=== PATIENT | male | born 1950 | race Caucasian/White ===

== ENCOUNTER 2016-12-25 21:20 | Inpatient (IN) | payer MEDICARE, MEDICAID ==
--- NOTE | 2016-12-25 21:42 | ED Physician Chart ---
Chief Complaint/HPI - Patient Information Date Seen:: 12/25/16 Time Seen:: 21:17 Chief Complaint:: ABDOMINAL PAIN History of Present Illness:: THIS IS A 66 YR OLD [facility] PATIENT SENT HERE FOR AN EVALUATION OF HIS ABDOMINAL PAIN AND DIZZINESS. HE IS CHRONICALLY ILL WITH COPD, CONVULSIONS, OBESITY AND PARKINSON'S . Allergies:: Allergies Allergy/AdvReac Type Severity Reaction Status Date / Time Penicillins Allergy Verified 12/25/16 21:30 Historian:: Patient Review:: Nurse's Note Reviewed Review of Systems - Review of Systems General/Constitutional: No fever, No chills, No weight loss, No weakness, No diaphoresis, No edema, No loss of appetite Skin: No skin lesions, No rash, No bruising, Other (THSI PATIENT IS NOT A RELIABLE HISTORIAN) Head: No headache, No light-headedness Eyes: No loss of vision, No pain, No diplopia ENT: No earache, No nasal drainage, No sore throat, No tinnitus Neck: No neck pain, No swelling, No thyromegaly, No stiffness, No mass noted Cardio Vascular: No chest pain, No palpitations, No PND, No orthopnea, No edema Pulmonary: No SOB, No cough, No sputum, No wheezing GI: No nausea, No vomiting, No diarrhea, No pain, No melena, No hematochezia, No constipation, No hematemesis G/U: No dysuria, No frequency, No hematuria Musculoskeletal: No bone or joint pain, No back pain, No muscle pain Endocrine: No polyuria, No polydipsia Psychiatric: No prior psych history, No depression, No anxiety, No suicidal ideation Hematopoietic: No bruising, No lymphadenopathy Allergic/Immuno: No urticaria, No angioedema Neurological: No syncope, No focal symptoms, No weakness, No paresthesia, No headache, No seizure, No dizziness, No confusion, No vertigo Past Medical History - Past Medical History Obtainable: Yes Past Medical History: HTN, Asthma/COPD, Dyslipidemia, Seizures, Cataract Family History: None Social History: Non Smoker, No Alcohol, No Drug Use Surgical History: None Psychiatricy History: Schizophrenia, Bipolar, Dementia Medication: Reviewed Family Medical History - Family Member Mother History Unknown: Yes Physical Exam - Physical Examination General/Constitutional: Awake, Well-developed, well-nourished, Alert, No distress, GCS 15, Non-toxic appearing, Ambulatory Head: Atraumatic Eyes: Lids, conjuctiva normal, PERRL, EOMI Skin: Nl inspection, No rash, No skin lesions, No ecchymosis, Well hydrated, No lymphadenopathy ENMT: External ears, nose nl, Nasal exam nl, Lips, teeth, gums nl Neck: Nontender, Full ROM w/o pain, No JVD, No nuchal rigidity, No bruit, No mass, No stridor Respiratory: Nl effort/Exclusion, Clear to Auscultation Other Respiratory comments:: BILATERAL RHONCHI WITH A FEW WHEEZES Cardio Vascular: RRR, No murmur, gallop, rubs, NL S1 S2 GI: No organomegaly, No hernia, Normal BS's, No mass/bruits, No McBurney tenderness Other GI comments:: THERE IS MINIMAL RIGHT LOWER QUADRANT TENDERNESS. ABDOMEN IS SLIGHTLY DISTENDED : No CVA tenderness Extremities: No tenderness or effusion, Full ROM, normal strength in all extremities, No edema, Normal digits & nails Other Extremities comments:: SIGNIFICANT MUSCLE WASTING IN ALL FOUR EXTREMITIES. Neuro/Psych: Alert/oriented, DTR's symmetric, Normal sensory exam, Normal motor strength, Judgement/insight normal, Mood normal, Normal gait, No focal deficits Misc: normal gait, Normal back, No paraspinal tenderness Labs/Radiology/EKG Results - Lab Results Results: Laboratory Results - last 24 hr 12/25/16 12/25/16 12/25/16 21:50 21:50 21:50 WBC 11.7 H D RBC 4.58 Hgb 14.8 Hct 43.8 MCV 95.6 MCH 32.4 H MCHC Differential 33.9 RDW 13.5 Plt Count 207 MPV 9.4 Neutrophils % 74.8 Lymphocytes % 11.9 L Monocytes % 5.7 Eosinophils % 5.3 H Basophils % 2.3 H PT 11.7 H INR 1.17 Sodium 137 Potassium 4.1 Chloride 105 Carbon Dioxide 31.0 Anion Gap 5.1 L BUN 22 Creatinine 0.9 Est GFR ( Amer) > 60.0 Est GFR (Non-Af Amer) > 60.0 BUN/Creatinine Ratio 24.4 Glucose 134 H Calcium 9.9 Total Bilirubin 0.4 AST 17 ALT 7 Alkaline Phosphatase 38 Troponin I Total Protein 7.6 Albumin 4.0 L Globulin 3.6 Albumin/Globulin Ratio 1.1 Urine Source Urine Color Urine Clarity Urine pH Ur Specific [place] Urine Protein Urine Glucose (UA) Urine Ketones Urine Blood Urine Nitrate Urine Bilirubin Urine Urobilinogen Ur Leukocyte Esterase Urine RBC Urine WBC Ur Epithelial Cells Urine Bacteria 12/25/16 12/25/16 21:50 22:00 WBC RBC Hgb Hct MCV MCH MCHC Differential RDW Plt Count MPV Neutrophils % Lymphocytes % Monocytes % Eosinophils % Basophils % PT INR Sodium Potassium Chloride Carbon Dioxide Anion Gap BUN Creatinine Est GFR ( Amer) Est GFR (Non-Af Amer) BUN/Creatinine Ratio Glucose Calcium Total Bilirubin AST ALT Alkaline Phosphatase Troponin I 0.01 Total Protein Albumin Globulin Albumin/Globulin Ratio Urine Source CLEAN C Urine Color YELLOW Urine Clarity CLEAR Urine pH 7.0 Ur Specific [place] 1.025 Urine Protein NEGATIVE Urine Glucose (UA) NEGATIVE Urine Ketones TRACE Urine Blood NEGATIVE Urine Nitrate NEGATIVE Urine Bilirubin NEGATIVE Urine Urobilinogen 1.0 Ur Leukocyte Esterase NEGATIVE Urine RBC 0-2 H Urine WBC 0-2 Ur Epithelial Cells OCCASIONAL Urine Bacteria OCCASIONAL - Radiology Results Results: CHEST X-RAY = CARDIOMEGALY - EKG Interpretations EKG Time:: 21:40 Rhythm: NORMAL SINUS [place]: LEFT AXIS Rate: 74 ED Septic Shock - . Is Septic Shock (SBP<90, OR Lactate>4 mmol\L) present?: No Reassessment (Disposition) - Reassessment Reassessment Condition:: Unchanged - Diagnosis Diagnosis:: ABDOMINAL PAIN BRONCHITIS - Patient Disposition Discharge/Transfer:: Acute Care w/in this hosp Admitting Medical Physician:: Juno Harden Condition at Disposition:: Unchanged
[2016-12-25 22:09] LABS: % BASOPHILS 2.3 % (0.0-2.0); % EOSINOPHILS 5.3 % (0.0-5.0); % LYMPHOCYTES 11.9 % (20.0-50.0); % MONOCYTES 5.7 % (2.0-10.0); % NEUTROPHILS 74.8 % (40.0-80.0); HEMATOCRIT 43.8 % (39.0-49.0); HEMOGLOBIN 14.8 gm/dL (13.2-17.3); MEAN CELL VOLUME 95.6 fl (80-99); MEAN CORPUSCULAR HEMOGLOBIN 32.4 pg (26.0-30.0); MEAN CORPUSCULAR HGB CONC 33.9 pg (28.0-36.0); MEAN PLATELET VOLUME 9.4 fl; NEUTROPHILE ABSOLUTE 8.7 Th/cmm (1.8-8.0); PLATELET COUNT 207 Th/cmm (150-400); RED BLOOD COUNT 4.58 Mil/cmm (4.30-5.70); RED CELL DISTRIBUTION WIDTH 13.5 % (11.5-20.0)
[2016-12-25 22:10] LABS: WHITE BLOOD COUNT 11.7 Th/cmm (4.8-10.8)
[2016-12-25 22:16] LABS: ALB/GLOB RATIO 1.1 (1.0-1.8); ALKALINE PHOSPHATASE 38 U/L (34-104); ANION GAP 5.1 (7.0-16.0); BILIRUBIN,TOTAL 0.4 mg/dL (0.3-1.0); BUN - UREA NITROGEN 22 mg/dL (7-25); BUN/CREATININE RATIO 24.4; CALCIUM SERUM 9.9 mg/dL (8.6-10.3); CHLORIDE 105 mEq/L (98-107); CREATININE - SERUM 0.9 mg/dL (0.7-1.3); GLUCOSE 134 mg/dL (70-105); POTASSIUM SERUM 4.1 mEq/L (3.5-5.1); SGOT 17 U/L (13-39); SGPT/ALT 7 U/L (7-52); SODIUM SERUM 137 mEq/L (136-145)
[2016-12-25 22:17] LABS: INR 1.17 (0.5-1.4); PROTHROMBIN TIME (TEST) 11.7 SECONDS (9.5-11.5)
[2016-12-25 22:28] LABS: URINE BILIRUBIN NEGATIVE (NEGATIVE); URINE BLOOD NEGATIVE (NEGATIVE); URINE COLOR YELLOW; URINE GLUCOSE (UA) NEGATIVE (NEGATIVE); URINE KETONE TRACE mg/dL (NEGATIVE)
[2016-12-25 22:29] LABS: URINE BACTERIA OCCASIONAL /hpf (NONE SEEN); URINE EPITHELIAL CELLS OCCASIONAL /lpf (FEW); URINE PROTEIN NEGATIVE (NEGATIVE); URINE RBC 0-2 /hpf (0-5); URINE WBC 0-2 /hpf (0-5)
[2016-12-25] MEDS ORDERED: Magnesium Hydroxide (MOM) 30 mL UDC PO PRN (22:56)
[2016-12-25] MEDS ORDERED: Maalox 30 mL Cup PO PRN (22:56)
[2016-12-25] MEDS ORDERED: guaiFENesin 200 MG/10 ML UDC PO PRN (23:00)
[2016-12-25] MEDS ORDERED: Ipratropium Neb 0.5 mg/2.5 mL UD HHN ONE (23:12)
[2016-12-25] MEDS ORDERED: Albuterol Nebulizer 2.5mg/3mL HHN ONE (23:12)
[2016-12-26] MEDS: D5-0.45NS 1,000 ML IV SCH ×2 (00:11→12:34)
[2016-12-26] MEDS ORDERED: Levofloxacin 500mg/100mL 500 MG/100 ML BAG IV ONE (01:46)
[2016-12-26] MEDS: Levofloxacin 500mg/100mL 500 MG/100 ML BAG IV SCH ×2 (01:57→23:04)
[2016-12-26] MEDS: Lactulose 10 Gm/15 mL 30mL UDC PO SCH ×3 (08:09→17:56)
[2016-12-26] MEDS ORDERED: Ipratropium Neb 0.5 mg/2.5 mL UD HHN SCH ×2 (09:00→11:00)
[2016-12-26] MEDS ORDERED: Albuterol Nebulizer 2.5mg/3mL HHN SCH ×2 (09:00→11:00)
[2016-12-26] MEDS: Aspirin 81mg Chewable Tab PO SCH (09:40)
[2016-12-26] MEDS: Benztropine 1 MG TAB PO SCH ×2 (09:41→17:53)
[2016-12-26] MEDS: Fenofibrate, Micronized 134 mg Cap PO SCH (09:42)
[2016-12-26] MEDS: Pantoprazole 40 mg EC Tab PO SCH ×2 (09:44→17:54)
[2016-12-26] MEDS: Multivitamin Tab PO SCH (09:44)
--- NOTE | 2016-12-26 11:24 | Diagnostic Imaging Report ---
Portable chest x-ray HISTORY: Shortness of breath The heart size is difficult to assess with portable technique in a poor inspiration, but appears generous. Density is noted about the left costophrenic angle suggesting a small pleural effusion. IMPRESSION: 1. Findings suggesting a small left pleural effusion 2. Suggestion of a generous heart size
--- NOTE | 2016-12-26 20:06 | Admit Criteria Form ---
Admit Criteria Forms - Admit Criteria Diagnosis: ABDOMINAL PAIN Clinical Indications for Admission to Inpatient Care (Place 'X' for any and all applicable criteria): Admission is indicated for ANY ONE of the following(1)(2)(3)(4)(5): [X]I. Inpatient admission required rather than observation care (Also use Abdominal Pain: Observation Care, as appropriate) because of ANY ONE of the following: [ ]a) Severe pain requiring acute inpatient management [ ]b) Identification of etiology/finding that requires inpatient care (eg, aortic dissection, free air) [ ]c) Absent bowel sounds with complete ileus(6) [ ]d) Suspected toxic megacolon [ ]e) Severe electrolyte abnormalities requiring inpatient care [ ]f) High fever or infection requiring inpatient admission as indicated by ANY ONE of following(7)(8): [ ] i) Appropriate outpatient or observational care antimicrobial treatment unavailable, not effective, or not feasible [ ] ii) Documented bacteremia [ ] iii) Temperature > 104.9 degrees F (oral) [ ] iv) T >103.1 F (oral) or < 96.8 F(rectal) that does not respond to all emergency treatment measures [ ]g) Signs of intestinal obstruction [B] [ ]h) Hemodynamic instability [ ]i) IV fluid to replace significant ongoing losses (greater than 3 L/m2 per day) (12)(13) [ ]j) Percutaneous or open drainage (eg, abscess, biliary tract ) procedures [ ]k) Parenteral nutrition regimen that must be implemented on inpatient basis [X]l) Other condition,treatment or monitoring requiring inpatient admission. [ ]II. Peritoneal signs present [ ]III. Surgery needed that cannot be performed on an ambulatory basis. [ ]IV. Evaluation requires patient to not eat or drink for extended period ( eg, more than 24 hours). [ ]V. Contraindications and/or Inappropriate clinical situations for Observational Care in patients with abdominal pain, when ANY ONE of the following is required: [ ]a) Thorough evaluation is required to prevent catastrophic events due to delays in diagnosing (e.g.Mesenteric ischemia) 1,3 [ ]b) Patient with severe pathology or with chronic symptoms unlikely to improve in the ED stay (3) [ ]. General contraindications and/or Inappropriate clinical situations for Observational Care in patients with abdominal pain, when ANY ONE of the following is required: [ ]a) Prediction of prolongation of LOS based on ANY ONE of the following may be considered as a contraindication for observational care 2, 3, 4, 5, 6, 7, 8, 9, 10, 11 [ ]i) Age > 65 yrs. [ ]ii) Patient arriving by ambulance [ ]iii) Patient with high acuity [ ]iv) Patient requiring vital sign monitoring [ ]v) Patient on IV medication [ ]b) Systolic blood pressures 180mmHg 3,12 [ ]c) Patient with altered mental status including delirium and other alteration of consciousness, (3) [ ]d) Patient whose discharge disposition will be to a usp home or rehabilitation home should not be managed in Emergency Department Observation Unit. CMS rule requires 3 days hospital stay before such placement.3,13 [ ]e) Patient with failure to thrive due to broad array of etiologies 3,16,17 [ ]f) Inability to ambulate 3,14 Extended stay beyond goal length of stay may be needed for(2)(3): [ ]a) Persistent abdominal pain with suspected intra-abdominal process [ ]b) Diagnosed condition requiring continued stay (e.g., pancreatitis, complicated diverticulitis) [ ]c) Surgery (e.g., colectomy) The original [facility] content created by [employer] has been revised. The portions of the content which have been revised are identified through the use of italic text or in bold, and [facility] has neither reviewed nor approved the modified material.All other unmodified content is copyright [facility]. Please see references footnoted in the original [facility] edition 2016 Admit Criteria Met?: Yes
[2016-12-26] MEDS: Atorvastatin Calcium 10 MG TAB PO SCH (20:50)
[2016-12-27 05:57] LABS: HEMATOCRIT 39.7 % (39.0-49.0); HEMOGLOBIN 13.5 gm/dL (13.2-17.3); MEAN CELL VOLUME 96.3 fl (80-99); MEAN CORPUSCULAR HEMOGLOBIN 32.7 pg (26.0-30.0); MEAN CORPUSCULAR HGB CONC 33.9 pg (28.0-36.0); MEAN PLATELET VOLUME 8.7 fl; PLATELET COUNT 181 Th/cmm (150-400); RED BLOOD COUNT 4.12 Mil/cmm (4.30-5.70); RED CELL DISTRIBUTION WIDTH 13.8 % (11.5-20.0); WHITE BLOOD COUNT 5.4 Th/cmm (4.8-10.8)
[2016-12-27 06:13] LABS: ALB/GLOB RATIO 1.1 (1.0-1.8); ALKALINE PHOSPHATASE 35 U/L (34-104); ANION GAP 2.2 (7.0-16.0); BILIRUBIN,TOTAL 0.3 mg/dL (0.3-1.0); BUN - UREA NITROGEN 17 mg/dL (7-25); BUN/CREATININE RATIO 18.9; CALCIUM SERUM 8.8 mg/dL (8.6-10.3); CARBON DIOXIDE 30.7 mEq/L (21.0-31.0); CHLORIDE 104 mEq/L (98-107); CREATININE - SERUM 0.9 mg/dL (0.7-1.3); GLUCOSE 89 mg/dL (70-105); MAGNESIUM 1.6 mg/dL (1.9-2.7); POTASSIUM SERUM 3.9 mEq/L (3.5-5.1); SGOT 12 U/L (13-39); SGPT/ALT 5 U/L (7-52); SODIUM SERUM 133 mEq/L (136-145)
[2016-12-27] MEDS: Lactulose 10 Gm/15 mL 30mL UDC PO SCH ×4 (06:51→17:37)
[2016-12-27 07:51] LABS: BASOPHIL 1 % (0-3); EOSINOPHIL 16 % (0-5); NEUTROPHILS 42 % (40-80); PLATELET ESTIMATE ADEQUATE (NORMAL); PLATELET MORPHOLOGY NORMAL (NORMAL); TOTAL CELLS COUNTED 100
--- NOTE | 2016-12-27 09:00 | History & Physical ---
CHIEF COMPLAINT: Abdominal pain and shortness of breath. HISTORY OF PRESENT ILLNESS: This is a 66-year-old male with a history of stroke, DJD, hypercholesterolemia, schizoaffective disorder and Parkinson's, was admitted from nursing facility secondary to not feeling well with increasing shortness of breath, generalized weakness. The patient was also complaining of abdominal discomfort. The patient is not a best historian. PAST MEDICAL HISTORY: As mentioned in history of present illness. PAST SURGICAL HISTORY: Status post ELECTRICIAN CHIEF shunt, craniotomy. ALLERGIES: PENICILLIN. The patient was given Rocephin ____. MEDICATIONS: Tylenol, aspirin, Lipitor, Cogentin, Sinemet, Depakote, ____, lactulose, magnesium, multivitamins, Ditropan, ____, BuSpar. FAMILY HISTORY: Noncontributory. SOCIAL HISTORY: The patient is a residential patient requiring 24-hour total care. The patient is an avid smoker. PHYSICAL EXAMINATION: VITAL SIGNS: Blood pressure 110/66, respirations 18, pulse 67, temperature 98.4. GENERAL: Elderly male who appears his stated age and appears chronically ill. NECK: Supple. No mass. LUNGS: Equal breath sounds with a few rhonchi. HEART: Regular rate and rhythm without appreciable murmurs. ABDOMEN: Soft, nontender, and globular. Positive bowel sounds. EXTREMITIES: ____ excoriations. Trace edema. NEUROLOGIC: Limited, moving 4 extremities. LABORATORY DATA: WBC ____, hemoglobin 14, ____. INR 1.1. Sodium 137, potassium 4.1, BUN 22, creatinine 0.9, blood sugar 134, and albumin 4.0. ASSESSMENT AND PLAN: Acute chronic obstructive pulmonary disease exacerbation, acute bronchitis, generalized weakness, leukocytosis, abdominal pain of unclear etiology, stroke, degenerative joint disease, hypercholesterolemia, schizoaffective disorder and Parkinson's. We will continue with gentle IV hydration, continue IV antibiotic. We will review the patient's chest x-ray. We will ____ ultrasound. We will monitor the patient's liver function tests. We will continue to monitor the patient closely. JOB# [id number]
--- NOTE | 2016-12-27 09:20 | Diagnostic Imaging Report ---
CHEST X-RAY: AP view INDICATION: Pneumonia COMPARISON: 12/25/2016 FINDINGS: Lower lung volume are seen with bibasal atelectatic changes and small left effusion. No focal consolidation identified. Heart size is difficult to assess on this exam. IMPRESSION: Persistent low lung volumes with bibasal atelectasis and small left effusion.
[2016-12-27] MEDS: Fenofibrate, Micronized 134 mg Cap PO SCH (09:29)
[2016-12-27] MEDS: Aspirin 81mg Chewable Tab PO SCH (09:29)
[2016-12-27] MEDS: Pantoprazole 40 mg EC Tab PO SCH ×2 (09:29→17:37)
[2016-12-27] MEDS: Multivitamin Tab PO SCH (09:29)
[2016-12-27] MEDS: Benztropine 1 MG TAB PO SCH ×2 (09:30→17:37)
--- NOTE | 2016-12-27 10:29 | Diagnostic Imaging Report ---
Ultrasound abdomen HISTORY: Abdominal pain COMPARISON: None Technique: Sonography of the abdomen was performed in multiple planes. FINDINGS: Exam is markedly limited due to body habitus. The liver demonstrates increased echogenicity and measures 23cm. The liver margins are not well-defined, limiting evaluation for focal lesions. There is suboptimal visualization of the gallbladder. No discrete gallstones identified. The gallbladder wall measures 3 mm. The common bile duct was also not seen. Assessment of pancreas is also limited due to bowel gas. The right kidney measures 11.9 cm. Left kidney measures 12.8 cm. Limited evaluation of the kidneys demonstrates no obvious focal lesions or hydronephrosis. The spleen measures 12.6 cm. The proximal abdominal aorta measures 2.6 cm. The mid and distal abdominal aorta were not well visualized. IMPRESSION: Markedly limited exam due to body habitus. Hepatomegaly with increased echogenicity which may reflect underlying hepatocellular disease, correlate clinically. Suboptimal evaluation of the gallbladder. No evidence of hydronephrosis. Mild increased left renal size was noted. Borderline prominent spleen. If indicated CT exam would provide for additional detail and assessment.
[2016-12-27] MEDS: D5-0.45NS 1,000 ML IV SCH (12:41)
--- NOTE | 2016-12-27 14:23 | Internal Medicine Prog Note ---
Internal Medicine Subjective - Subjective Service Date: 12/27/16 Patient is:: awake Patient Complaints of:: cough, other Internal Medicine Objective - Results Result Diagrams: 12/27/16 05:30 12/27/16 05:30 Recent Labs: Laboratory Last Values WBC 5.4 Th/cmm (4.8-10.8) D 12/27/16 05:30 RBC 4.12 Mil/cmm (4.30-5.70) L 12/27/16 05:30 Hgb 13.5 gm/dL (13.2-17.3) 12/27/16 05:30 Hct 39.7 % (39.0-49.0) 12/27/16 05:30 MCV 96.3 fl (80-99) 12/27/16 05:30 MCH 32.7 pg (26.0-30.0) H 12/27/16 05:30 MCHC Differential 33.9 pg (28.0-36.0) 12/27/16 05:30 RDW 13.8 % (11.5-20.0) 12/27/16 05:30 Plt Count 181 Th/cmm (150-400) 12/27/16 05:30 MPV 8.7 fl 12/27/16 05:30 Neutrophils % 74.8 % (40.0-80.0) 12/25/16 21:50 Lymphocytes % 11.9 % (20.0-50.0) L 12/25/16 21:50 Monocytes % 5.7 % (2.0-10.0) 12/25/16 21:50 Eosinophils % 5.3 % (0.0-5.0) H 12/25/16 21:50 Basophils % 2.3 % (0.0-2.0) H 12/25/16 21:50 Neutrophils (Manual) 42 % (40-80) 12/27/16 05:30 Lymphocytes 32 % (20-50) 12/27/16 05:30 Monocytes 8 % (2-10) 12/27/16 05:30 Eosinophils 16 % (0-5) H 12/27/16 05:30 Basophils 1 % (0-3) 12/27/16 05:30 Atypical Lymphocytes 1 % 12/27/16 05:30 Platelet Estimate ADEQUATE (NORMAL) 12/27/16 05:30 Platelet Morphology NORMAL (NORMAL) 12/27/16 05:30 RBC Morph Micro Appear NORMAL (NORMAL) 12/27/16 05:30 PT 11.7 SECONDS (9.5-11.5) H 12/25/16 21:50 INR 1.17 (0.5-1.4) 12/25/16 21:50 Sodium 133 mEq/L (136-145) L 12/27/16 05:30 Potassium 3.9 mEq/L (3.5-5.1) 12/27/16 05:30 Chloride 104 mEq/L (98-107) 12/27/16 05:30 Carbon Dioxide 30.7 mEq/L (21.0-31.0) 12/27/16 05:30 Anion Gap 2.2 (7.0-16.0) L 12/27/16 05:30 BUN 17 mg/dL (7-25) 12/27/16 05:30 Creatinine 0.9 mg/dL (0.7-1.3) 12/27/16 05:30 Est GFR ( Amer) > 60.0 ml/min (>90) 12/27/16 05:30 Est GFR (Non-Af Amer) > 60.0 ml/min 12/27/16 05:30 BUN/Creatinine Ratio 18.9 12/27/16 05:30 Glucose 89 mg/dL (70-105) 12/27/16 05:30 Calcium 8.8 mg/dL (8.6-10.3) 12/27/16 05:30 Magnesium 1.6 mg/dL (1.9-2.7) L 12/27/16 05:30 Total Bilirubin 0.3 mg/dL (0.3-1.0) 12/27/16 05:30 AST 12 U/L (13-39) L 12/27/16 05:30 ALT 5 U/L (7-52) L 12/27/16 05:30 Alkaline Phosphatase 35 U/L (34-104) 12/27/16 05:30 Ammonia 136 umol/L (16-53) H 12/27/16 05:30 Troponin I 0.01 ng/mL (0.01-0.05) 12/25/16 21:50 Total Protein 6.3 gm/dL (6.0-8.3) 12/27/16 05:30 Albumin 3.3 gm/dL (4.2-5.5) L 12/27/16 05:30 Globulin 3.0 gm/dL 12/27/16 05:30 Albumin/Globulin Ratio 1.1 (1.0-1.8) 12/27/16 05:30 TSH 1.91 uIU/ml (0.34-5.60) 12/25/16 21:50 Urine Source CLEAN C 12/25/16 22:00 Urine Color YELLOW 12/25/16 22:00 Urine Clarity CLEAR (CLEAR) 12/25/16 22:00 Urine pH 7.0 12/25/16 22:00 Ur Specific [place] 1.025 (1.005-1.030) 12/25/16 22:00 Urine Protein NEGATIVE mg/dL (NEGATIVE) 12/25/16 22:00 Urine Glucose (UA) NEGATIVE mg/dL (NEGATIVE) 12/25/16 22:00 Urine Ketones TRACE mg/dL (NEGATIVE) 12/25/16 22:00 Urine Blood NEGATIVE (NEGATIVE) 12/25/16 22:00 Urine Nitrate NEGATIVE (NEGATIVE) 12/25/16 22:00 Urine Bilirubin NEGATIVE (NEGATIVE) 12/25/16 22:00 Urine Urobilinogen 1.0 E.U./dL (0.2 - 1.0) 12/25/16 22:00 Ur Leukocyte Esterase NEGATIVE (NEGATIVE) 12/25/16 22:00 Urine RBC 0-2 /hpf (0-5) H 12/25/16 22:00 Urine WBC 0-2 /hpf (0-5) 12/25/16 22:00 Ur Epithelial Cells OCCASIONAL /lpf (FEW) 12/25/16 22:00 Urine Bacteria OCCASIONAL /hpf (NONE SEEN) 12/25/16 22:00 - Physical Exam Vitals and I&O: Vital Signs Temp 98.2 F 12/27/16 12:07 Pulse 75 12/27/16 12:07 Resp 18 12/27/16 12:07 BP 137/72 12/27/16 12:07 Pulse Ox 96 12/27/16 12:07 Intake & Output 12/26/16 12/27/16 12/27/16 18:59 06:59 18:59 Intake Total 777.348 0078 Balance 746.461 1945 Intake: Intake, IV Amount 555.104 7273 D5-0.45NS 1,000 ml @ 80 358.906 8455 mls/hr IV .[id number] [facility] Rx #:[id number] Active Medications: Current Medications Acetaminophen (Tylenol) 650 mg PO Q4H PRN PRN Reason: PAIN OR FEVER >100.5 Stop: 02/24/17 00:21 Last Admin: 12/26/16 13:37 Dose: 650 mg Al Hydrox/Mg Hydrox/Simethicone (Maalox) 30 ml PO Q6HR PRN PRN Reason: GI DISTRESS Stop: 02/23/17 22:55 Albuterol Sulfate (Albuterol 2.5mg/3ml Neb Ud) 2.5 mg HHN QIDRT [facility] Stop: 02/24/17 10:59 Ascorbic Acid (Vitamin C) 500 mg PO DAILY [facility] Stop: 02/24/17 08:59 Last Admin: 12/27/16 09:30 Dose: 500 mg Aspirin (Aspirin Chewable) 81 mg PO DAILY [facility] Stop: 02/24/17 08:59 Last Admin: 12/27/16 09:29 Dose: 81 mg Atorvastatin Calcium (Lipitor) 20 mg PO HS [facility] Stop: 02/24/17 20:59 Last Admin: 12/26/16 20:50 Dose: 20 mg Benztropine Mesylate (Cogentin) 1 mg PO BID [facility] Stop: 02/24/17 08:59 Last Admin: 12/27/16 09:30 Dose: 1 mg Buspirone HCl (Buspar) 10 mg PO BID [facility] PRN Reason: Protocol Stop: 02/24/17 08:59 Last Admin: 12/27/16 09:30 Dose: 10 mg Carbamazepine (Tegretol) 600 mg PO Q12HR [facility] PRN Reason: Protocol Stop: 02/24/17 08:59 Last Admin: 12/27/16 09:29 Dose: 600 mg Carbidopa/Levodopa (Sinemet 25mg-100 Mg) 1 tab PO TID [facility] Stop: 02/24/17 08:59 Last Admin: 12/27/16 09:29 Dose: 1 tab Divalproex Sodium (Depakote Dr) 1,000 mg PO BID [facility] Stop: 02/24/17 08:59 Last Admin: 02/22/17 09:29 Dose: 1,000 mg Divalproex Sodium (Depakote Dr) 500 mg PO HS [facility] Stop: 02/24/17 20:59 Last Admin: 12/26/16 20:51 Dose: 500 mg Docusate Sodium (Colace) 100 mg PO DAILY [facility] Stop: 02/24/17 08:59 Last Admin: 12/27/16 09:30 Dose: 100 mg Fenofibrate (Tricor) 134 mg PO DAILY [facility] Stop: 02/24/17 08:59 Last Admin: 12/27/16 09:29 Dose: 134 mg Guaifenesin (Robitussin) 200 mg PO Q4HR PRN PRN Reason: Cough or Congestion Stop: 02/23/17 22:59 Heparin Sodium (Porcine) (Heparin) 5,000 units SUBQ Q12HR [facility] Stop: 02/24/17 08:59 Last Admin: 12/27/16 09:30 Dose: 5,000 units Dextrose/Sodium Chloride (D5-0.45ns) 1,000 mls @ 80 mls/hr IV .[id number] [facility] Stop: 02/23/17 22:59 Last Admin: 12/27/16 12:41 Dose: 80 mls/hr Levofloxacin (Levaquin Pb) 500 mg in 100 mls @ 100 mls/hr IV Q24HR [facility] Stop: 02/23/17 22:59 Last Admin: 12/26/16 23:04 Dose: 100 mls/hr Ipratropium [place] (Atrovent Neb 0.5mg/2.5ml) 0.5 mg HHN QIDRT [facility] Stop: 02/24/17 10:59 Lactulose (Cephulac) 40 gm PO Q6HR [facility] Stop: 02/24/17 06:59 Last Admin: 12/27/16 12:40 Dose: Not Given Lorazepam (Ativan) 1 mg IV Q4HR PRN; Protocol PRN Reason: Seizure Stop: 02/23/17 22:59 Losartan Potassium (Cozaar) 100 mg PO DAILY [facility] Stop: 02/24/17 08:59 Last Admin: 12/27/16 09:30 Dose: Not Given Magnesium Hydroxide (Milk Of Magnesia) 30 ml PO HS PRN PRN Reason: Constipation Stop: 02/23/17 22:55 Multivitamins/Vitamin C (Theragran) 1 tab PO DAILY [facility] Stop: 02/24/17 08:59 Last Admin: 12/27/16 09:29 Dose: 1 tab Ondansetron HCl (Zofran) 4 mg IV Q8H PRN PRN Reason: Nausea / Vomiting Stop: 02/23/17 22:59 Oxybutynin Chloride (Ditropan) 5 mg PO HS [facility] Stop: 02/24/17 20:59 Last Admin: 12/26/16 20:50 Dose: 5 mg Pantoprazole Sodium (Protonix) 40 mg PO BID [facility] Stop: 02/24/17 08:59 Last Admin: 12/27/16 09:29 Dose: 40 mg Quetiapine Fumarate (Seroquel) 50 mg PO BID [facility] PRN Reason: Protocol Stop: 02/24/17 08:59 Last Admin: 12/27/16 09:29 Dose: 50 mg General: weak, alert HEENT: NC/AT Neck: Supple Lungs: ronchi Cardiovascular: RRR, Normal S1, Normal S2, without murmur Abdomen: soft non-tender, non-distended, positive bowel sound - Procedures Procedures: Procedures Procedure Code Date GROUP PSYCHOTHERAPY 78625 12/06/15 GROUP PSYCHOTHERAPY [id number] 12/06/15 OTHER GROUP THERAPY 94.44 06/02/14 RECREATIONAL THERAPY 93.81 07/28/11 Internal Medicine Assmt/Plan - Assessment Assessment: COPD EXACERBATION ACUTE BRONCHITIS GENERALIZED WEAKNESS LEUKOCYTOSIS ABDOMINAL PAIN OF UNCLEAR ETIOLOGY HX STROKE DJD HYPERCHOLESTEREMIA SCHIZPHRENIA PARKINSONS - Plan Plan: BRONCHODILATORS SUPPLEMENTAL OXYGEN IVABX LEVAQUIN F/U LABS
[2016-12-27] MEDS ORDERED: Mag Sulfate 2gm/50mL Premix 2 GM/50 ML BAG IV ONE (15:30)
[2016-12-27] MEDS: Atorvastatin Calcium 10 MG TAB PO SCH (21:00)
[2016-12-27] MEDS: Levofloxacin 500mg/100mL 500 MG/100 ML BAG IV SCH (23:23)
[2016-12-28] MEDS: Lactulose 10 Gm/15 mL 30mL UDC PO SCH ×4 (01:08→17:27)
[2016-12-28 06:04] LABS: % BASOPHILS 0.6 % (0.0-2.0); % EOSINOPHILS 10.6 % (0.0-5.0); % LYMPHOCYTES 32.6 % (20.0-50.0); % MONOCYTES 11.4 % (2.0-10.0); % NEUTROPHILS 44.8 % (40.0-80.0); HEMATOCRIT 39.9 % (39.0-49.0); HEMOGLOBIN 13.4 gm/dL (13.2-17.3); MEAN CELL VOLUME 97.1 fl (80-99); MEAN CORPUSCULAR HEMOGLOBIN 32.5 pg (26.0-30.0); MEAN CORPUSCULAR HGB CONC 33.5 pg (28.0-36.0); MEAN PLATELET VOLUME 8.6 fl; NEUTROPHILE ABSOLUTE 2.1 Th/cmm (1.8-8.0); PLATELET COUNT 162 Th/cmm (150-400); RED BLOOD COUNT 4.11 Mil/cmm (4.30-5.70); RED CELL DISTRIBUTION WIDTH 13.8 % (11.5-20.0); WHITE BLOOD COUNT 4.6 Th/cmm (4.8-10.8)
[2016-12-28 06:23] LABS: ALB/GLOB RATIO 1.1 (1.0-1.8); ALKALINE PHOSPHATASE 35 U/L (34-104); ANION GAP 5.6 (7.0-16.0); BILIRUBIN,DIRECT 0.12 mg/dL (0.0-0.2); BILIRUBIN,TOTAL 0.3 mg/dL (0.3-1.0); BUN - UREA NITROGEN 17 mg/dL (7-25); BUN/CREATININE RATIO 21.3; CALCIUM SERUM 8.9 mg/dL (8.6-10.3); CARBON DIOXIDE 30.3 mEq/L (21.0-31.0); CHLORIDE 104 mEq/L (98-107); CREATININE - SERUM 0.8 mg/dL (0.7-1.3); GLUCOSE 101 mg/dL (70-105); POTASSIUM SERUM 3.9 mEq/L (3.5-5.1); SGOT 12 U/L (13-39); SGPT/ALT 5 U/L (7-52); SODIUM SERUM 136 mEq/L (136-145)
--- NOTE | 2016-12-28 07:20 | Consultation ---
REASON FOR CONSULTATION: High ammonia level. HISTORY OF PRESENT ILLNESS: This consult was obtained through the courtesy of Dr. Harden for this 66-year-old with history of CVA, degenerative joint disease, schizoaffective disorder, Parkinson's disease, hyperlipidemia, admitted from a retirement for not feeling well, shortness of breath, weakness and abdominal pain. Evaluation showed hepatomegaly and lab work showed increased ammonia level. The patient is responsive, communicating, seems coherent, but he has no insight into his medical condition, he denies having any abdominal pain, surgery or any symptoms. PAST MEDICAL HISTORY: As above. 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 SOCIAL HISTORY: Nonsmoker, nonalcoholic, IV drug abuser. FAMILY HISTORY: Unobtainable. REVIEW OF SYSTEMS: Technically negative, but in retrospect, the patient is not fully aware of this condition. ALLERGIES: PENICILLIN. MEDICATIONS: Included Tylenol, aspirin, Lipitor, Sinemet, Depakote, Cogentin, lactulose, multivitamin, Ditropan, BuSpar. PHYSICAL EXAMINATION: GENERAL: The patient is awake, oriented to self. VITAL SIGNS: Blood pressure is 129/71, heart rate 71, respiratory rate 19, and temperature 98.1. HEAD AND NECK: Pupils reactive to light. Extraocular muscles intact. Sclerae are anicteric. Conjunctivae not pale. Oral cavity, no lesion. NECK: Supple, no jugular venous distention, no carotid bruit or lymph node. CHEST: Good respiratory movements. LUNGS: Clear to auscultation. CARDIOVASCULAR: Regular rate and rhythm. No murmur or gallop. ABDOMEN: Obese, soft, positive bowel sounds. EXTREMITIES: Lower extremities, no edema. CENTRAL NERVOUS SYSTEM: The patient having tremors. No asterixis. LABORATORY DATA: ____ PT is 11.7 seconds, white count was 11.7 on presentation, now 5.4. Platelets are 181, H and H are normal. Chemistry showed ammonia of 136, albumin of 3.3. Ultrasound showed hepatomegaly, increased echogenicity. IMPRESSION: A 66-year-old with multiple medical problems, now with high ammonia. ASSESSMENT AND PLAN: 1. Abdominal pain, most probably enteritis, seems to have resolved. Advance diet and if the patient clinically has recurrent symptoms, then consider CAT scan. 2. High ammonia level. The patient already on lactulose, so he might have chronic liver disease. We will do workup for chronic liver disease including hepatitis profile, GUILLERMO, ferritin, etc. We will recheck the ammonia level in the morning. If improving continue, if not, we will add Xifaxan. Other medical problems such as schizoaffective disorder, degenerative joint disease, CVA, etc., as per Dr. Harden. Thank you, Dr. Harden for allowing me to participate in the care of this patient. If you have any further questions, please let me know. JOB# [id number] MTDD
--- NOTE | 2016-12-28 07:45 | Consultation ---
PSYCHIATRIC CONSULTATION: The patient was seen, chart reviewed, discussed with staff. HISTORY OF PRESENT ILLNESS: The patient is a 66-year-old male known to myself from prior treatment at this longterm facility, also on inpatient ____. The patient has a history of schizoaffective disorder, currently admitted to the hospital with some weakness, coughing, abdominal pain and dizziness. The patient has been restless at times, anxious, displaying hypersexual behavior, episodes of agitation, which has been also a problem recently at his longterm. The patient is taking his medications and denied feeling depressed. PAST PSYCHIATRIC HISTORY: Multiple hospitalizations, chronic history of mental illness. PAST MEDICAL HISTORY: COPD, history of CVA and possible infection, slight dehydration. PSYCHOSOCIAL HISTORY: The patient resides in [facility] and requires complete care. MENTAL STATUS EXAMINATION: The patient was somewhat irritable, made fair eye contact, some difficulty talking. Speech is dysarthric, word finding difficulty. The patient is slightly guarded and paranoid, does not have any hallucinations; however, the patient is oriented to person, knew he was in the hospital, did not know the time. ASSESSMENT: Schizoaffective disorder in psychotic phase. PLAN: We will continue current medication regimen. We will continue the current dose of Seroquel. We will provide supportive measures. Consider psychiatric hospitalization if his agitation and hypersexual behavior continues, which the patient has been to the [facility] for similar problem in the past. We will monitor closely. Thank you for the consultation. JOB# [id number]
[2016-12-28] MEDS: Pantoprazole 40 mg EC Tab PO SCH ×2 (08:49→17:24)
[2016-12-28] MEDS: Multivitamin Tab PO SCH (08:50)
[2016-12-28] MEDS: Benztropine 1 MG TAB PO SCH ×2 (08:50→17:24)
[2016-12-28] MEDS: Aspirin 81mg Chewable Tab PO SCH (08:50)
[2016-12-28] MEDS: Fenofibrate, Micronized 134 mg Cap PO SCH (08:51)
[2016-12-28 14:20] LABS: FOLIC ACID 10.7 ng/mL (>3.0)
[2016-12-28] MEDS: Atorvastatin Calcium 10 MG TAB PO SCH (20:51)
[2016-12-28 23:52] VITALS: BP 122/72
[2017-01-01 04:10] LABS: CERULOPLASMIN 17.3 mg/dL (16.0-31.0); FERRITIN 142 ng/mL (30-400); HEP B CORE IGM Negative (Negative); HEP C ANTIBODY <0.1 s/co ratio (0.0-0.9)
--- NOTE | 2017-02-11 08:19 | Discharge Summary ---
FINAL DIAGNOSES: Acute chronic obstructive pulmonary disease exacerbation, acute bronchitis, generalized weakness, leukocytosis, abdominal pain of unclear etiology, history of stroke, degenerative joint disease, hypercholesterolemia, schizoaffective disorder, Parkinson's. HOSPITAL COURSE: During the hospital course, the patient was admitted to the med/surg unit. The patient was kept on IV fluids for hydration, also on IV antibiotics. The patient was not feeling well at the nursing facility. For this reason, the patient was transferred to [facility]. The patient had a chest x-ray done and the impression is persistent low lung volumes with bibasilar atelectasis and small left effusion. The patient was also kept on bronchodilators and supplemental oxygen. Abdominal ultrasound was done due to complaining of abdominal pain. Impression was markedly edematous ____ due to ____. The patient had a consultation with GI. His plan of care ____ the abdominal pain was probably enteritis. The patient's abdominal pain has resolved, and the patient was ____, and the patient tolerated the diet well. For this reason, the patient was cleared for discharge to Geropsych unit. CONDITION UPON DISCHARGE: Fair. DISPOSITION: Geropsych Unit. JOB# [id number]
== END 2016-12-28 23:45 | DRG 202 ==
LOC: ER 21:20 → MSI 23:00
PROVIDERS: ADMIT Internal Medicine; ATTEND Internal Medicine
DX: J20.9 Acute bronchitis, unspecified (principal); J44.0 Chronic obstructive pulmonary disease with (acute) lower respiratory infection; G20 Parkinson's disease; F03.90 Unspecified dementia, unspecified severity, without behavioral disturbance, psychotic disturbance, mood disturbance, and anxiety; J44.1 Chronic obstructive pulmonary disease with (acute) exacerbation; M19.90 Unspecified osteoarthritis, unspecified site; E78.5 Hyperlipidemia, unspecified; F25.9 Schizoaffective disorder, unspecified; E66.9 Obesity, unspecified; I10 Essential (primary) hypertension; J45.909 Unspecified asthma, uncomplicated; G40.909 Epilepsy, unspecified, not intractable, without status epilepticus; F31.9 Bipolar disorder, unspecified; E78.00 Pure hypercholesterolemia, unspecified; D72.829 Elevated white blood cell count, unspecified; Z79.82 Long term (current) use of aspirin; Z86.73 Personal history of transient ischemic attack (TIA), and cerebral infarction without residual deficits; Z68.29 Body mass index [BMI] 29.0-29.9, adult; Z88.0 Allergy status to penicillin
CPT/HCPCS: 36415-UA; 71010-TC; 76700-TC; 80048-TC; 80053-TC; 80074-90; 80076-TC; 81001-TC; 82140-TC; 82390-90; 82607-90; 82728-90; 82746-90; 83735-TC; 84443-TC; 84484-TC; 85007-TC; 85025-TC; 85027-TC; 85610-TC; 90779; J0696; J1644; J1956; J3475; J7613; Z7610

== ENCOUNTER 2016-12-27 23:35 | Inpatient (IN) | payer MEDICARE, MEDICAID ==
[2016-12-29 00:22] VITALS: BP 122/72
[2016-12-29] MEDS ORDERED: guaiFENesin 200 MG/10 ML UDC PO PRN (00:38)
[2016-12-29] MEDS ORDERED: Magnesium Hydroxide (MOM) 30 mL UDC PO PRN (00:38)
[2016-12-29] MEDS ORDERED: Maalox 30 mL Cup PO PRN (00:38)
[2016-12-29] MEDS ORDERED: Non-Formulary Item 1 EA (Levofloxacin 500mg/100ml [Levaquin Pb] 500 MG) IV SCH (00:45)
[2016-12-29] MEDS: Lactulose 10 Gm/15 mL 30mL UDC PO SCH ×5 (06:20→23:44)
[2016-12-29] MEDS: Albuterol Nebulizer 2.5mg/3mL HHN SCH ×4 (08:20→19:00)
[2016-12-29] MEDS: Ipratropium Neb 0.5 mg/2.5 mL UD HHN SCH ×4 (08:20→19:00)
[2016-12-29] MEDS: Pantoprazole 40 mg EC Tab PO SCH ×2 (08:28→17:03)
[2016-12-29] MEDS: Multivitamin Tab PO SCH (08:28)
[2016-12-29] MEDS: Aspirin 81mg Chewable Tab PO SCH (08:28)
[2016-12-29] MEDS: Fenofibrate, Micronized 134 mg Cap PO SCH (08:28)
[2016-12-29] MEDS: Benztropine 1 MG TAB PO SCH ×2 (08:28→17:04)
[2016-12-29] MEDS ORDERED: Levofloxacin 500mg/100mL 500 MG/100 ML BAG IV SCH (09:00)
[2016-12-29] MEDS ORDERED: DIVALPROEX SODIUM 1000 MG PO SCH (09:00)
--- NOTE | 2016-12-29 13:02 | Internal Medicine Prog Note ---
Internal Medicine Subjective - Subjective Patient seen and examined:: with staff, chart reviewed Patient is:: awake, verbal, interactive Per staff patient is:: no adverse event, eating well, confused Internal Medicine Objective - Physical Exam Vitals and I&O: Vital Signs Temp 98.0 F 12/29/16 01:00 Pulse 61 12/29/16 10:47 Resp 18 12/29/16 10:47 BP 149/71 12/29/16 08:27 Pulse Ox 92 12/29/16 10:47 Active Medications: Current Medications Acetaminophen (Tylenol) 650 mg PO Q4H PRN PRN Reason: PAIN OR FEVER >100.5 Stop: 02/27/17 01:43 Al Hydrox/Mg Hydrox/Simethicone (Maalox) 30 ml PO Q6HR PRN PRN Reason: GI DISTRESS Stop: 02/27/17 00:37 Albuterol Sulfate (Albuterol 2.5mg/3ml Neb Ud) 2.5 mg HHN QIDRT [facility] Stop: 02/27/17 06:59 Last Admin: 12/29/16 10:46 Dose: 2.5 mg Ascorbic Acid (Vitamin C) 500 mg PO DAILY [facility] Stop: 02/27/17 08:59 Last Admin: 12/29/16 08:28 Dose: 500 mg Aspirin (Aspirin Chewable) 81 mg PO DAILY [facility] Stop: 02/27/17 08:59 Last Admin: 12/29/16 08:28 Dose: 81 mg Atorvastatin Calcium (Lipitor) 20 mg PO HS [facility] PRN Reason: Protocol Stop: 02/27/17 20:59 Benztropine Mesylate (Cogentin) 1 mg PO BID [facility] Stop: 02/27/17 08:59 Last Admin: 12/29/16 08:28 Dose: 1 mg Buspirone HCl (Buspar) 10 mg PO BID [facility] PRN Reason: Protocol Stop: 02/27/17 08:59 Carbamazepine (Tegretol) 600 mg PO Q12HR [facility] PRN Reason: Protocol Stop: 02/27/17 08:59 Carbidopa/Levodopa (Sinemet 25mg-100 Mg) 1 tab PO TID [facility] Stop: 02/27/17 08:59 Last Admin: 12/29/16 08:28 Dose: 1 tab Divalproex Sodium (Depakote Dr) 500 mg PO HS [facility] PRN Reason: Protocol Stop: 02/27/17 20:59 Divalproex Sodium (Depakote Dr) 1,000 mg PO BID [facility] PRN Reason: Protocol Stop: 02/27/17 08:59 Docusate Sodium (Colace) 100 mg PO DAILY [facility] Stop: 02/27/17 08:59 Last Admin: 12/29/16 08:28 Dose: 100 mg Fenofibrate (Tricor) 134 mg PO DAILY [facility] Stop: 02/27/17 08:59 Last Admin: 12/29/16 08:28 Dose: 134 mg Guaifenesin (Robitussin) 200 mg PO Q4HR PRN PRN Reason: Cough or Congestion Stop: 02/27/17 00:37 Heparin Sodium (Porcine) (Heparin) 5,000 units SUBQ Q12HR [facility] Stop: 02/27/17 08:59 Last Admin: 12/29/16 08:27 Dose: 5,000 units Hydrocortisone (Hydrocortisone 2.5%) 1 appl TP BID [facility] Stop: 02/27/17 08:59 Last Admin: 12/29/16 09:26 Dose: Not Given Ipratropium [place] (Atrovent Neb 0.5mg/2.5ml) 0.5 mg HHN QIDRT [facility] Stop: 02/27/17 06:59 Last Admin: 12/29/16 10:46 Dose: 0.5 mg Lactulose (Cephulac) 40 gm PO Q6HR [facility] Stop: 02/27/17 05:59 Last Admin: 12/29/16 12:34 Dose: Not Given Losartan Potassium (Cozaar) 100 mg PO DAILY [facility] Stop: 02/27/17 08:59 Last Admin: 12/29/16 08:27 Dose: 100 mg Magnesium Hydroxide (Milk Of Magnesia) 30 ml PO HS PRN PRN Reason: Constipation Stop: 02/27/17 00:37 Multivitamins/Vitamin C (Theragran) 1 tab PO DAILY [facility] Stop: 02/27/17 08:59 Last Admin: 12/29/16 08:28 Dose: 1 tab Oxybutynin Chloride (Ditropan) 5 mg PO HS [facility] Stop: 02/27/17 20:59 Pantoprazole Sodium (Protonix) 40 mg PO BID [facility] Stop: 02/27/17 08:59 Last Admin: 02/24/17 08:28 Dose: 40 mg Quetiapine Fumarate (Seroquel) 50 mg PO BID [facility] PRN Reason: Protocol Stop: 02/27/17 08:59 General: demented HEENT: NC/AT, PERRLA Neck: Supple, No JVD Lungs: CTAB Cardiovascular: RRR, Normal S1, Normal S2 Abdomen: soft non-tender, globular Extremities: excoriation, contracture Neurological: no change - Procedures Procedures: Procedures Procedure Code Date GROUP PSYCHOTHERAPY 59548 12/06/15 GROUP PSYCHOTHERAPY GZHZZZZ 12/06/15 OTHER GROUP THERAPY 94.44 06/02/14 RECREATIONAL THERAPY 93.81 07/28/11 Internal Medicine Assmt/Plan - Assessment Assessment: COPD ACUTE BRONCHITIS GENERALIZED WEAKNESS LEUKOCYTOSIS ABDOMINAL PAIN HX STROKE DJD HYPERCHOLESTEREMIA SCHIZPHRENIA PARKINSONS - Plan Plan: cont on o2 bronchodilator fall precaution cont on sinemet usha rn
[2016-12-29] MEDS: Atorvastatin Calcium 10 MG TAB PO SCH (20:40)
[2016-12-29] MEDS ORDERED: DIVALPROEX SODIUM 500 MG PO SCH (21:00)
--- NOTE | 2016-12-29 21:07 | Psychosocial Evaluation ---
IDENTIFYING DATA: The patient is a 66-year-old male, resident of [facility]. JUSTIFICATION FOR HOSPITALIZATION: The patient is admitted here on a voluntary basis in view of his acute agitation and psychosis. CHIEF COMPLAINT: "I don't know. It is too hot in here." HISTORY OF PRESENT ILLNESS: This is one of multiple psychiatric hospitalizations for this patient who is a resident of [facility] and has been diagnosed to have schizoaffective disorder and is being followed up by Dr. Mabry on an outpatient basis. The patient is reported to have been screaming, yelling and has been getting easily upset. The patient is also reported to have been closing himself and has been becoming hypersexual and making inappropriate comments. The patient could not be contained at a lower level of care and hence patient has been referred over here for stabilization. PAST PSYCHIATRIC HISTORY: The patient had been hospitalized on multiple occasions. MEDICAL HISTORY: Physical examination is requested and done by Dr. Harden and is noted to be significant for degenerative joint disease, hypertension, seizure disorder, history of CVA. SOCIAL HISTORY: The patient is a resident of [facility]. SUBSTANCE ABUSE HISTORY: None. PHYSICAL OR SEXUAL ABUSE HISTORY: None. LEGAL PROBLEMS: None at this time. MENTAL EXAMINATION: The patient is a 66-year-old, looking his stated age, superficially cooperative. Eye contact is poor. Mood is noted to be irritable. Affect is constricted. Insight and judgment at this time are noted to be impaired. Impulse control seems to be poor. Coping skills are also noted to be poor. The patient is not making much sense. The patient has been screaming and yelling. The patient has paranoid delusions, but denies any command hallucinations. The patient at this time is not able to contract for safety. The patient is getting easily upset. Staff have reported that the patient has been taking his clothes off on the bed. The patient is alert and oriented to time, place and person. The patient's behavior is acutely danger to self and others. DIAGNOSTIC IMPRESSION: AXIS I: Schizoaffective disorder, psychotic at this time. AXIS II: None. AXIS III: As per Dr. Harden. IMMEDIATE TREATMENT PLAN: The patient is going to be continued on the ____ 600 mg twice a day and buspirone 10 mg twice a day and Seroquel 50 mg twice a day and patient is going to be closely monitored. Once stabilized, the patient is going to be discharged to self to be followed up on an outpatient basis. ESTIMATED LENGTH OF STAY: 5-7 days. DISCHARGE CRITERIA: When he no longer a threat to self or others and be able to cope up with the stress. [facility]# [id number]
[2016-12-30] MEDS: Lactulose 10 Gm/15 mL 30mL UDC PO SCH ×4 (05:28→23:31)
[2016-12-30] MEDS: Albuterol Nebulizer 2.5mg/3mL HHN SCH ×4 (07:22→20:08)
[2016-12-30] MEDS: Ipratropium Neb 0.5 mg/2.5 mL UD HHN SCH ×4 (07:22→20:08)
[2016-12-30] MEDS: Multivitamin Tab PO SCH (08:43)
[2016-12-30] MEDS: Aspirin 81mg Chewable Tab PO SCH (08:45)
[2016-12-30] MEDS: Benztropine 1 MG TAB PO SCH ×2 (08:45→17:06)
[2016-12-30] MEDS: Pantoprazole 40 mg EC Tab PO SCH ×2 (08:45→17:06)
[2016-12-30] MEDS: Fenofibrate, Micronized 134 mg Cap PO SCH (08:46)
--- NOTE | 2016-12-30 11:12 | Internal Medicine Prog Note ---
Internal Medicine Subjective - Subjective Service Date: 12/30/16 Patient seen and examined:: with staff Patient is:: awake Per staff patient is:: no adverse event Internal Medicine Objective - Physical Exam Vitals and I&O: Vital Signs Temp 98.0 F 12/29/16 17:22 Pulse 64 12/30/16 08:47 Resp 18 12/30/16 07:26 BP 134/79 12/30/16 08:47 Pulse Ox 95 12/30/16 07:26 Intake & Output 12/29/16 12/30/16 12/30/16 18:59 06:59 18:59 Intake Total 1000 Balance 1000 Intake: Oral 1000 Other: # Voids 3 # Bowel Movements 1 Active Medications: Current Medications Acetaminophen (Tylenol) 650 mg PO Q4H PRN PRN Reason: PAIN OR FEVER >100.5 Stop: 02/27/17 01:43 Last Admin: 12/30/16 09:20 Dose: 650 mg Al Hydrox/Mg Hydrox/Simethicone (Maalox) 30 ml PO Q6HR PRN PRN Reason: GI DISTRESS Stop: 02/27/17 00:37 Last Admin: 12/30/16 09:21 Dose: 30 ml Albuterol Sulfate (Albuterol 2.5mg/3ml Neb Ud) 2.5 mg HHN QIDRT [facility] Stop: 02/27/17 06:59 Last Admin: 12/30/16 07:22 Dose: 2.5 mg Ascorbic Acid (Vitamin C) 500 mg PO DAILY [facility] Stop: 02/27/17 08:59 Last Admin: 12/30/16 08:45 Dose: 500 mg Aspirin (Aspirin Chewable) 81 mg PO DAILY [facility] Stop: 02/27/17 08:59 Last Admin: 12/30/16 08:45 Dose: 81 mg Atorvastatin Calcium (Lipitor) 20 mg PO HS [facility] PRN Reason: Protocol Stop: 02/27/17 20:59 Last Admin: 12/29/16 20:40 Dose: 20 mg Benztropine Mesylate (Cogentin) 1 mg PO BID [facility] Stop: 02/27/17 08:59 Last Admin: 12/30/16 08:45 Dose: 1 mg Buspirone HCl (Buspar) 10 mg PO BID [facility] PRN Reason: Protocol Stop: 02/27/17 08:59 Last Admin: 12/30/16 08:45 Dose: 10 mg Carbamazepine (Tegretol) 600 mg PO Q12HR [facility] PRN Reason: Protocol Stop: 02/27/17 08:59 Last Admin: 12/30/16 08:46 Dose: 600 mg Carbidopa/Levodopa (Sinemet 25mg-100 Mg) 1 tab PO TID [facility] Stop: 02/27/17 08:59 Last Admin: 12/30/16 08:46 Dose: 1 tab Divalproex Sodium (Depakote Dr) 500 mg PO HS [facility] PRN Reason: Protocol Stop: 02/27/17 20:59 Divalproex Sodium (Depakote Dr) 1,000 mg PO BID [facility] PRN Reason: Protocol Stop: 02/27/17 08:59 Last Admin: 12/30/16 08:44 Dose: Not Given Docusate Sodium (Colace) 100 mg PO DAILY [facility] Stop: 02/27/17 08:59 Last Admin: 12/30/16 08:46 Dose: 100 mg Fenofibrate (Tricor) 134 mg PO DAILY [facility] Stop: 02/27/17 08:59 Last Admin: 12/30/16 08:46 Dose: 134 mg Guaifenesin (Robitussin) 200 mg PO Q4HR PRN PRN Reason: Cough or Congestion Stop: 02/27/17 00:37 Heparin Sodium (Porcine) (Heparin) 5,000 units SUBQ Q12HR [facility] Stop: 02/27/17 08:59 Last Admin: 12/30/16 08:48 Dose: 5,000 units Hydrocortisone (Hydrocortisone 2.5%) 1 appl TP BID [facility] Stop: 02/27/17 08:59 Last Admin: 12/30/16 08:49 Dose: Not Given Ipratropium [place] (Atrovent Neb 0.5mg/2.5ml) 0.5 mg HHN QIDRT [facility] Stop: 02/27/17 06:59 Last Admin: 12/30/16 07:22 Dose: 0.5 mg Lactulose (Cephulac) 40 gm PO Q6HR [facility] Stop: 02/27/17 05:59 Last Admin: 12/30/16 05:28 Dose: Not Given Levofloxacin (Levaquin) 500 mg PO Q24H [facility] Stop: 02/27/17 17:59 Last Admin: 02/24/17 17:04 Dose: 500 mg Losartan Potassium (Cozaar) 100 mg PO DAILY [facility] Stop: 02/27/17 08:59 Last Admin: 12/30/16 08:47 Dose: 100 mg Magnesium Hydroxide (Milk Of Magnesia) 30 ml PO HS PRN PRN Reason: Constipation Stop: 02/27/17 00:37 Multivitamins/Vitamin C (Theragran) 1 tab PO DAILY [facility] Stop: 02/27/17 08:59 Last Admin: 12/30/16 08:43 Dose: 1 tab Oxybutynin Chloride (Ditropan) 5 mg PO HS [facility] Stop: 02/27/17 20:59 Last Admin: 12/29/16 20:40 Dose: 5 mg Pantoprazole Sodium (Protonix) 40 mg PO BID [facility] Stop: 02/27/17 08:59 Last Admin: 12/30/16 08:45 Dose: 40 mg Quetiapine Fumarate (Seroquel) 50 mg PO BID [facility] PRN Reason: Protocol Stop: 02/27/17 08:59 Last Admin: 12/30/16 08:47 Dose: Not Given General: alert HEENT: NC/AT, PERRLA Neck: Supple Lungs: CTAB Cardiovascular: RRR, Normal S1, Normal S2, without murmur Abdomen: soft non-tender, non-distended, positive bowel sound Neurological: no change - Procedures Procedures: Procedures Procedure Code Date GROUP PSYCHOTHERAPY 61139 12/06/15 GROUP PSYCHOTHERAPY GZHZZZZ 12/06/15 OTHER GROUP THERAPY 94.44 06/02/14 RECREATIONAL THERAPY 93.81 07/28/11 Internal Medicine Assmt/Plan - Assessment Assessment: COPD ACUTE BRONCHITIS GENERALIZED WEAKNESS ABDOMINAL PAIN HX STROKE DJD HYPERCHOLESTEREMIA SCHIZPHRENIA PARKINSONS - Plan Plan: bronchodilators as needed supplemental o2 fall precautions cpm
--- NOTE | 2016-12-30 19:51 | Progress Notes ---
PSYCHIATRIC PROGRESS NOTE TIME PATIENT SEEN: 12 noon. SUBJECTIVE: Staff was spoken to. The patient is interviewed. Mood is noted to be irritable. Affect is constricted. Insight and judgment are noted to be still impaired. Impulse control is noted to be poor. The patient is currently on psychotropic medication and mood stabilizers. The patient is currently on Seroquel and Depakote. The patient has still been testing the limits and is sexually preoccupied. The patient has been trying to disrobe. The patient has no insight into his illness. Coping skills are noted to be very poor at this time. ASSESSMENT: The patient is still grossly psychotic. PLAN: To continue the patient with supportive therapy. I encouraged the patient to verbalize the concerns rather than to act out. The patient is not ready to be discharged to a lower level of care in view of his acute psychosis and mood swings. JOB# [id number]
[2016-12-30] MEDS: Atorvastatin Calcium 10 MG TAB PO SCH (20:35)
[2016-12-31] MEDS: Lactulose 10 Gm/15 mL 30mL UDC PO SCH ×3 (05:15→23:41)
[2016-12-31] MEDS: Albuterol Nebulizer 2.5mg/3mL HHN SCH ×4 (07:26→20:00)
[2016-12-31] MEDS: Ipratropium Neb 0.5 mg/2.5 mL UD HHN SCH ×4 (07:26→20:00)
[2016-12-31] MEDS: Pantoprazole 40 mg EC Tab PO SCH ×2 (08:46→16:31)
[2016-12-31] MEDS: Aspirin 81mg Chewable Tab PO SCH (08:46)
[2016-12-31] MEDS: Multivitamin Tab PO SCH (08:46)
[2016-12-31] MEDS: Benztropine 1 MG TAB PO SCH ×2 (08:46→16:31)
[2016-12-31] MEDS: Fenofibrate, Micronized 134 mg Cap PO SCH (08:46)
--- NOTE | 2016-12-31 12:23 | Internal Medicine Prog Note ---
Internal Medicine Subjective - Subjective Service Date: 12/31/16 Patient seen and examined:: with staff Patient is:: awake Per staff patient is:: no adverse event Internal Medicine Objective - Physical Exam Vitals and I&O: Vital Signs Temp 97.9 F 12/31/16 06:31 Pulse 75 12/31/16 11:29 Resp 18 12/31/16 11:29 BP 118/60 12/31/16 06:31 Pulse Ox 96 12/31/16 11:29 Intake & Output 12/30/16 12/31/16 12/31/16 18:59 06:59 18:59 Intake Total 900 0 Balance 900 0 Intake: Oral 900 0 Other: # Voids 4 4 # Bowel Movements 1 0 Active Medications: Current Medications Acetaminophen (Tylenol) 650 mg PO Q4H PRN PRN Reason: PAIN OR FEVER >100.5 Stop: 02/27/17 01:43 Last Admin: 12/30/16 09:20 Dose: 650 mg Al Hydrox/Mg Hydrox/Simethicone (Maalox) 30 ml PO Q6HR PRN PRN Reason: GI DISTRESS Stop: 02/27/17 00:37 Last Admin: 12/30/16 09:21 Dose: 30 ml Albuterol Sulfate (Albuterol 2.5mg/3ml Neb Ud) 2.5 mg HHN QIDRT [facility] Stop: 02/27/17 06:59 Last Admin: 12/31/16 11:24 Dose: 2.5 mg Ascorbic Acid (Vitamin C) 500 mg PO DAILY [facility] Stop: 02/27/17 08:59 Last Admin: 12/31/16 08:46 Dose: 500 mg Aspirin (Aspirin Chewable) 81 mg PO DAILY [facility] Stop: 02/27/17 08:59 Last Admin: 12/31/16 08:46 Dose: 81 mg Atorvastatin Calcium (Lipitor) 20 mg PO HS [facility] PRN Reason: Protocol Stop: 02/27/17 20:59 Last Admin: 12/30/16 20:35 Dose: 20 mg Benztropine Mesylate (Cogentin) 1 mg PO BID [facility] Stop: 02/27/17 08:59 Last Admin: 12/31/16 08:46 Dose: 1 mg Buspirone HCl (Buspar) 10 mg PO BID [facility] PRN Reason: Protocol Stop: 02/27/17 08:59 Last Admin: 12/31/16 08:45 Dose: 10 mg Carbamazepine (Tegretol) 600 mg PO Q12HR [facility] PRN Reason: Protocol Stop: 02/27/17 08:59 Last Admin: 12/31/16 08:46 Dose: 600 mg Carbidopa/Levodopa (Sinemet 25mg-100 Mg) 1 tab PO TID [facility] Stop: 02/27/17 08:59 Last Admin: 12/31/16 08:46 Dose: 1 tab Divalproex Sodium (Depakote Dr) 500 mg PO HS [facility] PRN Reason: Protocol Stop: 02/27/17 20:59 Last Admin: 12/30/16 20:36 Dose: 500 mg Divalproex Sodium (Depakote Dr) 1,000 mg PO BID [facility] PRN Reason: Protocol Stop: 02/27/17 08:59 Last Admin: 12/31/16 08:46 Dose: 1,000 mg Docusate Sodium (Colace) 100 mg PO DAILY [facility] Stop: 02/27/17 08:59 Last Admin: 12/31/16 08:46 Dose: 100 mg Fenofibrate (Tricor) 134 mg PO DAILY [facility] Stop: 02/27/17 08:59 Last Admin: 12/31/16 08:46 Dose: 134 mg Guaifenesin (Robitussin) 200 mg PO Q4HR PRN PRN Reason: Cough or Congestion Stop: 02/27/17 00:37 Heparin Sodium (Porcine) (Heparin) 5,000 units SUBQ Q12HR [facility] Stop: 02/27/17 08:59 Last Admin: 12/31/16 08:45 Dose: 5,000 units Hydrocortisone (Hydrocortisone 2.5%) 1 appl TP BID [facility] Stop: 02/27/17 08:59 Last Admin: 12/30/16 17:06 Dose: 1 appl Ipratropium [place] (Atrovent Neb 0.5mg/2.5ml) 0.5 mg HHN QIDRT [facility] Stop: 02/27/17 06:59 Last Admin: 12/31/16 11:24 Dose: 0.5 mg Lactulose (Cephulac) 40 gm PO Q6HR [facility] Stop: 02/27/17 05:59 Last Admin: 12/31/16 05:15 Dose: 40 gm Levofloxacin (Levaquin) 500 mg PO Q24H [facility] Stop: 02/27/17 17:59 Last Admin: 12/30/16 17:06 Dose: 500 mg Losartan Potassium (Cozaar) 100 mg PO DAILY [facility] Stop: 02/27/17 08:59 Last Admin: 12/30/16 08:47 Dose: 100 mg Magnesium Hydroxide (Milk Of Magnesia) 30 ml PO HS PRN PRN Reason: Constipation Stop: 02/27/17 00:37 Multivitamins/Vitamin C (Theragran) 1 tab PO DAILY [facility] Stop: 02/27/17 08:59 Last Admin: 12/31/16 08:46 Dose: 1 tab Oxybutynin Chloride (Ditropan) 5 mg PO HS [facility] Stop: 02/27/17 20:59 Last Admin: 12/30/16 20:36 Dose: 5 mg Pantoprazole Sodium (Protonix) 40 mg PO BID [facility] Stop: 02/27/17 08:59 Last Admin: 12/31/16 08:46 Dose: 40 mg Quetiapine Fumarate (Seroquel) 50 mg PO BID [facility] PRN Reason: Protocol Stop: 02/27/17 08:59 Last Admin: 12/31/16 08:46 Dose: 50 mg General: alert HEENT: NC/AT, PERRLA Neck: Supple Lungs: CTAB Cardiovascular: RRR, Normal S1, Normal S2, without murmur Abdomen: soft non-tender, non-distended Extremities: clear - Procedures Procedures: Procedures Procedure Code Date GROUP PSYCHOTHERAPY 97343 12/06/15 GROUP PSYCHOTHERAPY GZHZZZZ 12/06/15 OTHER GROUP THERAPY 94.44 06/02/14 RECREATIONAL THERAPY 93.81 07/28/11 Internal Medicine Assmt/Plan - Assessment Assessment: COPD ACUTE BRONCHITIS GENERALIZED WEAKNESS ABDOMINAL PAIN HX STROKE DJD HYPERCHOLESTEREMIA SCHIZPHRENIA PARKINSONS - Plan Plan: bronchodilators as needed supplemental o2 fall precautions cpm
[2016-12-31] MEDS: Atorvastatin Calcium 10 MG TAB PO SCH (20:26)
--- NOTE | 2017-01-01 00:02 | Progress Notes ---
PSYCHIATRIC PROGRESS NOTE TIME PATIENT SEEN: 12 noon. SUBJECTIVE: Staff was spoken to. The patient is interviewed. Mood is noted to be irritable. Affect is constricted. Mood is noted to be still labile and the patient is reported to be sexually preoccupied and has been asking to kiss one of the staff nurse. The patient has no insight into his illness. ____ are noted to be very poor. The patient is testing the limits. No side effects to the medications are noted. The patient, however, has been having difficult time to cope with the stress. ASSESSMENT: The patient is still grossly psychotic. PLAN: To continue the patient with the current medications. I encouraged the patient to verbalize the concerns rather than to act out. The patient is not ready to be discharged to a lower level of care in view of his impulsive behavior. Follow the patient with supportive therapy. Staff are going to be encouraged to medicate the patient appropriately if he continues to be presenting with these inappropriate behaviors. JOB# [id number]
[2017-01-01] MEDS: Lactulose 10 Gm/15 mL 30mL UDC PO SCH ×4 (05:33→17:06)
[2017-01-01] MEDS: Ipratropium Neb 0.5 mg/2.5 mL UD HHN SCH ×4 (07:25→18:53)
[2017-01-01] MEDS: Albuterol Nebulizer 2.5mg/3mL HHN SCH ×4 (07:25→18:53)
[2017-01-01] MEDS: Fenofibrate, Micronized 134 mg Cap PO SCH (08:53)
[2017-01-01] MEDS: Aspirin 81mg Chewable Tab PO SCH (08:53)
[2017-01-01] MEDS: Benztropine 1 MG TAB PO SCH ×2 (08:53→17:06)
[2017-01-01] MEDS: Multivitamin Tab PO SCH (08:53)
[2017-01-01] MEDS: Pantoprazole 40 mg EC Tab PO SCH ×2 (08:53→17:06)
--- NOTE | 2017-01-01 13:19 | Internal Medicine Prog Note ---
Internal Medicine Subjective - Subjective Service Date: 01/01/17 Patient seen and examined:: with staff Patient is:: awake Per staff patient is:: no adverse event Internal Medicine Objective - Physical Exam Vitals and I&O: Vital Signs Temp 97.4 F 01/01/17 06:25 Pulse 72 01/01/17 11:12 Resp 20 01/01/17 11:12 BP 124/66 01/01/17 06:25 Pulse Ox 97 01/01/17 11:12 Intake & Output 12/31/16 01/01/17 01/01/17 18:59 06:59 18:59 Intake Total 900 120 Balance 900 120 Intake: Oral 900 120 Other: # Voids 4 3 # Bowel Movements 1 Active Medications: Current Medications Acetaminophen (Tylenol) 650 mg PO Q4H PRN PRN Reason: PAIN OR FEVER >100.5 Stop: 02/27/17 01:43 Last Admin: 12/30/16 09:20 Dose: 650 mg Al Hydrox/Mg Hydrox/Simethicone (Maalox) 30 ml PO Q6HR PRN PRN Reason: GI DISTRESS Stop: 02/27/17 00:37 Last Admin: 12/30/16 09:21 Dose: 30 ml Albuterol Sulfate (Albuterol 2.5mg/3ml Neb Ud) 2.5 mg HHN QIDRT [facility] Stop: 02/27/17 06:59 Last Admin: 01/01/17 11:09 Dose: 2.5 mg Ascorbic Acid (Vitamin C) 500 mg PO DAILY [facility] Stop: 02/27/17 08:59 Last Admin: 01/01/17 08:53 Dose: 500 mg Aspirin (Aspirin Chewable) 81 mg PO DAILY [facility] Stop: 02/27/17 08:59 Last Admin: 01/01/17 08:53 Dose: 81 mg Atorvastatin Calcium (Lipitor) 20 mg PO HS DARA PRN Reason: Protocol Stop: 02/27/17 20:59 Last Admin: 12/31/16 20:26 Dose: 20 mg Benztropine Mesylate (Cogentin) 1 mg PO BID [facility] Stop: 02/27/17 08:59 Last Admin: 01/01/17 08:53 Dose: 1 mg Buspirone HCl (Buspar) 10 mg PO BID [facility] PRN Reason: Protocol Stop: 02/27/17 08:59 Last Admin: 01/01/17 08:53 Dose: 10 mg Carbamazepine (Tegretol) 600 mg PO Q12HR DARA PRN Reason: Protocol Stop: 02/27/17 08:59 Last Admin: 01/01/17 08:53 Dose: 600 mg Carbidopa/Levodopa (Sinemet 25mg-100 Mg) 1 tab PO TID DARA Stop: 02/27/17 08:59 Last Admin: 01/01/17 08:53 Dose: 1 tab Divalproex Sodium (Depakote Dr) 500 mg PO HS DARA PRN Reason: Protocol Stop: 02/27/17 20:59 Last Admin: 12/31/16 20:26 Dose: 500 mg Divalproex Sodium (Depakote Dr) 1,000 mg PO BID DARA PRN Reason: Protocol Stop: 02/27/17 08:59 Last Admin: 01/01/17 08:53 Dose: 1,000 mg Docusate Sodium (Colace) 100 mg PO DAILY [facility] Stop: 02/27/17 08:59 Last Admin: 01/01/17 08:53 Dose: 100 mg Fenofibrate (Tricor) 134 mg PO DAILY [facility] Stop: 02/27/17 08:59 Last Admin: 01/01/17 08:53 Dose: 134 mg Guaifenesin (Robitussin) 200 mg PO Q4HR PRN PRN Reason: Cough or Congestion Stop: 02/27/17 00:37 Heparin Sodium (Porcine) (Heparin) 5,000 units SUBQ Q12HR [facility] Stop: 02/27/17 08:59 Last Admin: 01/01/17 08:52 Dose: 5,000 units Hydrocortisone (Hydrocortisone 2.5%) 1 appl TP BID [facility]ARA Stop: 02/27/17 08:59 Last Admin: 01/01/17 08:52 Dose: 1 appl Ipratropium [place] (Atrovent Neb 0.5mg/2.5ml) 0.5 mg HHN QIDRT [facility] Stop: 02/27/17 06:59 Last Admin: 01/01/17 11:09 Dose: 0.5 mg Lactulose (Cephulac) 40 gm PO Q6HR [facility] Stop: 02/27/17 05:59 Last Admin: 01/01/17 10:20 Dose: Not Given Levofloxacin (Levaquin) 500 mg PO Q24H [facility] Stop: 02/27/17 17:59 Last Admin: 12/31/16 17:04 Dose: 500 mg Losartan Potassium (Cozaar) 100 mg PO DAILY [facility] Stop: 02/27/17 08:59 Last Admin: 01/01/17 10:20 Dose: Not Given Magnesium Hydroxide (Milk Of Magnesia) 30 ml PO HS PRN PRN Reason: Constipation Stop: 02/27/17 00:37 Multivitamins/Vitamin C (Theragran) 1 tab PO DAILY [facility] Stop: 02/27/17 08:59 Last Admin: 01/01/17 08:53 Dose: 1 tab Oxybutynin Chloride (Ditropan) 5 mg PO HS [facility]ARA Stop: 02/27/17 20:59 Last Admin: 12/31/16 20:26 Dose: 5 mg Pantoprazole Sodium (Protonix) 40 mg PO BID [facility] Stop: 02/27/17 08:59 Last Admin: 01/01/17 08:53 Dose: 40 mg Quetiapine Fumarate (Seroquel) 50 mg PO BID [facility]ARA PRN Reason: Protocol Stop: 02/27/17 08:59 Last Admin: 01/01/17 08:54 Dose: 50 mg General: alert HEENT: NC/AT, PERRLA Neck: Supple Lungs: CTAB Cardiovascular: RRR, Normal S1, Normal S2, without murmur Abdomen: soft non-tender, non-distended, positive bowel sound - Procedures Procedures: Procedures Procedure Code Date GROUP PSYCHOTHERAPY 00598 12/06/15 GROUP PSYCHOTHERAPY GZHZZZZ 12/06/15 OTHER GROUP THERAPY 94.44 06/02/14 RECREATIONAL THERAPY 93.81 07/28/11 Internal Medicine Assmt/Plan - Assessment Assessment: COPD ACUTE BRONCHITIS GENERALIZED WEAKNESS ABDOMINAL PAIN HX STROKE DJD HYPERCHOLESTEREMIA SCHIZPHRENIA PARKINSONS - Plan Plan: bronchodilators as needed supplemental o2 fall precautions cpm
[2017-01-01] MEDS: Atorvastatin Calcium 10 MG TAB PO SCH (21:17)
--- NOTE | 2017-01-01 22:38 | Progress Notes ---
SUBJECTIVE: The patient was seen, remains irritable, angry, still high perceptual towards female staff, patient remains inappropriate; however, he is taking his medications. He does not appear to have any side effects. His insight is still poor, judgment remains impaired. ASSESSMENT: The patient is still in psychotic phase. PLAN: Continue stabilization. Continue medication management. Continue Seroquel. JOB# [id number]
--- NOTE | 2017-01-01 22:48 | Admit Criteria Form ---
Admit Criteria Forms - Admit Criteria Diagnosis: PSYCHIATRIC DISORDERS Clinical Indications for Inpatient Care (Place 'X' for any and all applicable criteria): Ongoing inpatient care may be needed for ANY ONE of the following(1)(2)(3)(4)(6) (7)(8): [X]I. Danger to self or others not manageable at lower level of care. [ ]II. Grave disability (eg, inability to perform self care necessary at lower level of care) [ ]III. Agitation or inappropriate behavior interfering with care for primary condition (eg, attempting to discontinue lines or drains prematurely, unable to cooperate with respiratory care) [ ]IV. Severe disability or disorder indicated by ALL of the following: [ ]a) Severe behavioral health disorder-related symptoms or condition indicated by ANY ONE of the following: [ ]i) Severe problem with cognition, memory, judgment, or impulse control [ ]ii) Severe clinical manifestations (eg, hallucinations, delusions, other acute psychotic symptoms, [place], extreme agitation or anxiety) [ ]b) Patient management at lower level of care is not feasible until acute intervention or modification is initiated. Extended stay beyond goal length of stay for the primary condition may be indicated when ANY ONE of the following is present: (1)(2)(3)(4): [ ]a) Patient is a danger to self or others and not manageable at lower level of care. [ ]b) Behavior crisis management, including physical or chemical restraints, is required and is not available at a lower level of care. [ ]c) Behavioral symptoms (e.g., agitation, somnolence, inappropriate behavior) are present, and are not manageable at a lower level of care. [ ]d) Patient cannot understand follow-up treatment and crisis plan. [ ]e) Provider and supports are not sufficiently available at lower level of care. [ ]f) Patient cannot participate (e.g., verify absence of plan for harm) and is in needed of monitoring. The original [facility] content created by [facility] [employer] has been revised. The portions of the content which have been revised are identified through the use of italic text or in bold, and [facility] [employer] has neither reviewed nor approved the modified material. All other unmodified content is copyright [facility] [employer]. Please see references footnoted in the original [facility] edition 2016 Admit Criteria Met?: Yes
[2017-01-02] MEDS: Lactulose 10 Gm/15 mL 30mL UDC PO SCH ×4 (01:50→23:02)
[2017-01-02] MEDS: Albuterol Nebulizer 2.5mg/3mL HHN SCH ×4 (07:03→19:35)
[2017-01-02] MEDS: Ipratropium Neb 0.5 mg/2.5 mL UD HHN SCH ×4 (07:03→19:35)
[2017-01-02] MEDS: Fenofibrate, Micronized 134 mg Cap PO SCH (09:03)
[2017-01-02] MEDS: Pantoprazole 40 mg EC Tab PO SCH ×2 (09:03→17:08)
[2017-01-02] MEDS: Benztropine 1 MG TAB PO SCH ×2 (09:03→17:08)
[2017-01-02] MEDS: Multivitamin Tab PO SCH (09:03)
[2017-01-02] MEDS: Aspirin 81mg Chewable Tab PO SCH (09:03)
--- NOTE | 2017-01-02 13:35 | Internal Medicine Prog Note ---
Internal Medicine Subjective - Subjective Service Date: 01/02/17 Patient seen and examined:: with staff Patient is:: awake Per staff patient is:: no adverse event Internal Medicine Objective - Physical Exam Vitals and I&O: Vital Signs Temp 97.9 F 01/02/17 06:46 Pulse 70 01/02/17 10:57 Resp 20 01/02/17 10:57 BP 117/58 01/02/17 09:04 Pulse Ox 95 01/02/17 10:57 Intake & Output 01/01/17 01/02/17 01/02/17 18:59 06:59 18:59 Intake Total 1200 120 Balance 1200 120 Intake: Oral 1200 120 Other: # Voids 4 3 # Bowel Movements 1 0 Active Medications: Current Medications Acetaminophen (Tylenol) 650 mg PO Q4H PRN PRN Reason: PAIN OR FEVER >100.5 Stop: 02/27/17 01:43 Last Admin: 12/30/16 09:20 Dose: 650 mg Al Hydrox/Mg Hydrox/Simethicone (Maalox) 30 ml PO Q6HR PRN PRN Reason: GI DISTRESS Stop: 02/27/17 00:37 Last Admin: 12/30/16 09:21 Dose: 30 ml Albuterol Sulfate (Albuterol 2.5mg/3ml Neb Ud) 2.5 mg HHN QIDRT [facility] Stop: 02/27/17 06:59 Last Admin: 01/02/17 10:56 Dose: 2.5 mg Ascorbic Acid (Vitamin C) 500 mg PO DAILY [facility] Stop: 02/27/17 08:59 Last Admin: 01/02/17 09:03 Dose: 500 mg Aspirin (Aspirin Chewable) 81 mg PO DAILY [facility] Stop: 02/27/17 08:59 Last Admin: 01/02/17 09:03 Dose: 81 mg Atorvastatin Calcium (Lipitor) 20 mg PO HS DARA PRN Reason: Protocol Stop: 02/27/17 20:59 Last Admin: 01/01/17 21:17 Dose: 20 mg Benztropine Mesylate (Cogentin) 1 mg PO BID [facility] Stop: 02/27/17 08:59 Last Admin: 01/02/17 09:03 Dose: 1 mg Buspirone HCl (Buspar) 10 mg PO BID [facility]ARA PRN Reason: Protocol Stop: 02/27/17 08:59 Last Admin: 01/02/17 09:03 Dose: 10 mg Carbamazepine (Tegretol) 600 mg PO Q12HR [facility] PRN Reason: Protocol Stop: 02/27/17 08:59 Last Admin: 01/02/17 09:03 Dose: 600 mg Carbidopa/Levodopa (Sinemet 25mg-100 Mg) 1 tab PO TID [facility] Stop: 02/27/17 08:59 Last Admin: 01/02/17 09:03 Dose: 1 tab Divalproex Sodium (Depakote Dr) 500 mg PO HS [facility]ARA PRN Reason: Protocol Stop: 02/27/17 20:59 Last Admin: 01/01/17 21:18 Dose: 500 mg Divalproex Sodium (Depakote Dr) 1,000 mg PO BID [facility] PRN Reason: Protocol Stop: 02/27/17 08:59 Last Admin: 01/02/17 09:03 Dose: 1,000 mg Docusate Sodium (Colace) 100 mg PO DAILY [facility] Stop: 02/27/17 08:59 Last Admin: 01/02/17 09:03 Dose: 100 mg Fenofibrate (Tricor) 134 mg PO DAILY [facility] Stop: 02/27/17 08:59 Last Admin: 01/02/17 09:03 Dose: 134 mg Guaifenesin (Robitussin) 200 mg PO Q4HR PRN PRN Reason: Cough or Congestion Stop: 02/27/17 00:37 Heparin Sodium (Porcine) (Heparin) 5,000 units SUBQ Q12HR [facility] Stop: 02/27/17 08:59 Last Admin: 01/02/17 09:02 Dose: 5,000 units Hydrocortisone (Hydrocortisone 2.5%) 1 appl TP BID [facility] Stop: 02/27/17 08:59 Last Admin: 01/02/17 09:04 Dose: 1 appl Ipratropium [place] (Atrovent Neb 0.5mg/2.5ml) 0.5 mg HHN QIDRT [facility] Stop: 02/27/17 06:59 Last Admin: 01/02/17 10:56 Dose: 0.5 mg Lactulose (Cephulac) 40 gm PO Q6HR [facility] Stop: 02/27/17 05:59 Last Admin: 01/02/17 06:05 Dose: 40 gm Levofloxacin (Levaquin) 500 mg PO Q24H [facility] Stop: 02/27/17 17:59 Last Admin: 01/01/17 17:06 Dose: 500 mg Losartan Potassium (Cozaar) 100 mg PO DAILY [facility] Stop: 02/27/17 08:59 Last Admin: 01/02/17 09:04 Dose: Not Given Magnesium Hydroxide (Milk Of Magnesia) 30 ml PO HS PRN PRN Reason: Constipation Stop: 02/27/17 00:37 Multivitamins/Vitamin C (Theragran) 1 tab PO DAILY [facility] Stop: 02/27/17 08:59 Last Admin: 01/02/17 09:03 Dose: 1 tab Oxybutynin Chloride (Ditropan) 5 mg PO HS [facility] Stop: 02/27/17 20:59 Last Admin: 01/01/17 21:23 Dose: 5 mg Pantoprazole Sodium (Protonix) 40 mg PO BID [facility] Stop: 02/27/17 08:59 Last Admin: 01/02/17 09:03 Dose: 40 mg Quetiapine Fumarate (Seroquel) 50 mg PO BID [facility]ARA PRN Reason: Protocol Stop: 02/27/17 08:59 Last Admin: 01/02/17 09:03 Dose: 50 mg General: alert HEENT: NC/AT, PERRLA Neck: Supple Lungs: CTAB Cardiovascular: RRR, Normal S1, Normal S2, without murmur Abdomen: soft non-tender - Procedures Procedures: Procedures Procedure Code Date GROUP PSYCHOTHERAPY 44236 12/06/15 GROUP PSYCHOTHERAPY GZHZZZZ 12/06/15 OTHER GROUP THERAPY 94.44 06/02/14 RECREATIONAL THERAPY 93.81 07/28/11 Internal Medicine Assmt/Plan - Assessment Assessment: COPD ACUTE BRONCHITIS GENERALIZED WEAKNESS ABDOMINAL PAIN HX STROKE DJD HYPERCHOLESTEREMIA SCHIZPHRENIA PARKINSONS - Plan Plan: bronchodilators as needed supplemental o2 fall precautions cpm
[2017-01-02] MEDS: Atorvastatin Calcium 10 MG TAB PO SCH (20:19)
--- NOTE | 2017-01-03 02:22 | Progress Notes ---
SUBJECTIVE: The patient was seen and discussed with staff. Still irritable at times, easily agitated, still showing hypersexual behaviors towards female staff, making obscene gestures or trying to touch female staff, trying to masturbate at times. On the other hand, he is taking his medications. Sleep has been fair. The patient's insight is still limited. Judgment remains impaired. ASSESSMENT: The patient is still highly disorganized. PLAN: We will continue stabilization. Continue medication management. Continue supportive measures. JOB# [id number]
[2017-01-03] MEDS: Lactulose 10 Gm/15 mL 30mL UDC PO SCH ×3 (06:12→17:08)
[2017-01-03] MEDS: Albuterol Nebulizer 2.5mg/3mL HHN SCH ×4 (07:25→20:11)
[2017-01-03] MEDS: Ipratropium Neb 0.5 mg/2.5 mL UD HHN SCH ×4 (07:25→20:10)
[2017-01-03] MEDS: Benztropine 1 MG TAB PO SCH ×2 (09:54→16:54)
[2017-01-03] MEDS: Fenofibrate, Micronized 134 mg Cap PO SCH (09:54)
[2017-01-03] MEDS: Multivitamin Tab PO SCH (09:54)
[2017-01-03] MEDS: Aspirin 81mg Chewable Tab PO SCH (09:55)
[2017-01-03] MEDS: Pantoprazole 40 mg EC Tab PO SCH ×2 (09:56→16:56)
--- NOTE | 2017-01-03 12:26 | Internal Medicine Prog Note ---
Internal Medicine Subjective - Subjective Service Date: 01/03/17 Patient seen and examined:: with staff Patient is:: awake Per staff patient is:: no adverse event Internal Medicine Objective - Physical Exam Vitals and I&O: Vital Signs Temp 98.0 F 01/03/17 06:49 Pulse 65 01/03/17 11:43 Resp 18 01/03/17 11:43 BP 114/70 01/03/17 09:56 Pulse Ox 97 01/03/17 11:43 Intake & Output 01/02/17 01/03/17 01/03/17 18:59 06:59 18:59 Intake Total 1300 240 Balance 1300 240 Intake: Oral 1300 240 Other: # Voids 7 2 # Bowel Movements 1 0 Active Medications: Current Medications Acetaminophen (Tylenol) 650 mg PO Q4H PRN PRN Reason: PAIN OR FEVER >100.5 Stop: 02/27/17 01:43 Last Admin: 12/30/16 09:20 Dose: 650 mg Al Hydrox/Mg Hydrox/Simethicone (Maalox) 30 ml PO Q6HR PRN PRN Reason: GI DISTRESS Stop: 02/27/17 00:37 Last Admin: 12/30/16 09:21 Dose: 30 ml Albuterol Sulfate (Albuterol 2.5mg/3ml Neb Ud) 2.5 mg HHN QIDRT [facility] Stop: 02/27/17 06:59 Last Admin: 01/03/17 11:40 Dose: 2.5 mg Ascorbic Acid (Vitamin C) 500 mg PO DAILY [facility] Stop: 02/27/17 08:59 Last Admin: 01/03/17 09:56 Dose: 500 mg Aspirin (Aspirin Chewable) 81 mg PO DAILY [facility] Stop: 02/27/17 08:59 Last Admin: 01/03/17 09:55 Dose: 81 mg Atorvastatin Calcium (Lipitor) 20 mg PO HS DARA PRN Reason: Protocol Stop: 02/27/17 20:59 Last Admin: 01/02/17 20:19 Dose: 20 mg Benztropine Mesylate (Cogentin) 1 mg PO BID [facility] Stop: 02/27/17 08:59 Last Admin: 01/03/17 09:54 Dose: 1 mg Buspirone HCl (Buspar) 10 mg PO BID [facility]ARA PRN Reason: Protocol Stop: 02/27/17 08:59 Last Admin: 01/03/17 10:42 Dose: 10 mg Carbamazepine (Tegretol) 600 mg PO Q12HR [facility]ARA PRN Reason: Protocol Stop: 02/27/17 08:59 Last Admin: 01/03/17 09:56 Dose: 600 mg Carbidopa/Levodopa (Sinemet 25mg-100 Mg) 1 tab PO TID [facility] Stop: 02/27/17 08:59 Last Admin: 01/03/17 09:56 Dose: 1 tab Divalproex Sodium (Depakote Dr) 500 mg PO HS DARA PRN Reason: Protocol Stop: 02/27/17 20:59 Last Admin: 01/02/17 20:19 Dose: 500 mg Divalproex Sodium (Depakote Dr) 1,000 mg PO BID [facility] PRN Reason: Protocol Stop: 02/27/17 08:59 Last Admin: 01/03/17 09:57 Dose: 1,000 mg Docusate Sodium (Colace) 100 mg PO DAILY [facility] Stop: 02/27/17 08:59 Last Admin: 01/03/17 09:54 Dose: 100 mg Fenofibrate (Tricor) 134 mg PO DAILY [facility] Stop: 02/27/17 08:59 Last Admin: 01/03/17 09:54 Dose: 134 mg Guaifenesin (Robitussin) 200 mg PO Q4HR PRN PRN Reason: Cough or Congestion Stop: 02/27/17 00:37 Heparin Sodium (Porcine) (Heparin) 5,000 units SUBQ Q12HR [facility] Stop: 02/27/17 08:59 Last Admin: 01/03/17 09:56 Dose: 5,000 units Hydrocortisone (Hydrocortisone 2.5%) 1 appl TP BID [facility] Stop: 02/27/17 08:59 Last Admin: 01/03/17 09:56 Dose: 1 appl Ipratropium [place] (Atrovent Neb 0.5mg/2.5ml) 0.5 mg HHN QIDRT [facility] Stop: 02/27/17 06:59 Last Admin: 01/03/17 11:40 Dose: 0.5 mg Lactulose (Cephulac) 40 gm PO Q6HR [facility] Stop: 02/27/17 05:59 Last Admin: 01/03/17 06:12 Dose: 40 gm Levofloxacin (Levaquin) 500 mg PO Q24H [facility] Stop: 02/27/17 17:59 Last Admin: 01/02/17 17:08 Dose: 500 mg Losartan Potassium (Cozaar) 100 mg PO DAILY [facility] Stop: 02/27/17 08:59 Last Admin: 01/03/17 09:56 Dose: Not Given Magnesium Hydroxide (Milk Of Magnesia) 30 ml PO HS PRN PRN Reason: Constipation Stop: 02/27/17 00:37 Multivitamins/Vitamin C (Theragran) 1 tab PO DAILY [facility] Stop: 02/27/17 08:59 Last Admin: 01/03/17 09:54 Dose: 1 tab Oxybutynin Chloride (Ditropan) 5 mg PO HS [facility] Stop: 02/27/17 20:59 Last Admin: 01/02/17 20:20 Dose: 5 mg Pantoprazole Sodium (Protonix) 40 mg PO BID [facility] Stop: 02/27/17 08:59 Last Admin: 01/03/17 09:56 Dose: 40 mg Quetiapine Fumarate (Seroquel) 50 mg PO BID [facility]ARA PRN Reason: Protocol Stop: 02/27/17 08:59 Last Admin: 01/03/17 12:02 Dose: Not Given General: alert HEENT: NC/AT, PERRLA Neck: Supple Lungs: CTAB Cardiovascular: RRR, Normal S1, Normal S2, without murmur Abdomen: soft non-tender, non-distended - Procedures Procedures: Procedures Procedure Code Date GROUP PSYCHOTHERAPY 34951 12/06/15 GROUP PSYCHOTHERAPY GZHZZZZ 12/06/15 OTHER GROUP THERAPY 94.44 06/02/14 RECREATIONAL THERAPY 93.81 07/28/11 Internal Medicine Assmt/Plan - Assessment Assessment: COPD ACUTE BRONCHITIS GENERALIZED WEAKNESS ABDOMINAL PAIN HX STROKE DJD HYPERCHOLESTEREMIA SCHIZPHRENIA PARKINSONS - Plan Plan: bronchodilators as needed supplemental o2 fall precautions cpm Nutritional Asmnt/Malnutr-PDOC - Dietary Evaluation Malnutrition Findings (Please click <Entered> for more info): Nutritional Asmnt/Malnutrition Start: 01/02/17 17: 09 Text: Status: Complete Freq: Document 01/02/17 17:09 CRISTEL (Rec: 01/02/17 17:11 CRISTEL [id number]) Nutritional Asmnt/Malnutrition Patient General Information Nutritional Screening Moderate Risk Screening Diagnosis Psychosis Pertinent Medical Hx/Surgical Hx COPD, acute bronchitis, generalized weakness, leuokcytosis, abdominal pain, hx stroke, DJD, hypercholesteremia, schizophrenia, parkinsons Subjective Information 66 year old male. Pt was participating in group session durring visit. Spoke with nursing staff and [employer]YSICIAN [employer], pt is a questionable/poor historian, often goes off topic and is verbally inappropriate, however no nutritional concerns at this time. Avg PO intake 100% of meals, meeting nutritional needs. Current Diet Order/ Nutrition Support [facility] soft chopped Pertinent Medications Maalox, Vitamin C, Lipitor, Colace, Cephylac, MOM, Theragran, Protonix, Seroquel Pertinent Labs No current labs Nutritional Hx/Data Height 6 ft Height (Calculated Centimeters) 182.9 Current Weight (lbs) 220 lb Weight (Calculated Kilograms) 99.8 Weight (Calculated Grams) 10633.3 [place] Body Weight 178lb Weight Status Overweight GI Symptoms Food Allergies No Cultural/Ethnic/Confucianism Belief Unknown. Usual diet at home Unknown. Skin Integrity/Comment: Jani 18. Skin intact. Current %PO Good (75-100%) Estimated Nutritional Goals Calories/Kcals/Kg IBW 178lb / 80.9kg 25-30kcal/ kg Kcals Calculated 2023-2427kcal Protein g/kg: IBW 80.9kg 1g/kg Protein Calculated 81g Fluid: ml 2022-2427ml (1ml/kcal) Nutritional Problem 1. Problem Problem No nutritional problems at this time. Intervention/Recommendation Comments 1. Continue with [facility] soft chopped diet. Current PO intake is adequate. Expected Outcomes/Goals Expected Outcomes/Goals 1. PO intake continue to meet at least 75% of estimated nutritional needs.
[2017-01-03 12:57] LABS: PROTHROMBIN TIME (TEST) 10.4 SECONDS (9.5-11.5)
[2017-01-03] MEDS: Atorvastatin Calcium 10 MG TAB PO SCH (20:44)
[2017-01-04] MEDS: Lactulose 10 Gm/15 mL 30mL UDC PO SCH ×4 (00:42→20:18)
--- NOTE | 2017-01-04 02:08 | Progress Notes ---
SUBJECTIVE: The patient was seen, discussed with staff, and chart reviewed. Remains compliant with his medications, does not appear to have any side effects. No sedation or EPS. The patient, however, continues to have some inappropriate sexual behavior, hypersexual with female staff, attempted to touch other patients too. The patient is compliant with Depakote and Seroquel. ASSESSMENT: The patient continues to lack capacity for self-care and he continues to require hospitalization. PLAN: We will monitor closely. Continue supportive measures. [facility]# [id number]
[2017-01-04] MEDS: Albuterol Nebulizer 2.5mg/3mL HHN SCH ×4 (08:34→19:14)
[2017-01-04] MEDS: Ipratropium Neb 0.5 mg/2.5 mL UD HHN SCH ×4 (08:34→19:14)
[2017-01-04] MEDS: Multivitamin Tab PO SCH (09:24)
[2017-01-04] MEDS: Pantoprazole 40 mg EC Tab PO SCH ×2 (09:24→18:43)
[2017-01-04] MEDS: Fenofibrate, Micronized 134 mg Cap PO SCH (09:24)
[2017-01-04] MEDS: Benztropine 1 MG TAB PO SCH ×2 (09:24→18:43)
[2017-01-04] MEDS: Aspirin 81mg Chewable Tab PO SCH (09:24)
--- NOTE | 2017-01-04 12:21 | Internal Medicine Prog Note ---
Internal Medicine Subjective - Subjective Patient seen and examined:: with staff, chart reviewed Patient is:: awake, verbal, interactive Patient Complaints of:: congestion Per staff patient is:: no adverse event, confused Internal Medicine Objective - Results Recent Labs: Laboratory Last Values PT 10.4 SECONDS (9.5-11.5) 01/03/17 12:20 INR 1.00 (0.5-1.4) 01/03/17 12:20 PTT (Actin FS) 25.1 SECONDS (26.0-38.0) L 01/03/17 12:20 Ammonia 136 umol/L (16-53) H 01/03/17 15:06 - Physical Exam Vitals and I&O: Vital Signs Temp 98 F 01/03/17 17:53 Pulse 65 01/04/17 11:32 Resp 18 01/04/17 11:32 BP 107/75 01/04/17 11:07 Pulse Ox 97 01/04/17 11:32 Intake & Output 01/03/17 01/04/17 01/04/17 18:59 06:59 18:59 Intake Total 950 120 Balance 950 120 Intake: Oral 950 120 Other: # Voids 3 3 # Bowel Movements 1 Active Medications: Current Medications Acetaminophen (Tylenol) 650 mg PO Q4H PRN PRN Reason: PAIN OR FEVER >100.5 Stop: 02/27/17 01:43 Last Admin: 12/30/16 09:20 Dose: 650 mg Al Hydrox/Mg Hydrox/Simethicone (Maalox) 30 ml PO Q6HR PRN PRN Reason: GI DISTRESS Stop: 02/27/17 00:37 Last Admin: 12/30/16 09:21 Dose: 30 ml Albuterol Sulfate (Albuterol 2.5mg/3ml Neb Ud) 2.5 mg HHN QIDRT [facility] Stop: 02/27/17 06:59 Last Admin: 01/04/17 11:32 Dose: 2.5 mg Ascorbic Acid (Vitamin C) 500 mg PO DAILY [facility] Stop: 02/27/17 08:59 Last Admin: 01/04/17 09:28 Dose: 500 mg Aspirin (Aspirin Chewable) 81 mg PO DAILY [facility] Stop: 02/27/17 08:59 Last Admin: 01/04/17 09:24 Dose: 81 mg Atorvastatin Calcium (Lipitor) 20 mg PO HS [facility] PRN Reason: Protocol Stop: 02/27/17 20:59 Last Admin: 01/03/17 20:44 Dose: 20 mg Benztropine Mesylate (Cogentin) 1 mg PO BID [facility] Stop: 02/27/17 08:59 Last Admin: 01/04/17 09:24 Dose: 1 mg Buspirone HCl (Buspar) 10 mg PO BID [facility] PRN Reason: Protocol Stop: 02/27/17 08:59 Last Admin: 01/04/17 09:29 Dose: 10 mg Carbamazepine (Tegretol) 600 mg PO Q12HR [facility] PRN Reason: Protocol Stop: 02/27/17 08:59 Last Admin: 01/04/17 09:28 Dose: 600 mg Carbidopa/Levodopa (Sinemet 25mg-100 Mg) 1 tab PO TID [facility] Stop: 02/27/17 08:59 Last Admin: 01/04/17 09:24 Dose: 1 tab Divalproex Sodium (Depakote Dr) 500 mg PO HS [facility] PRN Reason: Protocol Stop: 02/27/17 20:59 Last Admin: 01/03/17 20:44 Dose: 500 mg Divalproex Sodium (Depakote Dr) 1,000 mg PO BID [facility] PRN Reason: Protocol Stop: 02/27/17 08:59 Last Admin: 01/04/17 09:25 Dose: 1,000 mg Docusate Sodium (Colace) 100 mg PO DAILY [facility] Stop: 02/27/17 08:59 Last Admin: 01/04/17 09:24 Dose: 100 mg Fenofibrate (Tricor) 134 mg PO DAILY [facility] Stop: 02/27/17 08:59 Last Admin: 01/04/17 09:24 Dose: 134 mg Guaifenesin (Robitussin) 200 mg PO Q4HR PRN PRN Reason: Cough or Congestion Stop: 02/27/17 00:37 Hydrocortisone (Hydrocortisone 2.5%) 1 appl TP BID [facility] Stop: 02/27/17 08:59 Last Admin: 01/04/17 11:08 Dose: 1 appl Ipratropium [place] (Atrovent Neb 0.5mg/2.5ml) 0.5 mg HHN QIDRT [facility] Stop: 02/27/17 06:59 Last Admin: 01/04/17 11:32 Dose: 0.5 mg Lactulose (Cephulac) 40 gm PO Q6HR [facility] Stop: 02/27/17 05:59 Last Admin: 01/04/17 05:29 Dose: 40 gm Levofloxacin (Levaquin) 500 mg PO Q24H [facility] Stop: 02/27/17 17:59 Last Admin: 01/03/17 17:03 Dose: 500 mg Losartan Potassium (Cozaar) 100 mg PO DAILY [facility] Stop: 02/27/17 08:59 Last Admin: 01/04/17 11:07 Dose: Not Given Magnesium Hydroxide (Milk Of Magnesia) 30 ml PO HS PRN PRN Reason: Constipation Stop: 02/27/17 00:37 Multivitamins/Vitamin C (Theragran) 1 tab PO DAILY [facility] Stop: 02/27/17 08:59 Last Admin: 01/04/17 09:24 Dose: 1 tab Oxybutynin Chloride (Ditropan) 5 mg PO HS [facility] Stop: 02/27/17 20:59 Last Admin: 01/03/17 20:44 Dose: 5 mg Pantoprazole Sodium (Protonix) 40 mg PO BID [facility] Stop: 02/27/17 08:59 Last Admin: 01/04/17 09:24 Dose: 40 mg Quetiapine Fumarate (Seroquel) 50 mg PO BID [facility] PRN Reason: Protocol Stop: 02/27/17 08:59 Last Admin: 01/04/17 09:27 Dose: 50 mg General: demented HEENT: NC/AT, PERRLA Neck: Supple, No JVD Lungs: CTAB Cardiovascular: RRR, Normal S1, Normal S2 Abdomen: soft non-tender, globular, positive bowel sound Extremities: excoriation Neurological: no change, disorganized - Procedures Procedures: Procedures Procedure Code Date GROUP PSYCHOTHERAPY 90692 12/06/15 GROUP PSYCHOTHERAPY GZHZZZZ 12/06/15 OTHER GROUP THERAPY 94.44 06/02/14 RECREATIONAL THERAPY 93.81 07/28/11 Internal Medicine Assmt/Plan - Assessment Assessment: COPD ACUTE BRONCHITIS GENERALIZED WEAKNESS LEUKOCYTOSIS ABDOMINAL PAIN HX STROKE DJD HYPERCHOLESTEREMIA SCHIZPHRENIA PARKINSONS - Plan Plan: cont on o2 bronchodilator fall precaution cont on sinemet dw rn Nutritional Asmnt/Malnutr-PDOC - Dietary Evaluation Malnutrition Findings (Please click <Entered> for more info): Nutritional Asmnt/Malnutrition Start: 01/02/17 17: 09 Text: Status: Complete Freq: Document 01/02/17 17:09 CRISTEL (Rec: 01/02/17 17:11 [email or web address]) Nutritional Asmnt/Malnutrition Patient General Information Nutritional Screening Moderate Risk Screening Diagnosis Psychosis Pertinent Medical Hx/Surgical Hx COPD, acute bronchitis, generalized weakness, leuokcytosis, abdominal pain, hx stroke, DJD, hypercholesteremia, schizophrenia, parkinsons Subjective Information 66 year old male. Pt was participating in group session durring visit. Spoke with nursing staff and CONTENT MANAGEMENT CONSULTANT, pt is a questionable/poor historian, often goes off topic and is verbally inappropriate, however no nutritional concerns at this time. Avg PO intake 100% of meals, meeting nutritional needs. Current Diet Order/ Nutrition Support [facility] soft chopped Pertinent Medications Maalox, Vitamin C, Lipitor, Colace, Cephylac, MOM, Theragran, Protonix, Seroquel Pertinent Labs No current labs Nutritional Hx/Data Height 1.83 m Height (Calculated Centimeters) 182.9 Current Weight (lbs) 99.79 kg Weight (Calculated Kilograms) 99.8 Weight (Calculated Grams) 03188.3 [place] Body Weight 178lb Weight Status Overweight GI Symptoms Food Allergies No Cultural/Ethnic/Tenriism Belief Unknown. Usual diet at home Unknown. Skin Integrity/Comment: Jani 18. Skin intact. Current %PO Good (75-100%) Estimated Nutritional Goals Calories/Kcals/Kg IBW 178lb / 80.9kg 25-30kcal/ kg Kcals Calculated 2023-2427kcal Protein g/kg: IBW 80.9kg 1g/kg Protein Calculated 81g Fluid: ml 2023-2427ml (1ml/kcal) Nutritional Problem 1. Problem Problem No nutritional problems at this time. Intervention/Recommendation Comments 1. Continue with [facility] soft chopped diet. Current PO intake is adequate. Expected Outcomes/Goals Expected Outcomes/Goals 1. PO intake continue to meet at least 75% of estimated nutritional needs.
[2017-01-04] MEDS: Atorvastatin Calcium 10 MG TAB PO SCH (20:49)
--- NOTE | 2017-01-04 21:57 | Progress Notes ---
SUBJECTIVE: The patient was seen, discussed with staff. Still disorganized, irritable, some agitation with some hypersexual behavior. The patient, however, is taking his medication. Sleep has been fair. Appetite is fair. Insight is still poor and judgment remains impaired. ASSESSMENT: The patient continues to lack capacity for his self care and is still impulsive. PLAN: We will continue hospitalization. Continue to monitor closely. [facility]# [id number]
[2017-01-05] MEDS: Lactulose 10 Gm/15 mL 30mL UDC PO SCH ×6 (00:22→23:58)
[2017-01-05] MEDS: Albuterol Nebulizer 2.5mg/3mL HHN SCH ×4 (09:00→19:55)
[2017-01-05] MEDS: Ipratropium Neb 0.5 mg/2.5 mL UD HHN SCH ×4 (09:01→19:55)
[2017-01-05] MEDS: Aspirin 81mg Chewable Tab PO SCH (09:41)
[2017-01-05] MEDS: Benztropine 1 MG TAB PO SCH ×2 (09:41→17:52)
[2017-01-05] MEDS: Fenofibrate, Micronized 134 mg Cap PO SCH (09:42)
[2017-01-05] MEDS: Pantoprazole 40 mg EC Tab PO SCH ×2 (09:43→17:53)
[2017-01-05] MEDS: Multivitamin Tab PO SCH (09:43)
--- NOTE | 2017-01-05 15:02 | Internal Medicine Prog Note ---
Internal Medicine Subjective - Subjective Service Date: 01/05/17 Patient seen and examined:: with staff Patient is:: awake Per staff patient is:: no adverse event Internal Medicine Objective - Results Recent Labs: Laboratory Last Values PT 10.4 SECONDS (9.5-11.5) 01/03/17 12:20 INR 1.00 (0.5-1.4) 01/03/17 12:20 PTT (Actin FS) 25.1 SECONDS (26.0-38.0) L 01/03/17 12:20 Ammonia 136 umol/L (16-53) H 01/03/17 15:06 - Physical Exam Vitals and I&O: Vital Signs Temp 98.2 F 01/05/17 06:12 Pulse 78 01/05/17 11:00 Resp 20 01/05/17 11:00 BP 140/77 01/05/17 09:42 Pulse Ox 95 01/05/17 11:00 Intake & Output 01/04/17 01/05/17 01/05/17 18:59 06:59 18:59 Intake Total 120 Balance 120 Intake: Oral 120 Other: # Voids 3 Active Medications: Current Medications Acetaminophen (Tylenol) 650 mg PO Q4H PRN PRN Reason: PAIN OR FEVER >100.5 Stop: 02/27/17 01:43 Last Admin: 12/30/16 09:20 Dose: 650 mg Al Hydrox/Mg Hydrox/Simethicone (Maalox) 30 ml PO Q6HR PRN PRN Reason: GI DISTRESS Stop: 02/27/17 00:37 Last Admin: 12/30/16 09:21 Dose: 30 ml Albuterol Sulfate (Albuterol 2.5mg/3ml Neb Ud) 2.5 mg HHN QIDRT [facility] Stop: 02/27/17 06:59 Last Admin: 01/05/17 11:00 Dose: Not Given Ascorbic Acid (Vitamin C) 500 mg PO DAILY [facility] Stop: 02/27/17 08:59 Last Admin: 01/05/17 09:40 Dose: 500 mg Aspirin (Aspirin Chewable) 81 mg PO DAILY [facility] Stop: 02/27/17 08:59 Last Admin: 01/05/17 09:41 Dose: 81 mg Atorvastatin Calcium (Lipitor) 20 mg PO [facility] PRN Reason: Protocol Stop: 02/27/17 20:59 Last Admin: 01/04/17 20:49 Dose: 20 mg Benztropine Mesylate (Cogentin) 1 mg PO BID [facility] Stop: 02/27/17 08:59 Last Admin: 01/05/17 09:41 Dose: 1 mg Buspirone HCl (Buspar) 10 mg PO BID [facility] PRN Reason: Protocol Stop: 02/27/17 08:59 Last Admin: 01/05/17 09:41 Dose: 10 mg Carbamazepine (Tegretol) 600 mg PO Q12HR [facility] PRN Reason: Protocol Stop: 02/27/17 08:59 Last Admin: 01/05/17 09:41 Dose: 600 mg Carbidopa/Levodopa (Sinemet 25mg-100 Mg) 1 tab PO TID [facility] Stop: 02/27/17 08:59 Last Admin: 01/05/17 09:41 Dose: 1 tab Divalproex Sodium (Depakote Dr) 500 mg PO HS [facility] PRN Reason: Protocol Stop: 02/27/17 20:59 Last Admin: 01/04/17 20:48 Dose: 500 mg Divalproex Sodium (Depakote Dr) 1,000 mg PO BID [facility] PRN Reason: Protocol Stop: 02/27/17 08:59 Last Admin: 01/05/17 09:42 Dose: 1,000 mg Docusate Sodium (Colace) 100 mg PO DAILY [facility] Stop: 02/27/17 08:59 Last Admin: 01/05/17 09:42 Dose: Not Given Fenofibrate (Tricor) 134 mg PO DAILY [facility] Stop: 02/27/17 08:59 Last Admin: 01/05/17 09:42 Dose: 134 mg Guaifenesin (Robitussin) 200 mg PO Q4HR PRN PRN Reason: Cough or Congestion Stop: 02/27/17 00:37 Hydrocortisone (Hydrocortisone 2.5%) 1 appl TP BID [facility] Stop: 02/27/17 08:59 Last Admin: 01/05/17 10:00 Dose: 1 appl Ipratropium [place] (Atrovent Neb 0.5mg/2.5ml) 0.5 mg HHN QIDRT [facility] Stop: 02/27/17 06:59 Last Admin: 01/05/17 11:00 Dose: Not Given Lactulose (Cephulac) 40 gm PO Q6HR [facility] Stop: 02/27/17 05:59 Last Admin: 01/05/17 12:34 Dose: Not Given Levofloxacin (Levaquin) 500 mg PO Q24H [facility] Stop: 02/27/17 17:59 Last Admin: 01/04/17 18:43 Dose: 500 mg Losartan Potassium (Cozaar) 100 mg PO DAILY [facility] Stop: 02/27/17 08:59 Last Admin: 01/05/17 09:42 Dose: 100 mg Magnesium Hydroxide (Milk Of Magnesia) 30 ml PO HS PRN PRN Reason: Constipation Stop: 02/27/17 00:37 Multivitamins/Vitamin C (Theragran) 1 tab PO DAILY [facility] Stop: 02/27/17 08:59 Last Admin: 01/05/17 09:43 Dose: 1 tab Oxybutynin Chloride (Ditropan) 5 mg PO HS [facility] Stop: 02/27/17 20:59 Last Admin: 01/04/17 20:47 Dose: 5 mg Pantoprazole Sodium (Protonix) 40 mg PO BID [facility] Stop: 02/27/17 08:59 Last Admin: 01/05/17 09:43 Dose: 40 mg Quetiapine Fumarate (Seroquel) 50 mg PO BID [facility] PRN Reason: Protocol Stop: 02/27/17 08:59 Last Admin: 01/05/17 09:43 Dose: 50 mg General: alert HEENT: NC/AT, PERRLA Neck: Supple Lungs: CTAB Cardiovascular: RRR, Normal S1, Normal S2, without murmur Abdomen: soft non-tender, non-distended, positive bowel sound Neurological: no change - Procedures Procedures: Procedures Procedure Code Date GROUP PSYCHOTHERAPY 97728 12/06/15 GROUP PSYCHOTHERAPY GZHZZZZ 12/06/15 OTHER GROUP THERAPY 94.44 06/02/14 RECREATIONAL THERAPY 93.81 07/28/11 Internal Medicine Assmt/Plan - Assessment Assessment: COPD ACUTE BRONCHITIS GENERALIZED WEAKNESS ABDOMINAL PAIN HX STROKE DJD HYPERCHOLESTEREMIA SCHIZPHRENIA PARKINSONS - Plan Plan: bronchodilators as needed supplemental o2 fall precautions cpm Nutritional Asmnt/Malnutr-PDOC - Dietary Evaluation Malnutrition Findings (Please click <Entered> for more info): Nutritional Asmnt/Malnutrition Start: 01/02/17 17: 09 Text: Status: Complete Freq: Document 01/02/17 17:09 GSUN (Rec: 01/02/17 17:11 GSUN [email or web address]) Nutritional Asmnt/Malnutrition Patient General Information Nutritional Screening Moderate Risk Screening Diagnosis Psychosis Pertinent Medical Hx/Surgical Hx COPD, acute bronchitis, generalized weakness, leuokcytosis, abdominal pain, hx stroke, DJD, hypercholesteremia, schizophrenia, parkinsons Subjective Information 66 year old male. Pt was participating in group session durring visit. Spoke with nursing staff and DAIRY DEPARTMENT MANAGER, pt is a questionable/poor historian, often goes off topic and is verbally inappropriate, however no nutritional concerns at this time. Avg PO intake 100% of meals, meeting nutritional needs. Current Diet Order/ Nutrition Support [facility] soft chopped Pertinent Medications Maalox, Vitamin C, Lipitor, Colace, Cephylac, MOM, Theragran, Protonix, Seroquel Pertinent Labs No current labs Nutritional Hx/Data Height 6 ft Height (Calculated Centimeters) 182.9 Current Weight (lbs) 220 lb Weight (Calculated Kilograms) 99.8 Weight (Calculated Grams) 74652.3 [place] Body Weight 178lb Weight Status Overweight GI Symptoms Food Allergies No Cultural/Ethnic/Orthodox Belief Unknown. Usual diet at home Unknown. Skin Integrity/Comment: Jani 18. Skin intact. Current %PO Good (75-100%) Estimated Nutritional Goals Calories/Kcals/Kg IBW 178lb / 80.9kg 25-30kcal/ kg Kcals Calculated 2023-2427kcal Protein g/kg: IBW 80.9kg 1g/kg Protein Calculated 81g Fluid: ml 2023-2427ml (1ml/kcal) Nutritional Problem 1. Problem Problem No nutritional problems at this time. Intervention/Recommendation Comments 1. Continue with [facility] soft chopped diet. Current PO intake is adequate. Expected Outcomes/Goals Expected Outcomes/Goals 1. PO intake continue to meet at least 75% of estimated nutritional needs.
[2017-01-05] MEDS: Atorvastatin Calcium 10 MG TAB PO SCH (20:53)
--- NOTE | 2017-01-06 00:02 | Progress Notes ---
SUBJECTIVE: I met this patient, discussed with staff. Still disorganized, guarded, still irritable, some mood swings, still with some hypersexual behavior; however, his appetite and sleep are fair. His vital signs are stable. The patient is compliant with his medication. He has no sedation or EPS. ASSESSMENT: The patient is still in psychotic phase, still intrusive and lacks ability to care for himself. PLAN: We will continue hospitalization and monitor closely. JOB# [id number]
[2017-01-06] MEDS: Lactulose 10 Gm/15 mL 30mL UDC PO SCH ×3 (05:51→17:14)
[2017-01-06] MEDS: Ipratropium Neb 0.5 mg/2.5 mL UD HHN SCH ×4 (07:06→19:51)
[2017-01-06] MEDS: Albuterol Nebulizer 2.5mg/3mL HHN SCH ×4 (07:06→19:51)
[2017-01-06] MEDS: Aspirin 81mg Chewable Tab PO SCH (08:34)
[2017-01-06] MEDS: Benztropine 1 MG TAB PO SCH ×2 (08:35→16:31)
[2017-01-06] MEDS: Multivitamin Tab PO SCH (08:35)
[2017-01-06] MEDS: Pantoprazole 40 mg EC Tab PO SCH ×2 (08:36→16:32)
[2017-01-06] MEDS: Fenofibrate, Micronized 134 mg Cap PO SCH (08:46)
--- NOTE | 2017-01-06 16:23 | Internal Medicine Prog Note ---
Internal Medicine Subjective - Subjective Patient seen and examined:: with staff, chart reviewed Patient is:: awake, interactive, in wheelchair Per staff patient is:: no adverse event, eating well, confused Internal Medicine Objective - Results Recent Labs: Laboratory Last Values PT 10.4 SECONDS (9.5-11.5) 01/03/17 12:20 INR 1.00 (0.5-1.4) 01/03/17 12:20 PTT (Actin FS) 25.1 SECONDS (26.0-38.0) L 01/03/17 12:20 Ammonia 136 umol/L (16-53) H 01/03/17 15:06 - Physical Exam Vitals and I&O: Vital Signs Temp 98 F 01/06/17 15:27 Pulse 75 01/06/17 15:27 Resp 21 01/06/17 15:27 BP 134/92 01/06/17 15:27 Pulse Ox 98 01/06/17 15:27 Intake & Output 01/05/17 01/06/17 01/06/17 18:59 06:59 18:59 Intake Total 950 Balance 950 Intake: Oral 950 Other: # Voids 3 2 # Bowel Movements 1 Active Medications: Current Medications Acetaminophen (Tylenol) 650 mg PO Q4H PRN PRN Reason: PAIN OR FEVER >100.5 Stop: 02/27/17 01:43 Last Admin: 12/30/16 09:20 Dose: 650 mg Al Hydrox/Mg Hydrox/Simethicone (Maalox) 30 ml PO Q6HR PRN PRN Reason: GI DISTRESS Stop: 02/27/17 00:37 Last Admin: 12/30/16 09:21 Dose: 30 ml Albuterol Sulfate (Albuterol 2.5mg/3ml Neb Ud) 2.5 mg HHN QIDRT [facility] Stop: 02/27/17 06:59 Last Admin: 01/06/17 14:31 Dose: 2.5 mg Ascorbic Acid (Vitamin C) 500 mg PO DAILY [facility] Stop: 02/27/17 08:59 Last Admin: 01/06/17 08:34 Dose: 500 mg Aspirin (Aspirin Chewable) 81 mg PO DAILY [facility] Stop: 02/27/17 08:59 Last Admin: 01/06/17 08:34 Dose: 81 mg Atorvastatin Calcium (Lipitor) 20 mg PO HS [facility] PRN Reason: Protocol Stop: 02/27/17 20:59 Last Admin: 01/05/17 20:53 Dose: 20 mg Benztropine Mesylate (Cogentin) 1 mg PO BID [facility] Stop: 02/27/17 08:59 Last Admin: 01/06/17 08:35 Dose: 1 mg Buspirone HCl (Buspar) 10 mg PO BID [facility] PRN Reason: Protocol Stop: 02/27/17 08:59 Last Admin: 01/06/17 08:32 Dose: 10 mg Carbamazepine (Tegretol) 600 mg PO Q12HR [facility] PRN Reason: Protocol Stop: 02/27/17 08:59 Last Admin: 01/06/17 08:44 Dose: 600 mg Carbidopa/Levodopa (Sinemet 25mg-100 Mg) 1 tab PO TID [facility] Stop: 02/27/17 08:59 Last Admin: 01/06/17 13:30 Dose: 1 tab Divalproex Sodium (Depakote Dr) 500 mg PO HS [facility] PRN Reason: Protocol Stop: 02/27/17 20:59 Last Admin: 01/05/17 20:54 Dose: 500 mg Divalproex Sodium (Depakote Dr) 1,000 mg PO BID [facility] PRN Reason: Protocol Stop: 02/27/17 08:59 Last Admin: 01/06/17 08:45 Dose: 1,000 mg Docusate Sodium (Colace) 100 mg PO DAILY [facility] Stop: 02/27/17 08:59 Last Admin: 01/06/17 08:34 Dose: 100 mg Fenofibrate (Tricor) 134 mg PO DAILY [facility] Stop: 02/27/17 08:59 Last Admin: 01/06/17 08:46 Dose: 134 mg Guaifenesin (Robitussin) 200 mg PO Q4HR PRN PRN Reason: Cough or Congestion Stop: 02/27/17 00:37 Hydrocortisone (Hydrocortisone 2.5%) 1 appl TP BID [facility] Stop: 02/27/17 08:59 Last Admin: 01/06/17 08:36 Dose: 1 appl Ipratropium [place] (Atrovent Neb 0.5mg/2.5ml) 0.5 mg HHN QIDRT [facility] Stop: 02/27/17 06:59 Last Admin: 01/06/17 14:31 Dose: 0.5 mg Lactulose (Cephulac) 40 gm PO Q6HR [facility] Stop: 02/27/17 05:59 Last Admin: 01/06/17 12:55 Dose: Not Given Levofloxacin (Levaquin) 500 mg PO Q24H [facility] Stop: 02/27/17 17:59 Last Admin: 01/05/17 18:50 Dose: 500 mg Losartan Potassium (Cozaar) 100 mg PO DAILY [facility] Stop: 02/27/17 08:59 Last Admin: 01/06/17 08:36 Dose: Not Given Magnesium Hydroxide (Milk Of Magnesia) 30 ml PO HS PRN PRN Reason: Constipation Stop: 02/27/17 00:37 Multivitamins/Vitamin C (Theragran) 1 tab PO DAILY [facility] Stop: 02/27/17 08:59 Last Admin: 01/06/17 08:35 Dose: 1 tab Oxybutynin Chloride (Ditropan) 5 mg PO HS [facility] Stop: 02/27/17 20:59 Last Admin: 01/05/17 20:54 Dose: 5 mg Pantoprazole Sodium (Protonix) 40 mg PO BID [facility] Stop: 02/27/17 08:59 Last Admin: 01/06/17 08:36 Dose: 40 mg Paroxetine HCl (Paxil) 10 mg PO DAILY [facility] PRN Reason: Protocol Stop: 03/08/17 08:59 Quetiapine Fumarate (Seroquel) 50 mg PO BID [facility] PRN Reason: Protocol Stop: 02/27/17 08:59 Last Admin: 01/06/17 08:37 Dose: 50 mg General: demented, obese HEENT: NC/AT, PERRLA Neck: Supple, No JVD Lungs: CTAB Cardiovascular: RRR, Normal S1, Normal S2 Abdomen: soft non-tender, globular, positive bowel sound Extremities: excoriation, contracture Neurological: no change - Procedures Procedures: Procedures Procedure Code Date GROUP PSYCHOTHERAPY 48802 12/06/15 GROUP PSYCHOTHERAPY GZHZZZZ 12/06/15 OTHER GROUP THERAPY 94.44 06/02/14 RECREATIONAL THERAPY 93.81 07/28/11 Internal Medicine Assmt/Plan - Assessment Assessment: COPD ACUTE BRONCHITIS GENERALIZED WEAKNESS LEUKOCYTOSIS ABDOMINAL PAIN HX STROKE DJD HYPERCHOLESTEREMIA SCHIZPHRENIA PARKINSONS - Plan Plan: cont on o2 bronchodilator fall precaution cont on sinemet dw rn Nutritional Asmnt/Malnutr-PDOC - Dietary Evaluation Malnutrition Findings (Please click <Entered> for more info): Nutritional Asmnt/Malnutrition Start: 01/02/17 17: 09 Text: Status: Complete Freq: Document 01/02/17 17:09 CRISTEL (Rec: 01/02/17 17:11 [email or web address]) Nutritional Asmnt/Malnutrition Patient General Information Nutritional Screening Moderate Risk Screening Diagnosis Psychosis Pertinent Medical Hx/Surgical Hx COPD, acute bronchitis, generalized weakness, leuokcytosis, abdominal pain, hx stroke, DJD, hypercholesteremia, schizophrenia, parkinsons Subjective Information 66 year old male. Pt was participating in group session durring visit. Spoke with nursing staff and CHILI PEPPER GRINDER, pt is a questionable/poor historian, often goes off topic and is verbally inappropriate, however no nutritional concerns at this time. Avg PO intake 100% of meals, meeting nutritional needs. Current Diet Order/ Nutrition Support [facility] soft chopped Pertinent Medications Maalox, Vitamin C, Lipitor, Colace, Cephylac, MOM, Theragran, Protonix, Seroquel Pertinent Labs No current labs Nutritional Hx/Data Height 1.83 m Height (Calculated Centimeters) 182.9 Current Weight (lbs) 99.79 kg Weight (Calculated Kilograms) 99.8 Weight (Calculated Grams) 15108.3 [place] Body Weight 178lb Weight Status Overweight GI Symptoms Food Allergies No Cultural/Ethnic/Temple Belief Unknown. Usual diet at home Unknown. Skin Integrity/Comment: Jani 18. Skin intact. Current %PO Good (75-100%) Estimated Nutritional Goals Calories/Kcals/Kg IBW 178lb / 80.9kg 25-30kcal/ kg Kcals Calculated 202-2427kcal Protein g/kg: IBW 80.9kg 1g/kg Protein Calculated 81g Fluid: ml 2023-2427ml (1ml/kcal) Nutritional Problem 1. Problem Problem No nutritional problems at this time. Intervention/Recommendation Comments 1. Continue with [facility] soft chopped diet. Current PO intake is adequate. Expected Outcomes/Goals Expected Outcomes/Goals 1. PO intake continue to meet at least 75% of estimated nutritional needs.
[2017-01-06] MEDS: Atorvastatin Calcium 10 MG TAB PO SCH (20:26)
[2017-01-07] MEDS: Lactulose 10 Gm/15 mL 30mL UDC PO SCH ×4 (00:55→17:37)
[2017-01-07] MEDS: Ipratropium Neb 0.5 mg/2.5 mL UD HHN SCH ×3 (06:53→14:29)
[2017-01-07] MEDS: Albuterol Nebulizer 2.5mg/3mL HHN SCH ×4 (06:53→20:21)
[2017-01-07] MEDS: Aspirin 81mg Chewable Tab PO SCH (08:31)
[2017-01-07] MEDS: Multivitamin Tab PO SCH (08:32)
[2017-01-07] MEDS: Pantoprazole 40 mg EC Tab PO SCH ×2 (08:32→16:26)
[2017-01-07] MEDS: Fenofibrate, Micronized 134 mg Cap PO SCH (08:34)
[2017-01-07] MEDS: Benztropine 1 MG TAB PO SCH ×2 (08:34→16:21)
--- NOTE | 2017-01-07 09:09 | Progress Notes ---
SUBJECTIVE: The patient was seen, discussed with staff, and chart reviewed. Still with sexually inappropriate behavior, at times trying to masturbate excessively. The patient's insight remains poor. Judgment is still impaired. The patient at times appears to be depressed. ASSESSMENT: The patient is still anxious and has mood instability, still with episodes of agitation. PLAN: We will continue supportive measures, monitor closely. Add Paxil 10 mg p.o. daily. We will monitor closely. [facility]# [id number]
--- NOTE | 2017-01-07 15:27 | Internal Medicine Prog Note ---
Internal Medicine Subjective - Subjective Patient seen and examined:: with staff, chart reviewed Patient is:: awake, verbal, interactive, in wheelchair Per staff patient is:: no adverse event, confused Internal Medicine Objective - Results Recent Labs: Laboratory Last Values PT 10.4 SECONDS (9.5-11.5) 01/03/17 12:20 INR 1.00 (0.5-1.4) 01/03/17 12:20 PTT (Actin FS) 25.1 SECONDS (26.0-38.0) L 01/03/17 12:20 Ammonia 136 umol/L (16-53) H 01/03/17 15:06 - Physical Exam Vitals and I&O: Vital Signs Temp 98 F 01/06/17 15:27 Pulse 81 01/07/17 14:31 Resp 16 01/07/17 14:31 BP 100/54 01/07/17 08:34 Pulse Ox 95 01/07/17 14:31 Intake & Output 01/06/17 01/07/17 01/07/17 18:59 06:59 18:59 Other: # Voids 2 Active Medications: Current Medications Acetaminophen (Tylenol) 650 mg PO Q4H PRN PRN Reason: PAIN OR FEVER >100.5 Stop: 02/27/17 01:43 Last Admin: 12/30/16 09:20 Dose: 650 mg Al Hydrox/Mg Hydrox/Simethicone (Maalox) 30 ml PO Q6HR PRN PRN Reason: GI DISTRESS Stop: 02/27/17 00:37 Last Admin: 12/30/16 09:21 Dose: 30 ml Albuterol Sulfate (Albuterol 2.5mg/3ml Neb Ud) 2.5 mg HHN QIDRT [facility] Stop: 02/27/17 06:59 Last Admin: 01/07/17 14:29 Dose: 2.5 mg Ascorbic Acid (Vitamin C) 500 mg PO DAILY [facility] Stop: 02/27/17 08:59 Last Admin: 01/07/17 08:32 Dose: 500 mg Aspirin (Aspirin Chewable) 81 mg PO DAILY [facility] Stop: 02/27/17 08:59 Last Admin: 01/07/17 08:31 Dose: 81 mg Atorvastatin Calcium (Lipitor) 20 mg PO [facility] PRN Reason: Protocol Stop: 02/27/17 20:59 Last Admin: 01/06/17 20:26 Dose: 20 mg Benztropine Mesylate (Cogentin) 1 mg PO BID [facility] Stop: 02/27/17 08:59 Last Admin: 01/07/17 08:34 Dose: 1 mg Buspirone HCl (Buspar) 10 mg PO BID [facility]ARA PRN Reason: Protocol Stop: 02/27/17 08:59 Last Admin: 01/07/17 08:31 Dose: 10 mg Carbamazepine (Tegretol) 600 mg PO Q12HR [facility] PRN Reason: Protocol Stop: 02/27/17 08:59 Last Admin: 01/07/17 08:34 Dose: 600 mg Carbidopa/Levodopa (Sinemet 25mg-100 Mg) 1 tab PO TID [facility] Stop: 02/27/17 08:59 Last Admin: 01/07/17 13:14 Dose: 1 tab Divalproex Sodium (Depakote Dr) 500 mg PO HS [facility] PRN Reason: Protocol Stop: 02/27/17 20:59 Last Admin: 01/06/17 20:26 Dose: 500 mg Divalproex Sodium (Depakote Dr) 1,000 mg PO BID [facility] PRN Reason: Protocol Stop: 02/27/17 08:59 Last Admin: 01/07/17 08:33 Dose: 1,000 mg Docusate Sodium (Colace) 100 mg PO DAILY [facility] Stop: 02/27/17 08:59 Last Admin: 01/07/17 08:32 Dose: 100 mg Fenofibrate (Tricor) 134 mg PO DAILY [facility] Stop: 02/27/17 08:59 Last Admin: 01/07/17 08:34 Dose: 134 mg Guaifenesin (Robitussin) 200 mg PO Q4HR PRN PRN Reason: Cough or Congestion Stop: 02/27/17 00:37 Hydrocortisone (Hydrocortisone 2.5%) 1 appl TP BID [facility]ARA Stop: 02/27/17 08:59 Last Admin: 01/07/17 13:12 Dose: 1 appl Ipratropium [place] (Atrovent Neb 0.5mg/2.5ml) 0.5 mg HHN QIDRT [facility] Stop: 02/27/17 06:59 Last Admin: 01/07/17 14:29 Dose: 0.5 mg Lactulose (Cephulac) 40 gm PO Q6HR [facility] Stop: 02/27/17 05:59 Last Admin: 01/07/17 13:13 Dose: 40 gm Levofloxacin (Levaquin) 500 mg PO Q24H [facility] Stop: 02/27/17 17:59 Last Admin: 01/06/17 17:15 Dose: 500 mg Losartan Potassium (Cozaar) 100 mg PO DAILY [facility] Stop: 02/27/17 08:59 Last Admin: 01/07/17 08:34 Dose: Not Given Magnesium Hydroxide (Milk Of Magnesia) 30 ml PO HS PRN PRN Reason: Constipation Stop: 02/27/17 00:37 Multivitamins/Vitamin C (Theragran) 1 tab PO DAILY [facility] Stop: 02/27/17 08:59 Last Admin: 01/07/17 08:32 Dose: 1 tab Oxybutynin Chloride (Ditropan) 5 mg PO HS [facility] Stop: 02/27/17 20:59 Last Admin: 01/06/17 20:27 Dose: 5 mg Pantoprazole Sodium (Protonix) 40 mg PO BID [facility] Stop: 02/27/17 08:59 Last Admin: 01/07/17 08:32 Dose: 40 mg Paroxetine HCl (Paxil) 10 mg PO DAILY [facility] PRN Reason: Protocol Stop: 03/08/17 08:59 Last Admin: 01/07/17 08:32 Dose: 10 mg Quetiapine Fumarate (Seroquel) 50 mg PO BID [facility] PRN Reason: Protocol Stop: 02/27/17 08:59 Last Admin: 01/07/17 08:32 Dose: 50 mg General: demented HEENT: NC/AT, PERRLA Neck: Supple, No JVD Lungs: CTAB Cardiovascular: RRR, Normal S1, Normal S2 Abdomen: soft non-tender, globular, distended, positive bowel sound Extremities: excoriation Neurological: no change, disorganized - Procedures Procedures: Procedures Procedure Code Date GROUP PSYCHOTHERAPY 27081 12/06/15 GROUP PSYCHOTHERAPY GZHZZZZ 12/06/15 OTHER GROUP THERAPY 94.44 06/02/14 RECREATIONAL THERAPY 93.81 07/28/11 Internal Medicine Assmt/Plan - Assessment Assessment: COPD ACUTE BRONCHITIS GENERALIZED WEAKNESS LEUKOCYTOSIS ABDOMINAL PAIN HX STROKE DJD HYPERCHOLESTEREMIA SCHIZPHRENIA PARKINSONS - Plan Plan: cont on o2 bronchodilator fall precaution cont on sinemet dw rn Nutritional Asmnt/Malnutr-PDOC - Dietary Evaluation Malnutrition Findings (Please click <Entered> for more info): Nutritional Asmnt/Malnutrition Start: 01/02/17 17: 09 Text: Status: Complete Freq: Document 01/02/17 17:09 CRISTEL (Rec: 01/02/17 17:11 [email or web address]) Nutritional Asmnt/Malnutrition Patient General Information Nutritional Screening Moderate Risk Screening Diagnosis Psychosis Pertinent Medical Hx/Surgical Hx COPD, acute bronchitis, generalized weakness, leuokcytosis, abdominal pain, hx stroke, DJD, hypercholesteremia, schizophrenia, parkinsons Subjective Information 66 year old male. Pt was participating in group session durring visit. Spoke with nursing staff and REGISTERED NURSE CARDIAC, pt is a questionable/poor historian, often goes off topic and is verbally inappropriate, however no nutritional concerns at this time. Avg PO intake 100% of meals, meeting nutritional needs. Current Diet Order/ Nutrition Support [facility] soft chopped Pertinent Medications Maalox, Vitamin C, Lipitor, Colace, Cephylac, MOM, Theragran, Protonix, Seroquel Pertinent Labs No current labs Nutritional Hx/Data Height 1.83 m Height (Calculated Centimeters) 182.9 Current Weight (lbs) 99.79 kg Weight (Calculated Kilograms) 99.8 Weight (Calculated Grams) 32293.3 [place] Body Weight 178lb Weight Status Overweight GI Symptoms Food Allergies No Cultural/Ethnic/Gnosticist Belief Unknown. Usual diet at home Unknown. Skin Integrity/Comment: Jani 18. Skin intact. Current %PO Good (75-100%) Estimated Nutritional Goals Calories/Kcals/Kg IBW 178lb / 80.9kg 25-30kcal/ kg Kcals Calculated 202-2427kcal Protein g/kg: IBW 80.9kg 1g/kg Protein Calculated 81g Fluid: ml 2023-2427ml (1ml/kcal) Nutritional Problem 1. Problem Problem No nutritional problems at this time. Intervention/Recommendation Comments 1. Continue with [facility] soft chopped diet. Current PO intake is adequate. Expected Outcomes/Goals Expected Outcomes/Goals 1. PO intake continue to meet at least 75% of estimated nutritional needs.
[2017-01-07] MEDS: Atorvastatin Calcium 10 MG TAB PO SCH (20:45)
[2017-01-08] MEDS: Lactulose 10 Gm/15 mL 30mL UDC PO SCH ×4 (00:15→18:06)
--- NOTE | 2017-01-08 02:26 | Progress Notes ---
SUBJECTIVE: The patient was seen today, remains disorganized, irritable, still angry at times; however, is taking his medications. The patient continues to have hypersexual behavior episodes where he tries to masturbate in front of others. ASSESSMENT: The patient still in psychotic phase, still highly impulsive. PLAN: We will continue to monitor closely. Continue stabilization. The patient was started on Paxil. JOB# [id number]
[2017-01-08] MEDS: Ipratropium Neb 0.5 mg/2.5 mL UD HHN SCH ×4 (06:45→21:10)
[2017-01-08] MEDS: Albuterol Nebulizer 2.5mg/3mL HHN SCH ×4 (06:45→21:11)
[2017-01-08] MEDS: Pantoprazole 40 mg EC Tab PO SCH ×2 (09:07→17:39)
[2017-01-08] MEDS: Fenofibrate, Micronized 134 mg Cap PO SCH (09:09)
[2017-01-08] MEDS: Benztropine 1 MG TAB PO SCH ×2 (09:09→17:39)
[2017-01-08] MEDS: Aspirin 81mg Chewable Tab PO SCH (09:09)
[2017-01-08] MEDS: Multivitamin Tab PO SCH (09:09)
--- NOTE | 2017-01-08 12:36 | Internal Medicine Prog Note ---
Internal Medicine Subjective - Subjective Service Date: 01/08/17 (in activity room eating lunch nad) Patient is:: awake Per staff patient is:: no adverse event Internal Medicine Objective - Results Recent Labs: Laboratory Last Values PT 10.4 SECONDS (9.5-11.5) 01/03/17 12:20 INR 1.00 (0.5-1.4) 01/03/17 12:20 PTT (Actin FS) 25.1 SECONDS (26.0-38.0) L 01/03/17 12:20 Ammonia 136 umol/L (16-53) H 01/03/17 15:06 - Physical Exam Vitals and I&O: Vital Signs Temp 97.4 F 01/08/17 06:57 Pulse 70 01/08/17 10:28 Resp 16 01/08/17 10:28 BP 133/80 01/08/17 09:16 Pulse Ox 96 01/08/17 10:28 Intake & Output 01/07/17 01/08/17 01/08/17 18:59 06:59 18:59 Intake Total 240 Balance 240 Intake: Oral 240 Other: # Voids 3 # Bowel Movements 1 0 Active Medications: Current Medications Acetaminophen (Tylenol) 650 mg PO Q4H PRN PRN Reason: PAIN OR FEVER >100.5 Stop: 02/27/17 01:43 Last Admin: 12/30/16 09:20 Dose: 650 mg Al Hydrox/Mg Hydrox/Simethicone (Maalox) 30 ml PO Q6HR PRN PRN Reason: GI DISTRESS Stop: 02/27/17 00:37 Last Admin: 12/30/16 09:21 Dose: 30 ml Albuterol Sulfate (Albuterol 2.5mg/3ml Neb Ud) 2.5 mg HHN QIDRT [facility] Stop: 02/27/17 06:59 Last Admin: 01/08/17 10:26 Dose: 2.5 mg Ascorbic Acid (Vitamin C) 500 mg PO DAILY [facility] Stop: 02/27/17 08:59 Last Admin: 01/08/17 09:09 Dose: 500 mg Aspirin (Aspirin Chewable) 81 mg PO DAILY [facility] Stop: 02/27/17 08:59 Last Admin: 01/08/17 09:09 Dose: 81 mg Atorvastatin Calcium (Lipitor) 20 mg PO [facility] PRN Reason: Protocol Stop: 02/27/17 20:59 Last Admin: 01/07/17 20:45 Dose: 20 mg Benztropine Mesylate (Cogentin) 1 mg PO BID [facility] Stop: 02/27/17 08:59 Last Admin: 01/08/17 09:09 Dose: 1 mg Buspirone HCl (Buspar) 10 mg PO BID [facility] PRN Reason: Protocol Stop: 02/27/17 08:59 Last Admin: 01/08/17 09:08 Dose: 10 mg Carbamazepine (Tegretol) 600 mg PO Q12HR [facility] PRN Reason: Protocol Stop: 02/27/17 08:59 Last Admin: 01/08/17 09:07 Dose: 600 mg Carbidopa/Levodopa (Sinemet 25mg-100 Mg) 1 tab PO TID [facility] Stop: 02/27/17 08:59 Last Admin: 01/08/17 09:09 Dose: 1 tab Divalproex Sodium (Depakote Dr) 500 mg PO HS [facility] PRN Reason: Protocol Stop: 02/27/17 20:59 Last Admin: 01/07/17 20:45 Dose: 500 mg Divalproex Sodium (Depakote Dr) 1,000 mg PO BID [facility] PRN Reason: Protocol Stop: 02/27/17 08:59 Last Admin: 01/08/17 09:08 Dose: 1,000 mg Docusate Sodium (Colace) 100 mg PO DAILY [facility] Stop: 02/27/17 08:59 Last Admin: 01/08/17 09:09 Dose: 100 mg Fenofibrate (Tricor) 134 mg PO DAILY [facility] Stop: 02/27/17 08:59 Last Admin: 01/08/17 09:09 Dose: 134 mg Guaifenesin (Robitussin) 200 mg PO Q4HR PRN PRN Reason: Cough or Congestion Stop: 02/27/17 00:37 Hydrocortisone (Hydrocortisone 2.5%) 1 appl TP BID [facility] Stop: 02/27/17 08:59 Last Admin: 01/08/17 09:14 Dose: 1 appl Ipratropium [place] (Atrovent Neb 0.5mg/2.5ml) 0.5 mg HHN QIDRT [facility] Stop: 02/27/17 06:59 Last Admin: 01/08/17 10:26 Dose: 0.5 mg Lactulose (Cephulac) 40 gm PO Q6HR [facility] Stop: 02/27/17 05:59 Last Admin: 01/08/17 06:54 Dose: Not Given Levofloxacin (Levaquin) 500 mg PO Q24H [facility] Stop: 02/27/17 17:59 Last Admin: 01/07/17 17:38 Dose: 500 mg Losartan Potassium (Cozaar) 100 mg PO DAILY [facility] Stop: 02/27/17 08:59 Last Admin: 01/08/17 09:16 Dose: 100 mg Magnesium Hydroxide (Milk Of Magnesia) 30 ml PO HS PRN PRN Reason: Constipation Stop: 02/27/17 00:37 Multivitamins/Vitamin C (Theragran) 1 tab PO DAILY [facility] Stop: 02/27/17 08:59 Last Admin: 01/08/17 09:09 Dose: 1 tab Oxybutynin Chloride (Ditropan) 5 mg PO HS [facility] Stop: 02/27/17 20:59 Last Admin: 01/07/17 20:45 Dose: 5 mg Pantoprazole Sodium (Protonix) 40 mg PO BID [facility] Stop: 02/27/17 08:59 Last Admin: 01/08/17 09:07 Dose: 40 mg Paroxetine HCl (Paxil) 10 mg PO DAILY [facility] PRN Reason: Protocol Stop: 03/08/17 08:59 Last Admin: 01/08/17 09:08 Dose: 10 mg Quetiapine Fumarate (Seroquel) 50 mg PO BID [facility] PRN Reason: Protocol Stop: 02/27/17 08:59 Last Admin: 01/08/17 09:09 Dose: 50 mg General: alert HEENT: NC/AT, PERRLA Neck: Supple Lungs: CTAB Cardiovascular: RRR, Normal S1, Normal S2, without murmur Abdomen: soft non-tender Extremities: clear - Procedures Procedures: Procedures Procedure Code Date GROUP PSYCHOTHERAPY 75404 12/06/15 GROUP PSYCHOTHERAPY GZHZZZZ 12/06/15 OTHER GROUP THERAPY 94.44 06/02/14 RECREATIONAL THERAPY 93.81 07/28/11 Internal Medicine Assmt/Plan - Assessment Assessment: COPD ACUTE BRONCHITIS GENERALIZED WEAKNESS ABDOMINAL PAIN HX STROKE DJD HYPERCHOLESTEREMIA SCHIZPHRENIA PARKINSONS - Plan Plan: bronchodilators as needed supplemental o2 fall precautions cpm Nutritional Asmnt/Malnutr-PDOC - Dietary Evaluation Malnutrition Findings (Please click <Entered> for more info): Nutritional Asmnt/Malnutrition Start: 01/02/17 17: 09 Text: Status: Complete Freq: Document 01/02/17 17:09 CRISTEL (Rec: 01/02/17 17:11 CRISTEL [email or web address]) Nutritional Asmnt/Malnutrition Patient General Information Nutritional Screening Moderate Risk Screening Diagnosis Psychosis Pertinent Medical Hx/Surgical Hx COPD, acute bronchitis, generalized weakness, leuokcytosis, abdominal pain, hx stroke, DJD, hypercholesteremia, schizophrenia, parkinsons Subjective Information 66 year old male. Pt was participating in group session durring visit. Spoke with nursing staff and AVIATION PROJECT ENGINEER, pt is a questionable/poor historian, often goes off topic and is verbally inappropriate, however no nutritional concerns at this time. Avg PO intake 100% of meals, meeting nutritional needs. Current Diet Order/ Nutrition Support [facility] soft chopped Pertinent Medications Maalox, Vitamin C, Lipitor, Colace, Cephylac, MOM, Theragran, Protonix, Seroquel Pertinent Labs No current labs Nutritional Hx/Data Height 6 ft Height (Calculated Centimeters) 182.9 Current Weight (lbs) 220 lb Weight (Calculated Kilograms) 99.8 Weight (Calculated Grams) 39884.3 [place] Body Weight 178lb Weight Status Overweight GI Symptoms Food Allergies No Cultural/Ethnic/Mosque Belief Unknown. Usual diet at home Unknown. Skin Integrity/Comment: Jani 18. Skin intact. Current %PO Good (75-100%) Estimated Nutritional Goals Calories/Kcals/Kg IBW 178lb / 80.9kg 25-30kcal/ kg Kcals Calculated 2022-2427kcal Protein g/kg: IBW 80.9kg 1g/kg Protein Calculated 81g Fluid: ml 2022-2427ml (1ml/kcal) Nutritional Problem 1. Problem Problem No nutritional problems at this time. Intervention/Recommendation Comments 1. Continue with [facility] soft chopped diet. Current PO intake is adequate. Expected Outcomes/Goals Expected Outcomes/Goals 1. PO intake continue to meet at least 75% of estimated nutritional needs.
[2017-01-08] MEDS: Atorvastatin Calcium 10 MG TAB PO SCH (20:36)
--- NOTE | 2017-01-08 22:32 | Progress Notes ---
SUBJECTIVE: The patient was seen, discussed with staff, still somewhat anxious, intrusive, irritable at times, some hypersexual behavior, but he is easier to redirect and his anger outbursts have decreased. The patient's insight is still limited, judgment remains impaired. ASSESSMENT: The patient continues to be paranoid and agitated and irritable. PLAN: We will continue hospitalization, continue supportive measures, continue to monitor closely, hypersexual behavior is slowly decreasing. [facility]# [id number]
[2017-01-09] MEDS: Lactulose 10 Gm/15 mL 30mL UDC PO SCH ×3 (00:30→17:29)
[2017-01-09] MEDS: Ipratropium Neb 0.5 mg/2.5 mL UD HHN SCH ×3 (08:52→15:44)
[2017-01-09] MEDS: Albuterol Nebulizer 2.5mg/3mL HHN SCH ×4 (08:52→19:39)
[2017-01-09] MEDS: Benztropine 1 MG TAB PO SCH ×2 (09:45→17:27)
[2017-01-09] MEDS: Fenofibrate, Micronized 134 mg Cap PO SCH (09:45)
[2017-01-09] MEDS: Pantoprazole 40 mg EC Tab PO SCH ×2 (09:45→17:28)
[2017-01-09] MEDS: Aspirin 81mg Chewable Tab PO SCH (09:46)
[2017-01-09] MEDS: Multivitamin Tab PO SCH (09:46)
--- NOTE | 2017-01-09 12:21 | Internal Medicine Prog Note ---
Internal Medicine Subjective - Subjective Service Date: 01/09/17 Patient seen and examined:: with staff Patient is:: awake Per staff patient is:: no adverse event Internal Medicine Objective - Results Recent Labs: Laboratory Last Values PT 10.4 SECONDS (9.5-11.5) 01/03/17 12:20 INR 1.00 (0.5-1.4) 01/03/17 12:20 PTT (Actin FS) 25.1 SECONDS (26.0-38.0) L 01/03/17 12:20 Ammonia 136 umol/L (16-53) H 01/03/17 15:06 - Physical Exam Vitals and I&O: Vital Signs Temp 97.5 F 01/09/17 06:25 Pulse 69 01/09/17 09:09 Resp 16 01/09/17 09:09 BP 106/66 01/09/17 06:25 Pulse Ox 98 01/09/17 09:09 Intake & Output 01/08/17 01/09/17 01/09/17 18:59 06:59 18:59 Intake Total 2400 120 Output Total 4 Balance 2396 120 Intake: Oral 2400 120 Output: Urine 4 Other: # Voids 3 # Bowel Movements 1 Active Medications: Current Medications Acetaminophen (Tylenol) 650 mg PO Q4H PRN PRN Reason: PAIN OR FEVER >100.5 Stop: 02/27/17 01:43 Last Admin: 12/30/16 09:20 Dose: 650 mg Al Hydrox/Mg Hydrox/Simethicone (Maalox) 30 ml PO Q6HR PRN PRN Reason: GI DISTRESS Stop: 02/27/17 00:37 Last Admin: 12/30/16 09:21 Dose: 30 ml Albuterol Sulfate (Albuterol 2.5mg/3ml Neb Ud) 2.5 mg HHN QIDRT [facility] Stop: 02/27/17 06:59 Last Admin: 01/09/17 12:07 Dose: 2.5 mg Ascorbic Acid (Vitamin C) 500 mg PO DAILY [facility] Stop: 02/27/17 08:59 Last Admin: 01/09/17 09:46 Dose: 500 mg Aspirin (Aspirin Chewable) 81 mg PO DAILY [facility] Stop: 02/27/17 08:59 Last Admin: 01/09/17 09:46 Dose: 81 mg Atorvastatin Calcium (Lipitor) 20 mg PO HS [facility] PRN Reason: Protocol Stop: 02/27/17 20:59 Last Admin: 01/08/17 20:36 Dose: 20 mg Benztropine Mesylate (Cogentin) 1 mg PO BID [facility] Stop: 02/27/17 08:59 Last Admin: 01/09/17 09:45 Dose: 1 mg Buspirone HCl (Buspar) 10 mg PO BID [facility] PRN Reason: Protocol Stop: 02/27/17 08:59 Last Admin: 01/09/17 09:45 Dose: 10 mg Carbamazepine (Tegretol) 600 mg PO Q12HR [facility] PRN Reason: Protocol Stop: 02/27/17 08:59 Last Admin: 01/09/17 09:46 Dose: 600 mg Carbidopa/Levodopa (Sinemet 25mg-100 Mg) 1 tab PO TID [facility] Stop: 02/27/17 08:59 Last Admin: 01/09/17 09:45 Dose: 1 tab Divalproex Sodium (Depakote Dr) 500 mg PO HS [facility] PRN Reason: Protocol Stop: 02/27/17 20:59 Last Admin: 01/08/17 20:36 Dose: 500 mg Divalproex Sodium (Depakote Dr) 1,000 mg PO BID [facility] PRN Reason: Protocol Stop: 02/27/17 08:59 Last Admin: 01/09/17 09:45 Dose: 1,000 mg Docusate Sodium (Colace) 100 mg PO DAILY [facility] Stop: 02/27/17 08:59 Last Admin: 01/09/17 09:46 Dose: 100 mg Fenofibrate (Tricor) 134 mg PO DAILY [facility] Stop: 02/27/17 08:59 Last Admin: 01/09/17 09:45 Dose: 134 mg Guaifenesin (Robitussin) 200 mg PO Q4HR PRN PRN Reason: Cough or Congestion Stop: 02/27/17 00:37 Hydrocortisone (Hydrocortisone 2.5%) 1 appl TP BID [facility] Stop: 02/27/17 08:59 Last Admin: 01/08/17 17:42 Dose: 1 appl Ipratropium [place] (Atrovent Neb 0.5mg/2.5ml) 0.5 mg HHN QIDRT [facility] Stop: 02/27/17 06:59 Last Admin: 01/09/17 12:07 Dose: 0.5 mg Lactulose (Cephulac) 40 gm PO Q6HR [facility] Stop: 02/27/17 05:59 Last Admin: 01/09/17 06:11 Dose: 40 gm Levofloxacin (Levaquin) 500 mg PO Q24H [facility] Stop: 02/27/17 17:59 Last Admin: 01/08/17 17:40 Dose: 500 mg Losartan Potassium (Cozaar) 100 mg PO DAILY [facility] Stop: 02/27/17 08:59 Last Admin: 01/08/17 09:16 Dose: 100 mg Magnesium Hydroxide (Milk Of Magnesia) 30 ml PO HS PRN PRN Reason: Constipation Stop: 02/27/17 00:37 Multivitamins/Vitamin C (Theragran) 1 tab PO DAILY [facility] Stop: 02/27/17 08:59 Last Admin: 01/09/17 09:46 Dose: 1 tab Oxybutynin Chloride (Ditropan) 5 mg PO HS [facility] Stop: 02/27/17 20:59 Last Admin: 01/08/17 20:36 Dose: 5 mg Pantoprazole Sodium (Protonix) 40 mg PO BID [facility] Stop: 02/27/17 08:59 Last Admin: 01/09/17 09:45 Dose: 40 mg Paroxetine HCl (Paxil) 10 mg PO DAILY [facility] PRN Reason: Protocol Stop: 03/08/17 08:59 Last Admin: 01/08/17 09:08 Dose: 10 mg Quetiapine Fumarate (Seroquel) 50 mg PO BID [facility] PRN Reason: Protocol Stop: 02/27/17 08:59 Last Admin: 01/09/17 09:44 Dose: 50 mg General: alert HEENT: NC/AT, PERRLA Neck: Supple Lungs: CTAB Cardiovascular: RRR, Normal S1, Normal S2, without murmur Abdomen: soft non-tender, non-distended Extremities: clear - Procedures Procedures: Procedures Procedure Code Date GROUP PSYCHOTHERAPY 79303 12/06/15 GROUP PSYCHOTHERAPY GZHZZZZ 12/06/15 OTHER GROUP THERAPY 94.44 06/02/14 RECREATIONAL THERAPY 93.81 07/28/11 Internal Medicine Assmt/Plan - Assessment Assessment: COPD ACUTE BRONCHITIS GENERALIZED WEAKNESS ABDOMINAL PAIN HX STROKE DJD HYPERCHOLESTEREMIA SCHIZPHRENIA PARKINSONS - Plan Plan: bronchodilators as needed supplemental o2 fall precautions cpm Nutritional Asmnt/Malnutr-PDOC - Dietary Evaluation Malnutrition Findings (Please click <Entered> for more info): Nutritional Asmnt/Malnutrition Start: 01/02/17 17: 09 Text: Status: Complete Freq: Document 01/02/17 17:09 CRISTEL (Rec: 01/02/17 17:11 CRISTEL [email or web address]) Nutritional Asmnt/Malnutrition Patient General Information Nutritional Screening Moderate Risk Screening Diagnosis Psychosis Pertinent Medical Hx/Surgical Hx COPD, acute bronchitis, generalized weakness, leuokcytosis, abdominal pain, hx stroke, DJD, hypercholesteremia, schizophrenia, parkinsons Subjective Information 66 year old male. Pt was participating in group session durring visit. Spoke with nursing staff and TAFFY PULLER, pt is a questionable/poor historian, often goes off topic and is verbally inappropriate, however no nutritional concerns at this time. Avg PO intake 100% of meals, meeting nutritional needs. Current Diet Order/ Nutrition Support [facility] soft chopped Pertinent Medications Maalox, Vitamin C, Lipitor, Colace, Cephylac, MOM, Theragran, Protonix, Seroquel Pertinent Labs No current labs Nutritional Hx/Data Height 6 ft Height (Calculated Centimeters) 182.9 Current Weight (lbs) 220 lb Weight (Calculated Kilograms) 99.8 Weight (Calculated Grams) 28836.3 [place] Body Weight 178lb Weight Status Overweight GI Symptoms Food Allergies No Cultural/Ethnic/Confucianist Belief Unknown. Usual diet at home Unknown. Skin Integrity/Comment: Jani 18. Skin intact. Current %PO Good (75-100%) Estimated Nutritional Goals Calories/Kcals/Kg IBW 178lb / 80.9kg 25-30kcal/ kg Kcals Calculated 2022-2427kcal Protein g/kg: IBW 80.9kg 1g/kg Protein Calculated 81g Fluid: ml 2023-2427ml (1ml/kcal) Nutritional Problem 1. Problem Problem No nutritional problems at this time. Intervention/Recommendation Comments 1. Continue with [facility] soft chopped diet. Current PO intake is adequate. Expected Outcomes/Goals Expected Outcomes/Goals 1. PO intake continue to meet at least 75% of estimated nutritional needs.
[2017-01-09] MEDS: Atorvastatin Calcium 10 MG TAB PO SCH (20:56)
[2017-01-10] MEDS: Lactulose 10 Gm/15 mL 30mL UDC PO SCH ×4 (00:05→17:12)
--- NOTE | 2017-01-10 02:54 | Progress Notes ---
SUBJECTIVE: The patient was seen, discussed with staff, still restless and anxious. Some anger outburst, still with hypersexual behavior, but he is easy to redirect by staff and his behavior appears to be decreasing. The patient is taking his medication. Sleep is fair. His appetite is fair. His insight and impulse control is still poor. ASSESSMENT: The patient continues to stabilize in a setting. PLAN: We will continue to monitor closely. Continue supportive measures. Continue medication management. JOB# [id number]
[2017-01-10] MEDS: Ipratropium Neb 0.5 mg/2.5 mL UD HHN SCH ×4 (07:34→19:05)
[2017-01-10] MEDS: Albuterol Nebulizer 2.5mg/3mL HHN SCH ×4 (07:35→19:05)
[2017-01-10] MEDS: Benztropine 1 MG TAB PO SCH ×2 (08:43→17:11)
[2017-01-10] MEDS: Multivitamin Tab PO SCH (08:43)
[2017-01-10] MEDS: Aspirin 81mg Chewable Tab PO SCH (08:43)
[2017-01-10] MEDS: Fenofibrate, Micronized 134 mg Cap PO SCH (08:43)
[2017-01-10] MEDS: Pantoprazole 40 mg EC Tab PO SCH ×2 (08:43→17:11)
--- NOTE | 2017-01-10 10:43 | Internal Medicine Prog Note ---
Internal Medicine Subjective - Subjective Service Date: 01/10/17 Patient seen and examined:: with staff Patient is:: awake Per staff patient is:: no adverse event Internal Medicine Objective - Results Recent Labs: Laboratory Last Values PT 10.4 SECONDS (9.5-11.5) 01/03/17 12:20 INR 1.00 (0.5-1.4) 01/03/17 12:20 PTT (Actin FS) 25.1 SECONDS (26.0-38.0) L 01/03/17 12:20 Ammonia 136 umol/L (16-53) H 01/03/17 15:06 - Physical Exam Vitals and I&O: Vital Signs Temp 98.2 F 01/10/17 06:23 Pulse 69 01/10/17 08:41 Resp 18 01/10/17 07:35 BP 119/71 01/10/17 08:41 Pulse Ox 98 01/10/17 07:35 Intake & Output 01/09/17 01/10/17 01/10/17 18:59 06:59 18:59 Intake Total 1100 Balance 1100 Intake: Oral 1100 Other: # Voids 7 2 # Bowel Movements 2 0 Active Medications: Current Medications Acetaminophen (Tylenol) 650 mg PO Q4H PRN PRN Reason: PAIN OR FEVER >100.5 Stop: 02/27/17 01:43 Last Admin: 01/10/17 05:05 Dose: 650 mg Al Hydrox/Mg Hydrox/Simethicone (Maalox) 30 ml PO Q6HR PRN PRN Reason: GI DISTRESS Stop: 02/27/17 00:37 Last Admin: 12/30/16 09:21 Dose: 30 ml Albuterol Sulfate (Albuterol 2.5mg/3ml Neb Ud) 2.5 mg HHN QIDRT [facility] Stop: 02/27/17 06:59 Last Admin: 01/10/17 07:35 Dose: Not Given Ascorbic Acid (Vitamin C) 500 mg PO DAILY [facility] Stop: 02/27/17 08:59 Last Admin: 01/10/17 08:43 Dose: 500 mg Aspirin (Aspirin Chewable) 81 mg PO DAILY [facility] Stop: 02/27/17 08:59 Last Admin: 01/10/17 08:43 Dose: 81 mg Atorvastatin Calcium (Lipitor) 20 mg PO HS [facility] PRN Reason: Protocol Stop: 02/27/17 20:59 Last Admin: 01/09/17 20:56 Dose: 20 mg Benztropine Mesylate (Cogentin) 1 mg PO BID [facility] Stop: 02/27/17 08:59 Last Admin: 01/10/17 08:43 Dose: 1 mg Buspirone HCl (Buspar) 10 mg PO BID [facility]ARA PRN Reason: Protocol Stop: 02/27/17 08:59 Last Admin: 01/10/17 08:43 Dose: 10 mg Carbamazepine (Tegretol) 600 mg PO Q12HR [facility] PRN Reason: Protocol Stop: 02/27/17 08:59 Last Admin: 01/10/17 08:42 Dose: 600 mg Carbidopa/Levodopa (Sinemet 25mg-100 Mg) 1 tab PO TID [facility] Stop: 02/27/17 08:59 Last Admin: 01/10/17 08:43 Dose: 1 tab Divalproex Sodium (Depakote Dr) 500 mg PO HS [facility] PRN Reason: Protocol Stop: 02/27/17 20:59 Last Admin: 01/09/17 20:56 Dose: 500 mg Divalproex Sodium (Depakote Dr) 1,000 mg PO BID [facility] PRN Reason: Protocol Stop: 02/27/17 08:59 Last Admin: 01/10/17 08:41 Dose: 1,000 mg Docusate Sodium (Colace) 100 mg PO DAILY [facility] Stop: 02/27/17 08:59 Last Admin: 01/10/17 08:43 Dose: 100 mg Fenofibrate (Tricor) 134 mg PO DAILY [facility] Stop: 02/27/17 08:59 Last Admin: 01/10/17 08:43 Dose: 134 mg Guaifenesin (Robitussin) 200 mg PO Q4HR PRN PRN Reason: Cough or Congestion Stop: 02/27/17 00:37 Hydrocortisone (Hydrocortisone 2.5%) 1 appl TP BID [facility] Stop: 02/27/17 08:59 Last Admin: 01/10/17 08:41 Dose: 1 appl Ipratropium [place] (Atrovent Neb 0.5mg/2.5ml) 0.5 mg HHN QIDRT [facility] Stop: 02/27/17 06:59 Last Admin: 01/10/17 07:34 Dose: Not Given Lactulose (Cephulac) 40 gm PO Q6HR [facility] Stop: 02/27/17 05:59 Last Admin: 01/10/17 05:12 Dose: 40 gm Levofloxacin (Levaquin) 500 mg PO Q24H [facility] Stop: 02/27/17 17:59 Last Admin: 01/09/17 17:29 Dose: 500 mg Losartan Potassium (Cozaar) 100 mg PO DAILY [facility] Stop: 02/27/17 08:59 Last Admin: 01/10/17 08:41 Dose: 100 mg Magnesium Hydroxide (Milk Of Magnesia) 30 ml PO HS PRN PRN Reason: Constipation Stop: 02/27/17 00:37 Multivitamins/Vitamin C (Theragran) 1 tab PO DAILY [facility] Stop: 02/27/17 08:59 Last Admin: 01/10/17 08:43 Dose: 1 tab Oxybutynin Chloride (Ditropan) 5 mg PO HS [facility] Stop: 02/27/17 20:59 Last Admin: 01/09/17 20:56 Dose: 5 mg Pantoprazole Sodium (Protonix) 40 mg PO BID [facility] Stop: 02/27/17 08:59 Last Admin: 01/10/17 08:43 Dose: 40 mg Paroxetine HCl (Paxil) 10 mg PO DAILY [facility] PRN Reason: Protocol Stop: 03/08/17 08:59 Last Admin: 01/10/17 08:41 Dose: 10 mg Quetiapine Fumarate (Seroquel) 50 mg PO BID [facility]ARA PRN Reason: Protocol Stop: 02/27/17 08:59 Last Admin: 01/10/17 08:43 Dose: 50 mg General: alert HEENT: NC/AT, PERRLA Neck: Supple Lungs: CTAB Cardiovascular: RRR, Normal S1, Normal S2, without murmur Abdomen: soft non-tender, non-distended Neurological: no change - Procedures Procedures: Procedures Procedure Code Date GROUP PSYCHOTHERAPY 42723 12/06/15 GROUP PSYCHOTHERAPY GZHZZZZ 12/06/15 OTHER GROUP THERAPY 94.44 06/02/14 RECREATIONAL THERAPY 93.81 07/28/11 Internal Medicine Assmt/Plan - Assessment Assessment: COPD ACUTE BRONCHITIS GENERALIZED WEAKNESS ABDOMINAL PAIN HX STROKE DJD HYPERCHOLESTEREMIA SCHIZPHRENIA PARKINSONS - Plan Plan: swallow eval to be done bronchodilators as needed supplemental o2 fall precautions cpm Nutritional Asmnt/Malnutr-PDOC - Dietary Evaluation Malnutrition Findings (Please click <Entered> for more info): Nutritional Asmnt/Malnutrition Start: 01/02/17 17: 09 Text: Status: Complete Freq: Document 01/02/17 17:09 CRISTEL (Rec: 01/02/17 17:11 [email or web address]) Nutritional Asmnt/Malnutrition Patient General Information Nutritional Screening Moderate Risk Screening Diagnosis Psychosis Pertinent Medical Hx/Surgical Hx COPD, acute bronchitis, generalized weakness, leuokcytosis, abdominal pain, hx stroke, DJD, hypercholesteremia, schizophrenia, parkinsons Subjective Information 66 year old male. Pt was participating in group session durring visit. Spoke with nursing staff and CATALOGUE MAKER, pt is a questionable/poor historian, often goes off topic and is verbally inappropriate, however no nutritional concerns at this time. Avg PO intake 100% of meals, meeting nutritional needs. Current Diet Order/ Nutrition Support [facility] soft chopped Pertinent Medications Maalox, Vitamin C, Lipitor, Colace, Cephylac, MOM, Theragran, Protonix, Seroquel Pertinent Labs No current labs Nutritional Hx/Data Height 6 ft Height (Calculated Centimeters) 182.9 Current Weight (lbs) 220 lb Weight (Calculated Kilograms) 99.8 Weight (Calculated Grams) 83602.3 [place] Body Weight 178lb Weight Status Overweight GI Symptoms Food Allergies No Cultural/Ethnic/Restorationist Belief Unknown. Usual diet at home Unknown. Skin Integrity/Comment: Jani 18. Skin intact. Current %PO Good (75-100%) Estimated Nutritional Goals Calories/Kcals/Kg IBW 178lb / 80.9kg 25-30kcal/ kg Kcals Calculated 202-2427kcal Protein g/kg: IBW 80.9kg 1g/kg Protein Calculated 81g Fluid: ml 2023-2427ml (1ml/kcal) Nutritional Problem 1. Problem Problem No nutritional problems at this time. Intervention/Recommendation Comments 1. Continue with [facility] soft chopped diet. Current PO intake is adequate. Expected Outcomes/Goals Expected Outcomes/Goals 1. PO intake continue to meet at least 75% of estimated nutritional needs.
[2017-01-10] MEDS: Atorvastatin Calcium 10 MG TAB PO SCH (20:57)
--- NOTE | 2017-01-11 04:31 | Progress Notes ---
SUBJECTIVE: The patient was seen, discussed with staff, chart reviewed. Still anxious, angry, still irritable at times and episodes where he had sexually inappropriate behavior. His insight is still poor. Impulsivity is still high. The patient's thought process is fragmented. The patient, however, is taking his medication and has no side effects. No sedation or EPS. His sleep is fair. Appetite is fair. ASSESSMENT: The patient continues to be impulsive and irritable and continues to lack capacity for self-care. PLAN: Continue hospitalization. Continue to monitor closely. Continue supportive measures. JOB# [id number]
[2017-01-11] MEDS: Lactulose 10 Gm/15 mL 30mL UDC PO SCH ×4 (06:31→17:33)
[2017-01-11] MEDS: Ipratropium Neb 0.5 mg/2.5 mL UD HHN SCH ×4 (07:18→19:23)
[2017-01-11] MEDS: Albuterol Nebulizer 2.5mg/3mL HHN SCH ×4 (07:18→19:23)
[2017-01-11] MEDS: Pantoprazole 40 mg EC Tab PO SCH ×2 (08:38→17:32)
[2017-01-11] MEDS: Aspirin 81mg Chewable Tab PO SCH (08:42)
[2017-01-11] MEDS: Benztropine 1 MG TAB PO SCH ×2 (08:42→17:32)
[2017-01-11] MEDS: Fenofibrate, Micronized 134 mg Cap PO SCH (08:43)
[2017-01-11] MEDS: Multivitamin Tab PO SCH (08:43)
--- NOTE | 2017-01-11 11:15 | Internal Medicine Prog Note ---
Internal Medicine Subjective - Subjective Service Date: 01/11/17 Patient seen and examined:: with staff Patient is:: awake Per staff patient is:: no adverse event Internal Medicine Objective - Results Recent Labs: Laboratory Last Values PT 10.4 SECONDS (9.5-11.5) 01/03/17 12:20 INR 1.00 (0.5-1.4) 01/03/17 12:20 PTT (Actin FS) 25.1 SECONDS (26.0-38.0) L 01/03/17 12:20 Ammonia 136 umol/L (16-53) H 01/03/17 15:06 - Physical Exam Vitals and I&O: Vital Signs Temp 98.0 F 01/10/17 14:00 Pulse 74 01/11/17 08:44 Resp 18 01/11/17 07:19 BP 122/70 01/11/17 08:44 Pulse Ox 98 01/11/17 07:19 Intake & Output 01/10/17 01/11/17 01/11/17 18:59 06:59 18:59 Intake Total 1000 Balance 1000 Intake: Oral 1000 Other: # Voids 3 # Bowel Movements 1 Active Medications: Current Medications Acetaminophen (Tylenol) 650 mg PO Q4H PRN PRN Reason: PAIN OR FEVER >100.5 Stop: 02/27/17 01:43 Last Admin: 01/10/17 05:05 Dose: 650 mg Al Hydrox/Mg Hydrox/Simethicone (Maalox) 30 ml PO Q6HR PRN PRN Reason: GI DISTRESS Stop: 02/27/17 00:37 Last Admin: 12/30/16 09:21 Dose: 30 ml Albuterol Sulfate (Albuterol 2.5mg/3ml Neb Ud) 2.5 mg HHN QIDRT [facility] Stop: 02/27/17 06:59 Last Admin: 01/11/17 07:18 Dose: 2.5 mg Ascorbic Acid (Vitamin C) 500 mg PO DAILY [facility] Stop: 02/27/17 08:59 Last Admin: 01/11/17 08:40 Dose: 500 mg Aspirin (Aspirin Chewable) 81 mg PO DAILY [facility] Stop: 02/27/17 08:59 Last Admin: 01/11/17 08:42 Dose: 81 mg Atorvastatin Calcium (Lipitor) 20 mg PO HS [facility] PRN Reason: Protocol Stop: 02/27/17 20:59 Last Admin: 01/10/17 20:57 Dose: 20 mg Benztropine Mesylate (Cogentin) 1 mg PO BID [facility] Stop: 02/27/17 08:59 Last Admin: 01/11/17 08:42 Dose: 1 mg Buspirone HCl (Buspar) 10 mg PO BID [facility] PRN Reason: Protocol Stop: 02/27/17 08:59 Last Admin: 01/11/17 08:42 Dose: 10 mg Carbamazepine (Tegretol) 600 mg PO Q12HR [facility] PRN Reason: Protocol Stop: 02/27/17 08:59 Last Admin: 01/11/17 08:40 Dose: 600 mg Carbidopa/Levodopa (Sinemet 25mg-100 Mg) 1 tab PO TID [facility] Stop: 02/27/17 08:59 Last Admin: 01/11/17 08:39 Dose: 1 tab Divalproex Sodium (Depakote Dr) 500 mg PO HS [facility] PRN Reason: Protocol Stop: 02/27/17 20:59 Last Admin: 01/10/17 20:57 Dose: 500 mg Divalproex Sodium (Depakote Dr) 1,000 mg PO BID [facility] PRN Reason: Protocol Stop: 02/27/17 08:59 Last Admin: 01/11/17 08:38 Dose: 1,000 mg Docusate Sodium (Colace) 100 mg PO DAILY [facility] Stop: 02/27/17 08:59 Last Admin: 01/11/17 08:41 Dose: 100 mg Fenofibrate (Tricor) 134 mg PO DAILY [facility] Stop: 02/27/17 08:59 Last Admin: 01/11/17 08:43 Dose: 134 mg Guaifenesin (Robitussin) 200 mg PO Q4HR PRN PRN Reason: Cough or Congestion Stop: 02/27/17 00:37 Hydrocortisone (Hydrocortisone 2.5%) 1 appl TP BID [facility] Stop: 02/27/17 08:59 Last Admin: 01/11/17 08:45 Dose: 1 appl Ipratropium [place] (Atrovent Neb 0.5mg/2.5ml) 0.5 mg HHN QIDRT [facility] Stop: 02/27/17 06:59 Last Admin: 01/11/17 07:18 Dose: 0.5 mg Lactulose (Cephulac) 40 gm PO Q6HR [facility] Stop: 02/27/17 05:59 Last Admin: 01/11/17 06:31 Dose: 40 gm Levofloxacin (Levaquin) 500 mg PO Q24H [facility] Stop: 02/27/17 17:59 Last Admin: 01/10/17 17:13 Dose: 500 mg Losartan Potassium (Cozaar) 100 mg PO DAILY [facility] Stop: 02/27/17 08:59 Last Admin: 01/11/17 08:44 Dose: 100 mg Magnesium Hydroxide (Milk Of Magnesia) 30 ml PO HS PRN PRN Reason: Constipation Stop: 02/27/17 00:37 Multivitamins/Vitamin C (Theragran) 1 tab PO DAILY [facility] Stop: 02/27/17 08:59 Last Admin: 01/11/17 08:43 Dose: 1 tab Oxybutynin Chloride (Ditropan) 5 mg PO HS [facility] Stop: 02/27/17 20:59 Last Admin: 01/10/17 20:57 Dose: 5 mg Pantoprazole Sodium (Protonix) 40 mg PO BID [facility] Stop: 02/27/17 08:59 Last Admin: 01/11/17 08:38 Dose: 40 mg Paroxetine HCl (Paxil) 10 mg PO DAILY [facility] PRN Reason: Protocol Stop: 03/08/17 08:59 Last Admin: 01/11/17 08:41 Dose: 10 mg Quetiapine Fumarate (Seroquel) 50 mg PO BID [facility] PRN Reason: Protocol Stop: 02/27/17 08:59 Last Admin: 01/11/17 08:43 Dose: 50 mg General: alert HEENT: NC/AT, PERRLA Neck: Supple Lungs: CTAB Cardiovascular: RRR, Normal S1, without murmur Abdomen: soft non-tender, non-distended - Procedures Procedures: Procedures Procedure Code Date GROUP PSYCHOTHERAPY 04254 12/06/15 GROUP PSYCHOTHERAPY GZHZZZZ 12/06/15 OTHER GROUP THERAPY 94.44 06/02/14 RECREATIONAL THERAPY 93.81 07/28/11 Internal Medicine Assmt/Plan - Assessment Assessment: COPD ACUTE BRONCHITIS GENERALIZED WEAKNESS ABDOMINAL PAIN HX STROKE DJD HYPERCHOLESTEREMIA SCHIZPHRENIA PARKINSONS - Plan Plan: bronchodilators as needed supplemental o2 fall precautions cpm Nutritional Asmnt/Malnutr-PDOC - Dietary Evaluation Malnutrition Findings (Please click <Entered> for more info): Nutritional Asmnt/Malnutrition Start: 01/02/17 17: 09 Text: Status: Complete Freq: Document 01/02/17 17:09 CRISTEL (Rec: 01/02/17 17:11 CRISTEL [email or web address]) Nutritional Asmnt/Malnutrition Patient General Information Nutritional Screening Moderate Risk Screening Diagnosis Psychosis Pertinent Medical Hx/Surgical Hx COPD, acute bronchitis, generalized weakness, leuokcytosis, abdominal pain, hx stroke, DJD, hypercholesteremia, schizophrenia, parkinsons Subjective Information 66 year old male. Pt was participating in group session durring visit. Spoke with nursing staff and AIRCRAFT OR[employer]NCE SYSTEMS MECHANIC, pt is a questionable/poor historian, often goes off topic and is verbally inappropriate, however no nutritional concerns at this time. Avg PO intake 100% of meals, meeting nutritional needs. Current Diet Order/ Nutrition Support [facility] soft chopped Pertinent Medications Maalox, Vitamin C, Lipitor, Colace, Cephylac, MOM, Theragran, Protonix, Seroquel Pertinent Labs No current labs Nutritional Hx/Data Height 6 ft Height (Calculated Centimeters) 182.9 Current Weight (lbs) 220 lb Weight (Calculated Kilograms) 99.8 Weight (Calculated Grams) 96778.3 [place] Body Weight 178lb Weight Status Overweight GI Symptoms Food Allergies No Cultural/Ethnic/Mu-Ism Belief Unknown. Usual diet at home Unknown. Skin Integrity/Comment: Jani 18. Skin intact. Current %PO Good (75-100%) Estimated Nutritional Goals Calories/Kcals/Kg IBW 178lb / 80.9kg 25-30kcal/ kg Kcals Calculated 2022-2427kcal Protein g/kg: IBW 80.9kg 1g/kg Protein Calculated 81g Fluid: ml 2022-2427ml (1ml/kcal) Nutritional Problem 1. Problem Problem No nutritional problems at this time. Intervention/Recommendation Comments 1. Continue with the [facility] soft chopped diet. Current PO intake is adequate. Expected Outcomes/Goals Expected Outcomes/Goals 1. PO intake continue to meet at least 75% of estimated nutritional needs.
[2017-01-11] MEDS: Atorvastatin Calcium 10 MG TAB PO SCH (20:27)
--- NOTE | 2017-01-12 05:18 | Progress Notes ---
SUBJECTIVE: I met this patient, discussed with staff, chart reviewed, less hypersexual behavior, less angry, less agitation. Sleep is fair, taking his medications. His vital signs are stable. His appetite is fair. The patient, however, continues to be impaired and continues to require assistance and he continues to have some anger outburst. ASSESSMENT: The patient's condition slowly stabilizing, possible discharge over the next 1-2 days. PSYCHIATRIC# [id number]
[2017-01-12] MEDS: Lactulose 10 Gm/15 mL 30mL UDC PO SCH ×4 (06:12→17:37)
[2017-01-12] MEDS: Albuterol Nebulizer 2.5mg/3mL HHN SCH ×3 (08:05→16:11)
[2017-01-12] MEDS: Ipratropium Neb 0.5 mg/2.5 mL UD HHN SCH ×3 (08:05→16:11)
[2017-01-12] MEDS: Aspirin 81mg Chewable Tab PO SCH (08:37)
[2017-01-12] MEDS: Benztropine 1 MG TAB PO SCH ×2 (08:40→17:35)
[2017-01-12] MEDS: Multivitamin Tab PO SCH (08:40)
[2017-01-12] MEDS: Fenofibrate, Micronized 134 mg Cap PO SCH (08:41)
[2017-01-12] MEDS: Pantoprazole 40 mg EC Tab PO SCH ×2 (08:41→17:35)
--- NOTE | 2017-01-12 12:37 | Internal Medicine Prog Note ---
Internal Medicine Subjective - Subjective Patient seen and examined:: with staff, chart reviewed Patient is:: awake, verbal, interactive, talking Per staff patient is:: no episodes of fall, eating well, noncompliant, confused Internal Medicine Objective - Results Recent Labs: Laboratory Last Values PT 10.4 SECONDS (9.5-11.5) 01/03/17 12:20 INR 1.00 (0.5-1.4) 01/03/17 12:20 PTT (Actin FS) 25.1 SECONDS (26.0-38.0) L 01/03/17 12:20 Ammonia 136 umol/L (16-53) H 01/03/17 15:06 - Physical Exam Vitals and I&O: Vital Signs Temp 98.2 F 01/12/17 11:31 Pulse 78 01/12/17 11:31 Resp 20 01/12/17 11:31 BP 111/60 01/12/17 11:31 Pulse Ox 98 01/12/17 11:31 Intake & Output 01/11/17 01/12/17 01/12/17 18:59 06:59 18:59 Intake Total 1000 Balance 1000 Intake: Oral 1000 Other: # Voids 3 # Bowel Movements 1 Active Medications: Current Medications Acetaminophen (Tylenol) 650 mg PO Q4H PRN PRN Reason: PAIN OR FEVER >100.5 Stop: 02/27/17 01:43 Last Admin: 01/10/17 05:05 Dose: 650 mg Al Hydrox/Mg Hydrox/Simethicone (Maalox) 30 ml PO Q6HR PRN PRN Reason: GI DISTRESS Stop: 02/27/17 00:37 Last Admin: 12/30/16 09:21 Dose: 30 ml Albuterol Sulfate (Albuterol 2.5mg/3ml Neb Ud) 2.5 mg HHN QIDRT [facility] Stop: 02/27/17 06:59 Last Admin: 01/12/17 08:05 Dose: Not Given Ascorbic Acid (Vitamin C) 500 mg PO DAILY [facility] Stop: 02/27/17 08:59 Last Admin: 01/12/17 08:41 Dose: 500 mg Aspirin (Aspirin Chewable) 81 mg PO DAILY [facility] Stop: 02/27/17 08:59 Last Admin: 01/12/17 08:37 Dose: 81 mg Atorvastatin Calcium (Lipitor) 20 mg PO HS [facility]ARA PRN Reason: Protocol Stop: 02/27/17 20:59 Last Admin: 01/11/17 20:27 Dose: 20 mg Benztropine Mesylate (Cogentin) 1 mg PO BID [facility] Stop: 02/27/17 08:59 Last Admin: 01/12/17 08:40 Dose: 1 mg Buspirone HCl (Buspar) 10 mg PO BID [facility]ARA PRN Reason: Protocol Stop: 02/27/17 08:59 Last Admin: 01/12/17 08:40 Dose: 10 mg Carbamazepine (Tegretol) 600 mg PO Q12HR [facility] PRN Reason: Protocol Stop: 02/27/17 08:59 Last Admin: 01/12/17 08:37 Dose: 600 mg Carbidopa/Levodopa (Sinemet 25mg-100 Mg) 1 tab PO TID [facility] Stop: 02/27/17 08:59 Last Admin: 01/12/17 08:40 Dose: 1 tab Divalproex Sodium (Depakote Dr) 500 mg PO HS [facility] PRN Reason: Protocol Stop: 02/27/17 20:59 Last Admin: 01/11/17 20:28 Dose: 500 mg Divalproex Sodium (Depakote Dr) 1,000 mg PO BID [facility] PRN Reason: Protocol Stop: 02/27/17 08:59 Last Admin: 01/12/17 08:37 Dose: 1,000 mg Docusate Sodium (Colace) 100 mg PO DAILY [facility] Stop: 02/27/17 08:59 Last Admin: 01/12/17 08:40 Dose: 100 mg Fenofibrate (Tricor) 134 mg PO DAILY [facility] Stop: 02/27/17 08:59 Last Admin: 01/12/17 08:41 Dose: 134 mg Guaifenesin (Robitussin) 200 mg PO Q4HR PRN PRN Reason: Cough or Congestion Stop: 02/27/17 00:37 Hydrocortisone (Hydrocortisone 2.5%) 1 appl TP BID [facility] Stop: 02/27/17 08:59 Last Admin: 01/12/17 08:44 Dose: 1 appl Ipratropium [place] (Atrovent Neb 0.5mg/2.5ml) 0.5 mg HHN QIDRT [facility] Stop: 02/27/17 06:59 Last Admin: 01/12/17 08:05 Dose: Not Given Lactulose (Cephulac) 40 gm PO Q6HR [facility] Stop: 02/27/17 05:59 Last Admin: 01/12/17 12:23 Dose: Not Given Levofloxacin (Levaquin) 500 mg PO Q24H [facility] Stop: 02/27/17 17:59 Last Admin: 01/11/17 17:32 Dose: 500 mg Losartan Potassium (Cozaar) 100 mg PO DAILY [facility] Stop: 02/27/17 08:59 Last Admin: 01/12/17 08:39 Dose: Not Given Magnesium Hydroxide (Milk Of Magnesia) 30 ml PO HS PRN PRN Reason: Constipation Stop: 02/27/17 00:37 Multivitamins/Vitamin C (Theragran) 1 tab PO DAILY [facility] Stop: 02/27/17 08:59 Last Admin: 01/12/17 08:40 Dose: 1 tab Oxybutynin Chloride (Ditropan) 5 mg PO HS [facility] Stop: 02/27/17 20:59 Last Admin: 01/11/17 20:28 Dose: 5 mg Pantoprazole Sodium (Protonix) 40 mg PO BID [facility] Stop: 02/27/17 08:59 Last Admin: 01/12/17 08:41 Dose: 40 mg Paroxetine HCl (Paxil) 10 mg PO DAILY [facility] PRN Reason: Protocol Stop: 03/08/17 08:59 Last Admin: 01/12/17 08:37 Dose: 10 mg Quetiapine Fumarate (Seroquel) 50 mg PO BID [facility]ARA PRN Reason: Protocol Stop: 02/27/17 08:59 Last Admin: 01/12/17 08:40 Dose: 50 mg General: demented HEENT: NC/AT, PERRLA Neck: Supple, No JVD, No LAD Lungs: CTAB Cardiovascular: RRR, Normal S1, Normal S2 Abdomen: soft non-tender, globular, positive bowel sound Extremities: excoriation, contracture Neurological: disorganized, unable to follow command - Procedures Procedures: Procedures Procedure Code Date GROUP PSYCHOTHERAPY 11666 12/06/15 GROUP PSYCHOTHERAPY GZHZZZZ 12/06/15 OTHER GROUP THERAPY 94.44 06/02/14 RECREATIONAL THERAPY 93.81 07/28/11 Internal Medicine Assmt/Plan - Assessment Assessment: COPD ACUTE BRONCHITIS GENERALIZED WEAKNESS LEUKOCYTOSIS ABDOMINAL PAIN HX STROKE DJD HYPERCHOLESTEREMIA SCHIZPHRENIA PARKINSONS - Plan Plan: cont on o2 bronchodilator fall precaution cont on sinemet dw rn Nutritional Asmnt/Malnutr-PDOC - Dietary Evaluation Malnutrition Findings (Please click <Entered> for more info): Nutritional Asmnt/Malnutrition Start: 01/02/17 17: 09 Text: Status: Complete Freq: Document 01/02/17 17:09 CRISTEL (Rec: 01/02/17 17:11 [email or web address] [email or web address]) Nutritional Asmnt/Malnutrition Patient General Information Nutritional Screening Moderate Risk Screening Diagnosis Psychosis Pertinent Medical Hx/Surgical Hx COPD, acute bronchitis, generalized weakness, leuokcytosis, abdominal pain, hx stroke, DJD, hypercholesteremia, schizophrenia, parkinsons Subjective Information 66 year old male. Pt was participating in group session durring visit. Spoke with nursing staff and HEAD SILVERMAN, pt is a questionable/poor historian, often goes off topic and is verbally inappropriate, however no nutritional concerns at this time. Avg PO intake 100% of meals, meeting nutritional needs. Current Diet Order/ Nutrition Support [facility] soft chopped Pertinent Medications Maalox, Vitamin C, Lipitor, Colace, Cephylac, MOM, Theragran, Protonix, Seroquel Pertinent Labs No current labs Nutritional Hx/Data Height 1.83 m Height (Calculated Centimeters) 182.9 Current Weight (lbs) 99.79 kg Weight (Calculated Kilograms) 99.8 Weight (Calculated Grams) 85827.3 [place] Body Weight 178lb Weight Status Overweight GI Symptoms Food Allergies No Cultural/Ethnic/Jewish Belief Unknown. Usual diet at home Unknown. Skin Integrity/Comment: Jani 18. Skin intact. Current %PO Good (75-100%) Estimated Nutritional Goals Calories/Kcals/Kg IBW 178lb / 80.9kg 25-30kcal/ kg Kcals Calculated 202-2427kcal Protein g/kg: IBW 80.9kg 1g/kg Protein Calculated 81g Fluid: ml 2022-2427ml (1ml/kcal) Nutritional Problem 1. Problem Problem No nutritional problems at this time. Intervention/Recommendation Comments 1. Continue with [facility] soft chopped diet. Current PO intake is adequate. Expected Outcomes/Goals Expected Outcomes/Goals 1. PO intake continue to meet at least 75% of estimated nutritional needs.
--- NOTE | 2017-01-12 23:08 | Discharge Summary ---
REASON FOR HOSPITALIZATION: Schizoaffective disorder, psychotic phase, possible dementia ____. HISTORY OF PRESENT ILLNESS: The patient is a 66-year-old male, who was sent from his fdc facility for increased agitation, depression, irritability, hypersexual behavior, poor impulse control. The patient was admitted to the medical floor, then transferred to the Geropsychiatric unit ____. HOSPITALIZATION COURSE: Medications were implemented. The patient initially was refusing care, but then he started to comply with the Seroquel. The patient did not have any side effects. At times, he was noted to be depressed, although at times he was noted to be hypersexual and trying to masturbate or disrobe in public. Paxil was added to help with depressive symptoms and anxiety symptoms, and he was continued with Seroquel. Condition improved over time, agitation resolved, hypersexual behaviors subsided down, so on 01/12/2017, the patient was discharged back to his facility. FINAL DIAGNOSES: Schizoaffective disorder ____ dementia, Alzheimer's type. Medical, history of cerebrovascular accident, hypertension, gastroesophageal reflux disease, osteoarthritis. CONDITION ON DISCHARGE: Improved. No agitation. Poor sleep and appetite. No suicidal thoughts. DISPOSITION: The patient was discharged to his fdc, [facility]. EXPECTED COURSE OF RECOVERY: The patient with chronic condition. [facility]# [id number]
== END 2017-01-12 19:00 | DRG 885 ==
LOC: UNDOADMIN 23:35 → GERO 23:35
DX: F25.9 Schizoaffective disorder, unspecified (principal); G20 Parkinson's disease; J44.0 Chronic obstructive pulmonary disease with (acute) lower respiratory infection; F02.80 Dementia in other diseases classified elsewhere, unspecified severity, without behavioral disturbance, psychotic disturbance, mood disturbance, and anxiety; G30.9 Alzheimer's disease, unspecified; M19.90 Unspecified osteoarthritis, unspecified site; I10 Essential (primary) hypertension; G40.909 Epilepsy, unspecified, not intractable, without status epilepticus; J20.9 Acute bronchitis, unspecified; R53.1 Weakness; D72.829 Elevated white blood cell count, unspecified; R10.9 Unspecified abdominal pain; E78.00 Pure hypercholesterolemia, unspecified; K21.9 Gastro-esophageal reflux disease without esophagitis; Z86.73 Personal history of transient ischemic attack (TIA), and cerebral infarction without residual deficits
CPT/HCPCS: 36415-UA; 82140-TC; 85610-TC; 90779; 90899; 94640; 94760; G0410; J1644; J1956; J7613; X3401; Z7610

== ENCOUNTER 2017-06-29 15:55 | Emergency (ER) | payer MEDICARE, MEDICAID ==
[2017-06-29 16:19] LABS: % BASOPHILS 0.4 % (0.0-2.0); % LYMPHOCYTES 36.1 % (20.0-50.0); % MONOCYTES 8.6 % (2.0-10.0); % NEUTROPHILS 46.9 % (40.0-80.0); HEMOGLOBIN 14.6 gm/dL (13.2-17.3); MEAN CELL VOLUME 96.1 fl (80-99); MEAN CORPUSCULAR HEMOGLOBIN 32.6 pg (26.0-30.0); MEAN CORPUSCULAR HGB CONC 33.9 pg (28.0-36.0); NEUTROPHILE ABSOLUTE 1.9 Th/cmm (1.8-8.0); PLATELET COUNT 192 Th/cmm (150-400); RED BLOOD COUNT 4.47 Mil/cmm (4.30-5.70); RED CELL DISTRIBUTION WIDTH 14.2 % (11.5-20.0); WHITE BLOOD COUNT 4.1 Th/cmm (4.8-10.8)
[2017-06-29 16:35] LABS: ALB/GLOB RATIO 1.2 (1.0-1.8); ALKALINE PHOSPHATASE 42 U/L (34-104); BILIRUBIN,TOTAL 0.4 mg/dL (0.3-1.0); BUN - UREA NITROGEN 13 mg/dL (7-25); BUN/CREATININE RATIO 16.3; CALCIUM SERUM 9.6 mg/dL (8.6-10.3); CARBON DIOXIDE 24.9 mEq/L (21.0-31.0); CHLORIDE 103 mEq/L (98-107); CREATININE - SERUM 0.8 mg/dL (0.7-1.3); GLUCOSE 131 mg/dL (70-105); POTASSIUM SERUM 3.9 mEq/L (3.5-5.1); SGOT 13 U/L (13-39); SGPT/ALT 9 U/L (7-52); SODIUM SERUM 132 mEq/L (136-145)
--- NOTE | 2017-06-29 16:55 | ED Physician Chart ---
Chief Complaint/HPI - Patient Information Date Seen:: 06/29/17 Time Seen:: 16:13 Chief Complaint:: URINE SMELLS BAD History of Present Illness:: THIS IS A CHRONICALLY DISABLED SENIOR LIVING PATIENT SENT HERE FOR EVALUATION AND TREATMENT FOR HIS FOWL SMELLING URINE. THE PATIENT DENIES URINARY INFECTION SYMPTOMS. HE DENIES FEVER, NAUSEA AND VOMITING. HE IS A PSYCH PATIENT WITH HTN AND DEMENTIA. Allergies:: Allergies Allergy/AdvReac Type Severity Reaction Status Date / Time Penicillins Allergy Verified 12/25/16 21:30 Vitals:: Vital Signs - 8 hr 06/29/17 16:02 Temp 98.1 F HR 68 RR 17 BP 142/71 O2 Sat % 94 Historian:: Medical Records Review:: Nurse's Note Reviewed, Old Chart Reviewed, Transfer documents Reviewed Review of Systems - Review of Systems General/Constitutional: No fever, No chills, No weight loss, No weakness, No diaphoresis, No edema, No loss of appetite, Other (THE REVIEW OF SYSTEM IS NOT RELIABLE) Skin: No skin lesions, No rash, No bruising Head: No headache, No light-headedness Eyes: No loss of vision, No pain, No diplopia ENT: No earache, No nasal drainage, No sore throat, No tinnitus Neck: No neck pain, No swelling, No thyromegaly, No stiffness, No mass noted Cardio Vascular: No chest pain, No palpitations, No PND, No orthopnea, No edema Pulmonary: No SOB, No cough, No sputum, No wheezing GI: No nausea, No vomiting, No diarrhea, No pain, No melena, No hematochezia, No constipation, No hematemesis G/U: No dysuria, No frequency, No hematuria Musculoskeletal: No bone or joint pain, No back pain, No muscle pain Endocrine: No polyuria, No polydipsia Psychiatric: No prior psych history, No depression, No anxiety, No suicidal ideation Hematopoietic: No bruising, No lymphadenopathy Allergic/Immuno: No urticaria, No angioedema Neurological: No syncope, No focal symptoms, No weakness, No paresthesia, No headache, No seizure, No dizziness, No confusion, No vertigo Past Medical History - Past Medical History Obtainable: Yes Past Medical History: HTN, Asthma/COPD, Dyslipidemia, Seizures, Dementia, Cataract Family History: None Social History: Non Smoker, No Alcohol, No Drug Use Surgical History: other (NECK SURGERY) Psychiatricy History: Schizophrenia, Dementia Medication: Reviewed Family Medical History - Family Member Mother History Unknown: Yes Physical Exam - Physical Examination General/Constitutional: Awake, Well-developed, well-nourished, Alert, No distress, GCS 15, Non-toxic appearing, Ambulatory Other Gen/Cons comments:: POOR SPEAKING WITH INTERMITTENT CONFUSION, AND GENERALIZED WEAKNESS. Head: Atraumatic Eyes: Lids, conjuctiva normal, PERRL, EOMI Skin: Nl inspection, No rash, No skin lesions, No ecchymosis, Well hydrated, No lymphadenopathy ENMT: External ears, nose nl, Nasal exam nl, Lips, teeth, gums nl Neck: Nontender, Full ROM w/o pain, No JVD, No nuchal rigidity, No bruit, No mass, No stridor Respiratory: Nl effort/Exclusion, Clear to Auscultation, No Wheeze/Rhonchi/Rales Cardio Vascular: RRR, No murmur, gallop, rubs, NL S1 S2 GI: No tenderness/rebounding/guarding, No organomegaly, No hernia, Normal BS's, Nondistended, No mass/bruits, No McBurney tenderness : No CVA tenderness Extremities: No tenderness or effusion, Full ROM, normal strength in all extremities, No edema, Normal digits & nails Neuro/Psych: Alert/oriented, DTR's symmetric, Normal sensory exam, Normal motor strength (LEFT LOWER EXTREMITY WEAKNESS ), Judgement/insight normal, Mood normal , Normal gait, No focal deficits Misc: normal gait, Normal back, No paraspinal tenderness Labs/Radiology/EKG Results - Lab Results Results: Laboratory Tests 06/29/17 06/29/17 06/29/17 16:13 16:13 16:13 WBC 4.1 L RBC 4.47 Hgb 14.6 Hct 43.0 MCV 96.1 MCH 32.6 H MCHC Differential 33.9 RDW 14.2 Plt Count 192 MPV 8.0 Neutrophils % 46.9 Lymphocytes % 36.1 Monocytes % 8.6 Eosinophils % 8.0 H Basophils % 0.4 Sodium 132 L Potassium 3.9 Chloride 103 Carbon Dioxide 24.9 Anion Gap 8.0 BUN 13 Creatinine 0.8 Est GFR ( Amer) > 60.0 Est GFR (Non-Af Amer) > 60.0 BUN/Creatinine Ratio 16.3 Glucose 131 H Calcium 9.6 Total Bilirubin 0.4 AST 13 ALT 9 Alkaline Phosphatase 42 Troponin I 0.01 Total Protein 7.3 Albumin 3.9 L Globulin 3.4 Albumin/Globulin Ratio 1.2 - EKG Interpretations EKG Time:: 16:07 Rate & Rhythm: RATE=66 NSR [place]: LEFT Assessment - Assessment General Assessment: URINARY TRACT INFECTION ED Septic Shock - . Is Septic Shock (SBP<90, OR Lactate>4 mmol\L) present?: No - <6hrs of presentation: Vital Signs: Vital Signs - 8 hr 06/29/17 16:02 Temp 98.1 F HR 68 RR 17 BP 142/71 O2 Sat % 94 Reassessment (Disposition) - Reassessment Reassessment Condition:: Unchanged - Aftercare/Follow up Instructions Aftercare/Follow-Up Instructions:: Counseled pt regarding lab results/diagnosis & need follow up, Refer to Discharge Instructions, Counseled pt & family regarding lab results/diagnosis & need follow up - Patient Disposition Discharge/Transfer:: Home
[2017-06-29 17:30] LABS: URINE BILIRUBIN NEGATIVE (NEGATIVE); URINE BLOOD NEGATIVE (NEGATIVE); URINE GLUCOSE (UA) NEGATIVE (NEGATIVE); URINE KETONE NEGATIVE (NEGATIVE); URINE PROTEIN NEGATIVE (NEGATIVE)
[2017-06-29 18:03] LABS: URINE COLOR YELLOW; URINE RBC NONE SEEN /hpf (0-5); URINE WBC NONE SEEN /hpf (0-5)
[2017-06-29 18:04] LABS: URINE BACTERIA NONE SEEN /hpf (NONE SEEN); URINE EPITHELIAL CELLS NONE SEEN /lpf (FEW)
--- NOTE | 2017-06-30 08:11 | Diagnostic Imaging Report ---
Portable chest x-ray Time: 1619 History: Pain Allowing for portable technique the heart size is normal. No focal pulmonary parenchymal processes. No hilar or mediastinal abnormalities. Mild blunting left costophrenic angle appreciated might be due to positioning or pleural thickening Impression: No acute abnormalities.
== END 2017-06-29 20:20 ==
LOC: ER 15:55
DX: N39.0 Urinary tract infection, site not specified (principal); I10 Essential (primary) hypertension; J44.9 Chronic obstructive pulmonary disease, unspecified; J45.909 Unspecified asthma, uncomplicated; G40.909 Epilepsy, unspecified, not intractable, without status epilepticus; E78.5 Hyperlipidemia, unspecified
CPT/HCPCS: 36415-UA; 71010-TC; 80053-TC; 81001-TC; 84443-TC; 84484-TC; 85025-TC; 93005

== ENCOUNTER 2017-07-19 16:02 | Inpatient (IN) | payer MEDICARE, MEDICAID ==
[2017-07-19 16:46] LABS: % BASOPHILS 0.1 % (0.0-2.0); % EOSINOPHILS 4.2 % (0.0-5.0); % LYMPHOCYTES 21.2 % (20.0-50.0); % MONOCYTES 7.9 % (2.0-10.0); % NEUTROPHILS 66.6 % (40.0-80.0); HEMATOCRIT 43.3 % (41.0-60); HEMOGLOBIN 14.5 gm/dL (12-16); MEAN CELL VOLUME 97.9 fl (80-99); MEAN CORPUSCULAR HEMOGLOBIN 32.7 pg (26.0-30.0); MEAN CORPUSCULAR HGB CONC 33.4 pg (28.0-36.0); MEAN PLATELET VOLUME 8.5 fl; NEUTROPHILE ABSOLUTE 4.2 Th/cmm (1.8-8.0); PLATELET COUNT 172 Th/cmm (150-400); RED BLOOD COUNT 4.42 Mil/cmm (4.30-5.70)
[2017-07-19 16:55] LABS: WHITE BLOOD COUNT 6.4 Th/cmm (4.8-10.8)
--- NOTE | 2017-07-19 17:06 | ED Physician Chart ---
ED Chief Complaint/HPI - Patient Information Date Seen:: 07/19/17 Time Seen:: 14:15 Chief Complaint:: abnormal labs History of Present Illness:: Patient had a serum ammonia level of 118 on labs drawn at his senior living facility. Allergies:: Allergies Allergy/AdvReac Type Severity Reaction Status Date / Time Penicillins Allergy Verified 07/19/17 16:51 Vitals:: Vital Signs - 8 hr 07/19/17 16:41 Temp 98.1 F HR 63 RR 16 BP 99/56 O2 Sat % 94 Historian:: Patient, EMS Review:: Nurse's Note Reviewed ED Review of Systems - Review of Systems General/Constitutional: No fever Skin: No skin lesions Head: No headache Eyes: No loss of vision ENT: No earache Neck: No neck pain Cardio Vascular: No chest pain, No palpitations Pulmonary: No SOB GI: No nausea, No vomiting G/U: No dysuria, No frequency Musculoskeletal: No bone or joint pain Endocrine: No polyuria Psychiatric: Prior psych history Hematopoietic: No bruising Allergic/Immuno: Urticaria Neurological: No syncope ED Past Medical History - Past Medical History Past Medical History: HTN, Dyslipidemia, PUD/GERD, Seizures, Arthritis, Other ( Parkinson's disease; hyperlipidemia) Family History: Diabetes Melitus Social History: Smoker Surgical History: None Psychiatricy History: Other (schizoaffective disorder) Medication: Reviewed Family Medical History - Family Member Mother History Unknown: Yes ED Physical Exam - Physical Examination Other Gen/Cons comments:: Chronically ill-appearing; in no acute distress Head: Atraumatic Eyes: Lids, conjuctiva normal Skin: Nl inspection, No rash ENMT: External ears, nose nl, TM canals nl Neck: No nuchal rigidity Respiratory: Nl effort/Exclusion Other Respiratory comments:: Prolonged expirations Cardio Vascular: RRR GI: No tenderness/rebounding/guarding, No organomegaly : No CVA tenderness Extremities: No tenderness or effusion Other Neuro/Psych comments:: Slight decreased hand grasp and left leg lack of coordination; slight droop in the left corner of mouth Misc: Normal back ED Labs/Radiology/EKG Results - Lab Results Results: Laboratory Tests 07/19/17 16:36 WBC 6.4 D RBC 4.42 Hgb 14.5 Hct 43.3 MCV 97.9 MCH 32.7 H MCHC Differential 33.4 RDW 14.0 Plt Count 172 MPV 8.5 Neutrophils % 66.6 Lymphocytes % 21.2 Monocytes % 7.9 Eosinophils % 4.2 Basophils % 0.1 Laboratory Results - last 24 hr 07/19/17 07/19/17 07/19/17 16:36 16:36 16:36 WBC 6.4 D RBC 4.42 Hgb 14.5 Hct 43.3 MCV 97.9 MCH 32.7 H MCHC Differential 33.4 RDW 14.0 Plt Count 172 MPV 8.5 Neutrophils % 66.6 Lymphocytes % 21.2 Monocytes % 7.9 Eosinophils % 4.2 Basophils % 0.1 Sodium 134 L Potassium 3.8 Chloride 101 Carbon Dioxide 29.7 Anion Gap 7.1 BUN 14 Creatinine 0.8 Est GFR ( Amer) > 60.0 Est GFR (Non-Af Amer) > 60.0 BUN/Creatinine Ratio 17.5 Glucose 109 H Calcium 9.5 Total Bilirubin 0.4 Direct Bilirubin 0.10 AST 12 L ALT < 3 L Alkaline Phosphatase 36 Ammonia 126 H Total Protein 6.9 Albumin 4.0 L Globulin 2.9 Albumin/Globulin Ratio 1.4 Valproic Acid 51.0 Carbamazepine 8.7 ED Septic Shock - . Is Septic Shock (SBP<90, OR Lactate>4 mmol\L) present?: No - <6hrs of presentation: Vital Signs: Vital Signs - 8 hr 07/19/17 16:41 Temp 98.1 F HR 63 RR 16 BP 99/56 O2 Sat % 94 ED Reassessment (Disposition) - Reassessment Reassessment Condition:: Unchanged - Diagnosis Diagnosis:: Altered mental status; elevated ammonia; left hemiparesis - Patient Disposition Admitted to:: Med/Surg Spoke to:: Juno Harden Admitting Medical Physician:: Juno Harden Condition at Disposition:: Stable, Unchanged
[2017-07-19 17:07] LABS: ALB/GLOB RATIO 1.4 (1.0-1.8); ALKALINE PHOSPHATASE 36 U/L (34-104); ANION GAP 7.1 (7.0-16.0); BILIRUBIN,TOTAL 0.4 mg/dL (0.3-1.0); BUN - UREA NITROGEN 14 mg/dL (7-25); BUN/CREATININE RATIO 17.5; CALCIUM SERUM 9.5 mg/dL (8.6-10.3); CARBON DIOXIDE 29.7 mEq/L (21.0-31.0); CHLORIDE 101 mEq/L (98-107); CREATININE - SERUM 0.8 mg/dL (0.7-1.3); GLUCOSE 109 mg/dL (70-105); POTASSIUM SERUM 3.8 mEq/L (3.5-5.1); SGOT 12 U/L (13-39); SODIUM SERUM 134 mEq/L (136-145)
[2017-07-19] MEDS ORDERED: Lactulose 10 Gm/15 mL 30mL UDC PO STA (17:08)
[2017-07-19 17:22] LABS: SGPT/ALT < 3 U/L (7-52)
[2017-07-19] MEDS ORDERED: Lactulose 10 Gm/15 mL 30mL UDC ONE (18:48)
[2017-07-19] MEDS: D5-0.45NS 1,000 ML IV SCH (20:35)
[2017-07-19] MEDS: guaiFENesin 200 MG/10 ML UDC PO PRN (20:40)
[2017-07-19 21:12] VITALS: BP 133/75
[2017-07-20] MEDS: Lactulose 10 Gm/15 mL 30mL UDC PO SCH ×4 (01:36→17:11)
[2017-07-20] MEDS: Aspirin 81mg Chewable Tab PO SCH (09:17)
[2017-07-20] MEDS: Benztropine 1 MG TAB PO SCH ×2 (09:17→16:24)
[2017-07-20] MEDS: Pantoprazole 40 mg EC Tab PO SCH ×2 (09:17→16:24)
[2017-07-20] MEDS: D5-0.45NS 1,000 ML IV SCH ×2 (09:28→21:19)
[2017-07-20] MEDS ORDERED: VTE Chemical Prophylaxis Screen/Admission MC PRN (11:39)
--- NOTE | 2017-07-20 11:50 | Internal Medicine Prog Note ---
Internal Medicine Subjective - Subjective Service Date: 07/20/17 ([facility] [id number]) Internal Medicine Objective - Results Result Diagrams: 07/19/17 16:36 07/19/17 16:36 Recent Labs: Laboratory Last Values WBC 6.4 Th/cmm (4.8-10.8) D 07/19/17 16:36 RBC 4.42 Mil/cmm (4.30-5.70) 07/19/17 16:36 Hgb 14.5 gm/dL (12-16) 07/19/17 16:36 Hct 43.3 % (41.0-60) 07/19/17 16:36 MCV 97.9 fl (80-99) 07/19/17 16:36 MCH 32.7 pg (26.0-30.0) H 07/19/17 16:36 MCHC Differential 33.4 pg (28.0-36.0) 07/19/17 16:36 RDW 14.0 % (11.5-20.0) 07/19/17 16:36 Plt Count 172 Th/cmm (150-400) 07/19/17 16:36 MPV 8.5 fl 07/19/17 16:36 Neutrophils % 66.6 % (40.0-80.0) 07/19/17 16:36 Lymphocytes % 21.2 % (20.0-50.0) 07/19/17 16:36 Monocytes % 7.9 % (2.0-10.0) 07/19/17 16:36 Eosinophils % 4.2 % (0.0-5.0) 07/19/17 16:36 Basophils % 0.1 % (0.0-2.0) 07/19/17 16:36 Sodium 134 mEq/L (136-145) L 07/19/17 16:36 Potassium 3.8 mEq/L (3.5-5.1) 07/19/17 16:36 Chloride 101 mEq/L (98-107) 07/19/17 16:36 Carbon Dioxide 29.7 mEq/L (21.0-31.0) 07/19/17 16:36 Anion Gap 7.1 (7.0-16.0) 07/19/17 16:36 BUN 14 mg/dL (7-25) 07/19/17 16:36 Creatinine 0.8 mg/dL (0.7-1.3) 07/19/17 16:36 Est GFR ( Amer) > 60.0 ml/min (>90) 07/19/17 16:36 Est GFR (Non-Af Amer) > 60.0 ml/min 07/19/17 16:36 BUN/Creatinine Ratio 17.5 07/19/17 16:36 Glucose 109 mg/dL (70-105) H 07/19/17 16:36 Calcium 9.5 mg/dL (8.6-10.3) 07/19/17 16:36 Total Bilirubin 0.4 mg/dL (0.3-1.0) 07/19/17 16:36 Direct Bilirubin 0.10 mg/dL (0.0-0.2) 07/19/17 16:36 AST 12 U/L (13-39) L 07/19/17 16:36 ALT < 3 U/L (7-52) L 07/19/17 16:36 Alkaline Phosphatase 36 U/L (34-104) 07/19/17 16:36 Ammonia 126 umol/L (16-53) H 07/19/17 16:36 Total Protein 6.9 gm/dL (6.0-8.3) 07/19/17 16:36 Albumin 4.0 gm/dL (4.2-5.5) L 07/19/17 16:36 Globulin 2.9 gm/dL 07/19/17 16:36 Albumin/Globulin Ratio 1.4 (1.0-1.8) 07/19/17 16:36 Valproic Acid 51.0 ug/mL (50.0-100.0) 07/19/17 16:36 Carbamazepine 8.7 ug/ml (4.0-12.0) 07/19/17 16:36 - Physical Exam Vitals and I&O: Vital Signs Temp 97.6 F 07/20/17 08:00 Pulse 58 07/20/17 09:15 Resp 18 07/20/17 08:15 BP 141/84 07/20/17 09:15 Pulse Ox 94 07/20/17 08:00 Intake & Output 07/19/17 07/20/17 07/20/17 18:59 06:59 18:59 Intake Total 350 1000 Output Total 400 Balance -50 1000 Weight (lbs) 228 lb 1 oz Intake: Intake, IV Amount 1000 D5-0.45NS 1,000 ml @ 80 1000 mls/hr IV .[id number] [facility] Rx #:[id number] Oral 350 Output: Urine 400 Other: # Voids 1 # Bowel Movements 0 Active Medications: Current Medications Aspirin (Aspirin Chewable) 81 mg PO DAILY DARA Stop: 09/18/17 08:59 Last Admin: 07/20/17 09:17 Dose: 81 mg Benztropine Mesylate (Cogentin) 1 mg PO BID DARA Stop: 09/18/17 08:59 Last Admin: 07/20/17 09:17 Dose: 1 mg Buspirone HCl (Buspar) 10 mg PO BID DARA PRN Reason: Protocol Stop: 09/18/17 08:59 Last Admin: 07/20/17 09:16 Dose: 10 mg Carbamazepine (Tegretol) 600 mg PO Q12HR DARA PRN Reason: Protocol Stop: 09/17/17 20:59 Last Admin: 07/20/17 09:17 Dose: 600 mg Carbidopa/Levodopa (Sinemet 25mg-100 Mg) 1 tab PO TID DARA Stop: 09/17/17 20:59 Last Admin: 07/20/17 09:15 Dose: 1 tab Divalproex Sodium (Depakote Dr) 1,000 mg PO BID DARA PRN Reason: Protocol Stop: 09/18/17 08:59 Last Admin: 07/20/17 09:16 Dose: 1,000 mg Divalproex Sodium (Depakote Dr) 500 mg PO HS DARA PRN Reason: Protocol Stop: 09/17/17 20:59 Last Admin: 07/19/17 20:36 Dose: 500 mg Docusate Sodium (Colace) 100 mg PO DAILY [facility] Stop: 09/18/17 08:59 Last Admin: 07/20/17 09:16 Dose: 100 mg Guaifenesin (Robitussin) 200 mg PO Q4HR PRN PRN Reason: Cough or Congestion Stop: 09/17/17 19:57 Last Admin: 07/19/17 20:40 Dose: 200 mg Dextrose/Sodium Chloride (D5-0.45ns) 1,000 mls @ 80 mls/hr IV .[id number] [facility] Stop: 09/17/17 19:59 Last Admin: 07/20/17 09:28 Dose: 80 mls/hr Lactulose (Cephulac) 30 gm PO Q6HR DARA Stop: 09/18/17 00:00 Last Admin: 07/20/17 11:34 Dose: Not Given Losartan Potassium (Cozaar) 100 mg PO DAILY DARA Stop: 09/18/17 08:59 Last Admin: 07/20/17 09:15 Dose: 100 mg Miscellaneous (Vte [employer] Prophylaxis Screen/ Admission) 1 ea [facility] PRN PRN PRN Reason: PROTOCOL Stop: 09/18/17 11:38 Ondansetron HCl (Zofran) 4 mg IV Q8H PRN PRN Reason: Nausea / Vomiting Stop: 09/17/17 19:57 Oxybutynin Chloride (Ditropan) 5 mg PO HS DARA Stop: 09/17/17 20:59 Last Admin: 07/19/17 20:37 Dose: 5 mg Pantoprazole Sodium (Protonix) 40 mg PO BID DARA Stop: 09/18/17 08:59 Last Admin: 07/20/17 09:17 Dose: 40 mg Paroxetine HCl (Paxil) 10 mg PO DAILY DARA PRN Reason: Protocol Stop: 09/18/17 08:59 Last Admin: 07/20/17 09:17 Dose: 10 mg Quetiapine Fumarate (Seroquel) 50 mg PO BID DARA PRN Reason: Protocol Stop: 09/18/17 08:59 Last Admin: 07/20/17 09:16 Dose: 50 mg - Procedures Procedures: Procedures Procedure Code Date GROUP PSYCHOTHERAPY 72724 12/06/15 GROUP PSYCHOTHERAPY [id number] 12/06/15 OTHER GROUP THERAPY 94.44 06/02/14 RECREATIONAL THERAPY 93.81 07/28/11 Internal Medicine Assmt/Plan - Assessment Assessment: ALOC Elevated Ammonia Generalized Weakness hypercholesteremia djd schizoaffective parkinson's
--- NOTE | 2017-07-20 13:29 | History & Physical ---
ADMIT DATE: 07/19/2017 CHIEF COMPLAINT: High ammonia level. HISTORY OF PRESENT ILLNESS: This is a 66-year-old male who is a resident of [facility] who was brought here to [facility] for elevated ammonia. Upon examination, the patient is awake, alert with confusion in no apparent distress. PAST MEDICAL HISTORY: CVA, DJD, hypercholesterolemia, schizoaffective disorder, Parkinson's. PAST SURGICAL HISTORY: EDUCATION PROGRAM COORDINATOR shunt, craniotomy. ALLERGIES: PENICILLIN. MEDICATIONS: Tylenol, aspirin, Lipitor, Cogentin, Sinemet, Depakote, lactulose, magnesium, multivitamin, Ditropan, BuSpar. FAMILY HISTORY: Noncontributory. SOCIAL HISTORY: The [facility] is a [facility] resident, requiring 24-hour nursing care. PHYSICAL EXAMINATION: GENERAL: The patient appears obese, in no apparent distress. VITAL SIGNS: Temperature 97.6, heart rate ____, respiration 18, blood pressure 111/64. HEENT: Normocephalic, atraumatic. NECK: Supple. No mass. LUNGS: Clear bilaterally rhythm. ABDOMEN: Soft, nontender. LABORATORY DATA: WBC 6.4, H and H 14.5 and 43.5, platelet 172. Sodium 134, potassium ____, chloride 101, BUN 14, creatinine 0.8, ammonia level 126. ASSESSMENT: Altered level of consciousness, elevated ammonia, generalized weakness, degenerative joint disease, hypercholesterolemia, schizoaffective disorder, Parkinson's. PLAN: We will monitor the patient's ammonia level. Keep the patient on IV fluids for hydration. We will get a Psych consult as well. We will continue to monitor the patient. JOB# [id number]
[2017-07-20 14:17] LABS: ANION GAP 7.8 (7.0-16.0); BUN - UREA NITROGEN 11 mg/dL (7-25); BUN/CREATININE RATIO 15.7; CALCIUM SERUM 8.9 mg/dL (8.6-10.3); CHLORIDE 103 mEq/L (98-107); CREATININE - SERUM 0.7 mg/dL (0.7-1.3); GLUCOSE 147 mg/dL (70-105); POTASSIUM SERUM 3.8 mEq/L (3.5-5.1); SODIUM SERUM 134 mEq/L (136-145)
[2017-07-20] MEDS: guaiFENesin 200 MG/10 ML UDC PO PRN (21:11)
--- NOTE | 2017-07-20 23:03 | Consultation ---
DATE OF CONSULTATION: 07/20/2017 The patient was seen, chart reviewed, discussed with staff. HISTORY OF PRESENT ILLNESS: The patient is a 66-year-old male with a history of dementia and schizoaffective disorder, currently on medical floor, has been somewhat anxious, restless, some episodes of yelling, but for the most part has been passively cooperative with staff. The patient does not appear to be depressed. PAST PSYCHIATRIC HISTORY: Prior hospitalizations, history of agitation. PAST MEDICAL HISTORY: As per H and P. 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 PSYCHOSOCIAL HISTORY: The patient resides at [facility] and requires complete care. MENTAL STATUS EXAMINATION: The patient is cooperative, some delayed responses. Speech is dysarthric. Minimal few words. Some word-finding difficulty at times. The patient is guarded, irritable, but does not appear to be depressed. He is oriented to person, knew he is in the hospital, did not know the name of the hospital, not oriented to time. ASSESSMENT: Dementia, not otherwise specified versus vascular type and schizoaffective disorder. PLAN: At this time, would recommend continuation of medical supportive measures. We will decrease Cogentin to 0.5 mg p.o. b.i.d. to decrease any episodes of confusion related to anticholinergic activity. Consider inpatient Geropsychiatric hospitalization. We will follow closely. Thank you for the consultation. JOB# [id number]
[2017-07-21] MEDS: Lactulose 10 Gm/15 mL 30mL UDC PO SCH ×5 (00:13→23:50)
[2017-07-21 06:14] LABS: % BASOPHILS 0.1 % (0.0-2.0); % LYMPHOCYTES 23.2 % (20.0-50.0); HEMATOCRIT 39.4 % (41.0-60); HEMOGLOBIN 13.2 gm/dL (12-16); MEAN CELL VOLUME 96.9 fl (80-99); MEAN CORPUSCULAR HEMOGLOBIN 32.4 pg (26.0-30.0); NEUTROPHILE ABSOLUTE 4.5 Th/cmm (1.8-8.0); RED BLOOD COUNT 4.07 Mil/cmm (4.30-5.70)
[2017-07-21 06:37] LABS: % EOSINOPHILS 3.8 % (0.0-5.0); % MONOCYTES 8.3 % (2.0-10.0); % NEUTROPHILS 64.6 % (40.0-80.0); MEAN CORPUSCULAR HGB CONC 33.4 pg (28.0-36.0); MEAN PLATELET VOLUME 8.4 fl; PLATELET COUNT 146 Th/cmm (150-400); RED CELL DISTRIBUTION WIDTH 13.7 % (11.5-20.0)
[2017-07-21 06:40] LABS: ANION GAP 6.9 (7.0-16.0); BUN - UREA NITROGEN 8 mg/dL (7-25); BUN/CREATININE RATIO 11.4; CALCIUM SERUM 8.3 mg/dL (8.6-10.3); CARBON DIOXIDE 28.8 mEq/L (21.0-31.0); CHLORIDE 99 mEq/L (98-107); CREATININE - SERUM 0.7 mg/dL (0.7-1.3); GLUCOSE 95 mg/dL (70-105); POTASSIUM SERUM 3.7 mEq/L (3.5-5.1); SODIUM SERUM 131 mEq/L (136-145)
[2017-07-21] MEDS: Pantoprazole 40 mg EC Tab PO SCH ×2 (10:00→16:28)
[2017-07-21] MEDS: Aspirin 81mg Chewable Tab PO SCH (10:01)
[2017-07-21] MEDS: Benztropine 1 MG TAB PO SCH ×2 (10:06→16:28)
[2017-07-21] MEDS: D5-0.45NS 1,000 ML IV SCH (11:58)
--- NOTE | 2017-07-21 15:14 | Internal Medicine Prog Note ---
Internal Medicine Subjective - Subjective Service Date: 07/21/17 Patient seen and examined:: with staff Patient is:: awake Per staff patient has:: no adverse event, tolerating meds Internal Medicine Objective - Results Result Diagrams: 07/21/17 06:01 07/21/17 06:01 Recent Labs: Laboratory Last Values WBC 7.0 Th/cmm (4.8-10.8) 07/21/17 06:01 RBC 4.07 Mil/cmm (4.30-5.70) L 07/21/17 06:01 Hgb 13.2 gm/dL (12-16) 07/21/17 06:01 Hct 39.4 % (41.0-60) L 07/21/17 06:01 MCV 96.9 fl (80-99) 07/21/17 06:01 MCH 32.4 pg (26.0-30.0) H 07/21/17 06:01 MCHC Differential 33.4 pg (28.0-36.0) 07/21/17 06:01 RDW 13.7 % (11.5-20.0) 07/21/17 06:01 Plt Count 146 Th/cmm (150-400) L 07/21/17 06:01 MPV 8.4 fl 07/21/17 06:01 Neutrophils % 64.6 % (40.0-80.0) 07/21/17 06:01 Lymphocytes % 23.2 % (20.0-50.0) 07/21/17 06:01 Monocytes % 8.3 % (2.0-10.0) 07/21/17 06:01 Eosinophils % 3.8 % (0.0-5.0) 07/21/17 06:01 Basophils % 0.1 % (0.0-2.0) 07/21/17 06:01 Sodium 131 mEq/L (136-145) L 07/21/17 06:01 Potassium 3.7 mEq/L (3.5-5.1) 07/21/17 06:01 Chloride 99 mEq/L (98-107) 07/21/17 06:01 Carbon Dioxide 28.8 mEq/L (21.0-31.0) 07/21/17 06:01 Anion Gap 6.9 (7.0-16.0) L 07/21/17 06:01 BUN 8 mg/dL (7-25) 07/21/17 06:01 Creatinine 0.7 mg/dL (0.7-1.3) 07/21/17 06:01 Est GFR ( Amer) > 60.0 ml/min (>90) 07/21/17 06:01 Est GFR (Non-Af Amer) > 60.0 ml/min 07/21/17 06:01 BUN/Creatinine Ratio 11.4 07/21/17 06:01 Glucose 95 mg/dL (70-105) 07/21/17 06:01 Calcium 8.3 mg/dL (8.6-10.3) L 07/21/17 06:01 Total Bilirubin 0.4 mg/dL (0.3-1.0) 07/19/17 16:36 Direct Bilirubin 0.10 mg/dL (0.0-0.2) 07/19/17 16:36 AST 12 U/L (13-39) L 07/19/17 16:36 ALT < 3 U/L (7-52) L 07/19/17 16:36 Alkaline Phosphatase 36 U/L (34-104) 07/19/17 16:36 Ammonia 95 umol/L (16-53) H 07/21/17 06:01 Total Protein 6.9 gm/dL (6.0-8.3) 07/19/17 16:36 Albumin 4.0 gm/dL (4.2-5.5) L 07/19/17 16:36 Globulin 2.9 gm/dL 07/19/17 16:36 Albumin/Globulin Ratio 1.4 (1.0-1.8) 07/19/17 16:36 Valproic Acid 51.0 ug/mL (50.0-100.0) 07/19/17 16:36 Carbamazepine 8.7 ug/ml (4.0-12.0) 07/19/17 16:36 - Physical Exam Vitals and I&O: Vital Signs Temp 97.1 F 07/21/17 12:00 Pulse 60 07/21/17 12:00 Resp 20 07/21/17 12:00 BP 121/79 07/21/17 12:00 Pulse Ox 97 07/21/17 12:00 Intake & Output 0907/21/17 07/21/17 18:59 06:59 18:59 Intake Total 9545 359 3077 Output Total 550 Balance 0245 224 6006 Weight (lbs) 228 lb 236 lb 4.8 oz Intake: Intake, IV Amount 2670 577 2688 D5-0.45NS 1,000 ml @ 80 4493 111 4741 mls/hr IV .[id number] [facility] Rx #:[id number] Oral 850 Output: Urine 550 Other: # Voids 2 # Bowel Movements 6 1 Stool Characteristics Soft Active Medications: Current Medications Aspirin (Aspirin Chewable) 81 mg PO DAILY [facility] Stop: 09/18/17 08:59 Last Admin: 07/21/17 10:01 Dose: 81 mg Benztropine Mesylate (Cogentin) 0.5 mg PO BID [facility] Stop: 09/18/17 17:39 Last Admin: 07/21/17 10:06 Dose: 0.5 mg Buspirone HCl (Buspar) 10 mg PO BID [facility] PRN Reason: Protocol Stop: 09/18/17 08:59 Last Admin: 07/21/17 10:00 Dose: 10 mg Carbamazepine (Tegretol) 600 mg PO Q12HR [facility] PRN Reason: Protocol Stop: 09/17/17 20:59 Last Admin: 07/21/17 10:00 Dose: 600 mg Carbidopa/Levodopa (Sinemet 25mg-100 Mg) 1 tab PO TID [facility] Stop: 09/17/17 20:59 Last Admin: 07/21/17 13:53 Dose: 1 tab Divalproex Sodium (Depakote Dr) 1,000 mg PO BID [facility] PRN Reason: Protocol Stop: 09/18/17 08:59 Last Admin: 07/21/17 10:07 Dose: 1,000 mg Divalproex Sodium (Depakote Dr) 500 mg PO HS [facility] PRN Reason: Protocol Stop: 09/17/17 20:59 Last Admin: 07/20/17 21:11 Dose: 500 mg Docusate Sodium (Colace) 100 mg PO DAILY [facility] Stop: 09/18/17 08:59 Last Admin: 07/21/17 10:02 Dose: 100 mg Guaifenesin (Robitussin) 200 mg PO Q4HR PRN PRN Reason: Cough or Congestion Stop: 09/17/17 19:57 Last Admin: 07/20/17 21:11 Dose: 200 mg Dextrose/Sodium Chloride (D5-0.45ns) 1,000 mls @ 80 mls/hr IV .[id number] [facility] Stop: 09/17/17 19:59 Last Admin: 07/21/17 11:58 Dose: 80 mls/hr Lactulose (Cephulac) 30 gm PO Q6HR [facility] Stop: 09/18/17 00:00 Last Admin: 07/21/17 11:57 Dose: 30 gm Losartan Potassium (Cozaar) 100 mg PO DAILY [facility] Stop: 09/18/17 08:59 Last Admin: 07/21/17 10:02 Dose: 100 mg Miscellaneous (Vte Chemical Prophylaxis Screen/ Admission) 1 ea [facility] PRN PRN PRN Reason: PROTOCOL Stop: 09/18/17 11:38 Ondansetron HCl (Zofran) 4 mg IV Q8H PRN PRN Reason: Nausea / Vomiting Stop: 09/17/17 19:57 Oxybutynin Chloride (Ditropan) 5 mg PO HS [facility] Stop: 09/17/17 20:59 Last Admin: 07/20/17 21:11 Dose: 5 mg Pantoprazole Sodium (Protonix) 40 mg PO BID [facility] Stop: 09/18/17 08:59 Last Admin: 07/21/17 10:00 Dose: 40 mg Paroxetine HCl (Paxil) 10 mg PO DAILY [facility] PRN Reason: Protocol Stop: 09/18/17 08:59 Last Admin: 07/21/17 10:02 Dose: 10 mg Quetiapine Fumarate (Seroquel) 50 mg PO BID [facility] PRN Reason: Protocol Stop: 09/18/17 08:59 Last Admin: 07/21/17 10:00 Dose: 50 mg General: weak, alert HEENT: NC/AT, PERRLA Neck: Supple Lungs: CTAB Cardiovascular: RRR, Normal S1, Normal S2, without murmur Abdomen: soft, non-tender, non-distended, positive bowel sound Extremities: clear, excoriation Neurological: no change - Procedures Procedures: Procedures Procedure Code Date GROUP PSYCHOTHERAPY 94201 12/06/15 GROUP PSYCHOTHERAPY GZHZZZZ 12/06/15 OTHER GROUP THERAPY 94.44 06/02/14 RECREATIONAL THERAPY 93.81 07/28/11 Internal Medicine Assmt/Plan - Assessment Assessment: ALOC Elevated Ammonia Generalized Weakness hypercholesteremia djd schizoaffective parkinson's - Plan Plan: MONITOR AMMONIA LEVEL IVF FOR HYDRATION AM LABS CONTINUE CURRENT PLAN OF CARE
[2017-07-22] MEDS: D5-0.45NS 1,000 ML IV SCH (04:03)
[2017-07-22 05:18] LABS: % BASOPHILS 0.2 % (0.0-2.0); % EOSINOPHILS 5.4 % (0.0-5.0); % LYMPHOCYTES 35.5 % (20.0-50.0); % MONOCYTES 8.7 % (2.0-10.0); % NEUTROPHILS 50.2 % (40.0-80.0); HEMATOCRIT 40.3 % (41.0-60); HEMOGLOBIN 13.6 gm/dL (12-16); MEAN CELL VOLUME 97.5 fl (80-99); MEAN CORPUSCULAR HEMOGLOBIN 32.8 pg (26.0-30.0); MEAN CORPUSCULAR HGB CONC 33.7 pg (28.0-36.0); MEAN PLATELET VOLUME 8.2 fl; NEUTROPHILE ABSOLUTE 2.5 Th/cmm (1.8-8.0); PLATELET COUNT 165 Th/cmm (150-400); RED BLOOD COUNT 4.13 Mil/cmm (4.30-5.70)
[2017-07-22 05:36] LABS: ANION GAP 7.2 (7.0-16.0); BUN - UREA NITROGEN 8 mg/dL (7-25); BUN/CREATININE RATIO 11.4; CALCIUM SERUM 8.4 mg/dL (8.6-10.3); CARBON DIOXIDE 27.6 mEq/L (21.0-31.0); CHLORIDE 96 mEq/L (98-107); CREATININE - SERUM 0.7 mg/dL (0.7-1.3); GLUCOSE 95 mg/dL (70-105); POTASSIUM SERUM 3.8 mEq/L (3.5-5.1); SODIUM SERUM 127 mEq/L (136-145)
[2017-07-22] MEDS: Lactulose 10 Gm/15 mL 30mL UDC PO SCH ×3 (06:14→17:09)
[2017-07-22] MEDS: Pantoprazole 40 mg EC Tab PO SCH ×2 (09:31→16:10)
[2017-07-22] MEDS: Benztropine 1 MG TAB PO SCH ×2 (09:31→16:11)
[2017-07-22] MEDS: Aspirin 81mg Chewable Tab PO SCH (09:32)
[2017-07-22] MEDS: D5-0.9%NS 1,000 ML IV SCH (12:12)
--- NOTE | 2017-07-22 14:58 | Internal Medicine Prog Note ---
Internal Medicine Subjective - Subjective Service Date: 07/22/17 Patient is:: awake Per staff patient has:: no adverse event, tolerating meds Internal Medicine Objective - Results Result Diagrams: 07/22/17 05:00 07/22/17 05:00 Recent Labs: Laboratory Last Values WBC 5.0 Th/cmm (4.8-10.8) D 07/22/17 05:00 RBC 4.13 Mil/cmm (4.30-5.70) L 07/22/17 05:00 Hgb 13.6 gm/dL (12-16) 07/22/17 05:00 Hct 40.3 % (41.0-60) L 07/22/17 05:00 MCV 97.5 fl (80-99) 07/22/17 05:00 MCH 32.8 pg (26.0-30.0) H 07/22/17 05:00 MCHC Differential 33.7 pg (28.0-36.0) 07/22/17 05:00 RDW 14.0 % (11.5-20.0) 07/22/17 05:00 Plt Count 165 Th/cmm (150-400) 07/22/17 05:00 MPV 8.2 fl 07/22/17 05:00 Neutrophils % 50.2 % (40.0-80.0) 07/22/17 05:00 Lymphocytes % 35.5 % (20.0-50.0) 07/22/17 05:00 Monocytes % 8.7 % (2.0-10.0) 07/22/17 05:00 Eosinophils % 5.4 % (0.0-5.0) H 07/22/17 05:00 Basophils % 0.2 % (0.0-2.0) 07/22/17 05:00 Sodium 127 mEq/L (136-145) L 07/22/17 05:00 Potassium 3.8 mEq/L (3.5-5.1) 07/22/17 05:00 Chloride 96 mEq/L (98-107) L 07/22/17 05:00 Carbon Dioxide 27.6 mEq/L (21.0-31.0) 07/22/17 05:00 Anion Gap 7.2 (7.0-16.0) 07/22/17 05:00 BUN 8 mg/dL (7-25) 07/22/17 05:00 Creatinine 0.7 mg/dL (0.7-1.3) 07/22/17 05:00 Est GFR ( Amer) > 60.0 ml/min (>90) 07/22/17 05:00 Est GFR (Non-Af Amer) > 60.0 ml/min 07/22/17 05:00 BUN/Creatinine Ratio 11.4 07/22/17 05:00 Glucose 95 mg/dL (70-105) 07/22/17 05:00 Calcium 8.4 mg/dL (8.6-10.3) L 07/22/17 05:00 Total Bilirubin 0.4 mg/dL (0.3-1.0) 07/19/17 16:36 Direct Bilirubin 0.10 mg/dL (0.0-0.2) 07/19/17 16:36 AST 12 U/L (13-39) L 07/19/17 16:36 ALT < 3 U/L (7-52) L 07/19/17 16:36 Alkaline Phosphatase 36 U/L (34-104) 07/19/17 16:36 Ammonia 95 umol/L (16-53) H 07/21/17 06:01 Total Protein 6.9 gm/dL (6.0-8.3) 07/19/17 16:36 Albumin 4.0 gm/dL (4.2-5.5) L 07/19/17 16:36 Globulin 2.9 gm/dL 07/19/17 16:36 Albumin/Globulin Ratio 1.4 (1.0-1.8) 07/19/17 16:36 Valproic Acid 51.0 ug/mL (50.0-100.0) 07/19/17 16:36 Carbamazepine 8.7 ug/ml (4.0-12.0) 07/19/17 16:36 - Physical Exam Vitals and I&O: Vital Signs Temp 97.8 F 07/22/17 11:55 Pulse 63 07/22/17 11:55 Resp 20 07/22/17 11:55 BP 139/81 07/22/17 11:55 Pulse Ox 95 07/22/17 11:55 Intake & Output 07/21/17 07/22/17 07/22/17 18:59 06:59 18:59 Intake Total 1600 1100 Output Total 250 0 Balance 1350 1100 Weight (lbs) 236 lb 236 lb Intake: Intake, IV Amount 1000 1000 D5-0.45NS 1,000 ml @ 80 1000 1000 mls/hr IV .[id number] [facility] Rx #:[id number] Oral 600 100 Output: Urine 250 Stool 0 Other: # Voids 250 4 # Bowel Movements 0 Stool Characteristics Soft Soft Soft Active Medications: Current Medications Aspirin (Aspirin Chewable) 81 mg PO DAILY [facility] Stop: 09/18/17 08:59 Last Admin: 07/22/17 09:32 Dose: 81 mg Benztropine Mesylate (Cogentin) 0.5 mg PO BID [facility] Stop: 09/18/17 17:39 Last Admin: 07/22/17 09:31 Dose: 0.5 mg Buspirone HCl (Buspar) 10 mg PO BID [facility] PRN Reason: Protocol Stop: 09/18/17 08:59 Last Admin: 07/22/17 09:30 Dose: 10 mg Carbamazepine (Tegretol) 600 mg PO Q12HR [facility] PRN Reason: Protocol Stop: 09/17/17 20:59 Last Admin: 07/22/17 09:31 Dose: 600 mg Carbidopa/Levodopa (Sinemet 25mg-100 Mg) 1 tab PO TID [facility] Stop: 09/17/17 20:59 Last Admin: 07/22/17 13:05 Dose: 1 tab Divalproex Sodium (Depakote Dr) 1,000 mg PO BID [facility] PRN Reason: Protocol Stop: 09/18/17 08:59 Last Admin: 07/22/17 09:31 Dose: 1,000 mg Divalproex Sodium (Depakote Dr) 500 mg PO HS [facility] PRN Reason: Protocol Stop: 09/17/17 20:59 Last Admin: 07/21/17 20:33 Dose: 500 mg Docusate Sodium (Colace) 100 mg PO DAILY [facility] Stop: 09/18/17 08:59 Last Admin: 07/22/17 09:32 Dose: 100 mg Guaifenesin (Robitussin) 200 mg PO Q4HR PRN PRN Reason: Cough or Congestion Stop: 09/17/17 19:57 Last Admin: 07/20/17 21:11 Dose: 200 mg Dextrose/Sodium Chloride (D5-0.9%Ns) 1,000 mls @ 80 mls/hr IV .[id number] [facility] Stop: 09/20/17 11:59 Last Admin: 07/22/17 12:12 Dose: 80 mls/hr Lactulose (Cephulac) 30 gm PO Q6HR [facility] Stop: 09/18/17 00:00 Last Admin: 07/22/17 11:38 Dose: 30 gm Losartan Potassium (Cozaar) 100 mg PO DAILY [facility] Stop: 09/18/17 08:59 Last Admin: 07/22/17 09:32 Dose: 100 mg Miscellaneous (Vte Chemical Prophylaxis Screen/ Admission) 1 ea [facility] PRN PRN PRN Reason: PROTOCOL Stop: 09/18/17 11:38 Ondansetron HCl (Zofran) 4 mg IV Q8H PRN PRN Reason: Nausea / Vomiting Stop: 09/17/17 19:57 Oxybutynin Chloride (Ditropan) 5 mg PO HS [facility] Stop: 09/17/17 20:59 Last Admin: 07/21/17 20:33 Dose: 5 mg Pantoprazole Sodium (Protonix) 40 mg PO BID [facility] Stop: 09/18/17 08:59 Last Admin: 07/22/17 09:31 Dose: 40 mg Paroxetine HCl (Paxil) 10 mg PO DAILY [facility] PRN Reason: Protocol Stop: 09/18/17 08:59 Last Admin: 07/22/17 09:32 Dose: 10 mg Quetiapine Fumarate (Seroquel) 50 mg PO BID [facility] PRN Reason: Protocol Stop: 09/18/17 08:59 Last Admin: 07/22/17 09:32 Dose: 50 mg General: weak, alert HEENT: NC/AT, PERRLA Neck: Supple Lungs: CTAB Cardiovascular: RRR, Normal S1, Normal S2, without murmur Abdomen: soft, non-tender, non-distended, positive bowel sound Extremities: clear, excoriation Neurological: no change - Procedures Procedures: Procedures Procedure Code Date GROUP PSYCHOTHERAPY 09207 12/06/15 GROUP PSYCHOTHERAPY GZHZZZZ 12/06/15 OTHER GROUP THERAPY 94.44 06/02/14 RECREATIONAL THERAPY 93.81 07/28/11 Internal Medicine Assmt/Plan - Assessment Assessment: ALOC Elevated Ammonia Generalized Weakness hypercholesteremia djd schizoaffective parkinson's - Plan Plan: MONITOR AMMONIA LEVEL IVF FOR HYDRATION AM LABS CONTINUE CURRENT PLAN OF CARE
[2017-07-22] MEDS: guaiFENesin 200 MG/10 ML UDC PO PRN (20:46)
[2017-07-23] MEDS: D5-0.9%NS 1,000 ML IV SCH ×2 (01:29→17:47)
[2017-07-23] MEDS: Lactulose 10 Gm/15 mL 30mL UDC PO SCH ×4 (01:36→17:43)
[2017-07-23 06:19] LABS: % BASOPHILS 0.2 % (0.0-2.0); % EOSINOPHILS 5.6 % (0.0-5.0); % LYMPHOCYTES 30.8 % (20.0-50.0); % MONOCYTES 8.9 % (2.0-10.0); % NEUTROPHILS 54.5 % (40.0-80.0); HEMATOCRIT 42.3 % (41.0-60); HEMOGLOBIN 13.9 gm/dL (12-16); MEAN CELL VOLUME 96.4 fl (80-99); MEAN CORPUSCULAR HEMOGLOBIN 31.8 pg (26.0-30.0); MEAN PLATELET VOLUME 8.2 fl; NEUTROPHILE ABSOLUTE 2.7 Th/cmm (1.8-8.0); PLATELET COUNT 170 Th/cmm (150-400); RED BLOOD COUNT 4.39 Mil/cmm (4.30-5.70); RED CELL DISTRIBUTION WIDTH 13.9 % (11.5-20.0); WHITE BLOOD COUNT 4.9 Th/cmm (4.8-10.8)
[2017-07-23 06:25] LABS: ANION GAP 8.6 (7.0-16.0); BUN - UREA NITROGEN 6 mg/dL (7-25); CALCIUM SERUM 8.5 mg/dL (8.6-10.3); CARBON DIOXIDE 27.1 mEq/L (21.0-31.0); CHLORIDE 98 mEq/L (98-107); CREATININE - SERUM 0.6 mg/dL (0.7-1.3); GLUCOSE 97 mg/dL (70-105); POTASSIUM SERUM 3.7 mEq/L (3.5-5.1); SODIUM SERUM 130 mEq/L (136-145)
[2017-07-23] MEDS: Pantoprazole 40 mg EC Tab PO SCH ×2 (08:52→16:18)
[2017-07-23] MEDS: Benztropine 1 MG TAB PO SCH ×2 (08:53→16:19)
[2017-07-23] MEDS: Aspirin 81mg Chewable Tab PO SCH (08:53)
[2017-07-23] MEDS: guaiFENesin 200 MG/10 ML UDC PO PRN (12:28)
--- NOTE | 2017-07-23 13:28 | Internal Medicine Prog Note ---
Internal Medicine Subjective - Subjective Service Date: 07/23/17 Patient is:: awake Per staff patient has:: no adverse event, tolerating meds Internal Medicine Objective - Results Result Diagrams: 07/23/17 05:30 07/23/17 05:30 Recent Labs: Laboratory Last Values WBC 4.9 Th/cmm (4.8-10.8) 07/23/17 05:30 RBC 4.39 Mil/cmm (4.30-5.70) 07/23/17 05:30 Hgb 13.9 gm/dL (12-16) 07/23/17 05:30 Hct 42.3 % (41.0-60) 07/23/17 05:30 MCV 96.4 fl (80-99) 07/23/17 05:30 MCH 31.8 pg (26.0-30.0) H 07/23/17 05:30 MCHC Differential 33.0 pg (28.0-36.0) 07/23/17 05:30 RDW 13.9 % (11.5-20.0) 07/23/17 05:30 Plt Count 170 Th/cmm (150-400) 07/23/17 05:30 MPV 8.2 fl 07/23/17 05:30 Neutrophils % 54.5 % (40.0-80.0) 07/23/17 05:30 Lymphocytes % 30.8 % (20.0-50.0) 07/23/17 05:30 Monocytes % 8.9 % (2.0-10.0) 07/23/17 05:30 Eosinophils % 5.6 % (0.0-5.0) H 07/23/17 05:30 Basophils % 0.2 % (0.0-2.0) 07/23/17 05:30 Sodium 130 mEq/L (136-145) L 07/23/17 05:30 Potassium 3.7 mEq/L (3.5-5.1) 07/23/17 05:30 Chloride 98 mEq/L (98-107) 07/23/17 05:30 Carbon Dioxide 27.1 mEq/L (21.0-31.0) 07/23/17 05:30 Anion Gap 8.6 (7.0-16.0) 07/23/17 05:30 BUN 6 mg/dL (7-25) L 07/23/17 05:30 Creatinine 0.6 mg/dL (0.7-1.3) L 07/23/17 05:30 Est GFR ( Amer) > 60.0 ml/min (>90) 07/23/17 05:30 Est GFR (Non-Af Amer) > 60.0 ml/min 07/23/17 05:30 BUN/Creatinine Ratio 10.0 07/23/17 05:30 Glucose 97 mg/dL (70-105) 07/23/17 05:30 Calcium 8.5 mg/dL (8.6-10.3) L 07/23/17 05:30 Total Bilirubin 0.4 mg/dL (0.3-1.0) 07/19/17 16:36 Direct Bilirubin 0.10 mg/dL (0.0-0.2) 07/19/17 16:36 AST 12 U/L (13-39) L 07/19/17 16:36 ALT < 3 U/L (7-52) L 07/19/17 16:36 Alkaline Phosphatase 36 U/L (34-104) 07/19/17 16:36 Ammonia 147 umol/L (16-53) H 07/23/17 05:30 Total Protein 6.9 gm/dL (6.0-8.3) 07/19/17 16:36 Albumin 4.0 gm/dL (4.2-5.5) L 07/19/17 16:36 Globulin 2.9 gm/dL 07/19/17 16:36 Albumin/Globulin Ratio 1.4 (1.0-1.8) 07/19/17 16:36 Valproic Acid 51.0 ug/mL (50.0-100.0) 07/19/17 16:36 Carbamazepine 8.7 ug/ml (4.0-12.0) 07/19/17 16:36 - Physical Exam Vitals and I&O: Vital Signs Temp 97.6 F 07/23/17 08:00 Pulse 63 07/23/17 08:52 Resp 18 07/23/17 08:00 BP 134/79 07/23/17 08:52 Pulse Ox 95 07/23/17 08:00 Intake & Output 07/22/17 07/23/17 07/23/17 18:59 06:59 18:59 Intake Total 1520 1000 Balance 1520 1000 Weight (lbs) 236 lb 237 lb 14.4 oz Intake: Intake, IV Amount 1000 D5-0.9%Ns 1,000 ml @ 80 1000 mls/hr IV .[id number] [facility] Rx #:[id number] Oral 1520 Other: # Voids 3 # Bowel Movements 1 Stool Characteristics Soft Soft Soft Active Medications: Current Medications Aspirin (Aspirin Chewable) 81 mg PO DAILY [facility] Stop: 09/18/17 08:59 Last Admin: 07/23/17 08:53 Dose: 81 mg Benztropine Mesylate (Cogentin) 0.5 mg PO BID [facility] Stop: 09/18/17 17:39 Last Admin: 07/23/17 08:53 Dose: 0.5 mg Buspirone HCl (Buspar) 10 mg PO BID [facility] PRN Reason: Protocol Stop: 09/18/17 08:59 Last Admin: 07/23/17 08:53 Dose: 10 mg Carbamazepine (Tegretol) 600 mg PO Q12HR [facility] PRN Reason: Protocol Stop: 09/17/17 20:59 Last Admin: 07/23/17 08:51 Dose: 600 mg Carbidopa/Levodopa (Sinemet 25mg-100 Mg) 1 tab PO TID [facility] Stop: 09/17/17 20:59 Last Admin: 07/23/17 08:53 Dose: 1 tab Divalproex Sodium (Depakote Dr) 1,000 mg PO BID [facility] PRN Reason: Protocol Stop: 09/18/17 08:59 Last Admin: 07/23/17 08:56 Dose: 1,000 mg Divalproex Sodium (Depakote Dr) 500 mg PO HS [facility] PRN Reason: Protocol Stop: 09/17/17 20:59 Last Admin: 07/22/17 20:43 Dose: 500 mg Docusate Sodium (Colace) 100 mg PO DAILY [facility] Stop: 09/18/17 08:59 Last Admin: 07/23/17 08:52 Dose: 100 mg Guaifenesin (Robitussin) 200 mg PO Q4HR PRN PRN Reason: Cough or Congestion Stop: 09/17/17 19:57 Last Admin: 07/23/17 12:28 Dose: 200 mg Dextrose/Sodium Chloride (D5-0.9%Ns) 1,000 mls @ 80 mls/hr IV .[id number] [facility] Stop: 09/20/17 11:59 Last Admin: 07/23/17 01:29 Dose: 80 mls/hr Lactulose (Cephulac) 30 gm PO Q6HR [facility] Stop: 09/18/17 00:00 Last Admin: 07/23/17 11:30 Dose: 30 gm Losartan Potassium (Cozaar) 100 mg PO DAILY [facility] Stop: 09/18/17 08:59 Last Admin: 07/23/17 08:52 Dose: 100 mg Miscellaneous (Vte Chemical Prophylaxis Screen/ Admission) 1 ea [facility] PRN PRN PRN Reason: PROTOCOL Stop: 09/18/17 11:38 Ondansetron HCl (Zofran) 4 mg IV Q8H PRN PRN Reason: Nausea / Vomiting Stop: 09/17/17 19:57 Oxybutynin Chloride (Ditropan) 5 mg PO HS [facility] Stop: 09/17/17 20:59 Last Admin: 07/22/17 20:42 Dose: 5 mg Pantoprazole Sodium (Protonix) 40 mg PO BID [facility] Stop: 09/18/17 08:59 Last Admin: 07/23/17 08:52 Dose: 40 mg Paroxetine HCl (Paxil) 10 mg PO DAILY [facility] PRN Reason: Protocol Stop: 09/18/17 08:59 Last Admin: 07/23/17 08:52 Dose: 10 mg Quetiapine Fumarate (Seroquel) 50 mg PO BID [facility] PRN Reason: Protocol Stop: 09/18/17 08:59 Last Admin: 07/23/17 08:52 Dose: 50 mg General: weak, alert HEENT: NC/AT, PERRLA Neck: Supple Lungs: CTAB Cardiovascular: RRR, Normal S1, Normal S2, without murmur Abdomen: soft, non-tender, non-distended, positive bowel sound Extremities: clear, excoriation Neurological: no change - Procedures Procedures: Procedures Procedure Code Date GROUP PSYCHOTHERAPY 56544 12/06/15 GROUP PSYCHOTHERAPY GZHZZZZ 12/06/15 OTHER GROUP THERAPY 94.44 06/02/14 RECREATIONAL THERAPY 93.81 07/28/11 Internal Medicine Assmt/Plan - Assessment Assessment: ALOC Elevated Ammonia Generalized Weakness hypercholesteremia djd schizoaffective parkinson's - Plan Plan: MAY NEED TO GO TO GEROPSYCH UNIT MONITOR AMMONIA LEVEL IVF FOR HYDRATION AM LABS CONTINUE CURRENT PLAN OF CARE
[2017-07-24] MEDS: Lactulose 10 Gm/15 mL 30mL UDC PO SCH ×4 (00:05→17:51)
[2017-07-24 05:22] LABS: % BASOPHILS 0.8 % (0.0-2.0); % EOSINOPHILS 5.6 % (0.0-5.0); % LYMPHOCYTES 32.8 % (20.0-50.0); % MONOCYTES 9.6 % (2.0-10.0); % NEUTROPHILS 51.2 % (40.0-80.0); HEMATOCRIT 43.7 % (41.0-60); HEMOGLOBIN 14.5 gm/dL (12-16); MEAN CELL VOLUME 98.1 fl (80-99); MEAN CORPUSCULAR HEMOGLOBIN 32.5 pg (26.0-30.0); MEAN CORPUSCULAR HGB CONC 33.1 pg (28.0-36.0); MEAN PLATELET VOLUME 8.1 fl; NEUTROPHILE ABSOLUTE 2.4 Th/cmm (1.8-8.0); PLATELET COUNT 179 Th/cmm (150-400); RED BLOOD COUNT 4.46 Mil/cmm (4.30-5.70); WHITE BLOOD COUNT 4.7 Th/cmm (4.8-10.8)
[2017-07-24 05:52] LABS: ANION GAP 8.9 (7.0-16.0); BUN - UREA NITROGEN 8 mg/dL (7-25); BUN/CREATININE RATIO 13.3; CALCIUM SERUM 8.6 mg/dL (8.6-10.3); CHLORIDE 97 mEq/L (98-107); CREATININE - SERUM 0.6 mg/dL (0.7-1.3); GLUCOSE 96 mg/dL (70-105); POTASSIUM SERUM 3.9 mEq/L (3.5-5.1); SODIUM SERUM 130 mEq/L (136-145)
[2017-07-24] MEDS: D5-0.9%NS 1,000 ML IV SCH (06:19)
[2017-07-24] MEDS: Benztropine 1 MG TAB PO SCH ×2 (09:38→17:51)
[2017-07-24] MEDS: Pantoprazole 40 mg EC Tab PO SCH ×2 (09:38→17:51)
[2017-07-24] MEDS: Aspirin 81mg Chewable Tab PO SCH (09:39)
--- NOTE | 2017-07-24 12:12 | Internal Medicine Prog Note ---
Internal Medicine Subjective - Subjective Service Date: 07/24/17 Patient seen and examined:: with staff Patient is:: awake Patient Complaints of:: cough Per staff patient has:: no adverse event, tolerating meds Internal Medicine Objective - Results Result Diagrams: 07/24/17 05:10 07/24/17 05:10 Recent Labs: Laboratory Last Values WBC 4.7 Th/cmm (4.8-10.8) L 07/24/17 05:10 RBC 4.46 Mil/cmm (4.30-5.70) 07/24/17 05:10 Hgb 14.5 gm/dL (12-16) 07/24/17 05:10 Hct 43.7 % (41.0-60) 07/24/17 05:10 MCV 98.1 fl (80-99) 07/24/17 05:10 MCH 32.5 pg (26.0-30.0) H 07/24/17 05:10 MCHC Differential 33.1 pg (28.0-36.0) 07/24/17 05:10 RDW 14.0 % (11.5-20.0) 07/24/17 05:10 Plt Count 179 Th/cmm (150-400) 07/24/17 05:10 MPV 8.1 fl 07/24/17 05:10 Neutrophils % 51.2 % (40.0-80.0) 07/24/17 05:10 Lymphocytes % 32.8 % (20.0-50.0) 07/24/17 05:10 Monocytes % 9.6 % (2.0-10.0) 07/24/17 05:10 Eosinophils % 5.6 % (0.0-5.0) H 07/24/17 05:10 Basophils % 0.8 % (0.0-2.0) 07/24/17 05:10 Sodium 130 mEq/L (136-145) L 07/24/17 05:10 Potassium 3.9 mEq/L (3.5-5.1) 07/24/17 05:10 Chloride 97 mEq/L (98-107) L 07/24/17 05:10 Carbon Dioxide 28.0 mEq/L (21.0-31.0) 07/24/17 05:10 Anion Gap 8.9 (7.0-16.0) 07/24/17 05:10 BUN 8 mg/dL (7-25) 07/24/17 05:10 Creatinine 0.6 mg/dL (0.7-1.3) L 07/24/17 05:10 Est GFR ( Amer) > 60.0 ml/min (>90) 07/24/17 05:10 Est GFR (Non-Af Amer) > 60.0 ml/min 07/24/17 05:10 BUN/Creatinine Ratio 13.3 07/24/17 05:10 Glucose 96 mg/dL (70-105) 07/24/17 05:10 Calcium 8.6 mg/dL (8.6-10.3) 07/24/17 05:10 Total Bilirubin 0.4 mg/dL (0.3-1.0) 07/19/17 16:36 Direct Bilirubin 0.10 mg/dL (0.0-0.2) 07/19/17 16:36 AST 12 U/L (13-39) L 07/19/17 16:36 ALT < 3 U/L (7-52) L 07/19/17 16:36 Alkaline Phosphatase 36 U/L (34-104) 07/19/17 16:36 Ammonia 140 umol/L (16-53) H 07/24/17 05:10 Total Protein 6.9 gm/dL (6.0-8.3) 07/19/17 16:36 Albumin 4.0 gm/dL (4.2-5.5) L 07/19/17 16:36 Globulin 2.9 gm/dL 07/19/17 16:36 Albumin/Globulin Ratio 1.4 (1.0-1.8) 07/19/17 16:36 Valproic Acid 51.0 ug/mL (50.0-100.0) 07/19/17 16:36 Carbamazepine 8.7 ug/ml (4.0-12.0) 07/19/17 16:36 - Physical Exam Vitals and I&O: Vital Signs Temp 97.4 F 07/24/17 08:11 Pulse 56 07/24/17 09:39 Resp 19 07/24/17 08:11 BP 126/75 07/24/17 09:39 Pulse Ox 95 07/24/17 08:11 Intake & Output 07/23/17 07/24/17 07/24/17 18:59 06:59 18:59 Intake Total 1000 1100 Balance 1000 1100 Weight (lbs) 236 lb Intake: Intake, IV Amount 1000 1000 D5-0.9%Ns 1,000 ml @ 80 1000 1000 mls/hr IV .[id number] DARA Rx #:[id number] Oral 100 Other: # Voids 3 # Bowel Movements 1 Stool Characteristics Soft Soft Soft Active Medications: Current Medications Aspirin (Aspirin Chewable) 81 mg PO DAILY [facility] Stop: 09/18/17 08:59 Last Admin: 07/24/17 09:39 Dose: 81 mg Benztropine Mesylate (Cogentin) 0.5 mg PO BID DARA Stop: 09/18/17 17:39 Last Admin: 07/24/17 09:38 Dose: 0.5 mg Buspirone HCl (Buspar) 10 mg PO BID DARA PRN Reason: Protocol Stop: 09/18/17 08:59 Last Admin: 07/24/17 09:38 Dose: 10 mg Carbamazepine (Tegretol) 600 mg PO Q12HR DARA PRN Reason: Protocol Stop: 09/17/17 20:59 Last Admin: 07/24/17 09:39 Dose: 600 mg Carbidopa/Levodopa (Sinemet 25mg-100 Mg) 1 tab PO TID DARA Stop: 09/17/17 20:59 Last Admin: 07/24/17 09:40 Dose: 1 tab Divalproex Sodium (Depakote Dr) 1,000 mg PO BID DARA PRN Reason: Protocol Stop: 09/18/17 08:59 Last Admin: 07/24/17 09:38 Dose: 1,000 mg Divalproex Sodium (Depakote Dr) 500 mg PO HS DARA PRN Reason: Protocol Stop: 09/17/17 20:59 Last Admin: 07/23/17 21:46 Dose: 500 mg Docusate Sodium (Colace) 100 mg PO DAILY [facility] Stop: 09/18/17 08:59 Last Admin: 07/24/17 09:38 Dose: 100 mg Guaifenesin (Robitussin) 200 mg PO Q4HR PRN PRN Reason: Cough or Congestion Stop: 09/17/17 19:57 Last Admin: 07/23/17 12:28 Dose: 200 mg Dextrose/Sodium Chloride (D5-0.9%Ns) 1,000 mls @ 80 mls/hr IV .[id number] DARA Stop: 09/20/17 11:59 Last Admin: 07/24/17 06:19 Dose: 80 mls/hr Lactulose (Cephulac) 30 gm PO Q6HR DARA Stop: 09/18/17 00:00 Last Admin: 07/24/17 11:51 Dose: 30 gm Losartan Potassium (Cozaar) 100 mg PO DAILY DARA Stop: 09/18/17 08:59 Last Admin: 07/24/17 09:39 Dose: 100 mg Miscellaneous (Vte Chemical Prophylaxis Screen/ Admission) 1 ea [facility] PRN PRN PRN Reason: PROTOCOL Stop: 09/18/17 11:38 Ondansetron HCl (Zofran) 4 mg IV Q8H PRN PRN Reason: Nausea / Vomiting Stop: 09/17/17 19:57 Oxybutynin Chloride (Ditropan) 5 mg PO HS DARA Stop: 09/17/17 20:59 Last Admin: 07/23/17 21:46 Dose: 5 mg Pantoprazole Sodium (Protonix) 40 mg PO BID DARA Stop: 09/18/17 08:59 Last Admin: 07/24/17 09:38 Dose: 40 mg Paroxetine HCl (Paxil) 10 mg PO DAILY DARA PRN Reason: Protocol Stop: 09/18/17 08:59 Last Admin: 07/24/17 09:39 Dose: 10 mg Quetiapine Fumarate (Seroquel) 50 mg PO BID DARA PRN Reason: Protocol Stop: 09/18/17 08:59 Last Admin: 07/24/17 09:38 Dose: 50 mg General: weak, alert HEENT: NC/AT, PERRLA Neck: Supple Lungs: ronchi Cardiovascular: RRR, Normal S1, Normal S2, without murmur Abdomen: soft, non-tender, non-distended, positive bowel sound Extremities: clear, excoriation Neurological: no change - Procedures Procedures: Procedures Procedure Code Date GROUP PSYCHOTHERAPY 58491 12/06/15 GROUP PSYCHOTHERAPY [id number] 12/06/15 OTHER GROUP THERAPY 94.44 06/02/14 RECREATIONAL THERAPY 93.81 07/28/11 Internal Medicine Assmt/Plan - Assessment Assessment: ALOC Elevated Ammonia Generalized Weakness hypercholesteremia djd schizoaffective parkinson's - Plan Plan: chest xray today prn anti-tussive will add bronchodilators MONITOR AMMONIA LEVEL IVF FOR HYDRATION AM LABS CONTINUE CURRENT PLAN OF CARE
--- NOTE | 2017-07-24 13:52 | Diagnostic Imaging Report ---
CHEST X-RAY: AP view INDICATION: Cough COMPARISON: 06/29/2017 FINDINGS: Low lung the lungs are seen with left basal density. Heart size is borderline prominent. Gas-filled loops of bowel are seen along the right upper quadrant. IMPRESSION: Low lung volume with left basal density. Atelectasis versus infiltrate of the left lung base cannot be excluded. The may also be a small left effusion. Borderline cardiomegaly.
[2017-07-24] MEDS: Albuterol Nebulizer 2.5mg/3mL HHN SCH ×2 (15:49→19:01)
[2017-07-24] MEDS: Ipratropium Neb 0.5 mg/2.5 mL UD HHN SCH ×2 (15:49→19:01)
[2017-07-25] MEDS: Lactulose 10 Gm/15 mL 30mL UDC PO SCH ×4 (00:25→17:30)
[2017-07-25] MEDS: D5-0.9%NS 1,000 ML IV SCH ×3 (00:27→13:03)
[2017-07-25 06:07] LABS: % LYMPHOCYTES 35.9 % (20.0-50.0); % MONOCYTES 8.6 % (2.0-10.0); % NEUTROPHILS 47.5 % (40.0-80.0); HEMATOCRIT 42.3 % (41.0-60); HEMOGLOBIN 14.2 gm/dL (12-16); MEAN CELL VOLUME 96.1 fl (80-99); MEAN CORPUSCULAR HEMOGLOBIN 32.3 pg (26.0-30.0); MEAN CORPUSCULAR HGB CONC 33.6 pg (28.0-36.0); NEUTROPHILE ABSOLUTE 2.4 Th/cmm (1.8-8.0); PLATELET COUNT 170 Th/cmm (150-400); RED CELL DISTRIBUTION WIDTH 13.7 % (11.5-20.0); WHITE BLOOD COUNT 4.8 Th/cmm (4.8-10.8)
[2017-07-25 06:26] LABS: ANION GAP 7.1 (7.0-16.0); BUN - UREA NITROGEN 9 mg/dL (7-25); BUN/CREATININE RATIO 12.9; CALCIUM SERUM 8.5 mg/dL (8.6-10.3); CARBON DIOXIDE 29.6 mEq/L (21.0-31.0); CHLORIDE 96 mEq/L (98-107); CREATININE - SERUM 0.7 mg/dL (0.7-1.3); GLUCOSE 97 mg/dL (70-105); POTASSIUM SERUM 3.7 mEq/L (3.5-5.1); SODIUM SERUM 129 mEq/L (136-145)
[2017-07-25] MEDS: Albuterol Nebulizer 2.5mg/3mL HHN SCH ×4 (06:56→19:17)
[2017-07-25] MEDS: Ipratropium Neb 0.5 mg/2.5 mL UD HHN SCH ×4 (06:56→19:17)
[2017-07-25] MEDS: Benztropine 1 MG TAB PO SCH ×2 (08:15→16:25)
[2017-07-25] MEDS: Aspirin 81mg Chewable Tab PO SCH (08:15)
[2017-07-25] MEDS: Pantoprazole 40 mg EC Tab PO SCH ×2 (08:16→16:25)
--- NOTE | 2017-07-25 12:39 | Internal Medicine Prog Note ---
Internal Medicine Subjective - Subjective Service Date: 07/25/17 Patient is:: awake Patient Complaints of:: cough Per staff patient has:: no adverse event, tolerating meds Internal Medicine Objective - Results Result Diagrams: 07/25/17 05:55 07/25/17 05:55 Recent Labs: Laboratory Last Values WBC 4.8 Th/cmm (4.8-10.8) 07/25/17 05:55 RBC 4.40 Mil/cmm (4.30-5.70) 07/25/17 05:55 Hgb 14.2 gm/dL (12-16) 07/25/17 05:55 Hct 42.3 % (41.0-60) 07/25/17 05:55 MCV 96.1 fl (80-99) 07/25/17 05:55 MCH 32.3 pg (26.0-30.0) H 07/25/17 05:55 MCHC Differential 33.6 pg (28.0-36.0) 07/25/17 05:55 RDW 13.7 % (11.5-20.0) 07/25/17 05:55 Plt Count 170 Th/cmm (150-400) 07/25/17 05:55 MPV 8.0 fl 07/25/17 05:55 Neutrophils % 47.5 % (40.0-80.0) 07/25/17 05:55 Lymphocytes % 35.9 % (20.0-50.0) 07/25/17 05:55 Monocytes % 8.6 % (2.0-10.0) 07/25/17 05:55 Eosinophils % 7.0 % (0.0-5.0) H 07/25/17 05:55 Basophils % 1.0 % (0.0-2.0) 07/25/17 05:55 Sodium 129 mEq/L (136-145) L 07/25/17 05:55 Potassium 3.7 mEq/L (3.5-5.1) 07/25/17 05:55 Chloride 96 mEq/L (98-107) L 07/25/17 05:55 Carbon Dioxide 29.6 mEq/L (21.0-31.0) 07/25/17 05:55 Anion Gap 7.1 (7.0-16.0) 07/25/17 05:55 BUN 9 mg/dL (7-25) 07/25/17 05:55 Creatinine 0.7 mg/dL (0.7-1.3) 07/25/17 05:55 Est GFR ( Amer) > 60.0 ml/min (>90) 07/25/17 05:55 Est GFR (Non-Af Amer) > 60.0 ml/min 07/25/17 05:55 BUN/Creatinine Ratio 12.9 07/25/17 05:55 Glucose 97 mg/dL (70-105) 07/25/17 05:55 Calcium 8.5 mg/dL (8.6-10.3) L 07/25/17 05:55 Total Bilirubin 0.4 mg/dL (0.3-1.0) 07/19/17 16:36 Direct Bilirubin 0.10 mg/dL (0.0-0.2) 07/19/17 16:36 AST 12 U/L (13-39) L 07/19/17 16:36 ALT < 3 U/L (7-52) L 07/19/17 16:36 Alkaline Phosphatase 36 U/L (34-104) 07/19/17 16:36 Ammonia 111 umol/L (16-53) H 07/25/17 05:55 Total Protein 6.9 gm/dL (6.0-8.3) 07/19/17 16:36 Albumin 4.0 gm/dL (4.2-5.5) L 07/19/17 16:36 Globulin 2.9 gm/dL 07/19/17 16:36 Albumin/Globulin Ratio 1.4 (1.0-1.8) 07/19/17 16:36 Valproic Acid 51.0 ug/mL (50.0-100.0) 07/19/17 16:36 Carbamazepine 8.7 ug/ml (4.0-12.0) 07/19/17 16:36 - Physical Exam Vitals and I&O: Vital Signs Temp 97.5 F 07/25/17 11:00 Pulse 52 07/25/17 11:32 Resp 18 07/25/17 11:32 BP 126/76 07/25/17 11:00 Pulse Ox 92 07/25/17 11:32 Intake & Output 07/24/17 07/25/17 07/25/17 18:59 06:59 18:59 Intake Total 1500.000 200 890.667 Balance 1500.000 200 890.667 Weight (lbs) 233 lb 6.4 oz 238 lb Intake: Intake, IV Amount 1000.000 890.667 D5-0.9%Ns 1,000 ml @ 80 1000.000 890.667 mls/hr IV .[id number] [facility] Rx #:[id number] Oral 500 200 Other: # Voids 2 4 # Bowel Movements 0 1 Stool Characteristics Soft Soft Soft Active Medications: Current Medications Albuterol Sulfate (Albuterol 2.5mg/3ml Neb Ud) 2.5 mg HHN QIDRT [facility] Stop: 09/22/17 14:59 Last Admin: 07/25/17 11:32 Dose: 2.5 mg Aspirin (Aspirin Chewable) 81 mg PO DAILY [facility] Stop: 09/18/17 08:59 Last Admin: 07/25/17 08:15 Dose: 81 mg Benztropine Mesylate (Cogentin) 0.5 mg PO BID [facility] Stop: 09/18/17 17:39 Last Admin: 07/25/17 08:15 Dose: 0.5 mg Buspirone HCl (Buspar) 10 mg PO BID [facility] PRN Reason: Protocol Stop: 09/18/17 08:59 Last Admin: 07/25/17 08:16 Dose: 10 mg Carbamazepine (Tegretol) 600 mg PO Q12HR [facility] PRN Reason: Protocol Stop: 09/17/17 20:59 Last Admin: 07/25/17 08:15 Dose: 600 mg Carbidopa/Levodopa (Sinemet 25mg-100 Mg) 1 tab PO TID [facility] Stop: 09/17/17 20:59 Last Admin: 07/25/17 08:15 Dose: 1 tab Divalproex Sodium (Depakote Dr) 1,000 mg PO BID [facility] PRN Reason: Protocol Stop: 09/18/17 08:59 Last Admin: 07/25/17 08:15 Dose: 1,000 mg Divalproex Sodium (Depakote Dr) 500 mg PO HS [facility] PRN Reason: Protocol Stop: 09/17/17 20:59 Last Admin: 07/24/17 21:50 Dose: 500 mg Docusate Sodium (Colace) 100 mg PO DAILY [facility] Stop: 09/18/17 08:59 Last Admin: 07/25/17 08:16 Dose: 100 mg Guaifenesin (Robitussin) 200 mg PO Q4HR PRN PRN Reason: Cough or Congestion Stop: 09/17/17 19:57 Last Admin: 07/23/17 12:28 Dose: 200 mg Dextrose/Sodium Chloride (D5-0.9%Ns) 1,000 mls @ 60 mls/hr IV .[id number] [facility] Stop: 09/20/17 11:59 Ipratropium [place] (Atrovent Neb 0.5mg/2.5ml) 0.5 mg HHN QIDRT [facility] Stop: 09/22/17 14:59 Last Admin: 07/25/17 11:32 Dose: 0.5 mg Lactulose (Cephulac) 30 gm PO Q6HR [facility] Stop: 09/18/17 00:00 Last Admin: 07/25/17 11:46 Dose: 30 gm Losartan Potassium (Cozaar) 100 mg PO DAILY [facility] Stop: 09/18/17 08:59 Last Admin: 07/25/17 08:20 Dose: 100 mg Miscellaneous (Vte Chemical Prophylaxis Screen/ Admission) 1 ea [facility] PRN PRN PRN Reason: PROTOCOL Stop: 09/18/17 11:38 Ondansetron HCl (Zofran) 4 mg IV Q8H PRN PRN Reason: Nausea / Vomiting Stop: 09/17/17 19:57 Oxybutynin Chloride (Ditropan) 5 mg PO HS [facility] Stop: 09/17/17 20:59 Last Admin: 07/24/17 21:50 Dose: 5 mg Pantoprazole Sodium (Protonix) 40 mg PO BID [facility] Stop: 09/18/17 08:59 Last Admin: 07/25/17 08:16 Dose: 40 mg Paroxetine HCl (Paxil) 10 mg PO DAILY [facility] PRN Reason: Protocol Stop: 09/18/17 08:59 Last Admin: 07/25/17 08:16 Dose: 10 mg Quetiapine Fumarate (Seroquel) 50 mg PO BID [facility] PRN Reason: Protocol Stop: 09/18/17 08:59 Last Admin: 07/25/17 08:16 Dose: 50 mg General: weak, alert HEENT: NC/AT, PERRLA Neck: Supple Lungs: ronchi Cardiovascular: RRR, Normal S1, Normal S2, without murmur Abdomen: soft, non-tender, non-distended, positive bowel sound Extremities: clear, excoriation Neurological: no change - Procedures Procedures: Procedures Procedure Code Date GROUP PSYCHOTHERAPY 58221 12/06/15 GROUP PSYCHOTHERAPY GZHZZZZ 12/06/15 OTHER GROUP THERAPY 94.44 06/02/14 RECREATIONAL THERAPY 93.81 07/28/11 Internal Medicine Assmt/Plan - Assessment Assessment: ALOC Elevated Ammonia Generalized Weakness hypercholesteremia djd schizoaffective parkinson's - Plan Plan: MONITOR AMMONIA LEVEL IVF FOR HYDRATION AM LABS CONTINUE CURRENT PLAN OF CARE Nutritional Asmnt/Malnutr-PDOC - Dietary Evaluation Malnutrition Findings (Please click <Entered> for more info): Nutritional Asmnt/Malnutrition Start: 07/24/17 15: 55 Text: Status: Complete Freq: Document 07/24/17 15:56 GSUN (Rec: 07/24/17 16:11 GSUN [email or web address]) Nutritional Asmnt/Malnutrition Patient General Information Nutritional Screening Moderate Risk Screening Diagnosis ALOC, elevated ammonia Pertinent Medical Hx/Surgical Hx CVA, DJD, hypercholesterolemia , schizoaffective disorder, Parkinson's Subjective Information 66 year old male from SNF. Pt is a questionable historian and was verbally inappropriate during visit. Locker Room Manager explained current diet order, pt expressed understandning. Pt appeared overweight, no muscle fat wasting noted. Avg PO intake 75-100% of meals since adm, meeting nutritional needs. Pt denied nutritional concerns at this time. Current Diet Order/ Nutrition Support Low protein, low sodium Pertinent Medications D5-0.9%ns, Colace, Cephulac, Zofran, Protonix, Seroquel Pertinent Labs Ammonia 95-147H since adm Nutritional Hx/Data Height 6 ft Height (Calculated Centimeters) 182.9 Current Weight (lbs) 233 lb 6.4 oz Weight (Calculated Kilograms) 105.9 Weight (Calculated Grams) 043429.5 [place] Body Weight 178 Weight Status Obese GI Symptoms Food Allergies No Usual diet at home Jennifer Nuñez SNF: [facility] soft, chopped meat. Skin Integrity/Comment: Jani 12. Reddened upper chest and left upper arm. Current %PO Good (75-100%) Estimated Nutritional Goals BEE in Kcals: Adj wt of IBW Calories/Kcals/Kg AdjBW 191.9lb/87.2kg Kcals Calculated 2180-2616kcal (25-30kcal/kg) Protein: Adj wt of IBW Protein Calculated 52-70g (0.6-0.8g/kg) Fluid: ml 2180-2616ml (1ml/kcal) Nutritional Problem 1. Problem Problem Excessive protein intake related to Etiology estimated protein needs aeb Signs/Symptoms: elevated ammonia levels Intervention/Recommendation Comments 1. Continue with current diet order as pt tolerates. Avg PO intake is adequate. Expected Outcomes/Goals Expected Outcomes/Goals 1. PO intake continue to meet at least 75% of estimated nutritional needs.
--- NOTE | 2017-07-25 15:42 | Diagnostic Imaging Report ---
CT scan of the chest without intravenous contrast HISTORY: Pneumonia, shortness of breath Total DLP equals 430 CTDI equals 9.9 Axial sections were obtained from a level above the clavicles down to a level below the diaphragm. The overall heart size is normal. Faint coronary artery and atherosclerotic vascular calcification noted. No abnormal mediastinal masses are seen. No definite abnormal hilar masses. There is elevation of the right hemidiaphragm. Faint linear parenchymal density noted in the periphery of the left lower lobe consistent with scarring or subsegmental atelectasis. No pleural fluid. Degenerative changes seen within the spine. IMPRESSION: 1. Linear parenchymal density within the left lower lobe consistent with scarring or subsegmental atelectasis. 2. Elevation of the right hemidiaphragm 3. Faint coronary artery and atherosclerotic vascular calcification
[2017-07-26] MEDS: Lactulose 10 Gm/15 mL 30mL UDC PO SCH ×5 (00:55→23:10)
[2017-07-26] MEDS: D5-0.9%NS 1,000 ML IV SCH ×2 (05:14→23:17)
[2017-07-26 05:58] LABS: % BASOPHILS 0.1 % (0.0-2.0); % EOSINOPHILS 6.9 % (0.0-5.0); % LYMPHOCYTES 30.7 % (20.0-50.0); % MONOCYTES 9.7 % (2.0-10.0); % NEUTROPHILS 52.6 % (40.0-80.0); HEMATOCRIT 42.3 % (41.0-60); MEAN CELL VOLUME 96.8 fl (80-99); MEAN CORPUSCULAR HEMOGLOBIN 32.1 pg (26.0-30.0); MEAN CORPUSCULAR HGB CONC 33.2 pg (28.0-36.0); MEAN PLATELET VOLUME 7.7 fl; NEUTROPHILE ABSOLUTE 2.8 Th/cmm (1.8-8.0); PLATELET COUNT 182 Th/cmm (150-400); RED BLOOD COUNT 4.36 Mil/cmm (4.30-5.70); RED CELL DISTRIBUTION WIDTH 13.6 % (11.5-20.0); WHITE BLOOD COUNT 5.4 Th/cmm (4.8-10.8)
[2017-07-26 06:19] LABS: ANION GAP 7.3 (7.0-16.0); BUN - UREA NITROGEN 9 mg/dL (7-25); BUN/CREATININE RATIO 12.9; CALCIUM SERUM 8.7 mg/dL (8.6-10.3); CARBON DIOXIDE 29.7 mEq/L (21.0-31.0); CHLORIDE 97 mEq/L (98-107); CREATININE - SERUM 0.7 mg/dL (0.7-1.3); GLUCOSE 88 mg/dL (70-105); SODIUM SERUM 130 mEq/L (136-145)
[2017-07-26] MEDS: Ipratropium Neb 0.5 mg/2.5 mL UD HHN SCH ×4 (07:32→19:52)
[2017-07-26] MEDS: Albuterol Nebulizer 2.5mg/3mL HHN SCH ×4 (07:32→19:52)
[2017-07-26] MEDS: Aspirin 81mg Chewable Tab PO SCH (08:11)
[2017-07-26] MEDS: Pantoprazole 40 mg EC Tab PO SCH ×2 (08:12→16:15)
[2017-07-26] MEDS: Benztropine 1 MG TAB PO SCH ×2 (08:12→16:14)
--- NOTE | 2017-07-26 14:01 | Internal Medicine Prog Note ---
Internal Medicine Subjective - Subjective Service Date: 07/26/17 Patient seen and examined:: with staff Patient is:: awake Patient Complaints of:: cough Per staff patient has:: no adverse event, tolerating meds Internal Medicine Objective - Results Result Diagrams: 07/26/17 05:48 07/26/17 05:48 Recent Labs: Laboratory Last Values WBC 5.4 Th/cmm (4.8-10.8) 07/26/17 05:48 RBC 4.36 Mil/cmm (4.30-5.70) 07/26/17 05:48 Hgb 14.0 gm/dL (12-16) 07/26/17 05:48 Hct 42.3 % (41.0-60) 07/26/17 05:48 MCV 96.8 fl (80-99) 07/26/17 05:48 MCH 32.1 pg (26.0-30.0) H 07/26/17 05:48 MCHC Differential 33.2 pg (28.0-36.0) 07/26/17 05:48 RDW 13.6 % (11.5-20.0) 07/26/17 05:48 Plt Count 182 Th/cmm (150-400) 07/26/17 05:48 MPV 7.7 fl 07/26/17 05:48 Neutrophils % 52.6 % (40.0-80.0) 07/26/17 05:48 Lymphocytes % 30.7 % (20.0-50.0) 07/26/17 05:48 Monocytes % 9.7 % (2.0-10.0) 07/26/17 05:48 Eosinophils % 6.9 % (0.0-5.0) H 07/26/17 05:48 Basophils % 0.1 % (0.0-2.0) 07/26/17 05:48 Sodium 130 mEq/L (136-145) L 07/26/17 05:48 Potassium 4.0 mEq/L (3.5-5.1) 07/26/17 05:48 Chloride 97 mEq/L (98-107) L 07/26/17 05:48 Carbon Dioxide 29.7 mEq/L (21.0-31.0) 07/26/17 05:48 Anion Gap 7.3 (7.0-16.0) 07/26/17 05:48 BUN 9 mg/dL (7-25) 07/26/17 05:48 Creatinine 0.7 mg/dL (0.7-1.3) 07/26/17 05:48 Est GFR ( Amer) > 60.0 ml/min (>90) 07/26/17 05:48 Est GFR (Non-Af Amer) > 60.0 ml/min 07/26/17 05:48 BUN/Creatinine Ratio 12.9 07/26/17 05:48 Glucose 88 mg/dL (70-105) 07/26/17 05:48 Calcium 8.7 mg/dL (8.6-10.3) 07/26/17 05:48 Total Bilirubin 0.4 mg/dL (0.3-1.0) 07/19/17 16:36 Direct Bilirubin 0.10 mg/dL (0.0-0.2) 07/19/17 16:36 AST 12 U/L (13-39) L 07/19/17 16:36 ALT < 3 U/L (7-52) L 07/19/17 16:36 Alkaline Phosphatase 36 U/L (34-104) 07/19/17 16:36 Ammonia 93 umol/L (16-53) H 07/26/17 05:48 Total Protein 6.9 gm/dL (6.0-8.3) 07/19/17 16:36 Albumin 4.0 gm/dL (4.2-5.5) L 07/19/17 16:36 Globulin 2.9 gm/dL 07/19/17 16:36 Albumin/Globulin Ratio 1.4 (1.0-1.8) 07/19/17 16:36 Valproic Acid 51.0 ug/mL (50.0-100.0) 07/19/17 16:36 Carbamazepine 8.7 ug/ml (4.0-12.0) 07/19/17 16:36 - Physical Exam Vitals and I&O: Vital Signs Temp 97.3 F 07/26/17 11:32 Pulse 63 07/26/17 13:05 Resp 18 07/26/17 13:05 BP 154/85 07/26/17 11:32 Pulse Ox 93 07/26/17 13:05 Intake & Output 07/25/17 07/26/17 07/26/17 18:59 06:59 18:59 Intake Total 354.406 9183 Output Total 1700 Balance 890.667 -529 Weight (lbs) 234 lb Intake: Intake, IV Amount 890.667 971 D5-0.9%Ns 1,000 ml @ 60 971 mls/hr IV .[id number] [facility] Rx #:[id number] D5-0.9%Ns 1,000 ml @ 80 890.667 mls/hr IV .[id number] [facility] Rx #:[id number] Oral 200 Output: Urine 1700 Other: # Bowel Movements 0 Stool Characteristics Soft Soft Soft Active Medications: Current Medications Albuterol Sulfate (Albuterol 2.5mg/3ml Neb Ud) 2.5 mg HHN QIDRT [facility] Stop: 09/22/17 14:59 Last Admin: 07/26/17 13:02 Dose: 2.5 mg Aspirin (Aspirin Chewable) 81 mg PO DAILY [facility] Stop: 09/18/17 08:59 Last Admin: 07/26/17 08:11 Dose: 81 mg Benztropine Mesylate (Cogentin) 0.5 mg PO BID [facility] Stop: 09/18/17 17:39 Last Admin: 07/26/17 08:12 Dose: 0.5 mg Buspirone HCl (Buspar) 10 mg PO BID [facility] PRN Reason: Protocol Stop: 09/18/17 08:59 Last Admin: 07/26/17 08:11 Dose: 10 mg Carbamazepine (Tegretol) 600 mg PO Q12HR [facility] PRN Reason: Protocol Stop: 09/17/17 20:59 Last Admin: 07/26/17 08:11 Dose: 600 mg Carbidopa/Levodopa (Sinemet 25mg-100 Mg) 1 tab PO TID [facility] Stop: 09/17/17 20:59 Last Admin: 07/26/17 08:11 Dose: 1 tab Divalproex Sodium (Depakote Dr) 1,000 mg PO BID [facility] PRN Reason: Protocol Stop: 09/18/17 08:59 Last Admin: 07/26/17 08:11 Dose: 1,000 mg Divalproex Sodium (Depakote Dr) 500 mg PO HS [facility] PRN Reason: Protocol Stop: 09/17/17 20:59 Last Admin: 07/25/17 20:20 Dose: 500 mg Docusate Sodium (Colace) 100 mg PO DAILY [facility] Stop: 09/18/17 08:59 Last Admin: 07/26/17 08:12 Dose: 100 mg Guaifenesin (Robitussin) 200 mg PO Q4HR PRN PRN Reason: Cough or Congestion Stop: 09/17/17 19:57 Last Admin: 07/23/17 12:28 Dose: 200 mg Dextrose/Sodium Chloride (D5-0.9%Ns) 1,000 mls @ 60 mls/hr IV .[id number] [facility] Stop: 09/20/17 11:59 Last Admin: 07/26/17 05:14 Dose: 60 mls/hr Ipratropium [place] (Atrovent Neb 0.5mg/2.5ml) 0.5 mg HHN QIDRT [facility] Stop: 09/22/17 14:59 Last Admin: 07/26/17 13:03 Dose: 0.5 mg Lactulose (Cephulac) 30 gm PO Q6HR [facility] Stop: 09/18/17 00:00 Last Admin: 07/26/17 11:30 Dose: 30 gm Losartan Potassium (Cozaar) 100 mg PO DAILY [facility] Stop: 09/18/17 08:59 Last Admin: 07/26/17 08:12 Dose: 100 mg Miscellaneous (Vte Chemical Prophylaxis Screen/ Admission) 1 ea [facility] PRN PRN PRN Reason: PROTOCOL Stop: 09/18/17 11:38 Ondansetron HCl (Zofran) 4 mg IV Q8H PRN PRN Reason: Nausea / Vomiting Stop: 09/17/17 19:57 Oxybutynin Chloride (Ditropan) 5 mg PO HS [facility] Stop: 09/17/17 20:59 Last Admin: 07/25/17 20:19 Dose: 5 mg Pantoprazole Sodium (Protonix) 40 mg PO BID [facility] Stop: 09/18/17 08:59 Last Admin: 07/26/17 08:12 Dose: 40 mg Paroxetine HCl (Paxil) 10 mg PO DAILY [facility] PRN Reason: Protocol Stop: 09/18/17 08:59 Last Admin: 07/26/17 08:11 Dose: 10 mg Quetiapine Fumarate (Seroquel) 50 mg PO BID [facility] PRN Reason: Protocol Stop: 09/18/17 08:59 Last Admin: 07/26/17 08:11 Dose: 50 mg General: weak, alert HEENT: NC/AT, PERRLA Neck: Supple Lungs: ronchi Cardiovascular: RRR, Normal S1, Normal S2, without murmur Abdomen: soft, non-tender, non-distended, positive bowel sound Extremities: clear, excoriation Neurological: no change - Procedures Procedures: Procedures Procedure Code Date GROUP PSYCHOTHERAPY 37233 12/06/15 GROUP PSYCHOTHERAPY GZHZZZZ 12/06/15 OTHER GROUP THERAPY 94.44 06/02/14 RECREATIONAL THERAPY 93.81 07/28/11 Internal Medicine Assmt/Plan - Assessment Assessment: ALOC Elevated Ammonia Generalized Weakness hypercholesteremia djd schizoaffective parkinson's - Plan Plan: MONITOR AMMONIA LEVEL IVF FOR HYDRATION AM LABS CONTINUE CURRENT PLAN OF CARE Nutritional Asmnt/Malnutr-PDOC - Dietary Evaluation Malnutrition Findings (Please click <Entered> for more info): Nutritional Asmnt/Malnutrition Start: 07/24/17 15: 55 Text: Status: Complete Freq: Document 07/24/17 15:56 GSUN (Rec: 07/24/17 16:11 GSUN [email or web address]) Nutritional Asmnt/Malnutrition Patient General Information Nutritional Screening Moderate Risk Screening Diagnosis ALOC, elevated ammonia Pertinent Medical Hx/Surgical Hx CVA, DJD, hypercholesterolemia , schizoaffective disorder, Parkinson's Subjective Information 66 year old male from [facility]. Pt is a questionable historian and was verbally inappropriate during visit. Laboratory Mechanical Technician explained current diet order, pt expressed understandning. Pt appeared overweight, no muscle fat wasting noted. Avg PO intake 75-100% of meals since adm, meeting nutritional needs. Pt denied nutritional concerns at this time. Current Diet Order/ Nutrition Support Low protein, low sodium Pertinent Medications D5-0.9%ns, Colace, Cephulac, Zofran, Protonix, Seroquel Pertinent Labs Ammonia 95-147H since adm Nutritional Hx/Data Height 6 ft Height (Calculated Centimeters) 182.9 Current Weight (lbs) 233 lb 6.4 oz Weight (Calculated Kilograms) 105.9 Weight (Calculated Grams) 717276.5 [place] Body Weight 178 Weight Status Obese GI Symptoms Food Allergies No Usual diet at home Jennifer Nuñez SNF: [facility] soft, chopped meat. Skin Integrity/Comment: Jani 12. Reddened upper chest and left upper arm. Current %PO Good (75-100%) Estimated Nutritional Goals BEE in Kcals: Adj wt of IBW Calories/Kcals/Kg AdjBW 191.9lb/87.2kg Kcals Calculated 2180-2616kcal (25-30kcal/kg) Protein: Adj wt of IBW Protein Calculated 52-70g (0.6-0.8g/kg) Fluid: ml 2180-2616ml (1ml/kcal) Nutritional Problem 1. Problem Problem Excessive protein intake related to Etiology estimated protein needs aeb Signs/Symptoms: elevated ammonia levels Intervention/Recommendation Comments 1. Continue with current diet order as pt tolerates. Avg PO intake is adequate. Expected Outcomes/Goals Expected Outcomes/Goals 1. PO intake continue to meet at least 75% of estimated nutritional needs.
[2017-07-27 05:35] LABS: % BASOPHILS 0.7 % (0.0-2.0); % EOSINOPHILS 6.9 % (0.0-5.0); % MONOCYTES 10.2 % (2.0-10.0); % NEUTROPHILS 48.2 % (40.0-80.0); HEMATOCRIT 41.8 % (41.0-60); HEMOGLOBIN 13.8 gm/dL (12-16); MEAN CELL VOLUME 96.5 fl (80-99); MEAN CORPUSCULAR HEMOGLOBIN 31.9 pg (26.0-30.0); MEAN CORPUSCULAR HGB CONC 33.1 pg (28.0-36.0); MEAN PLATELET VOLUME 7.9 fl; NEUTROPHILE ABSOLUTE 2.4 Th/cmm (1.8-8.0); PLATELET COUNT 183 Th/cmm (150-400); RED BLOOD COUNT 4.33 Mil/cmm (4.30-5.70); RED CELL DISTRIBUTION WIDTH 13.6 % (11.5-20.0); WHITE BLOOD COUNT 4.9 Th/cmm (4.8-10.8)
[2017-07-27 05:54] LABS: ANION GAP 8.3 (7.0-16.0); BUN - UREA NITROGEN 8 mg/dL (7-25); BUN/CREATININE RATIO 11.4; CALCIUM SERUM 8.6 mg/dL (8.6-10.3); CARBON DIOXIDE 28.5 mEq/L (21.0-31.0); CHLORIDE 98 mEq/L (98-107); CREATININE - SERUM 0.7 mg/dL (0.7-1.3); GLUCOSE 97 mg/dL (70-105); POTASSIUM SERUM 3.8 mEq/L (3.5-5.1); SODIUM SERUM 131 mEq/L (136-145)
[2017-07-27] MEDS: Lactulose 10 Gm/15 mL 30mL UDC PO SCH ×3 (07:00→17:30)
[2017-07-27] MEDS: Albuterol Nebulizer 2.5mg/3mL HHN SCH ×4 (07:50→19:28)
[2017-07-27] MEDS: Ipratropium Neb 0.5 mg/2.5 mL UD HHN SCH ×4 (07:50→19:28)
[2017-07-27] MEDS: Pantoprazole 40 mg EC Tab PO SCH ×2 (08:13→16:46)
[2017-07-27] MEDS: Aspirin 81mg Chewable Tab PO SCH (08:13)
[2017-07-27] MEDS: Benztropine 1 MG TAB PO SCH ×2 (08:13→16:46)
--- NOTE | 2017-07-27 12:28 | Internal Medicine Prog Note ---
Internal Medicine Subjective - Subjective Service Date: 07/27/17 Patient seen and examined:: with staff Patient is:: awake Patient Complaints of:: cough Per staff patient has:: no adverse event, tolerating meds Internal Medicine Objective - Results Result Diagrams: 07/27/17 05:18 07/27/17 05:18 Recent Labs: Laboratory Last Values WBC 4.9 Th/cmm (4.8-10.8) 07/27/17 05:18 RBC 4.33 Mil/cmm (4.30-5.70) 07/27/17 05:18 Hgb 13.8 gm/dL (12-16) 07/27/17 05:18 Hct 41.8 % (41.0-60) 07/27/17 05:18 MCV 96.5 fl (80-99) 07/27/17 05:18 MCH 31.9 pg (26.0-30.0) H 07/27/17 05:18 MCHC Differential 33.1 pg (28.0-36.0) 07/27/17 05:18 RDW 13.6 % (11.5-20.0) 07/27/17 05:18 Plt Count 183 Th/cmm (150-400) 07/27/17 05:18 MPV 7.9 fl 07/27/17 05:18 Neutrophils % 48.2 % (40.0-80.0) 07/27/17 05:18 Lymphocytes % 34.0 % (20.0-50.0) 07/27/17 05:18 Monocytes % 10.2 % (2.0-10.0) H 07/27/17 05:18 Eosinophils % 6.9 % (0.0-5.0) H 07/27/17 05:18 Basophils % 0.7 % (0.0-2.0) 07/27/17 05:18 Sodium 131 mEq/L (136-145) L 07/27/17 05:18 Potassium 3.8 mEq/L (3.5-5.1) 07/27/17 05:18 Chloride 98 mEq/L (98-107) 07/27/17 05:18 Carbon Dioxide 28.5 mEq/L (21.0-31.0) 07/27/17 05:18 Anion Gap 8.3 (7.0-16.0) 07/27/17 05:18 BUN 8 mg/dL (7-25) 07/27/17 05:18 Creatinine 0.7 mg/dL (0.7-1.3) 07/27/17 05:18 Est GFR ( Amer) > 60.0 ml/min (>90) 07/27/17 05:18 Est GFR (Non-Af Amer) > 60.0 ml/min 07/27/17 05:18 BUN/Creatinine Ratio 11.4 07/27/17 05:18 Glucose 97 mg/dL (70-105) 07/27/17 05:18 Calcium 8.6 mg/dL (8.6-10.3) 07/27/17 05:18 Total Bilirubin 0.4 mg/dL (0.3-1.0) 07/19/17 16:36 Direct Bilirubin 0.10 mg/dL (0.0-0.2) 07/19/17 16:36 AST 12 U/L (13-39) L 07/19/17 16:36 ALT < 3 U/L (7-52) L 07/19/17 16:36 Alkaline Phosphatase 36 U/L (34-104) 07/19/17 16:36 Ammonia 100 umol/L (16-53) H 07/27/17 05:18 Total Protein 6.9 gm/dL (6.0-8.3) 07/19/17 16:36 Albumin 4.0 gm/dL (4.2-5.5) L 07/19/17 16:36 Globulin 2.9 gm/dL 07/19/17 16:36 Albumin/Globulin Ratio 1.4 (1.0-1.8) 07/19/17 16:36 Valproic Acid 51.0 ug/mL (50.0-100.0) 07/19/17 16:36 Carbamazepine 8.7 ug/ml (4.0-12.0) 07/19/17 16:36 - Physical Exam Vitals and I&O: Vital Signs Temp 98.7 F 07/27/17 08:00 Pulse 60 07/27/17 11:47 Resp 18 07/27/17 11:47 BP 131/78 07/27/17 08:14 Pulse Ox 91 07/27/17 11:47 Intake & Output 07/26/17 07/27/17 07/27/17 18:59 06:59 18:59 Intake Total 1200 1000 300 Output Total 780 Balance 1200 1000 -480 Weight (lbs) 234 lb 234 lb 9.6 oz 236 lb Intake: Intake, IV Amount 1000 D5-0.9%Ns 1,000 ml @ 60 1000 mls/hr IV .[id number] [facility] Rx #:[id number] Oral 1200 300 Output: Urine 780 Other: # Bowel Movements 0 Stool Characteristics Soft Soft Soft Active Medications: Current Medications Albuterol Sulfate (Albuterol 2.5mg/3ml Neb Ud) 2.5 mg HHN QIDRT [facility] Stop: 09/22/17 14:59 Last Admin: 07/27/17 11:44 Dose: 2.5 mg Aspirin (Aspirin Chewable) 81 mg PO DAILY [facility] Stop: 09/18/17 08:59 Last Admin: 07/27/17 08:13 Dose: 81 mg Benztropine Mesylate (Cogentin) 0.5 mg PO BID [facility] Stop: 09/18/17 17:39 Last Admin: 07/27/17 08:13 Dose: 0.5 mg Buspirone HCl (Buspar) 10 mg PO BID DARA PRN Reason: Protocol Stop: 09/18/17 08:59 Last Admin: 07/27/17 08:13 Dose: 10 mg Carbamazepine (Tegretol) 600 mg PO Q12HR DARA PRN Reason: Protocol Stop: 09/17/17 20:59 Last Admin: 07/27/17 08:12 Dose: 600 mg Carbidopa/Levodopa (Sinemet 25mg-100 Mg) 1 tab PO TID [facility] Stop: 09/17/17 20:59 Last Admin: 07/27/17 08:13 Dose: 1 tab Divalproex Sodium (Depakote Dr) 1,000 mg PO BID DARA PRN Reason: Protocol Stop: 09/18/17 08:59 Last Admin: 07/27/17 08:13 Dose: 1,000 mg Divalproex Sodium (Depakote Dr) 500 mg PO HS DARA PRN Reason: Protocol Stop: 09/17/17 20:59 Last Admin: 07/26/17 20:25 Dose: 500 mg Docusate Sodium (Colace) 100 mg PO DAILY [facility] Stop: 09/18/17 08:59 Last Admin: 07/27/17 08:12 Dose: 100 mg Guaifenesin (Robitussin) 200 mg PO Q4HR PRN PRN Reason: Cough or Congestion Stop: 09/17/17 19:57 Last Admin: 07/23/17 12:28 Dose: 200 mg Dextrose/Sodium Chloride (D5-0.9%Ns) 1,000 mls @ 60 mls/hr IV .[id number] [facility] Stop: 09/20/17 11:59 Last Admin: 07/26/17 23:17 Dose: 60 mls/hr Ipratropium Lee (Atrovent Neb 0.5mg/2.5ml) 0.5 mg HHN QIDRT [facility] Stop: 09/22/17 14:59 Last Admin: 07/27/17 11:44 Dose: 0.5 mg Lactulose (Cephulac) 30 gm PO Q6HR [facility] Stop: 09/18/17 00:00 Last Admin: 07/27/17 11:23 Dose: 30 gm Losartan Potassium (Cozaar) 100 mg PO DAILY [facility] Stop: 09/18/17 08:59 Last Admin: 07/27/17 08:14 Dose: 100 mg Miscellaneous (Vte Chemical Prophylaxis Screen/ Admission) 1 ea [facility] PRN PRN PRN Reason: PROTOCOL Stop: 09/18/17 11:38 Ondansetron HCl (Zofran) 4 mg IV Q8H PRN PRN Reason: Nausea / Vomiting Stop: 09/17/17 19:57 Oxybutynin Chloride (Ditropan) 5 mg PO HS [facility] Stop: 09/17/17 20:59 Last Admin: 07/26/17 20:27 Dose: 5 mg Pantoprazole Sodium (Protonix) 40 mg PO BID [facility] Stop: 09/18/17 08:59 Last Admin: 07/27/17 08:13 Dose: 40 mg Paroxetine HCl (Paxil) 10 mg PO DAILY [facility] PRN Reason: Protocol Stop: 09/18/17 08:59 Last Admin: 07/27/17 08:13 Dose: 10 mg Quetiapine Fumarate (Seroquel) 50 mg PO BID [facility] PRN Reason: Protocol Stop: 09/18/17 08:59 Last Admin: 07/27/17 08:13 Dose: 50 mg General: weak, alert HEENT: NC/AT, PERRLA Neck: Supple Lungs: ronchi Cardiovascular: RRR, Normal S1, Normal S2, without murmur Abdomen: soft, non-tender, non-distended, positive bowel sound Extremities: clear, excoriation Neurological: no change - Procedures Procedures: Procedures Procedure Code Date GROUP PSYCHOTHERAPY 35634 12/06/15 GROUP PSYCHOTHERAPY GZHZZZZ 12/06/15 OTHER GROUP THERAPY 94.44 06/02/14 RECREATIONAL THERAPY 93.81 07/28/11 Internal Medicine Assmt/Plan - Assessment Assessment: ALOC Elevated Ammonia Generalized Weakness hypercholesteremia djd schizoaffective parkinson's - Plan Plan: MONITOR AMMONIA LEVEL IVF FOR HYDRATION AM LABS CONTINUE CURRENT PLAN OF CARE Nutritional Asmnt/Malnutr-PDOC - Dietary Evaluation Malnutrition Findings (Please click <Entered> for more info): Nutritional Asmnt/Malnutrition Start: 07/24/17 15: 55 Text: Status: Complete Freq: Document 07/24/17 15:56 GSUN (Rec: 07/24/17 16:11 [facility] Nutritional Asmnt/Malnutrition Patient General Information Nutritional Screening Moderate Risk Screening Diagnosis ALOC, elevated ammonia Pertinent Medical Hx/Surgical Hx CVA, DJD, hypercholesterolemia , schizoaffective disorder, Parkinson's Subjective Information 66 year old male from SNF. Pt is a questionable historian and was verbally inappropriate during visit. Scenic Artist explained current diet order, pt expressed understandning. Pt appeared overweight, no muscle fat wasting noted. Avg PO intake 75-100% of meals since adm, meeting nutritional needs. Pt denied nutritional concerns at this time. Current Diet Order/ Nutrition Support Low protein, low sodium Pertinent Medications D5-0.9%ns, Colace, Cephulac, Zofran, Protonix, Seroquel Pertinent Labs Ammonia 95-147H since adm Nutritional Hx/Data Height 6 ft Height (Calculated Centimeters) 182.9 Current Weight (lbs) 233 lb 6.4 oz Weight (Calculated Kilograms) 105.9 Weight (Calculated Grams) 071132.5 [place] Body Weight 178 Weight Status Obese GI Symptoms Food Allergies No Usual diet at home [facility]: [facility] soft, chopped meat. Skin Integrity/Comment: Jani 12. Reddened upper chest and left upper arm. Current %PO Good (75-100%) Estimated Nutritional Goals BEE in Kcals: Adj wt of IBW Calories/Kcals/Kg AdjBW 191.9lb/87.2kg Kcals Calculated 2180-2616kcal (25-30kcal/kg) Protein: Adj wt of IBW Protein Calculated 52-70g (0.6-0.8g/kg) Fluid: ml 2180-2616ml (1ml/kcal) Nutritional Problem 1. Problem Problem Excessive protein intake related to Etiology estimated protein needs aeb Signs/Symptoms: elevated ammonia levels Intervention/Recommendation Comments 1. Continue with current diet order as pt tolerates. Avg PO intake is adequate. Expected Outcomes/Goals Expected Outcomes/Goals 1. PO intake continue to meet at least 75% of estimated nutritional needs.
[2017-07-27] MEDS: D5-0.9%NS 1,000 ML IV SCH (16:51)
[2017-07-28] MEDS: Lactulose 10 Gm/15 mL 30mL UDC PO SCH ×4 (00:37→18:49)
[2017-07-28 05:27] LABS: % BASOPHILS 0.1 % (0.0-2.0); % EOSINOPHILS 7.9 % (0.0-5.0); % LYMPHOCYTES 29.3 % (20.0-50.0); % MONOCYTES 12.2 % (2.0-10.0); % NEUTROPHILS 50.5 % (40.0-80.0); HEMATOCRIT 42.7 % (41.0-60); HEMOGLOBIN 14.1 gm/dL (12-16); MEAN CELL VOLUME 97.9 fl (80-99); MEAN CORPUSCULAR HEMOGLOBIN 32.4 pg (26.0-30.0); MEAN CORPUSCULAR HGB CONC 33.1 pg (28.0-36.0); MEAN PLATELET VOLUME 7.7 fl; NEUTROPHILE ABSOLUTE 2.5 Th/cmm (1.8-8.0); PLATELET COUNT 155 Th/cmm (150-400); RED BLOOD COUNT 4.37 Mil/cmm (4.30-5.70); RED CELL DISTRIBUTION WIDTH 13.9 % (11.5-20.0); WHITE BLOOD COUNT 4.9 Th/cmm (4.8-10.8)
[2017-07-28 05:46] LABS: ANION GAP 6.1 (7.0-16.0); BUN - UREA NITROGEN 9 mg/dL (7-25); BUN/CREATININE RATIO 11.3; CALCIUM SERUM 8.6 mg/dL (8.6-10.3); CARBON DIOXIDE 31.6 mEq/L (21.0-31.0); CHLORIDE 97 mEq/L (98-107); CREATININE - SERUM 0.8 mg/dL (0.7-1.3); GLUCOSE 92 mg/dL (70-105); POTASSIUM SERUM 3.7 mEq/L (3.5-5.1); SODIUM SERUM 131 mEq/L (136-145)
[2017-07-28] MEDS: Ipratropium Neb 0.5 mg/2.5 mL UD HHN SCH ×4 (07:27→19:27)
[2017-07-28] MEDS: Albuterol Nebulizer 2.5mg/3mL HHN SCH ×4 (07:27→19:27)
[2017-07-28] MEDS: Pantoprazole 40 mg EC Tab PO SCH ×2 (08:33→17:16)
[2017-07-28] MEDS: Benztropine 1 MG TAB PO SCH ×2 (08:33→17:16)
[2017-07-28] MEDS: Aspirin 81mg Chewable Tab PO SCH (08:34)
[2017-07-28] MEDS: D5-0.9%NS 1,000 ML IV SCH (10:30)
--- NOTE | 2017-07-28 21:19 | Discharge Summary ---
DATE OF DISCHARGE: 07/27/2017 CHIEF COMPLAINT: Change in mental status and high ammonia level. FINAL DIAGNOSES: Hepatic encephalopathy, high ammonia, altered level of consciousness, generalized weakness, degenerative joint disease, hypercholesterolemia, schizoaffective disorder, Parkinson, and obesity. HISTORY: This is a 66-year-old male from nursing facility, brought in secondary to acting erratically. The patient's ammonia apparently was elevated. The patient was transferred for further management. PHYSICAL EXAMINATION: VITAL SIGNS: Blood pressure 118/64, respirations 18, pulse 80, temperature 98.6. GENERAL: The patient is morbidly obese middle-aged male, in no acute distress. NECK: Supple. No mass. LUNGS: Equal breath sounds, few rhonchi. HEART: Regular rate and rhythm without systolic ejection murmur. ABDOMEN: Soft, globular. Positive bowel sounds. EXTREMITIES: Positive excoriations. HOSPITAL COURSE: The patient was admitted to medical floor, continued on IV hydration. Neurological workup was done, there was a question of pneumonia. The patient was apparently started on IV antibiotics. CT showed linear parenchymal density in left lower lobe, ____. The patient condition was stabilized and stable to discharge. The patient was seen by Psychiatry during the admission for adjustment of his psychotropic medications. CONDITION ON DISCHARGE: Fair. DISCHARGE INSTRUCTIONS: The patient is to continue current management and will be discharged to nursing facility with current regimen. JOB# [id number]
== END 2017-07-27 20:03 | disposition home or self-care (01) | DRG 441 ==
LOC: ER 16:02 → MSI 18:00
PROVIDERS: ADMIT Internal Medicine; ATTEND Internal Medicine
DX: K72.00 Acute and subacute hepatic failure without coma (principal); J18.9 Pneumonia, unspecified organism; E87.1 Hypo-osmolality and hyponatremia; G20 Parkinson's disease; F03.90 Unspecified dementia, unspecified severity, without behavioral disturbance, psychotic disturbance, mood disturbance, and anxiety; G81.94 Hemiplegia, unspecified affecting left nondominant side; Z68.1 Body mass index [BMI] 19.9 or less, adult; M19.90 Unspecified osteoarthritis, unspecified site; F25.9 Schizoaffective disorder, unspecified; G40.909 Epilepsy, unspecified, not intractable, without status epilepticus; I10 Essential (primary) hypertension; K21.9 Gastro-esophageal reflux disease without esophagitis; F17.210 Nicotine dependence, cigarettes, uncomplicated; E78.00 Pure hypercholesterolemia, unspecified; F41.9 Anxiety disorder, unspecified; E66.01 Morbid (severe) obesity due to excess calories; Z86.73 Personal history of transient ischemic attack (TIA), and cerebral infarction without residual deficits; Z88.0 Allergy status to penicillin; Z82.49 Family history of ischemic heart disease and other diseases of the circulatory system
CPT/HCPCS: 36415-UA; 71010-TC; 71250-TC; 80048-TC; 80076-TC; 80156-TC; 80164-TC; 82140-TC; 85025-TC; 90779; 94640; 94760; J7042; J7613; Z7610

== ENCOUNTER 2017-09-17 16:57 | Inpatient (IN) | payer MEDICARE, MEDICAID ==
--- NOTE | 2017-09-17 17:18 | ED Physician Chart ---
ED Chief Complaint/HPI - Patient Information Date Seen:: 09/17/17 Time Seen:: 17:05 Chief Complaint:: Hematochezia History of Present Illness:: onset today of hematochezia and melena; no report of H/As, neck pain, C/P, SOB, Abd. Pain, A/N/v/D/C, fever, chills, or urinary s/s Allergies:: Allergies Allergy/AdvReac Type Severity Reaction Status Date / Time Penicillins Allergy Verified 07/19/17 16:51 Vitals:: Vital Signs - 8 hr 09/17/17 17:06 Temp 98.0 F HR 67 RR 16 BP 107/79 O2 Sat % 95 Historian:: Patient, EMS Review:: Nurse's Note Reviewed, EMS run form Reviewed, Transfer documents Reviewed ED Review of Systems - Review of Systems General/Constitutional: No fever, No chills, No weight loss, No weakness, No diaphoresis, No edema, No loss of appetite Skin: No skin lesions, No rash, No bruising Head: No headache, No light-headedness Eyes: No loss of vision, No pain, No diplopia ENT: No earache, No nasal drainage, No sore throat, No tinnitus Neck: No neck pain, No swelling, No thyromegaly, No stiffness, No mass noted Cardio Vascular: No chest pain, No palpitations, No PND, No orthopnea, No edema Pulmonary: No SOB, No cough, No sputum, No wheezing GI: No nausea, No vomiting, No diarrhea, No pain, Melena, Hematochezia, No constipation, No hematemesis G/U: No dysuria, No frequency, No hematuria Musculoskeletal: No bone or joint pain, No back pain, No muscle pain Endocrine: No polyuria, No polydipsia Psychiatric: Prior psych history, Depression, No anxiety, No suicidal ideation, No homicidal ideation, Auditory hallucination, No visual hallucination Hematopoietic: No bruising, No lymphadenopathy Allergic/Immuno: No urticaria, No angioedema Neurological: No syncope, No focal symptoms, No weakness, No paresthesia, No headache, No seizure, No dizziness, No confusion, No vertigo ED Past Medical History - Past Medical History Obtainable: Yes Past Medical History: HTN, Dyslipidemia, PUD/GERD Family History: Diabetes Melitus, HTN Social History: Non Smoker, No Alcohol, No Drug Use, Single, Care Facility Surgical History: None Psychiatricy History: Depression, Schizophrenia, Bipolar Medication: Reviewed Family Medical History - Family Member Mother History Unknown: Yes ED Physical Exam - Physical Examination General/Constitutional: Awake, Well-developed, well-nourished, Alert, No distress, GCS 15, Non-toxic appearing, Ambulatory Head: Atraumatic Eyes: Lids, conjuctiva normal, PERRL, EOMI Skin: Nl inspection, No rash, No skin lesions, No ecchymosis, Well hydrated, No lymphadenopathy ENMT: External ears, nose nl, TM canals nl, Nasal exam nl, Lips, teeth, gums nl , Oropharynx nl, Tonsils nl Neck: Nontender, Full ROM w/o pain, No JVD, No nuchal rigidity, No bruit, No mass, No stridor Respiratory: Nl effort/Exclusion, Clear to Auscultation, No Wheeze/Rhonchi/Rales Cardio Vascular: RRR, No murmur, gallop, rubs, NL S1 S2, Carotid/Femoral/Distal pulses equal bilaterally GI: No tenderness/rebounding/guarding, No organomegaly, No hernia, Normal BS's, Nondistended, No mass/bruits, No McBurney tenderness Other GI comments:: + stool for blood : No CVA tenderness Extremities: No tenderness or effusion, Full ROM, normal strength in all extremities, No edema, Normal digits & nails Neuro/Psych: Alert/oriented, DTR's symmetric, Normal sensory exam, Normal motor strength, Judgement/insight normal, Mood normal, Normal gait, No focal deficits Misc: Normal back, No paraspinal tenderness ED Labs/Radiology/EKG Results - Lab Results Comments:: Na+: 131; Hct: 38.9; - EKG Interpretations EKG Time:: 17:32 Rate & Rhythm: 60; NSR Comments:: non-specific st-t changes ED Septic Shock - . Is Septic Shock (SBP<90, OR Lactate>4 mmol\L) present?: No - <6hrs of presentation: Vital Signs: Vital Signs - 8 hr 09/17/17 17:06 Temp 98.0 F HR 67 RR 16 BP 107/79 O2 Sat % 95 ED Reassessment (Disposition) - Reassessment Reassessment Condition:: Improved - Diagnosis Diagnosis:: Hyponatremia; Anemia; Hematochezia; GI Bleed - Aftercare/Follow up Instructions Aftercare/Follow-Up Instructions:: Counseled pt regarding lab results/diagnosis & need follow up, Counseled pt & family regarding lab results/diagnosis & need follow up - Patient Disposition Discharge/Transfer:: Acute Care w/in this hosp Accepting Physician:: Dr. Harden Time Called:: [phone] Time Responded:: 18:40 Admitted to:: Telemetry Spoke to:: Dr. Harden Admitting Medical Physician:: Dr. Harden Condition at Disposition:: Stable, Improved
[2017-09-17] MEDS ORDERED: Sodium Chloride 0.9% 1,000 ML IV ONE (17:19)
[2017-09-17 17:46] LABS: % BASOPHILS 0.1 % (0.0-2.0); % EOSINOPHILS 3.1 % (0.0-5.0); % LYMPHOCYTES 25.4 % (20.0-50.0); % NEUTROPHILS 64.4 % (40.0-80.0); HEMATOCRIT 38.9 % (41.0-60); HEMOGLOBIN 13.2 gm/dL (12-16); MEAN CELL VOLUME 95.7 fl (80-99); MEAN CORPUSCULAR HEMOGLOBIN 32.5 pg (26.0-30.0); MEAN CORPUSCULAR HGB CONC 33.9 pg (28.0-36.0); MEAN PLATELET VOLUME 7.7 fl; NEUTROPHILE ABSOLUTE 5.1 Th/cmm (1.8-8.0); RED BLOOD COUNT 4.07 Mil/cmm (4.30-5.70); RED CELL DISTRIBUTION WIDTH 13.2 % (11.5-20.0)
[2017-09-17 17:47] LABS: PLATELET COUNT 299 Th/cmm (150-400); WHITE BLOOD COUNT 7.8 Th/cmm (4.8-10.8)
[2017-09-17 17:59] LABS: INR 1.11 (0.5-1.4); PROTHROMBIN TIME (TEST) 11.6 SECONDS (9.5-11.5)
[2017-09-17 18:04] LABS: ALB/GLOB RATIO 1.1 (1.0-1.8); ALKALINE PHOSPHATASE 41 U/L (34-104); ANION GAP 7.8 (7.0-16.0); BILIRUBIN,TOTAL 0.4 mg/dL (0.3-1.0); BUN - UREA NITROGEN 16 mg/dL (7-25); BUN/CREATININE RATIO 17.8; CALCIUM SERUM 9.2 mg/dL (8.6-10.3); CHLORIDE 99 mEq/L (98-107); CHOLESTEROL 123 mg/dL (<200); CREATININE - SERUM 0.9 mg/dL (0.7-1.3); GLUCOSE 99 mg/dL (70-105); POTASSIUM SERUM 3.8 mEq/L (3.5-5.1); SGOT 17 U/L (13-39); SGPT/ALT 4 U/L (7-52); SODIUM SERUM 131 mEq/L (136-145); TRIGLYCERIDES 253 mg/dL (<150)
[2017-09-17 18:05] LABS: AMYLASE SERUM 38 U/L (29-103); LIPASE 22 U/L (11-82)
[2017-09-17] MEDS: Atorvastatin Calcium 10 MG TAB PO SCH (22:30)
[2017-09-17] MEDS: D5-0.9%NS 1,000 ML IV SCH (22:33)
[2017-09-17 23:00] VITALS: BP 95/46
[2017-09-17] MEDS: Lactulose 10 Gm/15 mL 30mL UDC PO SCH (23:15)
--- NOTE | 2017-09-18 07:47 | Diagnostic Imaging Report ---
CHEST X-RAY: AP view INDICATION: pain COMPARISON: Chest x-ray 07/24/[address] chest on 07/25/2017 FINDINGS: Low lung volumes are seen with left basal density. Mild cardiomegaly is noted. Degenerative changes of the spine are noted. IMPRESSION: Low lung volumes and left basal density. When compared to prior exams, findings may be due to superimposition of soft tissue structures. A small left effusion and/or left basal infiltrate is considered less likely, however clinical correlation is recommended. Mild cardiomegaly.
[2017-09-18] MEDS: Lactulose 10 Gm/15 mL 30mL UDC PO SCH ×4 (08:48→21:15)
[2017-09-18] MEDS: Triple Antibiotic 0.94 gm Pkt TP SCH (08:49)
[2017-09-18] MEDS: Fenofibrate, Micronized 134 mg Cap PO SCH (08:49)
[2017-09-18] MEDS: Benztropine 1 MG TAB PO SCH ×2 (08:49→16:39)
--- NOTE | 2017-09-18 12:26 | Internal Medicine Prog Note ---
Internal Medicine Subjective - Subjective Service Date: 09/18/17 ([id number] HNP DICTATED) Patient seen and examined:: with staff Internal Medicine Objective - Results Result Diagrams: 09/17/17 17:39 09/17/17 17:39 Recent Labs: Laboratory Last Values WBC 7.8 Th/cmm (4.8-10.8) D 09/17/17 17:39 RBC 4.07 Mil/cmm (4.30-5.70) L 09/17/17 17:39 Hgb 13.2 gm/dL (12-16) 09/17/17 17:39 Hct 38.9 % (41.0-60) L 09/17/17 17:39 MCV 95.7 fl (80-99) 09/17/17 17:39 MCH 32.5 pg (26.0-30.0) H 09/17/17 17:39 MCHC Differential 33.9 pg (28.0-36.0) 09/17/17 17:39 RDW 13.2 % (11.5-20.0) 09/17/17 17:39 Plt Count 299 Th/cmm (150-400) D 09/17/17 17:39 MPV 7.7 fl 09/17/17 17:39 Neutrophils % 64.4 % (40.0-80.0) 09/17/17 17:39 Lymphocytes % 25.4 % (20.0-50.0) 09/17/17 17:39 Monocytes % 7.0 % (2.0-10.0) 09/17/17 17:39 Eosinophils % 3.1 % (0.0-5.0) 09/17/17 17:39 Basophils % 0.1 % (0.0-2.0) 09/17/17 17:39 PT 11.6 SECONDS (9.5-11.5) H 09/17/17 17:39 INR 1.11 (0.5-1.4) 09/17/17 17:39 Sodium 131 mEq/L (136-145) L 09/17/17 17:39 Potassium 3.8 mEq/L (3.5-5.1) 09/17/17 17:39 Chloride 99 mEq/L (98-107) 09/17/17 17:39 Carbon Dioxide 28.0 mEq/L (21.0-31.0) 09/17/17 17:39 Anion Gap 7.8 (7.0-16.0) 09/17/17 17:39 BUN 16 mg/dL (7-25) 09/17/17 17:39 Creatinine 0.9 mg/dL (0.7-1.3) 09/17/17 17:39 Est GFR ( Amer) > 60.0 ml/min (>90) 09/17/17 17:39 Est GFR (Non-Af Amer) > 60.0 ml/min 09/17/17 17:39 BUN/Creatinine Ratio 17.8 09/17/17 17:39 Glucose 99 mg/dL (70-105) 09/17/17 17:39 Calcium 9.2 mg/dL (8.6-10.3) 09/17/17 17:39 Total Bilirubin 0.4 mg/dL (0.3-1.0) 09/17/17 17:39 AST 17 U/L (13-39) 09/17/17 17:39 ALT 4 U/L (7-52) L 09/17/17 17:39 Alkaline Phosphatase 41 U/L (34-104) 09/17/17 17:39 Creatine Kinase 90 U/L (30-223) 09/17/17 17:39 Troponin I ng/mL (0.01-0.05) 09/17/17 17:39 B-Natriuretic Peptide 33.3 pg/mL (5.0-100.0) 09/17/17 17:39 Total Protein 7.4 gm/dL (6.0-8.3) 09/17/17 17:39 Albumin 3.8 gm/dL (4.2-5.5) L 09/17/17 17:39 Globulin 3.6 gm/dL 09/17/17 17:39 Albumin/Globulin Ratio 1.1 (1.0-1.8) 09/17/17 17:39 Triglycerides 253 mg/dL (<150) H 09/17/17 17:39 Cholesterol 123 mg/dL (<200) 09/17/17 17:39 LDL Cholesterol Direct 54 mg/dL (75-193) L 09/17/17 17:39 HDL Cholesterol 35 mg/dL (23-92) 09/17/17 17:39 Amylase 38 U/L (29-103) 09/17/17 17:39 Lipase 22 U/L (11-82) 09/17/17 17:39 - Physical Exam Vitals and I&O: Vital Signs Temp 96.6 F 09/18/17 08:00 Pulse 51 09/18/17 08:48 Resp 20 09/18/17 08:00 BP 101/55 09/18/17 08:48 Pulse Ox 93 09/18/17 08:00 Intake & Output 09/17/17 09/18/17 09/18/17 18:59 06:59 18:59 Intake Total 400 Output Total 920 Balance -520 Weight (lbs) 225 lb Intake: Oral 400 Output: Urine 920 Other: # Bowel Movements 0 Active Medications: Current Medications Acetaminophen (Tylenol) 650 mg PO Q4H PRN PRN Reason: Pain Or Fever above 101 Stop: 11/16/17 18:56 Atorvastatin Calcium (Lipitor) 20 mg PO HS DARA PRN Reason: Protocol Stop: 11/16/17 20:59 Last Admin: 09/17/17 22:30 Dose: 20 mg Benztropine Mesylate (Cogentin) 1 mg PO BID [facility] Stop: 11/17/17 08:59 Last Admin: 09/18/17 08:49 Dose: 1 mg Buspirone HCl (Buspar) 10 mg PO BID [facility]ARA PRN Reason: Protocol Stop: 11/17/17 08:59 Carbamazepine (Tegretol) 600 mg PO Q12HR DARA PRN Reason: Protocol Stop: 11/16/17 20:59 Carbidopa/Levodopa (Sinemet 25mg-100 Mg) 1 tab PO TID [facility] Stop: 11/16/17 20:59 Last Admin: 09/18/17 08:49 Dose: 1 tab Divalproex Sodium (Depakote Dr) 1,000 mg PO BID [facility]ARA PRN Reason: Protocol Stop: 11/17/17 08:59 Divalproex Sodium (Depakote Dr) 500 mg PO HS [facility]ARA PRN Reason: Protocol Stop: 11/16/17 20:59 Fenofibrate (Tricor) 134 mg PO DAILY [facility] Stop: 11/17/17 08:59 Last Admin: 09/18/17 08:49 Dose: 134 mg Dextrose/Sodium Chloride (D5-0.9%Ns) 1,000 mls @ 80 mls/hr IV .[id number] [facility] Stop: 11/16/17 18:59 Last Admin: 09/17/17 22:33 Dose: 80 mls/hr Lactulose (Cephulac) 30 gm PO QID [facility] Stop: 11/16/17 20:59 Last Admin: 09/18/17 08:48 Dose: 30 gm Levocarnitine (Carnitor) mg PO DAILY [facility] Stop: 11/17/17 08:59 Losartan Potassium (Cozaar) 100 mg PO DAILY [facility] Stop: 11/17/17 08:59 Last Admin: 09/18/17 08:48 Dose: Not Given Neomycin/Polymyxin/Bacitracin (Triple Antibiotic Pkt) 1 pkt TP DAILY [facility] Stop: 11/17/17 08:59 Last Admin: 09/18/17 08:49 Dose: 1 pkt Ondansetron HCl (Zofran) 4 mg IV Q8H PRN PRN Reason: Nausea / Vomiting Stop: 11/16/17 18:56 Oxybutynin Chloride (Ditropan) 5 mg PO HS [facility] Stop: 11/16/17 20:59 Last Admin: 09/17/17 22:30 Dose: 5 mg Pantoprazole Sodium (Protonix) 40 mg IVP BID [facility] Stop: 11/17/17 08:59 Last Admin: 09/18/17 08:49 Dose: 40 mg Paroxetine HCl (Paxil) 10 mg PO DAILY [facility] PRN Reason: Protocol Stop: 11/17/17 08:59 Quetiapine Fumarate (Seroquel) 50 mg PO BID [facility] PRN Reason: Protocol Stop: 11/17/17 08:59 - Procedures Procedures: Procedures Procedure Code Date GROUP PSYCHOTHERAPY 82630 12/06/15 GROUP PSYCHOTHERAPY GZHZZZZ 12/06/15 OTHER GROUP THERAPY 94.44 06/02/14 RECREATIONAL THERAPY 93.81 07/28/11 Internal Medicine Assmt/Plan - Assessment Assessment: ACUTE UPPER GI BLEED HYPONATREMIA MILD PROTEIN FRANCI MALNUTRITION DJD HYPERCHOLESTEREMIA
[2017-09-18] MEDS: D5-0.9%NS 1,000 ML IV SCH (13:47)
[2017-09-18] MEDS ORDERED: Magnesium Citrate 1.75 GM/300 mL Bottle PO ONE (15:30)
--- NOTE | 2017-09-18 16:57 | History & Physical ---
ADMIT DATE: 09/18/2017 CHIEF COMPLAINT: Bloody stool. HISTORY OF PRESENT ILLNESS: This is a 66-year-old male who is a resident of [facility] who was brought here to [facility] due to blood in stool for further management. The patient is now admitted to the med/surg unit. PAST MEDICAL HISTORY: CVA, DJD, hypercholesterolemia, schizoaffective disorder, Parkinson's, high ammonia level. PAST SURGICAL HISTORY: PRODUCT DEVELOPMENT COORDINATOR shunt and craniotomy. ALLERGIES: PENICILLIN. MEDICATIONS: Tylenol, aspirin, Lipitor, Cogentin, Sinemet, Depakote, lactulose, magnesium, multivitamins, Ditropan, BuSpar. FAMILY HISTORY: Noncontributory. SOCIAL HISTORY: The patient is a senior care resident, requiring 24-hour nursing care. PHYSICAL EXAMINATION: GENERAL: The patient is obese, awake, no apparent distress. VITAL SIGNS: Temperature 96.6, heart rate 51, blood pressure is 101/55, respirations 20, O2 93%. HEENT: Head; normocephalic, atraumatic. NECK: Supple. No mass. LUNGS: Clear bilaterally. HEART: ____. ABDOMEN: Soft, nontender. LABORATORY DATA: WBC 7.8, H and H 13.2 and 38.9, platelets 299. Sodium 131, potassium 3.8, chloride 99, BUN 16, creatinine 0.9. DIAGNOSTICS: The patient had a chest x-ray done and the impression is low lung volumes and left basal density when compared to prior exam ____ soft tissue structures, a small left effusion or left basal infiltrate, consider less likely. ASSESSMENT: Acute gastrointestinal bleed, hyponatremia, mild protein-calorie malnutrition, generalized weakness, DJD, hypercholesterolemia, schizoaffective disorder, Parkinson's. PLAN: We will get GI on the case. We will monitor patient's H and H. Keep patient on IV fluids for hydration. We will have patient on Protonix IV. We will have a Psychiatry on the case as well. We will continue to follow this patient. JOB# [id number]
[2017-09-18] MEDS: Atorvastatin Calcium 10 MG TAB PO SCH (21:15)
[2017-09-19] MEDS: D5-0.9%NS 1,000 ML IV SCH (04:26)
[2017-09-19 06:12] LABS: % EOSINOPHILS 1.9 % (0.0-5.0); % LYMPHOCYTES 16.3 % (20.0-50.0); % MONOCYTES 7.1 % (2.0-10.0); % NEUTROPHILS 74.7 % (40.0-80.0); HEMATOCRIT 39.1 % (41.0-60); MEAN CELL VOLUME 96.4 fl (80-99); MEAN CORPUSCULAR HGB CONC 33.2 pg (28.0-36.0); MEAN PLATELET VOLUME 8.6 fl; NEUTROPHILE ABSOLUTE 7.1 Th/cmm (1.8-8.0); PLATELET COUNT 278 Th/cmm (150-400); RED BLOOD COUNT 4.05 Mil/cmm (4.30-5.70); RED CELL DISTRIBUTION WIDTH 13.3 % (11.5-20.0)
[2017-09-19 06:16] LABS: WHITE BLOOD COUNT 9.5 Th/cmm (4.8-10.8)
[2017-09-19 06:31] LABS: ANION GAP 8.3 (7.0-16.0); BUN - UREA NITROGEN 8 mg/dL (7-25); BUN/CREATININE RATIO 11.4; CALCIUM SERUM 8.9 mg/dL (8.6-10.3); CARBON DIOXIDE 27.5 mEq/L (21.0-31.0); CHLORIDE 104 mEq/L (98-107); CREATININE - SERUM 0.7 mg/dL (0.7-1.3); GLUCOSE 102 mg/dL (70-105); POTASSIUM SERUM 3.8 mEq/L (3.5-5.1); SODIUM SERUM 136 mEq/L (136-145)
[2017-09-19 07:53] LABS: INR 1.2 (0.5-1.4); PROTHROMBIN TIME (TEST) 12.6 SECONDS (9.5-11.5)
[2017-09-19] MEDS: Lactulose 10 Gm/15 mL 30mL UDC PO SCH ×3 (08:27→17:04)
[2017-09-19] MEDS: Benztropine 1 MG TAB PO SCH ×2 (08:27→17:04)
[2017-09-19] MEDS: Triple Antibiotic 0.94 gm Pkt TP SCH (08:27)
[2017-09-19] MEDS: Fenofibrate, Micronized 134 mg Cap PO SCH (08:27)
[2017-09-19] MEDS ORDERED: Lidocaine 2% Gel 5 mL TP ONE (08:45)
--- NOTE | 2017-09-19 11:35 | Internal Medicine Prog Note ---
Internal Medicine Subjective - Subjective Service Date: 09/19/17 Patient seen and examined:: with staff Patient is:: awake, verbal Per staff patient has:: tolerating meds Internal Medicine Objective - Results Result Diagrams: 09/19/17 05:18 09/19/17 05:18 Recent Labs: Laboratory Last Values WBC 9.5 Th/cmm (4.8-10.8) D 09/19/17 05:18 RBC 4.05 Mil/cmm (4.30-5.70) L 09/19/17 05:18 Hgb 13.0 gm/dL (12-16) 09/19/17 05:18 Hct 39.1 % (41.0-60) L 09/19/17 05:18 MCV 96.4 fl (80-99) 09/19/17 05:18 MCH 32.0 pg (26.0-30.0) H 09/19/17 05:18 MCHC Differential 33.2 pg (28.0-36.0) 09/19/17 05:18 RDW 13.3 % (11.5-20.0) 09/19/17 05:18 Plt Count 278 Th/cmm (150-400) 09/19/17 05:18 MPV 8.6 fl 09/19/17 05:18 Neutrophils % 74.7 % (40.0-80.0) 09/19/17 05:18 Lymphocytes % 16.3 % (20.0-50.0) L 09/19/17 05:18 Monocytes % 7.1 % (2.0-10.0) 09/19/17 05:18 Eosinophils % 1.9 % (0.0-5.0) 09/19/17 05:18 Basophils % 0.0 % (0.0-2.0) 09/19/17 05:18 PT 12.6 SECONDS (9.5-11.5) H 09/19/17 05:18 INR 1.20 (0.5-1.4) 09/19/17 05:18 PTT (Actin FS) 23.9 SECONDS (26.0-38.0) L 09/19/17 05:18 Sodium 136 mEq/L (136-145) 09/19/17 05:18 Potassium 3.8 mEq/L (3.5-5.1) 09/19/17 05:18 Chloride 104 mEq/L (98-107) 09/19/17 05:18 Carbon Dioxide 27.5 mEq/L (21.0-31.0) 09/19/17 05:18 Anion Gap 8.3 (7.0-16.0) 09/19/17 05:18 BUN 8 mg/dL (7-25) 09/19/17 05:18 Creatinine 0.7 mg/dL (0.7-1.3) 09/19/17 05:18 Est GFR ( Amer) > 60.0 ml/min (>90) 09/19/17 05:18 Est GFR (Non-Af Amer) > 60.0 ml/min 09/19/17 05:18 BUN/Creatinine Ratio 11.4 09/19/17 05:18 Glucose 102 mg/dL (70-105) 09/19/17 05:18 POC Glucose 112 MG/DL (70 - 105) H 09/19/17 06:24 Calcium 8.9 mg/dL (8.6-10.3) 09/19/17 05:18 Total Bilirubin 0.4 mg/dL (0.3-1.0) 09/17/17 17:39 AST 17 U/L (13-39) 09/17/17 17:39 ALT 4 U/L (7-52) L 09/17/17 17:39 Alkaline Phosphatase 41 U/L (34-104) 09/17/17 17:39 Creatine Kinase 90 U/L (30-223) 09/17/17 17:39 Troponin I ng/mL (0.01-0.05) 09/17/17 17:39 B-Natriuretic Peptide 33.3 pg/mL (5.0-100.0) 09/17/17 17:39 Total Protein 7.4 gm/dL (6.0-8.3) 09/17/17 17:39 Albumin 3.8 gm/dL (4.2-5.5) L 09/17/17 17:39 Globulin 3.6 gm/dL 09/17/17 17:39 Albumin/Globulin Ratio 1.1 (1.0-1.8) 09/17/17 17:39 Triglycerides 253 mg/dL (<150) H 09/17/17 17:39 Cholesterol 123 mg/dL (<200) 09/17/17 17:39 LDL Cholesterol Direct 54 mg/dL (75-193) L 09/17/17 17:39 HDL Cholesterol 35 mg/dL (23-92) 09/17/17 17:39 Amylase 38 U/L (29-103) 09/17/17 17:39 Lipase 22 U/L (11-82) 09/17/17 17:39 - Physical Exam Vitals and I&O: Vital Signs Temp 97.2 F 09/19/17 08:00 Pulse 66 09/19/17 08:27 Resp 18 09/19/17 08:00 BP 113/41 09/19/17 08:27 Pulse Ox 92 09/19/17 08:00 Intake & Output 09/18/17 09/19/17 09/19/17 18:59 06:59 18:59 Intake Total 1374.667 774.666 Balance 1374.667 774.666 Weight (lbs) 223 lb 8 oz Intake: Intake, IV Amount 1374.667 774.666 D5-0.9%Ns 1,000 ml @ 80 1374.667 774.666 mls/hr IV .[id number] [facility] Rx #:[id number] Active Medications: Current Medications Acetaminophen (Tylenol) 650 mg PO Q4H PRN PRN Reason: Pain Or Fever above 101 Stop: 11/16/17 18:56 Atorvastatin Calcium (Lipitor) 20 mg PO HS DARA PRN Reason: Protocol Stop: 11/16/17 20:59 Last Admin: 09/18/17 21:15 Dose: 20 mg Benztropine Mesylate (Cogentin) 1 mg PO BID [facility] Stop: 11/17/17 08:59 Last Admin: 09/19/17 08:27 Dose: Not Given Buspirone HCl (Buspar) 10 mg PO BID DARA PRN Reason: Protocol Stop: 11/17/17 08:59 Carbamazepine (Tegretol) 600 mg PO Q12HR DARA PRN Reason: Protocol Stop: 11/16/17 20:59 Carbidopa/Levodopa (Sinemet 25mg-100 Mg) 1 tab PO TID DARA Stop: 11/16/17 20:59 Last Admin: 09/19/17 08:27 Dose: Not Given Divalproex Sodium (Depakote Dr) 1,000 mg PO BID DARA PRN Reason: Protocol Stop: 11/17/17 08:59 Divalproex Sodium (Depakote Dr) 500 mg PO HS DARA PRN Reason: Protocol Stop: 11/16/17 20:59 Fenofibrate (Tricor) 134 mg PO DAILY DARA Stop: 11/17/17 08:59 Last Admin: 09/19/17 08:27 Dose: Not Given Dextrose/Sodium Chloride (D5-0.9%Ns) 1,000 mls @ 80 mls/hr IV .[id number] DARA Stop: 11/16/17 18:59 Last Infusion: 09/19/17 06:18 Dose: 80 mls/hr Lactulose (Cephulac) 30 gm PO QID DARA Stop: 11/16/17 20:59 Last Admin: 09/19/17 08:27 Dose: Not Given Levocarnitine (Carnitor) mg PO DAILY DARA Stop: 11/17/17 08:59 Losartan Potassium (Cozaar) 100 mg PO DAILY DARA Stop: 11/17/17 08:59 Last Admin: 09/19/17 08:27 Dose: Not Given Neomycin/Polymyxin/Bacitracin (Triple Antibiotic Pkt) 1 pkt TP DAILY [facility] Stop: 11/17/17 08:59 Last Admin: 09/19/17 08:27 Dose: Not Given Ondansetron HCl (Zofran) 4 mg IV Q8H PRN PRN Reason: Nausea / Vomiting Stop: 11/16/17 18:56 Oxybutynin Chloride (Ditropan) 5 mg PO HS [facility] Stop: 11/16/17 20:59 Last Admin: 09/18/17 21:16 Dose: 5 mg Pantoprazole Sodium (Protonix) 40 mg IVP BID DARA Stop: 11/17/17 08:59 Last Admin: 09/19/17 08:32 Dose: 40 mg Paroxetine HCl (Paxil) 10 mg PO DAILY [facility] PRN Reason: Protocol Stop: 11/17/17 08:59 Quetiapine Fumarate (Seroquel) 50 mg PO BID DARA PRN Reason: Protocol Stop: 11/17/17 08:59 General: alert, obese HEENT: NC/AT, PERRLA Neck: Supple Lungs: CTAB Cardiovascular: RRR, Normal S1, Normal S2, without murmur Abdomen: soft, non-distended, positive bowel sound Neurological: alert - Procedures Procedures: Procedures Procedure Code Date GROUP PSYCHOTHERAPY 51786 12/06/15 GROUP PSYCHOTHERAPY [id number] 12/06/15 OTHER GROUP THERAPY 94.44 06/02/14 RECREATIONAL THERAPY 93.81 07/28/11 Internal Medicine Assmt/Plan - Assessment Assessment: ACUTE UPPER GI BLEED HYPONATREMIA MILD PROTEIN FRANCI MALNUTRITION DJD HYPERCHOLESTEREMIA - Plan Plan: as ordered by GI CTA for sma sval to be done today, once cleared by GI will dc patient continue current plan of care
--- NOTE | 2017-09-19 12:32 | Operative Report ---
DATE OF SURGERY: 09/19/2017 INPATIENT COLONOSCOPY REPORT ENDOSCOPIST: Sergo Olivares MD PROCEDURE PERFORMED: Colonoscopy with snare polypectomy and colonoscopy with biopsy. PREOPERATIVE DIAGNOSIS: Lower gastrointestinal bleed. POSTOPERATIVE DIAGNOSES: Colonic ulcers and colonic polyps and diverticulosis. INDICATION: The patient is a 66-year-old male with developmental delay, who is a permanent resident [facility] a [facility] who comes in with lower GI bleeding. CONSENT: Informed consent was obtained from the patient's health care proxy. The risks and benefits of the procedure were discussed and include but are not limited to infection, bleeding, perforation, need for surgery, cardiopulmonary complications, missed pathology and . The patient indicated his understanding of these risks and the health care proxy additionally indicated the understanding and signed the consent form. ANESTHESIA: General anesthesia was used under the care of anesthesiologist. PROCEDURE IN DETAIL: After the initiation of general anesthesia, the patient was placed in the left lateral decubitus position. Rectal exam was performed and was normal. Next, a well lubricated colonoscope was introduced into the anus and guided under direct visualization to the level of the cecum, which was confirmed by the presence of the appendiceal orifice and the IC valve, which were photographed. The scope was then slowly and systematically withdrawn making sure to examine the entire colonic mucosa carefully. Retroflexion was performed in the rectum prior to scope straightening and withdrawal from the body. There were no obvious signs of complication at the end of the procedure. FINDINGS: The [place] bowel prep score was 3 in all segments of the colon. Within the ascending colon, there were multiple areas of colonic ulceration and erythema. This had the endoscopic appearance of possibly ischemic colitis in the process of healing. This area was extensively biopsied for histology to confirm. Additionally, there were a few areas of colonic ulceration in the proximal transverse colon as well, which were biopsied. There were 2 colonic polyps observed in the transverse colon measuring 5-6 mm in size, which were removed with cold snare polypectomy. Additionally, there was a 5 mm polyp in the rectum that was removed with cold snare polypectomy and retrieved. There was diverticulosis throughout the colon, most severe in the descending and sigmoid area, this was nonbleeding at the time of endoscopy. There were moderate internal hemorrhoids on retroflexed view. IMPRESSION AND RECOMMENDATIONS: 1. Likely colonic ischemic-induced ulceration in the ascending colon and transverse colon. 2. Two transverse colon polyps and one rectum polyp, removed with cold snare polypectomy. 3. Diverticulosis throughout the colon, most severe in the descending and sigmoid colon. 4. Internal hemorrhoids. DISCUSSION: 1. The source of the patient's lower GI bleeding is likely the ischemic ulcers that were seen in the ascending colon and transverse colon. The patient does have a history of cardiovascular and stroke in the past, which puts him at risk for ischemia. As this was mostly on the right side of his colon, the patient should undergo CT angiogram of the abdomen to make sure that the superior mesenteric artery is not occluded. This can be done now as the patient does not have any evidence of acute kidney injury. 2. The patient needs repeat colonoscopy in 3 years most likely given 3 colonic polyps were removed. We will follow up the pathology results. 3. The patient should avoid all NSAIDs as this can also cause these type of ulcers seen on this endoscopic exam. Thank you for allowing me to participate in this patient's care. Please call with any further questions. [facility]# [id number]
--- NOTE | 2017-09-19 13:12 | Consultation ---
DATE OF CONSULTATION: 09/18/2017 REASON FOR CONSULTATION: GI bleed. HISTORY OF PRESENT ILLNESS: This consult was obtained through the request of Dr. Harden for this 66-year-old with history of hypertension, hyperlipidemia, morbid obesity, peptic ulcer disease, depression, and schizophrenia who also had some traumatic injury ____, requiring tracheostomy as well. The patient was admitted for lower GI bleed. Apparently, the patient is not a good historian, had several episodes of lower GI bleed, came to the hospital and was admitted for that. Denies any abdominal pain. No weight loss. No nausea, vomiting, diarrhea, or constipation. PAST MEDICAL HISTORY: Hypertension, hyperlipidemia, peptic ulcer disease, depression, and schizophrenia. PAST SURGICAL HISTORY: He had tracheostomy according to him. SOCIAL HISTORY: Smokes few cigarettes a day, nonalcoholic, and IV drug abuser. FAMILY HISTORY: Noncontributory. ALLERGIES: PENICILLIN. MEDICATIONS: The patient is on Tylenol, atorvastatin, Cogentin, BuSpar, Tegretol, Sinemet, Depakote, TriCor, Lactulose, levocarnitine, Cozaar, Zofran, Ditropan, Protonix, Paxil, and Seroquel. REVIEW OF SYSTEMS: Denies weight loss. Denies abdominal pain. No hematemesis. No melena. No nausea or vomiting. PHYSICAL EXAMINATION: GENERAL: This patient is awake, oriented to self and place, and in no acute distress. VITAL SIGNS: Blood pressure is 101/55, heart rate 51, respiratory rate 20, and temperature is 98.6. HEAD AND NECK: Pupils reactive to light. Extraocular muscles could not be tested. Oral cavity, no lesion. NECK: Supple. No jugular venous distention. No carotid bruit or lymph node. CHEST: Good respiratory movements. LUNGS: Clear to auscultation. CARDIOVASCULAR: Regular rate and rhythm. No murmur or gallop. ABDOMEN: Soft, positive bowel sound, and obese. Nontender. EXTREMITIES: Lower extremities, no edema. CENTRAL NERVOUS SYSTEM: The patient is weak on the left side. LABORATORY DATA: H and H of 13.2 and 38.9 with the platelets of 299. PT is 11.6 seconds. Liver enzymes are normal. IMPRESSION: A 66-year-old presenting with lower gastrointestinal bleed. ASSESSMENT: Gastrointestinal bleed, rule out colitis versus diverticulosis versus colon cancer versus hemorrhoids. RECOMMENDATIONS: 1. Monitor H and H. 2. Transfuse if needed. 3. Colonoscopy in the morning. 4. Further recommendations to follow. Other medical problems such as hypertension, hyperlipidemia, obesity, bipolar disorder, Parkinson disease, etc., as per Dr. Harden. Thank you, Dr. Harden for allowing me to participate in the care the patient. If you have any further questions, please let me know. JOB# [id number]
[2017-09-19] MEDS ORDERED: IOHEXOL 350mg/mL 150mL IV ONE (13:14)
--- NOTE | 2017-09-19 14:50 | Diagnostic Imaging Report ---
CT abdomen and pelvis, angiogram Indication: Right sided ischemic colitis, assess superior mesenteric artery Comparison: None, Technique: Axial images were obtained from the lung bases to the bilateral proximal femurs with IV contrast, angiogram protocol. Multiplanar reconstructions were made. Comparison: Abdominal ultrasound on 12/27/2016 Technique: Axial images were obtained from the lung bases of bowel proximal femurs with IV contrast, angiogram protocol. Multiplanar reconstructions were made. Total DLP 637 CTD I 15 Findings: Atelectatic changes of the lung bases are seen with view left basal infiltrates. The liver appears cirrhotic. No focal lesions identified. No focal splenic or pancreatic lesions. No focal adrenal lesions. No evidence of hydronephrosis. 1.2 cm left renal cyst is noted. Additional 8 mm right renal cyst is noted. The prostate gland measures 5.0 x 5 cm. Mild diverticulosis is noted without evidence of diverticulitis. No significant focal bowel wall thickening. Degenerative changes of the spine are noted. Vasculature: There is no evidence of any aortic dissection or aortic aneurysm. Mild to moderate atherosclerotic vascular disease is seen greatest along the infrarenal abdominal aorta extending distally with areas of calcified and soft plaque formation. There is mild narrowing of the origin of the celiac artery. The superior mesenteric artery is patent with no significant focal atherosclerotic disease identified. There is moderate narrowing along the origin of the inferior mesenteric artery. The origin of bilateral renal arteries are patent. Mild atherosclerosis of the renal arteries is noted. IMPRESSION: Mild to moderate atherosclerotic vascular disease as detailed above. The superior mesenteric artery is patent. No significant focal stenosis identified. Mild narrowing along the origin of the celiac artery. Moderate narrowing along the origin of the inferior mesenteric artery. Please refer to above report for details. Focal left basal airspace disease/infiltrate Cirrhotic appearing liver. Prominent prostate gland. Please correlate with clinical findings.
--- NOTE | 2017-09-20 14:21 | Pathology Report ---
[id number] Collection Date: 09/19/2017 Surgeon: Dr. Noble Olivares Specimen Description: 1. Ascending colon biopsy 2. Transverse colon biopsy 3. Transverse colon polyp 4. Rectal polyp Gross Description: Part I: Received in formalin are five crain soft tissue fragments, ranging from 0.1 to 0.2 cm in greatest dimension. Totally submitted in one cassette labeled A. Gross Description: Part II: Received in formalin is a single crain soft tissue fragment, measuring 0.1 cm in greatest dimension. Totally submitted in one cassette labeled B. Gross Description: Part III: Received in formalin is a 0.3 cm crain soft tissue fragment. Totally submitted in one cassette labeled C. Gross Description: Part IV: Received in formalin is a 0.4 cm polypoid portion of crain soft tissue. Totally submitted in one cassette labeled D. Microscopic Description: Part I: The histologic sections show colon mucosa with a focal area of superficial mucosal ulceration. There is hemorrhage and inflammation at this area of ulceration, consisting of increased numbers of lymphocytes and plasma cells admixed with neutrophils. Diagnosis: Part I: Superficial mucosal ulceration and hemorrhage with associated acute and chronic inflammation (ascending colon biopsy). Microscopic Description: Part II: The histologic sections show colon mucosa with focal superficial mucosal ulceration with associated chronic inflammation, consisting of increased numbers of lymphocytes and plasma cells. There is also superficial hemorrhage associated with this ulcer. There is no evidence for atypia. Diagnosis: Part II: Superficial mucosal ulceration with associated chronic inflammation and hemorrhage (transverse colon biopsy). Microscopic Description: Part III: The histologic sections show a polypoid portion of colon mucosa with adenomatous glanular changes present consisting of mostly tubules, consistent with benign tubular adenoma. Diagnosis: Part III: Benign adenomatous polyp consistent with tubular adenoma (transverse colon polyp). Microscopic Description: Part IV: The histologic sections show a polypoid portion of colorectal mucosa with hyperplastic glandular changes present, consistent with benign hyperplastic polyp. Diagnosis: Part IV: Benign hyperplastic polyp, rectal biopsy. Comment: the ulceration and hemorrhagic changes seen in the ascending and transverse colon are suggestive of ischemic colitis. Clinical followup is recommended to determine if further studies are warranted. [facility]# [id number] [facility]
== END 2017-09-19 18:20 | disposition home or self-care (01) | DRG 393 ==
LOC: ER 16:57 → MSI 18:53
PROVIDERS: ADMIT Internal Medicine; ATTEND Internal Medicine
PROC: 0DBK8ZX Excision of Ascending Colon, Via Natural or Artificial Opening Endoscopic, Diagnostic (ICD-10-PCS; principal; 2017-09-19)
PROC: 0DBL8ZX Excision of Transverse Colon, Via Natural or Artificial Opening Endoscopic, Diagnostic (ICD-10-PCS; 2017-09-19)
PROC: 0DBP8ZZ Excision of Rectum, Via Natural or Artificial Opening Endoscopic (ICD-10-PCS; 2017-09-19)
PROC: 0DBL8ZZ Excision of Transverse Colon, Via Natural or Artificial Opening Endoscopic (ICD-10-PCS; 2017-09-19)
DX: K55.059 Acute (reversible) ischemia of intestine, part and extent unspecified (principal); K57.31 Diverticulosis of large intestine without perforation or abscess with bleeding; K63.3 Ulcer of intestine; G20 Parkinson's disease; E87.1 Hypo-osmolality and hyponatremia; E44.1 Mild protein-calorie malnutrition; M19.90 Unspecified osteoarthritis, unspecified site; F25.9 Schizoaffective disorder, unspecified; I10 Essential (primary) hypertension; K21.9 Gastro-esophageal reflux disease without esophagitis; D64.9 Anemia, unspecified; E78.00 Pure hypercholesterolemia, unspecified; E66.01 Morbid (severe) obesity due to excess calories; F17.210 Nicotine dependence, cigarettes, uncomplicated; K63.5 Polyp of colon; K62.1 Rectal polyp; K64.8 Other hemorrhoids; Z68.30 Body mass index [BMI] 30.0-30.9, adult; Z83.3 Family history of diabetes mellitus; Z82.49 Family history of ischemic heart disease and other diseases of the circulatory system; Z86.73 Personal history of transient ischemic attack (TIA), and cerebral infarction without residual deficits; Z88.0 Allergy status to penicillin
CPT/HCPCS: 36415-UA; 71010-TC; 80048-TC; 80053-TC; 80061-TC; 82150-TC; 82550-TC; 82948-90; 83690-TC; 83880-TC; 84484-TC; 85025-TC; 85610-TC; 85730-TC; 93005; 94760; C9113; J0696; J2704; J7030; J7042; Z7506; Z7610

== ENCOUNTER 2018-01-28 11:58 | Inpatient (IN) | payer MEDICARE, MEDICAID ==
[2018-01-28] MEDS ORDERED: Sodium Chloride 0.9% 1,000 ML IV ONE (12:25)
--- NOTE | 2018-01-28 12:32 | ED Physician Chart ---
ED Chief Complaint/HPI - Patient Information Date Seen:: 01/28/18 Time Seen:: 12:10 Chief Complaint:: Abdominal Pain History of Present Illness:: onset x 2 days of intermittent, diffuse, crampy abdominal pain, N/V; no report of trauma, H/As, S/T, neck pain, C/P, SOB, A/D/C, fever, chills, or urinary s/s Allergies:: Allergies Allergy/AdvReac Type Severity Reaction Status Date / Time Penicillins Allergy Verified 07/19/17 16:51 Vitals:: Vital Signs - 8 hr 01/28/18 12:12 Temp 97.6 F HR 63 RR 16 BP 124/67 O2 Sat % 94 Historian:: Patient Review:: Nurse's Note Reviewed, Old Chart Reviewed, EMS run form Reviewed ED Past Medical History - Past Medical History Obtainable: Yes Past Medical History: HTN, Asthma/COPD, CVA/TIA, Dyslipidemia, Seizures, Arthritis, Dementia, Other (Parkinson's Disease) Family History: Diabetes Melitus, HTN Social History: Non Smoker, No Alcohol, No Drug Use, Single, Care Facility Surgical History: None Psychiatricy History: Dementia Medication: Reviewed Family Medical History - Family Member Mother History Unknown: Yes ED Physical Exam - Physical Examination General/Constitutional: Awake, Well-developed, well-nourished, Alert, No distress, GCS 15, Non-toxic appearing, Ambulatory Head: Atraumatic Eyes: Lids, conjuctiva normal, PERRL, EOMI Skin: Nl inspection, No rash, No skin lesions, No ecchymosis, Well hydrated, No lymphadenopathy ENMT: External ears, nose nl, TM canals nl, Nasal exam nl, Lips, teeth, gums nl , Oropharynx nl, Tonsils nl Neck: Nontender, Full ROM w/o pain, No JVD, No nuchal rigidity, No bruit, No mass, No stridor Respiratory: Nl effort/Exclusion, Clear to Auscultation, No Wheeze/Rhonchi/Rales Cardio Vascular: RRR, No murmur, gallop, rubs, NL S1 S2, Carotid/Femoral/Distal pulses equal bilaterally GI: No tenderness/rebounding/guarding, No organomegaly, No hernia, Normal BS's, Nondistended, No mass/bruits, No McBurney tenderness : No CVA tenderness Extremities: No tenderness or effusion, Full ROM, normal strength in all extremities, No edema, Normal digits & nails Neuro/Psych: DTR's symmetric, Mood normal Other Neuro/Psych comments:: Disoriented and confused; + Decreased motor/sensory functions of left facial; RUE and RLE cw old CVA; nonverbal Misc: Normal back, No paraspinal tenderness ED Labs/Radiology/EKG Results - Lab Results Comments:: Na+: 124 - Radiology Results Comments:: NAD - EKG Interpretations EKG Time:: 12:30 Rate & Rhythm: 63; NSR Comments:: non-specific st-t changes ED Septic Shock - . Is Septic Shock (SBP<90, OR Lactate>4 mmol\L) present?: No - <6hrs of presentation: Vital Signs: Vital Signs - 8 hr 01/28/18 12:12 Temp 97.6 F HR 63 RR 16 BP 124/67 O2 Sat % 94 ED Reassessment (Disposition) - Reassessment Reassessment Condition:: Improved - Diagnosis Diagnosis:: Dx: Abdominal Pain; Hyponatremia; N/V; AGE; Dehydration; Gastroenteritis - Aftercare/Follow up Instructions Aftercare/Follow-Up Instructions:: Counseled pt regarding lab results/diagnosis & need follow up, Counseled pt & family regarding lab results/diagnosis & need follow up - Patient Disposition Discharge/Transfer:: Acute Care w/in this hosp Accepting Physician:: Dr. Harden Time Called:: 1400 Time Responded:: 14:00 Admitted to:: Med/Surg Spoke to:: Dr. Harden Admitting Medical Physician:: Dr. Harden Condition at Disposition:: Stable, Improved
[2018-01-28 12:44] LABS: % BASOPHILS 0.5 % (0.0-2.0); % EOSINOPHILS 2.2 % (0.0-5.0); % LYMPHOCYTES 21.2 % (20.0-50.0); % MONOCYTES 7.8 % (2.0-10.0); % NEUTROPHILS 68.3 % (40.0-80.0); EOSINOPHILE ABSOLUTE 0.2 Th/cmm (0.1-0.4); HEMATOCRIT 37.2 % (41.0-60); LYMPHOCYTE ABSOLUTE 1.6 Th/cmm (1.5-3.0); MEAN CELL VOLUME 88.9 fl (80-99); MEAN CORPUSCULAR HEMOGLOBIN 31.1 pg (27.0-31.0); MEAN PLATELET VOLUME 7.5 fl; MONOCYTE ABSOLUTE 0.6 Th/cmm (0.3-1.0); NEUTROPHILE ABSOLUTE 5.3 Th/cmm (1.8-8.0); PLATELET COUNT 223 Th/cmm (150-400); RED BLOOD COUNT 4.18 Mil/cmm (3.80-5.80); RED CELL DISTRIBUTION WIDTH 15.7 % (11.5-20.0); WHITE BLOOD COUNT 7.7 Th/cmm (4.8-10.8)
[2018-01-28 12:55] LABS: INR 1.12 (0.5-1.4); PROTHROMBIN TIME (TEST) 11.7 SECONDS (9.5-11.5)
[2018-01-28 13:00] LABS: ALB/GLOB RATIO 1.1 (1.0-1.8); ALBUMIN 3.7 gm/dL (4.2-5.5); ALKALINE PHOSPHATASE 65 U/L (34-104); AMYLASE SERUM 35 U/L (29-103); ANION GAP 8.9 (7.0-16.0); BILIRUBIN,TOTAL 0.3 mg/dL (0.3-1.0); BUN - UREA NITROGEN 8 mg/dL (7-25); CALCIUM SERUM 9.2 mg/dL (8.6-10.3); CARBON DIOXIDE 25.1 mEq/L (21.0-31.0); CHLORIDE 94 mEq/L (98-107); CHOLESTEROL 125 mg/dL (<200); CREATININE - SERUM 0.6 mg/dL (0.7-1.3); CREATININE KINASE 97 U/L (30-223); GFR AFRICAN-AMERICAN > 60.0 ml/min (>90); GFR NON AFRICAN-AMERICAN > 60.0 ml/min; GLUCOSE 110 mg/dL (70-105); HDL -HIGH DENSITY LIPOPROTEIN 46 mg/dL (23-92); LIPASE 11 U/L (11-82); SGOT 10 U/L (13-39); SGPT/ALT 3 U/L (7-52); SODIUM SERUM 124 mEq/L (136-145); TOTAL PROTEIN,SERUM 7.1 gm/dL (6.0-8.3); TRIGLYCERIDES 131 mg/dL (<150)
--- NOTE | 2018-01-28 13:57 | Diagnostic Imaging Report ---
CHEST X-RAY: AP view INDICATION: pain COMPARISON: 09/17/2017 FINDINGS: Congestive changes are seen with low lung volumes and small left effusion. Cardiomegaly is noted. Degenerative changes of the spine are noted. IMPRESSION: Congestive changes with low lung volumes and small left effusion. Pneumonia of the left lower lung zone cannot be excluded. Cardiomegaly.
[2018-01-28] MEDS ORDERED: Albuterol Nebulizer 2.5mg/3mL IH PRN (15:21)
[2018-01-28] MEDS ORDERED: guaiFENesin 200 MG/10 ML UDC PO PRN (15:21)
[2018-01-28] MEDS ORDERED: Ipratropium Neb 0.5 mg/2.5 mL UD IH PRN (15:21)
[2018-01-28] MEDS ORDERED: Maalox 30 mL Cup PO PRN (15:21)
[2018-01-28 15:27] LABS: URINE MICROSCOPIC INDICATED? YES; URINE SOURCE CLEAN C
[2018-01-28 15:29] LABS: URINE BILIRUBIN NEGATIVE (NEGATIVE); URINE BLOOD NEGATIVE (NEGATIVE); URINE GLUCOSE (UA) NEGATIVE (NEGATIVE); URINE KETONE NEGATIVE (NEGATIVE); URINE LEUKOCYTE ESTERASE NEGATIVE (NEGATIVE); URINE NITRATE NEGATIVE (NEGATIVE); URINE PROTEIN NEGATIVE (NEGATIVE)
[2018-01-28] MEDS: D5-0.45NS 1,000 ML IV SCH (15:51)
[2018-01-28 15:53] LABS: URINE CLARITY CLEAR (CLEAR); URINE COLOR YELLOW
[2018-01-28 15:54] LABS: URINE BACTERIA NONE SEEN /hpf (NONE SEEN); URINE EPITHELIAL CELLS NONE SEEN /lpf (FEW); URINE RBC NONE SEEN /hpf (0-5); URINE WBC NONE SEEN /hpf (0-5)
--- NOTE | 2018-01-28 16:33 | History & Physical ---
ADMIT DATE: 01/28/2018 CHIEF COMPLAINT: Vomiting and abdominal pain. HISTORY OF PRESENT ILLNESS: This is a 67-year-old male who is well known to me from [facility]. I was called regarding this patient earlier this morning. The patient has been having 3 times episode of vomiting since last night and the patient has been complaining of nausea and the patient was noted to have increasing in confusion. The patient also complains of abdominal pain. For further management, the patient will be admitted. PAST MEDICAL HISTORY: CVA, DJD, hypercholesterolemia, schizoaffective disorder, Parkinson's, high ammonia level. PAST SURGICAL HISTORY: [employer] shunt, craniotomy. ALLERGIES: PENICILLIN. MEDICATIONS: Tylenol, aspirin, Lipitor, Cogentin, Sinemet, Depakote, lactulose, magnesium, multivitamin, Ditropan, BuSpar. FAMILY HISTORY: Noncontributory. SOCIAL HISTORY: The patient is a [facility] resident, requiring 24 hour nursing care. REVIEW OF SYSTEMS: GENERAL: Denies any fevers and chills. CARDIOVASCULAR: Denies chest pain. RESPIRATORY: Denies shortness of breath. GASTROINTESTINAL: Complains of nausea and complains of abdominal pain. GENITOURINARY: Denies increased frequency or dysuria. NEUROLOGIC: No headaches, seizures or syncope. All other systems are reviewed and are negative. PHYSICAL EXAMINATION: GENERAL: The patient is well developed, well nourished, no apparent distress. VITAL SIGNS: Temperature 97.6, heart rate 63, blood pressure 124/67, respirations 16, O2 94%. HEENT: Head; normocephalic, atraumatic. NECK: Supple. No mass. LUNGS: Clear bilaterally. HEART: Regular rate and rhythm. ABDOMEN: Mildly distended. LABORATORY DATA: WBC 7.7, H and H 13.0 and 37.2, platelet of 223. Sodium 124, potassium 4.0, chloride 94, BUN 8, creatinine 0.6. ASSESSMENT: 1. Intractable nausea and vomiting. 2. Abdominal pain. 3. Hyponatremia. 4. Mild protein calorie malnutrition, generalized weakness, DJD, hypercholesterolemia, schizoaffective disorder, Parkinson's. PLAN: We will get a KUB done. Keep patient on IV fluids for hydration. We will keep the patient n.p.o. for now. We will get GI to see the patient, will get follow up labs. We will continue to monitor this patient. JOB# [id number]
[2018-01-28] MEDS: Benztropine 1 MG TAB PO SCH (17:22)
[2018-01-28] MEDS: Lactulose 10 Gm/15 mL 30mL UDC PO SCH ×2 (17:22→20:33)
[2018-01-28] MEDS: Atorvastatin Calcium 10 MG TAB PO SCH (20:34)
[2018-01-29] MEDS: D5-0.45NS 1,000 ML IV SCH ×2 (05:11→18:14)
[2018-01-29 05:59] LABS: % BASOPHILS 0.3 % (0.0-2.0); % EOSINOPHILS 3.4 % (0.0-5.0); % LYMPHOCYTES 29.1 % (20.0-50.0); % MONOCYTES 9.9 % (2.0-10.0); % NEUTROPHILS 57.3 % (40.0-80.0); EOSINOPHILE ABSOLUTE 0.2 Th/cmm (0.1-0.4); HEMATOCRIT 37.9 % (41.0-60); HEMOGLOBIN 12.5 gm/dL (12-16); LYMPHOCYTE ABSOLUTE 1.4 Th/cmm (1.5-3.0); MEAN CELL VOLUME 90.4 fl (80-99); MEAN CORPUSCULAR HEMOGLOBIN 29.7 pg (27.0-31.0); MEAN CORPUSCULAR HGB CONC 32.9 pg (28.0-36.0); MEAN PLATELET VOLUME 7.8 fl; MONOCYTE ABSOLUTE 0.5 Th/cmm (0.3-1.0); NEUTROPHILE ABSOLUTE 2.7 Th/cmm (1.8-8.0); PLATELET COUNT 234 Th/cmm (150-400); RED BLOOD COUNT 4.19 Mil/cmm (3.80-5.80); RED CELL DISTRIBUTION WIDTH 15.9 % (11.5-20.0); WHITE BLOOD COUNT 4.8 Th/cmm (4.8-10.8)
[2018-01-29 06:08] LABS: ANION GAP 8.6 (7.0-16.0); BUN - UREA NITROGEN 6 mg/dL (7-25); CALCIUM SERUM 8.9 mg/dL (8.6-10.3); CHLORIDE 96 mEq/L (98-107); CREATININE - SERUM 0.6 mg/dL (0.7-1.3); GFR AFRICAN-AMERICAN > 60.0 ml/min (>90); GFR NON AFRICAN-AMERICAN > 60.0 ml/min; GLUCOSE 119 mg/dL (70-105); POTASSIUM SERUM 3.6 mEq/L (3.5-5.1); SODIUM SERUM 126 mEq/L (136-145)
[2018-01-29 07:46] VITALS: BP 134/77
--- NOTE | 2018-01-29 07:58 | Diagnostic Imaging Report ---
CT scan abdomen and pelvis without intravenous contrast HISTORY: Pain Total DLP equals 956 CTDI equals 15.8 Axial sections were obtained from the xiphoid process down to the pubic symphysis. The liver exhibits a bulbous contour of the left lobe. No focal lesions. The spleen appears normal. No focal abnormality seen within the pancreas. No focal renal lesions. No hydronephrosis. The adrenal glands appear normal bilaterally. No abnormality seen in the region of the appendix. The exam of the pelvis demonstrates [id number] enlargement of the prostate gland. No abnormal soft tissue masses or abnormal fluid collections. Colonic diverticula are seen. No bowel dilatation. IMPRESSION: 1. No acute intra-abdominal abnormalities 2. Mild to moderate enlargement of the prostate gland 3. Diverticulosis 4. Generalized accentuation of the lower interstitial lung markings.
[2018-01-29] MEDS: Aspirin 81mg Chewable Tab PO SCH (08:17)
[2018-01-29] MEDS: Benztropine 1 MG TAB PO SCH ×2 (08:18→16:47)
[2018-01-29] MEDS: Fenofibrate, Micronized 134 mg Cap PO SCH (08:18)
[2018-01-29] MEDS: Lactulose 10 Gm/15 mL 30mL UDC PO SCH ×4 (09:47→21:49)
--- NOTE | 2018-01-29 10:45 | Consultation ---
DATE OF CONSULTATION: 01/29/2018 INPATIENT GASTROINTESTINAL CONSULTATION CONSULTING PHYSICIAN: Dr. Harden. REASON FOR CONSULTATION: Abdominal pain, vomiting, elevated ammonia level. HISTORY OF PRESENT ILLNESS: The patient is a 67-year-old male with past medical history significant for previous stroke, hypercholesterolemia, schizoaffective disorder, Parkinson's disease, possible cirrhosis who was admitted to the hospital from his nursing facility with abdominal pain and vomiting. The patient apparently had 3 episodes of vomiting at his nursing facility and was increasingly confused there more than his baseline. He also complained of abdominal pain. For these reasons, he was transferred to the hospital for further evaluation. At the current time, the patient reports he does not have any abdominal pain. He is eating his meal without issue. He has also had a bowel movement that was noted to be normal brown stool. Of note, the patient was here in September and had a colonoscopy done for signs and symptoms of colitis and findings showed ischemic colitis on the right side as well as several polyps. He had a CT angiogram performed at that time which noted mild to moderate atherosclerosis and moderate narrowing of the inferior mesenteric artery and possible liver cirrhosis, but no occlusions. He was treated conservatively at that time and ultimately discharged. He also had a CT scan last night that showed diverticulosis, but no other findings. PAST MEDICAL HISTORY: History of stroke, Parkinson's disease, schizoaffective disorder, hyperlipidemia. PAST SURGICAL HISTORY: [employer] shunt, craniotomy in the past. FAMILY HISTORY: Noncontributory. SOCIAL HISTORY: The patient is a permanent resident of a nursing facility, requiring 24-hour care. ALLERGIES: REPORTED TO [facility]. CURRENT MEDICATIONS: Tylenol, Maalox, albuterol, aspirin, Lipitor, Cogentin, BuSpar, Tegretol, carbidopa-levodopa, Depakote, Colace, fenofibrate, Robitussin, Atrovent, lactulose, Carnitor, losartan, Zofran, oxybutynin, Protonix b.i.d. dosing, Seroquel and Paxil. PHYSICAL EXAMINATION: VITAL SIGNS: Blood pressure is 116/68, pulse 8 beats per minute, temperature 96.7, respiratory rate is 18, oxygen 96%. GENERAL: The patient is in bed. He is alert and oriented x 1. No apparent distress. HEAD, EYES, EARS, NOSE AND THROAT: Normocephalic, atraumatic appearing head. Pupils are equal and reactive to light. Extraocular muscles are intact. There is no scleral icterus. Moist mucous membranes. NECK: Supple. No JVD or thyromegaly or lymphadenopathy. CHEST: Crackles at the bases. CARDIOVASCULAR: S1, S2 present. Regular rate and rhythm. ABDOMEN: Obese, soft, nontender to palpation, no guarding, no rebound, no distention. EXTREMITIES: 1+ pitting edema bilaterally. Pulses are not present. SKIN: There are no obvious jaundice or cyanosis. LABORATORY DATA: White blood cell count 4.8, hemoglobin is 12.5, platelet count is 234. INR is 1.1. Sodium 126, BUN is 6, creatinine 0.6, total bilirubin is 0.3, AST 10, ALT 3. Ammonia level was 234. Lipase is 11. Imaging studies of the abdomen and pelvis CT without contrast was performed and shows diverticulosis, no other acute findings. IMPRESSION: This is a 67-year-old male with previous stroke, Parkinson's disease, schizoaffective disorder, who was admitted to the hospital with nausea and vomiting, abdominal pain in his nursing facility. 1. Nausea, vomiting. 2. Abdominal pain. 3. History of stroke. 4. Schizoaffective disorder. 5. Parkinson's disease. 6. History of ischemic colitis in 09/2017. DISCUSSION: At the current time, the patient seems to be doing well and he no longer has symptoms of nausea and vomiting and pain, unclear what the etiology of these symptoms were, given within normal. CT scan shows no acute findings at this time, it is possible that the patient became altered because of elevated ammonia level and portal hypertension, which caused nausea and vomiting. It is also possible that he had a gastroparesis, which has since resolved or constipation, which has since resolved with the lactulose. Regardless, he has had a colonoscopy recently and we do need to do another one now with GI bleeding. RECOMMENDATIONS: 1. We will adjust the lactulose to t.i.d. dosing to help with elevated ammonia level. The patient's previous CT angiogram did show evidence of cirrhosis status. He likely will need ultrasound every 6 months to look for HCC as well as an upper endoscopy every 1-2 years for variceal screening. 2. If the patient's symptoms return or get worse, we can consider doing EGD here in the hospital. 3. We will adjust the Protonix to daily dosing. 4. Continue to advance a diet as tolerated. The patient is currently doing well with his full liquid diet. I will continue to follow the patient. Thank you for allowing me to participate in his care. Please call if any further questions. JOB# [id number]
--- NOTE | 2018-01-29 13:04 | Internal Medicine Prog Note ---
Internal Medicine Subjective - Subjective Service Date: 01/29/18 Patient seen and examined:: with staff Patient is:: awake, verbal Per staff patient has:: no adverse event, tolerating meds Internal Medicine Objective - Results Result Diagrams: 01/29/18 05:35 01/29/18 05:35 Recent Labs: Laboratory Last Values WBC 4.8 Th/cmm (4.8-10.8) 01/29/18 05:35 RBC 4.19 Mil/cmm (3.80-5.80) 01/29/18 05:35 Hgb 12.5 gm/dL (12-16) 01/29/18 05:35 Hct 37.9 % (41.0-60) L 01/29/18 05:35 MCV 90.4 fl (80-99) 01/29/18 05:35 MCH 29.7 pg (27.0-31.0) 01/29/18 05:35 MCHC Differential 32.9 pg (28.0-36.0) 01/29/18 05:35 RDW 15.9 % (11.5-20.0) 01/29/18 05:35 Plt Count 234 Th/cmm (150-400) 01/29/18 05:35 MPV 7.8 fl 01/29/18 05:35 Neutrophils % 57.3 % (40.0-80.0) 01/29/18 05:35 Lymphocytes % 29.1 % (20.0-50.0) 01/29/18 05:35 Monocytes % 9.9 % (2.0-10.0) 01/29/18 05:35 Eosinophils % 3.4 % (0.0-5.0) 01/29/18 05:35 Basophils % 0.3 % (0.0-2.0) 01/29/18 05:35 PT 11.7 SECONDS (9.5-11.5) H 01/28/18 12:30 INR 1.12 (0.5-1.4) 01/28/18 12:30 Sodium 126 mEq/L (136-145) L 01/29/18 05:35 Potassium 3.6 mEq/L (3.5-5.1) 01/29/18 05:35 Chloride 96 mEq/L (98-107) L 01/29/18 05:35 Carbon Dioxide 25.0 mEq/L (21.0-31.0) 01/29/18 05:35 Anion Gap 8.6 (7.0-16.0) 01/29/18 05:35 BUN 6 mg/dL (7-25) L 01/29/18 05:35 Creatinine 0.6 mg/dL (0.7-1.3) L 01/29/18 05:35 Est GFR ( Amer) > 60.0 ml/min (>90) 01/29/18 05:35 Est GFR (Non-Af Amer) > 60.0 ml/min 01/29/18 05:35 BUN/Creatinine Ratio 10.0 01/29/18 05:35 Glucose 119 mg/dL (70-105) H 01/29/18 05:35 Calcium 8.9 mg/dL (8.6-10.3) 01/29/18 05:35 Total Bilirubin 0.3 mg/dL (0.3-1.0) 01/28/18 12:30 AST 10 U/L (13-39) L 01/28/18 12:30 ALT 3 U/L (7-52) L 01/28/18 12:30 Alkaline Phosphatase 65 U/L (34-104) 01/28/18 12:30 Ammonia 234 umol/L (16-53) H 01/29/18 05:35 Creatine Kinase 97 U/L (30-223) 01/28/18 12:30 Troponin I < 0.01 ng/mL (0.01-0.05) L 01/28/18 12:30 B-Natriuretic Peptide 28.8 pg/mL (5.0-100.0) 01/28/18 12:30 Total Protein 7.1 gm/dL (6.0-8.3) 01/28/18 12:30 Albumin 3.7 gm/dL (4.2-5.5) L 01/28/18 12:30 Globulin 3.4 gm/dL 01/28/18 12:30 Albumin/Globulin Ratio 1.1 (1.0-1.8) 01/28/18 12:30 Triglycerides 131 mg/dL (<150) 01/28/18 12:30 Cholesterol 125 mg/dL (<200) 01/28/18 12:30 LDL Cholesterol Direct 66 mg/dL (75-193) L 01/28/18 12:30 HDL Cholesterol 46 mg/dL (23-92) 01/28/18 12:30 Amylase 35 U/L (29-103) 01/28/18 12:30 Lipase 11 U/L (11-82) 01/28/18 12:30 Urine Source CLEAN C 01/28/18 15:22 Urine Color YELLOW 01/28/18 15:22 Urine Clarity CLEAR (CLEAR) 01/28/18 15:22 Urine pH 7.0 (4.6 - 8.0) 01/28/18 15:22 Ur Specific [place] 1.010 (1.005-1.030) 01/28/18 15:22 Urine Protein NEGATIVE mg/dL (NEGATIVE) 01/28/18 15:22 Urine Glucose (UA) NEGATIVE mg/dL (NEGATIVE) 01/28/18 15:22 Urine Ketones NEGATIVE mg/dL (NEGATIVE) 01/28/18 15:22 Urine Blood NEGATIVE (NEGATIVE) 01/28/18 15:22 Urine Nitrate NEGATIVE (NEGATIVE) 01/28/18 15:22 Urine Bilirubin NEGATIVE (NEGATIVE) 01/28/18 15:22 Urine Urobilinogen 1.0 E.U./dL (0.2 - 1.0) 01/28/18 15:22 Ur Leukocyte Esterase NEGATIVE (NEGATIVE) 01/28/18 15:22 Urine RBC NONE SEEN /hpf (0-5) 01/28/18 15:22 Urine WBC NONE SEEN /hpf (0-5) 01/28/18 15:22 Ur Epithelial Cells NONE SEEN /lpf (FEW) 01/28/18 15:22 Urine Bacteria NONE SEEN /hpf (NONE SEEN) 01/28/18 15:22 - Physical Exam Vitals and I&O: Vital Signs Temp 97.6 F 01/29/18 12:00 Pulse 57 01/29/18 12:00 Resp 18 01/29/18 12:00 BP 154/83 01/29/18 12:00 Pulse Ox 94 01/29/18 12:00 Intake & Output 01/28/18 01/29/18 01/29/18 18:59 06:59 18:59 Intake Total 90.667 1259.333 Output Total 200 Balance 90.667 1059.333 Weight (lbs) 225 lb 127 lb Intake: Intake, IV Amount 90.667 909.333 D5-0.45NS 1,000 ml @ 80 90.667 909.333 mls/hr IV .[id number] [facility] Rx #:[id number] Oral 350 Output: Urine 200 Other: # Voids 1 # Bowel Movements 0 Stool Characteristics Soft Weight Source Bedscale Active Medications: Current Medications Acetaminophen (Tylenol) 650 mg PO Q4HR PRN PRN Reason: Pain Or Fever above 101 Stop: 03/29/18 15:20 Al Hydrox/Mg Hydrox/Simethicone (Maalox) 30 ml PO Q6HR PRN PRN Reason: Dyspepsia Stop: 03/29/18 15:20 Albuterol Sulfate (Albuterol 2.5mg/3ml Neb Ud) 2.5 mg IH Q2HR PRN PRN Reason: Shortness of Breath or Wheeze Stop: 03/29/18 15:20 Aspirin (Aspirin Chewable) 81 mg PO DAILY [facility] Stop: 03/30/18 08:59 Last Admin: 01/29/18 08:17 Dose: 81 mg Atorvastatin Calcium (Lipitor) 20 mg PO HS [facility] PRN Reason: Protocol Stop: 03/29/18 20:59 Last Admin: 01/28/18 20:34 Dose: 20 mg Benztropine Mesylate (Cogentin) 1 mg PO BID [facility] Stop: 03/29/18 16:59 Last Admin: 01/29/18 08:18 Dose: 1 mg Buspirone HCl (Buspar) 10 mg PO BID [facility] PRN Reason: Protocol Stop: 03/29/18 16:59 Last Admin: 01/29/18 08:18 Dose: 10 mg Carbamazepine (Tegretol) 600 mg PO Q12HR [facility] PRN Reason: Protocol Stop: 03/29/18 20:59 Last Admin: 01/29/18 08:12 Dose: 600 mg Carbidopa/Levodopa (Sinemet 25mg-100 Mg) 1 tab PO TID [facility] Stop: 03/29/18 15:20 Last Admin: 01/29/18 08:12 Dose: 1 tab Divalproex Sodium (Depakote Dr) 1,000 mg PO BID [facility] PRN Reason: Protocol Stop: 03/29/18 16:59 Last Admin: 01/29/18 08:17 Dose: 1,000 mg Divalproex Sodium (Depakote Dr) 500 mg PO HS [facility] PRN Reason: Protocol Stop: 03/29/18 20:59 Last Admin: 01/28/18 20:34 Dose: 500 mg Docusate Sodium (Colace) 100 mg PO DAILY [facility] Stop: 03/30/18 08:59 Last Admin: 01/29/18 08:18 Dose: 100 mg Fenofibrate (Tricor) 134 mg PO DAILY [facility] Stop: 03/30/18 08:59 Last Admin: 01/29/18 08:18 Dose: 134 mg Guaifenesin (Robitussin) 100 mg PO Q4H PRN PRN Reason: Cough or Congestion Stop: 03/29/18 15:20 Last Admin: 01/29/18 08:11 Dose: 100 mg Dextrose/Sodium Chloride (D5-0.45ns) 1,000 mls @ 80 mls/hr IV .[id number] [facility] Stop: 03/29/18 15:20 Last Admin: 01/29/18 05:11 Dose: 80 mls/hr Ipratropium [place] (Atrovent Neb 0.5mg/2.5ml) 0.5 mg IH Q2HR PRN PRN Reason: Shortness of Breath or Wheeze Stop: 03/29/18 15:20 Lactulose (Cephulac) 30 gm PO TID [facility] Stop: 03/30/18 13:59 Levocarnitine (Carnitor) 990 mg PO BID [facility] Stop: 03/30/18 08:59 Last Admin: 01/29/18 08:21 Dose: 990 mg Losartan Potassium (Cozaar) 100 mg PO DAILY [facility] Stop: 03/30/18 08:59 Last Admin: 01/29/18 11:33 Dose: 100 mg Ondansetron HCl (Zofran) 4 mg IV Q8H PRN PRN Reason: Nausea / Vomiting Stop: 03/29/18 15:20 Oxybutynin Chloride (Ditropan) 5 mg PO HS [facility] Stop: 03/29/18 20:59 Last Admin: 01/28/18 20:34 Dose: 5 mg Pantoprazole Sodium (Protonix) 40 mg IVP DAILY [facility] Stop: 03/31/18 08:59 Paroxetine HCl (Paxil) 10 mg PO DAILY [facility] PRN Reason: Protocol Stop: 03/30/18 08:59 Last Admin: 01/29/18 08:18 Dose: 10 mg Quetiapine Fumarate (Seroquel) 50 mg PO BID [facility] PRN Reason: Protocol Stop: 03/29/18 16:59 Last Admin: 01/29/18 08:17 Dose: 50 mg General: weak, alert HEENT: NC/AT, PERRLA Neck: Supple Lungs: CTAB Cardiovascular: RRR, Normal S1, Normal S2, without murmur Abdomen: non-tender, positive bowel sound Extremities: excoriation Neurological: alert - Procedures Procedures: Procedures Procedure Code Date COLONOSCOPY W/LESION REMOVAL 66167 09/17/17 EXCISION OF ASCENDING COLON, ENDO, DIAGN [id number] 09/17/17 EXCISION OF RECTUM, ENDO [id number] 09/17/17 EXCISION OF TRANSVERSE COLON, ENDO [id number] 09/17/17 EXCISION OF TRANSVERSE COLON, ENDO, DIAGN [id number] 09/17/17 GROUP PSYCHOTHERAPY 43470 12/06/15 GROUP PSYCHOTHERAPY [id number] 12/06/15 OTHER GROUP THERAPY 94.44 06/02/14 RECREATIONAL THERAPY 93.81 07/28/11 Internal Medicine Assmt/Plan - Assessment Assessment: Intractable nausea/vomiting abdominal pain hyponatremia mild protein calorie malnutrition generalized weakness DJD hypercholesteremia schizoaffective disorder parkinson's - Plan Plan: continue ivf for hydration gi follow up follow up labs in am monitor ammonia level continue current plan of care
--- NOTE | 2018-01-29 16:14 | Consultation ---
DATE OF CONSULTATION: 01/29/2018 PSYCHIATRIC CONSULTATION CHIEF COMPLAINT: Psychotic illness. HISTORY OF PRESENT ILLNESS: The patient is a 67-year-old male with a history of schizoaffective disorder and dementia, currently admitted to medical floor, has been restless at times, easily agitated, trying to grab female staff, making some sexual inappropriate remarks. The patient, however, is passively accepting treatment and has not been striking out. The patient is a poor historian. PAST PSYCHIATRIC HISTORY: Multiple psychiatric hospitalizations, chronic schizoaffective disorder. PAST MEDICAL HISTORY: Refer to [facility] PSYCHOSOCIAL HISTORY: The patient resides at [facility], requires complete care. MENTAL STATUS EXAMINATION: The patient has made fair eye contact. Speech, slightly dysarthric, short sentences. Affect irritable. The patient is oriented to person who is in the hospital and did not know his age. Thought process disorganized. The patient has some paranoia. ASSESSMENT: Schizoaffective disorder and dementia, not otherwise specified. PLAN: At this time, would recommend continuation of medical supportive measures, continue Seroquel 50 mg p.o. b.i.d. and he is also on Paxil 10 mg daily, use Ativan 0.5 mg p.o. q. 4 hours p.r.n. anxiety. We will follow closely while on the medical floor. Thank you for the consultation. Consider psychiatric hospitalization if sexual inappropriate behavior consists. JOB# [id number]
[2018-01-29] MEDS: Atorvastatin Calcium 10 MG TAB PO SCH (21:48)
[2018-01-30] MEDS: D5-0.45NS 1,000 ML IV SCH (06:15)
[2018-01-30 06:50] LABS: % BASOPHILS 0.2 % (0.0-2.0); % MONOCYTES 8.9 % (2.0-10.0); % NEUTROPHILS 70.9 % (40.0-80.0); EOSINOPHILE ABSOLUTE 0.1 Th/cmm (0.1-0.4); HEMOGLOBIN 13.3 gm/dL (12-16); LYMPHOCYTE ABSOLUTE 1.2 Th/cmm (1.5-3.0); MEAN CELL VOLUME 90.1 fl (80-99); MEAN CORPUSCULAR HEMOGLOBIN 29.9 pg (27.0-31.0); MEAN CORPUSCULAR HGB CONC 33.2 pg (28.0-36.0); MEAN PLATELET VOLUME 7.9 fl; MONOCYTE ABSOLUTE 0.6 Th/cmm (0.3-1.0); PLATELET COUNT 239 Th/cmm (150-400); RED BLOOD COUNT 4.44 Mil/cmm (3.80-5.80); RED CELL DISTRIBUTION WIDTH 15.7 % (11.5-20.0); WHITE BLOOD COUNT 6.9 Th/cmm (4.8-10.8)
[2018-01-30 07:16] LABS: BUN - UREA NITROGEN 5 mg/dL (7-25); CALCIUM SERUM 9.1 mg/dL (8.6-10.3); CARBON DIOXIDE 24.7 mEq/L (21.0-31.0); CHLORIDE 95 mEq/L (98-107); CREATININE - SERUM 0.6 mg/dL (0.7-1.3); GFR AFRICAN-AMERICAN > 60.0 ml/min (>90); GFR NON AFRICAN-AMERICAN > 60.0 ml/min; GLUCOSE 103 mg/dL (70-105); POTASSIUM SERUM 3.7 mEq/L (3.5-5.1); SODIUM SERUM 127 mEq/L (136-145)
[2018-01-30] MEDS: Benztropine 1 MG TAB PO SCH ×2 (08:44→17:15)
[2018-01-30] MEDS: Aspirin 81mg Chewable Tab PO SCH (08:45)
[2018-01-30] MEDS: Lactulose 10 Gm/15 mL 30mL UDC PO SCH ×3 (08:45→21:05)
[2018-01-30] MEDS: Fenofibrate, Micronized 134 mg Cap PO SCH (08:45)
--- NOTE | 2018-01-30 10:26 | Internal Medicine Prog Note ---
Internal Medicine Subjective - Subjective Service Date: 01/30/18 Patient seen and examined:: with staff Patient is:: awake, verbal Per staff patient has:: no adverse event, tolerating meds Internal Medicine Objective - Results Result Diagrams: 01/30/18 05:44 01/30/18 05:44 Recent Labs: Laboratory Last Values WBC 6.9 Th/cmm (4.8-10.8) 01/30/18 05:44 RBC 4.44 Mil/cmm (3.80-5.80) 01/30/18 05:44 Hgb 13.3 gm/dL (12-16) 01/30/18 05:44 Hct 40.0 % (41.0-60) L 01/30/18 05:44 MCV 90.1 fl (80-99) 01/30/18 05:44 MCH 29.9 pg (27.0-31.0) 01/30/18 05:44 MCHC Differential 33.2 pg (28.0-36.0) 01/30/18 05:44 RDW 15.7 % (11.5-20.0) 01/30/18 05:44 Plt Count 239 Th/cmm (150-400) 01/30/18 05:44 MPV 7.9 fl 01/30/18 05:44 Neutrophils % 70.9 % (40.0-80.0) 01/30/18 05:44 Lymphocytes % 18.0 % (20.0-50.0) L 01/30/18 05:44 Monocytes % 8.9 % (2.0-10.0) 01/30/18 05:44 Eosinophils % 2.0 % (0.0-5.0) 01/30/18 05:44 Basophils % 0.2 % (0.0-2.0) 01/30/18 05:44 PT 11.7 SECONDS (9.5-11.5) H 01/28/18 12:30 INR 1.12 (0.5-1.4) 01/28/18 12:30 Sodium 127 mEq/L (136-145) L 01/30/18 05:44 Potassium 3.7 mEq/L (3.5-5.1) 01/30/18 05:44 Chloride 95 mEq/L (98-107) L 01/30/18 05:44 Carbon Dioxide 24.7 mEq/L (21.0-31.0) 01/30/18 05:44 Anion Gap 11.0 (7.0-16.0) 01/30/18 05:44 BUN 5 mg/dL (7-25) L 01/30/18 05:44 Creatinine 0.6 mg/dL (0.7-1.3) L 01/30/18 05:44 Est GFR ( Amer) > 60.0 ml/min (>90) 01/30/18 05:44 Est GFR (Non-Af Amer) > 60.0 ml/min 01/30/18 05:44 BUN/Creatinine Ratio 8.3 01/30/18 05:44 Glucose 103 mg/dL (70-105) 01/30/18 05:44 Calcium 9.1 mg/dL (8.6-10.3) 01/30/18 05:44 Total Bilirubin 0.3 mg/dL (0.3-1.0) 01/28/18 12:30 AST 10 U/L (13-39) L 01/28/18 12:30 ALT 3 U/L (7-52) L 01/28/18 12:30 Alkaline Phosphatase 65 U/L (34-104) 01/28/18 12:30 Ammonia 234 umol/L (16-53) H 01/29/18 05:35 Creatine Kinase 97 U/L (30-223) 01/28/18 12:30 Troponin I < 0.01 ng/mL (0.01-0.05) L 01/28/18 12:30 B-Natriuretic Peptide 28.8 pg/mL (5.0-100.0) 01/28/18 12:30 Total Protein 7.1 gm/dL (6.0-8.3) 01/28/18 12:30 Albumin 3.7 gm/dL (4.2-5.5) L 01/28/18 12:30 Globulin 3.4 gm/dL 01/28/18 12:30 Albumin/Globulin Ratio 1.1 (1.0-1.8) 01/28/18 12:30 Triglycerides 131 mg/dL (<150) 01/28/18 12:30 Cholesterol 125 mg/dL (<200) 01/28/18 12:30 LDL Cholesterol Direct 66 mg/dL (75-193) L 01/28/18 12:30 HDL Cholesterol 46 mg/dL (23-92) 01/28/18 12:30 Amylase 35 U/L (29-103) 01/28/18 12:30 Lipase 11 U/L (11-82) 01/28/18 12:30 Urine Source CLEAN C 01/28/18 15:22 Urine Color YELLOW 01/28/18 15:22 Urine Clarity CLEAR (CLEAR) 01/28/18 15:22 Urine pH 7.0 (4.6 - 8.0) 01/28/18 15:22 Ur Specific [place] 1.010 (1.005-1.030) 01/28/18 15:22 Urine Protein NEGATIVE mg/dL (NEGATIVE) 01/28/18 15:22 Urine Glucose (UA) NEGATIVE mg/dL (NEGATIVE) 01/28/18 15:22 Urine Ketones NEGATIVE mg/dL (NEGATIVE) 01/28/18 15:22 Urine Blood NEGATIVE (NEGATIVE) 01/28/18 15:22 Urine Nitrate NEGATIVE (NEGATIVE) 01/28/18 15:22 Urine Bilirubin NEGATIVE (NEGATIVE) 01/28/18 15:22 Urine Urobilinogen 1.0 E.U./dL (0.2 - 1.0) 01/28/18 15:22 Ur Leukocyte Esterase NEGATIVE (NEGATIVE) 01/28/18 15:22 Urine RBC NONE SEEN /hpf (0-5) 01/28/18 15:22 Urine WBC NONE SEEN /hpf (0-5) 01/28/18 15:22 Ur Epithelial Cells NONE SEEN /lpf (FEW) 01/28/18 15:22 Urine Bacteria NONE SEEN /hpf (NONE SEEN) 01/28/18 15:22 - Physical Exam Vitals and I&O: Vital Signs Temp 97 F 01/30/18 04:00 Pulse 53 01/30/18 09:05 Resp 18 01/30/18 04:00 BP 132/70 01/30/18 09:05 Pulse Ox 94 01/30/18 04:00 Intake & Output 01/29/18 01/30/18 01/30/18 18:59 06:59 18:59 Intake Total 1000 1161.333 Output Total 0 Balance 1000 1161.333 Weight (lbs) 127 lb 218 lb Intake: Intake, IV Amount 1000 961.333 D5-0.45NS 1,000 ml @ 80 1000 961.333 mls/hr IV .[id number] [facility] Rx #:[id number] Oral 200 Output: Stool 0 Other: # Voids 3 # Bowel Movements 0 Stool Characteristics Soft Weight Source Bedscale Active Medications: Current Medications Acetaminophen (Tylenol) 650 mg PO Q4HR PRN PRN Reason: Pain Or Fever above 101 Stop: 03/29/18 15:20 Al Hydrox/Mg Hydrox/Simethicone (Maalox) 30 ml PO Q6HR PRN PRN Reason: Dyspepsia Stop: 03/29/18 15:20 Albuterol Sulfate (Albuterol 2.5mg/3ml Neb Ud) 2.5 mg IH Q2HR PRN PRN Reason: Shortness of Breath or Wheeze Stop: 03/29/18 15:20 Aspirin (Aspirin Chewable) 81 mg PO DAILY [facility] Stop: 03/30/18 08:59 Last Admin: 01/30/18 08:45 Dose: 81 mg Atorvastatin Calcium (Lipitor) 20 mg PO HS [facility] PRN Reason: Protocol Stop: 03/29/18 20:59 Last Admin: 01/29/18 21:48 Dose: 20 mg Benztropine Mesylate (Cogentin) 1 mg PO BID [facility] Stop: 03/29/18 16:59 Last Admin: 01/30/18 08:44 Dose: 1 mg Buspirone HCl (Buspar) 10 mg PO BID [facility] PRN Reason: Protocol Stop: 03/29/18 16:59 Last Admin: 01/30/18 08:45 Dose: 10 mg Carbamazepine (Tegretol) 600 mg PO Q12HR [facility] PRN Reason: Protocol Stop: 03/29/18 20:59 Last Admin: 01/30/18 08:44 Dose: 600 mg Carbidopa/Levodopa (Sinemet 25mg-100 Mg) 1 tab PO TID [facility] Stop: 03/29/18 15:20 Last Admin: 01/30/18 08:44 Dose: 1 tab Divalproex Sodium (Depakote Dr) 1,000 mg PO BID [facility] PRN Reason: Protocol Stop: 03/29/18 16:59 Last Admin: 01/30/18 08:44 Dose: 1,000 mg Divalproex Sodium (Depakote Dr) 500 mg PO HS [facility] PRN Reason: Protocol Stop: 03/29/18 20:59 Last Admin: 01/29/18 21:48 Dose: 500 mg Docusate Sodium (Colace) 100 mg PO DAILY [facility] Stop: 03/30/18 08:59 Last Admin: 01/30/18 08:45 Dose: 100 mg Fenofibrate (Tricor) 134 mg PO DAILY [facility] Stop: 03/30/18 08:59 Last Admin: 01/30/18 08:45 Dose: 134 mg Guaifenesin (Robitussin) 100 mg PO Q4H PRN PRN Reason: Cough or Congestion Stop: 03/29/18 15:20 Last Admin: 01/29/18 08:11 Dose: 100 mg Heparin Sodium (Porcine) (Heparin) 5,000 units SUBQ Q12HR [facility] Stop: 03/30/18 20:59 Last Admin: 01/30/18 08:46 Dose: 5,000 units Dextrose/Sodium Chloride (D5-0.45ns) 1,000 mls @ 80 mls/hr IV .[id number] [facility] Stop: 03/29/18 15:20 Last Admin: 01/30/18 06:15 Dose: 80 mls/hr Ipratropium [place] (Atrovent Neb 0.5mg/2.5ml) 0.5 mg IH Q2HR PRN PRN Reason: Shortness of Breath or Wheeze Stop: 03/29/18 15:20 Lactulose (Cephulac) 30 gm PO TID [facility] Stop: 03/30/18 13:59 Last Admin: 01/30/18 08:45 Dose: 30 gm Levocarnitine (Carnitor) 990 mg PO BID [facility] Stop: 03/30/18 08:59 Last Admin: 01/30/18 08:45 Dose: 990 mg Lorazepam (Ativan) 0.5 mg PO Q4HR PRN; Protocol PRN Reason: Anxiety Stop: 03/30/18 13:41 Losartan Potassium (Cozaar) 100 mg PO DAILY [facility] Stop: 03/30/18 08:59 Last Admin: 01/30/18 09:05 Dose: Not Given Ondansetron HCl (Zofran) 4 mg IV Q8H PRN PRN Reason: Nausea / Vomiting Stop: 03/29/18 15:20 Oxybutynin Chloride (Ditropan) 5 mg PO HS [facility] Stop: 03/29/18 20:59 Last Admin: 01/29/18 21:48 Dose: 5 mg Pantoprazole Sodium (Protonix) 40 mg IVP DAILY [facility] Stop: 03/31/18 08:59 Last Admin: 01/30/18 08:45 Dose: 40 mg Paroxetine HCl (Paxil) 10 mg PO DAILY [facility] PRN Reason: Protocol Stop: 03/30/18 08:59 Last Admin: 01/30/18 08:44 Dose: 10 mg Quetiapine Fumarate (Seroquel) 50 mg PO BID [facility] PRN Reason: Protocol Stop: 03/29/18 16:59 Last Admin: 01/30/18 08:45 Dose: 50 mg General: weak, alert HEENT: NC/AT, PERRLA Neck: Supple Lungs: CTAB Cardiovascular: RRR, Normal S1, Normal S2, without murmur Abdomen: non-tender, positive bowel sound Extremities: excoriation Neurological: alert - Procedures Procedures: Procedures Procedure Code Date COLONOSCOPY W/LESION REMOVAL 40913 09/17/17 EXCISION OF ASCENDING COLON, ENDO, DIAGN [id number] 09/17/17 EXCISION OF RECTUM, ENDO [id number] 09/17/17 EXCISION OF TRANSVERSE COLON, ENDO [id number] 09/17/17 EXCISION OF TRANSVERSE COLON, ENDO, DIAGN [id number] 09/17/17 GROUP PSYCHOTHERAPY 89374 12/06/15 GROUP PSYCHOTHERAPY GZHZZZZ 12/06/15 OTHER GROUP THERAPY 94.44 06/02/14 RECREATIONAL THERAPY 93.81 07/28/11 Internal Medicine Assmt/Plan - Assessment Assessment: Intractable nausea/vomiting abdominal pain hyponatremia mild protein calorie malnutrition generalized weakness DJD hypercholesteremia schizoaffective disorder parkinson's - Plan Plan: switch ivf to NS gi follow up follow up labs in am monitor ammonia level continue current plan of care Nutritional Asmnt/Malnutr-PDOC - Dietary Evaluation Malnutrition Findings (Please click <Entered> for more info): Nutritional Asmnt/Malnutrition Start: 01/29/18 15: 57 Text: Status: Complete Freq: Document 01/29/18 15:57 SHANTEL (Rec: 01/29/18 16:19 SHANTEL [facility]) Nutritional Asmnt/Malnutrition Patient General Information Nutritional Screening Moderate Risk Diagnosis abd pain Pertinent Medical Hx/Surgical Hx CVA, DJD, hypercholesterolemia , schizoaffective disorder, parkinson's high ammonia level , [employer] shunt, craniotomy Subjective Information Consult received for skin integrity. Jani score 14. pt seen sleeping in bed at time of visit. Per MD note 01/29, pt was doing well with full liquid diet, no complain of abdominal pain at this time. Adm wt 225lb noted. but pt appeared thin. Current Diet Order/ Nutrition Support full liquid Pertinent Medications D5-0.45ns, olace, seroquel, protonix Pertinent Labs 01/29 Na 126, K 3.6, Cl 96, BUN 6, Cr 0.6, glucose 119, Ammonia 234 Nutritional Hx/Data Height 6 ft Height (Calculated Centimeters) 182.9 Current Weight (lbs) 127 lb Weight (Calculated Kilograms) 57.6 Weight (Calculated Grams) 97739.2 [place] Body Weight 178 Body Mass Index (BMI) 17.2 Weight Status Underweight GI Symptoms GI Symptoms None Last BM 0 Difficult in: None Skin Integrity/Comment: rash to scrotum, scar to left lateral malleolis Estimated Nutritional Goals BEE in Kcals: Using Current wt Calories/Kcals/Kg 30-35 Kcals Calculated 1924-2250 Protein: Using Current wt Protein g/k-1.2 Protein Calculated 58-70 Fluid: ml 1740-2030ml (1ml/kcal) Nutritional Problem 1. Problem Problem altered GI function Etiology possible GI dysfunction Signs/Symptoms: abdominal pain over the past few days and pt now on full liquid Intervention/Recommendation Comments 1. Advance diet as tolerated. 2. Monitor PO intake, wt, labs and skin integrity 3. F/U as high risk in 2-3 days, 01/31-02/01 Expected Outcomes/Goals Expected Outcomes/Goals 1. PO intake to meet at least 75% of nutritional needs. 2. Wt stability, GI function to improve,. skin to remain intact, labs to approach WNL.
[2018-01-30] MEDS: Sodium Chloride 0.9% 1,000 ML IV SCH (11:24)
--- NOTE | 2018-01-30 12:14 | GI Progress Note ---
Subjective - Review of Systems Service Date: 01/30/18 Subjective: No abd pain, no vomiting. Objective - Results Result Diagrams: 01/30/18 05:44 01/30/18 05:44 Recent Labs: Laboratory Last Values WBC 6.9 Th/cmm (4.8-10.8) 01/30/18 05:44 RBC 4.44 Mil/cmm (3.80-5.80) 01/30/18 05:44 Hgb 13.3 gm/dL (12-16) 01/30/18 05:44 Hct 40.0 % (41.0-60) L 01/30/18 05:44 MCV 90.1 fl (80-99) 01/30/18 05:44 MCH 29.9 pg (27.0-31.0) 01/30/18 05:44 MCHC Differential 33.2 pg (28.0-36.0) 01/30/18 05:44 RDW 15.7 % (11.5-20.0) 01/30/18 05:44 Plt Count 239 Th/cmm (150-400) 01/30/18 05:44 MPV 7.9 fl 01/30/18 05:44 Neutrophils % 70.9 % (40.0-80.0) 01/30/18 05:44 Lymphocytes % 18.0 % (20.0-50.0) L 01/30/18 05:44 Monocytes % 8.9 % (2.0-10.0) 01/30/18 05:44 Eosinophils % 2.0 % (0.0-5.0) 01/30/18 05:44 Basophils % 0.2 % (0.0-2.0) 01/30/18 05:44 PT 11.7 SECONDS (9.5-11.5) H 01/28/18 12:30 INR 1.12 (0.5-1.4) 01/28/18 12:30 Sodium 127 mEq/L (136-145) L 01/30/18 05:44 Potassium 3.7 mEq/L (3.5-5.1) 01/30/18 05:44 Chloride 95 mEq/L (98-107) L 01/30/18 05:44 Carbon Dioxide 24.7 mEq/L (21.0-31.0) 01/30/18 05:44 Anion Gap 11.0 (7.0-16.0) 01/30/18 05:44 BUN 5 mg/dL (7-25) L 01/30/18 05:44 Creatinine 0.6 mg/dL (0.7-1.3) L 01/30/18 05:44 Est GFR ( Amer) > 60.0 ml/min (>90) 01/30/18 05:44 Est GFR (Non-Af Amer) > 60.0 ml/min 01/30/18 05:44 BUN/Creatinine Ratio 8.3 01/30/18 05:44 Glucose 103 mg/dL (70-105) 01/30/18 05:44 Calcium 9.1 mg/dL (8.6-10.3) 01/30/18 05:44 Total Bilirubin 0.3 mg/dL (0.3-1.0) 01/28/18 12:30 AST 10 U/L (13-39) L 01/28/18 12:30 ALT 3 U/L (7-52) L 01/28/18 12:30 Alkaline Phosphatase 65 U/L (34-104) 01/28/18 12:30 Ammonia 234 umol/L (16-53) H 01/29/18 05:35 Creatine Kinase 97 U/L (30-223) 01/28/18 12:30 Troponin I < 0.01 ng/mL (0.01-0.05) L 01/28/18 12:30 B-Natriuretic Peptide 28.8 pg/mL (5.0-100.0) 01/28/18 12:30 Total Protein 7.1 gm/dL (6.0-8.3) 01/28/18 12:30 Albumin 3.7 gm/dL (4.2-5.5) L 01/28/18 12:30 Globulin 3.4 gm/dL 01/28/18 12:30 Albumin/Globulin Ratio 1.1 (1.0-1.8) 01/28/18 12:30 Triglycerides 131 mg/dL (<150) 01/28/18 12:30 Cholesterol 125 mg/dL (<200) 01/28/18 12:30 LDL Cholesterol Direct 66 mg/dL (75-193) L 01/28/18 12:30 HDL Cholesterol 46 mg/dL (23-92) 01/28/18 12:30 Amylase 35 U/L (29-103) 01/28/18 12:30 Lipase 11 U/L (11-82) 01/28/18 12:30 Urine Source CLEAN C 01/28/18 15:22 Urine Color YELLOW 01/28/18 15:22 Urine Clarity CLEAR (CLEAR) 01/28/18 15:22 Urine pH 7.0 (4.6 - 8.0) 01/28/18 15:22 Ur Specific [place] 1.010 (1.005-1.030) 01/28/18 15:22 Urine Protein NEGATIVE mg/dL (NEGATIVE) 01/28/18 15:22 Urine Glucose (UA) NEGATIVE mg/dL (NEGATIVE) 01/28/18 15:22 Urine Ketones NEGATIVE mg/dL (NEGATIVE) 01/28/18 15:22 Urine Blood NEGATIVE (NEGATIVE) 01/28/18 15:22 Urine Nitrate NEGATIVE (NEGATIVE) 01/28/18 15:22 Urine Bilirubin NEGATIVE (NEGATIVE) 01/28/18 15:22 Urine Urobilinogen 1.0 E.U./dL (0.2 - 1.0) 01/28/18 15:22 Ur Leukocyte Esterase NEGATIVE (NEGATIVE) 01/28/18 15:22 Urine RBC NONE SEEN /hpf (0-5) 01/28/18 15:22 Urine WBC NONE SEEN /hpf (0-5) 01/28/18 15:22 Ur Epithelial Cells NONE SEEN /lpf (FEW) 01/28/18 15:22 Urine Bacteria NONE SEEN /hpf (NONE SEEN) 01/28/18 15:22 - Physical Exam Vitals and I&O: Vital Signs Temp 96.2 F 01/30/18 08:00 Pulse 53 01/30/18 09:05 Resp 19 01/30/18 10:29 BP 132/70 01/30/18 09:05 Pulse Ox 95 01/30/18 08:00 Intake & Output 01/29/18 01/30/18 01/30/18 18:59 06:59 18:59 Intake Total 1000 1161.333 Output Total 0 Balance 1000 1161.333 Weight (lbs) 57.606 kg 98.883 kg Intake: Intake, IV Amount 1000 961.333 D5-0.45NS 1,000 ml @ 80 1000 961.333 mls/hr IV .[id number] [facility] Rx #:[id number] Oral 200 Output: Stool 0 Other: # Voids 3 # Bowel Movements 0 Stool Characteristics Soft Weight Source Bedscale Active Medications: Current Medications Acetaminophen (Tylenol) 650 mg PO Q4HR PRN PRN Reason: Pain Or Fever above 101 Stop: 03/29/18 15:20 Al Hydrox/Mg Hydrox/Simethicone (Maalox) 30 ml PO Q6HR PRN PRN Reason: Dyspepsia Stop: 03/29/18 15:20 Albuterol Sulfate (Albuterol 2.5mg/3ml Neb Ud) 2.5 mg IH Q2HR PRN PRN Reason: Shortness of Breath or Wheeze Stop: 03/29/18 15:20 Aspirin (Aspirin Chewable) 81 mg PO DAILY [facility] Stop: 03/30/18 08:59 Last Admin: 01/30/18 08:45 Dose: 81 mg Atorvastatin Calcium (Lipitor) 20 mg PO [facility] PRN Reason: Protocol Stop: 03/29/18 20:59 Last Admin: 01/29/18 21:48 Dose: 20 mg Benztropine Mesylate (Cogentin) 1 mg PO BID [facility] Stop: 03/29/18 16:59 Last Admin: 01/30/18 08:44 Dose: 1 mg Buspirone HCl (Buspar) 10 mg PO BID [facility] PRN Reason: Protocol Stop: 03/29/18 16:59 Last Admin: 01/30/18 08:45 Dose: 10 mg Carbamazepine (Tegretol) 600 mg PO Q12HR [facility] PRN Reason: Protocol Stop: 03/29/18 20:59 Last Admin: 01/30/18 08:44 Dose: 600 mg Carbidopa/Levodopa (Sinemet 25mg-100 Mg) 1 tab PO TID [facility] Stop: 03/29/18 15:20 Last Admin: 01/30/18 08:44 Dose: 1 tab Divalproex Sodium (Depakote Dr) 1,000 mg PO BID [facility] PRN Reason: Protocol Stop: 03/29/18 16:59 Last Admin: 01/30/18 08:44 Dose: 1,000 mg Divalproex Sodium (Depakote Dr) 500 mg PO HS [facility] PRN Reason: Protocol Stop: 03/29/18 20:59 Last Admin: 01/29/18 21:48 Dose: 500 mg Docusate Sodium (Colace) 100 mg PO DAILY [facility] Stop: 03/30/18 08:59 Last Admin: 01/30/18 08:45 Dose: 100 mg Fenofibrate (Tricor) 134 mg PO DAILY [facility] Stop: 03/30/18 08:59 Last Admin: 01/30/18 08:45 Dose: 134 mg Guaifenesin (Robitussin) 100 mg PO Q4H PRN PRN Reason: Cough or Congestion Stop: 03/29/18 15:20 Last Admin: 01/29/18 08:11 Dose: 100 mg Heparin Sodium (Porcine) (Heparin) 5,000 units SUBQ Q12HR [facility] Stop: 03/30/18 20:59 Last Admin: 01/30/18 08:46 Dose: 5,000 units Sodium Chloride (Nacl 0.9%) 1,000 mls @ 80 mls/hr IV .[id number] [facility] Stop: 03/31/18 10:26 Last Admin: 01/30/18 11:24 Dose: 80 mls/hr Ipratropium [place] (Atrovent Neb 0.5mg/2.5ml) 0.5 mg IH Q2HR PRN PRN Reason: Shortness of Breath or Wheeze Stop: 03/29/18 15:20 Lactulose (Cephulac) 30 gm PO TID [facility] Stop: 03/30/18 13:59 Last Admin: 01/30/18 08:45 Dose: 30 gm Levocarnitine (Carnitor) 990 mg PO BID [facility] Stop: 03/30/18 08:59 Last Admin: 01/30/18 08:45 Dose: 990 mg Lorazepam (Ativan) 0.5 mg PO Q4HR PRN; Protocol PRN Reason: Anxiety Stop: 03/30/18 13:41 Losartan Potassium (Cozaar) 100 mg PO DAILY [facility] Stop: 03/30/18 08:59 Last Admin: 01/30/18 09:05 Dose: Not Given Ondansetron HCl (Zofran) 4 mg IV Q8H PRN PRN Reason: Nausea / Vomiting Stop: 03/29/18 15:20 Oxybutynin Chloride (Ditropan) 5 mg PO HS [facility] Stop: 03/29/18 20:59 Last Admin: 01/29/18 21:48 Dose: 5 mg Pantoprazole Sodium (Protonix) 40 mg IVP DAILY [facility] Stop: 03/31/18 08:59 Last Admin: 01/30/18 08:45 Dose: 40 mg Paroxetine HCl (Paxil) 10 mg PO DAILY [facility] PRN Reason: Protocol Stop: 03/30/18 08:59 Last Admin: 01/30/18 08:44 Dose: 10 mg Quetiapine Fumarate (Seroquel) 50 mg PO BID [facility] PRN Reason: Protocol Stop: 03/29/18 16:59 Last Admin: 01/30/18 08:45 Dose: 50 mg General: Alert HEENT: Atraumatic, PERRLA, EOMI Neck: Supple Cardiovascular: Regular rate Abdomen: Bowel sounds, Soft, Obese, no Tender, no Hepatomegaly, no Splenomegaly , no Distended, no Rebound, no Mass Extremities: no Clubbing Skin: no Rash - Procedures Procedures: Procedures Procedure Code Date COLONOSCOPY W/LESION REMOVAL 72869 09/17/17 EXCISION OF ASCENDING COLON, ENDO, DIAGN [id number] 09/17/17 EXCISION OF RECTUM, ENDO [id number] 09/17/17 EXCISION OF TRANSVERSE COLON, ENDO [id number] 09/17/17 EXCISION OF TRANSVERSE COLON, ENDO, DIAGN [id number] 09/17/17 GROUP PSYCHOTHERAPY 09379 12/06/15 GROUP PSYCHOTHERAPY GZHZZZZ 12/06/15 OTHER GROUP THERAPY 94.44 06/02/14 RECREATIONAL THERAPY 93.81 07/28/11 Assessment/Plan - Problem List Patient Problems: All Active Problems N/V WITH GENERALIZED ABDOMINAL PAIN (Acute) - Assessment Assessment: # Nausea and vomiting # Abd pain These issues have resolved, pt tolerating his diet. Has history of ischemic colitis diagnosed at colonoscopy in late 2017. Due again in 3 years # Possible cirrhosis CTA showed nodular liver and pt had elevated ammonia. Plts are not depressed however. Pt likely has early cirrhosis, etiology possible ANAYA Plan: - cont lactulose tid, can titrate to 2-3 loose stools per day - US in 6 months for HCC screening - EGD as outpt in 1 year for variceal screening - cont diet as tolerated - outpt GI followup Thank you for allowing us to participate in the care of this patient, please call with any questions. GI to see as needed
[2018-01-30] MEDS: Atorvastatin Calcium 10 MG TAB PO SCH (21:05)
[2018-01-31 06:22] LABS: % BASOPHILS 0.2 % (0.0-2.0); % EOSINOPHILS 2.1 % (0.0-5.0); % LYMPHOCYTES 20.8 % (20.0-50.0); % MONOCYTES 7.8 % (2.0-10.0); % NEUTROPHILS 69.1 % (40.0-80.0); EOSINOPHILE ABSOLUTE 0.1 Th/cmm (0.1-0.4); HEMATOCRIT 41.3 % (41.0-60); HEMOGLOBIN 13.5 gm/dL (12-16); LYMPHOCYTE ABSOLUTE 1.3 Th/cmm (1.5-3.0); MEAN CELL VOLUME 89.6 fl (80-99); MEAN CORPUSCULAR HEMOGLOBIN 29.4 pg (27.0-31.0); MEAN CORPUSCULAR HGB CONC 32.8 pg (28.0-36.0); MEAN PLATELET VOLUME 8.1 fl; MONOCYTE ABSOLUTE 0.5 Th/cmm (0.3-1.0); NEUTROPHILE ABSOLUTE 4.5 Th/cmm (1.8-8.0); PLATELET COUNT 265 Th/cmm (150-400); RED BLOOD COUNT 4.61 Mil/cmm (3.80-5.80); RED CELL DISTRIBUTION WIDTH 16.1 % (11.5-20.0); WHITE BLOOD COUNT 6.4 Th/cmm (4.8-10.8)
[2018-01-31] MEDS: Sodium Chloride 0.9% 1,000 ML IV SCH (06:44)
[2018-01-31 06:47] LABS: ANION GAP 10.6 (7.0-16.0); BUN - UREA NITROGEN 9 mg/dL (7-25); CALCIUM SERUM 9.3 mg/dL (8.6-10.3); CARBON DIOXIDE 23.3 mEq/L (21.0-31.0); CHLORIDE 95 mEq/L (98-107); CREATININE - SERUM 0.6 mg/dL (0.7-1.3); GFR AFRICAN-AMERICAN > 60.0 ml/min (>90); GFR NON AFRICAN-AMERICAN > 60.0 ml/min; GLUCOSE 98 mg/dL (70-105); POTASSIUM SERUM 3.9 mEq/L (3.5-5.1); SODIUM SERUM 125 mEq/L (136-145)
[2018-01-31] MEDS: Fenofibrate, Micronized 134 mg Cap PO SCH (09:08)
[2018-01-31] MEDS: Benztropine 1 MG TAB PO SCH ×3 (09:09→16:57)
[2018-01-31] MEDS: Aspirin 81mg Chewable Tab PO SCH (09:09)
[2018-01-31] MEDS: Lactulose 10 Gm/15 mL 30mL UDC PO SCH ×3 (09:09→14:56)
--- NOTE | 2018-01-31 16:29 | Internal Medicine Prog Note ---
Internal Medicine Subjective - Subjective Service Date: 01/31/18 (va [id number]) Patient is:: awake, verbal Per staff patient has:: no adverse event, tolerating meds Internal Medicine Objective - Results Result Diagrams: 01/31/18 05:45 01/31/18 05:45 Recent Labs: Laboratory Last Values WBC 6.4 Th/cmm (4.8-10.8) 01/31/18 05:45 RBC 4.61 Mil/cmm (3.80-5.80) 01/31/18 05:45 Hgb 13.5 gm/dL (12-16) 01/31/18 05:45 Hct 41.3 % (41.0-60) 01/31/18 05:45 MCV 89.6 fl (80-99) 01/31/18 05:45 MCH 29.4 pg (27.0-31.0) 01/31/18 05:45 MCHC Differential 32.8 pg (28.0-36.0) 01/31/18 05:45 RDW 16.1 % (11.5-20.0) 01/31/18 05:45 Plt Count 265 Th/cmm (150-400) 01/31/18 05:45 MPV 8.1 fl 01/31/18 05:45 Neutrophils % 69.1 % (40.0-80.0) 01/31/18 05:45 Lymphocytes % 20.8 % (20.0-50.0) 01/31/18 05:45 Monocytes % 7.8 % (2.0-10.0) 01/31/18 05:45 Eosinophils % 2.1 % (0.0-5.0) 01/31/18 05:45 Basophils % 0.2 % (0.0-2.0) 01/31/18 05:45 PT 11.7 SECONDS (9.5-11.5) H 01/28/18 12:30 INR 1.12 (0.5-1.4) 01/28/18 12:30 Sodium 125 mEq/L (136-145) L 01/31/18 05:45 Potassium 3.9 mEq/L (3.5-5.1) 01/31/18 05:45 Chloride 95 mEq/L (98-107) L 01/31/18 05:45 Carbon Dioxide 23.3 mEq/L (21.0-31.0) 01/31/18 05:45 Anion Gap 10.6 (7.0-16.0) 01/31/18 05:45 BUN 9 mg/dL (7-25) 01/31/18 05:45 Creatinine 0.6 mg/dL (0.7-1.3) L 01/31/18 05:45 Est GFR ( Amer) > 60.0 ml/min (>90) 01/31/18 05:45 Est GFR (Non-Af Amer) > 60.0 ml/min 01/31/18 05:45 BUN/Creatinine Ratio 15.0 01/31/18 05:45 Glucose 98 mg/dL (70-105) 01/31/18 05:45 Calcium 9.3 mg/dL (8.6-10.3) 01/31/18 05:45 Total Bilirubin 0.3 mg/dL (0.3-1.0) 01/28/18 12:30 AST 10 U/L (13-39) L 01/28/18 12:30 ALT 3 U/L (7-52) L 01/28/18 12:30 Alkaline Phosphatase 65 U/L (34-104) 01/28/18 12:30 Ammonia 153 umol/L (16-53) H 01/31/18 05:45 Creatine Kinase 97 U/L (30-223) 01/28/18 12:30 Troponin I < 0.01 ng/mL (0.01-0.05) L 01/28/18 12:30 B-Natriuretic Peptide 28.8 pg/mL (5.0-100.0) 01/28/18 12:30 Total Protein 7.1 gm/dL (6.0-8.3) 01/28/18 12:30 Albumin 3.7 gm/dL (4.2-5.5) L 01/28/18 12:30 Globulin 3.4 gm/dL 01/28/18 12:30 Albumin/Globulin Ratio 1.1 (1.0-1.8) 01/28/18 12:30 Triglycerides 131 mg/dL (<150) 01/28/18 12:30 Cholesterol 125 mg/dL (<200) 01/28/18 12:30 LDL Cholesterol Direct 66 mg/dL (75-193) L 01/28/18 12:30 HDL Cholesterol 46 mg/dL (23-92) 01/28/18 12:30 Amylase 35 U/L (29-103) 01/28/18 12:30 Lipase 11 U/L (11-82) 01/28/18 12:30 Urine Source CLEAN C 01/28/18 15:22 Urine Color YELLOW 01/28/18 15:22 Urine Clarity CLEAR (CLEAR) 01/28/18 15:22 Urine pH 7.0 (4.6 - 8.0) 01/28/18 15:22 Ur Specific [place] 1.010 (1.005-1.030) 01/28/18 15:22 Urine Protein NEGATIVE mg/dL (NEGATIVE) 01/28/18 15:22 Urine Glucose (UA) NEGATIVE mg/dL (NEGATIVE) 01/28/18 15:22 Urine Ketones NEGATIVE mg/dL (NEGATIVE) 01/28/18 15:22 Urine Blood NEGATIVE (NEGATIVE) 01/28/18 15:22 Urine Nitrate NEGATIVE (NEGATIVE) 01/28/18 15:22 Urine Bilirubin NEGATIVE (NEGATIVE) 01/28/18 15:22 Urine Urobilinogen 1.0 E.U./dL (0.2 - 1.0) 01/28/18 15:22 Ur Leukocyte Esterase NEGATIVE (NEGATIVE) 01/28/18 15:22 Urine RBC NONE SEEN /hpf (0-5) 01/28/18 15:22 Urine WBC NONE SEEN /hpf (0-5) 01/28/18 15:22 Ur Epithelial Cells NONE SEEN /lpf (FEW) 01/28/18 15:22 Urine Bacteria NONE SEEN /hpf (NONE SEEN) 01/28/18 15:22 - Physical Exam Vitals and I&O: Vital Signs Temp 98.7 F 01/31/18 16:05 Pulse 59 01/31/18 16:05 Resp 18 01/31/18 16:05 BP 129/60 01/31/18 16:05 Pulse Ox 95 01/31/18 16:05 Intake & Output 01/30/18 01/31/18 01/31/18 18:59 06:59 18:59 Intake Total 480 1000 Balance 480 1000 Weight (lbs) 218 lb 223 lb Intake: Intake, IV Amount 1000 Sodium Chloride 0.9% 1, 1000 000 ml @ 80 mls/hr IV . [id number] [facility] Rx#:[id number] Oral 480 Other: # Voids 3 3 # Bowel Movements 0 Weight Source Estimated Bedscale Active Medications: Current Medications Acetaminophen (Tylenol) 650 mg PO Q4HR PRN PRN Reason: Pain Or Fever above 101 Stop: 03/29/18 15:20 Al Hydrox/Mg Hydrox/Simethicone (Maalox) 30 ml PO Q6HR PRN PRN Reason: Dyspepsia Stop: 03/29/18 15:20 Albuterol Sulfate (Albuterol 2.5mg/3ml Neb Ud) 2.5 mg IH Q2HR PRN PRN Reason: Shortness of Breath or Wheeze Stop: 03/29/18 15:20 Aspirin (Aspirin Chewable) 81 mg PO DAILY [facility] Stop: 03/30/18 08:59 Last Admin: 01/31/18 09:09 Dose: 81 mg Atorvastatin Calcium (Lipitor) 20 mg PO HS DARA PRN Reason: Protocol Stop: 03/29/18 20:59 Last Admin: 01/30/18 21:05 Dose: 20 mg Benztropine Mesylate (Cogentin) 1 mg PO BID [facility] Stop: 03/29/18 16:59 Last Admin: 01/31/18 09:28 Dose: Not Given Buspirone HCl (Buspar) 10 mg PO BID DARA PRN Reason: Protocol Stop: 03/29/18 16:59 Last Admin: 01/31/18 09:28 Dose: Not Given Carbamazepine (Tegretol) 600 mg PO Q12HR DARA PRN Reason: Protocol Stop: 03/29/18 20:59 Last Admin: 01/31/18 09:08 Dose: 600 mg Carbidopa/Levodopa (Sinemet 25mg-100 Mg) 1 tab PO TID [facility] Stop: 03/29/18 15:20 Last Admin: 01/31/18 14:56 Dose: 1 tab Divalproex Sodium (Depakote Dr) 1,000 mg PO BID DARA PRN Reason: Protocol Stop: 03/29/18 16:59 Last Admin: 01/31/18 09:28 Dose: Not Given Divalproex Sodium (Depakote Dr) 500 mg PO HS DARA PRN Reason: Protocol Stop: 03/29/18 20:59 Last Admin: 01/30/18 21:05 Dose: 500 mg Docusate Sodium (Colace) 100 mg PO DAILY [facility] Stop: 03/30/18 08:59 Last Admin: 01/31/18 09:09 Dose: 100 mg Fenofibrate (Tricor) 134 mg PO DAILY DARA Stop: 03/30/18 08:59 Last Admin: 01/31/18 09:08 Dose: 134 mg Guaifenesin (Robitussin) 100 mg PO Q4H PRN PRN Reason: Cough or Congestion Stop: 03/29/18 15:20 Last Admin: 01/29/18 08:11 Dose: 100 mg Heparin Sodium (Porcine) (Heparin) 5,000 units SUBQ Q12HR [facility] Stop: 03/30/18 20:59 Last Admin: 01/31/18 09:10 Dose: 5,000 units Sodium Chloride (Nacl 0.9%) 1,000 mls @ 80 mls/hr IV .[id number] [facility] Stop: 03/31/18 10:26 Last Admin: 01/31/18 06:44 Dose: 80 mls/hr Ipratropium [place] (Atrovent Neb 0.5mg/2.5ml) 0.5 mg IH Q2HR PRN PRN Reason: Shortness of Breath or Wheeze Stop: 03/29/18 15:20 Lactulose (Cephulac) 30 gm PO TID [facility] Stop: 03/30/18 13:59 Last Admin: 01/31/18 14:56 Dose: 30 gm Levocarnitine (Carnitor) 990 mg PO BID [facility] Stop: 03/30/18 08:59 Last Admin: 01/31/18 09:28 Dose: Not Given Lorazepam (Ativan) 0.5 mg PO Q4HR PRN; Protocol PRN Reason: Anxiety Stop: 03/30/18 13:41 Losartan Potassium (Cozaar) 100 mg PO DAILY [facility] Stop: 03/30/18 08:59 Last Admin: 01/31/18 09:09 Dose: 100 mg Ondansetron HCl (Zofran) 4 mg IV Q8H PRN PRN Reason: Nausea / Vomiting Stop: 03/29/18 15:20 Oxybutynin Chloride (Ditropan) 5 mg PO HS [facility] Stop: 03/29/18 20:59 Last Admin: 01/30/18 21:04 Dose: 5 mg Pantoprazole Sodium (Protonix) 40 mg IVP DAILY [facility] Stop: 03/31/18 08:59 Last Admin: 01/31/18 09:08 Dose: 40 mg Paroxetine HCl (Paxil) 10 mg PO DAILY [facility] PRN Reason: Protocol Stop: 03/30/18 08:59 Last Admin: 01/31/18 09:09 Dose: 10 mg Quetiapine Fumarate (Seroquel) 50 mg PO BID [facility] PRN Reason: Protocol Stop: 03/29/18 16:59 Last Admin: 01/31/18 09:28 Dose: Not Given Sodium Chloride (Nacl Tab) 1 gm PO BID [facility] Stop: 04/01/18 16:59 General: weak, alert HEENT: NC/AT, PERRLA Neck: Supple Lungs: CTAB Cardiovascular: RRR, Normal S1, Normal S2, without murmur Abdomen: non-tender, positive bowel sound Extremities: excoriation Neurological: alert - Procedures Procedures: Procedures Procedure Code Date COLONOSCOPY W/LESION REMOVAL 91906 09/17/17 EXCISION OF ASCENDING COLON, ENDO, DIAGN [id number] 09/17/17 EXCISION OF RECTUM, ENDO [id number] 09/17/17 EXCISION OF TRANSVERSE COLON, ENDO [id number] 09/17/17 EXCISION OF TRANSVERSE COLON, ENDO, DIAGN [id number] 09/17/17 GROUP PSYCHOTHERAPY 97770 12/06/15 GROUP PSYCHOTHERAPY [id number] 12/06/15 OTHER GROUP THERAPY 94.44 06/02/14 RECREATIONAL THERAPY 93.81 07/28/11 Internal Medicine Assmt/Plan - Assessment Assessment: Intractable nausea/vomiting abdominal pain hyponatremia mild protein calorie malnutrition generalized weakness DJD hypercholesteremia schizoaffective disorder parkinson's - Plan Plan: switch ivf to NS gi follow up follow up labs in am monitor ammonia level continue current plan of care Nutritional Asmnt/Malnutr-PDOC - Dietary Evaluation Malnutrition Findings (Please click <Entered> for more info): Nutritional Asmnt/Malnutrition Start: 01/29/18 15: 57 Text: Status: Complete Freq: Document 01/29/18 15:57 SHANTEL (Rec: 01/29/18 16:19 LCLALA [id number]) Nutritional Asmnt/Malnutrition Patient General Information Nutritional Screening Moderate Risk Diagnosis abd pain Pertinent Medical Hx/Surgical Hx CVA, DJD, hypercholesterolemia , schizoaffective disorder, parkinson's high ammonia level , [employer] shunt, craniotomy Subjective Information Consult received for skin integrity. Jani score 14. pt seen sleeping in bed at time of visit. Per MD note 01/29, pt was doing well with full liquid diet, no complain of abdominal pain at this time. Adm wt 225lb noted. but pt appeared thin. Current Diet Order/ Nutrition Support full liquid Pertinent Medications D5-0.45ns, olace, seroquel, protonix Pertinent Labs 01/29 Na 126, K 3.6, Cl 96, BUN 6, Cr 0.6, glucose 119, Ammonia 234 Nutritional Hx/Data Height 6 ft Height (Calculated Centimeters) 182.9 Current Weight (lbs) 127 lb Weight (Calculated Kilograms) 57.6 Weight (Calculated Grams) 65403.2 [place] Body Weight 178 Body Mass Index (BMI) 17.2 Weight Status Underweight GI Symptoms GI Symptoms None Last BM 0 Difficult in: None Skin Integrity/Comment: rash to scrotum, scar to left lateral malleolis Estimated Nutritional Goals BEE in Kcals: Using Current wt Calories/Kcals/Kg 30-35 Kcals Calculated 5008-8200 Protein: Using Current wt Protein g/k-1.2 Protein Calculated 58-70 Fluid: ml 1740-2030ml (1ml/kcal) Nutritional Problem 1. Problem Problem altered GI function Etiology possible GI dysfunction Signs/Symptoms: abdominal pain over the past few days and pt now on full liquid Intervention/Recommendation Comments 1. Advance diet as tolerated. 2. Monitor PO intake, wt, labs and skin integrity 3. F/U as high risk in 2-3 days, 01/31-02/01 Expected Outcomes/Goals Expected Outcomes/Goals 1. PO intake to meet at least 75% of nutritional needs. 2. Wt stability, GI function to improve,. skin to remain intact, labs to approach WNL.
--- NOTE | 2018-01-31 21:16 | Discharge Summary ---
DATE OF DISCHARGE: 01/31/2018 DISCHARGE DIAGNOSES: Intractable nausea, vomiting, which has resolved, abdominal pain resolved, hyponatremia, treated, mild protein-calorie malnutrition, generalized weakness, EGD, hypercholesterolemia, schizoaffective disorder, Parkinson's. HISTORY OF PRESENT ILLNESS: A 67-year-old male who is well known to me from [facility], was called on this patient due to having a 3 times episode of vomiting. The patient has been complaining of nausea and the patient was noted to have increasing confusion. For this reason, the patient was admitted to the med/surg unit. PHYSICAL EXAMINATION: GENERAL: The patient is well-developed, well-nourished, no acute distress. VITAL SIGNS: Stable. HEENT: Head, normocephalic, atraumatic. NECK: Supple. No mass. LUNGS: Clear bilaterally. ABDOMEN: Soft, nontender. During the hospital stay, the patient was admitted to the med/surg unit. The patient was kept on IV fluids for hydration. The patient was on IV fluids of D5 half NS and was later switched to normal saline due to patient's sodium level. The patient was also placed on sodium chloride tabs. The patient was being followed by GI. The plan of care for this patient was for medical supportive measures and no further procedures will be taken in place. The patient was being seen by psychiatrist as well. The patient's nausea and vomiting has been resolved as well as abdominal pain. For this reason, the patient is stable for discharge. CONDITION UPON DISCHARGE: Fair. DISPOSITION: [facility]# [id number]
--- NOTE | 2018-02-02 14:55 | Internal Medicine Prog Note ---
Internal Medicine Subjective - Subjective Patient seen and examined:: with staff, chart reviewed Patient is:: awake, verbal Per staff patient has:: no adverse event, no episodes of fall, eating well, tolerating meds Internal Medicine Objective - Results Result Diagrams: 01/31/18 05:45 01/31/18 05:45 Recent Labs: Laboratory Last Values WBC 6.4 Th/cmm (4.8-10.8) 01/31/18 05:45 RBC 4.61 Mil/cmm (3.80-5.80) 01/31/18 05:45 Hgb 13.5 gm/dL (12-16) 01/31/18 05:45 Hct 41.3 % (41.0-60) 01/31/18 05:45 MCV 89.6 fl (80-99) 01/31/18 05:45 MCH 29.4 pg (27.0-31.0) 01/31/18 05:45 MCHC Differential 32.8 pg (28.0-36.0) 01/31/18 05:45 RDW 16.1 % (11.5-20.0) 01/31/18 05:45 Plt Count 265 Th/cmm (150-400) 01/31/18 05:45 MPV 8.1 fl 01/31/18 05:45 Neutrophils % 69.1 % (40.0-80.0) 01/31/18 05:45 Lymphocytes % 20.8 % (20.0-50.0) 01/31/18 05:45 Monocytes % 7.8 % (2.0-10.0) 01/31/18 05:45 Eosinophils % 2.1 % (0.0-5.0) 01/31/18 05:45 Basophils % 0.2 % (0.0-2.0) 01/31/18 05:45 PT 11.7 SECONDS (9.5-11.5) H 01/28/18 12:30 INR 1.12 (0.5-1.4) 01/28/18 12:30 Sodium 125 mEq/L (136-145) L 01/31/18 05:45 Potassium 3.9 mEq/L (3.5-5.1) 01/31/18 05:45 Chloride 95 mEq/L (98-107) L 01/31/18 05:45 Carbon Dioxide 23.3 mEq/L (21.0-31.0) 01/31/18 05:45 Anion Gap 10.6 (7.0-16.0) 01/31/18 05:45 BUN 9 mg/dL (7-25) 01/31/18 05:45 Creatinine 0.6 mg/dL (0.7-1.3) L 01/31/18 05:45 Est GFR ( Amer) > 60.0 ml/min (>90) 01/31/18 05:45 Est GFR (Non-Af Amer) > 60.0 ml/min 01/31/18 05:45 BUN/Creatinine Ratio 15.0 01/31/18 05:45 Glucose 98 mg/dL (70-105) 01/31/18 05:45 Calcium 9.3 mg/dL (8.6-10.3) 01/31/18 05:45 Total Bilirubin 0.3 mg/dL (0.3-1.0) 01/28/18 12:30 AST 10 U/L (13-39) L 01/28/18 12:30 ALT 3 U/L (7-52) L 01/28/18 12:30 Alkaline Phosphatase 65 U/L (34-104) 01/28/18 12:30 Ammonia 153 umol/L (16-53) H 01/31/18 05:45 Creatine Kinase 97 U/L (30-223) 01/28/18 12:30 Troponin I < 0.01 ng/mL (0.01-0.05) L 01/28/18 12:30 B-Natriuretic Peptide 28.8 pg/mL (5.0-100.0) 01/28/18 12:30 Total Protein 7.1 gm/dL (6.0-8.3) 01/28/18 12:30 Albumin 3.7 gm/dL (4.2-5.5) L 01/28/18 12:30 Globulin 3.4 gm/dL 01/28/18 12:30 Albumin/Globulin Ratio 1.1 (1.0-1.8) 01/28/18 12:30 Triglycerides 131 mg/dL (<150) 01/28/18 12:30 Cholesterol 125 mg/dL (<200) 01/28/18 12:30 LDL Cholesterol Direct 66 mg/dL (75-193) L 01/28/18 12:30 HDL Cholesterol 46 mg/dL (23-92) 01/28/18 12:30 Amylase 35 U/L (29-103) 01/28/18 12:30 Lipase 11 U/L (11-82) 01/28/18 12:30 Urine Source CLEAN C 01/28/18 15:22 Urine Color YELLOW 01/28/18 15:22 Urine Clarity CLEAR (CLEAR) 01/28/18 15:22 Urine pH 7.0 (4.6 - 8.0) 01/28/18 15:22 Ur Specific [place] 1.010 (1.005-1.030) 01/28/18 15:22 Urine Protein NEGATIVE mg/dL (NEGATIVE) 01/28/18 15:22 Urine Glucose (UA) NEGATIVE mg/dL (NEGATIVE) 01/28/18 15:22 Urine Ketones NEGATIVE mg/dL (NEGATIVE) 01/28/18 15:22 Urine Blood NEGATIVE (NEGATIVE) 01/28/18 15:22 Urine Nitrate NEGATIVE (NEGATIVE) 01/28/18 15:22 Urine Bilirubin NEGATIVE (NEGATIVE) 01/28/18 15:22 Urine Urobilinogen 1.0 E.U./dL (0.2 - 1.0) 01/28/18 15:22 Ur Leukocyte Esterase NEGATIVE (NEGATIVE) 01/28/18 15:22 Urine RBC NONE SEEN /hpf (0-5) 01/28/18 15:22 Urine WBC NONE SEEN /hpf (0-5) 01/28/18 15:22 Ur Epithelial Cells NONE SEEN /lpf (FEW) 01/28/18 15:22 Urine Bacteria NONE SEEN /hpf (NONE SEEN) 01/28/18 15:22 - Physical Exam Vitals and I&O: Vital Signs Temp 98.8 F 01/31/18 16:42 Pulse 64 01/31/18 16:42 Resp 20 01/31/18 16:42 BP 167/84 01/31/18 16:42 Pulse Ox 96 01/31/18 16:42 General: weak, alert HEENT: NC/AT, PERRLA Neck: Supple Lungs: CTAB Cardiovascular: RRR, Normal S1, Normal S2, without murmur Abdomen: non-tender, positive bowel sound Extremities: excoriation Neurological: alert - Procedures Procedures: Procedures Procedure Code Date COLONOSCOPY W/LESION REMOVAL 57216 09/17/17 EXCISION OF ASCENDING COLON, ENDO, DIAGN [id number] 09/17/17 EXCISION OF RECTUM, ENDO [id number] 09/17/17 EXCISION OF TRANSVERSE COLON, ENDO [id number] 09/17/17 EXCISION OF TRANSVERSE COLON, ENDO, DIAGN [id number] 09/17/17 GROUP PSYCHOTHERAPY 47755 12/06/15 GROUP PSYCHOTHERAPY GZHZZZZ 12/06/15 OTHER GROUP THERAPY 94.44 06/02/14 RECREATIONAL THERAPY 93.81 07/28/11 Internal Medicine Assmt/Plan - Assessment Assessment: - Assessment Assessment: mild protein calorie malnutrition generalized weakness DJD hypercholesteremia schizoaffective disorder parkinson's - Plan Plan: fall precaution cont on sinemet dw rn - Plan Plan: see orders Nutritional Asmnt/Malnutr-PDOC - Dietary Evaluation Malnutrition Findings (Please click <Entered> for more info): Nutritional Asmnt/Malnutrition Start: 01/29/18 15: 57 Text: Status: Complete Freq: Document 01/29/18 15:57 LCHENG (Rec: 01/29/18 16:19 LCHENG [id number]) Nutritional Asmnt/Malnutrition Patient General Information Nutritional Screening Moderate Risk Diagnosis abd pain Pertinent Medical Hx/Surgical Hx CVA, DJD, hypercholesterolemia , schizoaffective disorder, parkinson's high ammonia level , [employer] shunt, craniotomy Subjective Information Consult received for skin integrity. Jani score 14. pt seen sleeping in bed at time of visit. Per MD note 01/29, pt was doing well with full liquid diet, no complain of abdominal pain at this time. Adm wt 225lb noted. but pt appeared thin. Current Diet Order/ Nutrition Support full liquid Pertinent Medications D5-0.45ns, olace, seroquel, protonix Pertinent Labs 01/29 Na 126, K 3.6, Cl 96, BUN 6, Cr 0.6, glucose 119, Ammonia 234 Nutritional Hx/Data Height 1.83 m Height (Calculated Centimeters) 182.9 Current Weight (lbs) 57.606 kg Weight (Calculated Kilograms) 57.6 Weight (Calculated Grams) 09332.2 [place] Body Weight 178 Body Mass Index (BMI) 17.2 Weight Status Underweight GI Symptoms GI Symptoms None Last BM 0 Difficult in: None Skin Integrity/Comment: rash to scrotum, scar to left lateral malleolis Estimated Nutritional Goals BEE in Kcals: Using Current wt Calories/Kcals/Kg 30-35 Kcals Calculated 4595-0257 Protein: Using Current wt Protein g/k-1.2 Protein Calculated 58-70 Fluid: ml 0-2029ml (1ml/kcal) Nutritional Problem 1. Problem Problem altered GI function Etiology possible GI dysfunction Signs/Symptoms: abdominal pain over the past few days and pt now on full liquid Intervention/Recommendation Comments 1. Advance diet as tolerated. 2. Monitor PO intake, wt, labs and skin integrity 3. F/U as high risk in 2-3 days, 01/31-02/01 Expected Outcomes/Goals Expected Outcomes/Goals 1. PO intake to meet at least 75% of nutritional needs. 2. Wt stability, GI function to improve,. skin to remain intact, labs to approach WNL.
== END 2018-01-31 17:50 | DRG 640 ==
LOC: ER 11:58 → MSI 14:18
PROVIDERS: ADMIT Internal Medicine; ATTEND Internal Medicine
DX: E87.1 Hypo-osmolality and hyponatremia (principal); K72.00 Acute and subacute hepatic failure without coma; E44.1 Mild protein-calorie malnutrition; G20 Parkinson's disease; E86.0 Dehydration; I11.9 Hypertensive heart disease without heart failure; J44.9 Chronic obstructive pulmonary disease, unspecified; F03.90 Unspecified dementia, unspecified severity, without behavioral disturbance, psychotic disturbance, mood disturbance, and anxiety; K52.9 Noninfective gastroenteritis and colitis, unspecified; M19.90 Unspecified osteoarthritis, unspecified site; E78.5 Hyperlipidemia, unspecified; F25.9 Schizoaffective disorder, unspecified; E78.00 Pure hypercholesterolemia, unspecified; Z86.73 Personal history of transient ischemic attack (TIA), and cerebral infarction without residual deficits; Z88.0 Allergy status to penicillin; Z71.89 Other specified counseling; Z79.899 Other long term (current) drug therapy; Z68.30 Body mass index [BMI] 30.0-30.9, adult
CPT/HCPCS: 36415-UA; 71045-TC; 80048-TC; 80053-TC; 80061-TC; 81001-TC; 82140-TC; 82150-TC; 82550-TC; 83690-TC; 83880-TC; 84484-TC; 85025-TC; 85610-TC; 93005; 94760; 96374; C9113; J1644; J2405; J7030; Z7610

== ENCOUNTER 2018-01-31 17:52 | Inpatient (IN) | payer MEDICARE, MEDICAID ==
[2018-01-31] MEDS ORDERED: Maalox 30 mL Cup PO PRN (20:00)
[2018-01-31] MEDS ORDERED: Albuterol Nebulizer 2.5mg/3mL HHN PRN (20:00)
[2018-01-31] MEDS ORDERED: guaiFENesin 200 MG/10 ML UDC PO PRN (20:00)
[2018-01-31] MEDS ORDERED: Ipratropium Neb 0.5 mg/2.5 mL UD HHN PRN (20:00)
[2018-01-31 20:20] VITALS: BP 132/75
[2018-01-31] MEDS ORDERED: Magnesium Hydroxide (MOM) 30 mL UDC PO PRN (20:21)
[2018-01-31] MEDS: Atorvastatin Calcium 10 MG TAB PO SCH (21:30)
--- NOTE | 2018-02-01 05:35 | Psychosocial Evaluation ---
DATE OF SERVICE: 01/31/2018 IDENTIFYING DATA: The patient is a 67-year-old male, resident of a [facility]. Information obtained directly interviewing the patient as well as reviewing the admission papers disposition hospitalization. The patient is admitted here on a voluntary basis after he was medically cleared on the med/surg unit for his inappropriate and sexualized behavior towards the female staff. CHIEF COMPLAINT: "I don't know what is happening in here." HISTORY OF PRESENT ILLNESS: This is one of multiple psychiatric hospitalizations for this patient who has been diagnosed to have schizoaffective disorder and has been under my care in December of last year. The patient is being followed up by Dr. Mabry on an outpatient basis. The patient has been seen by Dr. Mabry for a consultation and the patient has been started on the Seroquel and Paxil. At the time of evaluation, the patient has been getting easily irritable, angry and has been moaning and groaning. Sleep and appetite prior to the hospitalization are reported to be poor. The patient is not giving any details about the inappropriate behavior. The patient has a tendency to scream and yell and gets easily upset. PAST PSYCHIATRIC HISTORY: Please refer to the above. MEDICAL HISTORY AND PHYSICAL EXAMINATION: Requested by Dr. Harden and is noted to be significant for hypertension, seizure disorder, history of CVA and in the past, the patient has a history of cirrhosis of the liver. SOCIAL HISTORY: The patient is a resident of the [facility] and needs total care. SUBSTANCE ABUSE HISTORY: None. PHYSICAL OR SEXUAL ABUSE HISTORY: None. LEGAL PROBLEMS: None at this time. STRENGTH AND ASSETS: The patient seems to be motivated. MENTAL STATUS EXAMINATION: The patient is a 67-year-old moderately obese, superficially cooperative. The patient is screaming and yelling. Insight and judgment at this time are noted to be impaired. Impulse control is noted to be limited. The patient is reported to have been sexually preoccupied and has been trying to touch the female staff inappropriately. The patient is not making much sense. The patient's impulse control is noted to be poor. The patient is alert and awake that he is in the hospital. Short and long-term are noted to be poor. The patient has been getting frustrate giving the information. The patient has paranoid delusions, but denies any command hallucinations. The patient's behavior is equally danger to others at this time. DIAGNOSTIC IMPRESSION: AXIS I: Schizoaffective disorder, psychotic at this time. AXIS II: None. AXIS III: As per Dr. Harden. IMMEDIATE TREATMENT PLAN: The patient is going to be continued on the Seroquel and BuSpar and the patient is going to be closely monitored. Once stabilized, the patient is going to be discharged to the [facility] for further followup. ESTIMATED LENGTH OF STAY: 5-7 days. DISCHARGE CRITERIA: When he no longer a threat to self or others and be able to cope up with the stress. JOB# [id number]
[2018-02-01] MEDS: Pantoprazole 40 mg EC Tab PO SCH (06:51)
[2018-02-01] MEDS: Multivitamin Tab PO SCH (09:20)
[2018-02-01] MEDS: Fenofibrate, Micronized 134 mg Cap PO SCH (09:22)
[2018-02-01] MEDS: Aspirin 81mg Chewable Tab PO SCH (09:22)
[2018-02-01] MEDS: Benztropine 1 MG TAB PO SCH ×2 (09:29→17:51)
--- NOTE | 2018-02-01 13:51 | Internal Medicine Prog Note ---
Internal Medicine Subjective - Subjective Service Date: 02/01/18 Patient seen and examined:: with staff Patient is:: awake, verbal Per staff patient has:: tolerating meds Internal Medicine Objective - Physical Exam Vitals and I&O: Vital Signs Temp 97.6 F 02/01/18 06:58 Pulse 59 02/01/18 09:20 Resp 20 02/01/18 08:51 BP 129/63 02/01/18 09:20 Pulse Ox 93 02/01/18 08:51 Intake & Output 01/31/18 02/01/18 02/01/18 18:59 06:59 18:59 Intake Total 360 Balance 360 Intake: Oral 360 Other: # Voids 2 Weight Source Bedscale Active Medications: Current Medications Acetaminophen (Tylenol) 650 mg PO Q4HR PRN PRN Reason: Pain Or Fever above 101 Stop: 04/01/18 19:59 Al Hydrox/Mg Hydrox/Simethicone (Maalox) 30 ml PO Q6HR PRN PRN Reason: Dyspepsia Stop: 04/01/18 19:59 Albuterol Sulfate (Albuterol 2.5mg/3ml Neb Ud) 2.5 mg HHN Q2HR PRN PRN Reason: Shortness of Breath or Wheeze Stop: 04/01/18 19:59 Aspirin (Aspirin Chewable) 81 mg PO DAILY [facility] Stop: 04/02/18 08:59 Last Admin: 02/01/18 09:22 Dose: 81 mg Atorvastatin Calcium (Lipitor) 20 mg PO HS DARA PRN Reason: Protocol Stop: 04/01/18 20:59 Last Admin: 01/31/18 21:30 Dose: 20 mg Benztropine Mesylate (Cogentin) 1 mg PO BID DARA Stop: 04/02/18 08:59 Last Admin: 02/01/18 09:29 Dose: 1 mg Buspirone HCl (Buspar) 10 mg PO BID DARA PRN Reason: Protocol Stop: 04/02/18 08:59 Carbamazepine (Tegretol) 600 mg PO Q12HR DARA PRN Reason: Protocol Stop: 04/02/18 20:59 Carbidopa/Levodopa (Sinemet 25mg-100 Mg) 1 tab PO TID DARA Stop: 04/01/18 20:59 Last Admin: 02/01/18 09:20 Dose: 1 tab Divalproex Sodium (Depakote Dr) 1,000 mg PO BID DARA PRN Reason: Protocol Stop: 04/02/18 16:59 Divalproex Sodium (Depakote Dr) 500 mg PO HS DARA PRN Reason: Protocol Stop: 04/02/18 20:59 Docusate Sodium (Colace) 100 mg PO DAILY DARA Stop: 04/02/18 08:59 Last Admin: 02/01/18 09:20 Dose: 100 mg Fenofibrate (Tricor) 134 mg PO DAILY DARA Stop: 04/02/18 08:59 Last Admin: 02/01/18 09:22 Dose: 134 mg Guaifenesin (Robitussin) 100 mg PO Q4H PRN PRN Reason: Cough or Congestion Stop: 04/01/18 19:59 Heparin Sodium (Porcine) (Heparin) 5,000 units SUBQ Q12HR DARA Stop: 04/01/18 20:59 Last Admin: 02/01/18 09:30 Dose: 5,000 units Ipratropium [place] (Atrovent Neb 0.5mg/2.5ml) 0.5 mg HHN Q2HR PRN PRN Reason: Shortness of Breath or Wheeze Stop: 04/01/18 19:59 Lactulose (Cephulac) 30 gm PO QID DARA Stop: 04/02/18 12:59 Lorazepam (Ativan) 0.5 mg PO Q4HR PRN; Protocol PRN Reason: Anxiety Stop: 04/01/18 19:40 Losartan Potassium (Cozaar) 100 mg PO DAILY DARA Stop: 04/02/18 08:59 Last Admin: 02/01/18 09:20 Dose: 100 mg Magnesium Hydroxide (Milk Of Magnesia) 30 ml PO HS PRN PRN Reason: Constipation Multivitamins/Vitamin C (Theragran) 1 tab PO DAILY DARA Stop: 04/02/18 08:59 Last Admin: 02/01/18 09:20 Dose: 1 tab Oxybutynin Chloride (Ditropan) 5 mg PO HS DARA Stop: 04/01/18 20:59 Last Admin: 01/31/18 21:30 Dose: 5 mg Pantoprazole Sodium (Protonix) 40 mg PO QDAC DARA Stop: 04/02/18 07:29 Last Admin: 02/01/18 06:51 Dose: 40 mg Pantoprazole Sodium (Protonix) 40 mg PO DAILY [facility] Stop: 04/03/18 08:59 Paroxetine HCl (Paxil) 10 mg PO DAILY DARA PRN Reason: Protocol Stop: 04/02/18 08:59 Quetiapine Fumarate (Seroquel) 50 mg PO BID DARA PRN Reason: Protocol Stop: 04/02/18 08:59 Sodium Chloride (Nacl Tab) 1 gm PO BID DARA Stop: 04/02/18 08:59 Last Admin: 02/01/18 09:19 Dose: 1 gm Zolpidem Tartrate (Ambien) 5 mg PO HS PRN PRN Reason: Insomnia Stop: 04/01/18 19:58 General: alert HEENT: NC/AT, PERRLA Neck: Supple Lungs: CTAB Cardiovascular: RRR, Normal S1, Normal S2, without murmur Abdomen: soft, non-tender, non-distended, positive bowel sound Neurological: alert - Procedures Procedures: Procedures Procedure Code Date COLONOSCOPY W/LESION REMOVAL 18358 09/17/17 EXCISION OF ASCENDING COLON, ENDO, DIAGN [id number] 09/17/17 EXCISION OF RECTUM, ENDO [id number] 09/17/17 EXCISION OF TRANSVERSE COLON, ENDO [id number] 09/17/17 EXCISION OF TRANSVERSE COLON, ENDO, DIAGN [id number] 09/17/17 GROUP PSYCHOTHERAPY 29747 12/06/15 GROUP PSYCHOTHERAPY [id number] 12/06/15 OTHER GROUP THERAPY 94.44 06/02/14 RECREATIONAL THERAPY 93.81 07/28/11 Internal Medicine Assmt/Plan - Assessment Assessment: mild protein calorie malnutrition generalized weakness DJD hypercholesteremia schizoaffective disorder parkinson's - Plan Plan: fall precaution cont on sinemet dw rn
[2018-02-01] MEDS: Lactulose 10 Gm/15 mL 30mL UDC PO SCH ×3 (17:24→21:23)
[2018-02-01] MEDS: Atorvastatin Calcium 10 MG TAB PO SCH (21:23)
[2018-02-02] MEDS: Pantoprazole 40 mg EC Tab PO SCH (07:55)
[2018-02-02] MEDS: Benztropine 1 MG TAB PO SCH ×2 (08:26→17:07)
[2018-02-02] MEDS: Lactulose 10 Gm/15 mL 30mL UDC PO SCH ×4 (08:26→21:26)
[2018-02-02] MEDS: Multivitamin Tab PO SCH (08:26)
[2018-02-02] MEDS: Fenofibrate, Micronized 134 mg Cap PO SCH (08:27)
[2018-02-02] MEDS: Aspirin 81mg Chewable Tab PO SCH (08:27)
--- NOTE | 2018-02-02 08:50 | Progress Notes ---
DATE: 02/01/2018 PSYCHIATRIC PROGRESS NOTE TIME PATIENT SEEN: Staff was spoken to. The patient is interviewed. Mood is noted to be irritable. Affect is constricted. Insight and judgment at this time are noted to be still impaired. Impulse control seems to be poor. Coping skills are also noted to be very poor. The patient has been screaming and yelling at the top of his lungs. The patient is currently on 50 mg of the Seroquel and 10 mg of the Paxil in the morning. The patient has no insight into his illness. The patient, in view of his impulsivity, has been placed on 500 mg of the Depakote at nighttime and 1000 mg twice a day. Even with these medications, the patient has been having difficult time. Coping skills at this time are noted to be very poor. Insight and judgment are also noted to be very much impaired. The patient is noted to be sexually inappropriate with the staff. ASSESSMENT: The patient is still having acute mood swings. PLAN: To continue the patient with supportive therapy. Encouraged the patient to verbalize the concerns rather than to act out. Please note that the patient is not ready to be discharged to a lower level of care. JOB# [id number]
[2018-02-02] MEDS ORDERED: Pantoprazole 40 mg EC Tab PO SCH (09:00)
--- NOTE | 2018-02-02 17:37 | Progress Notes ---
DATE: 02/02/2018 PSYCHIATRIC PROGRESS NOTE SUBJECTIVE: Staff was spoken to. The patient is interviewed. Mood is noted to be irritable. Affect is constricted. Coping skills are noted to be very poor. The patient is screaming and yelling. The patient could not be contained at a lower level of care and hence has been transferred here with multiple medications. The patient is still testing the limits, screaming and yelling. The patient's impulse control seems to be extremely poor. Insight and judgment are also noted to be poor. ASSESSMENT: The patient is still psychotic and impulsive. PLAN: To continue the patient with the supportive therapy and current medications. The patient is currently on the buspirone 10 mg twice a day, Tegretol 600 mg twice a day and the valproic acid 1500 mg per day and patient is also on Seroquel 50 mg twice a day. Even with all the medication. It has been becoming difficult for the patient to comply with the treatment. Plan to continue the patient with the supportive therapy, encouraged the patient to verbalize the concerns rather than to act out. JOB# [id number]
[2018-02-02] MEDS: Atorvastatin Calcium 10 MG TAB PO SCH (21:24)
[2018-02-03] MEDS: Pantoprazole 40 mg EC Tab PO SCH (06:30)
[2018-02-03] MEDS: Benztropine 1 MG TAB PO SCH ×2 (08:54→17:20)
[2018-02-03] MEDS: Aspirin 81mg Chewable Tab PO SCH (08:54)
[2018-02-03] MEDS: Fenofibrate, Micronized 134 mg Cap PO SCH (09:02)
[2018-02-03] MEDS: Multivitamin Tab PO SCH (09:02)
[2018-02-03] MEDS: Lactulose 10 Gm/15 mL 30mL UDC PO SCH ×4 (09:02→21:47)
--- NOTE | 2018-02-03 15:47 | Progress Notes ---
DATE: 02/03/2018 PSYCHIATRIC PROGRESS NOTE SUBJECTIVE: Staff was spoken to. The patient is interviewed. Mood is noted to be irritable. Affect is constricted. The patient continues to be screaming and yelling. The patient is currently on heavy dose of medications, Tegretol as well as the Depakote and Tegretol and Depakote level has been requested for tomorrow. The patient's coping skills are still poor. PLAN: The patient is still uncontrollable, hence he is not ready to be discharged to a lower level of care. The patient is going to be closely monitored and followed up. JOB# [id number]
--- NOTE | 2018-02-03 21:34 | Internal Medicine Prog Note ---
Internal Medicine Subjective - Subjective Patient seen and examined:: with staff, chart reviewed, other (pt seen on , note was missed) Patient is:: awake, verbal Per staff patient has:: no adverse event, eating well, agitated, tolerating meds Internal Medicine Objective - Results Recent Labs: Laboratory Last Values Valproic Acid 52.8 ug/mL (50.0-100.0) 02/03/18 14:30 Carbamazepine 10.8 ug/ml (4.0-12.0) 02/03/18 14:30 - Physical Exam Vitals and I&O: Vital Signs Temp 97.0 F 02/03/18 20:48 Pulse 74 02/03/18 20:54 Resp 20 02/03/18 20:54 BP 99/50 02/03/18 20:48 Pulse Ox 92 02/03/18 20:54 Intake & Output 02/03/18 02/03/18 02/04/18 06:59 18:59 06:59 Intake Total 240 1000 240 Output Total 1 Balance 240 1000 239 Intake: Oral 240 1000 240 Output: Stool 1 Other: # Voids 1 5 2 # Bowel Movements 1 1 Active Medications: Current Medications Acetaminophen (Tylenol) 650 mg PO Q4HR PRN PRN Reason: Pain Or Fever above 101 Stop: 04/01/18 19:59 Al Hydrox/Mg Hydrox/Simethicone (Maalox) 30 ml PO Q6HR PRN PRN Reason: Dyspepsia Stop: 04/01/18 19:59 Albuterol Sulfate (Albuterol 2.5mg/3ml Neb Ud) 2.5 mg HHN Q2HR PRN PRN Reason: Shortness of Breath or Wheeze Stop: 04/01/18 19:59 Aspirin (Aspirin Chewable) 81 mg PO DAILY [facility] Stop: 04/02/18 08:59 Last Admin: 02/03/18 08:54 Dose: 81 mg Atorvastatin Calcium (Lipitor) 20 mg PO HS [facility] PRN Reason: Protocol Stop: 04/01/18 20:59 Last Admin: 02/02/18 21:24 Dose: 20 mg Benztropine Mesylate (Cogentin) 1 mg PO BID [facility] Stop: 04/02/18 08:59 Last Admin: 02/03/18 17:20 Dose: 1 mg Buspirone HCl (Buspar) 10 mg PO BID [facility] PRN Reason: Protocol Stop: 04/02/18 08:59 Last Admin: 02/03/18 17:19 Dose: 10 mg Carbamazepine (Tegretol) 600 mg PO Q12HR [facility] PRN Reason: Protocol Stop: 04/02/18 20:59 Last Admin: 02/03/18 08:53 Dose: 600 mg Carbidopa/Levodopa (Sinemet 25mg-100 Mg) 1 tab PO TID [facility] Stop: 04/01/18 20:59 Last Admin: 02/03/18 13:05 Dose: 1 tab Divalproex Sodium (Depakote Dr) 1,000 mg PO BID [facility] PRN Reason: Protocol Stop: 04/02/18 16:59 Last Admin: 02/03/18 17:20 Dose: 1,000 mg Divalproex Sodium (Depakote Dr) 500 mg PO HS [facility] PRN Reason: Protocol Stop: 04/02/18 20:59 Last Admin: 02/02/18 21:25 Dose: 500 mg Docusate Sodium (Colace) 100 mg PO DAILY [facility] Stop: 04/02/18 08:59 Last Admin: 02/03/18 08:54 Dose: 100 mg Fenofibrate (Tricor) 134 mg PO DAILY [facility] Stop: 04/02/18 08:59 Last Admin: 02/03/18 09:02 Dose: 134 mg Guaifenesin (Robitussin) 100 mg PO Q4H PRN PRN Reason: Cough or Congestion Stop: 04/01/18 19:59 Last Admin: 02/02/18 22:31 Dose: 100 mg Heparin Sodium (Porcine) (Heparin) 5,000 units SUBQ Q12HR [facility] Stop: 04/01/18 20:59 Last Admin: 02/03/18 08:55 Dose: 5,000 units Ipratropium [place] (Atrovent Neb 0.5mg/2.5ml) 0.5 mg HHN Q2HR PRN PRN Reason: Shortness of Breath or Wheeze Stop: 04/01/18 19:59 Lactulose (Cephulac) 30 gm PO QID [facility] Stop: 04/02/18 12:59 Last Admin: 02/03/18 17:19 Dose: 30 gm Lorazepam (Ativan) 0.5 mg PO Q4HR PRN; Protocol PRN Reason: Anxiety Stop: 04/01/18 19:40 Losartan Potassium (Cozaar) 100 mg PO DAILY [facility] Stop: 04/02/18 08:59 Last Admin: 02/03/18 09:03 Dose: 100 mg Magnesium Hydroxide (Milk Of Magnesia) 30 ml PO HS PRN PRN Reason: Constipation Multivitamins/Vitamin C (Theragran) 1 tab PO DAILY [facility] Stop: 04/02/18 08:59 Last Admin: 02/03/18 09:02 Dose: 1 tab Oxybutynin Chloride (Ditropan) 5 mg PO HS [facility] Stop: 04/01/18 20:59 Last Admin: 02/02/18 21:25 Dose: 5 mg Pantoprazole Sodium (Protonix) 40 mg PO QDAC [facility] Stop: 04/02/18 07:29 Last Admin: 02/03/18 06:30 Dose: 40 mg Quetiapine Fumarate (Seroquel) 50 mg PO BID [facility] PRN Reason: Protocol Stop: 04/02/18 08:59 Last Admin: 02/03/18 17:20 Dose: 50 mg Sodium Chloride (Nacl Tab) 1 gm PO BID [facility] Stop: 04/02/18 08:59 Last Admin: 02/03/18 17:20 Dose: 1 gm Zolpidem Tartrate (Ambien) 5 mg PO HS PRN PRN Reason: Insomnia Stop: 04/01/18 19:58 Last Admin: 02/02/18 21:25 Dose: 5 mg General: alert HEENT: NC/AT, PERRLA Neck: Supple Lungs: CTAB Cardiovascular: RRR, Normal S1, Normal S2, without murmur Abdomen: soft, non-tender, non-distended, positive bowel sound Neurological: alert, bedbound - Procedures Procedures: Procedures Procedure Code Date COLONOSCOPY W/LESION REMOVAL 92697 09/17/17 EXCISION OF ASCENDING COLON, ENDO, DIAGN [id number] 09/17/17 EXCISION OF RECTUM, ENDO [id number] 09/17/17 EXCISION OF TRANSVERSE COLON, ENDO [id number] 09/17/17 EXCISION OF TRANSVERSE COLON, ENDO, DIAGN [id number] 09/17/17 GROUP PSYCHOTHERAPY 46338 12/06/15 GROUP PSYCHOTHERAPY GZHZZZZ 12/06/15 OTHER GROUP THERAPY 94.44 06/02/14 RECREATIONAL THERAPY 93.81 07/28/11 Internal Medicine Assmt/Plan - Assessment Assessment: - Assessment Assessment: mild protein calorie malnutrition generalized weakness DJD hypercholesteremia schizoaffective disorder parkinson's - Plan Plan: fall precaution cont on sinemet dw rn - Plan Plan: see order
--- NOTE | 2018-02-03 21:35 | Internal Medicine Prog Note ---
Internal Medicine Subjective - Subjective Patient seen and examined:: with staff, chart reviewed, other (pt seen today 02-03) Patient is:: awake, verbal Per staff patient has:: no adverse event, eating well, agitated, tolerating meds Internal Medicine Objective - Results Recent Labs: Laboratory Last Values Valproic Acid 52.8 ug/mL (50.0-100.0) 02/03/18 14:30 Carbamazepine 10.8 ug/ml (4.0-12.0) 02/03/18 14:30 - Physical Exam Vitals and I&O: Vital Signs Temp 97.0 F 02/03/18 20:48 Pulse 74 02/03/18 20:54 Resp 20 02/03/18 20:54 BP 99/50 02/03/18 20:48 Pulse Ox 92 02/03/18 20:54 Intake & Output 02/03/18 02/03/18 02/04/18 06:59 18:59 06:59 Intake Total 240 1000 240 Output Total 1 Balance 240 1000 239 Intake: Oral 240 1000 240 Output: Stool 1 Other: # Voids 1 5 2 # Bowel Movements 1 1 Active Medications: Current Medications Acetaminophen (Tylenol) 650 mg PO Q4HR PRN PRN Reason: Pain Or Fever above 101 Stop: 04/01/18 19:59 Al Hydrox/Mg Hydrox/Simethicone (Maalox) 30 ml PO Q6HR PRN PRN Reason: Dyspepsia Stop: 04/01/18 19:59 Albuterol Sulfate (Albuterol 2.5mg/3ml Neb Ud) 2.5 mg HHN Q2HR PRN PRN Reason: Shortness of Breath or Wheeze Stop: 04/01/18 19:59 Aspirin (Aspirin Chewable) 81 mg PO DAILY [facility] Stop: 04/02/18 08:59 Last Admin: 02/03/18 08:54 Dose: 81 mg Atorvastatin Calcium (Lipitor) 20 mg PO [facility] PRN Reason: Protocol Stop: 04/01/18 20:59 Last Admin: 02/02/18 21:24 Dose: 20 mg Benztropine Mesylate (Cogentin) 1 mg PO BID [facility] Stop: 04/02/18 08:59 Last Admin: 02/03/18 17:20 Dose: 1 mg Buspirone HCl (Buspar) 10 mg PO BID [facility] PRN Reason: Protocol Stop: 04/02/18 08:59 Last Admin: 02/03/18 17:19 Dose: 10 mg Carbamazepine (Tegretol) 600 mg PO Q12HR [facility] PRN Reason: Protocol Stop: 04/02/18 20:59 Last Admin: 02/03/18 08:53 Dose: 600 mg Carbidopa/Levodopa (Sinemet 25mg-100 Mg) 1 tab PO TID [facility] Stop: 04/01/18 20:59 Last Admin: 02/03/18 13:05 Dose: 1 tab Divalproex Sodium (Depakote Dr) 1,000 mg PO BID [facility] PRN Reason: Protocol Stop: 04/02/18 16:59 Last Admin: 02/03/18 17:20 Dose: 1,000 mg Divalproex Sodium (Depakote Dr) 500 mg PO HS [facility] PRN Reason: Protocol Stop: 04/02/18 20:59 Last Admin: 02/02/18 21:25 Dose: 500 mg Docusate Sodium (Colace) 100 mg PO DAILY [facility] Stop: 04/02/18 08:59 Last Admin: 02/03/18 08:54 Dose: 100 mg Fenofibrate (Tricor) 134 mg PO DAILY [facility] Stop: 04/02/18 08:59 Last Admin: 02/03/18 09:02 Dose: 134 mg Guaifenesin (Robitussin) 100 mg PO Q4H PRN PRN Reason: Cough or Congestion Stop: 04/01/18 19:59 Last Admin: 02/02/18 22:31 Dose: 100 mg Heparin Sodium (Porcine) (Heparin) 5,000 units SUBQ Q12HR [facility] Stop: 04/01/18 20:59 Last Admin: 02/03/18 08:55 Dose: 5,000 units Ipratropium [place] (Atrovent Neb 0.5mg/2.5ml) 0.5 mg HHN Q2HR PRN PRN Reason: Shortness of Breath or Wheeze Stop: 04/01/18 19:59 Lactulose (Cephulac) 30 gm PO QID [facility] Stop: 04/02/18 12:59 Last Admin: 02/03/18 17:19 Dose: 30 gm Lorazepam (Ativan) 0.5 mg PO Q4HR PRN; Protocol PRN Reason: Anxiety Stop: 04/01/18 19:40 Losartan Potassium (Cozaar) 100 mg PO DAILY [facility] Stop: 04/02/18 08:59 Last Admin: 02/03/18 09:03 Dose: 100 mg Magnesium Hydroxide (Milk Of Magnesia) 30 ml PO HS PRN PRN Reason: Constipation Multivitamins/Vitamin C (Theragran) 1 tab PO DAILY [facility] Stop: 04/02/18 08:59 Last Admin: 02/03/18 09:02 Dose: 1 tab Oxybutynin Chloride (Ditropan) 5 mg PO HS [facility] Stop: 04/01/18 20:59 Last Admin: 02/02/18 21:25 Dose: 5 mg Pantoprazole Sodium (Protonix) 40 mg PO QDAC [facility] Stop: 04/02/18 07:29 Last Admin: 02/03/18 06:30 Dose: 40 mg Quetiapine Fumarate (Seroquel) 50 mg PO BID [facility] PRN Reason: Protocol Stop: 04/02/18 08:59 Last Admin: 02/03/18 17:20 Dose: 50 mg Sodium Chloride (Nacl Tab) 1 gm PO BID [facility] Stop: 04/02/18 08:59 Last Admin: 02/03/18 17:20 Dose: 1 gm Zolpidem Tartrate (Ambien) 5 mg PO HS PRN PRN Reason: Insomnia Stop: 04/01/18 19:58 Last Admin: 02/02/18 21:25 Dose: 5 mg General: alert HEENT: NC/AT, PERRLA Neck: Supple Lungs: CTAB Cardiovascular: RRR, Normal S1, Normal S2, without murmur Abdomen: soft, non-tender, non-distended, positive bowel sound Neurological: alert, bedbound - Procedures Procedures: Procedures Procedure Code Date COLONOSCOPY W/LESION REMOVAL 52183 09/17/17 EXCISION OF ASCENDING COLON, ENDO, DIAGN [id number] 09/17/17 EXCISION OF RECTUM, ENDO [id number] 09/17/17 EXCISION OF TRANSVERSE COLON, ENDO [id number] 09/17/17 EXCISION OF TRANSVERSE COLON, ENDO, DIAGN [id number] 09/17/17 GROUP PSYCHOTHERAPY 62174 12/06/15 GROUP PSYCHOTHERAPY GZHZZZZ 12/06/15 OTHER GROUP THERAPY 94.44 06/02/14 RECREATIONAL THERAPY 93.81 07/28/11 Internal Medicine Assmt/Plan - Assessment Assessment: - Assessment Assessment: mild protein calorie malnutrition generalized weakness DJD hypercholesteremia schizoaffective disorder parkinson's - Plan Plan: - Plan Plan: fall precaution cont on sinemet usha rn see order
[2018-02-03] MEDS: Atorvastatin Calcium 10 MG TAB PO SCH (21:43)
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
[2018-02-04] MEDS: Pantoprazole 40 mg EC Tab PO SCH (06:35)
[2018-02-04] MEDS: Lactulose 10 Gm/15 mL 30mL UDC PO SCH ×4 (09:47→21:26)
[2018-02-04] MEDS: Benztropine 1 MG TAB PO SCH ×2 (09:53→17:00)
[2018-02-04] MEDS: Multivitamin Tab PO SCH (09:54)
[2018-02-04] MEDS: Aspirin 81mg Chewable Tab PO SCH (09:54)
[2018-02-04] MEDS: Fenofibrate, Micronized 134 mg Cap PO SCH (09:56)
--- NOTE | 2018-02-04 13:21 | Internal Medicine Prog Note ---
Internal Medicine Subjective - Subjective Service Date: 02/04/18 Patient is:: awake, verbal Per staff patient has:: no adverse event, eating well, agitated, tolerating meds Internal Medicine Objective - Results Recent Labs: Laboratory Last Values Valproic Acid 52.8 ug/mL (50.0-100.0) 02/03/18 14:30 Carbamazepine 10.8 ug/ml (4.0-12.0) 02/03/18 14:30 - Physical Exam Vitals and I&O: Vital Signs Temp 98.7 F 02/04/18 06:01 Pulse 66 02/04/18 08:06 Resp 18 02/04/18 06:01 BP 101/59 02/04/18 08:06 Pulse Ox 93 02/04/18 06:01 Intake & Output 02/03/18 02/04/18 02/04/18 18:59 06:59 18:59 Intake Total 1000 240 Output Total 1 Balance 1000 239 Intake: Oral 1000 240 Output: Stool 1 Other: # Voids 5 2 # Bowel Movements 1 1 Active Medications: Current Medications Acetaminophen (Tylenol) 650 mg PO Q4HR PRN PRN Reason: Pain Or Fever above 101 Stop: 04/01/18 19:59 Al Hydrox/Mg Hydrox/Simethicone (Maalox) 30 ml PO Q6HR PRN PRN Reason: Dyspepsia Stop: 04/01/18 19:59 Albuterol Sulfate (Albuterol 2.5mg/3ml Neb Ud) 2.5 mg HHN Q2HR PRN PRN Reason: Shortness of Breath or Wheeze Stop: 04/01/18 19:59 Aspirin (Aspirin Chewable) 81 mg PO DAILY [facility] [place] Stop: 04/02/18 08:59 Last Admin: 02/04/18 09:54 Dose: 81 mg Atorvastatin Calcium (Lipitor) 20 mg PO HS [facility]ARA PRN Reason: Protocol Stop: 04/01/18 20:59 Last Admin: 02/03/18 21:43 Dose: 20 mg Benztropine Mesylate (Cogentin) 1 mg PO BID [facility] [place] Stop: 04/02/18 08:59 Last Admin: 02/04/18 09:53 Dose: 1 mg Buspirone HCl (Buspar) 10 mg PO BID [facility] [place] PRN Reason: Protocol Stop: 04/02/18 08:59 Last Admin: 02/04/18 09:48 Dose: 10 mg Carbamazepine (Tegretol) 600 mg PO Q12HR [facility] PRN Reason: Protocol Stop: 04/02/18 20:59 Last Admin: 02/04/18 09:51 Dose: 600 mg Carbidopa/Levodopa (Sinemet 25mg-100 Mg) 1 tab PO TID [facility] Stop: 04/01/18 20:59 Last Admin: 02/04/18 09:53 Dose: 1 tab Divalproex Sodium (Depakote Dr) 1,000 mg PO BID [facility] PRN Reason: Protocol Stop: 04/02/18 16:59 Last Admin: 02/04/18 09:51 Dose: 1,000 mg Divalproex Sodium (Depakote Dr) 500 mg PO HS [facility]ARA PRN Reason: Protocol Stop: 04/02/18 20:59 Last Admin: 02/03/18 21:46 Dose: 500 mg Docusate Sodium (Colace) 100 mg PO DAILY [facility] [place] Stop: 04/02/18 08:59 Last Admin: 02/04/18 09:54 Dose: 100 mg Fenofibrate (Tricor) 134 mg PO DAILY [facility] [place] Stop: 04/02/18 08:59 Last Admin: 02/04/18 09:56 Dose: 134 mg Guaifenesin (Robitussin) 100 mg PO Q4H PRN PRN Reason: Cough or Congestion Stop: 04/01/18 19:59 Last Admin: 02/02/18 22:31 Dose: 100 mg Heparin Sodium (Porcine) (Heparin) 5,000 units SUBQ Q12HR [facility] [place] Stop: 04/01/18 20:59 Last Admin: 02/04/18 09:56 Dose: 5,000 units Ipratropium [place] (Atrovent Neb 0.5mg/2.5ml) 0.5 mg HHN Q2HR PRN PRN Reason: Shortness of Breath or Wheeze Stop: 04/01/18 19:59 Lactulose (Cephulac) 30 gm PO QID [facility] [place] Stop: 04/02/18 12:59 Last Admin: 02/04/18 09:47 Dose: 30 gm Lorazepam (Ativan) 0.5 mg PO Q4HR PRN; Protocol PRN Reason: Anxiety Stop: 04/01/18 19:40 Losartan Potassium (Cozaar) 100 mg PO DAILY [facility] [place] Stop: 04/02/18 08:59 Last Admin: 02/04/18 08:06 Dose: Not Given Magnesium Hydroxide (Milk Of Magnesia) 30 ml PO HS PRN PRN Reason: Constipation Multivitamins/Vitamin C (Theragran) 1 tab PO DAILY [facility] Stop: 04/02/18 08:59 Last Admin: 02/04/18 09:54 Dose: 1 tab Oxybutynin Chloride (Ditropan) 5 mg PO HS [facility] Stop: 04/01/18 20:59 Last Admin: 02/03/18 21:47 Dose: 5 mg Pantoprazole Sodium (Protonix) 40 mg PO QDAC [facility] Stop: 04/02/18 07:29 Last Admin: 02/04/18 06:35 Dose: 40 mg Quetiapine Fumarate (Seroquel) 50 mg PO BID [facility] PRN Reason: Protocol Stop: 04/02/18 08:59 Last Admin: 02/04/18 09:54 Dose: 50 mg Sodium Chloride (Nacl Tab) 1 gm PO BID [facility] Stop: 04/02/18 08:59 Last Admin: 02/04/18 09:54 Dose: 1 gm Zolpidem Tartrate (Ambien) 5 mg PO HS PRN PRN Reason: Insomnia Stop: 04/01/18 19:58 Last Admin: 02/02/18 21:25 Dose: 5 mg General: alert HEENT: NC/AT, PERRLA Neck: Supple Lungs: CTAB Cardiovascular: RRR, Normal S1, Normal S2, without murmur Abdomen: soft, non-tender, non-distended, positive bowel sound Neurological: alert, bedbound - Procedures Procedures: Procedures Procedure Code Date COLONOSCOPY W/LESION REMOVAL 66549 09/17/17 EXCISION OF ASCENDING COLON, ENDO, DIAGN [id number] 09/17/17 EXCISION OF RECTUM, ENDO [id number] 09/17/17 EXCISION OF TRANSVERSE COLON, ENDO [id number] 09/17/17 EXCISION OF TRANSVERSE COLON, ENDO, DIAGN [id number] 09/17/17 GROUP PSYCHOTHERAPY 72230 12/06/15 GROUP PSYCHOTHERAPY GZHZZZZ 12/06/15 OTHER GROUP THERAPY 94.44 06/02/14 RECREATIONAL THERAPY 93.81 07/28/11 Internal Medicine Assmt/Plan - Assessment Assessment: mild protein calorie malnutrition generalized weakness DJD hypercholesteremia schizoaffective disorder parkinson's - Plan Plan: fall precaution cont on sinemet usha rn
[2018-02-04] MEDS: Atorvastatin Calcium 10 MG TAB PO SCH (21:26)
--- NOTE | 2018-02-05 03:36 | Progress Notes ---
DATE: 02/04/2018 PSYCHIATRIC PROGRESS NOTE SUBJECTIVE: Staff was spoken to. The patient is interviewed. Mood is noted to be irritable. Affect is constricted. The patient's insight and judgment are noted to be still impaired. Impulse control is noted to be poor. The patient is noted to be very intrusive and needs to be redirected. Coping skills at this time are noted to be extremely poor. Sleep and appetite are also noted to be poor. ASSESSMENT: The patient is still impulsive. PLAN: To continue the patient with the Tegretol and Depakote and encouraged the patient to verbalize the concerns rather than to act out. JOB# [id number]
[2018-02-05] MEDS: Pantoprazole 40 mg EC Tab PO SCH (06:32)
[2018-02-05] MEDS: Multivitamin Tab PO SCH (09:32)
[2018-02-05] MEDS: Benztropine 1 MG TAB PO SCH ×2 (09:34→17:20)
[2018-02-05] MEDS: Aspirin 81mg Chewable Tab PO SCH (09:34)
[2018-02-05] MEDS: Fenofibrate, Micronized 134 mg Cap PO SCH (09:34)
[2018-02-05] MEDS: Lactulose 10 Gm/15 mL 30mL UDC PO SCH ×4 (09:35→20:45)
--- NOTE | 2018-02-05 12:29 | Internal Medicine Prog Note ---
Internal Medicine Subjective - Subjective Service Date: 02/05/18 Patient is:: awake, verbal Per staff patient has:: no adverse event, eating well, agitated, tolerating meds Internal Medicine Objective - Results Recent Labs: Laboratory Last Values Valproic Acid 52.8 ug/mL (50.0-100.0) 02/03/18 14:30 Carbamazepine 10.8 ug/ml (4.0-12.0) 02/03/18 14:30 - Physical Exam Vitals and I&O: Vital Signs Temp 97.9 F 02/05/18 06:05 Pulse 59 02/05/18 09:33 Resp 18 02/05/18 11:04 BP 117/70 02/05/18 09:33 Pulse Ox 94 02/05/18 06:05 Intake & Output 02/04/18 02/05/18 02/05/18 18:59 06:59 18:59 Intake Total 900 360 Balance 900 360 Intake: Oral 900 360 Other: # Voids 4 2 # Bowel Movements 1 2 Stool Characteristics Soft Soft Formed Formed Active Medications: Current Medications Acetaminophen (Tylenol) 650 mg PO Q4HR PRN PRN Reason: Pain Or Fever above 101 Stop: 04/01/18 19:59 Al Hydrox/Mg Hydrox/Simethicone (Maalox) 30 ml PO Q6HR PRN PRN Reason: Dyspepsia Stop: 04/01/18 19:59 Albuterol Sulfate (Albuterol 2.5mg/3ml Neb Ud) 2.5 mg HHN Q2HR PRN PRN Reason: Shortness of Breath or Wheeze Stop: 04/01/18 19:59 Aspirin (Aspirin Chewable) 81 mg PO DAILY [facility] Stop: 04/02/18 08:59 Last Admin: 02/05/18 09:34 Dose: 81 mg Atorvastatin Calcium (Lipitor) 20 mg PO HS [facility] PRN Reason: Protocol Stop: 04/01/18 20:59 Last Admin: 02/04/18 21:26 Dose: 20 mg Benztropine Mesylate (Cogentin) 1 mg PO BID [facility] Stop: 04/02/18 08:59 Last Admin: 02/05/18 09:34 Dose: 1 mg Buspirone HCl (Buspar) 10 mg PO BID [facility] PRN Reason: Protocol Stop: 04/02/18 08:59 Last Admin: 02/05/18 09:34 Dose: 10 mg Carbamazepine (Tegretol) 600 mg PO Q12HR [facility] PRN Reason: Protocol Stop: 04/02/18 20:59 Last Admin: 02/05/18 09:32 Dose: 600 mg Carbidopa/Levodopa (Sinemet 25mg-100 Mg) 1 tab PO TID [facility] Stop: 04/01/18 20:59 Last Admin: 02/05/18 09:32 Dose: 1 tab Docusate Sodium (Colace) 100 mg PO DAILY [facility] Stop: 04/02/18 08:59 Last Admin: 02/05/18 09:32 Dose: 100 mg Fenofibrate (Tricor) 134 mg PO DAILY [facility] Stop: 04/02/18 08:59 Last Admin: 02/05/18 09:34 Dose: 134 mg Guaifenesin (Robitussin) 100 mg PO Q4H PRN PRN Reason: Cough or Congestion Stop: 04/01/18 19:59 Last Admin: 02/02/18 22:31 Dose: 100 mg Heparin Sodium (Porcine) (Heparin) 5,000 units SUBQ Q12HR [facility] Stop: 04/01/18 20:59 Last Admin: 02/05/18 09:32 Dose: 5,000 units Ipratropium [place] (Atrovent Neb 0.5mg/2.5ml) 0.5 mg HHN Q2HR PRN PRN Reason: Shortness of Breath or Wheeze Stop: 04/01/18 19:59 Lactulose (Cephulac) 30 gm PO QID [facility] Stop: 04/02/18 12:59 Last Admin: 02/05/18 12:15 Dose: Not Given Lorazepam (Ativan) 0.5 mg PO Q4HR PRN; Protocol PRN Reason: Anxiety Stop: 04/01/18 19:40 Losartan Potassium (Cozaar) 100 mg PO DAILY [facility] Stop: 04/02/18 08:59 Last Admin: 02/05/18 09:33 Dose: Not Given Magnesium Hydroxide (Milk Of Magnesia) 30 ml PO HS PRN PRN Reason: Constipation Multivitamins/Vitamin C (Theragran) 1 tab PO DAILY [facility] Stop: 04/02/18 08:59 Last Admin: 02/05/18 09:32 Dose: 1 tab Oxybutynin Chloride (Ditropan) 5 mg PO HS [facility] Stop: 04/01/18 20:59 Last Admin: 02/04/18 21:44 Dose: 5 mg Pantoprazole Sodium (Protonix) 40 mg PO QDAC [facility] Stop: 04/02/18 07:29 Last Admin: 02/05/18 06:32 Dose: 40 mg Quetiapine Fumarate (Seroquel) 50 mg PO BID [facility] PRN Reason: Protocol Stop: 04/02/18 08:59 Last Admin: 02/05/18 09:33 Dose: 50 mg Sodium Chloride (Nacl Tab) 1 gm PO BID [facility] Stop: 04/02/18 08:59 Last Admin: 02/05/18 09:32 Dose: 1 gm Valproate Sodium (Depakene) 1,000 mg PO BID [facility] PRN Reason: Protocol Stop: 04/06/18 08:59 Last Admin: 02/05/18 09:34 Dose: 1,000 mg Valproate Sodium (Depakene) 500 mg PO HS [facility] PRN Reason: Protocol Stop: 04/05/18 20:59 Zolpidem Tartrate (Ambien) 5 mg PO HS PRN PRN Reason: Insomnia Stop: 04/01/18 19:58 Last Admin: 02/05/18 00:28 Dose: 5 mg General: alert HEENT: NC/AT, PERRLA Neck: Supple Lungs: CTAB Cardiovascular: RRR, Normal S1, Normal S2, without murmur Abdomen: soft, non-tender, non-distended, positive bowel sound Neurological: alert, bedbound - Procedures Procedures: Procedures Procedure Code Date COLONOSCOPY W/LESION REMOVAL 81549 09/17/17 EXCISION OF ASCENDING COLON, ENDO, DIAGN [id number] 09/17/17 EXCISION OF RECTUM, ENDO [id number] 09/17/17 EXCISION OF TRANSVERSE COLON, ENDO [id number] 09/17/17 EXCISION OF TRANSVERSE COLON, ENDO, DIAGN [id number] 09/17/17 GROUP PSYCHOTHERAPY 89947 12/06/15 GROUP PSYCHOTHERAPY GZHZZZZ 12/06/15 OTHER GROUP THERAPY 94.44 06/02/14 RECREATIONAL THERAPY 93.81 07/28/11 Internal Medicine Assmt/Plan - Assessment Assessment: mild protein calorie malnutrition generalized weakness DJD hypercholesteremia schizoaffective disorder parkinson's - Plan Plan: fall precaution cont on sinemet dw rn
--- NOTE | 2018-02-05 19:32 | Progress Notes ---
DATE: 02/05/2018 SUBJECTIVE: Staff was spoken to. The patient is interviewed. Mood is noted to be irritable. Affect is constricted. Insight and judgment are still impaired. The patient is screaming and yelling. The patient's coping skills at this time are noted to be very poor. No side effects to the medications are noted. The patient is being redirected at this time. The patient has been trying to very intrusive and impulsive and has been trying to touch the female staff when they are trying to help him. The patient is currently on both Tegretol as well as the Depakote and is also on Seroquel, which is being given at 50 mg twice a day. The patient has been able to tolerate. No side effects to the medications are noted. ASSESSMENT: The patient is still impulsive. PLAN: To continue the patient with the supportive therapy and followup. JOB# [id number]
[2018-02-05] MEDS: Atorvastatin Calcium 10 MG TAB PO SCH (20:47)
[2018-02-06] MEDS: Pantoprazole 40 mg EC Tab PO SCH (07:21)
[2018-02-06] MEDS: Benztropine 1 MG TAB PO SCH ×2 (10:10→17:21)
[2018-02-06] MEDS: Multivitamin Tab PO SCH (10:10)
[2018-02-06] MEDS: Fenofibrate, Micronized 134 mg Cap PO SCH (10:10)
[2018-02-06] MEDS: Aspirin 81mg Chewable Tab PO SCH (10:12)
[2018-02-06] MEDS: Lactulose 10 Gm/15 mL 30mL UDC PO SCH ×4 (10:29→21:38)
--- NOTE | 2018-02-06 13:50 | Internal Medicine Prog Note ---
Internal Medicine Subjective - Subjective Service Date: 02/06/18 Patient is:: awake, verbal Per staff patient has:: no adverse event, eating well, agitated, tolerating meds Internal Medicine Objective - Results Recent Labs: Laboratory Last Values Valproic Acid 52.8 ug/mL (50.0-100.0) 02/03/18 14:30 Carbamazepine 10.8 ug/ml (4.0-12.0) 02/03/18 14:30 - Physical Exam Vitals and I&O: Vital Signs Temp 97.6 F 02/06/18 06:32 Pulse 64 02/06/18 10:11 Resp 18 02/06/18 07:33 BP 123/69 02/06/18 10:11 Pulse Ox 92 02/06/18 07:31 Intake & Output 02/05/18 02/06/18 02/06/18 18:59 06:59 18:59 Intake Total 120 Balance 120 Intake: Oral 120 Other: # Voids 3 Stool Characteristics Soft Formed Active Medications: Current Medications Acetaminophen (Tylenol) 650 mg PO Q4HR PRN PRN Reason: Pain Or Fever above 101 Stop: 04/01/18 19:59 Al Hydrox/Mg Hydrox/Simethicone (Maalox) 30 ml PO Q6HR PRN PRN Reason: Dyspepsia Stop: 04/01/18 19:59 Albuterol Sulfate (Albuterol 2.5mg/3ml Neb Ud) 2.5 mg HHN Q2HR PRN PRN Reason: Shortness of Breath or Wheeze Stop: 04/01/18 19:59 Aspirin (Aspirin Chewable) 81 mg PO DAILY [facility] Stop: 04/02/18 08:59 Last Admin: 02/06/18 10:12 Dose: 81 mg Atorvastatin Calcium (Lipitor) 20 mg PO HS [facility] PRN Reason: Protocol Stop: 04/01/18 20:59 Last Admin: 02/05/18 20:47 Dose: 20 mg Benztropine Mesylate (Cogentin) 1 mg PO BID [facility] Stop: 04/02/18 08:59 Last Admin: 02/06/18 10:10 Dose: 1 mg Buspirone HCl (Buspar) 10 mg PO BID [facility] PRN Reason: Protocol Stop: 04/02/18 08:59 Last Admin: 02/06/18 10:13 Dose: 10 mg Carbamazepine (Tegretol) 600 mg PO Q12HR [facility] PRN Reason: Protocol Stop: 04/02/18 20:59 Last Admin: 02/06/18 10:10 Dose: 600 mg Carbidopa/Levodopa (Sinemet 25mg-100 Mg) 1 tab PO TID [facility] Stop: 04/01/18 20:59 Last Admin: 02/06/18 10:12 Dose: 1 tab Docusate Sodium (Colace) 100 mg PO DAILY [facility] Stop: 04/02/18 08:59 Last Admin: 02/06/18 10:12 Dose: 100 mg Fenofibrate (Tricor) 134 mg PO DAILY [facility] Stop: 04/02/18 08:59 Last Admin: 02/06/18 10:10 Dose: 134 mg Guaifenesin (Robitussin) 100 mg PO Q4H PRN PRN Reason: Cough or Congestion Stop: 04/01/18 19:59 Last Admin: 02/02/18 22:31 Dose: 100 mg Heparin Sodium (Porcine) (Heparin) 5,000 units SUBQ Q12HR [facility] Stop: 04/01/18 20:59 Last Admin: 02/06/18 10:10 Dose: 5,000 units Ipratropium [place] (Atrovent Neb 0.5mg/2.5ml) 0.5 mg HHN Q2HR PRN PRN Reason: Shortness of Breath or Wheeze Stop: 04/01/18 19:59 Lactulose (Cephulac) 30 gm PO QID [facility] Stop: 04/02/18 12:59 Last Admin: 02/06/18 10:29 Dose: Not Given Lorazepam (Ativan) 0.5 mg PO Q4HR PRN; Protocol PRN Reason: Anxiety Stop: 04/01/18 19:40 Losartan Potassium (Cozaar) 100 mg PO DAILY [facility] Stop: 04/02/18 08:59 Last Admin: 02/06/18 10:11 Dose: 100 mg Magnesium Hydroxide (Milk Of Magnesia) 30 ml PO HS PRN PRN Reason: Constipation Multivitamins/Vitamin C (Theragran) 1 tab PO DAILY [facility] Stop: 04/02/18 08:59 Last Admin: 02/06/18 10:10 Dose: 1 tab Oxybutynin Chloride (Ditropan) 5 mg PO HS [facility] Stop: 04/01/18 20:59 Last Admin: 02/05/18 20:48 Dose: 5 mg Pantoprazole Sodium (Protonix) 40 mg PO QDAC [facility] Stop: 04/02/18 07:29 Last Admin: 02/06/18 07:21 Dose: 40 mg Quetiapine Fumarate (Seroquel) 50 mg PO BID [facility] PRN Reason: Protocol Stop: 04/02/18 08:59 Last Admin: 02/06/18 10:12 Dose: 50 mg Sodium Chloride (Nacl Tab) 1 gm PO BID [facility] Stop: 04/02/18 08:59 Last Admin: 02/06/18 10:10 Dose: 1 gm Valproate Sodium (Depakene) 1,000 mg PO BID [facility] PRN Reason: Protocol Stop: 04/06/18 08:59 Last Admin: 02/06/18 10:11 Dose: 1,000 mg Valproate Sodium (Depakene) 500 mg PO HS [facility] PRN Reason: Protocol Stop: 04/05/18 20:59 Last Admin: 02/05/18 21:25 Dose: 500 mg Zolpidem Tartrate (Ambien) 5 mg PO HS PRN PRN Reason: Insomnia Stop: 04/01/18 19:58 Last Admin: 02/05/18 20:47 Dose: 5 mg General: alert HEENT: NC/AT, PERRLA Neck: Supple Lungs: CTAB Cardiovascular: RRR, Normal S1, Normal S2, without murmur Abdomen: soft, non-tender, non-distended, positive bowel sound Neurological: alert, bedbound - Procedures Procedures: Procedures Procedure Code Date COLONOSCOPY W/LESION REMOVAL 77228 09/17/17 EXCISION OF ASCENDING COLON, ENDO, DIAGN [id number] 09/17/17 EXCISION OF RECTUM, ENDO [id number] 09/17/17 EXCISION OF TRANSVERSE COLON, ENDO [id number] 09/17/17 EXCISION OF TRANSVERSE COLON, ENDO, DIAGN [id number] 09/17/17 GROUP PSYCHOTHERAPY 67206 12/06/15 GROUP PSYCHOTHERAPY GZHZZZZ 12/06/15 OTHER GROUP THERAPY 94.44 06/02/14 RECREATIONAL THERAPY 93.81 07/28/11 Internal Medicine Assmt/Plan - Assessment Assessment: mild protein calorie malnutrition generalized weakness DJD hypercholesteremia schizoaffective disorder parkinson's - Plan Plan: swallow eval fall precaution cont on sinemet dw rn Nutritional Asmnt/Malnutr-PDOC - Dietary Evaluation Malnutrition Findings (Please click <Entered> for more info): Nutritional Asmnt/Malnutrition Start: 02/05/18 16: 47 Text: Status: Complete Freq: Document 02/05/18 16:48 LALA (Rec: 02/05/18 16:52 LCHENG [email or web address]) Nutritional Asmnt/Malnutrition Patient General Information Nutritional Screening Moderate Risk Diagnosis psychosis Pertinent Medical Hx/Surgical Hx CVA, DJD, hypersholesterolemia , schizoaffective disorder, parkinson's high ammonia level , FURNACE FILLER shunt, 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 Current Diet Order/ Nutrition Support pureed Pertinent Medications colace, cephulac, theragran, protonix, serqoeul, nacl Pertinent Labs no nutrition labs Nutritional Hx/Data Height 6 ft Height (Calculated Centimeters) 182.9 Current Weight (lbs) 223 lb Weight (Calculated Kilograms) 101.2 Weight (Calculated Grams) 641774.1 [place] Body Weight 178 Body Mass Index (BMI) 30.2 Weight Status Obese GI Symptoms GI Symptoms None Difficult in: None Skin Integrity/Comment: redness Current %PO Good (75-100%) Estimated Nutritional Goals BEE in Kcals: Adj wt of IBW Calories/Kcals/Kg 25-30 Kcals Calculated [id number] Protein: Adj wt of IBW Protein g/k Protein Calculated 86 Fluid: ml 2150-2580ml (1ml/kcal) Nutritional Problem No current Nutrition Prob Problem N/A Intervention/Recommendation Comments 1. Continue with current diet as ordered. 2. Monitor PO intake, wt, labs and skin integrity 3. F/U as low risk in 7d ays, 4/10 Expected Outcomes/Goals Expected Outcomes/Goals 1. PO intake to meet at least 75% of nutritional needs. 2. Wt stability, skin to remain intact, labs to approach WNL.
--- NOTE | 2018-02-06 16:26 | Progress Notes ---
DATE: 02/06/2018 SUBJECTIVE: Staff was spoken to. The patient is interviewed. Mood is noted to be irritable. Affect is constricted. The patient is still screaming and yelling, needs to be redirected. Coping skills at this time are noted to be very poor. Sleep and appetite also noted to be very poor. The patient has been having difficult time to cope with the stress. ASSESSMENT: The patient has still major behavioral problem. PLAN: To continue the patient with the supportive therapy. The patient is not ready to be discharged to a lower level of care in view of his impulsivity. JOB# [id number]
[2018-02-06] MEDS: Atorvastatin Calcium 10 MG TAB PO SCH (21:39)
[2018-02-07] MEDS: Pantoprazole 40 mg EC Tab PO SCH (06:36)
[2018-02-07] MEDS: Fenofibrate, Micronized 134 mg Cap PO SCH (09:29)
[2018-02-07] MEDS: Lactulose 10 Gm/15 mL 30mL UDC PO SCH ×4 (09:30→21:29)
[2018-02-07] MEDS: Benztropine 1 MG TAB PO SCH ×2 (09:30→17:38)
[2018-02-07] MEDS: Aspirin 81mg Chewable Tab PO SCH (09:30)
[2018-02-07] MEDS: Multivitamin Tab PO SCH (09:30)
--- NOTE | 2018-02-07 14:59 | Internal Medicine Prog Note ---
Internal Medicine Subjective - Subjective Service Date: 02/07/18 Patient is:: awake, verbal Per staff patient has:: no adverse event, eating well, agitated, tolerating meds Internal Medicine Objective - Results Recent Labs: Laboratory Last Values Valproic Acid 52.8 ug/mL (50.0-100.0) 02/03/18 14:30 Carbamazepine 10.8 ug/ml (4.0-12.0) 02/03/18 14:30 - Physical Exam Vitals and I&O: Vital Signs Temp 97.7 F 02/07/18 06:29 Pulse 64 02/07/18 09:29 Resp 20 02/07/18 07:04 BP 136/76 02/07/18 09:29 Pulse Ox 93 02/07/18 07:04 Intake & Output 02/06/18 02/07/18 02/07/18 18:59 06:59 18:59 Intake Total 900 120 Balance 900 120 Intake: Oral 900 120 Other: # Voids 3 3 # Bowel Movements 1 Active Medications: Current Medications Acetaminophen (Tylenol) 650 mg PO Q4HR PRN PRN Reason: Pain Or Fever above 101 Stop: 04/01/18 19:59 Al Hydrox/Mg Hydrox/Simethicone (Maalox) 30 ml PO Q6HR PRN PRN Reason: Dyspepsia Stop: 04/01/18 19:59 Albuterol Sulfate (Albuterol 2.5mg/3ml Neb Ud) 2.5 mg HHN Q2HR PRN PRN Reason: Shortness of Breath or Wheeze Stop: 04/01/18 19:59 Aspirin (Aspirin Chewable) 81 mg PO DAILY [facility] Stop: 04/02/18 08:59 Last Admin: 02/07/18 09:30 Dose: 81 mg Atorvastatin Calcium (Lipitor) 20 mg PO HS DARA PRN Reason: Protocol Stop: 04/01/18 20:59 Last Admin: 02/06/18 21:39 Dose: 20 mg Benztropine Mesylate (Cogentin) 1 mg PO BID [facility] Stop: 04/02/18 08:59 Last Admin: 02/07/18 09:30 Dose: 1 mg Buspirone HCl (Buspar) 10 mg PO BID DARA PRN Reason: Protocol Stop: 04/02/18 08:59 Last Admin: 02/07/18 09:28 Dose: 10 mg Carbamazepine (Tegretol) 600 mg PO Q12HR DARA PRN Reason: Protocol Stop: 04/02/18 20:59 Last Admin: 02/07/18 09:28 Dose: 600 mg Carbidopa/Levodopa (Sinemet 25mg-100 Mg) 1 tab PO TID [facility] Stop: 04/01/18 20:59 Last Admin: 02/07/18 14:52 Dose: 1 tab Docusate Sodium (Colace) 100 mg PO DAILY [facility] Stop: 04/02/18 08:59 Last Admin: 02/07/18 09:30 Dose: 100 mg Fenofibrate (Tricor) 134 mg PO DAILY [facility] Stop: 04/02/18 08:59 Last Admin: 02/07/18 09:29 Dose: 134 mg Guaifenesin (Robitussin) 100 mg PO Q4H PRN PRN Reason: Cough or Congestion Stop: 04/01/18 19:59 Last Admin: 02/02/18 22:31 Dose: 100 mg Heparin Sodium (Porcine) (Heparin) 5,000 units SUBQ Q12HR [facility] Stop: 04/01/18 20:59 Last Admin: 02/07/18 09:32 Dose: 5,000 units Ipratropium [place] (Atrovent Neb 0.5mg/2.5ml) 0.5 mg HHN Q2HR PRN PRN Reason: Shortness of Breath or Wheeze Stop: 04/01/18 19:59 Lactulose (Cephulac) 30 gm PO QID [facility] Stop: 04/02/18 12:59 Last Admin: 02/07/18 14:00 Dose: 30 gm Lorazepam (Ativan) 0.5 mg PO Q4HR PRN; Protocol PRN Reason: Anxiety Stop: 04/01/18 19:40 Losartan Potassium (Cozaar) 100 mg PO DAILY [facility] Stop: 04/02/18 08:59 Last Admin: 02/07/18 09:29 Dose: 100 mg Magnesium Hydroxide (Milk Of Magnesia) 30 ml PO HS PRN PRN Reason: Constipation Multivitamins/Vitamin C (Theragran) 1 tab PO DAILY [facility] Stop: 04/02/18 08:59 Last Admin: 02/07/18 09:30 Dose: 1 tab Oxybutynin Chloride (Ditropan) 5 mg PO HS [facility] Stop: 04/01/18 20:59 Last Admin: 02/06/18 21:40 Dose: 5 mg Pantoprazole Sodium (Protonix) 40 mg PO QDAC [facility] Stop: 04/02/18 07:29 Last Admin: 02/07/18 06:36 Dose: 40 mg Quetiapine Fumarate (Seroquel) 50 mg PO BID [facility] PRN Reason: Protocol Stop: 04/02/18 08:59 Last Admin: 02/07/18 09:29 Dose: 50 mg Sodium Chloride (Nacl Tab) 1 gm PO BID [facility] Stop: 04/02/18 08:59 Last Admin: 02/07/18 09:29 Dose: 1 gm Valproate Sodium (Depakene) 1,000 mg PO BID [facility] PRN Reason: Protocol Stop: 04/06/18 08:59 Last Admin: 02/07/18 09:31 Dose: 1,000 mg Valproate Sodium (Depakene) 500 mg PO HS [facility]ARA PRN Reason: Protocol Stop: 04/05/18 20:59 Last Admin: 02/06/18 21:39 Dose: 500 mg Zolpidem Tartrate (Ambien) 5 mg PO HS PRN PRN Reason: Insomnia Stop: 04/01/18 19:58 Last Admin: 02/06/18 21:40 Dose: 5 mg General: alert HEENT: NC/AT, PERRLA Neck: Supple Lungs: CTAB Cardiovascular: RRR, Normal S1, Normal S2, without murmur Abdomen: soft, non-tender, non-distended, positive bowel sound Neurological: alert, bedbound - Procedures Procedures: Procedures Procedure Code Date COLONOSCOPY W/LESION REMOVAL 00696 09/17/17 EXCISION OF ASCENDING COLON, ENDO, DIAGN [id number] 09/17/17 EXCISION OF RECTUM, ENDO [id number] 09/17/17 EXCISION OF TRANSVERSE COLON, ENDO [id number] 09/17/17 EXCISION OF TRANSVERSE COLON, ENDO, DIAGN [id number] 09/17/17 GROUP PSYCHOTHERAPY 59379 12/06/15 GROUP PSYCHOTHERAPY GZHZZZZ 12/06/15 OTHER GROUP THERAPY 94.44 06/02/14 RECREATIONAL THERAPY 93.81 07/28/11 Internal Medicine Assmt/Plan - Assessment Assessment: mild protein calorie malnutrition generalized weakness DJD hypercholesteremia schizoaffective disorder parkinson's - Plan Plan: swallow eval fall precaution cont on sinemet dw rn Nutritional Asmnt/Malnutr-PDOC - Dietary Evaluation Malnutrition Findings (Please click <Entered> for more info): Nutritional Asmnt/Malnutrition Start: 02/05/18 16: 47 Text: Status: Complete Freq: Document 02/05/18 16:48 LCLALA (Rec: 02/05/18 16:52 [place] [id number]) Nutritional Asmnt/Malnutrition Patient General Information Nutritional Screening Moderate Risk Diagnosis psychosis Pertinent Medical Hx/Surgical Hx CVA, DJD, hypersholesterolemia , schizoaffective disorder, parkinson's high ammonia level , 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 Current Diet Order/ Nutrition Support pureed Pertinent Medications colace, cephulac, theragran, protonix, serqoeul, nacl Pertinent Labs no nutrition labs Nutritional Hx/Data Height 6 ft Height (Calculated Centimeters) 182.9 Current Weight (lbs) 223 lb Weight (Calculated Kilograms) 101.2 Weight (Calculated Grams) 158872.1 [place] Body Weight 178 Body Mass Index (BMI) 30.2 Weight Status Obese GI Symptoms GI Symptoms None Difficult in: None Skin Integrity/Comment: redness Current %PO Good (75-100%) Estimated Nutritional Goals BEE in Kcals: Adj wt of IBW Calories/Kcals/Kg 25-30 Kcals Calculated 2294-6346 Protein: Adj wt of IBW Protein g/k Protein Calculated 86 Fluid: ml 2150-2580ml (1ml/kcal) Nutritional Problem No current Nutrition Prob Problem N/A Intervention/Recommendation Comments 1. Continue with current diet as ordered. 2. Monitor PO intake, wt, labs and skin integrity 3. F/U as low risk in 7d ays, 4/10 Expected Outcomes/Goals Expected Outcomes/Goals 1. PO intake to meet at least 75% of nutritional needs. 2. Wt stability, skin to remain intact, labs to approach WNL.
[2018-02-07] MEDS: Atorvastatin Calcium 10 MG TAB PO SCH (21:29)
--- NOTE | 2018-02-08 02:25 | Progress Notes ---
DATE: 02/07/2018 SUBJECTIVE: Staff was spoken to. The patient is interviewed. Mood is noted to be irritable. Affect is constricted. Insight and judgment at this time are noted to be still impaired. Impulse control seems to be poor. Coping skills are also noted to be poor. The patient has been having difficult time to be redirected. The patient has been trying to touch the female staff and has to be redirected constantly. No side effects to the medications are noted. The patient's Depakote level and Tegretol level are being closely monitored. The patient is currently on 600 mg twice a day of the Tegretol and also Seroquel 50 mg twice a day and Depakote 1500 mg. The patient has been able to tolerate the medications. No side effects to the medications are noted. ASSESSMENT: The patient is still impulsive. PLAN: To continue the patient with supportive therapy and followup. JOB# [id number]
[2018-02-08] MEDS: Pantoprazole 40 mg EC Tab PO SCH (06:38)
[2018-02-08] MEDS: Lactulose 10 Gm/15 mL 30mL UDC PO SCH ×4 (09:42→20:26)
[2018-02-08] MEDS: Fenofibrate, Micronized 134 mg Cap PO SCH (09:45)
[2018-02-08] MEDS: Aspirin 81mg Chewable Tab PO SCH (09:48)
[2018-02-08] MEDS: Benztropine 1 MG TAB PO SCH ×2 (09:49→17:51)
[2018-02-08] MEDS: Multivitamin Tab PO SCH (10:01)
--- NOTE | 2018-02-08 12:43 | Internal Medicine Prog Note ---
Internal Medicine Subjective - Subjective Service Date: 02/08/18 Patient is:: awake, verbal Per staff patient has:: no adverse event, eating well, agitated, tolerating meds Internal Medicine Objective - Results Recent Labs: Laboratory Last Values Valproic Acid 52.8 ug/mL (50.0-100.0) 02/03/18 14:30 Carbamazepine 10.8 ug/ml (4.0-12.0) 02/03/18 14:30 - Physical Exam Vitals and I&O: Vital Signs Temp 97.3 F 02/07/18 15:14 Pulse 69 02/08/18 09:52 Resp 20 02/08/18 07:37 BP 110/67 02/08/18 09:52 Pulse Ox 94 02/08/18 07:37 Active Medications: Current Medications Acetaminophen (Tylenol) 650 mg PO Q4HR PRN PRN Reason: Pain Or Fever above 101 Stop: 04/01/18 19:59 Al Hydrox/Mg Hydrox/Simethicone (Maalox) 30 ml PO Q6HR PRN PRN Reason: Dyspepsia Stop: 04/01/18 19:59 Albuterol Sulfate (Albuterol 2.5mg/3ml Neb Ud) 2.5 mg HHN Q2HR PRN PRN Reason: Shortness of Breath or Wheeze Stop: 04/01/18 19:59 Aspirin (Aspirin Chewable) 81 mg PO DAILY [facility] Stop: 04/02/18 08:59 Last Admin: 02/08/18 09:48 Dose: 81 mg Atorvastatin Calcium (Lipitor) 20 mg PO HS DARA PRN Reason: Protocol Stop: 04/01/18 20:59 Last Admin: 02/07/18 21:29 Dose: 20 mg Benztropine Mesylate (Cogentin) 1 mg PO BID [facility] Stop: 04/02/18 08:59 Last Admin: 02/08/18 09:49 Dose: 1 mg Buspirone HCl (Buspar) 10 mg PO BID [facility] PRN Reason: Protocol Stop: 04/02/18 08:59 Last Admin: 02/08/18 09:45 Dose: 10 mg Carbamazepine (Tegretol) 600 mg PO Q12HR [facility] PRN Reason: Protocol Stop: 04/02/18 20:59 Last Admin: 02/08/18 09:43 Dose: 600 mg Carbidopa/Levodopa (Sinemet 25mg-100 Mg) 1 tab PO TID [facility] Stop: 04/01/18 20:59 Last Admin: 02/08/18 09:45 Dose: 1 tab Docusate Sodium (Colace) 100 mg PO DAILY [facility] Stop: 04/02/18 08:59 Last Admin: 02/08/18 09:49 Dose: 100 mg Fenofibrate (Tricor) 134 mg PO DAILY [facility] Stop: 04/02/18 08:59 Last Admin: 02/08/18 09:45 Dose: 134 mg Guaifenesin (Robitussin) 100 mg PO Q4H PRN PRN Reason: Cough or Congestion Stop: 04/01/18 19:59 Last Admin: 02/02/18 22:31 Dose: 100 mg Ipratropium [place] (Atrovent Neb 0.5mg/2.5ml) 0.5 mg HHN Q2HR PRN PRN Reason: Shortness of Breath or Wheeze Stop: 04/01/18 19:59 Lactulose (Cephulac) 30 gm PO QID [facility] Stop: 04/02/18 12:59 Last Admin: 02/08/18 09:42 Dose: 30 gm Lorazepam (Ativan) 0.5 mg PO Q4HR PRN; Protocol PRN Reason: Anxiety Stop: 04/01/18 19:40 Losartan Potassium (Cozaar) 100 mg PO DAILY [facility] Stop: 04/02/18 08:59 Last Admin: 02/08/18 09:52 Dose: 100 mg Magnesium Hydroxide (Milk Of Magnesia) 30 ml PO HS PRN PRN Reason: Constipation Multivitamins/Vitamin C (Theragran) 1 tab PO DAILY [facility] Stop: 04/02/18 08:59 Last Admin: 02/08/18 10:01 Dose: 1 tab Oxybutynin Chloride (Ditropan) 5 mg PO HS [facility] Stop: 04/01/18 20:59 Last Admin: 02/07/18 21:31 Dose: 5 mg Pantoprazole Sodium (Protonix) 40 mg PO QDAC [facility] Stop: 04/02/18 07:29 Last Admin: 02/08/18 06:38 Dose: 40 mg Quetiapine Fumarate (Seroquel) 50 mg PO BID [facility] PRN Reason: Protocol Stop: 04/02/18 08:59 Last Admin: 02/08/18 09:47 Dose: 50 mg Sodium Chloride (Nacl Tab) 1 gm PO BID [facility] Stop: 04/02/18 08:59 Last Admin: 02/08/18 09:46 Dose: 1 gm Valproate Sodium (Depakene) 1,000 mg PO BID [facility] PRN Reason: Protocol Stop: 04/06/18 08:59 Last Admin: 02/08/18 09:51 Dose: 1,000 mg Valproate Sodium (Depakene) 500 mg PO HS [facility] PRN Reason: Protocol Stop: 04/05/18 20:59 Last Admin: 02/07/18 21:28 Dose: 500 mg Zolpidem Tartrate (Ambien) 5 mg PO HS PRN PRN Reason: Insomnia Stop: 04/01/18 19:58 Last Admin: 02/07/18 21:30 Dose: 5 mg General: alert HEENT: NC/AT, PERRLA Neck: Supple Lungs: CTAB Cardiovascular: RRR, Normal S1, Normal S2, without murmur Abdomen: soft, non-tender, non-distended, positive bowel sound Neurological: alert, bedbound - Procedures Procedures: Procedures Procedure Code Date COLONOSCOPY W/LESION REMOVAL 76504 09/17/17 EXCISION OF ASCENDING COLON, ENDO, DIAGN [id number] 09/17/17 EXCISION OF RECTUM, ENDO [id number] 09/17/17 EXCISION OF TRANSVERSE COLON, ENDO [id number] 09/17/17 EXCISION OF TRANSVERSE COLON, ENDO, DIAGN [id number] 09/17/17 GROUP PSYCHOTHERAPY 30353 12/06/15 GROUP PSYCHOTHERAPY GZHZZZZ 12/06/15 OTHER GROUP THERAPY 94.44 06/02/14 RECREATIONAL THERAPY 93.81 07/28/11 Internal Medicine Assmt/Plan - Assessment Assessment: mild protein calorie malnutrition generalized weakness DJD hypercholesteremia schizoaffective disorder parkinson's - Plan Plan: swallow eval fall precaution cont on sinemet dw rn Nutritional Asmnt/Malnutr-PDOC - Dietary Evaluation Malnutrition Findings (Please click <Entered> for more info): Nutritional Asmnt/Malnutrition Start: 02/05/18 16: 47 Text: Status: Complete Freq: Document 02/05/18 16:48 SHANTEL (Rec: 02/05/18 16:52 LCARMANIG [email or web address]) Nutritional Asmnt/Malnutrition Patient General Information Nutritional Screening Moderate Risk Diagnosis psychosis Pertinent Medical Hx/Surgical Hx CVA, DJD, hypersholesterolemia , schizoaffective disorder, parkinson's high ammonia level , 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 Current Diet Order/ Nutrition Support pureed Pertinent Medications colace, cephulac, theragran, protonix, serqoeul, nacl Pertinent Labs no nutrition labs Nutritional Hx/Data Height 6 ft Height (Calculated Centimeters) 182.9 Current Weight (lbs) 223 lb Weight (Calculated Kilograms) 101.2 Weight (Calculated Grams) 607159.1 [place] Body Weight 178 Body Mass Index (BMI) 30.2 Weight Status Obese GI Symptoms GI Symptoms None Difficult in: None Skin Integrity/Comment: redness Current %PO Good (75-100%) Estimated Nutritional Goals BEE in Kcals: Adj wt of IBW Calories/Kcals/Kg 25-30 Kcals Calculated 4581-9038 Protein: Adj wt of IBW Protein g/k Protein Calculated 86 Fluid: ml 2150-2580ml (1ml/kcal) Nutritional Problem No current Nutrition Prob Problem N/A Intervention/Recommendation Comments 1. Continue with current diet as ordered. 2. Monitor PO intake, wt, labs and skin integrity 3. F/U as low risk in 7d ays, 4/10 Expected Outcomes/Goals Expected Outcomes/Goals 1. PO intake to meet at least 75% of nutritional needs. 2. Wt stability, skin to remain intact, labs to approach WNL.
[2018-02-08] MEDS: Atorvastatin Calcium 10 MG TAB PO SCH (20:25)
--- NOTE | 2018-02-09 03:25 | Progress Notes ---
DATE: 02/08/2018 PSYCHIATRIC PROGRESS NOTE SUBJECTIVE: Staff was spoken to. The patient is interviewed. Mood is a little bit less irritable. Affect is constricted. The patient, however, continues to have grab the females whenever they tried to help him out. The patient coping skills are noted to be very poor. Insight and judgment are noted to be still impaired. The patient is currently on 50 mg of the Seroquel twice a day. In view of his impulsivity, it is decided to increase the dose on the Seroquel to 50 mg 3 times a day and follow the patient with supportive therapy. The patient at this time, he is not able to contract for safety. PLAN: To continue the patient with the supportive therapy and closely monitored. The patient is not ready to be discharged to a lower level of care. In view of his aggression and sexualized behavior. JOB# [id number]
[2018-02-09] MEDS: Pantoprazole 40 mg EC Tab PO SCH (06:41)
[2018-02-09] MEDS: Lactulose 10 Gm/15 mL 30mL UDC PO SCH ×4 (09:35→21:31)
[2018-02-09] MEDS: Fenofibrate, Micronized 134 mg Cap PO SCH (09:41)
[2018-02-09] MEDS: Benztropine 1 MG TAB PO SCH ×2 (09:45→17:45)
[2018-02-09] MEDS: Multivitamin Tab PO SCH (09:45)
[2018-02-09] MEDS: Aspirin 81mg Chewable Tab PO SCH (09:45)
--- NOTE | 2018-02-09 13:42 | Internal Medicine Prog Note ---
Internal Medicine Subjective - Subjective Service Date: 02/09/18 Patient is:: awake, verbal Per staff patient has:: no adverse event, eating well, agitated, tolerating meds Internal Medicine Objective - Results Recent Labs: Laboratory Last Values Valproic Acid 52.8 ug/mL (50.0-100.0) 02/03/18 14:30 Carbamazepine 10.8 ug/ml (4.0-12.0) 02/03/18 14:30 - Physical Exam Vitals and I&O: Vital Signs Temp 97 F 02/08/18 20:11 Pulse 55 02/09/18 09:41 Resp 16 02/09/18 08:58 BP 144/73 02/09/18 09:41 Pulse Ox 97 02/09/18 08:58 Intake & Output 02/08/18 02/09/18 02/09/18 18:59 06:59 18:59 Intake Total 1200 480 Balance 1200 480 Intake: Oral 1200 480 Other: # Voids 4 2 # Bowel Movements 2 Active Medications: Current Medications Acetaminophen (Tylenol) 650 mg PO Q4HR PRN PRN Reason: Pain Or Fever above 101 Stop: 04/01/18 19:59 Al Hydrox/Mg Hydrox/Simethicone (Maalox) 30 ml PO Q6HR PRN PRN Reason: Dyspepsia Stop: 04/01/18 19:59 Albuterol Sulfate (Albuterol 2.5mg/3ml Neb Ud) 2.5 mg HHN Q2HR PRN PRN Reason: Shortness of Breath or Wheeze Stop: 04/01/18 19:59 Aspirin (Aspirin Chewable) 81 mg PO DAILY [facility] Stop: 04/02/18 08:59 Last Admin: 02/09/18 09:45 Dose: 81 mg Atorvastatin Calcium (Lipitor) 20 mg PO HS [facility] PRN Reason: Protocol Stop: 04/01/18 20:59 Last Admin: 02/08/18 20:25 Dose: 20 mg Benztropine Mesylate (Cogentin) 1 mg PO BID [facility] Stop: 04/02/18 08:59 Last Admin: 02/09/18 09:45 Dose: 1 mg Buspirone HCl (Buspar) 10 mg PO BID [facility] PRN Reason: Protocol Stop: 04/02/18 08:59 Last Admin: 02/09/18 09:44 Dose: 10 mg Carbamazepine (Tegretol) 600 mg PO Q12HR [facility] PRN Reason: Protocol Stop: 04/02/18 20:59 Last Admin: 02/09/18 09:39 Dose: 600 mg Carbidopa/Levodopa (Sinemet 25mg-100 Mg) 1 tab PO TID [facility] Stop: 04/01/18 20:59 Last Admin: 02/09/18 13:20 Dose: 1 tab Docusate Sodium (Colace) 100 mg PO DAILY [facility] Stop: 04/02/18 08:59 Last Admin: 02/09/18 09:44 Dose: 100 mg Fenofibrate (Tricor) 134 mg PO DAILY [facility] Stop: 04/02/18 08:59 Last Admin: 02/09/18 09:41 Dose: 134 mg Guaifenesin (Robitussin) 100 mg PO Q4H PRN PRN Reason: Cough or Congestion Stop: 04/01/18 19:59 Last Admin: 02/02/18 22:31 Dose: 100 mg Ipratropium [place] (Atrovent Neb 0.5mg/2.5ml) 0.5 mg HHN Q2HR PRN PRN Reason: Shortness of Breath or Wheeze Stop: 04/01/18 19:59 Lactulose (Cephulac) 30 gm PO QID [facility] Stop: 04/02/18 12:59 Last Admin: 02/09/18 13:19 Dose: 30 gm Lorazepam (Ativan) 0.5 mg PO Q4HR PRN; Protocol PRN Reason: Anxiety Stop: 04/01/18 19:40 Losartan Potassium (Cozaar) 100 mg PO DAILY [facility] Stop: 04/02/18 08:59 Last Admin: 02/09/18 09:41 Dose: 100 mg Magnesium Hydroxide (Milk Of Magnesia) 30 ml PO HS PRN PRN Reason: Constipation Multivitamins/Vitamin C (Theragran) 1 tab PO DAILY [facility] Stop: 04/02/18 08:59 Last Admin: 02/09/18 09:45 Dose: 1 tab Oxybutynin Chloride (Ditropan) 5 mg PO HS [facility] Stop: 04/01/18 20:59 Last Admin: 02/08/18 20:28 Dose: 5 mg Pantoprazole Sodium (Protonix) 40 mg PO QDAC [facility] Stop: 04/02/18 07:29 Last Admin: 02/09/18 06:41 Dose: 40 mg Quetiapine Fumarate (Seroquel) 50 mg PO TID [facility] PRN Reason: Protocol Stop: 04/09/18 20:59 Last Admin: 02/09/18 13:20 Dose: 50 mg Sodium Chloride (Nacl Tab) 1 gm PO BID [facility] Stop: 04/02/18 08:59 Last Admin: 02/09/18 09:44 Dose: 1 gm Valproate Sodium (Depakene) 1,000 mg PO BID [facility] PRN Reason: Protocol Stop: 04/06/18 08:59 Last Admin: 02/09/18 09:37 Dose: 1,000 mg Valproate Sodium (Depakene) 500 mg PO HS [facility] PRN Reason: Protocol Stop: 04/05/18 20:59 Last Admin: 02/08/18 20:28 Dose: 500 mg Zolpidem Tartrate (Ambien) 5 mg PO HS PRN PRN Reason: Insomnia Stop: 04/01/18 19:58 Last Admin: 02/07/18 21:30 Dose: 5 mg General: alert HEENT: NC/AT, PERRLA Neck: Supple Lungs: CTAB Cardiovascular: RRR, Normal S1, Normal S2, without murmur Abdomen: soft, non-tender, non-distended, positive bowel sound Neurological: alert, bedbound - Procedures Procedures: Procedures Procedure Code Date COLONOSCOPY W/LESION REMOVAL 45265 09/17/17 EXCISION OF ASCENDING COLON, ENDO, DIAGN [id number] 09/17/17 EXCISION OF RECTUM, ENDO [id number] 09/17/17 EXCISION OF TRANSVERSE COLON, ENDO [id number] 09/17/17 EXCISION OF TRANSVERSE COLON, ENDO, DIAGN [id number] 09/17/17 GROUP PSYCHOTHERAPY 59478 12/06/15 GROUP PSYCHOTHERAPY GZHZZZZ 12/06/15 OTHER GROUP THERAPY 94.44 06/02/14 RECREATIONAL THERAPY 93.81 07/28/11 Internal Medicine Assmt/Plan - Assessment Assessment: mild protein calorie malnutrition generalized weakness DJD hypercholesteremia schizoaffective disorder parkinson's - Plan Plan: swallow eval fall precaution cont on sinemet dw rn Nutritional Asmnt/Malnutr-PDOC - Dietary Evaluation Malnutrition Findings (Please click <Entered> for more info): Nutritional Asmnt/Malnutrition Start: 02/05/18 16: 47 Text: Status: Complete Freq: Document 02/05/18 16:48 SHANTEL (Rec: 02/05/18 16:52 SHANTEL [email or web address]) Nutritional Asmnt/Malnutrition Patient General Information Nutritional Screening Moderate Risk Diagnosis psychosis Pertinent Medical Hx/Surgical Hx CVA, DJD, hypersholesterolemia , schizoaffective disorder, parkinson's 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 Current Diet Order/ Nutrition Support pureed Pertinent Medications colace, cephulac, theragran, protonix, serqoeul, nacl Pertinent Labs no nutrition labs Nutritional Hx/Data Height 6 ft Height (Calculated Centimeters) 182.9 Current Weight (lbs) 223 lb Weight (Calculated Kilograms) 101.2 Weight (Calculated Grams) 486140.1 [place] Body Weight 178 Body Mass Index (BMI) 30.2 Weight Status Obese GI Symptoms GI Symptoms None Difficult in: None Skin Integrity/Comment: redness Current %PO Good (75-100%) Estimated Nutritional Goals BEE in Kcals: Adj wt of IBW Calories/Kcals/Kg 25-30 Kcals Calculated 8365-0731 Protein: Adj wt of IBW Protein g/k Protein Calculated 86 Fluid: ml 2150-2580ml (1ml/kcal) Nutritional Problem No current Nutrition Prob Problem N/A Intervention/Recommendation Comments 1. Continue with current diet as ordered. 2. Monitor PO intake, wt, labs and skin integrity 3. F/U as low risk in 7d ays, 4/10 Expected Outcomes/Goals Expected Outcomes/Goals 1. PO intake to meet at least 75% of nutritional needs. 2. Wt stability, skin to remain intact, labs to approach WNL.
--- NOTE | 2018-02-09 17:04 | Progress Notes ---
DATE: 02/09/2018 PSYCHIATRIC PROGRESS NOTE SUBJECTIVE: Staff was spoken to. The patient is interviewed. Mood is noted to be irritable. Affect is constricted. Coping skills are noted to be poor. Insight and judgment are noted to be impaired. Impulse control is noted to be limited, but the patient could be redirectable. The patient tends to touch the female staff with no reason and patient needs to be redirected. ASSESSMENT: The patient is still impulsive. PLAN: To continue the patient with the Depakote and Tegretol and follow the patient with the supportive therapy. JOB# [id number]
[2018-02-09] MEDS: Atorvastatin Calcium 10 MG TAB PO SCH (21:31)
[2018-02-10] MEDS: Pantoprazole 40 mg EC Tab PO SCH (06:34)
[2018-02-10] MEDS: Lactulose 10 Gm/15 mL 30mL UDC PO SCH ×4 (08:36→21:17)
[2018-02-10] MEDS: Multivitamin Tab PO SCH (08:37)
[2018-02-10] MEDS: Aspirin 81mg Chewable Tab PO SCH (08:37)
[2018-02-10] MEDS: Fenofibrate, Micronized 134 mg Cap PO SCH (08:37)
[2018-02-10] MEDS: Benztropine 1 MG TAB PO SCH ×2 (08:46→16:40)
--- NOTE | 2018-02-10 12:41 | Internal Medicine Prog Note ---
Internal Medicine Subjective - Subjective Service Date: 02/10/18 Patient is:: awake, verbal Per staff patient has:: no adverse event, eating well, agitated, tolerating meds Internal Medicine Objective - Results Recent Labs: Laboratory Last Values Valproic Acid 52.8 ug/mL (50.0-100.0) 02/03/18 14:30 Carbamazepine 10.8 ug/ml (4.0-12.0) 02/03/18 14:30 - Physical Exam Vitals and I&O: Vital Signs Temp 97.2 F 02/10/18 06:31 Pulse 60 02/10/18 08:37 Resp 16 02/10/18 07:26 BP 137/80 02/10/18 08:37 Pulse Ox 95 02/10/18 07:26 Intake & Output 02/09/18 02/10/18 02/10/18 18:59 06:59 18:59 Intake Total 1000 120 Balance 1000 120 Intake: Oral 1000 120 Other: # Voids 3 3 # Bowel Movements 1 Active Medications: Current Medications Acetaminophen (Tylenol) 650 mg PO Q4HR PRN PRN Reason: Pain Or Fever above 101 Stop: 04/01/18 19:59 Al Hydrox/Mg Hydrox/Simethicone (Maalox) 30 ml PO Q6HR PRN PRN Reason: Dyspepsia Stop: 04/01/18 19:59 Albuterol Sulfate (Albuterol 2.5mg/3ml Neb Ud) 2.5 mg HHN Q2HR PRN PRN Reason: Shortness of Breath or Wheeze Stop: 04/01/18 19:59 Aspirin (Aspirin Chewable) 81 mg PO DAILY [facility] Stop: 04/02/18 08:59 Last Admin: 02/10/18 08:37 Dose: 81 mg Atorvastatin Calcium (Lipitor) 20 mg PO HS DARA PRN Reason: Protocol Stop: 04/01/18 20:59 Last Admin: 02/09/18 21:31 Dose: 20 mg Benztropine Mesylate (Cogentin) 1 mg PO BID [facility] Stop: 04/02/18 08:59 Last Admin: 02/10/18 08:46 Dose: 1 mg Buspirone HCl (Buspar) 10 mg PO BID [facility] PRN Reason: Protocol Stop: 04/02/18 08:59 Last Admin: 02/10/18 08:37 Dose: 10 mg Carbamazepine (Tegretol) 600 mg PO Q12HR [facility] PRN Reason: Protocol Stop: 04/02/18 20:59 Last Admin: 02/10/18 08:36 Dose: 600 mg Carbidopa/Levodopa (Sinemet 25mg-100 Mg) 1 tab PO TID [facility] Stop: 04/01/18 20:59 Last Admin: 02/10/18 08:36 Dose: 1 tab Docusate Sodium (Colace) 100 mg PO DAILY [facility] Stop: 04/02/18 08:59 Last Admin: 02/10/18 08:37 Dose: 100 mg Fenofibrate (Tricor) 134 mg PO DAILY [facility] Stop: 04/02/18 08:59 Last Admin: 02/10/18 08:37 Dose: 134 mg Guaifenesin (Robitussin) 100 mg PO Q4H PRN PRN Reason: Cough or Congestion Stop: 04/01/18 19:59 Last Admin: 02/02/18 22:31 Dose: 100 mg Ipratropium [place] (Atrovent Neb 0.5mg/2.5ml) 0.5 mg HHN Q2HR PRN PRN Reason: Shortness of Breath or Wheeze Stop: 04/01/18 19:59 Lactulose (Cephulac) 30 gm PO QID [facility] Stop: 04/02/18 12:59 Last Admin: 02/10/18 08:36 Dose: 30 gm Lorazepam (Ativan) 0.5 mg PO Q4HR PRN; Protocol PRN Reason: Anxiety Stop: 04/01/18 19:40 Losartan Potassium (Cozaar) 100 mg PO DAILY [facility] Stop: 04/02/18 08:59 Last Admin: 02/10/18 08:37 Dose: 100 mg Magnesium Hydroxide (Milk Of Magnesia) 30 ml PO HS PRN PRN Reason: Constipation Multivitamins/Vitamin C (Theragran) 1 tab PO DAILY [facility] Stop: 04/02/18 08:59 Last Admin: 02/10/18 08:37 Dose: 1 tab Oxybutynin Chloride (Ditropan) 5 mg PO HS [facility] Stop: 04/01/18 20:59 Last Admin: 02/09/18 21:30 Dose: 5 mg Pantoprazole Sodium (Protonix) 40 mg PO QDAC [facility] Stop: 04/02/18 07:29 Last Admin: 02/10/18 06:34 Dose: 40 mg Quetiapine Fumarate (Seroquel) 50 mg PO TID [facility] PRN Reason: Protocol Stop: 04/09/18 20:59 Last Admin: 02/10/18 08:37 Dose: 50 mg Sodium Chloride (Nacl Tab) 1 gm PO BID [facility] Stop: 04/02/18 08:59 Last Admin: 02/10/18 08:36 Dose: 1 gm Valproate Sodium (Depakene) 1,000 mg PO BID [facility] PRN Reason: Protocol Stop: 04/06/18 08:59 Last Admin: 02/10/18 08:35 Dose: 1,000 mg Valproate Sodium (Depakene) 500 mg PO HS [facility] PRN Reason: Protocol Stop: 04/05/18 20:59 Last Admin: 02/09/18 21:31 Dose: 500 mg Zolpidem Tartrate (Ambien) 5 mg PO HS PRN PRN Reason: Insomnia Stop: 04/01/18 19:58 Last Admin: 02/07/18 21:30 Dose: 5 mg General: alert HEENT: NC/AT, PERRLA Neck: Supple Lungs: CTAB Cardiovascular: RRR, Normal S1, Normal S2, without murmur Abdomen: soft, non-tender, non-distended, positive bowel sound Neurological: alert, bedbound - Procedures Procedures: Procedures Procedure Code Date COLONOSCOPY W/LESION REMOVAL 63195 09/17/17 EXCISION OF ASCENDING COLON, ENDO, DIAGN [id number] 09/17/17 EXCISION OF RECTUM, ENDO [id number] 09/17/17 EXCISION OF TRANSVERSE COLON, ENDO [id number] 09/17/17 EXCISION OF TRANSVERSE COLON, ENDO, DIAGN [id number] 09/17/17 GROUP PSYCHOTHERAPY 78282 12/06/15 GROUP PSYCHOTHERAPY GZHZZZZ 12/06/15 OTHER GROUP THERAPY 94.44 06/02/14 RECREATIONAL THERAPY 93.81 07/28/11 Internal Medicine Assmt/Plan - Assessment Assessment: mild protein calorie malnutrition generalized weakness DJD hypercholesteremia schizoaffective disorder parkinson's - Plan Plan: swallow eval fall precaution cont on sinemet dw rn Nutritional Asmnt/Malnutr-PDOC - Dietary Evaluation Malnutrition Findings (Please click <Entered> for more info): Nutritional Asmnt/Malnutrition Start: 02/05/18 16: 47 Text: Status: Complete Freq: Document 02/05/18 16:48 SHANTEL (Rec: 02/05/18 16:52 SHANTEL [facility]) Nutritional Asmnt/Malnutrition Patient General Information Nutritional Screening Moderate Risk Diagnosis psychosis Pertinent Medical Hx/Surgical Hx CVA, DJD, hypersholesterolemia , schizoaffective disorder, parkinson's high ammonia level , [employer] shunt, 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 Current Diet Order/ Nutrition Support pureed Pertinent Medications colace, cephulac, theragran, protonix, serqoeul, nacl Pertinent Labs no nutrition labs Nutritional Hx/Data Height 6 ft Height (Calculated Centimeters) 182.9 Current Weight (lbs) 223 lb Weight (Calculated Kilograms) 101.2 Weight (Calculated Grams) 099263.1 [place] Body Weight 178 Body Mass Index (BMI) 30.2 Weight Status Obese GI Symptoms GI Symptoms None Difficult in: None Skin Integrity/Comment: redness Current %PO Good (75-100%) Estimated Nutritional Goals BEE in Kcals: Adj wt of IBW Calories/Kcals/Kg 25-30 Kcals Calculated [id number] Protein: Adj wt of IBW Protein g/k Protein Calculated 86 Fluid: ml 2150-2580ml (1ml/kcal) Nutritional Problem No current Nutrition Prob Problem N/A Intervention/Recommendation Comments 1. Continue with current diet as ordered. 2. Monitor PO intake, wt, labs and skin integrity 3. F/U as low risk in 7d ays, 4/10 Expected Outcomes/Goals Expected Outcomes/Goals 1. PO intake to meet at least 75% of nutritional needs. 2. Wt stability, skin to remain intact, labs to approach WNL.
[2018-02-10] MEDS: Atorvastatin Calcium 10 MG TAB PO SCH (21:18)
--- NOTE | 2018-02-10 22:24 | Progress Notes ---
DATE: 02/10/2018 SUBJECTIVE: Staff was spoken to. The patient is interviewed. Mood is noted to be less irritable. Affect is appropriate. The patient's impulsivity has been coming under control. No side effects to the medications are noted. The patient has been able to participate in the groups at this time and his sexualized behavior is a concern, but the patient could be redirectable today. ASSESSMENT: The patient's mood swings are coming under control. PLAN: To continue the patient with the supportive therapy and followup. JOB# [id number]
[2018-02-11] MEDS: Pantoprazole 40 mg EC Tab PO SCH (06:43)
[2018-02-11] MEDS: Lactulose 10 Gm/15 mL 30mL UDC PO SCH ×2 (08:44→14:29)
[2018-02-11] MEDS: Aspirin 81mg Chewable Tab PO SCH (08:45)
[2018-02-11] MEDS: Benztropine 1 MG TAB PO SCH (08:45)
[2018-02-11] MEDS: Fenofibrate, Micronized 134 mg Cap PO SCH (08:46)
[2018-02-11] MEDS: Multivitamin Tab PO SCH (08:46)
--- NOTE | 2018-02-11 13:15 | Internal Medicine Prog Note ---
Internal Medicine Subjective - Subjective Service Date: 02/11/18 Patient is:: awake, verbal Per staff patient has:: no adverse event, eating well, agitated, tolerating meds Internal Medicine Objective - Results Recent Labs: Laboratory Last Values Valproic Acid 52.8 ug/mL (50.0-100.0) 02/03/18 14:30 Carbamazepine 10.8 ug/ml (4.0-12.0) 02/03/18 14:30 - Physical Exam Vitals and I&O: Vital Signs Temp 96.4 F 02/11/18 12:03 Pulse 58 02/11/18 12:03 Resp 19 02/11/18 12:03 BP 116/64 02/11/18 12:03 Pulse Ox 95 02/11/18 12:03 Intake & Output 02/10/18 02/11/18 02/11/18 18:59 06:59 18:59 Intake Total 2200 120 Balance 2200 120 Intake: Oral 2200 120 Other: # Voids 4 # Bowel Movements 0 Active Medications: Current Medications Acetaminophen (Tylenol) 650 mg PO Q4HR PRN PRN Reason: Pain Or Fever above 101 Stop: 04/01/18 19:59 Al Hydrox/Mg Hydrox/Simethicone (Maalox) 30 ml PO Q6HR PRN PRN Reason: Dyspepsia Stop: 04/01/18 19:59 Last Admin: 02/11/18 09:27 Dose: 30 ml Albuterol Sulfate (Albuterol 2.5mg/3ml Neb Ud) 2.5 mg HHN Q2HR PRN PRN Reason: Shortness of Breath or Wheeze Stop: 04/01/18 19:59 Aspirin (Aspirin Chewable) 81 mg PO DAILY [facility] Stop: 04/02/18 08:59 Last Admin: 02/11/18 08:45 Dose: 81 mg Atorvastatin Calcium (Lipitor) 20 mg PO HS [facility]PL[facility] PRN Reason: Protocol Stop: 04/01/18 20:59 Last Admin: 02/10/18 21:18 Dose: 20 mg Benztropine Mesylate (Cogentin) 1 mg PO BID [facility] Stop: 04/02/18 08:59 Last Admin: 02/11/18 08:45 Dose: 1 mg Buspirone HCl (Buspar) 10 mg PO BID [facility] PRN Reason: Protocol Stop: 04/02/18 08:59 Last Admin: 02/11/18 08:45 Dose: 10 mg Carbamazepine (Tegretol) 600 mg PO Q12HR [facility] PRN Reason: Protocol Stop: 04/02/18 20:59 Last Admin: 02/11/18 08:46 Dose: 600 mg Carbidopa/Levodopa (Sinemet 25mg-100 Mg) 1 tab PO TID [facility] Stop: 04/01/18 20:59 Last Admin: 02/11/18 08:45 Dose: 1 tab Docusate Sodium (Colace) 100 mg PO DAILY [facility] Stop: 04/02/18 08:59 Last Admin: 02/11/18 08:45 Dose: 100 mg Fenofibrate (Tricor) 134 mg PO DAILY [facility] Stop: 04/02/18 08:59 Last Admin: 02/11/18 08:46 Dose: 134 mg Guaifenesin (Robitussin) 100 mg PO Q4H PRN PRN Reason: Cough or Congestion Stop: 04/01/18 19:59 Last Admin: 02/02/18 22:31 Dose: 100 mg Ipratropium [place] (Atrovent Neb 0.5mg/2.5ml) 0.5 mg HHN Q2HR PRN PRN Reason: Shortness of Breath or Wheeze Stop: 04/01/18 19:59 Lactulose (Cephulac) 30 gm PO QID [facility] Stop: 04/02/18 12:59 Last Admin: 02/11/18 08:44 Dose: 30 gm Lorazepam (Ativan) 0.5 mg PO Q4HR PRN; Protocol PRN Reason: Anxiety Stop: 04/01/18 19:40 Losartan Potassium (Cozaar) 100 mg PO DAILY [facility] Stop: 04/02/18 08:59 Last Admin: 02/11/18 08:48 Dose: 100 mg Magnesium Hydroxide (Milk Of Magnesia) 30 ml PO HS PRN PRN Reason: Constipation Multivitamins/Vitamin C (Theragran) 1 tab PO DAILY [facility] Stop: 04/02/18 08:59 Last Admin: 02/11/18 08:46 Dose: 1 tab Oxybutynin Chloride (Ditropan) 5 mg PO HS [facility] Stop: 04/01/18 20:59 Last Admin: 02/10/18 21:18 Dose: 5 mg Pantoprazole Sodium (Protonix) 40 mg PO QDAC REPLACED BY [facility] Stop: 04/02/18 07:29 Last Admin: 02/11/18 06:43 Dose: 40 mg Quetiapine Fumarate (Seroquel) 50 mg PO TID [facility] PRN Reason: Protocol Stop: 04/09/18 20:59 Last Admin: 02/11/18 08:45 Dose: 50 mg Sodium Chloride (Nacl Tab) 1 gm PO BID [facility] Stop: 04/02/18 08:59 Last Admin: 02/11/18 08:45 Dose: 1 gm Valproate Sodium (Depakene) 1,000 mg PO BID [facility] PRN Reason: Protocol Stop: 04/06/18 08:59 Last Admin: 02/11/18 09:28 Dose: 1,000 mg Valproate Sodium (Depakene) 500 mg PO HS [facility] PRN Reason: Protocol Stop: 04/05/18 20:59 Last Admin: 02/10/18 21:00 Dose: Not Given Zolpidem Tartrate (Ambien) 5 mg PO HS PRN PRN Reason: Insomnia Stop: 04/01/18 19:58 Last Admin: 02/07/18 21:30 Dose: 5 mg General: alert HEENT: NC/AT, PERRLA Neck: Supple Lungs: CTAB Cardiovascular: RRR, Normal S1, Normal S2, without murmur Abdomen: soft, non-tender, non-distended, positive bowel sound Neurological: alert, bedbound - Procedures Procedures: Procedures Procedure Code Date COLONOSCOPY W/LESION REMOVAL 88907 09/17/17 EXCISION OF ASCENDING COLON, ENDO, DIAGN [id number] 09/17/17 EXCISION OF RECTUM, ENDO [id number] 09/17/17 EXCISION OF TRANSVERSE COLON, ENDO [id number] 09/17/17 EXCISION OF TRANSVERSE COLON, ENDO, DIAGN [id number] 09/17/17 GROUP PSYCHOTHERAPY 49873 12/06/15 GROUP PSYCHOTHERAPY GZHZZZZ 12/06/15 OTHER GROUP THERAPY 94.44 06/02/14 RECREATIONAL THERAPY 93.81 07/28/11 Internal Medicine Assmt/Plan - Assessment Assessment: mild protein calorie malnutrition generalized weakness DJD hypercholesteremia schizoaffective disorder parkinson's - Plan Plan: swallow eval fall precaution cont on sinemet dw rn Nutritional Asmnt/Malnutr-PDOC - Dietary Evaluation Malnutrition Findings (Please click <Entered> for more info): Nutritional Asmnt/Malnutrition Start: 02/05/18 16: 47 Text: Status: Complete Freq: Document 02/05/18 16:48 SHANTEL (Rec: 02/05/18 16:52 SHANTEL [id number]) Nutritional Asmnt/Malnutrition Patient General Information Nutritional Screening Moderate Risk Diagnosis psychosis Pertinent Medical Hx/Surgical Hx CVA, DJD, hypersholesterolemia , schizoaffective disorder, parkinson's high ammonia level , [employer] shunt, 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 Current Diet Order/ Nutrition Support pureed Pertinent Medications colace, cephulac, theragran, protonix, serqoeul, nacl Pertinent Labs no nutrition labs Nutritional Hx/Data Height 6 ft Height (Calculated Centimeters) 182.9 Current Weight (lbs) 223 lb Weight (Calculated Kilograms) 101.2 Weight (Calculated Grams) 031671.1 [place] Body Weight 178 Body Mass Index (BMI) 30.2 Weight Status Obese GI Symptoms GI Symptoms None Difficult in: None Skin Integrity/Comment: redness Current %PO Good (75-100%) Estimated Nutritional Goals BEE in Kcals: Adj wt of IBW Calories/Kcals/Kg 25-30 Kcals Calculated 5143-0537 Protein: Adj wt of IBW Protein g/k Protein Calculated 86 Fluid: ml 2150-2580ml (1ml/kcal) Nutritional Problem No current Nutrition Prob Problem N/A Intervention/Recommendation Comments 1. Continue with current diet as ordered. 2. Monitor PO intake, wt, labs and skin integrity 3. F/U as low risk in 7d ays, 4/10 Expected Outcomes/Goals Expected Outcomes/Goals 1. PO intake to meet at least 75% of nutritional needs. 2. Wt stability, skin to remain intact, labs to approach WNL.
--- NOTE | 2018-02-12 01:58 | Progress Notes ---
DATE: 02/11/2018 PSYCHIATRIC PROGRESS NOTE TIME PATIENT SEEN: Staff was spoken to. The patient is interviewed. Mood is noted to be less irritable. Affect is appropriate. Not suicidal or homicidal. Insight and judgment are noted to be improving. Impulse control seems to be fair. Coping skills are also noted to be fair. The patient could be redirectable at this time. No sexualized behavior is reported. Mood swings are coming under control. ASSESSMENT: The patient is stabilizing. PLAN: To discharge the patient today for followup on outpatient basis. JOB# [id number]
== END 2018-02-11 15:42 | DRG 885 ==
LOC: GERO 17:52
DX: F25.9 Schizoaffective disorder, unspecified (principal); E44.1 Mild protein-calorie malnutrition; M19.90 Unspecified osteoarthritis, unspecified site; E78.5 Hyperlipidemia, unspecified; G20 Parkinson's disease; I10 Essential (primary) hypertension; G40.909 Epilepsy, unspecified, not intractable, without status epilepticus; K74.60 Unspecified cirrhosis of liver; F29 Unspecified psychosis not due to a substance or known physiological condition; E78.00 Pure hypercholesterolemia, unspecified; Z88.0 Allergy status to penicillin; Z86.73 Personal history of transient ischemic attack (TIA), and cerebral infarction without residual deficits; Z68.30 Body mass index [BMI] 30.0-30.9, adult
CPT/HCPCS: 36415-UA; 80156-TC; 80164-TC; 90899; 94760; G0410; J1644; X3401; X4304; Z7610

== ENCOUNTER 2018-04-11 22:38 | Inpatient (IN) | payer MEDICARE, MEDICAID ==
--- NOTE | 2018-04-11 22:46 | ED Physician Chart ---
ED Chief Complaint/HPI - Patient Information Date Seen:: 04/11/18 Time Seen:: 22:20 Chief Complaint:: blood in stool History of Present Illness:: Patient states that the care providers at his longterm facility noted blood in his stool tonight. Patient denies abdominal pain. He has in the past had episodes of blood in the stool. Allergies:: Allergies Allergy/AdvReac Type Severity Reaction Status Date / Time Penicillins Allergy Verified 07/19/17 16:51 Historian:: Patient, EMS Review:: Nurse's Note Reviewed, Transfer documents Reviewed ED Review of Systems - Review of Systems General/Constitutional: No fever, No chills, No weight loss, No weakness, No diaphoresis, No edema, No loss of appetite Skin: No skin lesions, No rash, No bruising Head: No headache, No light-headedness Eyes: No loss of vision, No pain, No diplopia ENT: No earache, No nasal drainage, No sore throat, No tinnitus Neck: No neck pain, No swelling, No thyromegaly, No stiffness, No mass noted Cardio Vascular: No chest pain, No palpitations, No PND, No orthopnea, No edema Pulmonary: No SOB, No cough, No sputum, No wheezing GI: No nausea, No vomiting, No diarrhea, No pain, No melena, Hematochezia, No constipation, No hematemesis G/U: No dysuria, No frequency, No hematuria Musculoskeletal: No bone or joint pain, No back pain, No muscle pain Endocrine: No polyuria, No polydipsia Psychiatric: No prior psych history, No depression, No anxiety, No suicidal ideation Hematopoietic: No bruising, No lymphadenopathy Allergic/Immuno: No urticaria, No angioedema Neurological: No syncope, No focal symptoms, No weakness, No paresthesia, No headache, No seizure, No dizziness, No confusion, No vertigo ED Past Medical History - Past Medical History Past Medical History: HTN, Asthma/COPD, Dyslipidemia, Other (hyponatremia; Parkinson's disease; anemia; upper lipidemia; pruritus) Family History: None Social History: Care Facility, Other (former smoker; never consumed alcohol) Surgical History: other (trach following a head injury for which he was in a coma for 2 months) Psychiatricy History: None Medication: Reviewed Family Medical History - Family Member Mother History Unknown: Yes ED Physical Exam - Physical Examination General/Constitutional: Awake, Well-developed, well-nourished Head: Atraumatic Eyes: Lids, conjuctiva normal, PERRL Skin: Nl inspection ENMT: External ears, nose nl Neck: No nuchal rigidity Respiratory: Clear to Auscultation, No Wheeze/Rhonchi/Rales Cardio Vascular: RRR, No murmur, gallop, rubs GI: No tenderness/rebounding/guarding, No organomegaly, No hernia, Normal BS's, Nondistended, No mass/bruits, No McBurney tenderness, Rectum exam nl Other GI comments:: On digital rectal exam there is no stool to Hemoccult : No CVA tenderness Extremities: Normal digits & nails Neuro/Psych: No focal deficits ED Labs/Radiology/EKG Results - Lab Results Results: Laboratory Results - last 24 hr 04/11/18 04/11/18 22:50 22:50 WBC 5.1 RBC 3.65 L Hgb 11.3 L Hct 33.6 L MCV 91.9 MCH 31.0 MCHC Differential 33.8 RDW 16.3 Plt Count 285 MPV 7.4 Neutrophils % 46.3 Lymphocytes % 39.4 Monocytes % 9.4 Eosinophils % 3.9 Basophils % 1.0 Sodium 138 D Potassium 4.4 Chloride 105 Carbon Dioxide 26.7 Anion Gap 10.7 BUN 14 Creatinine 0.9 Est GFR ( Amer) > 60.0 Est GFR (Non-Af Amer) > 60.0 BUN/Creatinine Ratio 15.6 Glucose 104 Calcium 9.8 ED Septic Shock - . Is Septic Shock (SBP<90, OR Lactate>4 mmol\L) present?: No ED Reassessment (Disposition) - Reassessment Reassessment Condition:: Unchanged - Diagnosis Diagnosis:: Rectal bleeding by history; anemia - Aftercare/Follow up Instructions Aftercare/Follow-Up Instructions:: Refer to Discharge Instructions - Patient Disposition Admitted to:: Med/Surg Spoke to:: Juno Harden Admitting Medical Physician:: Juno Harden Condition at Disposition:: Stable, Unchanged
[2018-04-11 23:03] LABS: % EOSINOPHILS 3.9 % (0.0-5.0); % LYMPHOCYTES 39.4 % (20.0-50.0); % MONOCYTES 9.4 % (2.0-10.0); % NEUTROPHILS 46.3 % (40.0-80.0); BASOPHILE ABSOLUTE 0.1 Th/cumm (0-0.2); EOSINOPHILE ABSOLUTE 0.2 Th/cmm (0.1-0.4); HEMATOCRIT 33.6 % (41.0-60); HEMOGLOBIN 11.3 gm/dL (12-16); MEAN CELL VOLUME 91.9 fl (80-99); MEAN CORPUSCULAR HGB CONC 33.8 pg (28.0-36.0); MEAN PLATELET VOLUME 7.4 fl; MONOCYTE ABSOLUTE 0.5 Th/cmm (0.3-1.0); NEUTROPHILE ABSOLUTE 2.3 Th/cmm (1.8-8.0); PLATELET COUNT 285 Th/cmm (150-400); RED BLOOD COUNT 3.65 Mil/cmm (3.80-5.80); RED CELL DISTRIBUTION WIDTH 16.3 % (11.5-20.0); WHITE BLOOD COUNT 5.1 Th/cmm (4.8-10.8)
[2018-04-11 23:18] LABS: ANION GAP 10.7 (7.0-16.0); BUN - UREA NITROGEN 14 mg/dL (7-25); CALCIUM SERUM 9.8 mg/dL (8.6-10.3); CARBON DIOXIDE 26.7 mEq/L (21.0-31.0); CHLORIDE 105 mEq/L (98-107); CREATININE - SERUM 0.9 mg/dL (0.7-1.3); GFR AFRICAN-AMERICAN > 60.0 ml/min (>90); GFR NON AFRICAN-AMERICAN > 60.0 ml/min; GLUCOSE 104 mg/dL (70-105); POTASSIUM SERUM 4.4 mEq/L (3.5-5.1)
[2018-04-11 23:24] LABS: SODIUM SERUM 138 mEq/L (136-145)
[2018-04-11 23:35] LABS: INR 1.09 (0.5-1.4); PROTHROMBIN TIME (TEST) 11.3 SECONDS (9.5-11.5)
[2018-04-12] MEDS ORDERED: Ipratropium Neb 0.5 mg/2.5 mL UD HHN PRN (00:03)
[2018-04-12] MEDS ORDERED: Maalox 30 mL Cup PO PRN (00:05)
[2018-04-12 05:40] LABS: % BASOPHILS 0.6 % (0.0-2.0); % EOSINOPHILS 2.5 % (0.0-5.0); % MONOCYTES 8.5 % (2.0-10.0); % NEUTROPHILS 69.4 % (40.0-80.0); BASOPHILE ABSOLUTE 0.1 Th/cumm (0-0.2); EOSINOPHILE ABSOLUTE 0.2 Th/cmm (0.1-0.4); HEMATOCRIT 31.3 % (41.0-60); HEMOGLOBIN 10.5 gm/dL (12-16); LYMPHOCYTE ABSOLUTE 1.8 Th/cmm (1.5-3.0); MEAN CELL VOLUME 91.5 fl (80-99); MEAN CORPUSCULAR HEMOGLOBIN 30.7 pg (27.0-31.0); MEAN CORPUSCULAR HGB CONC 33.5 pg (28.0-36.0); MEAN PLATELET VOLUME 7.5 fl; MONOCYTE ABSOLUTE 0.8 Th/cmm (0.3-1.0); NEUTROPHILE ABSOLUTE 6.7 Th/cmm (1.8-8.0); PLATELET COUNT 250 Th/cmm (150-400); RED BLOOD COUNT 3.42 Mil/cmm (3.80-5.80); RED CELL DISTRIBUTION WIDTH 16.6 % (11.5-20.0); WHITE BLOOD COUNT 9.6 Th/cmm (4.8-10.8)
[2018-04-12 05:55] LABS: INR 1.14 (0.5-1.4)
[2018-04-12] MEDS ORDERED: Pantoprazole 40 mg EC Tab PO SCH (07:30)
[2018-04-12] MEDS: Benztropine 1 MG TAB PO SCH ×2 (08:46→17:19)
[2018-04-12] MEDS: Fenofibrate, Micronized 134 mg Cap PO SCH (08:46)
[2018-04-12] MEDS: Multivitamin Tab PO SCH (08:48)
[2018-04-12] MEDS: D5-0.45NS 1,000 ML IV SCH ×2 (08:50→21:19)
[2018-04-12] MEDS: Lactulose 10 Gm/15 mL 30mL UDC PO SCH ×4 (08:51→20:59)
[2018-04-12] MEDS ORDERED: Pneumococcal Vaccine 0.5 mL Vial IM ONE (09:00)
--- NOTE | 2018-04-12 11:25 | Internal Medicine Prog Note ---
Internal Medicine Subjective - Subjective Service Date: 04/12/18 ([facility] [id number]) Internal Medicine Objective - Results Result Diagrams: 04/12/18 05:05 04/11/18 22:50 Recent Labs: Laboratory Last Values WBC 9.6 Th/cmm (4.8-10.8) 04/12/18 05:05 RBC 3.42 Mil/cmm (3.80-5.80) L 04/12/18 05:05 Hgb 10.5 gm/dL (12-16) L 04/12/18 05:05 Hct 31.3 % (41.0-60) L 04/12/18 05:05 MCV 91.5 fl (80-99) 04/12/18 05:05 MCH 30.7 pg (27.0-31.0) 04/12/18 05:05 MCHC Differential 33.5 pg (28.0-36.0) 04/12/18 05:05 RDW 16.6 % (11.5-20.0) 04/12/18 05:05 Plt Count 250 Th/cmm (150-400) 04/12/18 05:05 MPV 7.5 fl 04/12/18 05:05 Neutrophils % 69.4 % (40.0-80.0) 04/12/18 05:05 Lymphocytes % 19.0 % (20.0-50.0) L 04/12/18 05:05 Monocytes % 8.5 % (2.0-10.0) 04/12/18 05:05 Eosinophils % 2.5 % (0.0-5.0) 04/12/18 05:05 Basophils % 0.6 % (0.0-2.0) 04/12/18 05:05 PT 12.0 SECONDS (9.5-11.5) H 04/12/18 05:05 INR 1.14 (0.5-1.4) 04/12/18 05:05 PTT (Actin FS) 24.3 SECONDS (26.0-38.0) L 04/12/18 05:05 Sodium 138 mEq/L (136-145) D 04/11/18 22:50 Potassium 4.4 mEq/L (3.5-5.1) 04/11/18 22:50 Chloride 105 mEq/L (98-107) 04/11/18 22:50 Carbon Dioxide 26.7 mEq/L (21.0-31.0) 04/11/18 22:50 Anion Gap 10.7 (7.0-16.0) 04/11/18 22:50 BUN 14 mg/dL (7-25) 04/11/18 22:50 Creatinine 0.9 mg/dL (0.7-1.3) 04/11/18 22:50 Est GFR ( Amer) > 60.0 ml/min (>90) 04/11/18 22:50 Est GFR (Non-Af Amer) > 60.0 ml/min 04/11/18 22:50 BUN/Creatinine Ratio 15.6 04/11/18 22:50 Glucose 104 mg/dL (70-105) 04/11/18 22:50 Calcium 9.8 mg/dL (8.6-10.3) 04/11/18 22:50 Stool Occult Blood POSITIVE (NEGATIVE) H 04/11/18 23:15 - Physical Exam Vitals and I&O: Vital Signs Temp 97.3 F 04/12/18 07:52 Pulse 62 04/12/18 08:48 Resp 20 04/12/18 07:56 BP 105/70 04/12/18 08:48 Pulse Ox 96 04/12/18 07:56 Intake & Output 04/11/18 04/12/18 04/12/18 18:59 06:59 18:59 Weight (lbs) 220 lb Other: Weight Source Estimated Active Medications: Current Medications Acetaminophen (Tylenol) 650 mg PO Q4H PRN PRN Reason: Pain Or Fever above 101 Stop: 06/11/18 00:04 Al Hydrox/Mg Hydrox/Simethicone (Maalox) 30 ml PO Q6H PRN PRN Reason: Dyspepsia Stop: 06/11/18 00:04 Atorvastatin Calcium (Lipitor) 20 mg PO HS [facility]; Protocol Stop: 06/11/18 20:59 Benztropine Mesylate (Cogentin) 1 mg PO BID [facility] Stop: 06/11/18 08:59 Last Admin: 04/12/18 08:46 Dose: 1 mg Carbidopa/Levodopa (Sinemet 25mg-100 Mg) 1 tab PO TID [facility] Stop: 06/11/18 08:59 Last Admin: 04/12/18 08:48 Dose: 1 tab Docusate Sodium (Colace) 100 mg PO DAILY [facility] Stop: 06/11/18 08:59 Last Admin: 04/12/18 08:48 Dose: 100 mg Fenofibrate (Tricor) 134 mg PO DAILY [facility] Stop: 06/11/18 08:59 Last Admin: 04/12/18 08:46 Dose: 134 mg Dextrose/Sodium Chloride (D5-0.45ns) 1,000 mls @ 80 mls/hr IV .[id number] [facility] Stop: 06/11/18 00:14 Last Admin: 04/12/18 08:50 Dose: 80 mls/hr Ipratropium [place] (Atrovent Neb 0.5mg/2.5ml) 0.5 mg HHN Q2HRT PRN PRN Reason: Shortness of Breath or Wheeze Stop: 06/11/18 00:02 Lactulose (Cephulac) 30 gm PO QID [facility] Stop: 06/11/18 08:59 Last Admin: 04/12/18 08:51 Dose: 30 gm Levocarnitine (Carnitor) 990 mg PO TID [facility] Stop: 06/11/18 08:59 Last Admin: 04/12/18 08:52 Dose: 990 mg Losartan Potassium (Cozaar) 100 mg PO DAILY [facility] Stop: 06/11/18 08:59 Last Admin: 04/12/18 08:48 Dose: Not Given Multivitamins/Vitamin C (Theragran) 1 tab PO DAILY [facility] Stop: 06/11/18 08:59 Last Admin: 04/12/18 08:48 Dose: 1 tab Ondansetron HCl (Zofran) 4 mg IV Q8H PRN PRN Reason: Nausea / Vomiting Stop: 06/11/18 00:04 Oxybutynin Chloride (Ditropan) 5 mg PO HS [facility] Stop: 06/11/18 20:59 Pantoprazole Sodium (Protonix) 40 mg IVP BID [facility] Stop: 06/11/18 08:59 Last Admin: 04/12/18 08:46 Dose: 40 mg Quetiapine Fumarate (Seroquel) 50 mg PO TID [facility]; Protocol Stop: 06/11/18 08:59 Last Admin: 04/12/18 08:48 Dose: 50 mg Sodium Chloride (Nacl Tab) 1 gm PO BID [facility] Stop: 06/11/18 08:59 Last Admin: 04/12/18 08:48 Dose: 1 gm Valproate Sodium (Depakene) 1,000 mg PO BID [facility]; Protocol Stop: 06/11/18 08:59 Valproate Sodium (Depakene) 500 mg PO HS [facility]; Protocol Stop: 06/11/18 20:59 - Procedures Procedures: Procedures Procedure Code Date COLONOSCOPY W/LESION REMOVAL 53646 09/17/17 EXCISION OF ASCENDING COLON, ENDO, DIAGN [id number] 09/17/17 EXCISION OF RECTUM, ENDO [id number] 09/17/17 EXCISION OF TRANSVERSE COLON, ENDO [id number] 09/17/17 EXCISION OF TRANSVERSE COLON, ENDO, DIAGN [id number] 09/17/17 GROUP PSYCHOTHERAPY 94047 12/06/15 GROUP PSYCHOTHERAPY GZHZZZZ 12/06/15 OTHER GROUP THERAPY 94.44 06/02/14 RECREATIONAL THERAPY 93.81 07/28/11
--- NOTE | 2018-04-12 14:53 | History & Physical ---
ADMIT DATE: 04/12/2018 CHIEF COMPLAINT: Blood in stool. HISTORY OF PRESENT ILLNESS: This is a 67-year-old male who is well known to me from [facility], who has a 1-day history of blood in stool. The patient denies any abdominal pain. The patient did not have any fevers at the halfway. For further management, the patient is now admitted. PAST MEDICAL HISTORY: CVA, DJD, hypercholesterolemia, schizoaffective disorder, Parkinson's, high ammonia level. 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 ALLERGIES: PENICILLIN. MEDICATIONS: Tylenol, aspirin, Lipitor, Cogentin, Sinemet, Depakote, lactulose, magnesium, multivitamin, Ditropan, BuSpar. FAMILY HISTORY: Noncontributory. SOCIAL HISTORY: The patient is a halfway resident, requiring 24-hour nursing care. REVIEW OF SYSTEMS: GENERAL: Denies any fevers and chills. CARDIOVASCULAR: Denies chest pain. RESPIRATORY: Denies shortness of breath. GASTROINTESTINAL: Denies nausea, vomiting, or abdominal pain. Complains of blood in stool. GENITOURINARY: Denies increased frequency or dysuria. NEUROLOGIC: No headaches, seizures, or syncope. All other systems are reviewed and are negative. PHYSICAL EXAMINATION: GENERAL: Elderly male, awake, alert, in no apparent distress. VITAL SIGNS: Temperature 97.0, heart rate 62, blood pressure 105/70, respirations 18, O2 97%. HEENT: Head; normocephalic, atraumatic. NECK: Supple. No mass. LUNGS: Clear bilaterally. ABDOMEN: Soft, nontender. LABORATORY DATA: WBC 9.6, H and H 10.5 and 31.3, platelet of 250. The patient had a stool for occult blood, it is positive. ASSESSMENT: Gastrointestinal bleed, generalized weakness, DJD, hypercholesterolemia, schizoaffective disorder, Parkinson's. PLAN: We will get GI consultation. Keep patient on a full liquid diet. Monitor patient's H and H, IV fluids for hydration. Protonix 40 mg IV b.i.d. We will continue to monitor this patient. JOB# [id number]
[2018-04-12 20:02] LABS: ALB/GLOB RATIO 1.2 (1.0-1.8); ALBUMIN 3.6 gm/dL (4.2-5.5); ALKALINE PHOSPHATASE 48 U/L (34-104); BILIRUBIN,DIRECT 0.15 mg/dL (0.0-0.2); BILIRUBIN,TOTAL 0.4 mg/dL (0.3-1.0); SGOT 10 U/L (13-39); SGPT/ALT < 3 U/L (7-52); TOTAL PROTEIN,SERUM 6.6 gm/dL (6.0-8.3)
[2018-04-12] MEDS: Atorvastatin Calcium 10 MG TAB PO SCH (20:56)
[2018-04-13 05:59] LABS: % LYMPHOCYTES 38.6 % (20.0-50.0); % MONOCYTES 10.1 % (2.0-10.0); % NEUTROPHILS 46.3 % (40.0-80.0); BASOPHILE ABSOLUTE 0.1 Th/cumm (0-0.2); EOSINOPHILE ABSOLUTE 0.2 Th/cmm (0.1-0.4); HEMATOCRIT 32.6 % (41.0-60); HEMOGLOBIN 10.9 gm/dL (12-16); LYMPHOCYTE ABSOLUTE 2.3 Th/cmm (1.5-3.0); MEAN CELL VOLUME 90.8 fl (80-99); MEAN CORPUSCULAR HEMOGLOBIN 30.4 pg (27.0-31.0); MEAN CORPUSCULAR HGB CONC 33.5 pg (28.0-36.0); MEAN PLATELET VOLUME 7.6 fl; MONOCYTE ABSOLUTE 0.6 Th/cmm (0.3-1.0); NEUTROPHILE ABSOLUTE 2.8 Th/cmm (1.8-8.0); PLATELET COUNT 259 Th/cmm (150-400); RED BLOOD COUNT 3.59 Mil/cmm (3.80-5.80); RED CELL DISTRIBUTION WIDTH 16.9 % (11.5-20.0)
[2018-04-13 06:15] LABS: ANION GAP 10.9 (7.0-16.0); BUN - UREA NITROGEN 12 mg/dL (7-25); CALCIUM SERUM 8.7 mg/dL (8.6-10.3); CARBON DIOXIDE 23.9 mEq/L (21.0-31.0); CHLORIDE 103 mEq/L (98-107); CREATININE - SERUM 0.7 mg/dL (0.7-1.3); GFR AFRICAN-AMERICAN > 60.0 ml/min (>90); GFR NON AFRICAN-AMERICAN > 60.0 ml/min; GLUCOSE 101 mg/dL (70-105); POTASSIUM SERUM 3.8 mEq/L (3.5-5.1); SODIUM SERUM 134 mEq/L (136-145)
--- NOTE | 2018-04-13 07:34 | Consultation ---
DATE OF CONSULTATION: 04/12/2018 REASON FOR CONSULTATION: Rectal bleeding. HISTORY OF PRESENT ILLNESS: This consult was obtained through the courtesy of Dr. Harden for this 67-year-old whom we have seen this year at [facility] for the same problem. At that time, he underwent endoscopy and colonoscopy. To my recollection, he had some sort of colitis and he had hemorrhoids and possible diverticulosis. The patient was admitted again for blood in the stools. He is complaining of constipation. He denies any abdominal pain. No nausea, vomiting, or hematemesis. PAST MEDICAL HISTORY: Hypertension, hyperlipidemia, Parkinson disease, COPD, asthma, hypertension, and CVA. PAST SURGICAL HISTORY: Tracheostomy . SOCIAL HISTORY: Nonsmoker, alcoholic, IV drug abuser. FAMILY HISTORY: Noncontributory. REVIEW OF SYSTEMS: He had a head injury that resulted in a coma for a couple of months and for which he had tracheostomy before. ALLERGIES: PENICILLIN. MEDICATIONS: The patient is on Tylenol, Maalox, Lipitor, Cogentin, Sinemet, Colace, TriCor, Atrovent, Cephulac, levocarnitine, losartan, Theragran, Zofran, Ditropan, Protonix, Seroquel, and Depakene. PHYSICAL EXAMINATION: GENERAL: The patient is awake, oriented to self and place, in no acute distress. VITAL SIGNS: Blood pressure is 105/70, heart rate of 62, respiratory rate of 20 and temperature of 97.5. HEAD AND NECK: Pupils reactive to light. Extraocular muscles could not be tested. Oral cavity, no lesion. NECK: Supple. CHEST: Good air entry. LUNGS: Clear to auscultation. CARDIOVASCULAR: Regular rate and rhythm. No murmur or gallop. ABDOMEN: Soft, positive bowel sounds. EXTREMITIES: Lower extremities, no edema. CENTRAL NERVOUS SYSTEM: Unable to evaluate. LABORATORY DATA: Hemoglobin 10.5, hematocrit 31.3, white count 9.6, platelets 250. PT is 12 seconds. Stool for occult blood is positive. IMPRESSION: A 67-year-old with gastrointestinal bleed. ASSESSMENT AND PLAN: Gastrointestinal bleed, could be recurrent colitis, could be hemorrhoids. The patient had already endoscopy and colonoscopy this year, so there is no reason to repeat them especially with a hemoglobin of 10.5, so we will continue to monitor. We will transfuse if needed. If there is bleeding, then we will repeat GI workup according to the presentation of the bleeding. Meanwhile, we will continue with PPI. We will add Anusol cream. We may get a CAT scan if there is more bleedings for colitis and we will give stool softener, then further recommendations to follow. Other medical problems such as hypertension, history of CVA, Parkinson disease, etc., as per Dr. Harden. Thank you, Dr. Harden for allowing me to participate in the care of the patient. If you have any further questions, please let me know. JOB# [id number]
--- NOTE | 2018-04-13 08:55 | GI Progress Note ---
Subjective - Review of Systems Subjective: NO GI BLEEDING Objective - Results Result Diagrams: 04/13/18 05:35 04/13/18 05:35 Recent Labs: Laboratory Last Values WBC 6.0 Th/cmm (4.8-10.8) 04/13/18 05:35 RBC 3.59 Mil/cmm (3.80-5.80) L 04/13/18 05:35 Hgb 10.9 gm/dL (12-16) L 04/13/18 05:35 Hct 32.6 % (41.0-60) L 04/13/18 05:35 MCV 90.8 fl (80-99) 04/13/18 05:35 MCH 30.4 pg (27.0-31.0) 04/13/18 05:35 MCHC Differential 33.5 pg (28.0-36.0) 04/13/18 05:35 RDW 16.9 % (11.5-20.0) 04/13/18 05:35 Plt Count 259 Th/cmm (150-400) 04/13/18 05:35 MPV 7.6 fl 04/13/18 05:35 Neutrophils % 46.3 % (40.0-80.0) 04/13/18 05:35 Lymphocytes % 38.6 % (20.0-50.0) 04/13/18 05:35 Monocytes % 10.1 % (2.0-10.0) H 04/13/18 05:35 Eosinophils % 4.0 % (0.0-5.0) 04/13/18 05:35 Basophils % 1.0 % (0.0-2.0) 04/13/18 05:35 PT 12.0 SECONDS (9.5-11.5) H 04/12/18 05:05 INR 1.14 (0.5-1.4) 04/12/18 05:05 PTT (Actin FS) 24.3 SECONDS (26.0-38.0) L 04/12/18 05:05 Sodium 134 mEq/L (136-145) L 04/13/18 05:35 Potassium 3.8 mEq/L (3.5-5.1) 04/13/18 05:35 Chloride 103 mEq/L (98-107) 04/13/18 05:35 Carbon Dioxide 23.9 mEq/L (21.0-31.0) 04/13/18 05:35 Anion Gap 10.9 (7.0-16.0) 04/13/18 05:35 BUN 12 mg/dL (7-25) 04/13/18 05:35 Creatinine 0.7 mg/dL (0.7-1.3) 04/13/18 05:35 Est GFR ( Amer) > 60.0 ml/min (>90) 04/13/18 05:35 Est GFR (Non-Af Amer) > 60.0 ml/min 04/13/18 05:35 BUN/Creatinine Ratio 15.6 04/11/18 22:50 Glucose 101 mg/dL (70-105) 04/13/18 05:35 Calcium 9.8 mg/dL (8.6-10.3) 04/11/18 22:50 Total Bilirubin 0.4 mg/dL (0.3-1.0) 04/12/18 19:30 Direct Bilirubin 0.15 mg/dL (0.0-0.2) 04/12/18 19:30 AST 10 U/L (13-39) L 04/12/18 19:30 ALT < 3 U/L (7-52) L 04/12/18 19:30 Alkaline Phosphatase 48 U/L (34-104) 04/12/18 19:30 Total Protein 6.6 gm/dL (6.0-8.3) 04/12/18 19:30 Albumin 3.6 gm/dL (4.2-5.5) L 04/12/18 19:30 Globulin 3.0 gm/dL 04/12/18 19:30 Albumin/Globulin Ratio 1.2 (1.0-1.8) 04/12/18 19:30 Stool Occult Blood POSITIVE (NEGATIVE) H 04/11/18 23:15 Valproic Acid 25.2 ug/mL (50.0-100.0) L 04/12/18 19:30 - Physical Exam Vitals and I&O: Vital Signs Temp 97.3 F 04/13/18 07:48 Pulse 73 04/13/18 07:48 Resp 19 04/13/18 07:48 BP 115/75 04/13/18 07:48 Pulse Ox 95 04/13/18 07:48 Intake & Output 04/12/18 04/13/18 04/13/18 18:59 06:59 18:59 Intake Total 2678.667 Output Total 2 Balance 2676.667 Weight (lbs) 99.79 kg Intake: Intake, IV Amount 998.667 D5-0.45NS 1,000 ml @ 80 998.667 mls/hr IV .[id number] [facility] Rx #:[id number] Oral 1680 Output: Stool 2 Other: # Voids 2 # Bowel Movements 2 Stool Characteristics Soft Weight Source Bedscale Active Medications: Current Medications Acetaminophen (Tylenol) 650 mg PO Q4H PRN PRN Reason: Pain Or Fever above 101 Stop: 06/11/18 00:04 Al Hydrox/Mg Hydrox/Simethicone (Maalox) 30 ml PO Q6H PRN PRN Reason: Dyspepsia Stop: 06/11/18 00:04 Atorvastatin Calcium (Lipitor) 20 mg PO HS [facility]; Protocol Stop: 06/11/18 20:59 Last Admin: 04/12/18 20:56 Dose: 20 mg Benztropine Mesylate (Cogentin) 1 mg PO BID [facility] Stop: 06/11/18 08:59 Last Admin: 04/12/18 17:19 Dose: 1 mg Carbidopa/Levodopa (Sinemet 25mg-100 Mg) 1 tab PO TID [facility] Stop: 06/11/18 08:59 Last Admin: 04/12/18 20:56 Dose: 1 tab Docusate Sodium (Colace) 100 mg PO DAILY [facility] Stop: 06/11/18 08:59 Last Admin: 04/12/18 08:48 Dose: 100 mg Fenofibrate (Tricor) 134 mg PO DAILY [facility] Stop: 06/11/18 08:59 Last Admin: 04/12/18 08:46 Dose: 134 mg Dextrose/Sodium Chloride (D5-0.45ns) 1,000 mls @ 80 mls/hr IV .[id number] [facility] Stop: 06/11/18 00:14 Last Admin: 04/12/18 21:19 Dose: 80 mls/hr Ipratropium [place] (Atrovent Neb 0.5mg/2.5ml) 0.5 mg HHN Q2HRT PRN PRN Reason: Shortness of Breath or Wheeze Stop: 06/11/18 00:02 Lactulose (Cephulac) 30 gm PO QID [facility] Stop: 06/11/18 08:59 Last Admin: 04/12/18 20:59 Dose: Not Given Levocarnitine (Carnitor) 990 mg PO TID [facility] Stop: 06/11/18 08:59 Last Admin: 04/12/18 21:33 Dose: 990 mg Losartan Potassium (Cozaar) 100 mg PO DAILY [facility] Stop: 06/11/18 08:59 Last Admin: 04/12/18 08:48 Dose: Not Given Multivitamins/Vitamin C (Theragran) 1 tab PO DAILY [facility] Stop: 06/11/18 08:59 Last Admin: 04/12/18 08:48 Dose: 1 tab Ondansetron HCl (Zofran) 4 mg IV Q8H PRN PRN Reason: Nausea / Vomiting Stop: 06/11/18 00:04 Oxybutynin Chloride (Ditropan) 5 mg PO HS [facility] Stop: 06/11/18 20:59 Last Admin: 04/12/18 20:56 Dose: 5 mg Pantoprazole Sodium (Protonix) 40 mg IVP BID [facility] Stop: 06/11/18 08:59 Last Admin: 04/12/18 17:19 Dose: 40 mg Quetiapine Fumarate (Seroquel) 50 mg PO TID [facility]; Protocol Stop: 06/11/18 08:59 Last Admin: 04/12/18 20:56 Dose: 50 mg Sodium Chloride (Nacl Tab) 1 gm PO BID [facility] Stop: 06/11/18 08:59 Last Admin: 04/12/18 17:19 Dose: 1 gm Valproate Sodium (Depakene) 1,000 mg PO BID [facility]; Protocol Stop: 06/11/18 08:59 Valproate Sodium (Depakene) 500 mg PO HS [facility]; Protocol Stop: 06/11/18 20:59 - Procedures Procedures: Procedures Procedure Code Date COLONOSCOPY W/LESION REMOVAL 35604 09/17/17 EXCISION OF ASCENDING COLON, ENDO, DIAGN [id number] 09/17/17 EXCISION OF RECTUM, ENDO [id number] 09/17/17 EXCISION OF TRANSVERSE COLON, ENDO [id number] 09/17/17 EXCISION OF TRANSVERSE COLON, ENDO, DIAGN [id number] 09/17/17 GROUP PSYCHOTHERAPY 75524 12/06/15 GROUP PSYCHOTHERAPY [id number] 12/06/15 OTHER GROUP THERAPY 94.44 06/02/14 RECREATIONAL THERAPY 93.81 07/28/11 Assessment/Plan - Assessment Assessment: 67 YO MALE WITH RECTAL BLEEDING NO ACTIVE BLEEDING AT THIS TIME HAD EGD AND COLO DONE RECENTLY HGB STABLE 1.FOLLOW H/H 2.CONT SUPP CARE 3.RESERVE ENDOSCOPY PROCEDURE FOR THERAPEUTIC INTERVENTION
[2018-04-13] MEDS: Lactulose 10 Gm/15 mL 30mL UDC PO SCH ×4 (09:25→21:01)
[2018-04-13] MEDS: Benztropine 1 MG TAB PO SCH ×2 (09:26→16:15)
[2018-04-13] MEDS: Fenofibrate, Micronized 134 mg Cap PO SCH (09:26)
[2018-04-13] MEDS: Multivitamin Tab PO SCH (09:26)
[2018-04-13] MEDS: D5-0.45NS 1,000 ML IV SCH (09:28)
--- NOTE | 2018-04-13 13:45 | Internal Medicine Prog Note ---
Internal Medicine Subjective - Subjective Patient seen and examined:: with staff, chart reviewed Patient is:: asleep, interactive, eyes closed, agitated, confused Patient Complaints of:: blood in stool Per staff patient has:: no adverse event, poor appetite, unstable gait, noncompliant, tolerating meds Internal Medicine Objective - Results Result Diagrams: 04/13/18 05:35 04/13/18 05:35 Recent Labs: Laboratory Last Values WBC 6.0 Th/cmm (4.8-10.8) 04/13/18 05:35 RBC 3.59 Mil/cmm (3.80-5.80) L 04/13/18 05:35 Hgb 10.9 gm/dL (12-16) L 04/13/18 05:35 Hct 32.6 % (41.0-60) L 04/13/18 05:35 MCV 90.8 fl (80-99) 04/13/18 05:35 MCH 30.4 pg (27.0-31.0) 04/13/18 05:35 MCHC Differential 33.5 pg (28.0-36.0) 04/13/18 05:35 RDW 16.9 % (11.5-20.0) 04/13/18 05:35 Plt Count 259 Th/cmm (150-400) 04/13/18 05:35 MPV 7.6 fl 04/13/18 05:35 Neutrophils % 46.3 % (40.0-80.0) 04/13/18 05:35 Lymphocytes % 38.6 % (20.0-50.0) 04/13/18 05:35 Monocytes % 10.1 % (2.0-10.0) H 04/13/18 05:35 Eosinophils % 4.0 % (0.0-5.0) 04/13/18 05:35 Basophils % 1.0 % (0.0-2.0) 04/13/18 05:35 PT 12.0 SECONDS (9.5-11.5) H 04/12/18 05:05 INR 1.14 (0.5-1.4) 04/12/18 05:05 PTT (Actin FS) 24.3 SECONDS (26.0-38.0) L 04/12/18 05:05 Sodium 134 mEq/L (136-145) L 04/13/18 05:35 Potassium 3.8 mEq/L (3.5-5.1) 04/13/18 05:35 Chloride 103 mEq/L (98-107) 04/13/18 05:35 Carbon Dioxide 23.9 mEq/L (21.0-31.0) 04/13/18 05:35 Anion Gap 10.9 (7.0-16.0) 04/13/18 05:35 BUN 12 mg/dL (7-25) 04/13/18 05:35 Creatinine 0.7 mg/dL (0.7-1.3) 04/13/18 05:35 Est GFR ( Amer) > 60.0 ml/min (>90) 04/13/18 05:35 Est GFR (Non-Af Amer) > 60.0 ml/min 04/13/18 05:35 BUN/Creatinine Ratio 15.6 04/11/18 22:50 Glucose 101 mg/dL (70-105) 04/13/18 05:35 Calcium 9.8 mg/dL (8.6-10.3) 04/11/18 22:50 Total Bilirubin 0.4 mg/dL (0.3-1.0) 04/12/18 19:30 Direct Bilirubin 0.15 mg/dL (0.0-0.2) 04/12/18 19:30 AST 10 U/L (13-39) L 04/12/18 19:30 ALT < 3 U/L (7-52) L 04/12/18 19:30 Alkaline Phosphatase 48 U/L (34-104) 04/12/18 19:30 Total Protein 6.6 gm/dL (6.0-8.3) 04/12/18 19:30 Albumin 3.6 gm/dL (4.2-5.5) L 04/12/18 19:30 Globulin 3.0 gm/dL 04/12/18 19:30 Albumin/Globulin Ratio 1.2 (1.0-1.8) 04/12/18 19:30 Stool Occult Blood POSITIVE (NEGATIVE) H 04/11/18 23:15 Valproic Acid 25.2 ug/mL (50.0-100.0) L 04/12/18 19:30 - Physical Exam Vitals and I&O: Vital Signs Temp 97.8 F 04/13/18 12:04 Pulse 65 04/13/18 12:04 Resp 19 04/13/18 12:04 BP 130/58 04/13/18 12:04 Pulse Ox 96 04/13/18 12:04 Intake & Output 04/12/18 04/13/18 04/13/18 18:59 06:59 18:59 Intake Total 2678.667 972 Output Total 2 Balance 2676.667 972 Weight (lbs) 99.79 kg Intake: Intake, IV Amount 998.667 972 D5-0.45NS 1,000 ml @ 80 998.667 972 mls/hr IV .[id number] [facility] Rx #:[id number] Oral 1680 Output: Stool 2 Other: # Voids 2 # Bowel Movements 2 Stool Characteristics Soft Soft Weight Source Bedscale Active Medications: Current Medications Acetaminophen (Tylenol) 650 mg PO Q4H PRN PRN Reason: Pain Or Fever above 101 Stop: 06/11/18 00:04 Al Hydrox/Mg Hydrox/Simethicone (Maalox) 30 ml PO Q6H PRN PRN Reason: Dyspepsia Stop: 06/11/18 00:04 Atorvastatin Calcium (Lipitor) 20 mg PO HS [facility]; Protocol Stop: 06/11/18 20:59 Last Admin: 04/12/18 20:56 Dose: 20 mg Benztropine Mesylate (Cogentin) 1 mg PO BID [facility] Stop: 06/11/18 08:59 Last Admin: 04/13/18 09:26 Dose: 1 mg Carbidopa/Levodopa (Sinemet 25mg-100 Mg) 1 tab PO TID [facility] Stop: 06/11/18 08:59 Last Admin: 04/13/18 09:26 Dose: 1 tab Docusate Sodium (Colace) 100 mg PO DAILY [facility] Stop: 06/11/18 08:59 Last Admin: 04/13/18 09:26 Dose: 100 mg Fenofibrate (Tricor) 134 mg PO DAILY [facility] Stop: 06/11/18 08:59 Last Admin: 04/13/18 09:26 Dose: 134 mg Dextrose/Sodium Chloride (D5-0.45ns) 1,000 mls @ 50 mls/hr IV .Q20H [facility] Stop: 06/12/18 13:59 Ipratropium [place] (Atrovent Neb 0.5mg/2.5ml) 0.5 mg HHN Q2HRT PRN PRN Reason: Shortness of Breath or Wheeze Stop: 06/11/18 00:02 Lactulose (Cephulac) 30 gm PO QID [facility] Stop: 06/11/18 08:59 Last Admin: 04/13/18 09:25 Dose: 30 gm Levocarnitine (Carnitor) 990 mg PO TID [facility] Stop: 06/11/18 08:59 Last Admin: 04/13/18 09:28 Dose: 990 mg Losartan Potassium (Cozaar) 100 mg PO DAILY [facility] Stop: 06/11/18 08:59 Last Admin: 04/13/18 09:26 Dose: 100 mg Multivitamins/Vitamin C (Theragran) 1 tab PO DAILY [facility] Stop: 06/11/18 08:59 Last Admin: 04/13/18 09:26 Dose: 1 tab Ondansetron HCl (Zofran) 4 mg IV Q8H PRN PRN Reason: Nausea / Vomiting Stop: 06/11/18 00:04 Oxybutynin Chloride (Ditropan) 5 mg PO [facility] Stop: 06/11/18 20:59 Last Admin: 04/12/18 20:56 Dose: 5 mg Pantoprazole Sodium (Protonix) 40 mg IVP BID [facility] Stop: 06/11/18 08:59 Last Admin: 04/13/18 09:27 Dose: 40 mg Quetiapine Fumarate (Seroquel) 50 mg PO TID [facility]; Protocol Stop: 06/11/18 08:59 Last Admin: 04/13/18 09:26 Dose: 50 mg Sodium Chloride (Nacl Tab) 1 gm PO BID [facility] Stop: 06/11/18 08:59 Last Admin: 04/13/18 09:26 Dose: 1 gm Valproate Sodium (Depakene) 1,000 mg PO BID [facility]; Protocol Stop: 06/11/18 08:59 Last Admin: 04/13/18 09:25 Dose: 1,000 mg Valproate Sodium (Depakene) 500 mg PO HS [facility]; Protocol Stop: 06/11/18 20:59 General: demented HEENT: NC/AT, PERRLA Neck: Supple, No JVD, No LAD Lungs: congested Cardiovascular: RRR, Normal S1, Normal S2, with murmur Abdomen: soft, non-tender, globular, positive bowel sound Extremities: excoriation, deformity Neurological: no change, disorganized - Procedures Procedures: Procedures Procedure Code Date COLONOSCOPY W/LESION REMOVAL 94870 09/17/17 EXCISION OF ASCENDING COLON, ENDO, DIAGN [id number] 09/17/17 EXCISION OF RECTUM, ENDO [id number] 09/17/17 EXCISION OF TRANSVERSE COLON, ENDO [id number] 09/17/17 EXCISION OF TRANSVERSE COLON, ENDO, DIAGN [id number] 09/17/17 GROUP PSYCHOTHERAPY 50472 12/06/15 GROUP PSYCHOTHERAPY [id number] 12/06/15 OTHER GROUP THERAPY 94.44 06/02/14 RECREATIONAL THERAPY 93.81 07/28/11 Internal Medicine Assmt/Plan - Assessment Assessment: ASSESSMENT: Gastrointestinal bleed, generalized weakness, DJD, hypercholesterolemia, schizoaffective disorder, Parkinson's. PLAN: We will get GI consultation. Keep patient on a full liquid diet. Monitor patient's H and H, IV fluids for hydration. Protonix 40 mg IV b.i.d. We will continue to monitor this patient. - Plan Plan: monitor h and h usha ortiz
--- NOTE | 2018-04-13 17:08 | Consultation ---
DATE OF CONSULTATION: 04/12/2018 PSYCHIATRIC CONSULTATION The patient was seen, chart reviewed, discussed with staff. HISTORY OF PRESENT ILLNESS: The patient is a 67-year-old male with history of schizoaffective disorder, was transferred from his senior care facility for a low hematocrit and rectal bleed, currently on medical floor, has some episodes of irritability and agitation, but for the most part has been compliant with treatment and he is taking his medications. PAST PSYCHIATRIC HISTORY: Multiple psychiatric hospitalizations, chronic history of mental illness. PAST MEDICAL HISTORY: As per H and P. PSYCHOSOCIAL HISTORY: The patient resides in a nursing facility, requires complete care. MENTAL STATUS EXAMINATION: The patient is oriented to person, knows he is in the hospital, knows his age. The patient with some delayed responses. Speech is dysarthric. The patient with occasional paranoia and suspiciousness, but he denied having any audiovisual hallucinations. ASSESSMENT: Schizoaffective disorder. Medical: As in medical history. PLAN: At this time, would recommend continuation of medical supportive measures, continue Seroquel, monitor. Check Depakote level, check liver function tests. Consider psychiatric hospitalization if behavior change. The patient has a history of hypersexual behavior and agitation off and on. We will monitor closely while in the hospital. Thank you for the consultation. [facility]# [id number]
[2018-04-13] MEDS: Atorvastatin Calcium 10 MG TAB PO SCH (21:00)
[2018-04-14 06:45] LABS: % BASOPHILS 0.8 % (0.0-2.0); % EOSINOPHILS 6.1 % (0.0-5.0); % LYMPHOCYTES 34.1 % (20.0-50.0); % MONOCYTES 10.1 % (2.0-10.0); % NEUTROPHILS 48.9 % (40.0-80.0); EOSINOPHILE ABSOLUTE 0.4 Th/cmm (0.1-0.4); HEMATOCRIT 32.8 % (41.0-60); HEMOGLOBIN 11.1 gm/dL (12-16); MEAN CELL VOLUME 90.5 fl (80-99); MEAN CORPUSCULAR HEMOGLOBIN 30.6 pg (27.0-31.0); MEAN CORPUSCULAR HGB CONC 33.8 pg (28.0-36.0); MEAN PLATELET VOLUME 7.8 fl; MONOCYTE ABSOLUTE 0.6 Th/cmm (0.3-1.0); NEUTROPHILE ABSOLUTE 2.8 Th/cmm (1.8-8.0); PLATELET COUNT 259 Th/cmm (150-400); RED BLOOD COUNT 3.63 Mil/cmm (3.80-5.80); RED CELL DISTRIBUTION WIDTH 16.1 % (11.5-20.0); WHITE BLOOD COUNT 5.8 Th/cmm (4.8-10.8)
--- NOTE | 2018-04-14 08:07 | Internal Medicine Prog Note ---
Internal Medicine Subjective - Subjective Patient seen and examined:: with staff, chart reviewed Patient is:: asleep, interactive, eyes closed, agitated, confused Patient Complaints of:: blood in stool Per staff patient has:: no adverse event, poor appetite, unstable gait, noncompliant, tolerating meds Internal Medicine Objective - Results Result Diagrams: 04/14/18 06:21 04/13/18 05:35 Recent Labs: Laboratory Last Values WBC 5.8 Th/cmm (4.8-10.8) 04/14/18 06:21 RBC 3.63 Mil/cmm (3.80-5.80) L 04/14/18 06:21 Hgb 11.1 gm/dL (12-16) L 04/14/18 06:21 Hct 32.8 % (41.0-60) L 04/14/18 06:21 MCV 90.5 fl (80-99) 04/14/18 06:21 MCH 30.6 pg (27.0-31.0) 04/14/18 06:21 MCHC Differential 33.8 pg (28.0-36.0) 04/14/18 06:21 RDW 16.1 % (11.5-20.0) 04/14/18 06:21 Plt Count 259 Th/cmm (150-400) 04/14/18 06:21 MPV 7.8 fl 04/14/18 06:21 Neutrophils % 48.9 % (40.0-80.0) 04/14/18 06:21 Lymphocytes % 34.1 % (20.0-50.0) 04/14/18 06:21 Monocytes % 10.1 % (2.0-10.0) H 04/14/18 06:21 Eosinophils % 6.1 % (0.0-5.0) H 04/14/18 06:21 Basophils % 0.8 % (0.0-2.0) 04/14/18 06:21 PT 12.0 SECONDS (9.5-11.5) H 04/12/18 05:05 INR 1.14 (0.5-1.4) 04/12/18 05:05 PTT (Actin FS) 24.3 SECONDS (26.0-38.0) L 04/12/18 05:05 Sodium 134 mEq/L (136-145) L 04/13/18 05:35 Potassium 3.8 mEq/L (3.5-5.1) 04/13/18 05:35 Chloride 103 mEq/L (98-107) 04/13/18 05:35 Carbon Dioxide 23.9 mEq/L (21.0-31.0) 04/13/18 05:35 Anion Gap 10.9 (7.0-16.0) 04/13/18 05:35 BUN 12 mg/dL (7-25) 04/13/18 05:35 Creatinine 0.7 mg/dL (0.7-1.3) 04/13/18 05:35 Est GFR ( Amer) > 60.0 ml/min (>90) 04/13/18 05:35 Est GFR (Non-Af Amer) > 60.0 ml/min 04/13/18 05:35 BUN/Creatinine Ratio 15.6 04/11/18 22:50 Glucose 101 mg/dL (70-105) 04/13/18 05:35 Calcium 9.8 mg/dL (8.6-10.3) 04/11/18 22:50 Total Bilirubin 0.4 mg/dL (0.3-1.0) 04/12/18 19:30 Direct Bilirubin 0.15 mg/dL (0.0-0.2) 04/12/18 19:30 AST 10 U/L (13-39) L 04/12/18 19:30 ALT < 3 U/L (7-52) L 04/12/18 19:30 Alkaline Phosphatase 48 U/L (34-104) 04/12/18 19:30 Total Protein 6.6 gm/dL (6.0-8.3) 04/12/18 19:30 Albumin 3.6 gm/dL (4.2-5.5) L 04/12/18 19:30 Globulin 3.0 gm/dL 04/12/18 19:30 Albumin/Globulin Ratio 1.2 (1.0-1.8) 04/12/18 19:30 Stool Occult Blood POSITIVE (NEGATIVE) H 04/11/18 23:15 Valproic Acid 25.2 ug/mL (50.0-100.0) L 04/12/18 19:30 - Physical Exam Vitals and I&O: Vital Signs Temp 97.8 F 04/14/18 07:55 Pulse 57 04/14/18 07:55 Resp 18 04/14/18 07:55 BP 115/62 04/14/18 07:55 Pulse Ox 96 04/14/18 07:55 Intake & Output 04/13/18 04/14/18 04/14/18 18:59 06:59 18:59 Intake Total 1822 Balance 1822 Weight (lbs) 99.836 kg 99.79 kg Intake: Intake, IV Amount 972 D5-0.45NS 1,000 ml @ 80 972 mls/hr IV .[id number] [facility] Rx #:[id number] Oral 850 Other: # Voids 6 # Bowel Movements 0 Stool Characteristics Soft Soft Weight Source Bedscale Estimated Active Medications: Current Medications Acetaminophen (Tylenol) 650 mg PO Q4H PRN PRN Reason: Pain Or Fever above 101 Stop: 06/11/18 00:04 Al Hydrox/Mg Hydrox/Simethicone (Maalox) 30 ml PO Q6H PRN PRN Reason: Dyspepsia Stop: 06/11/18 00:04 Atorvastatin Calcium (Lipitor) 20 mg PO HS [facility]; Protocol Stop: 06/11/18 20:59 Last Admin: 04/13/18 21:00 Dose: 20 mg Benztropine Mesylate (Cogentin) 1 mg PO BID [facility] Stop: 06/11/18 08:59 Last Admin: 04/13/18 16:15 Dose: 1 mg Carbidopa/Levodopa (Sinemet 25mg-100 Mg) 1 tab PO TID [facility] Stop: 06/11/18 08:59 Last Admin: 04/13/18 21:00 Dose: 1 tab Docusate Sodium (Colace) 100 mg PO DAILY [facility] Stop: 06/11/18 08:59 Last Admin: 04/13/18 09:26 Dose: 100 mg Fenofibrate (Tricor) 134 mg PO DAILY [facility] Stop: 06/11/18 08:59 Last Admin: 04/13/18 09:26 Dose: 134 mg Dextrose/Sodium Chloride (D5-0.45ns) 1,000 mls @ 50 mls/hr IV .Q20H [facility] Stop: 06/12/18 13:59 Ipratropium [place] (Atrovent Neb 0.5mg/2.5ml) 0.5 mg HHN Q2HRT PRN PRN Reason: Shortness of Breath or Wheeze Stop: 06/11/18 00:02 Lactulose (Cephulac) 30 gm PO QID [facility] Stop: 06/11/18 08:59 Last Admin: 04/13/18 21:01 Dose: 30 gm Levocarnitine (Carnitor) 990 mg PO TID [facility] Stop: 06/11/18 08:59 Last Admin: 04/13/18 21:00 Dose: 990 mg Losartan Potassium (Cozaar) 100 mg PO DAILY [facility] Stop: 06/11/18 08:59 Last Admin: 04/13/18 09:26 Dose: 100 mg Multivitamins/Vitamin C (Theragran) 1 tab PO DAILY [facility] Stop: 06/11/18 08:59 Last Admin: 04/13/18 09:26 Dose: 1 tab Ondansetron HCl (Zofran) 4 mg IV Q8H PRN PRN Reason: Nausea / Vomiting Stop: 06/11/18 00:04 Oxybutynin Chloride (Ditropan) 5 mg PO [facility] Stop: 06/11/18 20:59 Last Admin: 04/13/18 21:01 Dose: 5 mg Pantoprazole Sodium (Protonix) 40 mg IVP BID [facility] Stop: 06/11/18 08:59 Last Admin: 04/13/18 16:15 Dose: 40 mg Quetiapine Fumarate (Seroquel) 50 mg PO TID [facility]; Protocol Stop: 06/11/18 08:59 Last Admin: 04/13/18 21:01 Dose: 50 mg Sodium Chloride (Nacl Tab) 1 gm PO BID [facility] Stop: 06/11/18 08:59 Last Admin: 04/13/18 16:15 Dose: 1 gm Valproate Sodium (Depakene) 1,000 mg PO BID [facility]; Protocol Stop: 06/11/18 08:59 Last Admin: 04/13/18 16:14 Dose: 1,000 mg Valproate Sodium (Depakene) 500 mg PO HS [facility]; Protocol Stop: 06/11/18 20:59 Last Admin: 04/14/18 00:37 Dose: 500 mg General: demented HEENT: NC/AT, PERRLA Neck: Supple, No JVD, No LAD Lungs: congested Cardiovascular: RRR, Normal S1, Normal S2, with murmur Abdomen: soft, non-tender, globular, positive bowel sound Extremities: excoriation, deformity Neurological: no change, disorganized - Procedures Procedures: Procedures Procedure Code Date COLONOSCOPY W/LESION REMOVAL 83416 09/17/17 EXCISION OF ASCENDING COLON, ENDO, DIAGN [id number] 09/17/17 EXCISION OF RECTUM, ENDO [id number] 09/17/17 EXCISION OF TRANSVERSE COLON, ENDO [id number] 09/17/17 EXCISION OF TRANSVERSE COLON, ENDO, DIAGN [id number] 09/17/17 GROUP PSYCHOTHERAPY 72453 12/06/15 GROUP PSYCHOTHERAPY GZHZZZZ 12/06/15 OTHER GROUP THERAPY 94.44 06/02/14 RECREATIONAL THERAPY 93.81 07/28/11 Internal Medicine Assmt/Plan - Assessment Assessment: ASSESSMENT: Gastrointestinal bleed, generalized weakness, DJD, hypercholesterolemia, schizoaffective disorder, Parkinson's. PLAN: We will get GI consultation. Keep patient on a full liquid diet. Monitor patient's H and H, IV fluids for hydration. Protonix 40 mg IV b.i.d. We will continue to monitor this patient. - Plan Plan: monitor h and h usha ortiz
[2018-04-14] MEDS: Fenofibrate, Micronized 134 mg Cap PO SCH (08:21)
[2018-04-14] MEDS: Benztropine 1 MG TAB PO SCH ×2 (08:21→17:51)
[2018-04-14] MEDS: Lactulose 10 Gm/15 mL 30mL UDC PO SCH ×4 (08:21→20:44)
[2018-04-14] MEDS: Multivitamin Tab PO SCH (08:23)
--- NOTE | 2018-04-14 08:43 | GI Progress Note ---
Subjective - Review of Systems Subjective: NO GI BLEEDING Objective - Results Result Diagrams: 04/14/18 06:21 04/13/18 05:35 Recent Labs: Laboratory Last Values WBC 5.8 Th/cmm (4.8-10.8) 04/14/18 06:21 RBC 3.63 Mil/cmm (3.80-5.80) L 04/14/18 06:21 Hgb 11.1 gm/dL (12-16) L 04/14/18 06:21 Hct 32.8 % (41.0-60) L 04/14/18 06:21 MCV 90.5 fl (80-99) 04/14/18 06:21 MCH 30.6 pg (27.0-31.0) 04/14/18 06:21 MCHC Differential 33.8 pg (28.0-36.0) 04/14/18 06:21 RDW 16.1 % (11.5-20.0) 04/14/18 06:21 Plt Count 259 Th/cmm (150-400) 04/14/18 06:21 MPV 7.8 fl 04/14/18 06:21 Neutrophils % 48.9 % (40.0-80.0) 04/14/18 06:21 Lymphocytes % 34.1 % (20.0-50.0) 04/14/18 06:21 Monocytes % 10.1 % (2.0-10.0) H 04/14/18 06:21 Eosinophils % 6.1 % (0.0-5.0) H 04/14/18 06:21 Basophils % 0.8 % (0.0-2.0) 04/14/18 06:21 PT 12.0 SECONDS (9.5-11.5) H 04/12/18 05:05 INR 1.14 (0.5-1.4) 04/12/18 05:05 PTT (Actin FS) 24.3 SECONDS (26.0-38.0) L 04/12/18 05:05 Sodium 134 mEq/L (136-145) L 04/13/18 05:35 Potassium 3.8 mEq/L (3.5-5.1) 04/13/18 05:35 Chloride 103 mEq/L (98-107) 04/13/18 05:35 Carbon Dioxide 23.9 mEq/L (21.0-31.0) 04/13/18 05:35 Anion Gap 10.9 (7.0-16.0) 04/13/18 05:35 BUN 12 mg/dL (7-25) 04/13/18 05:35 Creatinine 0.7 mg/dL (0.7-1.3) 04/13/18 05:35 Est GFR ( Amer) > 60.0 ml/min (>90) 04/13/18 05:35 Est GFR (Non-Af Amer) > 60.0 ml/min 04/13/18 05:35 BUN/Creatinine Ratio 15.6 04/11/18 22:50 Glucose 101 mg/dL (70-105) 04/13/18 05:35 Calcium 9.8 mg/dL (8.6-10.3) 04/11/18 22:50 Total Bilirubin 0.4 mg/dL (0.3-1.0) 04/12/18 19:30 Direct Bilirubin 0.15 mg/dL (0.0-0.2) 04/12/18 19:30 AST 10 U/L (13-39) L 04/12/18 19:30 ALT < 3 U/L (7-52) L 04/12/18 19:30 Alkaline Phosphatase 48 U/L (34-104) 04/12/18 19:30 Total Protein 6.6 gm/dL (6.0-8.3) 04/12/18 19:30 Albumin 3.6 gm/dL (4.2-5.5) L 04/12/18 19:30 Globulin 3.0 gm/dL 04/12/18 19:30 Albumin/Globulin Ratio 1.2 (1.0-1.8) 04/12/18 19:30 Stool Occult Blood POSITIVE (NEGATIVE) H 04/11/18 23:15 Valproic Acid 25.2 ug/mL (50.0-100.0) L 04/12/18 19:30 - Physical Exam Vitals and I&O: Vital Signs Temp 97.8 F 04/14/18 07:55 Pulse 71 04/14/18 08:23 Resp 18 04/14/18 07:55 BP 127/83 04/14/18 08:23 Pulse Ox 96 04/14/18 07:55 Intake & Output 04/13/18 04/14/18 04/14/18 18:59 06:59 18:59 Intake Total 1822 Balance 1822 Weight (lbs) 99.836 kg 99.79 kg Intake: Intake, IV Amount 972 D5-0.45NS 1,000 ml @ 80 972 mls/hr IV .[id number] [facility] Rx #:[id number] Oral 850 Other: # Voids 6 # Bowel Movements 0 Stool Characteristics Soft Soft Weight Source Bedscale Estimated Active Medications: Current Medications Acetaminophen (Tylenol) 650 mg PO Q4H PRN PRN Reason: Pain Or Fever above 101 Stop: 06/11/18 00:04 Al Hydrox/Mg Hydrox/Simethicone (Maalox) 30 ml PO Q6H PRN PRN Reason: Dyspepsia Stop: 06/11/18 00:04 Atorvastatin Calcium (Lipitor) 20 mg PO HS [facility]; Protocol Stop: 06/11/18 20:59 Last Admin: 04/13/18 21:00 Dose: 20 mg Benztropine Mesylate (Cogentin) 1 mg PO BID [facility] Stop: 06/11/18 08:59 Last Admin: 04/14/18 08:21 Dose: 1 mg Carbidopa/Levodopa (Sinemet 25mg-100 Mg) 1 tab PO TID [facility] Stop: 06/11/18 08:59 Last Admin: 04/14/18 08:21 Dose: 1 tab Docusate Sodium (Colace) 100 mg PO DAILY [facility] Stop: 06/11/18 08:59 Last Admin: 04/14/18 08:21 Dose: 100 mg Fenofibrate (Tricor) 134 mg PO DAILY [facility] Stop: 06/11/18 08:59 Last Admin: 04/14/18 08:21 Dose: 134 mg Dextrose/Sodium Chloride (D5-0.45ns) 1,000 mls @ 50 mls/hr IV .Q20H [facility] Stop: 06/12/18 13:59 Ipratropium [place] (Atrovent Neb 0.5mg/2.5ml) 0.5 mg HHN Q2HRT PRN PRN Reason: Shortness of Breath or Wheeze Stop: 06/11/18 00:02 Lactulose (Cephulac) 30 gm PO QID [facility] Stop: 06/11/18 08:59 Last Admin: 04/14/18 08:21 Dose: 30 gm Levocarnitine (Carnitor) 990 mg PO TID [facility] Stop: 06/11/18 08:59 Last Admin: 04/14/18 08:22 Dose: 990 mg Losartan Potassium (Cozaar) 100 mg PO DAILY [facility] Stop: 06/11/18 08:59 Last Admin: 04/14/18 08:23 Dose: 100 mg Multivitamins/Vitamin C (Theragran) 1 tab PO DAILY [facility] Stop: 06/11/18 08:59 Last Admin: 04/14/18 08:23 Dose: 1 tab Ondansetron HCl (Zofran) 4 mg IV Q8H PRN PRN Reason: Nausea / Vomiting Stop: 06/11/18 00:04 Oxybutynin Chloride (Ditropan) 5 mg PO [facility] Stop: 06/11/18 20:59 Last Admin: 04/13/18 21:01 Dose: 5 mg Pantoprazole Sodium (Protonix) 40 mg IVP BID [facility] Stop: 06/11/18 08:59 Last Admin: 04/14/18 08:23 Dose: 40 mg Quetiapine Fumarate (Seroquel) 50 mg PO TID [facility]; Protocol Stop: 06/11/18 08:59 Last Admin: 04/14/18 08:23 Dose: 50 mg Sodium Chloride (Nacl Tab) 1 gm PO BID [facility] Stop: 06/11/18 08:59 Last Admin: 04/14/18 08:23 Dose: 1 gm Valproate Sodium (Depakene) 1,000 mg PO BID [facility]; Protocol Stop: 06/11/18 08:59 Last Admin: 04/14/18 08:20 Dose: 1,000 mg Valproate Sodium (Depakene) 500 mg PO [facility]; Protocol Stop: 06/11/18 20:59 Last Admin: 04/14/18 00:37 Dose: 500 mg - Procedures Procedures: Procedures Procedure Code Date COLONOSCOPY W/LESION REMOVAL 45769 09/17/17 EXCISION OF ASCENDING COLON, ENDO, DIAGN [id number] 09/17/17 EXCISION OF RECTUM, ENDO [id number] 09/17/17 EXCISION OF TRANSVERSE COLON, ENDO [id number] 09/17/17 EXCISION OF TRANSVERSE COLON, ENDO, DIAGN [id number] 09/17/17 GROUP PSYCHOTHERAPY 55349 12/06/15 GROUP PSYCHOTHERAPY GZHZZZZ 12/06/15 OTHER GROUP THERAPY 94.44 06/02/14 RECREATIONAL THERAPY 93.81 07/28/11 Assessment/Plan - Assessment Assessment: 67 YO MALE WITH RECTAL BLEEDING NO ACTIVE BLEEDING AT THIS TIME HAD EGD AND COLO DONE RECENTLY HGB STABLE 1.FOLLOW H/H 2.CONT SUPP CARE 3.RESERVE ENDOSCOPY PROCEDURE FOR THERAPEUTIC INTERVENTION
[2018-04-14] MEDS: D5-0.45NS 1,000 ML IV SCH (10:30)
[2018-04-14] MEDS: Atorvastatin Calcium 10 MG TAB PO SCH (20:43)
[2018-04-15 05:15] LABS: BASOPHILE ABSOLUTE 0.1 Th/cumm (0-0.2); EOSINOPHILE ABSOLUTE 0.3 Th/cmm (0.1-0.4); HEMOGLOBIN 11.2 gm/dL (12-16); LYMPHOCYTE ABSOLUTE 2.3 Th/cmm (1.5-3.0); MONOCYTE ABSOLUTE 0.6 Th/cmm (0.3-1.0)
[2018-04-15 05:21] LABS: % BASOPHILS 0.9 % (0.0-2.0); % LYMPHOCYTES 34.3 % (20.0-50.0); % MONOCYTES 9.4 % (2.0-10.0); % NEUTROPHILS 50.4 % (40.0-80.0); HEMATOCRIT 32.9 % (41.0-60); MEAN CORPUSCULAR HGB CONC 34.1 pg (28.0-36.0); MEAN PLATELET VOLUME 7.4 fl; NEUTROPHILE ABSOLUTE 3.3 Th/cmm (1.8-8.0); PLATELET COUNT 237 Th/cmm (150-400); RED BLOOD COUNT 3.61 Mil/cmm (3.80-5.80); RED CELL DISTRIBUTION WIDTH 15.8 % (11.5-20.0); WHITE BLOOD COUNT 6.6 Th/cmm (4.8-10.8)
[2018-04-15] MEDS: D5-0.45NS 1,000 ML IV SCH (06:35)
[2018-04-15] MEDS: Multivitamin Tab PO SCH (09:11)
[2018-04-15] MEDS: Fenofibrate, Micronized 134 mg Cap PO SCH (09:11)
[2018-04-15] MEDS: Benztropine 1 MG TAB PO SCH ×2 (09:12→17:16)
[2018-04-15] MEDS: Lactulose 10 Gm/15 mL 30mL UDC PO SCH ×2 (09:19→17:18)
--- NOTE | 2018-04-15 11:21 | Internal Medicine Prog Note ---
Internal Medicine Subjective - Subjective Service Date: 04/15/18 Patient seen and examined:: with staff Patient is:: asleep, interactive, eyes closed, agitated, confused Patient Complaints of:: blood in stool Per staff patient has:: no adverse event, poor appetite, unstable gait, noncompliant, tolerating meds Internal Medicine Objective - Results Result Diagrams: 04/15/18 04:45 04/13/18 05:35 Recent Labs: Laboratory Last Values WBC 6.6 Th/cmm (4.8-10.8) 04/15/18 04:45 RBC 3.61 Mil/cmm (3.80-5.80) L 04/15/18 04:45 Hgb 11.2 gm/dL (12-16) L 04/15/18 04:45 Hct 32.9 % (41.0-60) L 04/15/18 04:45 MCV 91.0 fl (80-99) 04/15/18 04:45 MCH 31.0 pg (27.0-31.0) 04/15/18 04:45 MCHC Differential 34.1 pg (28.0-36.0) 04/15/18 04:45 RDW 15.8 % (11.5-20.0) 04/15/18 04:45 Plt Count 237 Th/cmm (150-400) 04/15/18 04:45 MPV 7.4 fl 04/15/18 04:45 Neutrophils % 50.4 % (40.0-80.0) 04/15/18 04:45 Lymphocytes % 34.3 % (20.0-50.0) 04/15/18 04:45 Monocytes % 9.4 % (2.0-10.0) 04/15/18 04:45 Eosinophils % 5.0 % (0.0-5.0) 04/15/18 04:45 Basophils % 0.9 % (0.0-2.0) 04/15/18 04:45 PT 12.0 SECONDS (9.5-11.5) H 04/12/18 05:05 INR 1.14 (0.5-1.4) 04/12/18 05:05 PTT (Actin FS) 24.3 SECONDS (26.0-38.0) L 04/12/18 05:05 Sodium 134 mEq/L (136-145) L 04/13/18 05:35 Potassium 3.8 mEq/L (3.5-5.1) 04/13/18 05:35 Chloride 103 mEq/L (98-107) 04/13/18 05:35 Carbon Dioxide 23.9 mEq/L (21.0-31.0) 04/13/18 05:35 Anion Gap 10.9 (7.0-16.0) 04/13/18 05:35 BUN 12 mg/dL (7-25) 04/13/18 05:35 Creatinine 0.7 mg/dL (0.7-1.3) 04/13/18 05:35 Est GFR ( Amer) > 60.0 ml/min (>90) 04/13/18 05:35 Est GFR (Non-Af Amer) > 60.0 ml/min 04/13/18 05:35 BUN/Creatinine Ratio 15.6 04/11/18 22:50 Glucose 101 mg/dL (70-105) 04/13/18 05:35 Calcium 9.8 mg/dL (8.6-10.3) 04/11/18 22:50 Total Bilirubin 0.4 mg/dL (0.3-1.0) 04/12/18 19:30 Direct Bilirubin 0.15 mg/dL (0.0-0.2) 04/12/18 19:30 AST 10 U/L (13-39) L 04/12/18 19:30 ALT < 3 U/L (7-52) L 04/12/18 19:30 Alkaline Phosphatase 48 U/L (34-104) 04/12/18 19:30 Total Protein 6.6 gm/dL (6.0-8.3) 04/12/18 19:30 Albumin 3.6 gm/dL (4.2-5.5) L 04/12/18 19:30 Globulin 3.0 gm/dL 04/12/18 19:30 Albumin/Globulin Ratio 1.2 (1.0-1.8) 04/12/18 19:30 Stool Occult Blood POSITIVE (NEGATIVE) H 04/11/18 23:15 Valproic Acid 25.2 ug/mL (50.0-100.0) L 04/12/18 19:30 - Physical Exam Vitals and I&O: Vital Signs Temp 97.2 F 04/15/18 07:48 Pulse 64 04/15/18 09:10 Resp 18 04/15/18 08:03 BP 133/64 04/15/18 09:10 Pulse Ox 92 04/15/18 07:48 Intake & Output 04/14/18 04/15/18 04/15/18 18:59 06:59 18:59 Intake Total 1329.167 960.833 Output Total 900 Balance 1329.167 60.833 Weight (lbs) 220 lb 220 lb Intake: Intake, IV Amount 379.167 620.833 D5-0.45NS 1,000 ml @ 50 379.167 620.833 mls/hr IV .Q20H [facility] Rx#: [id number] Oral 950 340 Output: Urine 900 Other: # Voids 5 # Bowel Movements 1 1 Stool Characteristics Brown Weight Source Bedscale Bedscale Active Medications: Current Medications Acetaminophen (Tylenol) 650 mg PO Q4H PRN PRN Reason: Pain Or Fever above 101 Stop: 06/11/18 00:04 Al Hydrox/Mg Hydrox/Simethicone (Maalox) 30 ml PO Q6H PRN PRN Reason: Dyspepsia Stop: 06/11/18 00:04 Atorvastatin Calcium (Lipitor) 20 mg PO HS [facility]; Protocol Stop: 06/11/18 20:59 Last Admin: 04/14/18 20:43 Dose: 20 mg Benztropine Mesylate (Cogentin) 1 mg PO BID [facility] Stop: 06/11/18 08:59 Last Admin: 04/15/18 09:12 Dose: 1 mg Carbidopa/Levodopa (Sinemet 25mg-100 Mg) 1 tab PO TID [facility] Stop: 06/11/18 08:59 Last Admin: 04/15/18 09:11 Dose: 1 tab Docusate Sodium (Colace) 100 mg PO DAILY [facility] Stop: 06/11/18 08:59 Last Admin: 04/15/18 09:12 Dose: 100 mg Fenofibrate (Tricor) 134 mg PO DAILY [facility] Stop: 06/11/18 08:59 Last Admin: 04/15/18 09:11 Dose: 134 mg Dextrose/Sodium Chloride (D5-0.45ns) 1,000 mls @ 50 mls/hr IV .Q20H [facility] Stop: 06/12/18 13:59 Last Admin: 04/15/18 06:35 Dose: 50 mls/hr Ipratropium [place] (Atrovent Neb 0.5mg/2.5ml) 0.5 mg HHN Q2HRT PRN PRN Reason: Shortness of Breath or Wheeze Stop: 06/11/18 00:02 Lactulose (Cephulac) 30 gm PO QID [facility] Stop: 06/11/18 08:59 Last Admin: 04/15/18 09:19 Dose: 30 gm Levocarnitine (Carnitor) 990 mg PO TID [facility] Stop: 06/11/18 08:59 Last Admin: 04/14/18 20:42 Dose: 990 mg Losartan Potassium (Cozaar) 100 mg PO DAILY [facility] Stop: 06/11/18 08:59 Last Admin: 04/15/18 09:10 Dose: 100 mg Multivitamins/Vitamin C (Theragran) 1 tab PO DAILY [facility] Stop: 06/11/18 08:59 Last Admin: 04/15/18 09:11 Dose: 1 tab Ondansetron HCl (Zofran) 4 mg IV Q8H PRN PRN Reason: Nausea / Vomiting Stop: 06/11/18 00:04 Oxybutynin Chloride (Ditropan) 5 mg PO [facility] Stop: 06/11/18 20:59 Last Admin: 04/14/18 20:45 Dose: 5 mg Pantoprazole Sodium (Protonix) 40 mg IVP BID [facility] Stop: 06/11/18 08:59 Last Admin: 04/15/18 09:09 Dose: 40 mg Quetiapine Fumarate (Seroquel) 50 mg PO TID [facility]; Protocol Stop: 06/11/18 08:59 Last Admin: 04/15/18 09:12 Dose: 50 mg Sodium Chloride (Nacl Tab) 1 gm PO BID [facility] Stop: 06/11/18 08:59 Last Admin: 04/15/18 09:11 Dose: 1 gm Valproate Sodium (Depakene) 1,000 mg PO BID [facility]; Protocol Stop: 06/11/18 08:59 Last Admin: 04/15/18 09:19 Dose: 1,000 mg Valproate Sodium (Depakene) 500 mg PO HS [facility]; Protocol Stop: 06/11/18 20:59 Last Admin: 04/14/18 20:42 Dose: 500 mg General: demented HEENT: NC/AT, PERRLA Neck: Supple, No JVD, No LAD Lungs: congested Cardiovascular: RRR, Normal S1, Normal S2, with murmur Abdomen: soft, non-tender, globular, positive bowel sound Extremities: excoriation, deformity Neurological: no change, disorganized - Procedures Procedures: Procedures Procedure Code Date COLONOSCOPY W/LESION REMOVAL 47068 09/17/17 EXCISION OF ASCENDING COLON, ENDO, DIAGN [id number] 09/17/17 EXCISION OF RECTUM, ENDO [id number] 09/17/17 EXCISION OF TRANSVERSE COLON, ENDO [id number] 09/17/17 EXCISION OF TRANSVERSE COLON, ENDO, DIAGN [id number] 09/17/17 GROUP PSYCHOTHERAPY 55350 12/06/15 GROUP PSYCHOTHERAPY [id number] 12/06/15 OTHER GROUP THERAPY 94.44 06/02/14 RECREATIONAL THERAPY 93.81 07/28/11 Internal Medicine Assmt/Plan - Assessment Assessment: Gastrointestinal bleed generalized weakness DJD hypercholesterolemia schizoaffective disorder Parkinson's - Plan Plan: monitor h/h continue current plan of care
== END 2018-04-15 16:15 | DRG 377 ==
LOC: ER 22:38 → MSI 04-12 00:01
PROVIDERS: ADMIT Internal Medicine; ATTEND Internal Medicine
DX: K92.1 Melena (principal); G93.40 Encephalopathy, unspecified; E44.0 Moderate protein-calorie malnutrition; M19.90 Unspecified osteoarthritis, unspecified site; D64.9 Anemia, unspecified; E78.5 Hyperlipidemia, unspecified; I10 Essential (primary) hypertension; J44.9 Chronic obstructive pulmonary disease, unspecified; K59.00 Constipation, unspecified; E78.00 Pure hypercholesterolemia, unspecified; G20 Parkinson's disease; F25.9 Schizoaffective disorder, unspecified; Z88.0 Allergy status to penicillin; Z87.891 Personal history of nicotine dependence; Z86.73 Personal history of transient ischemic attack (TIA), and cerebral infarction without residual deficits; Z93.0 Tracheostomy status; Z79.899 Other long term (current) drug therapy
CPT/HCPCS: 36415-UA; 80048-TC; 80076-TC; 80164-TC; 82270-TC; 85025-TC; 85610-TC; 85730-TC; 94760; C9113; Z7610

== ENCOUNTER 2019-02-13 12:27 | Inpatient (IN) | payer MEDICARE, BC ==
--- NOTE | 2019-02-13 12:51 | ED Physician Chart ---
ED Chief Complaint/HPI - Patient Information Date Seen:: 02/13/19 Time Seen:: 12:40 Chief Complaint:: cough and congestion History of Present Illness:: Patient has had cough and congestion for 1 month. No fever. He sometimes has sputum production but doesn't know what color it is. Allergies:: Allergies Allergy/AdvReac Type Severity Reaction Status Date / Time Penicillins Allergy Verified 07/19/17 16:51 Vitals:: Vital Signs - 8 hr 02/13/19 12:29 Temp 98.2 F HR 98 RR 16 BP 127/98 O2 Sat % 91 Historian:: Patient Review:: Nurse's Note Reviewed, Transfer documents Reviewed ED Review of Systems - Review of Systems General/Constitutional: No fever Skin: No skin lesions Head: No headache Eyes: No loss of vision ENT: No earache Neck: No neck pain Cardio Vascular: No chest pain, No palpitations Pulmonary: No SOB, Cough, Sputum GI: No nausea, No vomiting, No diarrhea G/U: No dysuria Musculoskeletal: No bone or joint pain Endocrine: No polyuria Psychiatric: No prior psych history Hematopoietic: No bruising Allergic/Immuno: No urticaria Neurological: No syncope, No focal symptoms, No weakness ED Past Medical History - Past Medical History Past Medical History: HTN, Asthma/COPD, CVA/TIA (Parkinson's disease; hyperlipidemia; hyponatremia), Seizures, Other Social History: Care Facility (formerly smoked cigarettes and drank alcohol) Surgical History: other (right craniotomy for head injury when his horse fell on his head; tracheotomy) Medication: Reviewed Family Medical History - Family Member Mother History Unknown: Yes ED Physical Exam - Physical Examination General/Constitutional: Awake, Well-developed, well-nourished Head: Atraumatic Eyes: Lids, conjuctiva normal, PERRL Skin: Nl inspection, No rash, No skin lesions, No ecchymosis ENMT: External ears, nose nl, TM canals nl, Nasal exam nl Other ENMT comments:: Edentulous Neck: No nuchal rigidity Respiratory: Nl effort/Exclusion, Clear to Auscultation, No Wheeze/Rhonchi/Rales Other Cardio Vascular comments:: Heart sounds faint; pulse regular GI: No tenderness/rebounding/guarding, No organomegaly, No hernia, Normal BS's : No CVA tenderness Extremities: Normal digits & nails Neuro/Psych: Alert/oriented Other Neuro/Psych comments:: Gross tremor left arm; equal hand grasp ED Labs/Radiology/EKG Results - Lab Results Results: Laboratory Results WBC 5.7 Th/cmm (4.8-10.8) 02/13/19 12:44 RBC 5.12 Mil/cmm (3.80-5.80) 02/13/19 12:44 Hgb 12.7 gm/dL (12-16) 02/13/19 12:44 Hct 40.0 % (41.0-60) L 02/13/19 12:44 MCV 78.1 fl (80-99) L 02/13/19 12:44 MCH 24.8 pg (27.0-31.0) L 02/13/19 12:44 MCHC Differential 31.7 pg (28.0-36.0) 02/13/19 12:44 RDW 17.1 % (11.5-20.0) 02/13/19 12:44 Plt Count 195 Th/cmm (150-400) 02/13/19 12:44 MPV 8.2 fl 02/13/19 12:44 Neutrophils % 58.6 % (40.0-80.0) 02/13/19 12:44 Lymphocytes % 27.1 % (20.0-50.0) 02/13/19 12:44 Monocytes % 9.3 % (2.0-10.0) 02/13/19 12:44 Eosinophils % 3.8 % (0.0-5.0) 02/13/19 12:44 Basophils % 1.2 % (0.0-2.0) 02/13/19 12:44 Laboratory Results WBC 5.7 Th/cmm (4.8-10.8) 02/13/19 12:44 RBC 5.12 Mil/cmm (3.80-5.80) 02/13/19 12:44 Hgb 12.7 gm/dL (12-16) 02/13/19 12:44 Hct 40.0 % (41.0-60) L 02/13/19 12:44 MCV 78.1 fl (80-99) L 02/13/19 12:44 MCH 24.8 pg (27.0-31.0) L 02/13/19 12:44 MCHC Differential 31.7 pg (28.0-36.0) 02/13/19 12:44 RDW 17.1 % (11.5-20.0) 02/13/19 12:44 Plt Count 195 Th/cmm (150-400) 02/13/19 12:44 MPV 8.2 fl 02/13/19 12:44 Neutrophils % 58.6 % (40.0-80.0) 02/13/19 12:44 Lymphocytes % 27.1 % (20.0-50.0) 02/13/19 12:44 Monocytes % 9.3 % (2.0-10.0) 02/13/19 12:44 Eosinophils % 3.8 % (0.0-5.0) 02/13/19 12:44 Basophils % 1.2 % (0.0-2.0) 02/13/19 12:44 - Radiology Results Results: Chest x-ray showed cardiomegaly and elevation of right hemidiaphragm; possible pneumonia left base - EKG Interpretations Rate & Rhythm: sinus rhythm with a rate is 77 [place]: normal axis Comments:: old septal [place] ED Assessment - Assessment General Assessment: 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 ED Septic Shock - . Is Septic Shock (SBP<90, OR Lactate>4 mmol\L) present?: No - <6hrs of presentation: Vital Signs: Vital Signs - 8 hr 02/13/19 12:29 Temp 98.2 F HR 98 RR 16 BP 127/98 O2 Sat % 91 ED Reassessment (Disposition) - Reassessment Reassessment Condition:: Unchanged - Diagnosis Diagnosis:: Bronchitis; frequent choking; history of right sided head trauma requiring craniotomy; possible pneumonia left base - Patient Disposition Admitted to:: Telemetry Spoke to:: Juno Harden Admitting Medical Physician:: Juno Harden Condition at Disposition:: Stable, Unchanged
[2019-02-13 13:06] LABS: % BASOPHILS 1.2 % (0.0-2.0); % EOSINOPHILS 3.8 % (0.0-5.0); % LYMPHOCYTES 27.1 % (20.0-50.0); % MONOCYTES 9.3 % (2.0-10.0); % NEUTROPHILS 58.6 % (40.0-80.0); BASOPHILE ABSOLUTE 0.1 Th/cumm (0-0.2); EOSINOPHILE ABSOLUTE 0.2 Th/cmm (0.1-0.4); HEMOGLOBIN 12.7 gm/dL (12-16); LYMPHOCYTE ABSOLUTE 1.5 Th/cmm (1.5-3.0); MEAN CELL VOLUME 78.1 fl (80-99); MEAN CORPUSCULAR HEMOGLOBIN 24.8 pg (27.0-31.0); MEAN CORPUSCULAR HGB CONC 31.7 pg (28.0-36.0); MEAN PLATELET VOLUME 8.2 fl; MONOCYTE ABSOLUTE 0.5 Th/cmm (0.3-1.0); NEUTROPHILE ABSOLUTE 3.4 Th/cmm (1.8-8.0); PLATELET COUNT 195 Th/cmm (150-400); RED BLOOD COUNT 5.12 Mil/cmm (3.80-5.80); RED CELL DISTRIBUTION WIDTH 17.1 % (11.5-20.0); WHITE BLOOD COUNT 5.7 Th/cmm (4.8-10.8)
--- NOTE | 2019-02-13 13:28 | Diagnostic Imaging Report ---
CHEST X-RAY: AP view INDICATION: Cough COMPARISON: 01/28/2018 FINDINGS: There is elevation of the right hemidiaphragm interposed bowel loops. There is a small left effusion. Cardiomegaly is noted. Low lung volumes are noted. Degenerative changes of spine are noted with scoliosis. IMPRESSION: Small left effusion. Pneumonia of the left base cannot be excluded. Low lung volumes. Cardiomegaly. Elevation of the right hemidiaphragm with interposed gas-filled loops of bowel, correlate clinically.
[2019-02-13] MEDS ORDERED: Ipratropium Neb 0.5 mg/2.5 mL UD HHN PRN (13:40)
[2019-02-13] MEDS ORDERED: Albuterol Nebulizer 2.5mg/3mL HHN PRN (13:44)
[2019-02-13] MEDS ORDERED: Ipratropium Neb 0.5 mg/2.5 mL UD IH PRN (13:44)
[2019-02-13 14:34] LABS: INF A SCREEN NEG FOR INF A
[2019-02-13 14:35] LABS: INF B SCREEN NEG FOR INF B
--- NOTE | 2019-02-13 14:57 | Diagnostic Imaging Report ---
CT abdomen and pelvis without intravenous contrast Indication: Abdominal pain, mass Comparison: CT abdomen and pelvis on 01/28/2018, Technique: Axial images were obtained from the lung bases to the bilateral proximal femurs without IV contrast. Coronal reconstructions were made. total DLP: 909, CTDI15.3 FINDINGS: Atelectatic changes of the lung bases are seen with left basal atelectasis versus faint infiltrate. There is elevation of right hemidiaphragm. Assessment of the solid organs is limited due to lack of IV contrast and motion. No focal hepatic, splenic, or pancreatic lesions. Pancreatic atrophy is noted. No focal adrenal lesions. No evidence of hydronephrosis or nephrolithiasis. Sub-CM low-density lesion of the right kidney is noted to small to characterize. There is copious stool throughout the colon gas-filled loops of bowel also noted. Mildly prominent retrocrural lymph node is noted measuring 1.4 x 0.7 cm. There is a small fat-containing left inguinal hernia. Moderate atherosclerosis is noted. Degenerative changes of the spine and pelvis are noted. IMPRESSION: Limited exam due to lack of IV and oral contrast. Elevation of the right hemidiaphragm. Mildly prominent retrocrural lymph node nonspecific. Consider follow-up surveillance. Copious stool throughout the colon. Please correlate for constipation. Sub-CM low-density lesion of the right kidney, too small to characterize but possibly a cyst. Mild nonspecific perinephric inflammatory changes are noted. No hydronephrosis. Left basal atelectasis versus less likely infiltrate. Small fat-containing left inguinal hernia. Atherosclerotic vascular disease.
[2019-02-13 15:08] VITALS: BP 110/13
[2019-02-13 15:14] LABS: BUN - UREA NITROGEN 11 mg/dL (7-25); CHLORIDE 100 mEq/L (98-107); GLUCOSE 125 mg/dL (70-105); POTASSIUM SERUM 3.6 mEq/L (3.5-5.1); SODIUM SERUM 133 mEq/L (136-145)
[2019-02-13 15:15] LABS: ANION GAP 11.6 (7.0-16.0); CALCIUM SERUM 9.3 mg/dL (8.6-10.3); GFR AFRICAN-AMERICAN > 60.0 ml/min (>90); GFR NON AFRICAN-AMERICAN > 60.0 ml/min
[2019-02-13] MEDS: D5-0.45NS 1,000 ML IV SCH (15:54)
[2019-02-13] MEDS: Lactulose 10 Gm/15 mL 30mL UDC PO SCH ×2 (16:47→20:40)
[2019-02-13] MEDS: Benztropine 1 MG TAB PO SCH (16:47)
--- NOTE | 2019-02-13 17:14 | History & Physical ---
ADMIT DATE: 02/13/2019 INTERNAL MEDICINE HISTORY AND PHYSICAL CHIEF COMPLAINT: Cough, congestion, and difficulty swallowing. 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 The patient is admitted for further management. PAST MEDICAL HISTORY: As mentioned in the history of present illness. PAST SURGICAL HISTORY: Status CAR WHACKER shunt and craniotomy. ALLERGIES: PENICILLIN. MEDICATIONS: Tylenol, Cogentin, Sinemet, fenofibrate, lactulose, Carnitor, losartan, multivitamin, Protonix, and Seroquel. FAMILY HISTORY: Noncontributory. SOCIAL HISTORY: The patient is a detention patient requiring 24-hour total care. REVIEW OF SYSTEMS: This is limited secondary to the patient's current mental state. We will try to obtain more detailed review of system at a later point in time family members. There is a brother ____ . We will also try to get information from the nursing staff at [facility] [phone]. PHYSICAL EXAMINATION: VITAL SIGNS: Blood pressure 127/90, respirations 16, pulse 98, temperature 98.2. GENERAL: Elderly male, appears his stated age, morbidly obese. NECK: Supple. No mass. LUNGS: Equal breath sounds with a few rhonchi. HEART: Regular rate and rhythm with systolic ejection murmur. ABDOMEN: Soft, globular. EXTREMITIES: Positive excoriations. NEUROLOGIC: Limited, moving all 4 extremities. LABORATORY DATA: WBC is 5, hemoglobin 12, platelets 185. Chemistry are pending. Chest x-ray showed a large diaphragmatic hernia. ASSESSMENT AND PLAN: Dysphagia, cough, congestion, large diaphragmatic hernia, stroke, obesity, hypercholesterolemia and psych disorder, Parkinson's. Continue the oxygen. We will refer the patient to Surgery as well as GI, CT of the abdomen. We will continue to monitor closely. JOB# [id number]
[2019-02-13] MEDS: Atorvastatin Calcium 10 MG TAB PO SCH (20:39)
[2019-02-14] MEDS: D5-0.45NS 1,000 ML IV SCH ×2 (04:23→21:17)
[2019-02-14] MEDS: Pantoprazole 40 mg EC Tab PO SCH (06:59)
[2019-02-14] MEDS: Benztropine 1 MG TAB PO SCH ×2 (08:37→16:31)
[2019-02-14] MEDS: Fenofibrate, Micronized 134 mg Cap PO SCH (08:37)
[2019-02-14] MEDS: Lactulose 10 Gm/15 mL 30mL UDC PO SCH (08:38)
[2019-02-14] MEDS: Multivitamin Tab PO SCH (08:38)
--- NOTE | 2019-02-14 12:27 | Internal Medicine Prog Note ---
Internal Medicine Subjective - Subjective Patient seen and examined:: with staff, chart reviewed Patient is:: awake, verbal, interactive, in bed, agitated Patient Complaints of:: congestion Per staff patient has:: no adverse event, no episodes of fall, poor oral intake , tolerating meds Internal Medicine Objective - Results Result Diagrams: 02/13/19 12:44 02/13/19 12:55 Recent Labs: Laboratory Last Values WBC 5.7 Th/cmm (4.8-10.8) 02/13/19 12:44 RBC 5.12 Mil/cmm (3.80-5.80) 02/13/19 12:44 Hgb 12.7 gm/dL (12-16) 02/13/19 12:44 Hct 40.0 % (41.0-60) L 02/13/19 12:44 MCV 78.1 fl (80-99) L 02/13/19 12:44 MCH 24.8 pg (27.0-31.0) L 02/13/19 12:44 MCHC Differential 31.7 pg (28.0-36.0) 02/13/19 12:44 RDW 17.1 % (11.5-20.0) 02/13/19 12:44 Plt Count 195 Th/cmm (150-400) 02/13/19 12:44 MPV 8.2 fl 02/13/19 12:44 Neutrophils % 58.6 % (40.0-80.0) 02/13/19 12:44 Lymphocytes % 27.1 % (20.0-50.0) 02/13/19 12:44 Monocytes % 9.3 % (2.0-10.0) 02/13/19 12:44 Eosinophils % 3.8 % (0.0-5.0) 02/13/19 12:44 Basophils % 1.2 % (0.0-2.0) 02/13/19 12:44 Sodium 133 mEq/L (136-145) L 02/13/19 12:55 Potassium 3.6 mEq/L (3.5-5.1) 02/13/19 12:55 Chloride 100 mEq/L (98-107) 02/13/19 12:55 Carbon Dioxide 25.0 mEq/L (21.0-31.0) 02/13/19 12:55 Anion Gap 11.6 (7.0-16.0) 02/13/19 12:55 BUN 11 mg/dL (7-25) 02/13/19 12:55 Creatinine 1.0 mg/dL (0.7-1.3) 02/13/19 12:55 Est GFR ( Amer) > 60.0 ml/min (>90) 02/13/19 12:55 Est GFR (Non-Af Amer) > 60.0 ml/min 02/13/19 12:55 BUN/Creatinine Ratio 11.0 02/13/19 12:55 Glucose 125 mg/dL (70-105) H 02/13/19 12:55 Calcium 9.3 mg/dL (8.6-10.3) 02/13/19 12:55 Influenza A (Rapid) NEG FOR INF A 02/13/19 13:45 Influenza B (Rapid) NEG FOR INF B 02/13/19 13:45 - Physical Exam Vitals and I&O: Vital Signs Temp 98.3 F 02/14/19 08:00 Pulse 84 02/14/19 08:38 Resp 18 02/14/19 08:00 BP 132/77 02/14/19 08:38 Pulse Ox 93 02/14/19 08:00 Intake & Output 02/13/19 02/14/19 02/14/19 18:59 06:59 18:59 Intake Total 610 1358.667 Output Total 400 Balance 210 1358.667 Weight (lbs) 105.233 kg 104.326 kg Intake: Intake, IV Amount 998.667 D5-0.45NS 1,000 ml @ 80 998.667 mls/hr IV .[id number] [facility] Rx #:[id number] Oral 610 360 Output: Urine 400 Other: # Voids 2 # Bowel Movements 0 0 Weight Source Bedscale Bedscale Active Medications: Current Medications Acetaminophen (Tylenol) 650 mg PO Q4H PRN PRN Reason: Pain Or Fever above 101 Stop: 04/14/19 13:43 Albuterol Sulfate (Albuterol 2.5mg/3ml Neb Ud) 2.5 mg HHN Q2HRT PRN PRN Reason: Shortness of Breath or Wheeze Stop: 04/14/19 13:43 Atorvastatin Calcium (Lipitor) 20 mg PO [facility]; Protocol Stop: 04/14/19 20:59 Last Admin: 02/13/19 20:39 Dose: 20 mg Benztropine Mesylate (Cogentin) 1 mg PO BID [facility] Stop: 04/14/19 16:59 Last Admin: 02/14/19 08:37 Dose: 1 mg Carbidopa/Levodopa (Sinemet 25mg-100 Mg) 1 tab PO TID [facility] Stop: 04/14/19 13:59 Last Admin: 02/14/19 08:37 Dose: 1 tab Docusate Sodium (Colace) 100 mg PO DAILY [facility] Stop: 04/15/19 08:59 Last Admin: 02/14/19 08:37 Dose: 100 mg Fenofibrate (Tricor) 134 mg PO DAILY [facility] Stop: 04/15/19 08:59 Last Admin: 02/14/19 08:37 Dose: 134 mg Dextrose/Sodium Chloride (D5-0.45ns) 1,000 mls @ 80 mls/hr IV .[id number] [facility] Stop: 04/14/19 13:44 Last Admin: 02/14/19 04:23 Dose: 80 mls/hr Ipratropium [place] (Atrovent Neb 0.5mg/2.5ml) 0.5 mg HHN Q2HR PRN PRN Reason: Shortness of Breath or Wheeze Stop: 04/14/19 13:39 Ipratropium [place] (Atrovent Neb 0.5mg/2.5ml) 0.5 mg IH Q2HRT PRN PRN Reason: Shortness of Breath or Wheeze Stop: 04/14/19 13:43 Levocarnitine (Carnitor) 330 mg PO TID [facility] Stop: 04/14/19 13:59 Last Admin: 02/14/19 08:38 Dose: 330 mg Losartan Potassium (Cozaar) 100 mg PO DAILY [facility] Stop: 04/15/19 08:59 Last Admin: 02/14/19 08:38 Dose: 100 mg Multivitamins/Vitamin C (Theragran) 1 tab PO DAILY [facility] Stop: 04/15/19 08:59 Last Admin: 02/14/19 08:38 Dose: 1 tab Mupirocin (Bactroban Oint) 1 appl NS BID [facility] Stop: 02/19/19 09:01 Ondansetron HCl (Zofran) 4 mg IV Q8H PRN PRN Reason: Nausea / Vomiting Stop: 04/14/19 13:43 Oxybutynin Chloride (Ditropan) 5 mg PO HS [facility] Stop: 04/14/19 20:59 Last Admin: 02/13/19 20:40 Dose: 5 mg Pantoprazole Sodium (Protonix) 40 mg PO QDAC [facility] Stop: 04/15/19 07:29 Last Admin: 02/14/19 06:59 Dose: 40 mg Polyethylene Glycol (Miralax) 17 gm PO BID [facility] Stop: 04/15/19 16:59 Quetiapine Fumarate (Seroquel) 50 mg PO TID [facility]; Protocol Stop: 04/14/19 13:59 Last Admin: 02/14/19 08:37 Dose: 50 mg Sodium Chloride (Nacl Tab) 1 gm PO BID [facility] Stop: 04/14/19 16:59 Last Admin: 02/14/19 08:38 Dose: 1 gm Valproate Sodium (Depakene) 1,000 mg PO BID [facility]; Protocol Stop: 04/14/19 16:59 Last Admin: 02/14/19 09:02 Dose: 1,000 mg Valproate Sodium (Depakene) 500 mg PO HS [facility]; Protocol Stop: 04/14/19 20:59 Last Admin: 02/13/19 20:40 Dose: 500 mg General: demented HEENT: NC/AT, PERRLA, EOMI Neck: Supple, No JVD Lungs: rales Cardiovascular: RRR, Normal S1, Normal S2, without murmur Abdomen: soft, non-tender, globular, positive bowel sound Extremities: excoriation, contracture Neurological: no change - Procedures Procedures: Procedures Procedure Code Date COLONOSCOPY W/LESION REMOVAL 11176 09/17/17 EXCISION OF ASCENDING COLON, ENDO, DIAGN [id number] 09/17/17 EXCISION OF RECTUM, ENDO [id number] 09/17/17 EXCISION OF TRANSVERSE COLON, ENDO [id number] 09/17/17 EXCISION OF TRANSVERSE COLON, ENDO, DIAGN [id number] 09/17/17 GROUP PSYCHOTHERAPY 24885 12/06/15 GROUP PSYCHOTHERAPY [id number] 12/06/15 OTHER GROUP THERAPY 94.44 06/02/14 RECREATIONAL THERAPY 93.81 07/28/11 Internal Medicine Assmt/Plan - Assessment Assessment: ASSESSMENT AND PLAN: Dysphagia, cough, congestion, large diaphragmatic hernia, stroke, obesity, hypercholesterolemia and psych disorder, Parkinson's. - Plan Plan: PLAN: start on ivf Continue pt on oxygen. We will refer the patient to Surgery as well as GI, will order CT of the abdomen. We will continue to monitor closely.
[2019-02-14] MEDS: POLYETHYLENE GLYCOL 3350 17 GM PACK PO SCH (16:31)
[2019-02-14] MEDS: Atorvastatin Calcium 10 MG TAB PO SCH (21:14)
[2019-02-15] MEDS: Pantoprazole 40 mg EC Tab PO SCH (06:41)
[2019-02-15 06:42] LABS: ALB/GLOB RATIO 1.1 (1.0-1.8); ALBUMIN 3.5 gm/dL (4.2-5.5); ALKALINE PHOSPHATASE 42 U/L (34-104); ANION GAP 9.4 (7.0-16.0); BILIRUBIN,TOTAL 0.5 mg/dL (0.3-1.0); BUN - UREA NITROGEN 10 mg/dL (7-25); CARBON DIOXIDE 28.4 mEq/L (21.0-31.0); CHLORIDE 103 mEq/L (98-107); CREATININE - SERUM 0.8 mg/dL (0.7-1.3); GFR AFRICAN-AMERICAN > 60.0 ml/min (>90); GFR NON AFRICAN-AMERICAN > 60.0 ml/min; GLUCOSE 126 mg/dL (70-105); POTASSIUM SERUM 3.8 mEq/L (3.5-5.1); SGOT 17 U/L (13-39); SGPT/ALT 19 U/L (7-52); SODIUM SERUM 137 mEq/L (136-145); TOTAL PROTEIN,SERUM 6.6 gm/dL (6.0-8.3)
[2019-02-15 06:51] LABS: % BASOPHILS 0.7 % (0.0-2.0); % EOSINOPHILS 3.1 % (0.0-5.0); % LYMPHOCYTES 27.9 % (20.0-50.0); % MONOCYTES 9.3 % (2.0-10.0); EOSINOPHILE ABSOLUTE 0.2 Th/cmm (0.1-0.4); HEMATOCRIT 40.8 % (41.0-60); HEMOGLOBIN 12.7 gm/dL (12-16); LYMPHOCYTE ABSOLUTE 1.6 Th/cmm (1.5-3.0); MEAN CELL VOLUME 79.2 fl (80-99); MEAN CORPUSCULAR HEMOGLOBIN 24.7 pg (27.0-31.0); MEAN CORPUSCULAR HGB CONC 31.2 pg (28.0-36.0); MEAN PLATELET VOLUME 8.3 fl; MONOCYTE ABSOLUTE 0.5 Th/cmm (0.3-1.0); NEUTROPHILE ABSOLUTE 3.3 Th/cmm (1.8-8.0); PLATELET COUNT 193 Th/cmm (150-400); RED BLOOD COUNT 5.15 Mil/cmm (3.80-5.80); RED CELL DISTRIBUTION WIDTH 17.8 % (11.5-20.0); WHITE BLOOD COUNT 5.6 Th/cmm (4.8-10.8)
[2019-02-15] MEDS: Fenofibrate, Micronized 134 mg Cap PO SCH (08:20)
[2019-02-15] MEDS: Benztropine 1 MG TAB PO SCH ×2 (08:21→16:28)
[2019-02-15] MEDS: Multivitamin Tab PO SCH (08:21)
[2019-02-15] MEDS: POLYETHYLENE GLYCOL 3350 17 GM PACK PO SCH ×2 (08:22→16:28)
--- NOTE | 2019-02-15 09:31 | GI Progress Note ---
Subjective - Review of Systems Service Date: 02/15/19 Subjective: Passed swallow eval - on mechanical soft diet. Reports constipation. Objective - Results Result Diagrams: 02/15/19 06:05 02/15/19 06:05 Recent Labs: Laboratory Last Values WBC 5.6 Th/cmm (4.8-10.8) 02/15/19 06:05 RBC 5.15 Mil/cmm (3.80-5.80) 02/15/19 06:05 Hgb 12.7 gm/dL (12-16) 02/15/19 06:05 Hct 40.8 % (41.0-60) L 02/15/19 06:05 MCV 79.2 fl (80-99) L 02/15/19 06:05 MCH 24.7 pg (27.0-31.0) L 02/15/19 06:05 MCHC Differential 31.2 pg (28.0-36.0) 02/15/19 06:05 RDW 17.8 % (11.5-20.0) 02/15/19 06:05 Plt Count 193 Th/cmm (150-400) 02/15/19 06:05 MPV 8.3 fl 02/15/19 06:05 Neutrophils % 59.0 % (40.0-80.0) 02/15/19 06:05 Lymphocytes % 27.9 % (20.0-50.0) 02/15/19 06:05 Monocytes % 9.3 % (2.0-10.0) 02/15/19 06:05 Eosinophils % 3.1 % (0.0-5.0) 02/15/19 06:05 Basophils % 0.7 % (0.0-2.0) 02/15/19 06:05 Sodium 137 mEq/L (136-145) 02/15/19 06:05 Potassium 3.8 mEq/L (3.5-5.1) 02/15/19 06:05 Chloride 103 mEq/L (98-107) 02/15/19 06:05 Carbon Dioxide 28.4 mEq/L (21.0-31.0) 02/15/19 06:05 Anion Gap 9.4 (7.0-16.0) 02/15/19 06:05 BUN 10 mg/dL (7-25) 02/15/19 06:05 Creatinine 0.8 mg/dL (0.7-1.3) 02/15/19 06:05 Est GFR ( Amer) > 60.0 ml/min (>90) 02/15/19 06:05 Est GFR (Non-Af Amer) > 60.0 ml/min 02/15/19 06:05 BUN/Creatinine Ratio 12.5 02/15/19 06:05 Glucose 126 mg/dL (70-105) H 02/15/19 06:05 Calcium 9.0 mg/dL (8.6-10.3) 02/15/19 06:05 Total Bilirubin 0.5 mg/dL (0.3-1.0) 02/15/19 06:05 AST 17 U/L (13-39) 02/15/19 06:05 ALT 19 U/L (7-52) 02/15/19 06:05 Alkaline Phosphatase 42 U/L (34-104) 02/15/19 06:05 Ammonia 145 umol/L (16-53) H 02/15/19 06:05 B-Natriuretic Peptide 7.7 pg/mL (5.0-100.0) 02/15/19 06:05 Total Protein 6.6 gm/dL (6.0-8.3) 02/15/19 06:05 Albumin 3.5 gm/dL (4.2-5.5) L 02/15/19 06:05 Globulin 3.1 gm/dL 02/15/19 06:05 Albumin/Globulin Ratio 1.1 (1.0-1.8) 02/15/19 06:05 Influenza A (Rapid) NEG FOR INF A 02/13/19 13:45 Influenza B (Rapid) NEG FOR INF B 02/13/19 13:45 - Physical Exam Vitals and I&O: Vital Signs Temp 97.4 F 02/15/19 08:00 Pulse 66 02/15/19 08:21 Resp 18 02/15/19 08:00 BP 99/62 02/15/19 08:21 Pulse Ox 94 02/15/19 08:00 Intake & Output 02/14/19 02/15/19 02/15/19 18:59 06:59 18:59 Intake Total 2800 300 Output Total 3 Balance 2797 300 Weight (lbs) 104.326 kg 103.674 kg Intake: Intake, IV Amount 1000 D5-0.45NS 1,000 ml @ 80 1000 mls/hr IV .[id number] [facility] Rx #:[id number] Oral 1800 300 Output: Urine 3 Other: # Voids 800 3 # Bowel Movements 0 Weight Source Bedscale Bedscale Active Medications: Current Medications Acetaminophen (Tylenol) 650 mg PO Q4H PRN PRN Reason: Pain Or Fever above 101 Stop: 04/14/19 13:43 Albuterol Sulfate (Albuterol 2.5mg/3ml Neb Ud) 2.5 mg HHN Q2HRT PRN PRN Reason: Shortness of Breath or Wheeze Stop: 04/14/19 13:43 Atorvastatin Calcium (Lipitor) 20 mg PO HS [facility]; Protocol Stop: 04/14/19 20:59 Last Admin: 02/14/19 21:14 Dose: 20 mg Benztropine Mesylate (Cogentin) 1 mg PO BID [facility] Stop: 04/14/19 16:59 Last Admin: 02/15/19 08:21 Dose: 1 mg Carbidopa/Levodopa (Sinemet 25mg-100 Mg) 1 tab PO TID [facility] Stop: 04/14/19 13:59 Last Admin: 02/15/19 08:21 Dose: 1 tab Docusate Sodium (Colace) 100 mg PO DAILY [facility] Stop: 04/15/19 08:59 Last Admin: 02/15/19 08:21 Dose: 100 mg Fenofibrate (Tricor) 134 mg PO DAILY [facility] Stop: 04/15/19 08:59 Last Admin: 02/15/19 08:20 Dose: 134 mg Dextrose/Sodium Chloride (D5-0.45ns) 1,000 mls @ 80 mls/hr IV .[id number] [facility] Stop: 04/14/19 13:44 Last Admin: 02/14/19 21:17 Dose: 80 mls/hr Ipratropium [place] (Atrovent Neb 0.5mg/2.5ml) 0.5 mg HHN Q2HR PRN PRN Reason: Shortness of Breath or Wheeze Stop: 04/14/19 13:39 Ipratropium [place] (Atrovent Neb 0.5mg/2.5ml) 0.5 mg IH Q2HRT PRN PRN Reason: Shortness of Breath or Wheeze Stop: 04/14/19 13:43 Levocarnitine (Carnitor) 330 mg PO TID [facility] Stop: 04/14/19 13:59 Last Admin: 02/15/19 08:22 Dose: 330 mg Losartan Potassium (Cozaar) 100 mg PO DAILY [facility] Stop: 04/15/19 08:59 Last Admin: 02/15/19 08:21 Dose: Not Given Multivitamins/Vitamin C (Theragran) 1 tab PO DAILY [facility] Stop: 04/15/19 08:59 Last Admin: 02/15/19 08:21 Dose: 1 tab Mupirocin (Bactroban Oint) 1 appl NS BID [facility] Stop: 02/19/19 09:01 Last Admin: 02/15/19 08:22 Dose: 1 appl Ondansetron HCl (Zofran) 4 mg IV Q8H PRN PRN Reason: Nausea / Vomiting Stop: 04/14/19 13:43 Oxybutynin Chloride (Ditropan) 5 mg PO HS [facility] Stop: 04/14/19 20:59 Last Admin: 02/14/19 21:15 Dose: 5 mg Pantoprazole Sodium (Protonix) 40 mg PO QDAC [facility] Stop: 04/15/19 07:29 Last Admin: 02/15/19 06:41 Dose: 40 mg Polyethylene Glycol (Miralax) 17 gm PO BID [facility] Stop: 04/15/19 16:59 Last Admin: 02/15/19 08:22 Dose: 17 gm Quetiapine Fumarate (Seroquel) 50 mg PO TID [facility]; Protocol Stop: 04/14/19 13:59 Last Admin: 02/15/19 08:21 Dose: 50 mg Sodium Chloride (Nacl Tab) 1 gm PO BID [facility] Stop: 04/14/19 16:59 Last Admin: 02/15/19 08:20 Dose: 1 gm Valproate Sodium (Depakene) 1,000 mg PO BID [facility]; Protocol Stop: 04/14/19 16:59 Last Admin: 02/15/19 08:21 Dose: 1,000 mg Valproate Sodium (Depakene) 500 mg PO HS [facility]; Protocol Stop: 04/14/19 20:59 Last Admin: 02/14/19 21:15 Dose: 500 mg General: No acute distress HEENT: Atraumatic Cardiovascular: Regular rate Lungs: Clear to auscultation Abdomen: Bowel sounds, Soft, Distended (mild), no Tender - Procedures Procedures: Procedures Procedure Code Date COLONOSCOPY W/LESION REMOVAL 85021 09/17/17 EXCISION OF ASCENDING COLON, ENDO, DIAGN [id number] 09/17/17 EXCISION OF RECTUM, ENDO [id number] 09/17/17 EXCISION OF TRANSVERSE COLON, ENDO [id number] 09/17/17 EXCISION OF TRANSVERSE COLON, ENDO, DIAGN [id number] 09/17/17 GROUP PSYCHOTHERAPY 23495 12/06/15 GROUP PSYCHOTHERAPY [id number] 12/06/15 OTHER GROUP THERAPY 94.44 06/02/14 RECREATIONAL THERAPY 93.81 07/28/11 Assessment/Plan - Assessment Assessment: # Abdominal pain, perhaps due to constipation # Dysphagia, passed swallow evaluation; family refused GT # Hydrocephalus, s/p MACH[employer] DES[employer] shunt; Parkinson's disease - serial KUB checks to monitor constipation - laxatives orally and KS - oral diet as per speech with aspiration precautions - monitor labs
[2019-02-15] MEDS ORDERED: Magnesium Citrate 1.75 GM/300 mL Bottle PO ONE (09:32)
--- NOTE | 2019-02-15 09:59 | Internal Medicine Prog Note ---
Internal Medicine Subjective - Subjective Patient seen and examined:: with staff, chart reviewed Patient is:: awake, verbal, interactive, in bed, agitated Patient Complaints of:: congestion Per staff patient has:: no adverse event, no episodes of fall, poor oral intake , tolerating meds Internal Medicine Objective - Results Result Diagrams: 02/15/19 06:05 02/15/19 06:05 Recent Labs: Laboratory Last Values WBC 5.6 Th/cmm (4.8-10.8) 02/15/19 06:05 RBC 5.15 Mil/cmm (3.80-5.80) 02/15/19 06:05 Hgb 12.7 gm/dL (12-16) 02/15/19 06:05 Hct 40.8 % (41.0-60) L 02/15/19 06:05 MCV 79.2 fl (80-99) L 02/15/19 06:05 MCH 24.7 pg (27.0-31.0) L 02/15/19 06:05 MCHC Differential 31.2 pg (28.0-36.0) 02/15/19 06:05 RDW 17.8 % (11.5-20.0) 02/15/19 06:05 Plt Count 193 Th/cmm (150-400) 02/15/19 06:05 MPV 8.3 fl 02/15/19 06:05 Neutrophils % 59.0 % (40.0-80.0) 02/15/19 06:05 Lymphocytes % 27.9 % (20.0-50.0) 02/15/19 06:05 Monocytes % 9.3 % (2.0-10.0) 02/15/19 06:05 Eosinophils % 3.1 % (0.0-5.0) 02/15/19 06:05 Basophils % 0.7 % (0.0-2.0) 02/15/19 06:05 Sodium 137 mEq/L (136-145) 02/15/19 06:05 Potassium 3.8 mEq/L (3.5-5.1) 02/15/19 06:05 Chloride 103 mEq/L (98-107) 02/15/19 06:05 Carbon Dioxide 28.4 mEq/L (21.0-31.0) 02/15/19 06:05 Anion Gap 9.4 (7.0-16.0) 02/15/19 06:05 BUN 10 mg/dL (7-25) 02/15/19 06:05 Creatinine 0.8 mg/dL (0.7-1.3) 02/15/19 06:05 Est GFR ( Amer) > 60.0 ml/min (>90) 02/15/19 06:05 Est GFR (Non-Af Amer) > 60.0 ml/min 02/15/19 06:05 BUN/Creatinine Ratio 12.5 02/15/19 06:05 Glucose 126 mg/dL (70-105) H 02/15/19 06:05 Calcium 9.0 mg/dL (8.6-10.3) 02/15/19 06:05 Total Bilirubin 0.5 mg/dL (0.3-1.0) 02/15/19 06:05 AST 17 U/L (13-39) 02/15/19 06:05 ALT 19 U/L (7-52) 02/15/19 06:05 Alkaline Phosphatase 42 U/L (34-104) 02/15/19 06:05 Ammonia 145 umol/L (16-53) H 02/15/19 06:05 B-Natriuretic Peptide 7.7 pg/mL (5.0-100.0) 02/15/19 06:05 Total Protein 6.6 gm/dL (6.0-8.3) 02/15/19 06:05 Albumin 3.5 gm/dL (4.2-5.5) L 02/15/19 06:05 Globulin 3.1 gm/dL 02/15/19 06:05 Albumin/Globulin Ratio 1.1 (1.0-1.8) 02/15/19 06:05 Influenza A (Rapid) NEG FOR INF A 02/13/19 13:45 Influenza B (Rapid) NEG FOR INF B 02/13/19 13:45 - Physical Exam Vitals and I&O: Vital Signs Temp 97.4 F 02/15/19 08:00 Pulse 66 02/15/19 08:21 Resp 18 02/15/19 08:00 BP 99/62 02/15/19 08:21 Pulse Ox 94 02/15/19 08:00 Intake & Output 0402/15/19 02/15/19 18:59 06:59 18:59 Intake Total 2800 300 Output Total 3 Balance 2797 300 Weight (lbs) 104.326 kg 103.674 kg Intake: Intake, IV Amount 1000 D5-0.45NS 1,000 ml @ 80 1000 mls/hr IV .[id number] [facility] Rx #:[id number] Oral 1800 300 Output: Urine 3 Other: # Voids 800 3 # Bowel Movements 0 Weight Source Bedscale Bedscale Active Medications: Current Medications Acetaminophen (Tylenol) 650 mg PO Q4H PRN PRN Reason: Pain Or Fever above 101 Stop: 04/14/19 13:43 Albuterol Sulfate (Albuterol 2.5mg/3ml Neb Ud) 2.5 mg HHN Q2HRT PRN PRN Reason: Shortness of Breath or Wheeze Stop: 04/14/19 13:43 Atorvastatin Calcium (Lipitor) 20 mg PO [facility]; Protocol Stop: 04/14/19 20:59 Last Admin: 02/14/19 21:14 Dose: 20 mg Benztropine Mesylate (Cogentin) 1 mg PO BID [facility] Stop: 04/14/19 16:59 Last Admin: 02/15/19 08:21 Dose: 1 mg Carbidopa/Levodopa (Sinemet 25mg-100 Mg) 1 tab PO TID [facility] Stop: 04/14/19 13:59 Last Admin: 02/15/19 08:21 Dose: 1 tab Fenofibrate (Tricor) 134 mg PO DAILY [facility] Stop: 04/15/19 08:59 Last Admin: 02/15/19 08:20 Dose: 134 mg Ipratropium [place] (Atrovent Neb 0.5mg/2.5ml) 0.5 mg HHN Q2HR PRN PRN Reason: Shortness of Breath or Wheeze Stop: 04/14/19 13:39 Ipratropium [place] (Atrovent Neb 0.5mg/2.5ml) 0.5 mg IH Q2HRT PRN PRN Reason: Shortness of Breath or Wheeze Stop: 04/14/19 13:43 Levocarnitine (Carnitor) 330 mg PO TID [facility] Stop: 04/14/19 13:59 Last Admin: 02/15/19 08:22 Dose: 330 mg Multivitamins/Vitamin C (Theragran) 1 tab PO DAILY [facility] Stop: 04/15/19 08:59 Last Admin: 02/15/19 08:21 Dose: 1 tab Mupirocin (Bactroban Oint) 1 appl NS BID [facility] Stop: 02/19/19 09:01 Last Admin: 02/15/19 08:22 Dose: 1 appl Ondansetron HCl (Zofran) 4 mg IV Q8H PRN PRN Reason: Nausea / Vomiting Stop: 04/14/19 13:43 Oxybutynin Chloride (Ditropan) 5 mg PO HS [facility] Stop: 04/14/19 20:59 Last Admin: 02/14/19 21:15 Dose: 5 mg Pantoprazole Sodium (Protonix) 40 mg PO QDAC [facility] Stop: 04/15/19 07:29 Last Admin: 02/15/19 06:41 Dose: 40 mg Polyethylene Glycol (Miralax) 17 gm PO BID [facility] Stop: 04/15/19 16:59 Last Admin: 02/15/19 08:22 Dose: 17 gm Quetiapine Fumarate (Seroquel) 50 mg PO TID [facility]; Protocol Stop: 04/14/19 13:59 Last Admin: 02/15/19 08:21 Dose: 50 mg Sodium Chloride (Nacl Tab) 1 gm PO BID [facility] Stop: 04/14/19 16:59 Last Admin: 02/15/19 08:20 Dose: 1 gm Valproate Sodium (Depakene) 1,000 mg PO BID [facility]; Protocol Stop: 04/14/19 16:59 Last Admin: 02/15/19 08:21 Dose: 1,000 mg Valproate Sodium (Depakene) 500 mg PO HS [facility]; Protocol Stop: 04/14/19 20:59 Last Admin: 02/14/19 21:15 Dose: 500 mg General: demented HEENT: NC/AT, PERRLA, EOMI Neck: Supple, No JVD Lungs: rales Cardiovascular: RRR, Normal S1, Normal S2, without murmur Abdomen: soft, non-tender, globular, positive bowel sound Extremities: excoriation, contracture Neurological: no change - Procedures Procedures: Procedures Procedure Code Date COLONOSCOPY W/LESION REMOVAL 91476 09/17/17 EXCISION OF ASCENDING COLON, ENDO, DIAGN [id number] 09/17/17 EXCISION OF RECTUM, ENDO [id number] 09/17/17 EXCISION OF TRANSVERSE COLON, ENDO [id number] 09/17/17 EXCISION OF TRANSVERSE COLON, ENDO, DIAGN [id number] 09/17/17 GROUP PSYCHOTHERAPY 13110 12/06/15 GROUP PSYCHOTHERAPY [id number] 12/06/15 OTHER GROUP THERAPY 94.44 06/02/14 RECREATIONAL THERAPY 93.81 07/28/11 Internal Medicine Assmt/Plan - Assessment Assessment: ASSESSMENT AND PLAN: Dysphagia, cough, congestion, large diaphragmatic hernia, stroke, obesity, hypercholesterolemia and psych disorder, Parkinson's. - Plan Plan: PLAN: start on ivf Continue pt on oxygen. We will refer the patient to Surgery as well as GI, will order CT of the abdomen. We will continue to monitor closely.
[2019-02-15] MEDS: D5-0.45NS 1,000 ML IV SCH (13:15)
--- NOTE | 2019-02-15 13:21 | Consultation ---
DATE OF CONSULTATION: SURGICAL CONSULTATION NOTE HISTORY OF PRESENT ILLNESS: He is a 68-year-old male that resides at a alf facility, admitted for cough and congestion for 1 month, sputum production, diagnosis on bronchoscopy frequent choking, history of right-sided head trauma requiring craniotomy, possible pneumonia in the left base. PAST MEDICAL HISTORY: Includes hypertension, asthma, COPD, CVA, TIA, Parkinson's disease, hyperlipidemia, hyponatremia, seizure disorder. SOCIAL HISTORY: History of former smoking and drinking alcohol. PAST SURGICAL HISTORY: Right craniotomy for head injury when his horse fell on his head. LABORATORY DATA: Chest x-ray shows cardiomegaly and elevation of right hemidiaphragm, possible left pneumonia in the base. He appears to have a right-sided diaphragmatic hernia not noted on the chest x-ray of 01/28/2019. He had a CT of the abdomen and pelvis done on 02/13/2019, which revealed elevation of right hemidiaphragm, mildly prominent retrocrural lymph node nonspecific, copious stool throughout the colon, correlate for constipation, small fat containing left inguinal hernia. Surgical consultation regarding hernias are noted on CT scan. ALLERGIES: He has allergy to PENICILLIN. PHYSICAL EXAMINATION: GENERAL: He is afebrile. VITAL SIGNS: Otherwise stable. His BMI is 31. Weight is 103.67 kilograms. He is resting in bed comfortably, in no acute distress. HEENT AND NECK: Within normal limits. He has a well-healed right craniotomy incision. Neck, he has no JVD or carotid bruits. CHEST: Clear to auscultation bilaterally. CARDIAC: Regular rhythm and rate. ABDOMEN: Soft, nontender, nondistended. There is no guarding, rebound or generalized peritoneal signs. NEUROVASCULAR AND EXTREMITIES: Otherwise normal. No CVA, flank, or paraspinal tenderness. Left inguinal site, there is no obvious inguinal hernia noted. It is nontender. GENITOURINARY: Otherwise unremarkable. His white blood cell count 5.6, H and H is 12.7 and 40.8, platelet count 193. His Chem-7 is otherwise unremarkable. His chest x-ray and CT abdomen and pelvis had been reviewed. The patient had swallow evaluation, which revealed that there is no significant reflux disease and he has been cleared for soft mechanical diet. In review of the chest x-ray and CT abdomen and pelvis, there is no obvious evidence of diaphragmatic hernia. There is elevation of the right hemidiaphragm, but the CT abdomen and pelvis does not show an obvious paraesophageal hernia. He has a small fat containing left inguinal hernia, which is of clinically asymptomatic and uncomplicated at this time. Given his medical comorbidities, would advise against elective left inguinal hernia surgery at this time, it is unlikely to cause him problems or become a complication in the future, but if it does this can be addressed later. Certainly, this can be something that is dealt with as an outpatient as well. No active surgical issues at this time. No further radiographic studies or surgical intervention required. JOB# [id number]
--- NOTE | 2019-02-15 13:21 | Consultation ---
DATE OF CONSULTATION: 02/14/2019 INPATIENT GASTROINTESTINAL CONSULTATION CONSULTING PHYSICIAN: Dr. Harden. REASON FOR CONSULTATION: Dysphagia. HISTORY OF PRESENT ILLNESS: The patient is a 68-year-old male with past medical history significant for previous stroke, Parkinson's dementia, hypercholesterolemia, obesity, ROLL THREADER OPERATOR shunt for hydrocephalus who has been admitted to the hospital for cough and congestion, possible aspiration event and dysphagia. The patient reports that he has trouble with mostly meat products and he thinks this is what caused the cough and congestion and aspiration event a few days prior. Otherwise, he states when he eats vegetables he does much better or nonmeat products in general. He has never before had an EGD, but he thinks he has had swallowing evaluations in the past. He is adamant that he does not want to have a G-tube placed in the case that he may need one. PAST MEDICAL HISTORY: Previous stroke, obesity, hypercholesterolemia, hydrocephalus with a ROLL THREADER OPERATOR shunt and previous craniotomy, Parkinson's disease. PAST SURGICAL HISTORY: ROLL THREADER OPERATOR shunt placement, craniotomy. FAMILY HISTORY: Noncontributory. SOCIAL HISTORY: The [facility] is a [facility] resident, requires 24-hour care. No illicit drug use. ALLERGIES: There is reported allergy to PENICILLIN. REVIEW OF SYSTEMS: A 12-point review of systems was performed with the patient's negative and the pertinent positives mentioned in history of present illness. CURRENT MEDICATIONS: Include Tylenol, albuterol, Lipitor, Cogentin, levodopa, IV fluid, Colace, fenofibrate, Atrovent, lactulose, losartan, multivitamin, Zofran, oxybutynin, Protonix, Seroquel, sodium Depakote. PHYSICAL EXAMINATION: VITAL SIGNS: The blood pressure is 132/77, pulse 84 beats per minute, temperature 98.3, respiratory rate 18, oxygenation is 93% on 2 liters. GENERAL: The patient is sitting upright in bed. He is alert and oriented x 3, no apparent distress. He is slow to speak, but fully alert. HEAD, EARS, EYES, NOSE AND THROAT: Normocephalic, atraumatic appearing head. There is a scar where previous craniotomy was done. Pupils are equal and reactive. Extraocular muscles appear to be intact. Dry mucous membranes are noted. NECK: Supple. There is JVD. There is no thyromegaly or lymphadenopathy. CHEST: There are crackles bilaterally. CARDIOVASCULAR: S1, S2 are present, regular rate and rhythm. ABDOMEN: Obese, soft, nontender to palpation. No guarding, rebound or fluid distention. EXTREMITIES: 1+ pitting edema bilaterally with venous stasis changes. SKIN: No obvious jaundice. LABORATORY DATA: White blood cell count 5.7, hemoglobin 12.7, platelet count 195. Sodium 133, BUN 11, creatinine 1.0. IMAGING: Abdomen and pelvis CT scan was performed. This was done without contrast showed elevation of the right hemidiaphragm. No hepatic or pancreatic lesion. There is pancreatic atrophy. There is an inguinal hernia. Copious stool throughout the colon. IMPRESSION: This is a 68-year-old male with history of Parkinson's disease, previous stroke, hydrocephalus requiring ventriculoperitoneal shunt and craniotomy admitted to the hospital with chest congestion, possible aspiration and dysphagia. 1. Dysphagia. 2. Previous stroke. 3. Hydrocephalus with ventriculoperitoneal shunt in place and craniotomy in the past. 4. Aspiration and chest congestion. DISCUSSION: Certainly, this patient has an etiology for dysphagia, given that he has Parkinson's disease as well as history of stroke in the past. Thus, he may have aspirated and he thinks this was due to a meat product. We should start the evaluation with a swallowing evaluation to assess his current ability to swallow and then an EGD is certainly also indicated for dysphagia. We can do the EGD if he is still in the hospital next week. Of course, this can also be arranged in the outpatient setting as there is no urgent need for this. Potently, the patient has told me he does not want to have a G-tube placed even if the speech pathologist determined that he would need one. RECOMMENDATIONS: 1. Speech and swallow evaluation. 2. EGD can be done next week if he is still here, otherwise it can be arranged as an outpatient. 3. Diet should be as recommended by speech and swallow. 4. We will change the laxative to MiraLax given lactulose can cause more abdominal bloating. Thank you for allowing me to participate in his care. Please call with any further questions. JOB# [id number]
[2019-02-15] MEDS: Lactulose 10 Gm/15 mL 30mL UDC PO SCH (16:26)
[2019-02-15] MEDS: Atorvastatin Calcium 10 MG TAB PO SCH (20:49)
[2019-02-16] MEDS: Pantoprazole 40 mg EC Tab PO SCH (06:37)
[2019-02-16] MEDS: D5-0.45NS 1,000 ML IV SCH (06:52)
[2019-02-16] MEDS: POLYETHYLENE GLYCOL 3350 17 GM PACK PO SCH ×2 (09:00→16:59)
[2019-02-16] MEDS: Benztropine 1 MG TAB PO SCH ×2 (09:30→16:58)
[2019-02-16] MEDS: Fenofibrate, Micronized 134 mg Cap PO SCH (09:30)
[2019-02-16] MEDS: Multivitamin Tab PO SCH (09:31)
--- NOTE | 2019-02-16 09:32 | Diagnostic Imaging Report ---
Exam: KUB of the abdomen HISTORY: Constipation. Findings: Portable supine examination of the abdomen at 0737 hours reviewed. The study demonstrates a air distention of the right colon. Fecal content is noted in cecum. The bowel gas to be nonspecific. Degenerative changes lumbar sacral spine appreciated. IMPRESSION: Moderate amount of fecal content in the cecum. No evidence for fecal impaction.
--- NOTE | 2019-02-16 10:11 | GI Progress Note ---
Subjective - Review of Systems Service Date: 02/16/19 Subjective: Feels better - had BM. Tolerating mechanical soft diet. Objective - Results Result Diagrams: 02/15/19 06:05 02/15/19 06:05 Recent Labs: Laboratory Last Values WBC 5.6 Th/cmm (4.8-10.8) 02/15/19 06:05 RBC 5.15 Mil/cmm (3.80-5.80) 02/15/19 06:05 Hgb 12.7 gm/dL (12-16) 02/15/19 06:05 Hct 40.8 % (41.0-60) L 02/15/19 06:05 MCV 79.2 fl (80-99) L 02/15/19 06:05 MCH 24.7 pg (27.0-31.0) L 02/15/19 06:05 MCHC Differential 31.2 pg (28.0-36.0) 02/15/19 06:05 RDW 17.8 % (11.5-20.0) 02/15/19 06:05 Plt Count 193 Th/cmm (150-400) 02/15/19 06:05 MPV 8.3 fl 02/15/19 06:05 Neutrophils % 59.0 % (40.0-80.0) 02/15/19 06:05 Lymphocytes % 27.9 % (20.0-50.0) 02/15/19 06:05 Monocytes % 9.3 % (2.0-10.0) 02/15/19 06:05 Eosinophils % 3.1 % (0.0-5.0) 02/15/19 06:05 Basophils % 0.7 % (0.0-2.0) 02/15/19 06:05 Sodium 137 mEq/L (136-145) 02/15/19 06:05 Potassium 3.8 mEq/L (3.5-5.1) 02/15/19 06:05 Chloride 103 mEq/L (98-107) 02/15/19 06:05 Carbon Dioxide 28.4 mEq/L (21.0-31.0) 02/15/19 06:05 Anion Gap 9.4 (7.0-16.0) 02/15/19 06:05 BUN 10 mg/dL (7-25) 02/15/19 06:05 Creatinine 0.8 mg/dL (0.7-1.3) 02/15/19 06:05 Est GFR ( Amer) > 60.0 ml/min (>90) 02/15/19 06:05 Est GFR (Non-Af Amer) > 60.0 ml/min 02/15/19 06:05 BUN/Creatinine Ratio 12.5 02/15/19 06:05 Glucose 126 mg/dL (70-105) H 02/15/19 06:05 Calcium 9.0 mg/dL (8.6-10.3) 02/15/19 06:05 Total Bilirubin 0.5 mg/dL (0.3-1.0) 02/15/19 06:05 AST 17 U/L (13-39) 02/15/19 06:05 ALT 19 U/L (7-52) 02/15/19 06:05 Alkaline Phosphatase 42 U/L (34-104) 02/15/19 06:05 Ammonia 145 umol/L (16-53) H 02/15/19 06:05 B-Natriuretic Peptide 7.7 pg/mL (5.0-100.0) 02/15/19 06:05 Total Protein 6.6 gm/dL (6.0-8.3) 02/15/19 06:05 Albumin 3.5 gm/dL (4.2-5.5) L 02/15/19 06:05 Globulin 3.1 gm/dL 02/15/19 06:05 Albumin/Globulin Ratio 1.1 (1.0-1.8) 02/15/19 06:05 Influenza A (Rapid) NEG FOR INF A 02/13/19 13:45 Influenza B (Rapid) NEG FOR INF B 02/13/19 13:45 - Physical Exam Vitals and I&O: Vital Signs Temp 97.4 F 02/16/19 07:43 Pulse 98 02/16/19 09:32 Resp 16 02/16/19 09:00 BP 126/67 02/16/19 09:32 Pulse Ox 97 02/16/19 09:00 Intake & Output 02/15/19 02/16/19 02/16/19 18:59 06:59 18:59 Intake Total 2200 1120.833 Output Total 3 2 Balance 2197 1118.833 Weight (lbs) 103.419 kg 103.419 kg 103.419 kg Intake: Intake, IV Amount 880.833 D5-0.45NS 1,000 ml @ 50 880.833 mls/hr IV .Q20H [facility] Rx#: [id number] Oral 2200 240 Output: Urine 3 2 Other: # Voids 650 # Bowel Movements 2 0 Weight Source Bedscale Bedscale Bedscale Active Medications: Current Medications Acetaminophen (Tylenol) 650 mg PO Q4H PRN PRN Reason: Pain Or Fever above 101 Stop: 04/14/19 13:43 Albuterol Sulfate (Albuterol 2.5mg/3ml Neb Ud) 2.5 mg HHN Q2HRT PRN PRN Reason: Shortness of Breath or Wheeze Stop: 04/14/19 13:43 Atorvastatin Calcium (Lipitor) 20 mg PO HS [facility]; Protocol Stop: 04/14/19 20:59 Last Admin: 02/15/19 20:49 Dose: 20 mg Benztropine Mesylate (Cogentin) 1 mg PO BID [facility] Stop: 04/14/19 16:59 Last Admin: 02/16/19 09:30 Dose: 1 mg Carbidopa/Levodopa (Sinemet 25mg-100 Mg) 1 tab PO TID [facility] Stop: 04/14/19 13:59 Last Admin: 02/16/19 09:30 Dose: 1 tab Docusate Sodium (Colace) 250 mg PO DAILY [facility] Stop: 04/17/19 08:59 Last Admin: 02/16/19 09:31 Dose: 250 mg Fenofibrate (Tricor) 134 mg PO DAILY [facility] Stop: 04/15/19 08:59 Last Admin: 02/16/19 09:30 Dose: 134 mg Dextrose/Sodium Chloride (D5-0.45ns) 1,000 mls @ 50 mls/hr IV .Q20H [facility] Stop: 04/16/19 09:59 Last Admin: 02/16/19 06:52 Dose: 50 mls/hr Ipratropium [place] (Atrovent Neb 0.5mg/2.5ml) 0.5 mg HHN Q2HR PRN PRN Reason: Shortness of Breath or Wheeze Stop: 04/14/19 13:39 Ipratropium [place] (Atrovent Neb 0.5mg/2.5ml) 0.5 mg IH Q2HRT PRN PRN Reason: Shortness of Breath or Wheeze Stop: 04/14/19 13:43 Lactulose (Cephulac) 30 gm PO BID [facility] Stop: 04/16/19 16:59 Last Admin: 02/15/19 16:26 Dose: 30 gm Levocarnitine (Carnitor) 330 mg PO TID [facility] Stop: 04/14/19 13:59 Last Admin: 02/15/19 20:49 Dose: 330 mg Losartan Potassium (Cozaar) 50 mg PO DAILY [facility] Stop: 04/17/19 08:59 Last Admin: 02/16/19 09:32 Dose: 50 mg Multivitamins/Vitamin C (Theragran) 1 tab PO DAILY [facility] Stop: 04/15/19 08:59 Last Admin: 02/16/19 09:31 Dose: 1 tab Mupirocin (Bactroban Oint) 1 appl NS BID [facility] Stop: 02/19/19 09:01 Last Admin: 02/15/19 16:29 Dose: 1 appl Ondansetron HCl (Zofran) 4 mg IV Q8H PRN PRN Reason: Nausea / Vomiting Stop: 04/14/19 13:43 Oxybutynin Chloride (Ditropan) 5 mg PO HS [facility] Stop: 04/14/19 20:59 Last Admin: 02/15/19 20:49 Dose: 5 mg Pantoprazole Sodium (Protonix) 40 mg PO QDAC [facility] Stop: 04/15/19 07:29 Last Admin: 02/16/19 06:37 Dose: 40 mg Polyethylene Glycol (Miralax) 17 gm PO BID [facility] Stop: 04/15/19 16:59 Last Admin: 02/15/19 16:28 Dose: 17 gm Quetiapine Fumarate (Seroquel) 50 mg PO TID [facility]; Protocol Stop: 04/14/19 13:59 Last Admin: 02/16/19 09:30 Dose: 50 mg Sodium Chloride (Nacl Tab) 1 gm PO BID [facility] Stop: 04/14/19 16:59 Last Admin: 02/16/19 09:30 Dose: 1 gm Valproate Sodium (Depakene) 1,000 mg PO BID [facility]; Protocol Stop: 04/14/19 16:59 Last Admin: 02/15/19 16:27 Dose: 1,000 mg Valproate Sodium (Depakene) 500 mg PO HS [facility]; Protocol Stop: 04/14/19 20:59 Last Admin: 02/15/19 20:49 Dose: 500 mg General: No acute distress HEENT: Atraumatic Cardiovascular: Regular rate Lungs: Clear to auscultation Abdomen: Bowel sounds, Soft, Distended (mild), no Tender - Procedures Procedures: Procedures Procedure Code Date COLONOSCOPY W/LESION REMOVAL 05501 09/17/17 EXCISION OF ASCENDING COLON, ENDO, DIAGN [id number] 09/17/17 EXCISION OF RECTUM, ENDO 8NTX9PM 09/17/17 EXCISION OF TRANSVERSE COLON, ENDO [id number] 09/17/17 EXCISION OF TRANSVERSE COLON, ENDO, DIAGN [id number] 09/17/17 GROUP PSYCHOTHERAPY 33925 12/06/15 GROUP PSYCHOTHERAPY [id number] 12/06/15 OTHER GROUP THERAPY 94.44 06/02/14 RECREATIONAL THERAPY 93.81 07/28/11 Assessment/Plan - Assessment Assessment: # Abdominal pain, perhaps due to constipation # Dysphagia, passed swallow evaluation; family refused GT # Hydrocephalus, s/p SLAT BASKET TOP MAKER shunt; Parkinson's disease - serial KUB checks to monitor constipation - laxatives orally and PA - oral diet as per speech with aspiration precautions - monitor labs
[2019-02-16] MEDS: Lactulose 10 Gm/15 mL 30mL UDC PO SCH ×2 (13:51→16:58)
--- NOTE | 2019-02-16 14:16 | Discharge Summary ---
DATE OF DISCHARGE: 02/16/2019 CHIEF COMPLAINT: Cough and difficulty swallowing, abdominal pain. HISTORY OF PRESENT ILLNESS: Dysphagia, diaphragmatic hernia, constipation, cough, congestion, possible aspiration, hydrocephalus with a SLIPCOVER CUTTER shunt, history of stroke, obesity, hypercholesterolemia, colostomy, psych disorder, Parkinson's history. This is a 68-year-old male admitted with history of stroke, obesity, hyperglycemia, psych disorder, Parkinson, admitted from nursing facility secondary to cough and congestion and difficulty swallowing. The patient was brought in the ER and admitted for possible aspiration. The patient noted to have a large diaphragmatic hernia pushing the lungs cords. PHYSICAL EXAMINATION: VITAL SIGNS: Blood pressure 170/50, respiration 20, pulse 77, temperature 97.8. GENERAL: Elderly male, appears his stated age. NECK: Supple. No mass. LUNGS: Equal breath sounds, few rhonchi. HEART: Regular rate and rhythm. Systolic ejection murmur. ABDOMEN: Soft, globular. EXTREMITIES: Positive excoriation. NEUROLOGIC: Limited. HOSPITAL COURSE: The patient was admitted to telemetry. Continue oxygen for treatment, empirically started on inhibitor therapy. The patient will be refer to GI. No endoscopy needed. The patient also saw with Dr. Olivares and the patient was referred to surgery for diaphragmatic hernia. No surgical intervention needed at this time. The patient has remained stable and cleared for discharge. CONDITION ON DISCHARGE: Fair. DISCHARGE INSTRUCTIONS: The patient to continue with current care and we will follow with GI on outpatient basis. [facility]# [id number]
[2019-02-18 06:10] LABS: FOLIC ACID 18.4 ng/mL (>3.0)
== END 2019-02-16 18:45 | DRG 391 ==
LOC: ER 12:27 → TELE 13:48
PROVIDERS: ADMIT Internal Medicine; ATTEND Internal Medicine
DX: K44.9 Diaphragmatic hernia without obstruction or gangrene (principal); J18.9 Pneumonia, unspecified organism; K59.00 Constipation, unspecified; G20 Parkinson's disease; I10 Essential (primary) hypertension; J44.9 Chronic obstructive pulmonary disease, unspecified; E78.5 Hyperlipidemia, unspecified; G40.909 Epilepsy, unspecified, not intractable, without status epilepticus; E66.9 Obesity, unspecified; F99 Mental disorder, not otherwise specified; E78.00 Pure hypercholesterolemia, unspecified; R13.10 Dysphagia, unspecified; F02.80 Dementia in other diseases classified elsewhere, unspecified severity, without behavioral disturbance, psychotic disturbance, mood disturbance, and anxiety; Z88.0 Allergy status to penicillin; Z86.73 Personal history of transient ischemic attack (TIA), and cerebral infarction without residual deficits; Z68.30 Body mass index [BMI] 30.0-30.9, adult
CPT/HCPCS: 36415-UA; 71045-TC; 74000-TC; 80048-TC; 80053-TC; 82140-TC; 82607-90; 82746-90; 82948-90; 83880-TC; 85025-TC; 87804-TC; 93005; 94760; Z7610

== ENCOUNTER 2019-04-10 12:24 | Inpatient (IN) | payer MEDICARE, BC ==
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
[2019-04-10 13:32] LABS: % EOSINOPHILS 4.1 % (0.0-5.0); % LYMPHOCYTES 28.2 % (20.0-50.0); % MONOCYTES 6.5 % (2.0-10.0); % NEUTROPHILS 60.2 % (40.0-80.0); EOSINOPHILE ABSOLUTE 0.2 Th/cmm (0.1-0.4); HEMATOCRIT 41.7 % (41.0-60); HEMOGLOBIN 13.1 gm/dL (12-16); LYMPHOCYTE ABSOLUTE 1.3 Th/cmm (1.5-3.0); MEAN CELL VOLUME 78.7 fl (80-99); MEAN CORPUSCULAR HEMOGLOBIN 24.7 pg (27.0-31.0); MEAN CORPUSCULAR HGB CONC 31.4 pg (28.0-36.0); MONOCYTE ABSOLUTE 0.3 Th/cmm (0.3-1.0); NEUTROPHILE ABSOLUTE 2.7 Th/cmm (1.8-8.0); PLATELET COUNT 168 Th/cmm (150-400); RED CELL DISTRIBUTION WIDTH 18.1 % (11.5-20.0); WHITE BLOOD COUNT 4.5 Th/cmm (4.8-10.8)
[2019-04-10 13:43] LABS: ALB/GLOB RATIO 1.3 (1.0-1.8); ALKALINE PHOSPHATASE 53 U/L (34-104); BILIRUBIN,TOTAL 0.5 mg/dL (0.3-1.0); BUN - UREA NITROGEN 12 mg/dL (7-25); CALCIUM SERUM 9.4 mg/dL (8.6-10.3); CARBON DIOXIDE 26.6 mEq/L (21.0-31.0); CHLORIDE 102 mEq/L (98-107); CHOLESTEROL 161 mg/dL (<200); CREATININE - SERUM 0.7 mg/dL (0.7-1.3); GFR AFRICAN-AMERICAN > 60.0 ml/min (>90); GFR NON AFRICAN-AMERICAN > 60.0 ml/min; GLUCOSE 148 mg/dL (70-105); HDL -HIGH DENSITY LIPOPROTEIN 36 mg/dL (23-92); POTASSIUM SERUM 3.6 mEq/L (3.5-5.1); SGOT 24 U/L (13-39); SGPT/ALT 17 U/L (7-52); SODIUM SERUM 136 mEq/L (136-145); TOTAL PROTEIN,SERUM 7.2 gm/dL (6.0-8.3); TRIGLYCERIDES 181 mg/dL (<150)
--- NOTE | 2019-04-10 14:05 | Diagnostic Imaging Report ---
CHEST X-RAY: AP view INDICATION: Hypoxemia COMPARISON: 02/13/2019 FINDINGS: Low lung volumes are seen with small left effusion. There is elevation of the right hemidiaphragm. Mild congestive changes are noted. Cardiomegaly is noted. IMPRESSION: Low lung volumes a small left effusion. Infiltrate of the left base cannot be excluded. There is also mild congestion Cardiomegaly.
--- NOTE | 2019-04-10 14:07 | Diagnostic Imaging Report ---
Right shoulder 3 views Indication: pain Comparison: none Findings: Moderate to advanced the AC joint degenerative changes are noted. Mild to moderate: Annual joint degenerative changes are noted. No evidence of an acute fracture or dislocation. No focal soft tissue swelling. A catheter is seen projecting along the right neck region. Impression: Degenerative changes greatest at the AC joint. No evidence of an acute fracture. Catheter is seen projecting along the right right neck region correlate clinically. In the setting of trauma, if clinical symptoms persist and there is continued concern for an occult fracture, follow up exams in 5-7 days is suggested.
[2019-04-10 15:50] LABS: URINE SOURCE RANDOM
[2019-04-10 15:51] LABS: URINE BILIRUBIN NEGATIVE (NEGATIVE); URINE BLOOD NEGATIVE (NEGATIVE); URINE GLUCOSE (UA) NEGATIVE (NEGATIVE); URINE KETONE NEGATIVE (NEGATIVE); URINE LEUKOCYTE ESTERASE NEGATIVE (NEGATIVE); URINE NITRATE NEGATIVE (NEGATIVE); URINE PROTEIN NEGATIVE (NEGATIVE)
[2019-04-10 15:55] LABS: URINE CLARITY CLEAR (CLEAR); URINE COLOR YELLOW; URINE MICROSCOPIC INDICATED? YES; URINE RBC 0-2 /hpf (0-5); URINE WBC 0-2 /hpf (0-5)
[2019-04-10 15:56] LABS: URINE BACTERIA FEW /hpf (NONE SEEN); URINE EPITHELIAL CELLS NONE SEEN /lpf (FEW)
[2019-04-10 16:33] VITALS: BP 126/76
--- NOTE | 2019-04-10 17:28 | History & Physical ---
ADMIT DATE: 04/10/2019 CHIEF COMPLAINT: Admitted for medical management. 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 Has also craniotomy, previous trach in the past, admitted the service of Dr. Mabry. The patient denies any fevers or chills. The patient is agitated, unable to provide a meaningful history and review of systems. PAST MEDICAL HISTORY: As mentioned in history present illness. PAST SURGICAL HISTORY: As mentioned above. ALLERGIES: PENICILLIN. MEDICATIONS: The patient is on vitamin C, Cogentin, Sinemet, Colace, fenofibrate, lactulose, Keppra, multivitamins, Ditropan, Protonix, Seroquel, and sodium chloride. FAMILY HISTORY: Noncontributory. SOCIAL HISTORY: The patient is a long-term patient requiring 24-hour total care. The patient given a cocktail. REVIEW OF SYSTEMS: This is limited secondary to the patient's current mental state. We will try to obtain more detailed review of system at a later date by talking to family members [phone], . We will also try to get information from nursing staff at [facility], . PHYSICAL EXAMINATION: VITAL SIGNS: Blood pressure 118/73, respirations 19, pulse 75, temperature 97.9. GENERAL: Elderly male, appears somewhat obese. NECK: Supple. No mass. LUNGS: Equal breath sounds. Few rhonchi. HEART: Regular rate and rhythm. Systolic ejection murmur. ABDOMEN: Soft, globular. EXTREMITIES: Positive excoriations. NEUROLOGIC: Limited. LABORATORY DATA: WBC 4.5, hemoglobin 13, platelets 168. Sodium 136, potassium 3.3, BUN 12, creatinine 0.7, blood sugar 148. Albumin 4.0. ASSESSMENT AND PLAN: Leukopenia, osteoarthritis, hyperglycemia, obesity, hypertension, asthma, COPD, history of stroke, hydrocephalus, status post PARAMEDIC SUPERVISOR shunt, Parkinson, hypercholesterolemia, seizure, hypertension, and constipation. We will check the patient's hemoglobin A1c. Continue the patient on Sinemet. We will monitor the patient's white count closely. We will titrate the patient's antihypertensive medication. Continue on seizure medication, continue on Keppra. We will follow consult and recommendations. [facility]# [id number]
[2019-04-10] MEDS: Fenofibrate, Micronized 134 mg Cap PO SCH (21:22)
[2019-04-10] MEDS: Lactulose 10 Gm/15 mL 30mL UDC PO SCH (21:22)
[2019-04-10] MEDS: Benztropine 1 MG TAB PO SCH (21:22)
[2019-04-11] MEDS: Pantoprazole 40 mg EC Tab PO SCH ×2 (06:45→16:11)
[2019-04-11] MEDS: Lactulose 10 Gm/15 mL 30mL UDC PO SCH ×4 (08:28→20:40)
[2019-04-11] MEDS: Multivitamin w/ Minerals Tab PO SCH (08:29)
[2019-04-11] MEDS: Benztropine 1 MG TAB PO SCH ×2 (08:30→16:12)
--- NOTE | 2019-04-11 12:35 | Internal Medicine Prog Note ---
Internal Medicine Subjective - Subjective Patient seen and examined:: with staff, chart reviewed Patient is:: awake, verbal, interactive, confused Per staff patient has:: no adverse event, no episodes of fall, poor appetite, tolerating meds Internal Medicine Objective - Results Result Diagrams: 04/10/19 13:19 04/10/19 13:19 Recent Labs: Laboratory Last Values WBC 4.5 Th/cmm (4.8-10.8) L 04/10/19 13:19 RBC 5.30 Mil/cmm (3.80-5.80) 04/10/19 13:19 Hgb 13.1 gm/dL (12-16) 04/10/19 13:19 Hct 41.7 % (41.0-60) 04/10/19 13:19 MCV 78.7 fl (80-99) L 04/10/19 13:19 MCH 24.7 pg (27.0-31.0) L 04/10/19 13:19 MCHC Differential 31.4 pg (28.0-36.0) 04/10/19 13:19 RDW 18.1 % (11.5-20.0) 04/10/19 13:19 Plt Count 168 Th/cmm (150-400) 04/10/19 13:19 MPV 8.5 fl 04/10/19 13:19 Neutrophils % 60.2 % (40.0-80.0) 04/10/19 13:19 Lymphocytes % 28.2 % (20.0-50.0) 04/10/19 13:19 Monocytes % 6.5 % (2.0-10.0) 04/10/19 13:19 Eosinophils % 4.1 % (0.0-5.0) 04/10/19 13:19 Basophils % 1.0 % (0.0-2.0) 04/10/19 13:19 Sodium 136 mEq/L (136-145) 04/10/19 13:19 Potassium 3.6 mEq/L (3.5-5.1) 04/10/19 13:19 Chloride 102 mEq/L (98-107) 04/10/19 13:19 Carbon Dioxide 26.6 mEq/L (21.0-31.0) 04/10/19 13:19 Anion Gap 11.0 (7.0-16.0) 04/10/19 13:19 BUN 12 mg/dL (7-25) 04/10/19 13:19 Creatinine 0.7 mg/dL (0.7-1.3) 04/10/19 13:19 Est GFR ( Amer) > 60.0 ml/min (>90) 04/10/19 13:19 Est GFR (Non-Af Amer) > 60.0 ml/min 04/10/19 13:19 BUN/Creatinine Ratio 17.1 04/10/19 13:19 Glucose 148 mg/dL (70-105) H 04/10/19 13:19 Calcium 9.4 mg/dL (8.6-10.3) 04/10/19 13:19 Total Bilirubin 0.5 mg/dL (0.3-1.0) 04/10/19 13:19 AST 24 U/L (13-39) 04/10/19 13:19 ALT 17 U/L (7-52) 04/10/19 13:19 Alkaline Phosphatase 53 U/L (34-104) 04/10/19 13:19 Total Protein 7.2 gm/dL (6.0-8.3) 04/10/19 13:19 Albumin 4.0 gm/dL (4.2-5.5) L 04/10/19 13:19 Globulin 3.2 gm/dL 04/10/19 13:19 Albumin/Globulin Ratio 1.3 (1.0-1.8) 04/10/19 13:19 Triglycerides 181 mg/dL (<150) H 04/10/19 13:19 Cholesterol 161 mg/dL (<200) 04/10/19 13:19 LDL Cholesterol Direct 102 mg/dL (75-193) 04/10/19 13:19 HDL Cholesterol 36 mg/dL (23-92) 04/10/19 13:19 TSH 0.77 uIU/ml (0.34-5.60) 04/10/19 13:19 Urine Source RANDOM 04/10/19 14:35 Urine Color YELLOW 04/10/19 14:35 Urine Clarity CLEAR (CLEAR) 04/10/19 14:35 Urine pH 6.0 (4.6 - 8.0) 04/10/19 14:35 Ur Specific [place] 1.015 (1.005-1.030) 04/10/19 14:35 Urine Protein NEGATIVE mg/dL (NEGATIVE) 04/10/19 14:35 Urine Glucose (UA) NEGATIVE mg/dL (NEGATIVE) 04/10/19 14:35 Urine Ketones NEGATIVE mg/dL (NEGATIVE) 04/10/19 14:35 Urine Blood NEGATIVE (NEGATIVE) 04/10/19 14:35 Urine Nitrate NEGATIVE (NEGATIVE) 04/10/19 14:35 Urine Bilirubin NEGATIVE (NEGATIVE) 04/10/19 14:35 Urine Urobilinogen 1.0 E.U./dL (0.2 - 1.0) 04/10/19 14:35 Ur Leukocyte Esterase NEGATIVE (NEGATIVE) 04/10/19 14:35 Urine RBC 0-2 /hpf (0-5) H 04/10/19 14:35 Urine WBC 0-2 /hpf (0-5) 04/10/19 14:35 Ur Epithelial Cells NONE SEEN /lpf (FEW) 04/10/19 14:35 Urine Bacteria FEW /hpf (NONE SEEN) 04/10/19 14:35 - Physical Exam Vitals and I&O: Vital Signs Temp 98.2 F 04/11/19 06:11 Pulse 81 04/11/19 06:11 Resp 18 04/11/19 06:11 BP 130/83 04/11/19 06:11 Pulse Ox 98 04/11/19 06:11 Intake & Output 04/10/19 04/11/19 04/11/19 18:59 06:59 18:59 Intake Total 240 120 Output Total 600 Balance -360 120 Weight (lbs) 106.141 kg Intake: Oral 240 120 Output: Urine 600 Other: # Voids 1 3 Weight Source Estimated Active Medications: Current Medications Ascorbic Acid (Vitamin C) 500 mg PO BID [facility] Stop: 06/09/19 20:59 Last Admin: 04/11/19 08:29 Dose: 500 mg Benztropine Mesylate (Cogentin) 1 mg PO BID [facility] Stop: 06/09/19 20:59 Last Admin: 04/11/19 08:30 Dose: 1 mg Carbidopa/Levodopa (Sinemet 25mg-100 Mg) 1 tab PO TID [facility] Stop: 06/09/19 20:59 Last Admin: 04/11/19 08:29 Dose: 1 tab Docusate Sodium (Colace) 100 mg PO DAILY [facility] Stop: 06/10/19 08:59 Last Admin: 04/11/19 08:29 Dose: 100 mg Fenofibrate (Tricor) 134 mg PO HS [facility] Stop: 06/09/19 20:59 Last Admin: 04/10/19 21:22 Dose: 134 mg Lactulose (Cephulac) 20 gm PO QID [facility] Stop: 06/09/19 20:59 Last Admin: 04/11/19 08:28 Dose: 20 gm Levetiracetam (Keppra) 500 mg PO BID [facility] Stop: 06/09/19 20:59 Last Admin: 04/11/19 08:29 Dose: 500 mg Levocarnitine (Carnitor) 990 mg PO TID [facility] Stop: 06/10/19 08:59 Last Admin: 04/11/19 08:31 Dose: Not Given Lorazepam (Ativan) 0.5 mg PO Q4H PRN; Protocol PRN Reason: Anxiety Stop: 06/09/19 20:08 Oxybutynin Chloride (Ditropan) 5 mg PO HS [facility] Stop: 06/09/19 20:59 Last Admin: 04/10/19 21:22 Dose: 5 mg Pantoprazole Sodium (Protonix) 40 mg PO BIDAC [facility] Stop: 06/10/19 07:29 Last Admin: 04/11/19 06:45 Dose: 40 mg Quetiapine Fumarate (Seroquel) 75 mg PO BID [facility]; Protocol Stop: 06/09/19 21:29 Last Admin: 04/11/19 08:29 Dose: 75 mg Sodium Chloride (Nacl Tab) 1 gm PO BID [facility] Stop: 06/09/19 20:59 Last Admin: 04/11/19 08:29 Dose: 1 gm Zolpidem Tartrate (Ambien) 5 mg PO HS PRN PRN Reason: Insomnia General: demented HEENT: NC/AT, PERRLA Neck: Supple, No LAD Lungs: CTAB Cardiovascular: RRR, Normal S1, Normal S2 Abdomen: soft, non-tender, globular, positive bowel sound Extremities: excoriation, contracture, deformity - Procedures Procedures: Procedures Procedure Code Date COLONOSCOPY W/LESION REMOVAL 80036 09/17/17 EXCISION OF ASCENDING COLON, ENDO, DIAGN [id number] 09/17/17 EXCISION OF RECTUM, ENDO [id number] 09/17/17 EXCISION OF TRANSVERSE COLON, ENDO [id number] 09/17/17 EXCISION OF TRANSVERSE COLON, ENDO, DIAGN [id number] 09/17/17 GROUP PSYCHOTHERAPY 40288 12/06/15 GROUP PSYCHOTHERAPY [id number] 12/06/15 OTHER GROUP THERAPY 94.44 06/02/14 RECREATIONAL THERAPY 93.81 07/28/11 Internal Medicine Assmt/Plan - Assessment Assessment: ASSESSMENT AND PLAN: Leukopenia, osteoarthritis, hyperglycemia, obesity, hypertension, asthma, COPD, history of stroke, hydrocephalus, 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 - Plan Plan: PLAN: We will check the patient's hemoglobin A1c. Continue the patient on Sinemet. We will monitor the patient's white count closely. We will titrate the patient's antihypertensive medication. Continue on seizure medication, continue on Keppra. We will follow consult and recommendations.
[2019-04-11] MEDS: Fenofibrate, Micronized 134 mg Cap PO SCH (20:40)
[2019-04-12] MEDS: Pantoprazole 40 mg EC Tab PO SCH ×2 (06:43→16:57)
[2019-04-12] MEDS: Lactulose 10 Gm/15 mL 30mL UDC PO SCH ×4 (08:56→21:16)
[2019-04-12] MEDS: Multivitamin w/ Minerals Tab PO SCH (08:56)
[2019-04-12] MEDS: Benztropine 1 MG TAB PO SCH ×2 (08:57→16:58)
--- NOTE | 2019-04-12 13:43 | Internal Medicine Prog Note ---
Internal Medicine Subjective - Subjective Service Date: 04/12/19 Patient is:: awake, verbal, interactive, confused Per staff patient has:: no adverse event, no episodes of fall, poor appetite, tolerating meds Internal Medicine Objective - Results Result Diagrams: 04/10/19 13:19 04/10/19 13:19 Recent Labs: Laboratory Last Values WBC 4.5 Th/cmm (4.8-10.8) L 04/10/19 13:19 RBC 5.30 Mil/cmm (3.80-5.80) 04/10/19 13:19 Hgb 13.1 gm/dL (12-16) 04/10/19 13:19 Hct 41.7 % (41.0-60) 04/10/19 13:19 MCV 78.7 fl (80-99) L 04/10/19 13:19 MCH 24.7 pg (27.0-31.0) L 04/10/19 13:19 MCHC Differential 31.4 pg (28.0-36.0) 04/10/19 13:19 RDW 18.1 % (11.5-20.0) 04/10/19 13:19 Plt Count 168 Th/cmm (150-400) 04/10/19 13:19 MPV 8.5 fl 04/10/19 13:19 Neutrophils % 60.2 % (40.0-80.0) 04/10/19 13:19 Lymphocytes % 28.2 % (20.0-50.0) 04/10/19 13:19 Monocytes % 6.5 % (2.0-10.0) 04/10/19 13:19 Eosinophils % 4.1 % (0.0-5.0) 04/10/19 13:19 Basophils % 1.0 % (0.0-2.0) 04/10/19 13:19 Sodium 136 mEq/L (136-145) 04/10/19 13:19 Potassium 3.6 mEq/L (3.5-5.1) 04/10/19 13:19 Chloride 102 mEq/L (98-107) 04/10/19 13:19 Carbon Dioxide 26.6 mEq/L (21.0-31.0) 04/10/19 13:19 Anion Gap 11.0 (7.0-16.0) 04/10/19 13:19 BUN 12 mg/dL (7-25) 04/10/19 13:19 Creatinine 0.7 mg/dL (0.7-1.3) 04/10/19 13:19 Est GFR ( Amer) > 60.0 ml/min (>90) 04/10/19 13:19 Est GFR (Non-Af Amer) > 60.0 ml/min 04/10/19 13:19 BUN/Creatinine Ratio 17.1 04/10/19 13:19 Glucose 148 mg/dL (70-105) H 04/10/19 13:19 Calcium 9.4 mg/dL (8.6-10.3) 04/10/19 13:19 Total Bilirubin 0.5 mg/dL (0.3-1.0) 04/10/19 13:19 AST 24 U/L (13-39) 04/10/19 13:19 ALT 17 U/L (7-52) 04/10/19 13:19 Alkaline Phosphatase 53 U/L (34-104) 04/10/19 13:19 Total Protein 7.2 gm/dL (6.0-8.3) 04/10/19 13:19 Albumin 4.0 gm/dL (4.2-5.5) L 04/10/19 13:19 Globulin 3.2 gm/dL 04/10/19 13:19 Albumin/Globulin Ratio 1.3 (1.0-1.8) 04/10/19 13:19 Triglycerides 181 mg/dL (<150) H 04/10/19 13:19 Cholesterol 161 mg/dL (<200) 04/10/19 13:19 LDL Cholesterol Direct 102 mg/dL (75-193) 04/10/19 13:19 HDL Cholesterol 36 mg/dL (23-92) 04/10/19 13:19 TSH 0.77 uIU/ml (0.34-5.60) 04/10/19 13:19 Urine Source RANDOM 04/10/19 14:35 Urine Color YELLOW 04/10/19 14:35 Urine Clarity CLEAR (CLEAR) 04/10/19 14:35 Urine pH 6.0 (4.6 - 8.0) 04/10/19 14:35 Ur Specific [place] 1.015 (1.005-1.030) 04/10/19 14:35 Urine Protein NEGATIVE mg/dL (NEGATIVE) 04/10/19 14:35 Urine Glucose (UA) NEGATIVE mg/dL (NEGATIVE) 04/10/19 14:35 Urine Ketones NEGATIVE mg/dL (NEGATIVE) 04/10/19 14:35 Urine Blood NEGATIVE (NEGATIVE) 04/10/19 14:35 Urine Nitrate NEGATIVE (NEGATIVE) 04/10/19 14:35 Urine Bilirubin NEGATIVE (NEGATIVE) 04/10/19 14:35 Urine Urobilinogen 1.0 E.U./dL (0.2 - 1.0) 04/10/19 14:35 Ur Leukocyte Esterase NEGATIVE (NEGATIVE) 04/10/19 14:35 Urine RBC 0-2 /hpf (0-5) H 04/10/19 14:35 Urine WBC 0-2 /hpf (0-5) 04/10/19 14:35 Ur Epithelial Cells NONE SEEN /lpf (FEW) 04/10/19 14:35 Urine Bacteria FEW /hpf (NONE SEEN) 04/10/19 14:35 RPR NONREACTIVE (NONREACTIVE) 04/10/19 13:19 - Physical Exam Vitals and I&O: Vital Signs Temp 98.2 F 04/11/19 14:00 Pulse 90 04/11/19 14:00 Resp 20 04/11/19 14:00 BP 156/65 04/11/19 14:00 Pulse Ox 98 04/11/19 14:00 Intake & Output 04/11/19 04/12/19 04/12/19 18:59 06:59 18:59 Intake Total 1000 Balance 1000 Intake: Oral 1000 Other: # Voids 4 # Bowel Movements 1 Active Medications: Current Medications Ascorbic Acid (Vitamin C) 500 mg PO BID [facility] Stop: 06/09/19 20:59 Last Admin: 04/12/19 08:56 Dose: 500 mg Benztropine Mesylate (Cogentin) 1 mg PO BID [facility] Stop: 06/09/19 20:59 Last Admin: 04/12/19 08:57 Dose: 1 mg Carbidopa/Levodopa (Sinemet 25mg-100 Mg) 1 tab PO TID [facility] Stop: 06/09/19 20:59 Last Admin: 04/12/19 08:56 Dose: 1 tab Docusate Sodium (Colace) 100 mg PO DAILY [facility] Stop: 06/10/19 08:59 Last Admin: 04/12/19 08:56 Dose: 100 mg Fenofibrate (Tricor) 134 mg PO HS [facility] Stop: 06/09/19 20:59 Last Admin: 04/11/19 20:40 Dose: 134 mg Lactulose (Cephulac) 20 gm PO QID [facility] Stop: 06/09/19 20:59 Last Admin: 04/12/19 08:56 Dose: 20 gm Levetiracetam (Keppra) 500 mg PO BID [facility] Stop: 06/09/19 20:59 Last Admin: 04/12/19 08:56 Dose: 500 mg Levocarnitine (Carnitor) 990 mg PO TID [facility] Stop: 06/10/19 08:59 Last Admin: 04/12/19 08:57 Dose: Not Given Lorazepam (Ativan) 0.5 mg PO Q4H PRN; Protocol PRN Reason: Anxiety Stop: 06/09/19 20:08 Oxybutynin Chloride (Ditropan) 5 mg PO HS [facility] Stop: 06/09/19 20:59 Last Admin: 04/11/19 20:40 Dose: 5 mg Pantoprazole Sodium (Protonix) 40 mg PO BIDAC [facility] Stop: 06/10/19 07:29 Last Admin: 04/12/19 06:43 Dose: 40 mg Quetiapine Fumarate (Seroquel) 100 mg PO BID [facility]; Protocol Stop: 06/11/19 16:59 Sodium Chloride (Nacl Tab) 1 gm PO BID [facility] Stop: 06/09/19 20:59 Last Admin: 04/12/19 08:56 Dose: 1 gm Zolpidem Tartrate (Ambien) 5 mg PO HS PRN PRN Reason: Insomnia General: demented HEENT: NC/AT, PERRLA Neck: Supple, No LAD Lungs: CTAB Cardiovascular: RRR, Normal S1, Normal S2 Abdomen: soft, non-tender, globular, positive bowel sound Extremities: excoriation, contracture, deformity - Procedures Procedures: Procedures Procedure Code Date COLONOSCOPY W/LESION REMOVAL 66539 09/17/17 EXCISION OF ASCENDING COLON, ENDO, DIAGN [id number] 09/17/17 EXCISION OF RECTUM, ENDO [id number] 09/17/17 EXCISION OF TRANSVERSE COLON, ENDO [id number] 09/17/17 EXCISION OF TRANSVERSE COLON, ENDO, DIAGN [id number] 09/17/17 GROUP PSYCHOTHERAPY 07078 12/06/15 GROUP PSYCHOTHERAPY [id number] 12/06/15 OTHER GROUP THERAPY 94.44 06/02/14 RECREATIONAL THERAPY 93.81 07/28/11 Internal Medicine Assmt/Plan - Assessment Assessment: ASSESSMENT AND PLAN: Leukopenia, osteoarthritis, hyperglycemia, obesity, hypertension, asthma, COPD, history of stroke, hydrocephalus, status post LICENSED DIRECT ENTRY MIDWIFE shunt, Parkinson, hypercholesterolemia, seizure, hypertension, and constipation. - Plan Plan: PLAN: We will check the patient's hemoglobin A1c. Continue the patient on Sinemet. We will monitor the patient's white count closely. We will titrate the patient's antihypertensive medication. Continue on seizure medication, continue on Keppra. We will follow consult and recommendations.
[2019-04-12] MEDS: Fenofibrate, Micronized 134 mg Cap PO SCH (21:15)
--- NOTE | 2019-04-12 22:48 | Progress Notes ---
DATE: 04/12/2019 SUBJECTIVE: Staff was spoken to. The patient is interviewed. Mood is irritable. Affect is constricted. Continues to be very paranoid. The patient has no insight into his illness. The patient tends to scream and yell. The patient is currently on Seroquel 75 mg b.i.d. Plan to increase the dose to 100 mg twice a day and follow the patient. [facility]# [id number]
[2019-04-13] MEDS: Pantoprazole 40 mg EC Tab PO SCH ×2 (06:38→16:33)
[2019-04-13 08:07] LABS: A1C 6.8 % (4.8-5.6)
[2019-04-13] MEDS: Multivitamin w/ Minerals Tab PO SCH (09:12)
[2019-04-13] MEDS: Benztropine 1 MG TAB PO SCH ×2 (09:13→16:51)
[2019-04-13] MEDS: Lactulose 10 Gm/15 mL 30mL UDC PO SCH ×4 (09:14→21:05)
--- NOTE | 2019-04-13 16:09 | Internal Medicine Prog Note ---
Internal Medicine Subjective - Subjective Service Date: 04/13/19 Patient is:: awake, verbal, interactive, confused Per staff patient has:: no adverse event, no episodes of fall, poor appetite, tolerating meds Internal Medicine Objective - Results Result Diagrams: 04/10/19 13:19 04/10/19 13:19 Recent Labs: Laboratory Last Values WBC 4.5 Th/cmm (4.8-10.8) L 04/10/19 13:19 RBC 5.30 Mil/cmm (3.80-5.80) 04/10/19 13:19 Hgb 13.1 gm/dL (12-16) 04/10/19 13:19 Hct 41.7 % (41.0-60) 04/10/19 13:19 MCV 78.7 fl (80-99) L 04/10/19 13:19 MCH 24.7 pg (27.0-31.0) L 04/10/19 13:19 MCHC Differential 31.4 pg (28.0-36.0) 04/10/19 13:19 RDW 18.1 % (11.5-20.0) 04/10/19 13:19 Plt Count 168 Th/cmm (150-400) 04/10/19 13:19 MPV 8.5 fl 04/10/19 13:19 Neutrophils % 60.2 % (40.0-80.0) 04/10/19 13:19 Lymphocytes % 28.2 % (20.0-50.0) 04/10/19 13:19 Monocytes % 6.5 % (2.0-10.0) 04/10/19 13:19 Eosinophils % 4.1 % (0.0-5.0) 04/10/19 13:19 Basophils % 1.0 % (0.0-2.0) 04/10/19 13:19 Sodium 136 mEq/L (136-145) 04/10/19 13:19 Potassium 3.6 mEq/L (3.5-5.1) 04/10/19 13:19 Chloride 102 mEq/L (98-107) 04/10/19 13:19 Carbon Dioxide 26.6 mEq/L (21.0-31.0) 04/10/19 13:19 Anion Gap 11.0 (7.0-16.0) 04/10/19 13:19 BUN 12 mg/dL (7-25) 04/10/19 13:19 Creatinine 0.7 mg/dL (0.7-1.3) 04/10/19 13:19 Est GFR ( Amer) > 60.0 ml/min (>90) 04/10/19 13:19 Est GFR (Non-Af Amer) > 60.0 ml/min 04/10/19 13:19 BUN/Creatinine Ratio 17.1 04/10/19 13:19 Glucose 148 mg/dL (70-105) H 04/10/19 13:19 Calcium 9.4 mg/dL (8.6-10.3) 04/10/19 13:19 Total Bilirubin 0.5 mg/dL (0.3-1.0) 04/10/19 13:19 AST 24 U/L (13-39) 04/10/19 13:19 ALT 17 U/L (7-52) 04/10/19 13:19 Alkaline Phosphatase 53 U/L (34-104) 04/10/19 13:19 Total Protein 7.2 gm/dL (6.0-8.3) 04/10/19 13:19 Albumin 4.0 gm/dL (4.2-5.5) L 04/10/19 13:19 Globulin 3.2 gm/dL 04/10/19 13:19 Albumin/Globulin Ratio 1.3 (1.0-1.8) 04/10/19 13:19 Triglycerides 181 mg/dL (<150) H 04/10/19 13:19 Cholesterol 161 mg/dL (<200) 04/10/19 13:19 LDL Cholesterol Direct 102 mg/dL (75-193) 04/10/19 13:19 HDL Cholesterol 36 mg/dL (23-92) 04/10/19 13:19 TSH 0.77 uIU/ml (0.34-5.60) 04/10/19 13:19 Urine Source RANDOM 04/10/19 14:35 Urine Color YELLOW 04/10/19 14:35 Urine Clarity CLEAR (CLEAR) 04/10/19 14:35 Urine pH 6.0 (4.6 - 8.0) 04/10/19 14:35 Ur Specific [place] 1.015 (1.005-1.030) 04/10/19 14:35 Urine Protein NEGATIVE mg/dL (NEGATIVE) 04/10/19 14:35 Urine Glucose (UA) NEGATIVE mg/dL (NEGATIVE) 04/10/19 14:35 Urine Ketones NEGATIVE mg/dL (NEGATIVE) 04/10/19 14:35 Urine Blood NEGATIVE (NEGATIVE) 04/10/19 14:35 Urine Nitrate NEGATIVE (NEGATIVE) 04/10/19 14:35 Urine Bilirubin NEGATIVE (NEGATIVE) 04/10/19 14:35 Urine Urobilinogen 1.0 E.U./dL (0.2 - 1.0) 04/10/19 14:35 Ur Leukocyte Esterase NEGATIVE (NEGATIVE) 04/10/19 14:35 Urine RBC 0-2 /hpf (0-5) H 04/10/19 14:35 Urine WBC 0-2 /hpf (0-5) 04/10/19 14:35 Ur Epithelial Cells NONE SEEN /lpf (FEW) 04/10/19 14:35 Urine Bacteria FEW /hpf (NONE SEEN) 04/10/19 14:35 RPR NONREACTIVE (NONREACTIVE) 04/10/19 13:19 - Physical Exam Vitals and I&O: Vital Signs Temp 98.3 F 04/13/19 14:00 Pulse 87 04/13/19 14:00 Resp 20 04/13/19 14:00 BP 125/93 04/13/19 14:00 Pulse Ox 95 04/13/19 14:00 Intake & Output 04/12/19 04/13/19 04/13/19 18:59 06:59 18:59 Intake Total 1000 480 Output Total 1 Balance 1000 479 Intake: Oral 1000 480 Output: Urine/Stool Mix 1 Other: # Voids 4 2 # Bowel Movements 1 1 Active Medications: Current Medications Ascorbic Acid (Vitamin C) 500 mg PO BID [facility] Stop: 06/09/19 20:59 Last Admin: 04/13/19 09:13 Dose: 500 mg Benztropine Mesylate (Cogentin) 1 mg PO BID [facility] Stop: 06/09/19 20:59 Last Admin: 04/13/19 09:13 Dose: 1 mg Carbidopa/Levodopa (Sinemet 25mg-100 Mg) 1 tab PO TID [facility] Stop: 06/09/19 20:59 Last Admin: 04/13/19 13:26 Dose: 1 tab Docusate Sodium (Colace) 100 mg PO DAILY [facility] [place] Stop: 06/10/19 08:59 Last Admin: 04/13/19 09:12 Dose: 100 mg Fenofibrate (Tricor) 134 mg PO HS [facility] Stop: 06/09/19 20:59 Last Admin: 04/12/19 21:15 Dose: 134 mg Lactulose (Cephulac) 20 gm PO QID [facility] Stop: 06/09/19 20:59 Last Admin: 04/13/19 13:26 Dose: 20 gm Levetiracetam (Keppra) 500 mg PO BID [facility] [place] Stop: 06/09/19 20:59 Last Admin: 04/13/19 09:12 Dose: 500 mg Levocarnitine (Carnitor) 990 mg PO TID [facility] [place] Stop: 06/10/19 08:59 Last Admin: 04/13/19 13:26 Dose: 990 mg Lorazepam (Ativan) 0.5 mg PO Q4H PRN; Protocol PRN Reason: Anxiety Stop: 06/09/19 20:08 Oxybutynin Chloride (Ditropan) 5 mg PO HS [facility] [place] Stop: 06/09/19 20:59 Last Admin: 04/12/19 21:16 Dose: 5 mg Pantoprazole Sodium (Protonix) 40 mg PO BIDAC [facility] [place] Stop: 06/10/19 07:29 Last Admin: 04/13/19 06:38 Dose: 40 mg Quetiapine Fumarate (Seroquel) 100 mg PO BID [facility] [place]; Protocol Stop: 06/11/19 16:59 Last Admin: 04/13/19 09:13 Dose: 100 mg Sodium Chloride (Nacl Tab) 1 gm PO BID [facility] [place] Stop: 06/09/19 20:59 Last Admin: 04/13/19 09:12 Dose: 1 gm Zolpidem Tartrate (Ambien) 5 mg PO HS PRN PRN Reason: Insomnia Last Admin: 04/12/19 21:17 Dose: 5 mg General: demented HEENT: NC/AT, PERRLA Neck: Supple, No LAD Lungs: CTAB Cardiovascular: RRR, Normal S1, Normal S2 Abdomen: soft, non-tender, globular, positive bowel sound Extremities: excoriation, contracture, deformity - Procedures Procedures: Procedures Procedure Code Date COLONOSCOPY W/LESION REMOVAL 62896 09/17/17 EXCISION OF ASCENDING COLON, ENDO, DIAGN [id number] 09/17/17 EXCISION OF RECTUM, ENDO [id number] 09/17/17 EXCISION OF TRANSVERSE COLON, ENDO [id number] 09/17/17 EXCISION OF TRANSVERSE COLON, ENDO, DIAGN [id number] 09/17/17 GROUP PSYCHOTHERAPY [id number] 12/06/15 GROUP PSYCHOTHERAPY [id number] 12/06/15 OTHER GROUP THERAPY 94.44 06/02/14 RECREATIONAL THERAPY 93.81 07/28/11 Internal Medicine Assmt/Plan - Assessment Assessment: ASSESSMENT AND PLAN: Leukopenia, osteoarthritis, hyperglycemia, obesity, hypertension, asthma, COPD, history of stroke, hydrocephalus, status post [employer] shunt, Parkinson, hypercholesterolemia, seizure, hypertension, and constipation. - Plan Plan: PLAN: We will check the patient's hemoglobin A1c. Continue the patient on Sinemet. We will monitor the patient's white count closely. We will titrate the patient's antihypertensive medication. Continue on seizure medication, continue on Keppra. We will follow consult and recommendations.
[2019-04-13] MEDS: Fenofibrate, Micronized 134 mg Cap PO SCH (21:05)
--- NOTE | 2019-04-13 22:50 | Progress Notes ---
DATE: 04/13/2019 SUBJECTIVE: Staff was spoken to. The patient is interviewed. The patient continues to be irritable and angry. Mood swings are still a problem. The patient tends to be screaming and yelling and demanding. The patient is currently on 100 mg twice a day of the Seroquel and has been able to tolerate the medication. The patient has tremor in the upper extremity. ASSESSMENT: The patient is still impulsive and psychotic. PLAN: To continue the patient with the supportive therapy and followup. JOB# [id number]
--- NOTE | 2019-04-13 22:56 | Psychiatric Evaluation ---
DATE OF SERVICE: 04/10/2019 PSYCHIATRIC EVALUATION IDENTIFYING DATA: The patient is a 68-year-old male, resident of [facility]. Information obtained by directly interviewing the patient as well as reviewing the admission papers and they are reliable. JUSTIFICATION FOR HOSPITALIZATION: The patient is admitted on a voluntary basis in view of his acute agitation and striking out at the staff members and cursing them. CHIEF COMPLAINT: "I don't know, they sent me in here." HISTORY OF PRESENT ILLNESS: This is one of multiple psychiatric hospitalizations with multiple medical problems including hypertension, asthma, COPD, CVA, Parkinson's disease, hydrocephalus, status post shunt and the patient has been reported to have been testing the limits and has been having difficult time to be directed. The patient has been hospitalized under my care in February of this year and has been followed. On the discharge, the patient is referred to the [facility] for further followup. Sleep and appetite prior to the hospitalization are reported to be very poor. PAST PSYCHIATRIC HISTORY: Please refer to the above. The patient has been diagnosed to have schizoaffective disorder and has been on Seroquel at this time. MEDICAL HISTORY: Physical examination is requested to be done by Dr. Harden. SUBSTANCE ABUSE HISTORY: None. PHYSICAL OR SEXUAL ABUSE HISTORY: None. LEGAL PROBLEMS: None at this time. MENTAL STATUS EXAMINATION: The patient is a 68-year-old, looking his stated age, very irritable, angry and talking loudly. The patient's insight and judgment are noted to be very much impaired. Impulse control is noted to be limited and the patient is screaming and stating that he should not be in here, he should be back at the facility and the patient has no insight into his illness. The patient has been very impulsive and has a history of being sexually inappropriate. The patient is alert and oriented x 3 at this time. Attention span and concentration are noted to be poor. The patient's behavior is likely danger to others. The patient is paranoid, but denies any command hallucinations. DIAGNOSTIC IMPRESSION: AXIS I: Schizoaffective disorder, psychotic at this time. AXIS II: None. AXIS III: As per Dr. Harden. TREATMENT PLAN: The patient is going to be restarted on the Seroquel. The patient is going to be closely monitored. The blood work that has been ordered is going to be reviewed. ESTIMATED LENGTH OF STAY: 3-5 days. DISCHARGE CRITERIA: When he no longer a threat to self or others. The patient is going to be continued on the Seroquel, which he is currently at 75 mg twice a day depending on the patient's behavior, possibly low dose of the Depakote is going to be added. [facility]# [id number]
[2019-04-14] MEDS: Pantoprazole 40 mg EC Tab PO SCH ×2 (06:41→16:58)
[2019-04-14] MEDS: Lactulose 10 Gm/15 mL 30mL UDC PO SCH ×4 (09:06→21:36)
[2019-04-14] MEDS: Benztropine 1 MG TAB PO SCH ×2 (09:06→16:59)
[2019-04-14] MEDS: Multivitamin w/ Minerals Tab PO SCH (09:07)
--- NOTE | 2019-04-14 12:17 | Internal Medicine Prog Note ---
Internal Medicine Subjective - Subjective Patient seen and examined:: with staff, chart reviewed Patient is:: awake, verbal, interactive, confused Per staff patient has:: no adverse event, no episodes of fall, poor appetite, tolerating meds Internal Medicine Objective - Results Result Diagrams: 04/10/19 13:19 04/10/19 13:19 Recent Labs: Laboratory Last Values WBC 4.5 Th/cmm (4.8-10.8) L 04/10/19 13:19 RBC 5.30 Mil/cmm (3.80-5.80) 04/10/19 13:19 Hgb 13.1 gm/dL (12-16) 04/10/19 13:19 Hct 41.7 % (41.0-60) 04/10/19 13:19 MCV 78.7 fl (80-99) L 04/10/19 13:19 MCH 24.7 pg (27.0-31.0) L 04/10/19 13:19 MCHC Differential 31.4 pg (28.0-36.0) 04/10/19 13:19 RDW 18.1 % (11.5-20.0) 04/10/19 13:19 Plt Count 168 Th/cmm (150-400) 04/10/19 13:19 MPV 8.5 fl 04/10/19 13:19 Neutrophils % 60.2 % (40.0-80.0) 04/10/19 13:19 Lymphocytes % 28.2 % (20.0-50.0) 04/10/19 13:19 Monocytes % 6.5 % (2.0-10.0) 04/10/19 13:19 Eosinophils % 4.1 % (0.0-5.0) 04/10/19 13:19 Basophils % 1.0 % (0.0-2.0) 04/10/19 13:19 Sodium 136 mEq/L (136-145) 04/10/19 13:19 Potassium 3.6 mEq/L (3.5-5.1) 04/10/19 13:19 Chloride 102 mEq/L (98-107) 04/10/19 13:19 Carbon Dioxide 26.6 mEq/L (21.0-31.0) 04/10/19 13:19 Anion Gap 11.0 (7.0-16.0) 04/10/19 13:19 BUN 12 mg/dL (7-25) 04/10/19 13:19 Creatinine 0.7 mg/dL (0.7-1.3) 04/10/19 13:19 Est GFR ( Amer) > 60.0 ml/min (>90) 04/10/19 13:19 Est GFR (Non-Af Amer) > 60.0 ml/min 04/10/19 13:19 BUN/Creatinine Ratio 17.1 04/10/19 13:19 Glucose 148 mg/dL (70-105) H 04/10/19 13:19 Calcium 9.4 mg/dL (8.6-10.3) 04/10/19 13:19 Total Bilirubin 0.5 mg/dL (0.3-1.0) 04/10/19 13:19 AST 24 U/L (13-39) 04/10/19 13:19 ALT 17 U/L (7-52) 04/10/19 13:19 Alkaline Phosphatase 53 U/L (34-104) 04/10/19 13:19 Total Protein 7.2 gm/dL (6.0-8.3) 04/10/19 13:19 Albumin 4.0 gm/dL (4.2-5.5) L 04/10/19 13:19 Globulin 3.2 gm/dL 04/10/19 13:19 Albumin/Globulin Ratio 1.3 (1.0-1.8) 04/10/19 13:19 Triglycerides 181 mg/dL (<150) H 04/10/19 13:19 Cholesterol 161 mg/dL (<200) 04/10/19 13:19 LDL Cholesterol Direct 102 mg/dL (75-193) 04/10/19 13:19 HDL Cholesterol 36 mg/dL (23-92) 04/10/19 13:19 TSH 0.77 uIU/ml (0.34-5.60) 04/10/19 13:19 Urine Source RANDOM 04/10/19 14:35 Urine Color YELLOW 04/10/19 14:35 Urine Clarity CLEAR (CLEAR) 04/10/19 14:35 Urine pH 6.0 (4.6 - 8.0) 04/10/19 14:35 Ur Specific [place] 1.015 (1.005-1.030) 04/10/19 14:35 Urine Protein NEGATIVE mg/dL (NEGATIVE) 04/10/19 14:35 Urine Glucose (UA) NEGATIVE mg/dL (NEGATIVE) 04/10/19 14:35 Urine Ketones NEGATIVE mg/dL (NEGATIVE) 04/10/19 14:35 Urine Blood NEGATIVE (NEGATIVE) 04/10/19 14:35 Urine Nitrate NEGATIVE (NEGATIVE) 04/10/19 14:35 Urine Bilirubin NEGATIVE (NEGATIVE) 04/10/19 14:35 Urine Urobilinogen 1.0 E.U./dL (0.2 - 1.0) 04/10/19 14:35 Ur Leukocyte Esterase NEGATIVE (NEGATIVE) 04/10/19 14:35 Urine RBC 0-2 /hpf (0-5) H 04/10/19 14:35 Urine WBC 0-2 /hpf (0-5) 04/10/19 14:35 Ur Epithelial Cells NONE SEEN /lpf (FEW) 04/10/19 14:35 Urine Bacteria FEW /hpf (NONE SEEN) 04/10/19 14:35 RPR NONREACTIVE (NONREACTIVE) 04/10/19 13:19 - Physical Exam Vitals and I&O: Vital Signs Temp 97.0 F 04/14/19 06:20 Pulse 66 04/14/19 06:20 Resp 18 04/14/19 06:20 BP 136/85 04/14/19 06:20 Pulse Ox 93 04/14/19 06:20 Intake & Output 04/13/19 04/14/19 04/14/19 18:59 06:59 18:59 Intake Total 1000 240 Balance 1000 240 Intake: Oral 1000 240 Other: # Voids 4 2 # Bowel Movements 1 Active Medications: Current Medications Ascorbic Acid (Vitamin C) 500 mg PO BID [facility] Stop: 06/09/19 20:59 Last Admin: 04/14/19 09:06 Dose: 500 mg Benztropine Mesylate (Cogentin) 1 mg PO BID [facility] Stop: 06/09/19 20:59 Last Admin: 04/14/19 09:06 Dose: 1 mg Carbidopa/Levodopa (Sinemet 25mg-100 Mg) 1 tab PO TID [facility] Stop: 06/09/19 20:59 Last Admin: 04/14/19 09:06 Dose: 1 tab Docusate Sodium (Colace) 100 mg PO DAILY [facility] Stop: 06/10/19 08:59 Last Admin: 04/14/19 09:07 Dose: 100 mg Fenofibrate (Tricor) 134 mg PO HS [facility] Stop: 06/09/19 20:59 Last Admin: 04/13/19 21:05 Dose: 134 mg Lactulose (Cephulac) 20 gm PO QID [facility] Stop: 06/09/19 20:59 Last Admin: 04/14/19 09:06 Dose: 20 gm Levetiracetam (Keppra) 500 mg PO BID [facility] Stop: 06/09/19 20:59 Last Admin: 04/14/19 09:06 Dose: 500 mg Levocarnitine (Carnitor) 990 mg PO TID [facility] Stop: 06/10/19 08:59 Last Admin: 04/14/19 09:08 Dose: 990 mg Lorazepam (Ativan) 0.5 mg PO Q4H PRN; Protocol PRN Reason: Anxiety Stop: 06/09/19 20:08 Last Admin: 04/14/19 00:05 Dose: 0.5 mg Oxybutynin Chloride (Ditropan) 5 mg PO HS [facility] Stop: 06/09/19 20:59 Last Admin: 04/13/19 21:06 Dose: 5 mg Pantoprazole Sodium (Protonix) 40 mg PO BIDAC [facility] Stop: 06/10/19 07:29 Last Admin: 04/14/19 06:41 Dose: 40 mg Quetiapine Fumarate (Seroquel) 100 mg PO BID [facility]; Protocol Stop: 06/11/19 16:59 Last Admin: 04/14/19 09:07 Dose: 100 mg Sodium Chloride (Nacl Tab) 1 gm PO BID [facility] Stop: 06/09/19 20:59 Last Admin: 04/14/19 09:06 Dose: 1 gm General: demented HEENT: NC/AT, PERRLA Neck: Supple, No LAD Lungs: CTAB Cardiovascular: RRR, Normal S1, Normal S2 Abdomen: soft, non-tender, globular, positive bowel sound Extremities: excoriation, contracture, deformity - Procedures Procedures: Procedures Procedure Code Date COLONOSCOPY W/LESION REMOVAL 88977 09/17/17 EXCISION OF ASCENDING COLON, ENDO, DIAGN [id number] 09/17/17 EXCISION OF RECTUM, ENDO [id number] 09/17/17 EXCISION OF TRANSVERSE COLON, ENDO [id number] 09/17/17 EXCISION OF TRANSVERSE COLON, ENDO, DIAGN [id number] 09/17/17 GROUP PSYCHOTHERAPY 99693 12/06/15 GROUP PSYCHOTHERAPY [id number] 12/06/15 OTHER GROUP THERAPY 94.44 06/02/14 RECREATIONAL THERAPY 93.81 07/28/11 Internal Medicine Assmt/Plan - Assessment Assessment: ASSESSMENT AND PLAN: Leukopenia, osteoarthritis, hyperglycemia, obesity, hypertension, asthma, COPD, history of stroke, hydrocephalus, 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 - Plan Plan: PLAN: We will check the patient's hemoglobin A1c. Continue the patient on Sinemet. We will monitor the patient's white count closely. We will titrate the patient's antihypertensive medication. Continue on seizure medication, continue on Keppra. We will follow consult and recommendations.
--- NOTE | 2019-04-14 14:42 | Consultation ---
DATE OF CONSULTATION: 04/12/2019 REQUESTING PHYSICIAN: Gayle Salas M.D. TYPE OF CONSULTATION: Psychology. HISTORY OF PRESENT ILLNESS: The patient is a 68-year-old male. 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 The patient is a resident of [facility]. The following is by record review and by the patient's report. The patient is being admitted due to acute agitation and striking out behaviors towards the staff. Upon interview, the patient states that he does not know why he is being hospitalized. The patient denied any aggressive behavior. The staff at the patient's facility reports the patient had been striking out at them as well as cursing at them. The patient did not answer questions about the incidents that initiated the referral for inpatient hospitalization. PAST MEDICAL HISTORY: Please see history and physical by Dr. Harden. PAST PSYCHIATRIC HISTORY: The patient is under the care of Dr. Mabry at the patient's facility. The patient has a long history of schizoaffective disorder and has multiple previous hospitalizations. SUBSTANCE ABUSE HISTORY: The patient denied any history of alcohol, tobacco or illicit drug use. PSYCHOSOCIAL HISTORY: The patient did not answer questions about occupational history or educational history. The patient states that he is legally and that his brother, Ryan and his sister, Safia are involved in his care. The patient states that he is a [employer]. The patient denied any history of physical or sexual abuse or any current legal problems. The patient expects to return to his placement. MENTAL STATUS EXAMINATION: The patient appears to be his stated age. The patient's attitude is suspicious and guarded. Eye contact is poor. Mood is irritable and angry. Speech is loud with episodes of yelling. Affect is constricted. Thought process shows to be confused and includes perseveration on being discharged immediately. The patient has very poor insight into the reasons for his admission and his illness. The patient denied any auditory or visual hallucinations. He denied any suicidal or homicidal ideation, plan or intention. There is evidence of paranoid ideation present. The patient's behavior has been difficult to redirect and is likely a danger to others. The patient's behavior in the past has also included sexually inappropriate behavior. Impulse control is inadequate. Concentration is poor. Sensorium is alert and oriented x 3. The patient did not participate in the memory assessment. The patient did not participate in the interpretation of proverbs. Insight is impaired. Judgment is impaired. DIAGNOSTIC IMPRESSION: AXIS I: Schizoaffective disorder in psychotic phase. AXIS II: Deferred. AXIS III: Per Dr. Harden. TREATMENT PLAN: The patient has been seen by Dr. Salas for psychiatric evaluation and for the management of the patient's psychotropic medications. The patient is being restarted on Seroquel according to the attending psychiatrist. We will provide de-escalation and limit setting. We will provide stress management to help the patient increase his frustration tolerance. We will provide motivational enhancement for the patient to become compliant and stay compliant with all aspects of his care and treatment. We will encourage the patient to demonstrate emotional and self-regulation and to verbalize his concerns versus acting out. We will provide daily opportunities for the patient to verbally contract for safety, i.e., no harm to others and no self-harm. We will provide coping strategies for phase of life issues as well as for chronic severe mental illness. DISCHARGE CRITERIA: Includes the patient to no longer be a threat to self or others. We will follow up in 2 days to continue the present treatment. Thank you, Dr. Salas, for this consult and the opportunity to participate in this patient's care. [facility]# [id number] [place]
[2019-04-14] MEDS: Fenofibrate, Micronized 134 mg Cap PO SCH (21:36)
--- NOTE | 2019-04-15 03:24 | Progress Notes ---
DATE: 04/14/2019 PSYCHIATRIC PROGRESS NOTE SUBJECTIVE: Staff was spoken to. The patient is interviewed. Mood is noted to be irritable. Affect is constricted. Insight and judgment are noted to be still impaired. Impulse control is noted to be limited. Coping skills are also noted to be limited. The patient has paranoia, but denies any command hallucinations. The patient has mild tremor in the upper extremities. The patient is currently on Seroquel 100 mg twice a day and impulsivity is a major concern and sexualized comments are a concern. PLAN: To continue the patient with the current medications. I encouraged the patient to verbalize the concerns rather than to act out. JOB# [id number]
[2019-04-15] MEDS: Pantoprazole 40 mg EC Tab PO SCH ×2 (06:35→16:30)
[2019-04-15] MEDS: Multivitamin w/ Minerals Tab PO SCH (08:38)
[2019-04-15] MEDS: Benztropine 1 MG TAB PO SCH ×2 (08:39→18:00)
[2019-04-15] MEDS: Lactulose 10 Gm/15 mL 30mL UDC PO SCH ×4 (08:39→20:53)
--- NOTE | 2019-04-15 13:14 | Internal Medicine Prog Note ---
Internal Medicine Subjective - Subjective Patient seen and examined:: with staff, chart reviewed Patient is:: awake, verbal, interactive, confused Per staff patient has:: no adverse event, no episodes of fall, poor appetite, tolerating meds Internal Medicine Objective - Results Result Diagrams: 04/10/19 13:19 04/10/19 13:19 Recent Labs: Laboratory Last Values WBC 4.5 Th/cmm (4.8-10.8) L 04/10/19 13:19 RBC 5.30 Mil/cmm (3.80-5.80) 04/10/19 13:19 Hgb 13.1 gm/dL (12-16) 04/10/19 13:19 Hct 41.7 % (41.0-60) 04/10/19 13:19 MCV 78.7 fl (80-99) L 04/10/19 13:19 MCH 24.7 pg (27.0-31.0) L 04/10/19 13:19 MCHC Differential 31.4 pg (28.0-36.0) 04/10/19 13:19 RDW 18.1 % (11.5-20.0) 04/10/19 13:19 Plt Count 168 Th/cmm (150-400) 04/10/19 13:19 MPV 8.5 fl 04/10/19 13:19 Neutrophils % 60.2 % (40.0-80.0) 04/10/19 13:19 Lymphocytes % 28.2 % (20.0-50.0) 04/10/19 13:19 Monocytes % 6.5 % (2.0-10.0) 04/10/19 13:19 Eosinophils % 4.1 % (0.0-5.0) 04/10/19 13:19 Basophils % 1.0 % (0.0-2.0) 04/10/19 13:19 Sodium 136 mEq/L (136-145) 04/10/19 13:19 Potassium 3.6 mEq/L (3.5-5.1) 04/10/19 13:19 Chloride 102 mEq/L (98-107) 04/10/19 13:19 Carbon Dioxide 26.6 mEq/L (21.0-31.0) 04/10/19 13:19 Anion Gap 11.0 (7.0-16.0) 04/10/19 13:19 BUN 12 mg/dL (7-25) 04/10/19 13:19 Creatinine 0.7 mg/dL (0.7-1.3) 04/10/19 13:19 Est GFR ( Amer) > 60.0 ml/min (>90) 04/10/19 13:19 Est GFR (Non-Af Amer) > 60.0 ml/min 04/10/19 13:19 BUN/Creatinine Ratio 17.1 04/10/19 13:19 Glucose 148 mg/dL (70-105) H 04/10/19 13:19 Calcium 9.4 mg/dL (8.6-10.3) 04/10/19 13:19 Total Bilirubin 0.5 mg/dL (0.3-1.0) 04/10/19 13:19 AST 24 U/L (13-39) 04/10/19 13:19 ALT 17 U/L (7-52) 04/10/19 13:19 Alkaline Phosphatase 53 U/L (34-104) 04/10/19 13:19 Total Protein 7.2 gm/dL (6.0-8.3) 04/10/19 13:19 Albumin 4.0 gm/dL (4.2-5.5) L 04/10/19 13:19 Globulin 3.2 gm/dL 04/10/19 13:19 Albumin/Globulin Ratio 1.3 (1.0-1.8) 04/10/19 13:19 Triglycerides 181 mg/dL (<150) H 04/10/19 13:19 Cholesterol 161 mg/dL (<200) 04/10/19 13:19 LDL Cholesterol Direct 102 mg/dL (75-193) 04/10/19 13:19 HDL Cholesterol 36 mg/dL (23-92) 04/10/19 13:19 TSH 0.77 uIU/ml (0.34-5.60) 04/10/19 13:19 Urine Source RANDOM 04/10/19 14:35 Urine Color YELLOW 04/10/19 14:35 Urine Clarity CLEAR (CLEAR) 04/10/19 14:35 Urine pH 6.0 (4.6 - 8.0) 04/10/19 14:35 Ur Specific [place] 1.015 (1.005-1.030) 04/10/19 14:35 Urine Protein NEGATIVE mg/dL (NEGATIVE) 04/10/19 14:35 Urine Glucose (UA) NEGATIVE mg/dL (NEGATIVE) 04/10/19 14:35 Urine Ketones NEGATIVE mg/dL (NEGATIVE) 04/10/19 14:35 Urine Blood NEGATIVE (NEGATIVE) 04/10/19 14:35 Urine Nitrate NEGATIVE (NEGATIVE) 04/10/19 14:35 Urine Bilirubin NEGATIVE (NEGATIVE) 04/10/19 14:35 Urine Urobilinogen 1.0 E.U./dL (0.2 - 1.0) 04/10/19 14:35 Ur Leukocyte Esterase NEGATIVE (NEGATIVE) 04/10/19 14:35 Urine RBC 0-2 /hpf (0-5) H 04/10/19 14:35 Urine WBC 0-2 /hpf (0-5) 04/10/19 14:35 Ur Epithelial Cells NONE SEEN /lpf (FEW) 04/10/19 14:35 Urine Bacteria FEW /hpf (NONE SEEN) 04/10/19 14:35 RPR NONREACTIVE (NONREACTIVE) 04/10/19 13:19 - Physical Exam Vitals and I&O: Vital Signs Temp 98.0 F 04/15/19 05:04 Pulse 92 04/15/19 05:04 Resp 19 04/15/19 05:04 BP 127/68 04/15/19 05:04 Pulse Ox 98 04/15/19 05:04 Intake & Output 04/14/19 04/15/19 04/15/19 18:59 06:59 18:59 Intake Total 2200 480 Balance 2200 480 Intake: Oral 2200 480 Other: # Voids 4 2 # Bowel Movements 1 1 Active Medications: Current Medications Ascorbic Acid (Vitamin C) 500 mg PO BID [facility] Stop: 06/09/19 20:59 Last Admin: 04/15/19 08:38 Dose: 500 mg Benztropine Mesylate (Cogentin) 1 mg PO BID [facility] Stop: 06/09/19 20:59 Last Admin: 04/15/19 08:39 Dose: 1 mg Carbidopa/Levodopa (Sinemet 25mg-100 Mg) 1 tab PO TID [facility] Stop: 06/09/19 20:59 Last Admin: 04/15/19 08:39 Dose: 1 tab Docusate Sodium (Colace) 100 mg PO DAILY [facility] Stop: 06/10/19 08:59 Last Admin: 04/15/19 08:39 Dose: 100 mg Fenofibrate (Tricor) 134 mg PO HS [facility] Stop: 06/09/19 20:59 Last Admin: 04/14/19 21:36 Dose: 134 mg Lactulose (Cephulac) 20 gm PO QID [facility] Stop: 06/09/19 20:59 Last Admin: 04/15/19 08:39 Dose: Not Given Levetiracetam (Keppra) 500 mg PO BID [facility] Stop: 06/09/19 20:59 Last Admin: 04/15/19 08:38 Dose: 500 mg Levocarnitine (Carnitor) 990 mg PO TID [facility] Stop: 06/10/19 08:59 Last Admin: 04/15/19 08:40 Dose: 990 mg Lorazepam (Ativan) 0.5 mg PO Q4H PRN; Protocol PRN Reason: Anxiety Stop: 06/09/19 20:08 Last Admin: 04/15/19 04:17 Dose: 0.5 mg Oxybutynin Chloride (Ditropan) 5 mg PO HS [facility] Stop: 06/09/19 20:59 Last Admin: 04/14/19 21:37 Dose: 5 mg Pantoprazole Sodium (Protonix) 40 mg PO BIDAC [facility] Stop: 06/10/19 07:29 Last Admin: 04/15/19 06:35 Dose: 40 mg Quetiapine Fumarate (Seroquel) 100 mg PO BID [facility]; Protocol Stop: 06/11/19 16:59 Last Admin: 04/15/19 08:39 Dose: 100 mg Sodium Chloride (Nacl Tab) 1 gm PO BID [facility] Stop: 06/09/19 20:59 Last Admin: 04/15/19 08:39 Dose: 1 gm General: demented HEENT: NC/AT, PERRLA Neck: Supple, No LAD Lungs: CTAB Cardiovascular: RRR, Normal S1, Normal S2 Abdomen: soft, non-tender, globular, positive bowel sound Extremities: excoriation, contracture, deformity - Procedures Procedures: Procedures Procedure Code Date COLONOSCOPY W/LESION REMOVAL 87130 09/17/17 EXCISION OF ASCENDING COLON, ENDO, DIAGN [id number] 09/17/17 EXCISION OF RECTUM, ENDO [id number] 09/17/17 EXCISION OF TRANSVERSE COLON, ENDO [id number] 09/17/17 EXCISION OF TRANSVERSE COLON, ENDO, DIAGN [id number] 09/17/17 GROUP PSYCHOTHERAPY 16380 12/06/15 GROUP PSYCHOTHERAPY GZHZZZZ 12/06/15 OTHER GROUP THERAPY 94.44 06/02/14 RECREATIONAL THERAPY 93.81 07/28/11 Internal Medicine Assmt/Plan - Assessment Assessment: ASSESSMENT AND PLAN: Leukopenia, osteoarthritis, hyperglycemia, obesity, hypertension, asthma, COPD, history of stroke, hydrocephalus, 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 - Plan Plan: PLAN: We will check the patient's hemoglobin A1c. Continue the patient on Sinemet. We will monitor the patient's white count closely. We will titrate the patient's antihypertensive medication. Continue on seizure medication, continue on Keppra. We will follow consult and recommendations.
--- NOTE | 2019-04-15 14:12 | Progress Notes ---
DATE: 04/14/2019 PSYCHOLOGY PROGRESS NOTE SUBJECTIVE: The patient is seen and is interviewed. The case is discussed with staff. The patient presents as irritable and easily agitated. The patient is presenting with mood swings. The staff reports the patient's yelling episodes have diminished somewhat; however, the patient continues to be easily agitated with explosive behavior. Staff reports the patient has not been physically aggressive towards anyone. The patient continued to state that he does not understand why he is in the hospital and needs to be discharged immediately. OBJECTIVE: Mood is irritable. Affect is constricted. Thought process indicates mood fluctuations as well as confusion. The patient denied any auditory or visual hallucinations or any delusions; however, the patient's psychotic process persists. There is some evidence of paranoid ideation. The patient continues to be intermittently verbally aggressive. ASSESSMENT AND PLAN: The patient's impulsivity and psychosis persist. We provided de-escalation and limit setting. We provided a cognitive and behavioral redirection. We encouraged the patient to demonstrate emotional and self-regulation and to verbalize his concerns versus acting out. We provided reality orientation, differentiation and integration. We will follow up in the next 2 days to continue the present treatment if the patient remains admitted on the unit. JOB# [id number] [place]
[2019-04-15] MEDS: Fenofibrate, Micronized 134 mg Cap PO SCH (20:54)
--- NOTE | 2019-04-15 23:34 | Progress Notes ---
DATE: 04/15/2019 PSYCHIATRIC PROGRESS NOTE SUBJECTIVE: Staff was spoken to. The patient is interviewed. Mood is noted to be irritable. Affect is constricted. Coping skills are noted to be very poor. The patient is still intrusive. The patient has impulsive behavior. He is being closely monitored at this time and the patient is redirected. The patient's coping skills are noted to be still poor. No side effects to the medications are noted. The patient is, at this time, on low dose of Seroquel at 100 mg twice a day and we are closely monitoring the patient's behavior. PLAN: To continue the patient with supportive therapy. I encouraged the patient to verbalize the concerns rather than to act out. [facility]# [id number]
[2019-04-16] MEDS: Pantoprazole 40 mg EC Tab PO SCH ×2 (06:35→16:09)
[2019-04-16] MEDS: Benztropine 1 MG TAB PO SCH ×2 (09:06→16:09)
[2019-04-16] MEDS: Multivitamin w/ Minerals Tab PO SCH (09:06)
[2019-04-16] MEDS: Lactulose 10 Gm/15 mL 30mL UDC PO SCH ×4 (09:06→20:53)
--- NOTE | 2019-04-16 13:09 | Internal Medicine Prog Note ---
Internal Medicine Subjective - Subjective Patient seen and examined:: with staff, chart reviewed Patient is:: awake, verbal, interactive, confused Per staff patient has:: no adverse event, no episodes of fall, poor appetite, tolerating meds Internal Medicine Objective - Results Result Diagrams: 04/10/19 13:19 04/10/19 13:19 Recent Labs: Laboratory Last Values WBC 4.5 Th/cmm (4.8-10.8) L 04/10/19 13:19 RBC 5.30 Mil/cmm (3.80-5.80) 04/10/19 13:19 Hgb 13.1 gm/dL (12-16) 04/10/19 13:19 Hct 41.7 % (41.0-60) 04/10/19 13:19 MCV 78.7 fl (80-99) L 04/10/19 13:19 MCH 24.7 pg (27.0-31.0) L 04/10/19 13:19 MCHC Differential 31.4 pg (28.0-36.0) 04/10/19 13:19 RDW 18.1 % (11.5-20.0) 04/10/19 13:19 Plt Count 168 Th/cmm (150-400) 04/10/19 13:19 MPV 8.5 fl 04/10/19 13:19 Neutrophils % 60.2 % (40.0-80.0) 04/10/19 13:19 Lymphocytes % 28.2 % (20.0-50.0) 04/10/19 13:19 Monocytes % 6.5 % (2.0-10.0) 04/10/19 13:19 Eosinophils % 4.1 % (0.0-5.0) 04/10/19 13:19 Basophils % 1.0 % (0.0-2.0) 04/10/19 13:19 Sodium 136 mEq/L (136-145) 04/10/19 13:19 Potassium 3.6 mEq/L (3.5-5.1) 04/10/19 13:19 Chloride 102 mEq/L (98-107) 04/10/19 13:19 Carbon Dioxide 26.6 mEq/L (21.0-31.0) 04/10/19 13:19 Anion Gap 11.0 (7.0-16.0) 04/10/19 13:19 BUN 12 mg/dL (7-25) 04/10/19 13:19 Creatinine 0.7 mg/dL (0.7-1.3) 04/10/19 13:19 Est GFR ( Amer) > 60.0 ml/min (>90) 04/10/19 13:19 Est GFR (Non-Af Amer) > 60.0 ml/min 04/10/19 13:19 BUN/Creatinine Ratio 17.1 04/10/19 13:19 Glucose 148 mg/dL (70-105) H 04/10/19 13:19 Calcium 9.4 mg/dL (8.6-10.3) 04/10/19 13:19 Total Bilirubin 0.5 mg/dL (0.3-1.0) 04/10/19 13:19 AST 24 U/L (13-39) 04/10/19 13:19 ALT 17 U/L (7-52) 04/10/19 13:19 Alkaline Phosphatase 53 U/L (34-104) 04/10/19 13:19 Total Protein 7.2 gm/dL (6.0-8.3) 04/10/19 13:19 Albumin 4.0 gm/dL (4.2-5.5) L 04/10/19 13:19 Globulin 3.2 gm/dL 04/10/19 13:19 Albumin/Globulin Ratio 1.3 (1.0-1.8) 04/10/19 13:19 Triglycerides 181 mg/dL (<150) H 04/10/19 13:19 Cholesterol 161 mg/dL (<200) 04/10/19 13:19 LDL Cholesterol Direct 102 mg/dL (75-193) 04/10/19 13:19 HDL Cholesterol 36 mg/dL (23-92) 04/10/19 13:19 TSH 0.77 uIU/ml (0.34-5.60) 04/10/19 13:19 Urine Source RANDOM 04/10/19 14:35 Urine Color YELLOW 04/10/19 14:35 Urine Clarity CLEAR (CLEAR) 04/10/19 14:35 Urine pH 6.0 (4.6 - 8.0) 04/10/19 14:35 Ur Specific [place] 1.015 (1.005-1.030) 04/10/19 14:35 Urine Protein NEGATIVE mg/dL (NEGATIVE) 04/10/19 14:35 Urine Glucose (UA) NEGATIVE mg/dL (NEGATIVE) 04/10/19 14:35 Urine Ketones NEGATIVE mg/dL (NEGATIVE) 04/10/19 14:35 Urine Blood NEGATIVE (NEGATIVE) 04/10/19 14:35 Urine Nitrate NEGATIVE (NEGATIVE) 04/10/19 14:35 Urine Bilirubin NEGATIVE (NEGATIVE) 04/10/19 14:35 Urine Urobilinogen 1.0 E.U./dL (0.2 - 1.0) 04/10/19 14:35 Ur Leukocyte Esterase NEGATIVE (NEGATIVE) 04/10/19 14:35 Urine RBC 0-2 /hpf (0-5) H 04/10/19 14:35 Urine WBC 0-2 /hpf (0-5) 04/10/19 14:35 Ur Epithelial Cells NONE SEEN /lpf (FEW) 04/10/19 14:35 Urine Bacteria FEW /hpf (NONE SEEN) 04/10/19 14:35 RPR NONREACTIVE (NONREACTIVE) 04/10/19 13:19 - Physical Exam Vitals and I&O: Vital Signs Temp 97.4 F 04/16/19 05:59 Pulse 79 04/16/19 05:59 Resp 18 04/16/19 05:59 BP 125/63 04/16/19 05:59 Pulse Ox 92 04/16/19 05:59 Intake & Output 04/15/19 04/16/19 04/16/19 18:59 06:59 18:59 Intake Total 1600 420 Balance 1600 420 Weight (lbs) 106.141 kg Intake: Oral 1600 420 Other: # Voids 4 2 # Bowel Movements 1 0 Weight Source Bedscale Active Medications: Current Medications Ascorbic Acid (Vitamin C) 500 mg PO BID DARA Stop: 06/09/19 20:59 Last Admin: 04/16/19 09:06 Dose: 500 mg Benztropine Mesylate (Cogentin) 1 mg PO BID DARA Stop: 06/09/19 20:59 Last Admin: 04/16/19 09:06 Dose: 1 mg Carbidopa/Levodopa (Sinemet 25mg-100 Mg) 1 tab PO TID DARA Stop: 06/09/19 20:59 Last Admin: 04/16/19 09:06 Dose: 1 tab Docusate Sodium (Colace) 100 mg PO DAILY [facility] Stop: 06/10/19 08:59 Last Admin: 04/16/19 09:06 Dose: 100 mg Fenofibrate (Tricor) 134 mg PO HS [facility] Stop: 06/09/19 20:59 Last Admin: 04/15/19 20:54 Dose: 134 mg Lactulose (Cephulac) 20 gm PO QID DARA Stop: 06/09/19 20:59 Last Admin: 04/16/19 09:06 Dose: 20 gm Levetiracetam (Keppra) 500 mg PO BID DARA Stop: 06/09/19 20:59 Last Admin: 04/16/19 09:06 Dose: 500 mg Levocarnitine (Carnitor) 990 mg PO TID [facility] Stop: 06/10/19 08:59 Last Admin: 04/16/19 09:06 Dose: 990 mg Lorazepam (Ativan) 0.5 mg PO Q4H PRN; Protocol PRN Reason: Anxiety Stop: 06/09/19 20:08 Last Admin: 04/15/19 04:17 Dose: 0.5 mg Oxybutynin Chloride (Ditropan) 5 mg PO HS [facility] Stop: 06/09/19 20:59 Last Admin: 04/15/19 20:54 Dose: 5 mg Pantoprazole Sodium (Protonix) 40 mg PO BIDAC [facility] Stop: 06/10/19 07:29 Last Admin: 04/16/19 06:35 Dose: 40 mg Quetiapine Fumarate (Seroquel) 100 mg PO BID [facility]; Protocol Stop: 06/11/19 16:59 Last Admin: 04/16/19 09:06 Dose: 100 mg Sodium Chloride (Nacl Tab) 1 gm PO BID DARA Stop: 06/09/19 20:59 Last Admin: 04/16/19 09:06 Dose: 1 gm General: demented HEENT: NC/AT, PERRLA Neck: Supple, No LAD Lungs: CTAB Cardiovascular: RRR, Normal S1, Normal S2 Abdomen: soft, non-tender, globular, positive bowel sound Extremities: excoriation, contracture, deformity - Procedures Procedures: Procedures Procedure Code Date COLONOSCOPY W/LESION REMOVAL 14008 09/17/17 EXCISION OF ASCENDING COLON, ENDO, DIAGN [id number] 09/17/17 EXCISION OF RECTUM, ENDO [id number] 09/17/17 EXCISION OF TRANSVERSE COLON, ENDO [id number] 09/17/17 EXCISION OF TRANSVERSE COLON, ENDO, DIAGN [id number] 09/17/17 GROUP PSYCHOTHERAPY 23637 12/06/15 GROUP PSYCHOTHERAPY GZHZZZZ 12/06/15 OTHER GROUP THERAPY 94.44 06/02/14 RECREATIONAL THERAPY 93.81 07/28/11 Internal Medicine Assmt/Plan - Assessment Assessment: ASSESSMENT AND PLAN: Leukopenia, osteoarthritis, hyperglycemia, obesity, hypertension, asthma, COPD, history of stroke, hydrocephalus, status post CAPACITY MANAGER shunt, Parkinson, hypercholesterolemia, seizure, hypertension, and constipation. - Plan Plan: PLAN: We will check the patient's hemoglobin A1c. Continue the patient on Sinemet. We will monitor the patient's white count closely. We will titrate the patient's antihypertensive medication. Continue on seizure medication, continue on Keppra. We will follow consult and recommendations. Nutritional Asmnt/Malnutr-PDOC - Dietary Evaluation Malnutrition Findings (Please click <Entered> for more info): Nutritional Asmnt/Malnutrition Start: 04/15/19 21: 50 Text: Status: Active Freq: Protocol: Document 04/15/19 21:50 MBONUS (Rec: 04/15/19 22:00 MBONUS [id number]) Nutritional Asmnt/Malnutrition Patient General Information Nutritional Screening Moderate Risk Diagnosis PSYCHOSIS Pertinent Medical Hx/Surgical Hx HTN, ASTHMA, COPD, STROKE, PARKINSONS, HYDROCEPHALUS Subjective Information NURSING NOTED INTAKE 100-100- 100% PER NURSING NOTE: "Patient is alert and oriented x2-3. Patient is easily agitated, labile and unpredictable. Patient is medication compliant." Current Diet Order/ Nutrition Support [facility] SOFT CHOPPED, VEGETARIAN Pertinent Medications VIT C, COLACE, CEPHULAC, PROTONIX Pertinent Labs 04/10 WBC 4.5, GLUC 148, ALB 4 Nutritional Hx/Data Height 1.83 m Height (Calculated Centimeters) 182.9 Current Weight (lbs) 106.141 kg Weight (Calculated Kilograms) 106.1 Weight (Calculated Grams) 552890.6 [place] Body Weight 178 % [place] Body Weight 131 Body Mass Index (BMI) 31.7 Weight Status Overweight GI Symptoms Last BM TODAY X 1 Skin Integrity/Comment: BAILEY Palomino Current %PO Good (75-100%) Estimated Nutritional Goals BEE in Kcals: Using Current wt Calories/Kcals/Kg 20-25 Kcals Calculated 1205-9455 Protein: Using Current wt Protein g/k.8-1 Protein Calculated 85-106 Nutritional Problem 1. Problem Problem NO NUTRITION RELATED CONCERN AT THIS TIME Intervention/Recommendation Comments RD TO FOLLOW UP IN 7 DAYS TO MONITOR PO INTAKE, LABS, WEIGHT Expected Outcomes/Goals Expected Outcomes/Goals PT TO CONTINUE TO CONSUME >75% ESTIMATED NUTRIENT NEEDS LATISHA SANTORO, RD
--- NOTE | 2019-04-16 20:27 | Progress Notes ---
DATE: 04/16/2019 PSYCHIATRIC PROGRESS NOTE SUBJECTIVE: Staff was spoken to. The patient is interviewed. Mood is noted to be irritable. Affect is constricted. Insight and judgment at this time are noted to be still impaired. Impulse control is noted to be limited. Coping skills noted to be limited. The patient has paranoia, but the aggressive behavior is being closely monitored and the patient has been compliant with the medication. ASSESSMENT: The patient is still having mood swings. PLAN: To continue the patient with the supportive therapy, encouraged the patient to verbalize the concerns rather than to act out. [facility]# [id number]
[2019-04-16] MEDS: Fenofibrate, Micronized 134 mg Cap PO SCH (20:53)
[2019-04-17] MEDS: Pantoprazole 40 mg EC Tab PO SCH ×2 (06:49→16:42)
[2019-04-17] MEDS: Lactulose 10 Gm/15 mL 30mL UDC PO SCH ×4 (08:27→20:36)
[2019-04-17] MEDS: Multivitamin w/ Minerals Tab PO SCH (08:28)
[2019-04-17] MEDS: Benztropine 1 MG TAB PO SCH ×2 (08:28→16:42)
--- NOTE | 2019-04-17 12:17 | Internal Medicine Prog Note ---
Internal Medicine Subjective - Subjective Patient seen and examined:: with staff, chart reviewed Patient is:: awake, verbal, interactive, confused Per staff patient has:: no adverse event, no episodes of fall, poor appetite, tolerating meds Internal Medicine Objective - Results Result Diagrams: 04/10/19 13:19 04/10/19 13:19 Recent Labs: Laboratory Last Values WBC 4.5 Th/cmm (4.8-10.8) L 04/10/19 13:19 RBC 5.30 Mil/cmm (3.80-5.80) 04/10/19 13:19 Hgb 13.1 gm/dL (12-16) 04/10/19 13:19 Hct 41.7 % (41.0-60) 04/10/19 13:19 MCV 78.7 fl (80-99) L 04/10/19 13:19 MCH 24.7 pg (27.0-31.0) L 04/10/19 13:19 MCHC Differential 31.4 pg (28.0-36.0) 04/10/19 13:19 RDW 18.1 % (11.5-20.0) 04/10/19 13:19 Plt Count 168 Th/cmm (150-400) 04/10/19 13:19 MPV 8.5 fl 04/10/19 13:19 Neutrophils % 60.2 % (40.0-80.0) 04/10/19 13:19 Lymphocytes % 28.2 % (20.0-50.0) 04/10/19 13:19 Monocytes % 6.5 % (2.0-10.0) 04/10/19 13:19 Eosinophils % 4.1 % (0.0-5.0) 04/10/19 13:19 Basophils % 1.0 % (0.0-2.0) 04/10/19 13:19 Sodium 136 mEq/L (136-145) 04/10/19 13:19 Potassium 3.6 mEq/L (3.5-5.1) 04/10/19 13:19 Chloride 102 mEq/L (98-107) 04/10/19 13:19 Carbon Dioxide 26.6 mEq/L (21.0-31.0) 04/10/19 13:19 Anion Gap 11.0 (7.0-16.0) 04/10/19 13:19 BUN 12 mg/dL (7-25) 04/10/19 13:19 Creatinine 0.7 mg/dL (0.7-1.3) 04/10/19 13:19 Est GFR ( Amer) > 60.0 ml/min (>90) 04/10/19 13:19 Est GFR (Non-Af Amer) > 60.0 ml/min 04/10/19 13:19 BUN/Creatinine Ratio 17.1 04/10/19 13:19 Glucose 148 mg/dL (70-105) H 04/10/19 13:19 Calcium 9.4 mg/dL (8.6-10.3) 04/10/19 13:19 Total Bilirubin 0.5 mg/dL (0.3-1.0) 04/10/19 13:19 AST 24 U/L (13-39) 04/10/19 13:19 ALT 17 U/L (7-52) 04/10/19 13:19 Alkaline Phosphatase 53 U/L (34-104) 04/10/19 13:19 Total Protein 7.2 gm/dL (6.0-8.3) 04/10/19 13:19 Albumin 4.0 gm/dL (4.2-5.5) L 04/10/19 13:19 Globulin 3.2 gm/dL 04/10/19 13:19 Albumin/Globulin Ratio 1.3 (1.0-1.8) 04/10/19 13:19 Triglycerides 181 mg/dL (<150) H 04/10/19 13:19 Cholesterol 161 mg/dL (<200) 04/10/19 13:19 LDL Cholesterol Direct 102 mg/dL (75-193) 04/10/19 13:19 HDL Cholesterol 36 mg/dL (23-92) 04/10/19 13:19 TSH 0.77 uIU/ml (0.34-5.60) 04/10/19 13:19 Urine Source RANDOM 04/10/19 14:35 Urine Color YELLOW 04/10/19 14:35 Urine Clarity CLEAR (CLEAR) 04/10/19 14:35 Urine pH 6.0 (4.6 - 8.0) 04/10/19 14:35 Ur Specific [place] 1.015 (1.005-1.030) 04/10/19 14:35 Urine Protein NEGATIVE mg/dL (NEGATIVE) 04/10/19 14:35 Urine Glucose (UA) NEGATIVE mg/dL (NEGATIVE) 04/10/19 14:35 Urine Ketones NEGATIVE mg/dL (NEGATIVE) 04/10/19 14:35 Urine Blood NEGATIVE (NEGATIVE) 04/10/19 14:35 Urine Nitrate NEGATIVE (NEGATIVE) 04/10/19 14:35 Urine Bilirubin NEGATIVE (NEGATIVE) 04/10/19 14:35 Urine Urobilinogen 1.0 E.U./dL (0.2 - 1.0) 04/10/19 14:35 Ur Leukocyte Esterase NEGATIVE (NEGATIVE) 04/10/19 14:35 Urine RBC 0-2 /hpf (0-5) H 04/10/19 14:35 Urine WBC 0-2 /hpf (0-5) 04/10/19 14:35 Ur Epithelial Cells NONE SEEN /lpf (FEW) 04/10/19 14:35 Urine Bacteria FEW /hpf (NONE SEEN) 04/10/19 14:35 RPR NONREACTIVE (NONREACTIVE) 04/10/19 13:19 - Physical Exam Vitals and I&O: Vital Signs Temp 97.2 F 04/17/19 06:23 Pulse 92 04/17/19 06:23 Resp 19 04/17/19 07:33 BP 140/76 04/17/19 06:23 Pulse Ox 98 04/17/19 06:23 Intake & Output 04/16/19 04/17/19 04/17/19 18:59 06:59 18:59 Intake Total 120 Balance 120 Intake: Oral 120 Other: # Voids 3 # Bowel Movements 1 Active Medications: Current Medications Ascorbic Acid (Vitamin C) 500 mg PO BID [facility] Stop: 06/09/19 20:59 Last Admin: 04/17/19 08:28 Dose: 500 mg Benztropine Mesylate (Cogentin) 1 mg PO BID [facility] Stop: 06/09/19 20:59 Last Admin: 04/17/19 08:28 Dose: 1 mg Carbidopa/Levodopa (Sinemet 25mg-100 Mg) 1 tab PO TID [facility]ARA Stop: 06/09/19 20:59 Last Admin: 04/17/19 08:27 Dose: 1 tab Docusate Sodium (Colace) 100 mg PO DAILY [facility] Stop: 06/10/19 08:59 Last Admin: 04/17/19 08:28 Dose: 100 mg Fenofibrate (Tricor) 134 mg PO HS [facility] Stop: 06/09/19 20:59 Last Admin: 04/16/19 20:53 Dose: 134 mg Lactulose (Cephulac) 20 gm PO QID [facility] Stop: 06/09/19 20:59 Last Admin: 04/17/19 08:27 Dose: 20 gm Levetiracetam (Keppra) 500 mg PO BID [facility] Stop: 06/09/19 20:59 Last Admin: 04/17/19 08:27 Dose: 500 mg Levocarnitine (Carnitor) 990 mg PO TID [facility] Stop: 06/10/19 08:59 Last Admin: 04/17/19 08:29 Dose: 990 mg Lorazepam (Ativan) 0.5 mg PO Q4H PRN; Protocol PRN Reason: Anxiety Stop: 06/09/19 20:08 Last Admin: 04/15/19 04:17 Dose: 0.5 mg Oxybutynin Chloride (Ditropan) 5 mg PO HS [facility] Stop: 06/09/19 20:59 Last Admin: 04/16/19 20:54 Dose: 5 mg Pantoprazole Sodium (Protonix) 40 mg PO BIDAC [facility] Stop: 06/10/19 07:29 Last Admin: 04/17/19 06:49 Dose: 40 mg Quetiapine Fumarate (Seroquel) 100 mg PO BID [facility]; Protocol Stop: 06/11/19 16:59 Last Admin: 04/17/19 08:29 Dose: 100 mg Sodium Chloride (Nacl Tab) 1 gm PO BID [facility] Stop: 06/09/19 20:59 Last Admin: 04/17/19 08:27 Dose: 1 gm General: demented HEENT: NC/AT, PERRLA Neck: Supple, No LAD Lungs: CTAB Cardiovascular: RRR, Normal S1, Normal S2 Abdomen: soft, non-tender, globular, positive bowel sound Extremities: excoriation, contracture, deformity - Procedures Procedures: Procedures Procedure Code Date COLONOSCOPY W/LESION REMOVAL 04775 09/17/17 EXCISION OF ASCENDING COLON, ENDO, DIAGN [id number] 09/17/17 EXCISION OF RECTUM, ENDO [id number] 09/17/17 EXCISION OF TRANSVERSE COLON, ENDO [id number] 09/17/17 EXCISION OF TRANSVERSE COLON, ENDO, DIAGN [id number] 09/17/17 GROUP PSYCHOTHERAPY 19936 12/06/15 GROUP PSYCHOTHERAPY GZHZZZZ 12/06/15 OTHER GROUP THERAPY 94.44 06/02/14 RECREATIONAL THERAPY 93.81 07/28/11 Internal Medicine Assmt/Plan - Assessment Assessment: ASSESSMENT AND PLAN: Leukopenia, osteoarthritis, hyperglycemia, obesity, hypertension, asthma, COPD, history of stroke, hydrocephalus, 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 - Plan Plan: PLAN: We will check the patient's hemoglobin A1c. Continue the patient on Sinemet. We will monitor the patient's white count closely. We will titrate the patient's antihypertensive medication. Continue on seizure medication, continue on Keppra. We will follow consult and recommendations. Nutritional Asmnt/Malnutr-PDOC - Dietary Evaluation Malnutrition Findings (Please click <Entered> for more info): Nutritional Asmnt/Malnutrition Start: 04/15/19 21: 50 Text: Status: Active Freq: Protocol: Document 04/15/19 21:50 MBONUS (Rec: 04/15/19 22:00 MBONUS [id number]) Nutritional Asmnt/Malnutrition Patient General Information Nutritional Screening Moderate Risk Diagnosis PSYCHOSIS Pertinent Medical Hx/Surgical Hx HTN, ASTHMA, COPD, STROKE, PARKINSONS, HYDROCEPHALUS Subjective Information NURSING NOTED INTAKE 100-100- 100% PER NURSING NOTE: "Patient is alert and oriented x2-3. Patient is easily agitated, labile and unpredictable. Patient is medication compliant." Current Diet Order/ Nutrition Support [facility] SOFT CHOPPED, VEGETARIAN Pertinent Medications VIT C, COLACE, CEPHULAC, PROTONIX Pertinent Labs 04/10 WBC 4.5, GLUC 148, ALB 4 Nutritional Hx/Data Height 1.83 m Height (Calculated Centimeters) 182.9 Current Weight (lbs) 106.141 kg Weight (Calculated Kilograms) 106.1 Weight (Calculated Grams) 892218.6 [place] Body Weight 178 % [place] Body Weight 131 Body Mass Index (BMI) 31.7 Weight Status Overweight GI Symptoms Last BM TODAY X 1 Skin Integrity/Comment: BAILEY Palomino Current %PO Good (75-100%) Estimated Nutritional Goals BEE in Kcals: Using Current wt Calories/Kcals/Kg 20-25 Kcals Calculated 6354-4255 Protein: Using Current wt Protein g/k.8-1 Protein Calculated 85-106 Nutritional Problem 1. Problem Problem NO NUTRITION RELATED CONCERN AT THIS TIME Intervention/Recommendation Comments RD TO FOLLOW UP IN 7 DAYS TO MONITOR PO INTAKE, LABS, WEIGHT Expected Outcomes/Goals Expected Outcomes/Goals PT TO CONTINUE TO CONSUME >75% ESTIMATED NUTRIENT NEEDS LATISHA SANTORO, RD
[2019-04-17] MEDS: Fenofibrate, Micronized 134 mg Cap PO SCH (20:37)
--- NOTE | 2019-04-17 21:17 | Progress Notes ---
DATE: 04/17/2019 PSYCHIATRIC PROGRESS NOTE SUBJECTIVE: Staff was spoken to. The patient is interviewed. Mood is noted to be less irritable. Affect is appropriate. The patient is not suicidal or homicidal. Insight and judgment are noted to be improving. Impulse control seems to be fair. No major behavioral problems are noted today. The patient has been compliant with the medication. The patient is currently on 100 mg twice a day of the Seroquel and has been able to tolerate. ASSESSMENT: The patient is stabilizing. If the patient continues to be this way, possibly the patient is going to be [facility]. JOB# [id number]
--- NOTE | 2019-04-18 02:47 | Progress Notes ---
DATE: 04/16/2019 PSYCHOLOGY PROGRESS NOTE SUBJECTIVE: The patient is seen and is interviewed. Case is discussed with staff. The patient presents as easily agitated and irritable. Staff reports the patient is difficult to redirect with poor impulse control. The patient remains suspicious. There is evidence of paranoid delusion. Staff reports the patient has been compliant with his p.o. medication. The patient is asking to be discharged. OBJECTIVE: Mood is irritable. Affect is constricted. Thought process shows to be concrete and confused. The patient's thought content includes paranoid delusion. The patient denied any auditory or visual hallucinations. The patient has been compliant with medication, but poor impulse control persists. ASSESSMENT AND PLAN: The patient is continuing to have mood fluctuations. We provided limit setting and de-escalation. We encouraged the patient to demonstrate emotional and self-regulation and to verbalize his concerns versus acting out. We provided coping strategies for chronic severe mental illness. We provided reality orientation, differentiation, and integration. We provided positive reinforcement and remotivation for the patient to become compliant and stay compliant with all aspects of his care and treatment. We will follow up in 2 days to continue the present treatment if the patient remains admitted on the unit. JOB# [id number] [place]
[2019-04-18] MEDS: Pantoprazole 40 mg EC Tab PO SCH ×2 (06:36→16:46)
[2019-04-18] MEDS: Lactulose 10 Gm/15 mL 30mL UDC PO SCH ×4 (10:00→20:54)
[2019-04-18] MEDS: Benztropine 1 MG TAB PO SCH ×2 (10:00→16:45)
[2019-04-18] MEDS: Multivitamin w/ Minerals Tab PO SCH (10:00)
--- NOTE | 2019-04-18 12:27 | Internal Medicine Prog Note ---
Internal Medicine Subjective - Subjective Patient seen and examined:: with staff, chart reviewed Patient is:: awake, verbal, interactive, confused Per staff patient has:: no adverse event, no episodes of fall, poor appetite, tolerating meds Internal Medicine Objective - Results Result Diagrams: 04/10/19 13:19 04/10/19 13:19 Recent Labs: Laboratory Last Values WBC 4.5 Th/cmm (4.8-10.8) L 04/10/19 13:19 RBC 5.30 Mil/cmm (3.80-5.80) 04/10/19 13:19 Hgb 13.1 gm/dL (12-16) 04/10/19 13:19 Hct 41.7 % (41.0-60) 04/10/19 13:19 MCV 78.7 fl (80-99) L 04/10/19 13:19 MCH 24.7 pg (27.0-31.0) L 04/10/19 13:19 MCHC Differential 31.4 pg (28.0-36.0) 04/10/19 13:19 RDW 18.1 % (11.5-20.0) 04/10/19 13:19 Plt Count 168 Th/cmm (150-400) 04/10/19 13:19 MPV 8.5 fl 04/10/19 13:19 Neutrophils % 60.2 % (40.0-80.0) 04/10/19 13:19 Lymphocytes % 28.2 % (20.0-50.0) 04/10/19 13:19 Monocytes % 6.5 % (2.0-10.0) 04/10/19 13:19 Eosinophils % 4.1 % (0.0-5.0) 04/10/19 13:19 Basophils % 1.0 % (0.0-2.0) 04/10/19 13:19 Sodium 136 mEq/L (136-145) 04/10/19 13:19 Potassium 3.6 mEq/L (3.5-5.1) 04/10/19 13:19 Chloride 102 mEq/L (98-107) 04/10/19 13:19 Carbon Dioxide 26.6 mEq/L (21.0-31.0) 04/10/19 13:19 Anion Gap 11.0 (7.0-16.0) 04/10/19 13:19 BUN 12 mg/dL (7-25) 04/10/19 13:19 Creatinine 0.7 mg/dL (0.7-1.3) 04/10/19 13:19 Est GFR ( Amer) > 60.0 ml/min (>90) 04/10/19 13:19 Est GFR (Non-Af Amer) > 60.0 ml/min 04/10/19 13:19 BUN/Creatinine Ratio 17.1 04/10/19 13:19 Glucose 148 mg/dL (70-105) H 04/10/19 13:19 Calcium 9.4 mg/dL (8.6-10.3) 04/10/19 13:19 Total Bilirubin 0.5 mg/dL (0.3-1.0) 04/10/19 13:19 AST 24 U/L (13-39) 04/10/19 13:19 ALT 17 U/L (7-52) 04/10/19 13:19 Alkaline Phosphatase 53 U/L (34-104) 04/10/19 13:19 Total Protein 7.2 gm/dL (6.0-8.3) 04/10/19 13:19 Albumin 4.0 gm/dL (4.2-5.5) L 04/10/19 13:19 Globulin 3.2 gm/dL 04/10/19 13:19 Albumin/Globulin Ratio 1.3 (1.0-1.8) 04/10/19 13:19 Triglycerides 181 mg/dL (<150) H 04/10/19 13:19 Cholesterol 161 mg/dL (<200) 04/10/19 13:19 LDL Cholesterol Direct 102 mg/dL (75-193) 04/10/19 13:19 HDL Cholesterol 36 mg/dL (23-92) 04/10/19 13:19 TSH 0.77 uIU/ml (0.34-5.60) 04/10/19 13:19 Urine Source RANDOM 04/10/19 14:35 Urine Color YELLOW 04/10/19 14:35 Urine Clarity CLEAR (CLEAR) 04/10/19 14:35 Urine pH 6.0 (4.6 - 8.0) 04/10/19 14:35 Ur Specific [place] 1.015 (1.005-1.030) 04/10/19 14:35 Urine Protein NEGATIVE mg/dL (NEGATIVE) 04/10/19 14:35 Urine Glucose (UA) NEGATIVE mg/dL (NEGATIVE) 04/10/19 14:35 Urine Ketones NEGATIVE mg/dL (NEGATIVE) 04/10/19 14:35 Urine Blood NEGATIVE (NEGATIVE) 04/10/19 14:35 Urine Nitrate NEGATIVE (NEGATIVE) 04/10/19 14:35 Urine Bilirubin NEGATIVE (NEGATIVE) 04/10/19 14:35 Urine Urobilinogen 1.0 E.U./dL (0.2 - 1.0) 04/10/19 14:35 Ur Leukocyte Esterase NEGATIVE (NEGATIVE) 04/10/19 14:35 Urine RBC 0-2 /hpf (0-5) H 04/10/19 14:35 Urine WBC 0-2 /hpf (0-5) 04/10/19 14:35 Ur Epithelial Cells NONE SEEN /lpf (FEW) 04/10/19 14:35 Urine Bacteria FEW /hpf (NONE SEEN) 04/10/19 14:35 RPR NONREACTIVE (NONREACTIVE) 04/10/19 13:19 - Physical Exam Vitals and I&O: Vital Signs Temp 97.5 F 04/18/19 06:03 Pulse 91 04/18/19 06:03 Resp 20 04/18/19 06:03 BP 148/86 04/18/19 06:03 Pulse Ox 92 04/18/19 06:03 Intake & Output 04/17/19 04/18/19 04/18/19 18:59 06:59 18:59 Intake Total 360 Balance 360 Intake: Oral 360 Other: # Voids 3 # Bowel Movements 1 Active Medications: Current Medications Ascorbic Acid (Vitamin C) 500 mg PO BID [facility] Stop: 06/09/19 20:59 Last Admin: 04/18/19 10:00 Dose: 500 mg Benztropine Mesylate (Cogentin) 1 mg PO BID [facility] Stop: 06/09/19 20:59 Last Admin: 04/18/19 10:00 Dose: 1 mg Carbidopa/Levodopa (Sinemet 25mg-100 Mg) 1 tab PO TID [facility] Stop: 06/09/19 20:59 Last Admin: 04/18/19 10:00 Dose: 1 tab Docusate Sodium (Colace) 100 mg PO DAILY [facility] Stop: 06/10/19 08:59 Last Admin: 04/18/19 10:00 Dose: 100 mg Fenofibrate (Tricor) 134 mg PO HS [facility] Stop: 06/09/19 20:59 Last Admin: 04/17/19 20:37 Dose: 134 mg Lactulose (Cephulac) 20 gm PO QID [facility] Stop: 06/09/19 20:59 Last Admin: 04/18/19 10:00 Dose: 20 gm Levetiracetam (Keppra) 500 mg PO BID [facility] Stop: 06/09/19 20:59 Last Admin: 04/18/19 10:00 Dose: 500 mg Levocarnitine (Carnitor) 990 mg PO TID [facility] Stop: 06/10/19 08:59 Last Admin: 04/18/19 10:00 Dose: 990 mg Lorazepam (Ativan) 0.5 mg PO Q4H PRN; Protocol PRN Reason: Anxiety Stop: 06/09/19 20:08 Last Admin: 04/17/19 20:37 Dose: 0.5 mg Oxybutynin Chloride (Ditropan) 5 mg PO HS [facility] Stop: 06/09/19 20:59 Last Admin: 04/17/19 20:37 Dose: 5 mg Pantoprazole Sodium (Protonix) 40 mg PO BIDAC [facility] Stop: 06/10/19 07:29 Last Admin: 04/18/19 06:36 Dose: 40 mg Quetiapine Fumarate (Seroquel) 100 mg PO BID [facility]; Protocol Stop: 06/11/19 16:59 Last Admin: 04/18/19 10:00 Dose: 100 mg Sodium Chloride (Nacl Tab) 1 gm PO BID [facility] Stop: 06/09/19 20:59 Last Admin: 04/18/19 10:00 Dose: 1 gm General: demented HEENT: NC/AT, PERRLA Neck: Supple, No LAD Lungs: CTAB Cardiovascular: RRR, Normal S1, Normal S2 Abdomen: soft, non-tender, globular, positive bowel sound Extremities: excoriation, contracture, deformity - Procedures Procedures: Procedures Procedure Code Date COLONOSCOPY W/LESION REMOVAL 67375 09/17/17 EXCISION OF ASCENDING COLON, ENDO, DIAGN [id number] 09/17/17 EXCISION OF RECTUM, ENDO [id number] 09/17/17 EXCISION OF TRANSVERSE COLON, ENDO [id number] 09/17/17 EXCISION OF TRANSVERSE COLON, ENDO, DIAGN [id number] 09/17/17 GROUP PSYCHOTHERAPY 38741 12/06/15 GROUP PSYCHOTHERAPY GZHZZZZ 12/06/15 OTHER GROUP THERAPY 94.44 06/02/14 RECREATIONAL THERAPY 93.81 07/28/11 Internal Medicine Assmt/Plan - Assessment Assessment: ASSESSMENT AND PLAN: Leukopenia, osteoarthritis, hyperglycemia, obesity, hypertension, asthma, COPD, history of stroke, hydrocephalus, status post BUSINESS LIAISON OFFICER shunt, Parkinson, hypercholesterolemia, seizure, hypertension, and constipation. - Plan Plan: PLAN: We will check the patient's hemoglobin A1c. Continue the patient on Sinemet. We will monitor the patient's white count closely. We will titrate the patient's antihypertensive medication. Continue on seizure medication, continue on Keppra. We will follow consult and recommendations. Nutritional Asmnt/Malnutr-PDOC - Dietary Evaluation Malnutrition Findings (Please click <Entered> for more info): Nutritional Asmnt/Malnutrition Start: 04/15/19 21: 50 Text: Status: Active Freq: Protocol: Document 04/15/19 21:50 MBONUS (Rec: 04/15/19 22:00 MBONUS [id number]) Nutritional Asmnt/Malnutrition Patient General Information Nutritional Screening Moderate Risk Diagnosis PSYCHOSIS Pertinent Medical Hx/Surgical Hx HTN, ASTHMA, COPD, STROKE, PARKINSONS, HYDROCEPHALUS Subjective Information NURSING NOTED INTAKE 100-100- 100% PER NURSING NOTE: "Patient is alert and oriented x2-3. Patient is easily agitated, labile and unpredictable. Patient is medication compliant." Current Diet Order/ Nutrition Support [facility] SOFT CHOPPED, VEGETARIAN Pertinent Medications VIT C, COLACE, CEPHULAC, PROTONIX Pertinent Labs 04/10 WBC 4.5, GLUC 148, ALB 4 Nutritional Hx/Data Height 1.83 m Height (Calculated Centimeters) 182.9 Current Weight (lbs) 106.141 kg Weight (Calculated Kilograms) 106.1 Weight (Calculated Grams) 282874.6 [place] Body Weight 178 % [place] Body Weight 131 Body Mass Index (BMI) 31.7 Weight Status Overweight GI Symptoms Last BM TODAY X 1 Skin Integrity/Comment: BAILEY Palomino Current %PO Good (75-100%) Estimated Nutritional Goals BEE in Kcals: Using Current wt Calories/Kcals/Kg 20-25 Kcals Calculated 7467-8845 Protein: Using Current wt Protein g/k.8-1 Protein Calculated 85-106 Nutritional Problem 1. Problem Problem NO NUTRITION RELATED CONCERN AT THIS TIME Intervention/Recommendation Comments RD TO FOLLOW UP IN 7 DAYS TO MONITOR PO INTAKE, LABS, WEIGHT Expected Outcomes/Goals Expected Outcomes/Goals PT TO CONTINUE TO CONSUME >75% ESTIMATED NUTRIENT NEEDS LATISHA SANTORO, RD
--- NOTE | 2019-04-18 20:29 | Progress Notes ---
DATE: 04/18/2019 PSYCHOLOGY PROGRESS NOTE SUBJECTIVE: The patient is seen and is interviewed. Case is discussed with staff. The patient presents as less irritable on this visit. The patient is not presenting as oppositional or dismissive as before. Staff reports the patient's impulse control seems to be improving and that there have been no behavioral problems in the last 24 hours. The patient states that he is ready to be discharged and asked for the date of discharge. This was deferred to case management and the attending psychiatrist. OBJECTIVE: Mood is less irritable. Affect is mood congruent. Thought process seems to be more goal oriented. The patient denied any hallucinations or delusions. The patient's behavior indicates that impulse control seems to be improving. The patient is taking his p.o. medications. ASSESSMENT AND PLAN: The patient is possibly approaching baseline stabilization. We provided positive reinforcement for the patient to stay compliant with his care and treatment. We provided coping strategies for chronic severe mental illness. We encouraged the patient to be able to demonstrate emotional and self-regulation and to verbalize his concerns versus acting out. We encouraged the patient to be able to follow through with staff direction at his placement and to continue to follow treatment recommendations. We will follow up in 2 days if the patient is present on the unit. JOB# [id number] [place]
[2019-04-18] MEDS: Fenofibrate, Micronized 134 mg Cap PO SCH (20:54)
--- NOTE | 2019-04-18 20:57 | Progress Notes ---
DATE: 04/18/2019 PSYCHIATRIC PROGRESS NOTE SUBJECTIVE: Staff was spoken to. The patient is irritable. Affect is constricted. Insight and judgment are noted to be still impaired. Impulse control seems to be limited. The patient has been testing the limits today. The patient is redirected. No side effects to the medications are noted. The patient is currently on Seroquel and is also on carbidopa/levodopa for his parkinsonian symptoms. ASSESSMENT: The patient is impulsive today. PLAN: To continue the patient with the supportive therapy and followup. JOB# [id number]
[2019-04-19] MEDS: Pantoprazole 40 mg EC Tab PO SCH ×2 (06:50→16:59)
[2019-04-19] MEDS: Lactulose 10 Gm/15 mL 30mL UDC PO SCH ×4 (08:28→21:11)
[2019-04-19] MEDS: Multivitamin w/ Minerals Tab PO SCH (08:29)
[2019-04-19] MEDS: Benztropine 1 MG TAB PO SCH ×2 (08:29→16:58)
--- NOTE | 2019-04-19 13:59 | Internal Medicine Prog Note ---
Internal Medicine Subjective - Subjective Patient seen and examined:: with staff, chart reviewed Patient is:: awake, verbal, interactive, confused Per staff patient has:: no adverse event, no episodes of fall, poor appetite, tolerating meds Internal Medicine Objective - Results Result Diagrams: 04/10/19 13:19 04/10/19 13:19 Recent Labs: Laboratory Last Values WBC 4.5 Th/cmm (4.8-10.8) L 04/10/19 13:19 RBC 5.30 Mil/cmm (3.80-5.80) 04/10/19 13:19 Hgb 13.1 gm/dL (12-16) 04/10/19 13:19 Hct 41.7 % (41.0-60) 04/10/19 13:19 MCV 78.7 fl (80-99) L 04/10/19 13:19 MCH 24.7 pg (27.0-31.0) L 04/10/19 13:19 MCHC Differential 31.4 pg (28.0-36.0) 04/10/19 13:19 RDW 18.1 % (11.5-20.0) 04/10/19 13:19 Plt Count 168 Th/cmm (150-400) 04/10/19 13:19 MPV 8.5 fl 04/10/19 13:19 Neutrophils % 60.2 % (40.0-80.0) 04/10/19 13:19 Lymphocytes % 28.2 % (20.0-50.0) 04/10/19 13:19 Monocytes % 6.5 % (2.0-10.0) 04/10/19 13:19 Eosinophils % 4.1 % (0.0-5.0) 04/10/19 13:19 Basophils % 1.0 % (0.0-2.0) 04/10/19 13:19 Sodium 136 mEq/L (136-145) 04/10/19 13:19 Potassium 3.6 mEq/L (3.5-5.1) 04/10/19 13:19 Chloride 102 mEq/L (98-107) 04/10/19 13:19 Carbon Dioxide 26.6 mEq/L (21.0-31.0) 04/10/19 13:19 Anion Gap 11.0 (7.0-16.0) 04/10/19 13:19 BUN 12 mg/dL (7-25) 04/10/19 13:19 Creatinine 0.7 mg/dL (0.7-1.3) 04/10/19 13:19 Est GFR ( Amer) > 60.0 ml/min (>90) 04/10/19 13:19 Est GFR (Non-Af Amer) > 60.0 ml/min 04/10/19 13:19 BUN/Creatinine Ratio 17.1 04/10/19 13:19 Glucose 148 mg/dL (70-105) H 04/10/19 13:19 Calcium 9.4 mg/dL (8.6-10.3) 04/10/19 13:19 Total Bilirubin 0.5 mg/dL (0.3-1.0) 04/10/19 13:19 AST 24 U/L (13-39) 04/10/19 13:19 ALT 17 U/L (7-52) 04/10/19 13:19 Alkaline Phosphatase 53 U/L (34-104) 04/10/19 13:19 Total Protein 7.2 gm/dL (6.0-8.3) 04/10/19 13:19 Albumin 4.0 gm/dL (4.2-5.5) L 04/10/19 13:19 Globulin 3.2 gm/dL 04/10/19 13:19 Albumin/Globulin Ratio 1.3 (1.0-1.8) 04/10/19 13:19 Triglycerides 181 mg/dL (<150) H 04/10/19 13:19 Cholesterol 161 mg/dL (<200) 04/10/19 13:19 LDL Cholesterol Direct 102 mg/dL (75-193) 04/10/19 13:19 HDL Cholesterol 36 mg/dL (23-92) 04/10/19 13:19 TSH 0.77 uIU/ml (0.34-5.60) 04/10/19 13:19 Urine Source RANDOM 04/10/19 14:35 Urine Color YELLOW 04/10/19 14:35 Urine Clarity CLEAR (CLEAR) 04/10/19 14:35 Urine pH 6.0 (4.6 - 8.0) 04/10/19 14:35 Ur Specific [place] 1.015 (1.005-1.030) 04/10/19 14:35 Urine Protein NEGATIVE mg/dL (NEGATIVE) 04/10/19 14:35 Urine Glucose (UA) NEGATIVE mg/dL (NEGATIVE) 04/10/19 14:35 Urine Ketones NEGATIVE mg/dL (NEGATIVE) 04/10/19 14:35 Urine Blood NEGATIVE (NEGATIVE) 04/10/19 14:35 Urine Nitrate NEGATIVE (NEGATIVE) 04/10/19 14:35 Urine Bilirubin NEGATIVE (NEGATIVE) 04/10/19 14:35 Urine Urobilinogen 1.0 E.U./dL (0.2 - 1.0) 04/10/19 14:35 Ur Leukocyte Esterase NEGATIVE (NEGATIVE) 04/10/19 14:35 Urine RBC 0-2 /hpf (0-5) H 04/10/19 14:35 Urine WBC 0-2 /hpf (0-5) 04/10/19 14:35 Ur Epithelial Cells NONE SEEN /lpf (FEW) 04/10/19 14:35 Urine Bacteria FEW /hpf (NONE SEEN) 04/10/19 14:35 RPR NONREACTIVE (NONREACTIVE) 04/10/19 13:19 - Physical Exam Vitals and I&O: Vital Signs Temp 97.6 F 04/18/19 20:27 Pulse 81 04/18/19 20:27 Resp 18 04/18/19 20:27 BP 126/82 04/18/19 20:27 Pulse Ox 96 04/18/19 20:27 Intake & Output 04/18/19 04/19/19 04/19/19 18:59 06:59 18:59 Intake Total 1200 200 Output Total 2 Balance 1200 198 Intake: Oral 1200 200 Output: Urine 2 Other: # Voids 4 # Bowel Movements 1 Active Medications: Current Medications Ascorbic Acid (Vitamin C) 500 mg PO BID [facility] Stop: 06/09/19 20:59 Last Admin: 04/19/19 08:28 Dose: 500 mg Benztropine Mesylate (Cogentin) 1 mg PO BID [facility] Stop: 06/09/19 20:59 Last Admin: 04/19/19 08:29 Dose: 1 mg Carbidopa/Levodopa (Sinemet 25mg-100 Mg) 1 tab PO TID [facility] Stop: 06/09/19 20:59 Last Admin: 04/19/19 08:29 Dose: 1 tab Docusate Sodium (Colace) 100 mg PO DAILY [facility] Stop: 06/10/19 08:59 Last Admin: 04/19/19 08:28 Dose: 100 mg Fenofibrate (Tricor) 134 mg PO HS [facility] Stop: 06/09/19 20:59 Last Admin: 04/18/19 20:54 Dose: 134 mg Lactulose (Cephulac) 20 gm PO QID [facility] Stop: 06/09/19 20:59 Last Admin: 04/19/19 08:28 Dose: 20 gm Levetiracetam (Keppra) 500 mg PO BID [facility] Stop: 06/09/19 20:59 Last Admin: 04/19/19 08:28 Dose: 500 mg Levocarnitine (Carnitor) 990 mg PO TID [facility] Stop: 06/10/19 08:59 Last Admin: 04/19/19 08:28 Dose: 990 mg Lorazepam (Ativan) 0.5 mg PO Q4H PRN; Protocol PRN Reason: Anxiety Stop: 06/09/19 20:08 Last Admin: 04/18/19 20:54 Dose: 0.5 mg Oxybutynin Chloride (Ditropan) 5 mg PO HS [facility] Stop: 06/09/19 20:59 Last Admin: 04/18/19 20:54 Dose: 5 mg Pantoprazole Sodium (Protonix) 40 mg PO BIDAC [facility] Stop: 06/10/19 07:29 Last Admin: 04/19/19 06:50 Dose: 40 mg Quetiapine Fumarate (Seroquel) 100 mg PO BID [facility]; Protocol Stop: 06/11/19 16:59 Last Admin: 04/19/19 08:29 Dose: 100 mg Sodium Chloride (Nacl Tab) 1 gm PO BID [facility] Stop: 06/09/19 20:59 Last Admin: 04/19/19 08:29 Dose: 1 gm General: demented HEENT: NC/AT, PERRLA Neck: Supple, No LAD Lungs: CTAB Cardiovascular: RRR, Normal S1, Normal S2 Abdomen: soft, non-tender, globular, positive bowel sound Extremities: excoriation, contracture, deformity - Procedures Procedures: Procedures Procedure Code Date COLONOSCOPY W/LESION REMOVAL 60056 09/17/17 EXCISION OF ASCENDING COLON, ENDO, DIAGN [id number] 09/17/17 EXCISION OF RECTUM, ENDO [id number] 09/17/17 EXCISION OF TRANSVERSE COLON, ENDO [id number] 09/17/17 EXCISION OF TRANSVERSE COLON, ENDO, DIAGN [id number] 09/17/17 GROUP PSYCHOTHERAPY 47894 12/06/15 GROUP PSYCHOTHERAPY GZHZZZZ 12/06/15 OTHER GROUP THERAPY 94.44 06/02/14 RECREATIONAL THERAPY 93.81 07/28/11 Internal Medicine Assmt/Plan - Assessment Assessment: ASSESSMENT AND PLAN: Leukopenia, osteoarthritis, hyperglycemia, obesity, hypertension, asthma, COPD, history of stroke, hydrocephalus, 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 - Plan Plan: PLAN: We will check the patient's hemoglobin A1c. Continue the patient on Sinemet. We will monitor the patient's white count closely. We will titrate the patient's antihypertensive medication. Continue on seizure medication, continue on Keppra. We will follow consult and recommendations. Nutritional Asmnt/Malnutr-PDOC - Dietary Evaluation Malnutrition Findings (Please click <Entered> for more info): Nutritional Asmnt/Malnutrition Start: 04/15/19 21: 50 Text: Status: Active Freq: Protocol: Document 04/15/19 21:50 MBONUS (Rec: 04/15/19 22:00 MBONUS [id number]) Nutritional Asmnt/Malnutrition Patient General Information Nutritional Screening Moderate Risk Diagnosis PSYCHOSIS Pertinent Medical Hx/Surgical Hx HTN, ASTHMA, COPD, STROKE, PARKINSONS, HYDROCEPHALUS Subjective Information NURSING NOTED INTAKE 100-100- 100% PER NURSING NOTE: "Patient is alert and oriented x2-3. Patient is easily agitated, labile and unpredictable. Patient is medication compliant." Current Diet Order/ Nutrition Support [facility] SOFT CHOPPED, VEGETARIAN Pertinent Medications VIT C, COLACE, CEPHULAC, PROTONIX Pertinent Labs 04/10 WBC 4.5, GLUC 148, ALB 4 Nutritional Hx/Data Height 1.83 m Height (Calculated Centimeters) 182.9 Current Weight (lbs) 106.141 kg Weight (Calculated Kilograms) 106.1 Weight (Calculated Grams) 792504.6 [place] Body Weight 178 % [place] Body Weight 131 Body Mass Index (BMI) 31.7 Weight Status Overweight GI Symptoms Last BM TODAY X 1 Skin Integrity/Comment: BAILEY Palomino Current %PO Good (75-100%) Estimated Nutritional Goals BEE in Kcals: Using Current wt Calories/Kcals/Kg 20-25 Kcals Calculated 2478-8016 Protein: Using Current wt Protein g/k.8-1 Protein Calculated 85-106 Nutritional Problem 1. Problem Problem NO NUTRITION RELATED CONCERN AT THIS TIME Intervention/Recommendation Comments RD TO FOLLOW UP IN 7 DAYS TO MONITOR PO INTAKE, LABS, WEIGHT Expected Outcomes/Goals Expected Outcomes/Goals PT TO CONTINUE TO CONSUME >75% ESTIMATED NUTRIENT NEEDS LATISHA SANTORO, RD
[2019-04-19] MEDS ORDERED: Magnesium Hydroxide (MOM) 30 mL UDC PO PRN (15:31)
[2019-04-19] MEDS ORDERED: Maalox 30 mL Cup PO PRN (15:31)
--- NOTE | 2019-04-19 18:55 | Progress Notes ---
DATE: 04/19/2019 PSYCHIATRIC PROGRESS NOTE SUBJECTIVE: Staff was spoken to. The patient is interviewed. Mood is noted to be irritable. Affect is constricted. The patient denies any command hallucinations. Insight and judgment at this time are noted to be improving. Impulse control seems to be better today. Sleep and appetite are noted to be improving. ASSESSMENT: The patient's psychosis is resolving. PLAN: To continue the patient with supportive therapy and closely monitor for any sexualized behavior. JOB# [id number]
[2019-04-19] MEDS: Fenofibrate, Micronized 134 mg Cap PO SCH (21:12)
[2019-04-20] MEDS: Pantoprazole 40 mg EC Tab PO SCH ×2 (06:33→17:49)
[2019-04-20] MEDS: Lactulose 10 Gm/15 mL 30mL UDC PO SCH ×4 (08:26→20:52)
[2019-04-20] MEDS: Multivitamin w/ Minerals Tab PO SCH (08:27)
[2019-04-20] MEDS: Benztropine 1 MG TAB PO SCH ×2 (08:27→17:49)
[2019-04-20] MEDS ORDERED: Multivitamin Tab PO SCH (09:00)
--- NOTE | 2019-04-20 14:03 | Internal Medicine Prog Note ---
Internal Medicine Subjective - Subjective Patient seen and examined:: with staff, chart reviewed Patient is:: awake, verbal, interactive, confused Per staff patient has:: no adverse event, no episodes of fall, poor appetite, tolerating meds Internal Medicine Objective - Results Result Diagrams: 04/10/19 13:19 04/10/19 13:19 Recent Labs: Laboratory Last Values WBC 4.5 Th/cmm (4.8-10.8) L 04/10/19 13:19 RBC 5.30 Mil/cmm (3.80-5.80) 04/10/19 13:19 Hgb 13.1 gm/dL (12-16) 04/10/19 13:19 Hct 41.7 % (41.0-60) 04/10/19 13:19 MCV 78.7 fl (80-99) L 04/10/19 13:19 MCH 24.7 pg (27.0-31.0) L 04/10/19 13:19 MCHC Differential 31.4 pg (28.0-36.0) 04/10/19 13:19 RDW 18.1 % (11.5-20.0) 04/10/19 13:19 Plt Count 168 Th/cmm (150-400) 04/10/19 13:19 MPV 8.5 fl 04/10/19 13:19 Neutrophils % 60.2 % (40.0-80.0) 04/10/19 13:19 Lymphocytes % 28.2 % (20.0-50.0) 04/10/19 13:19 Monocytes % 6.5 % (2.0-10.0) 04/10/19 13:19 Eosinophils % 4.1 % (0.0-5.0) 04/10/19 13:19 Basophils % 1.0 % (0.0-2.0) 04/10/19 13:19 Sodium 136 mEq/L (136-145) 04/10/19 13:19 Potassium 3.6 mEq/L (3.5-5.1) 04/10/19 13:19 Chloride 102 mEq/L (98-107) 04/10/19 13:19 Carbon Dioxide 26.6 mEq/L (21.0-31.0) 04/10/19 13:19 Anion Gap 11.0 (7.0-16.0) 04/10/19 13:19 BUN 12 mg/dL (7-25) 04/10/19 13:19 Creatinine 0.7 mg/dL (0.7-1.3) 04/10/19 13:19 Est GFR ( Amer) > 60.0 ml/min (>90) 04/10/19 13:19 Est GFR (Non-Af Amer) > 60.0 ml/min 04/10/19 13:19 BUN/Creatinine Ratio 17.1 04/10/19 13:19 Glucose 148 mg/dL (70-105) H 04/10/19 13:19 Calcium 9.4 mg/dL (8.6-10.3) 04/10/19 13:19 Total Bilirubin 0.5 mg/dL (0.3-1.0) 04/10/19 13:19 AST 24 U/L (13-39) 04/10/19 13:19 ALT 17 U/L (7-52) 04/10/19 13:19 Alkaline Phosphatase 53 U/L (34-104) 04/10/19 13:19 Total Protein 7.2 gm/dL (6.0-8.3) 04/10/19 13:19 Albumin 4.0 gm/dL (4.2-5.5) L 04/10/19 13:19 Globulin 3.2 gm/dL 04/10/19 13:19 Albumin/Globulin Ratio 1.3 (1.0-1.8) 04/10/19 13:19 Triglycerides 181 mg/dL (<150) H 04/10/19 13:19 Cholesterol 161 mg/dL (<200) 04/10/19 13:19 LDL Cholesterol Direct 102 mg/dL (75-193) 04/10/19 13:19 HDL Cholesterol 36 mg/dL (23-92) 04/10/19 13:19 TSH 0.77 uIU/ml (0.34-5.60) 04/10/19 13:19 Urine Source RANDOM 04/10/19 14:35 Urine Color YELLOW 04/10/19 14:35 Urine Clarity CLEAR (CLEAR) 04/10/19 14:35 Urine pH 6.0 (4.6 - 8.0) 04/10/19 14:35 Ur Specific [place] 1.015 (1.005-1.030) 04/10/19 14:35 Urine Protein NEGATIVE mg/dL (NEGATIVE) 04/10/19 14:35 Urine Glucose (UA) NEGATIVE mg/dL (NEGATIVE) 04/10/19 14:35 Urine Ketones NEGATIVE mg/dL (NEGATIVE) 04/10/19 14:35 Urine Blood NEGATIVE (NEGATIVE) 04/10/19 14:35 Urine Nitrate NEGATIVE (NEGATIVE) 04/10/19 14:35 Urine Bilirubin NEGATIVE (NEGATIVE) 04/10/19 14:35 Urine Urobilinogen 1.0 E.U./dL (0.2 - 1.0) 04/10/19 14:35 Ur Leukocyte Esterase NEGATIVE (NEGATIVE) 04/10/19 14:35 Urine RBC 0-2 /hpf (0-5) H 04/10/19 14:35 Urine WBC 0-2 /hpf (0-5) 04/10/19 14:35 Ur Epithelial Cells NONE SEEN /lpf (FEW) 04/10/19 14:35 Urine Bacteria FEW /hpf (NONE SEEN) 04/10/19 14:35 RPR NONREACTIVE (NONREACTIVE) 04/10/19 13:19 - Physical Exam Vitals and I&O: Vital Signs Temp 97.6 F 04/20/19 06:17 Pulse 111 04/20/19 06:17 Resp 20 04/20/19 10:30 BP 134/94 04/20/19 06:17 Pulse Ox 97 04/20/19 06:17 Intake & Output 04/19/19 04/20/19 04/20/19 18:59 06:59 18:59 Intake Total 1200 120 Balance 1200 120 Intake: Oral 1200 120 Other: # Voids 3 # Bowel Movements 2 Stool Characteristics Soft Formed Brown Active Medications: Current Medications Acetaminophen (Tylenol) 650 mg PO Q4HR PRN PRN Reason: Mild Pain / Temp above 100 Stop: 06/18/19 15:30 Al Hydrox/Mg Hydrox/Simethicone (Maalox) 30 ml PO Q4HR PRN PRN Reason: GI DISTRESS Stop: 06/18/19 15:30 Last Admin: 04/19/19 16:59 Dose: 30 ml Ascorbic Acid (Vitamin C) 500 mg PO BID DARA Stop: 06/09/19 20:59 Last Admin: 04/20/19 08:27 Dose: 500 mg Benztropine Mesylate (Cogentin) 1 mg PO BID [facility] Stop: 06/09/19 20:59 Last Admin: 04/20/19 08:27 Dose: 1 mg Carbidopa/Levodopa (Sinemet 25mg-100 Mg) 1 tab PO TID DARA Stop: 06/09/19 20:59 Last Admin: 04/20/19 13:06 Dose: 1 tab Docusate Sodium (Colace) 100 mg PO DAILY DARA Stop: 06/10/19 08:59 Last Admin: 04/20/19 08:27 Dose: 100 mg Fenofibrate (Tricor) 134 mg PO HS DARA Stop: 06/09/19 20:59 Last Admin: 04/19/19 21:12 Dose: 134 mg Lactulose (Cephulac) 20 gm PO QID [facility]ARA Stop: 06/09/19 20:59 Last Admin: 04/20/19 13:06 Dose: 20 gm Levetiracetam (Keppra) 500 mg PO BID [facility]ARA Stop: 06/09/19 20:59 Last Admin: 04/20/19 08:26 Dose: 500 mg Levocarnitine (Carnitor) 990 mg PO TID [facility] Stop: 06/10/19 08:59 Last Admin: 04/20/19 13:05 Dose: 990 mg Lorazepam (Ativan) 0.5 mg PO Q4H PRN; Protocol PRN Reason: Anxiety Stop: 06/09/19 20:08 Last Admin: 04/18/19 20:54 Dose: 0.5 mg Magnesium Hydroxide (Milk Of Magnesia) 30 ml PO HS PRN PRN Reason: Constipation Oxybutynin Chloride (Ditropan) 5 mg PO HS DARA Stop: 06/09/19 20:59 Last Admin: 04/19/19 21:11 Dose: 5 mg Pantoprazole Sodium (Protonix) 40 mg PO BIDAC [facility]ARA Stop: 06/10/19 07:29 Last Admin: 04/20/19 06:33 Dose: 40 mg Quetiapine Fumarate (Seroquel) 100 mg PO BID [facility]; Protocol Stop: 06/11/19 16:59 Last Admin: 04/20/19 08:26 Dose: 100 mg Sodium Chloride (Nacl Tab) 1 gm PO BID [facility] Stop: 06/09/19 20:59 Last Admin: 04/20/19 08:27 Dose: 1 gm Zolpidem Tartrate (Ambien) 5 mg PO HSMR1 PRN PRN Reason: Insomnia Stop: 06/18/19 15:30 Last Admin: 04/19/19 21:12 Dose: 5 mg General: demented HEENT: NC/AT, PERRLA Neck: Supple, No LAD Lungs: CTAB Cardiovascular: RRR, Normal S1, Normal S2 Abdomen: soft, non-tender, globular, positive bowel sound Extremities: excoriation, contracture, deformity - Procedures Procedures: Procedures Procedure Code Date COLONOSCOPY W/LESION REMOVAL 61477 09/17/17 EXCISION OF ASCENDING COLON, ENDO, DIAGN [id number] 09/17/17 EXCISION OF RECTUM, ENDO [id number] 09/17/17 EXCISION OF TRANSVERSE COLON, ENDO [id number] 09/17/17 EXCISION OF TRANSVERSE COLON, ENDO, DIAGN [id number] 09/17/17 GROUP PSYCHOTHERAPY 82089 12/06/15 GROUP PSYCHOTHERAPY GZHZZZZ 12/06/15 OTHER GROUP THERAPY 94.44 06/02/14 RECREATIONAL THERAPY 93.81 07/28/11 Internal Medicine Assmt/Plan - Assessment Assessment: ASSESSMENT AND PLAN: Leukopenia, osteoarthritis, hyperglycemia, obesity, hypertension, asthma, COPD, history of stroke, hydrocephalus, status post STATISTICIAN MATHEMATICAL shunt, Parkinson, hypercholesterolemia, seizure, hypertension, and constipation. - Plan Plan: PLAN: We will check the patient's hemoglobin A1c. Continue the patient on Sinemet. We will monitor the patient's white count closely. We will titrate the patient's antihypertensive medication. Continue on seizure medication, continue on Keppra. We will follow consult and recommendations. Nutritional Asmnt/Malnutr-PDOC - Dietary Evaluation Malnutrition Findings (Please click <Entered> for more info): Nutritional Asmnt/Malnutrition Start: 04/15/19 21: 50 Text: Status: Active Freq: Protocol: Document 04/15/19 21:50 MBONUS (Rec: 04/15/19 22:00 MBONUS [id number]) Nutritional Asmnt/Malnutrition Patient General Information Nutritional Screening Moderate Risk Diagnosis PSYCHOSIS Pertinent Medical Hx/Surgical Hx HTN, ASTHMA, COPD, STROKE, PARKINSONS, HYDROCEPHALUS Subjective Information NURSING NOTED INTAKE 100-100- 100% PER NURSING NOTE: "Patient is alert and oriented x2-3. Patient is easily agitated, labile and unpredictable. Patient is medication compliant." Current Diet Order/ Nutrition Support [facility] SOFT CHOPPED, VEGETARIAN Pertinent Medications VIT C, COLACE, CEPHULAC, PROTONIX Pertinent Labs / WBC 4.5, GLUC 148, ALB 4 Nutritional Hx/Data Height 1.83 m Height (Calculated Centimeters) 182.9 Current Weight (lbs) 106.141 kg Weight (Calculated Kilograms) 106.1 Weight (Calculated Grams) 356938.6 [place] Body Weight 178 % [place] Body Weight 131 Body Mass Index (BMI) 31.7 Weight Status Overweight GI Symptoms Last BM TODAY X 1 Skin Integrity/Comment: BAILEY 16 Current %PO Good (75-100%) Estimated Nutritional Goals BEE in Kcals: Using Current wt Calories/Kcals/Kg 20-25 Kcals Calculated 6567-1456 Protein: Using Current wt Protein g/k.8-1 Protein Calculated 85-106 Nutritional Problem 1. Problem Problem NO NUTRITION RELATED CONCERN AT THIS TIME Intervention/Recommendation Comments RD TO FOLLOW UP IN 7 DAYS TO MONITOR PO INTAKE, LABS, WEIGHT Expected Outcomes/Goals Expected Outcomes/Goals PT TO CONTINUE TO CONSUME >75% ESTIMATED NUTRIENT NEEDS LATISHA SANTORO RD
--- NOTE | 2019-04-20 14:03 | Progress Notes ---
DATE: 04/20/2019 SUBJECTIVE: Staff was spoken to. The patient is interviewed. Mood is noted to be less irritable. Affect is appropriate. The patient is not presenting with any threats to harm self. The patient's sexualized behavior has been closely monitored at this time, no major problems are noted. Sleep and appetite are noted to be improving. ASSESSMENT: The patient's mood swings are coming under control. PLAN: To continue the patient with the supportive therapy and followup. JOB# [id number]
[2019-04-20] MEDS: Fenofibrate, Micronized 134 mg Cap PO SCH (20:51)
[2019-04-21] MEDS: Pantoprazole 40 mg EC Tab PO SCH (06:36)
[2019-04-21] MEDS: Lactulose 10 Gm/15 mL 30mL UDC PO SCH ×2 (08:43→14:04)
[2019-04-21] MEDS: Multivitamin w/ Minerals Tab PO SCH (08:44)
[2019-04-21] MEDS: Benztropine 1 MG TAB PO SCH (08:46)
--- NOTE | 2019-04-21 12:38 | Internal Medicine Prog Note ---
Internal Medicine Subjective - Subjective Patient seen and examined:: with staff, chart reviewed Patient is:: awake, verbal, interactive, confused Per staff patient has:: no adverse event, no episodes of fall, poor appetite, tolerating meds Internal Medicine Objective - Results Result Diagrams: 04/10/19 13:19 04/10/19 13:19 Recent Labs: Laboratory Last Values WBC 4.5 Th/cmm (4.8-10.8) L 04/10/19 13:19 RBC 5.30 Mil/cmm (3.80-5.80) 04/10/19 13:19 Hgb 13.1 gm/dL (12-16) 04/10/19 13:19 Hct 41.7 % (41.0-60) 04/10/19 13:19 MCV 78.7 fl (80-99) L 04/10/19 13:19 MCH 24.7 pg (27.0-31.0) L 04/10/19 13:19 MCHC Differential 31.4 pg (28.0-36.0) 04/10/19 13:19 RDW 18.1 % (11.5-20.0) 04/10/19 13:19 Plt Count 168 Th/cmm (150-400) 04/10/19 13:19 MPV 8.5 fl 04/10/19 13:19 Neutrophils % 60.2 % (40.0-80.0) 04/10/19 13:19 Lymphocytes % 28.2 % (20.0-50.0) 04/10/19 13:19 Monocytes % 6.5 % (2.0-10.0) 04/10/19 13:19 Eosinophils % 4.1 % (0.0-5.0) 04/10/19 13:19 Basophils % 1.0 % (0.0-2.0) 04/10/19 13:19 Sodium 136 mEq/L (136-145) 04/10/19 13:19 Potassium 3.6 mEq/L (3.5-5.1) 04/10/19 13:19 Chloride 102 mEq/L (98-107) 04/10/19 13:19 Carbon Dioxide 26.6 mEq/L (21.0-31.0) 04/10/19 13:19 Anion Gap 11.0 (7.0-16.0) 04/10/19 13:19 BUN 12 mg/dL (7-25) 04/10/19 13:19 Creatinine 0.7 mg/dL (0.7-1.3) 04/10/19 13:19 Est GFR ( Amer) > 60.0 ml/min (>90) 04/10/19 13:19 Est GFR (Non-Af Amer) > 60.0 ml/min 04/10/19 13:19 BUN/Creatinine Ratio 17.1 04/10/19 13:19 Glucose 148 mg/dL (70-105) H 04/10/19 13:19 Calcium 9.4 mg/dL (8.6-10.3) 04/10/19 13:19 Total Bilirubin 0.5 mg/dL (0.3-1.0) 04/10/19 13:19 AST 24 U/L (13-39) 04/10/19 13:19 ALT 17 U/L (7-52) 04/10/19 13:19 Alkaline Phosphatase 53 U/L (34-104) 04/10/19 13:19 Total Protein 7.2 gm/dL (6.0-8.3) 04/10/19 13:19 Albumin 4.0 gm/dL (4.2-5.5) L 04/10/19 13:19 Globulin 3.2 gm/dL 04/10/19 13:19 Albumin/Globulin Ratio 1.3 (1.0-1.8) 04/10/19 13:19 Triglycerides 181 mg/dL (<150) H 04/10/19 13:19 Cholesterol 161 mg/dL (<200) 04/10/19 13:19 LDL Cholesterol Direct 102 mg/dL (75-193) 04/10/19 13:19 HDL Cholesterol 36 mg/dL (23-92) 04/10/19 13:19 TSH 0.77 uIU/ml (0.34-5.60) 04/10/19 13:19 Urine Source RANDOM 04/10/19 14:35 Urine Color YELLOW 04/10/19 14:35 Urine Clarity CLEAR (CLEAR) 04/10/19 14:35 Urine pH 6.0 (4.6 - 8.0) 04/10/19 14:35 Ur Specific [place] 1.015 (1.005-1.030) 04/10/19 14:35 Urine Protein NEGATIVE mg/dL (NEGATIVE) 04/10/19 14:35 Urine Glucose (UA) NEGATIVE mg/dL (NEGATIVE) 04/10/19 14:35 Urine Ketones NEGATIVE mg/dL (NEGATIVE) 04/10/19 14:35 Urine Blood NEGATIVE (NEGATIVE) 04/10/19 14:35 Urine Nitrate NEGATIVE (NEGATIVE) 04/10/19 14:35 Urine Bilirubin NEGATIVE (NEGATIVE) 04/10/19 14:35 Urine Urobilinogen 1.0 E.U./dL (0.2 - 1.0) 04/10/19 14:35 Ur Leukocyte Esterase NEGATIVE (NEGATIVE) 04/10/19 14:35 Urine RBC 0-2 /hpf (0-5) H 04/10/19 14:35 Urine WBC 0-2 /hpf (0-5) 04/10/19 14:35 Ur Epithelial Cells NONE SEEN /lpf (FEW) 04/10/19 14:35 Urine Bacteria FEW /hpf (NONE SEEN) 04/10/19 14:35 RPR NONREACTIVE (NONREACTIVE) 04/10/19 13:19 - Physical Exam Vitals and I&O: Vital Signs Temp 97 F 04/21/19 11:10 Pulse 84 04/21/19 11:10 Resp 19 04/21/19 11:10 BP 131/71 04/21/19 06:19 Pulse Ox 98 04/21/19 11:10 Intake & Output 04/20/19 04/21/19 04/21/19 18:59 06:59 18:59 Intake Total 300 Balance 300 Intake: Oral 300 Other: # Voids 1 # Bowel Movements 0 Stool Characteristics Soft Formed Brown Active Medications: Current Medications Acetaminophen (Tylenol) 650 mg PO Q4HR PRN PRN Reason: Mild Pain / Temp above 100 Stop: 06/18/19 15:30 Last Admin: 04/21/19 04:16 Dose: 650 mg Al Hydrox/Mg Hydrox/Simethicone (Maalox) 30 ml PO Q4HR PRN PRN Reason: GI DISTRESS Stop: 06/18/19 15:30 Last Admin: 04/19/19 16:59 Dose: 30 ml Ascorbic Acid (Vitamin C) 500 mg PO BID [facility]ARA Stop: 06/09/19 20:59 Last Admin: 04/21/19 08:44 Dose: 500 mg Benztropine Mesylate (Cogentin) 1 mg PO BID [facility] Stop: 06/09/19 20:59 Last Admin: 04/21/19 08:46 Dose: 1 mg Carbidopa/Levodopa (Sinemet 25mg-100 Mg) 1 tab PO TID [facility]ARA Stop: 06/09/19 20:59 Last Admin: 04/20/19 20:51 Dose: 1 tab Docusate Sodium (Colace) 100 mg PO DAILY [facility]ARA Stop: 06/10/19 08:59 Last Admin: 04/21/19 08:44 Dose: 100 mg Fenofibrate (Tricor) 134 mg PO HS [facility] Stop: 06/09/19 20:59 Last Admin: 04/20/19 20:51 Dose: 134 mg Lactulose (Cephulac) 20 gm PO QID [facility] Stop: 06/09/19 20:59 Last Admin: 04/21/19 08:43 Dose: 20 gm Levetiracetam (Keppra) 500 mg PO BID [facility] Stop: 06/09/19 20:59 Last Admin: 04/21/19 08:44 Dose: 500 mg Levocarnitine (Carnitor) 990 mg PO TID [facility] Stop: 06/10/19 08:59 Last Admin: 04/21/19 08:45 Dose: 990 mg Lorazepam (Ativan) 0.5 mg PO Q4H PRN; Protocol PRN Reason: Anxiety Stop: 06/09/19 20:08 Last Admin: 04/18/19 20:54 Dose: 0.5 mg Magnesium Hydroxide (Milk Of Magnesia) 30 ml PO HS PRN PRN Reason: Constipation Oxybutynin Chloride (Ditropan) 5 mg PO HS [facility] Stop: 06/09/19 20:59 Last Admin: 04/20/19 20:53 Dose: 5 mg Pantoprazole Sodium (Protonix) 40 mg PO BIDAC [facility] Stop: 06/10/19 07:29 Last Admin: 04/21/19 06:36 Dose: 40 mg Quetiapine Fumarate (Seroquel) 100 mg PO BID [facility]; Protocol Stop: 06/11/19 16:59 Last Admin: 04/21/19 08:44 Dose: 100 mg Sodium Chloride (Nacl Tab) 1 gm PO BID [facility] Stop: 06/09/19 20:59 Last Admin: 04/21/19 08:44 Dose: 1 gm Zolpidem Tartrate (Ambien) 5 mg PO HSMR1 PRN PRN Reason: Insomnia Stop: 06/18/19 15:30 Last Admin: 04/20/19 21:56 Dose: 5 mg General: demented HEENT: NC/AT, PERRLA Neck: Supple, No LAD Lungs: CTAB Cardiovascular: RRR, Normal S1, Normal S2 Abdomen: soft, non-tender, globular, positive bowel sound Extremities: excoriation, contracture, deformity - Procedures Procedures: Procedures Procedure Code Date COLONOSCOPY W/LESION REMOVAL 24402 09/17/17 EXCISION OF ASCENDING COLON, ENDO, DIAGN [id number] 09/17/17 EXCISION OF RECTUM, ENDO [id number] 09/17/17 EXCISION OF TRANSVERSE COLON, ENDO [id number] 09/17/17 EXCISION OF TRANSVERSE COLON, ENDO, DIAGN [id number] 09/17/17 GROUP PSYCHOTHERAPY 18470 12/06/15 GROUP PSYCHOTHERAPY GZHZZZZ 12/06/15 OTHER GROUP THERAPY 94.44 06/02/14 RECREATIONAL THERAPY 93.81 07/28/11 Internal Medicine Assmt/Plan - Assessment Assessment: ASSESSMENT AND PLAN: Leukopenia, osteoarthritis, hyperglycemia, obesity, hypertension, asthma, COPD, history of stroke, hydrocephalus, 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 - Plan Plan: PLAN: We will check the patient's hemoglobin A1c. Continue the patient on Sinemet. We will monitor the patient's white count closely. We will titrate the patient's antihypertensive medication. Continue on seizure medication, continue on Keppra. We will follow consult and recommendations. Nutritional Asmnt/Malnutr-PDOC - Dietary Evaluation Malnutrition Findings (Please click <Entered> for more info): Nutritional Asmnt/Malnutrition Start: 04/15/19 21: 50 Text: Status: Active Freq: Protocol: Document 04/15/19 21:50 MBONUS (Rec: 04/15/19 22:00 MBONUS [id number]) Nutritional Asmnt/Malnutrition Patient General Information Nutritional Screening Moderate Risk Diagnosis PSYCHOSIS Pertinent Medical Hx/Surgical Hx HTN, ASTHMA, COPD, STROKE, PARKINSONS, HYDROCEPHALUS Subjective Information NURSING NOTED INTAKE 100-100- 100% PER NURSING NOTE: "Patient is alert and oriented x2-3. Patient is easily agitated, labile and unpredictable. Patient is medication compliant." Current Diet Order/ Nutrition Support [facility] SOFT CHOPPED, VEGETARIAN Pertinent Medications VIT C, COLACE, CEPHULAC, PROTONIX Pertinent Labs /6 WBC 4.5, GLUC 148, ALB 4 Nutritional Hx/Data Height 1.83 m Height (Calculated Centimeters) 182.9 Current Weight (lbs) 106.141 kg Weight (Calculated Kilograms) 106.1 Weight (Calculated Grams) 811656.6 [place] Body Weight 178 % [place] Body Weight 131 Body Mass Index (BMI) 31.7 Weight Status Overweight GI Symptoms Last BM TODAY X 1 Skin Integrity/Comment: BAILEY 16 Current %PO Good (75-100%) Estimated Nutritional Goals BEE in Kcals: Using Current wt Calories/Kcals/Kg 20-25 Kcals Calculated 1902-8641 Protein: Using Current wt Protein g/k.8-1 Protein Calculated 85-106 Nutritional Problem 1. Problem Problem NO NUTRITION RELATED CONCERN AT THIS TIME Intervention/Recommendation Comments RD TO FOLLOW UP IN 7 DAYS TO MONITOR PO INTAKE, LABS, WEIGHT Expected Outcomes/Goals Expected Outcomes/Goals PT TO CONTINUE TO CONSUME >75% ESTIMATED NUTRIENT NEEDS LATISHA SANTORO RD
[2019-04-21] MEDS ORDERED: Venelex 60gm Tube TP SCH (15:15)
--- NOTE | 2019-04-21 21:13 | Discharge Summary ---
DATE OF DISCHARGE: 04/21/2019 IDENTIFYING DATA: The patient is a 68-year-old male, resident of [facility]. Information obtained by directly interviewing the patient as well as reviewing the admission papers and they are reliable. CHIEF COMPLAINT: "I don't know, they sent me in here." DIAGNOSES AT THE TIME OF ADMISSION: AXIS I: Schizoaffective disorder, psychotic at this time. AXIS II: None. AXIS III: As per Dr. Harden. HISTORY OF PRESENT ILLNESS: Please refer to the 04/11/2019 dictation done by me. Physical examination at the time of admission was done by Dr. Harden and is noted to be significant for hypertension, bronchial asthma, COPD, history of CVA, Parkinson's disease, hydrocephalus, status post FEATURES REPORTER shunt. HOSPITAL COURSE AND RESPONSE TO TREATMENT: The patient has had blood work done at the time of hospitalization has been reviewed by Dr. Harden and the patient has been closely monitored. I encouraged to participate in the groups and verbalize the concerns. The patient has been started on the Seroquel, which was given at 100 mg twice a day and the patient has been monitored. The patient started to stabilize and was discharged on 04/21/2019 with recommendation that he is going to be seeking treatment by Dr. Mabry on an outpatient basis. MENTAL STATUS EXAMINATION: At the time of discharge, the patient's mood is noted to be anxious. Affect is appropriate. Not suicidal or homicidal. Coping skills are noted to be fair. No side effects to the medications are noted at the time of the discharge. The patient has been able to verbalize the concerns rather than to act out. CONDITION: At the time of discharge noted to be stable. DIAGNOSES AT THE TIME OF DISCHARGE: AXIS I: Schizoaffective disorder. AXIS II: None. AXIS III: Hypertension, cerebrovascular accident, Parkinson's disease, and hydrocephalus, status post FEATURES REPORTER shunt. AFTERCARE PLAN: The patient is discharged to the [facility] for further follow by Dr. Mabry. PROGNOSIS: At the time of discharge noted to be fair with the treatment. JOB# [id number]
--- NOTE | 2019-04-22 17:15 | Progress Notes ---
DATE: 04/21/2019 PSYCHOLOGY PROGRESS NOTE SUBJECTIVE: The patient is seen and is interviewed. Case is discussed with staff. The patient presents as generally dismissive; however, less emotionally reactive. The patient denied any thoughts of harm to himself or to others. Staff reports the patient has not made any overt sexualized behavior or comments. The patient is taking his p.o. medications. The patient stated that he is ready to discharge. OBJECTIVE: Mood is less irritable. Affect is mood congruent. Thought process shows to be concrete, but more goal oriented. The patient denied any hallucinations or delusions. The patient has been compliant with his care and treatment. ASSESSMENT AND PLAN: The patient's mood fluctuations are stabilizing and coming under control. We provided positive reinforcement for the patient to stay compliant with his care and treatment and to follow through with staff direction at this facility. We provided coping strategies for phase of life issues as well as for chronic severe mental illness. We encouraged the patient to demonstrate emotional and self-regulation by verbalizing his concerns versus acting out. No followup is indicated. The staff reports the patient is scheduled to discharge today. JOB# [id number] [place]
== END 2019-04-21 15:45 | DRG 885 ==
LOC: ER 12:24 → GERO2 15:57 → GERO 04-11 16:15
DX: F25.9 Schizoaffective disorder, unspecified (principal); D72.829 Elevated white blood cell count, unspecified; E66.9 Obesity, unspecified; G20 Parkinson's disease; J44.9 Chronic obstructive pulmonary disease, unspecified; I10 Essential (primary) hypertension; E78.5 Hyperlipidemia, unspecified; R56.9 Unspecified convulsions; M19.011 Primary osteoarthritis, right shoulder; D72.819 Decreased white blood cell count, unspecified; R73.9 Hyperglycemia, unspecified; E78.00 Pure hypercholesterolemia, unspecified; K59.00 Constipation, unspecified; Z68.31 Body mass index [BMI] 31.0-31.9, adult; Z88.0 Allergy status to penicillin; Z86.73 Personal history of transient ischemic attack (TIA), and cerebral infarction without residual deficits
CPT/HCPCS: 36415-UA; 71045-TC; 73030-TC-RT; 80053-TC; 80061-TC; 81001-TC; 83036-90; 84443-TC; 85025-TC; 86592-TC; 93005; G0410; Z7610